=== PATIENT | female | born 1980 | race Caucasian/White ===

== ENCOUNTER 2024-06-10 12:44 | Outpatient (OUT) | payer OTHER, SELFPAY | END 2024-06-10 12:45 | disposition home or self-care (01) | LOC: SLEEP 12:44 | PROVIDERS: PCP Family Medicine; Visit Provider Family Medicine | DX: G47.33 Obstructive sleep apnea (adult) (pediatric) (principal) | CPT/HCPCS: 95806 ==

== ENCOUNTER 2024-10-01 15:47 | Outpatient (OUT) | payer OTHER, SELFPAY ==
[2024-10-01 16:42] LABS: Basophils Absolute Auto 0.1 10^3/uL (0.0-0.1); Basophils Percent Auto 0.9 % (0.2-2.0); Eosinophils Absolute Auto 0.3 10^3/uL (0.0-0.7); Eosinophils Percent Auto 4.9 % (0.9-7.0); Hematocrit 32.7 % (36.0-48.0); Hemoglobin 10.4 g/dL (12.0-16.0); Immature Granulocytes Abs Auto 0.01 10^3/uL (0.00-0.03); Immature Granulocytes Pct Auto 0.2 % (0.0-0.5); Lymphocytes Absolute Auto 2.2 10^3/uL (1.2-3.8); Lymphocytes Percent Auto 37.1 % (20.5-60.0); Mean Corpuscular HGB Conc 31.8 g/dL (29.9-35.2); Mean Corpuscular Hemoglobin 26.4 pg (26.7-34.0); Mean Platelet Volume 11.1 fL (9.5-13.5); Monocytes Absolute Auto 0.4 10^3/uL (0.3-0.8); Monocytes Percent Auto 7.1 % (1.7-12.0); Neutrophils Absolute Auto 2.9 10^3/uL (1.4-6.5); Neutrophils Percent Auto 49.8 % (43.0-75.0); Platelet Count 334 10^3/uL (150-450); Red Blood Count 3.94 10^6/uL (4.20-5.40); Red Cell Distribution Width 13.7 % (11.0-15.0); White Blood Count 5.9 10^3/uL (4.0-11.0)
[2024-10-01 16:56] LABS: Erythrocyte Sedimentation Rate 51 mm/hr (<=20)
[2024-10-01 17:01] LABS: Free T4 0.92 ng/dL (0.76-1.46)
[2024-10-01 17:04] LABS: Alanine Aminotransferase 19 U/L (14-59); Albumin Globulin Ratio 0.9; Albumin Level 3.5 g/dL (3.4-5.0); Alkaline Phosphatase 105 U/L (46-116); Anion Gap 12.9; Aspartate Amino Transferase 21 U/L (15-37); Bilirubin Total 0.3 mg/dL (0.2-1.0); C Reactive Protein 1.06 mg/dL (<=0.50); Calcium 8.9 mg/dL (8.5-10.1); Carbon Dioxide 25.3 mmol/L (21.0-32.0); Chloride 105 mmol/L (98-107); Estimated GFR (African America >60 (>=60 mL/min/1.73m^2); Estimated GFR (Non-African Ame >60 (>=60 mL/min/1.73m^2); Glucose 101 mg/dL (74-106); Potassium 4.2 mmol/L (3.5-5.1); Sodium 139 mmol/L (136-145); Thyroid Stimulating Hormone 12.753 uIU/mL (0.358-3.740); Total Protein 7.5 g/dL (6.4-8.2); Uric Acid 3.7 mg/dL (2.6-6.0)
[2024-10-03 06:08] LABS: Antistreptolysin O Ab 247.9 IU/mL (0.0-200.0)
[2024-10-03 15:08] LABS: Anti-DNA (DS) Ab Qn <1 IU/mL (0-9); Antichromatin Antibodies <0.2 AI (0.0-0.9); RNP Antibodies <0.2 AI (0.0-0.9); Rheumatoid Factor (RF) <10.0 IU/mL (<14.0); Sjogren's Anti-SS-A <0.2 AI (0.0-0.9); Sjogren's Anti-SS-B 0.3 AI (0.0-0.9)
[2024-10-07 11:09] LABS: Antinuclear Antibodies, IFA Negative (.)
== END 2024-10-01 15:48 | disposition home or self-care (01) ==
LOC: LAB 15:48
PROVIDERS: PCP Family Medicine; Visit Provider Family Medicine
DX: M25.50 Pain in unspecified joint (principal)
CPT/HCPCS: 36415; 80053; 84439; 84443; 84550; 85025; 85652; 86038; 86060; 86140

== ENCOUNTER 2024-10-03 10:28 | Outpatient (REF) | payer OTHER, SELFPAY ==
--- OUTSIDE RECORDS SUMMARY | 2024-10-03 10:43 | XMS_ITS | CCD ---
Author Organization [facility] Care Team Providers Care Applications Developer Name Role Phone UNKNOWN, PROVIDER Unavailable Unavailable DESI MANJARREZ Unavailable Unavailable Desi Manjarrez Primary Care Provider Desi Manjarrez Primary Care Provider PREETI GARZON Attending Unavailable DESI MANJARREZ Primary Care Unavailable ELOY ESCALANTE Attending Unavailable DESI MANJARREZ Primary Care Unavailable PREETI GARZON Admitting Unavailable PREETI GARZON Attending Unavailable DESI MANJARREZ Primary Care Unavailable PREETI GARZON Attending Unavailable ELOY ESCALANTE Referring Unavailable DESI MANJARREZ Primary Care Unavailable PREETI GARZON Admitting Unavailable Desi Manjarrez Primary Care Provider Desi aMnjarrez Primary Care Provider Desi Manjarrez Primary Care Provider ROB NG Attending Unavailable DESI MANJARREZ Primary Care Unavailable DESI MANJARREZ Primary Care Unavailable ITALIA VERNON Attending Unavailable DESI MANJARREZ Primary Care Unavailable JOSELINE CADET Attending Unavailable Desi Manjarrez MD Primary Care Provider DR DESI MANJARREZ Primary Care Unavailable DR GAEL PA Admitting Unavailable THIERNO, DR MAYO Attending Unavailable DR GAEL PA Consulting Unavailable KITTY JEWELL Consulting Unavailable Desi Manjarrez MD Primary Care Provider [phone] Desi Manjarrez MD Primary Care Provider DESI MANJARREZ Primary Care Unavailable JOSE ADEN Attending Unavailable FANG, GWENDOLINE Admitting Unavailable FANG, GWENDOLINE Attending Unavailable FANG, GWENDOLINE Referring Unavailable HOY, DESI M Primary Care Unavailable FANG, GWENDOLINE Admitting Unavailable FANG, GWENDOLINE Attending Unavailable JOSSELINE, DESI M Primary Care Unavailable Desi Manjarrez MD Primary Care Provider [phone] Antolin CASTREJON, Carlos Callahan Attending Unavailab aroldo Dangelo MD, Carlos Callahan Attending Unavailab Desi Navarrete MD Primary Care Unavailepifanio Dangelo MD, Carlos Callahan Attending Unavailab Desi Navarrete MD Primary Care Provider [phone] ARTIE BURDEN Attending Unavailable HOY, DESI M Primary Care Unavailable WHARRBETZAIDA Pineda I Attending Unavailable UMERARRChelita BETZAIDA I Referring Unavailable WHARRChelita, BETZAIDA I Admitting Unavailable WHARRBETZAIDA Pineda I Attending Unavailable DANIELA ASTORGA Attending Unavailable YESENIA BENDER Attending Unavailable WHARRY, BETZAIDA Referring Unavailable HOY, DESI M Primary Care Unavailable IOANA CLINTON I Attending Unavailable NGUYEN HERNANDEZ Attending Unavailabl e NGUYEN HERNANDEZ Referring Unavailabl e HOY, DESI M Primary Care Unavailable NGUYEN HERNANDEZ Attending Unavailabl e NGUYEN HERNANDEZ Referring Unavailabl e HOY, DESI M Primary Care Unavailable NGUYEN HERNANDEZ Attending Unavailabl e NGUYEN HERNANDEZ Referring Unavailabl e HOY, DESI M Primary Care Unavailable MARLEN DEVI F Admitting Unavail able MARLEN DEVI F Attending Unavail able HOY, DESI M Primary Care Unavailable NGUYEN HERNANDEZ Attending Unavailabl e NGUYEN HERNANDEZ Referring Unavailabl e HOY, DESI M Primary Care Unavailable NGUYEN HERNANDEZ Referring Unavailabl e HOY, DESI M Primary Care Unavailable Allergies Allergy Classification Reported Allergen(s) Allergy Type Date of Onset Reaction(s) Facility Cephalosporins (antibiotic) (1 source) cefTRIAXone Drug Allergy 10-22-19 Rash [facility] Sulfonamides (antibiotic) (1 source) Sulfonamides (Antibiotic) Drug Allergy 05-13-20 [facility] (20 sources) cefTRIAXone; Translations: [Unknown] Drug Allergy 10-22-19 Rash [facility] (6 sources) Sulfonamides (Antibiotic) Propensity to adverse reactions to drug 05-13-20 [place] (1 source) cefTRIAXone Drug Allergy 12-05-19 [facility] (1 source) Sulfamethoxazole / Trimethoprim Drug Allergy 06-18-20 [facility] (11 sources) Sulfonamides (Antibiotic) Propensity to adverse reactions to drug 05-13-20 [facility] (3 sources) Sulfonamides (Antibiotic); Translations: [SULFA (SULFONAMIDE ANTIBIOTICS)] Propensity to adverse reactions to drug (disorder) 04-23-20 [facility] Repository Medications Current Medications Medication Drug Class(es) Dates Sig (Normalized) Sig (Original) acetaminophen 325 mg / HYDROcodone bitartrate 5 mg oral tablet (15 sources) Opioid Agonist Start: 02-18-2024 End: 02-23-2024 HYDROcodone-acetamin ophen (NORCO) 5-325 MG per tablet Indications: Postoperative pain Take 1 tablet by mouth every 6 hours as needed for Pain for up to 5 days. Intended supply: 5 days. Take lowest dose possible to manage pain Max Daily Amount: 4 tablets 10 tablet 0 02/18/2024 02/23/2024 Active Start: 04-25-2020 End: 04-25-2020 HYDROcodone-acetaminophen (N ORCO) 5-325 MG per tablet 2 tablet Start: 04-25-2020 End: 04-28-2020 take 1 tablet by mouth every eight hours as needed for pain HYDROcodone-acetaminophen (NORCO) 5-325 mg per tablet TAKE 1 TABLET BY MOUTH EVERY 8 HOURS NEEDED FOR PAIN for up to 3 (THREE) days 0 04/29/2020 Active Start: 10-21-2019 End: 10-22-2019 take 1 tablet by mouth every four hours as needed HYDROcodone-acetaminophen (NORCO) 5-325 mg per tablet 1 tablet Start: 08-02-2019 End: 08-03-2019 hydroCODone-acetaminophen (N ORCO) 5-325 MG per tablet 1 Each Start: 08-02-2019 End: 11-20-2022 take 1 tablet by mouth every six hours as needed for pain hydroCODone-acetaminophen 5-325 MG Tab tablet Indications: Kidney stone Take 1 tablet by mouth every 6 hours as needed for Severe Pain for up to 3 days. 12 tablet 0 08/02/2019 11/20/2022 Discontinued (Stop Taking at Discharge) Start: 05-14-2019 End: 05-17-2019 take 1 tablet by mouth every eight hours as needed for pain HYDROcodone-acetaminophen (NORCO) 5-325 MG per tablet Indications: Kidney stone Take 1 tablet by mouth every 8 hours as needed for Pain for up to 3 days. 9 tablet 0 05/14/2019 05/17/2019 Active calcium chloride 0.0014 meq/ ml / potassium chloride 0.004 meq/ml / sodium chloride 0.103 meq/ml / sodium lactate 0.028 meq/ml injectable solution (2 sources) Start: 02-18-2024 lactated ringe rs IV soln infusion Start: 12-26-2021 lactated ringe rs infusion cholecalciferol 0.05 mg oral capsule (6 sources) Vitamin D Start: 11-27-2023 take 1 capsule by mouth once daily Cholecalciferol (Vitamin D3) 50 MCG capsule Take 50 mcg by mouth daily. 11/27/2023 Active ciprofloxacin 500 mg oral tablet (3 sources) Quinolone Antimicrobial Start: 10-22-2019 End: 10-29-2019 take 1 tablet by mouth twice daily ciprofloxacin HCl (Cipro) 500 MG tablet Take 1 (one) tablet (500 mg total) by mouth 2 (two) times a day for 7 days . 14 tablet 0 10/22/2019 10/29/2019 Active Start: 05-14-2019 End: 05-24-2019 take 1 tablet by mouth twice daily ciprofloxacin (CIPRO) 500 MG tablet Take 1 tablet by mouth 2 times daily for 10 days 20 tablet 0 05/14/2019 05/24/2019 Active cyclobenzaprine hydrochloride 10 mg oral tablet (4 sources) Muscle Relaxant Start: 11-29-2023 End: 11-29-2023 10 mg, Oral, ONCE, 1 dose, On Mely 11/29/23 at 2215, Dispense to home- home pack Start: 11-29-2023 End: 12-04-2023 take 1 tablet by mouth three times daily as needed for muscle spasms Cyclobenzaprine 10 MG tablet Take 1 tablet by mouth 3 times daily as needed for Muscle spasms for up to 5 days. This medication can cause drowsiness. Do not drive or operate machinery while taking this medication. 15 tablet 11/29/2023 Active drospirenone 3 mg / ethinyl estradiol 0.03 mg oral tablet (3 sources) Progestin, Estrogen Start: 05-13-2020 take 1 tablet by mouth once daily drospirenone-ethinyl estradiol (LEO 28) 3-0.03 MG TABS Indications: Screening for cervical cancer Take 1 tablet by mouth daily 1 packet 12 05/13/2020 Active escitalopram 10 mg oral tablet (6 sources) Serotonin Reuptake Inhibitor Start: 09-02-2024 take 1 tablet by mouth once daily escitalopram (LEXAPRO) 10 MG tablet Indications: Adjustment disorder with depressed mood Take 1 tablet by mouth daily 30 tablet 11 09/02/2024 Active Start: 05-28-2023 take 1 tablet by val th once daily escitalopram (LEXAPRO) 10 MG tablet Indications: Adjustment disorder with depressed mood Take 1 tablet by mouth daily 30 tablet 11 05/28/2023 Active fluconazole 100 mg oral tablet (6 sources) Azole Antifungal Start: 04-25-2020 End: 04-25-2020 fluconazole (DIFLUCAN) tablet 200 mg Start: 04-25-2020 End: 08-25-2020 fluconazole (DIFLUCAN) 100 M G tablet TAKE 1 TABLET BY MOUTH for 1 (ONE) dose after completing oral antibiotics 0 04/29/2020 Active Start: 07-13-2019 End: 07-16-2019 take 1 tablet by mouth once daily fluconazole (DIFLUCAN) 100 MG tablet Take 1 tablet by mouth daily for 3 days 3 tablet 0 07/13/2019 07/16/2019 Active ibuprofen 800 mg oral tablet (19 sources) Nonsteroidal Anti-inflammatory Drug Start: 11-20-2022 take 1 tablet by mouth every eight hours as needed for pain ibuprofen (ADVIL;MOTRIN) 800 MG tablet Indications: Frontal headache TAKE 1 TABLET BY MOUTH EVERY 8 HOURS NEEDED FOR PAIN 60 tablet 05/23/2023 Active Start: 05-14-2019 take 1 tablet by val th every six hours as needed for pain ibuprofen (IBU) 600 MG tablet Take 1 tablet by mouth every 6 hours as needed for Pain 30 tablet 0 05/14/2019 Suspended End: 07-13-2019 take 1 tablet by mouth every six hours as needed for pain ibuprofen (ADVIL;MOTRIN) 200 MG tablet Take 200 mg by mouth every 6 hours as needed for Pain 0 07/13/2019 Discontinued (LIST CLEANUP) ketorolac tromethamine 10 mg oral tablet (4 sources) Nonsteroidal Anti-inflammatory Drug, Cyclooxygenase Inhibitor Start: 02-18-2024 End: 02-17-2025 take 1 tablet by mouth every six hours as needed for pain ketorolac (TORADOL) 10 MG tablet Take 1 tablet by mouth every 6 hours as needed for Pain 20 tablet 0 02/18/2024 02/17/2025 Active Start: 12-26-2021 End: 12-26-2022 take 1 tablet by mouth every six hours as needed for pain ketorolac (TORADOL) 10 MG tablet Take 1 tablet by mouth every 6 hours as needed for Pain 10 tablet 0 12/26/2021 12/26/2022 Active Start: 10-21-2019 End: 10-21-2019 ketorolac (TORADOL) injectio n 30 mg Start: 05-14-2019 End: 05-14-2019 ketorolac (TORADOL) injectio n 30 mg levothyroxine sodium 0.15 mg oral tablet (6 sources) l-Thyroxine Start: 01-22-2024 take 1 tablet by mouth once daily levothyroxine (SYNTHROID) 150 MCG tablet Take 1 tablet by mouth daily 01/23/2024 Active 2 ml metoclopramide 5 mg/ml prefilled syringe (1 source) Dopamine-2 Receptor Antagonist Start: 02-18-2024 End: 02-19-2024 10 mg, IntraVENous, ONCE PRN, 1 dose, Starting on Sun02/18/24 at 1719, Until Sun02/19/24 at 1719, Nausea Secondary antiemetic therapy. PACU only naloxone 0.4 mg in 10 mL sodium chloride syringe (1 source) Start: 02-18-2024 IntraVENous, PRN, Opioid Reversal, Starting on Sun02/18/24 at 1719 PRN if respiratory rate is less than 6/min and patient is difficult to arouse then notify physician STAT. Mix 9 mL of sodium chloride 0.9% with 0.4 mg (1 mL) of naloxone (NARCAN) in 10 mL syringe. (Note: dilution is 0.04 mg/mL) Give 0.08 mg (2 mL of special dilution), slow IV push, repeat up to 0.4 mg (10 mL) or until patient is responsive to physical stimulation and respiratory rate is equal to or greater than 6 breaths/min. Continue to observe, if no response within 3 minutes of administration of 0.4 mg (10 mL) total, repeat dose (0.4 mg as administered previously). Concentration 0.04 mg/mL PACU only nitrofurantoin, macrocrystals 25 mg / nitrofurantoin, monohydrate 75 mg oral capsule (4 sources) Nitrofuran Antibacterial Start: 05-11-2020 End: 08-25-2020 take 1 capsule by mouth twice daily nitrofurantoin, macrocrystal-monoh ydrate, (MACROBID) 100 MG capsule TAKE 1 CAPSULE BY MOUTH TWICE DAILY FOR 7 DAYS 0 05/11/2020 Active 2 ml ondansetron 2 mg/ml injection (18 sources) Serotonin-3 Receptor Antagonist Start: 02-18-2024 End: 02-19-2024 4 mg, IntraVENous, ONCE PRN, 1 dose, Starting on Sun02/18/24 at 1719, Until Sun02/19/24 at 1719, Nausea Initial antiemetic therapy. PACU only Start: 11-20-2022 End: 11-20-2022 Ondansetron 4mg/2ml (ZOFRAN) injection 4 mg Start: 04-25-2020 take 1 tablet by val th every six hours as needed for nausea ondansetron (ZOFRAN ODT) 4 MG disintegrating tablet Take 1 tablet by mouth every 6 hours as needed for Nausea or Vomiting 10 tablet 0 04/25/2020 Active Start: 10-21-2019 End: 10-22-2019 take 4 mg intravenous route every six hours as needed ondansetron (ZOFRAN) injection 4 mg Start: 05-14-2019 End: 12-13-2021 take 1 tablet by mouth every four hours as needed for nausea ondansetron (ZOFRAN ODT) 4 MG disintegrating tablet Take 1 tablet by mouth every 4 hours as needed for Nausea or Vomiting 10 tablet 0 05/14/2019 12/13/2021 Discontinued (Therapy completed) 24 hr oxybutynin chloride 10 mg extended release oral tablet (4 sources) Cholinergic Muscarinic Antagonist Start: 10-22-2019 End: 11-01-2019 take 1 tablet by mouth once daily oxybutynin (DITROPAN-XL) 10 MG 24 hr tablet Take 1 (one) tablet (10 mg total) by mouth daily for 10 days . 10 tablet 0 10/22/2019 11/01/2019 Active phenazopyridine hydrochloride 100 mg oral tablet (4 sources) Start: 10-22-2019 End: 11-01-2019 take 1 tablet by mouth three times daily phenazopyridine (PYRIDIUM) 100 MG tablet Take 1 (one) tablet (100 mg total) by mouth 3 (three) times a day for 10 days . 30 tablet 0 10/22/2019 11/01/2019 Active predniSONE 20 mg oral tablet (2 sources) Start: 11-29-2023 End: 11-29-2023 take 1 dose by mouth once 40 mg, Oral, ONCE, 1 dose, On Mely 11/29/23 at 2215 Start: 11-29-2023 End: 12-03-2023 take 2 tablets by mouth once daily predniSONE 20 MG tablet Take 2 tablets by mouth daily for 4 days. 8 tablet 11/29/2023 12/03/2023 Active Vit-Fe Fumarate-FA ( VITAMINS) 28-0.8 MG TABS (3 sources) Start: 09-28-2022 take 1 tablet by val th once daily Vit-Fe Fumarate-FA ( VITAMINS) 28-0.8 MG TABS Take 1 tablet by mouth daily 90 tablet 3 09/28/2022 Active Hnlppajke-Tmuhhlzqu-Y orethind (Myfembree) 40-1-0.5 MG tablet (2 sources) Start: 07-10-2023 Relugolix-Estr adiol-N orethind (Myfembree) 40-1-0.5 MG tablet Take 40 mg by mouth daily. 07/10/2023 Active Hbjwxpiwk-Dmreaoliu-G orethind 40-1-0.5 MG TABS (6 sources) Start: 07-10-2023 take 1 tablet by val th once daily Rkeygxfeg-Bnklscqbc-A orethind 40-1-0.5 MG TABS Take 1 tablet by mouth daily 30 tablet 5 07/10/2023 Active 5 ml sodium chloride 9 mg/ml injection (18 sources) Start: 02-18-2024 take 1 dose intravenously twice daily 5-40 mL, IntraVENous, EVERY 12 HOURS SCHEDULED (2 times per day), First dose on Sun02/18/24 at 2100, Until Discontinued For Line Patency: Peripheral IV = 5 mL; Midline or Central Line = 10 mL/lumen. &n bsp;If following IV push medication, administer flush at same rate as the IV push. Flush volume is determined by type of infusion therapy being given. For non-viscous solutions use: Peripheral IV = 5 mL Midline or Central Line = 10 mL/lumen F or viscous solutions (i.e. blood components, parenteral nutrition, contrast media, or after obtaining blood sample) use: Peripheral IV = 10 mL Midline or Central Line = 20 mL/lumen PACU only Start: 02-18-2024 sodium chlorid e flush 0.9 % injection 5-40 mL Start: 02-18-2024 IntraVENous, a t 5-250 mL/hr, PRN, if patient receiving piggyback infusions and maintenance fluids are not ordered OR KVO fluids to protect IV site / prevent frequent line interruptions/ long duration, Starting on Sun02/18/24 at 1719 For piggyback infusion, administer at same rate as piggyback for a total of 25 mL. Enter 25 mL into dose field and piggyback rate into rate field of order. If piggyback is infusing at a rate less than 100 mL/hr, enter 25 mL into dose field and 100 mL/hr into rate field of order. For KVO fluids, enter rate of 20 mL/hr or less into rate field of order. PACU only Start: 02-18-2024 take 5-40 mL intrave nously once as needed 5-40 mL, IntraVENous, PRN, Starting on Sun02/18/24 at 1719, Until Discontinued, Line Care, After every IV line use For Line Patency: Peripheral IV = 5 mL; Midline or Central Line = 10 mL/lumen. If following IV push medication, administer flush at same rate as the IV push. Flush volume is determined by type of infusion therapy being given. For non-viscous solutions use: Peripheral IV = 5 mL Midline or Central Line = 10 mL/lumen For viscous solutions (i.e. blood components, parenteral nutrition, contrast media, or after obtaining blood sample) use: Peripheral IV = 10 mL Midline or Central Line = 20 mL/lumen PACU only Start: 02-18-2024 0.9 % sodium c hloride infusion Start: 02-18-2024 sodium chlorid e flush 0.9 % injection 5-40 mL Start: 11-20-2022 End: 11-20-2022 Sodium chloride 0.9% IV solu tion 1,000 mL Start: 11-20-2022 End: 11-20-2022 Sodium chloride 0.9% IV solu tion Start: 12-26-2021 sodium chlorid e flush 0.9 % injection 5-40 mL Start: 12-26-2021 sodium chlorid e flush 0.9 % injection 5-40 mL Start: 12-26-2021 0.9 % sodium c hloride infusion Start: 12-26-2021 sodium chlorid e flush 0.9 % injection 5-40 mL Start: 05-10-2020 End: 05-10-2020 sodium chloride 0.9% (NS) maxwell socorro 500 mL Start: 10-21-2019 End: 10-22-2019 sodium chloride 0.9% (NS) Start: 10-21-2019 End: 10-21-2019 sodium chloride 0.9% (NS) maxwell socorro 1,000 mL Start: 08-02-2019 End: 08-02-2019 sodium chloride 0.9% IV solu tion 1,000 mL sulfamethoxazole 800 mg / trimethoprim 160 mg oral tablet (6 sources) Dihydrofolate Reductase Inhibitor Antibacterial, Sulfonamide Antimicrobial Start: 04-25-2020 End: 04-25-2020 sulfamethoxazole-trimethopri m (BACTRIM DS;SEPTRA DS) 800-160 MG per tablet 1 tablet Start: 04-25-2020 End: 05-02-2020 take 1 tablet by mouth twice daily sulfamethoxazole-trimethoprim (BACTRIM DS,SEPTRA DS) 800-160 mg per tablet Take 1 tablet by mouth 2 (two) times a day for 7 days . 0 04/29/2020 Active Start: 07-28-2019 End: 07-28-2019 sulfamethoxazole-trimethopri m (BACTRIM DS, SEPTRA DS) 800-160 MG per tablet 2 tablet Start: 07-28-2019 End: 08-02-2019 take 1 tablet by mouth twice daily sulfamethoxazole-trimethoprim 800-160 MG Tab per tablet Take 1 tablet by mouth 2 times daily for 5 days. 10 tablet 0 07/28/2019 08/02/2019 Discontinued (Therapy completed) Completed/Discontinued Medications Medication Drug Class(es) Dates Sig (Normalized) Sig (Original) acetaminophen 325 mg oral tablet (5 sources) Start: 02-18-2024 End: 02-18-2024 acetaminophen (TYLENOL) tablet 650 mg Start: 11-20-2022 End: 11-20-2022 Acetaminophen (TYLENOL) tabl et 650 mg Start: 12-26-2021 End: 12-26-2021 acetaminophen (TYLENOL) tabl et 650 mg Start: 10-21-2019 End: 10-22-2019 take 1 tablet by mouth every four hours as needed acetaminophen (TYLENOL) tablet 650 mg Start: 08-02-2019 End: 08-02-2019 acetaminophen (TYLENOL) tabl et 975 mg [id number] 200 actuat albuterol 0.09 mg/actuat metered dose inhaler (8 sources) beta2-Adrenergic Agonist Start: 10-10-2018 take 2 puff(s) by inhalation every four hours as needed for wheezing albuterol sulfate HFA (VENTOLIN HFA) 108 (90 Base) MCG/ACT inhaler Inhale 2 puffs into the lungs every 4 hours as needed for Wheezing 1 Inhaler 0 10/10/2018 Active Start: 10-10-2018 take 2 puff(s) by in halation every four hours as needed for wheezing albuterol sulfate HFA (VENTOLIN HFA) 108 (90 Base) MCG/ACT inhaler Inhale 2 puffs into the lungs every 4 hours as needed for Wheezing 1 Inhaler 0 10/10/2018 Suspended cefTRIAXone (ROCEPHIN) 1 g in sodium chloride 0.9% (MB PLUS) 50 mL (total volume) IVPB (1 source) Start: 08-02-2019 End: 08-02-2019 cefTRIAXone (ROCEPHIN) 1 g in sodium chloride 0.9% (MB PLUS) 50 mL (total volume) IVPB cefTRIAXone (ROCEPHIN) 1 g in sterile water 10 mL IV syringe (1 source) Start: 05-14-2019 End: 05-14-2019 cefTRIAXone (ROCEPHIN) 1 g in sterile water 10 mL IV syringe cephalexin 250 mg oral capsule (2 sources) Cephalosporin Antibacterial Start: 08-02-2019 End: 08-02-2019 cephALEXin (KEFLEX) capsule 1,000 mg Start: 08-02-2019 End: 08-09-2019 take 2 capsules by mouth every twelve hours cephALEXin 500 MG Cap capsule Take 2 capsules by mouth every 12 hours for 7 days. 28 capsule 0 08/02/2019 08/09/2019 Active dimenhyDRINATE 50 mg oral ta blet (2 sources) Start: 02-18-2024 End: 02-18-2024 dimenhyDRINATE (DRAMAMINE) tablet 50 mg Start: 12-26-2021 End: 12-26-2021 dimenhyDRINATE (DRAMAMINE) t ablet 50 mg diphenhydrAMINE (1 source) Histamine-1 Receptor Antagonist Start: 05-10-2020 End: 05-10-2020 diphenhydrAMINE (BENADRYL) injection 50 mg docusate sodium 50 mg / sennosides, mcfp 8.6 mg oral tablet (1 source) Start: 10-21-2019 End: 10-22-2019 senna-docusate (SENNA-S) 8.6-50 mg per tablet 1 tablet 0.4 ml enoxaparin sodium 100 mg/ml prefilled syringe (1 source) Low Molecular Weight Heparin Start: 02-18-2024 End: 02-18-2024 enoxaparin (LOVENOX) injection 40 mg 2 ml famotidine 10 mg/ml injection (1 source) Histamine-2 Receptor Antagonist Start: 05-10-2020 End: 05-10-2020 famotidine (PEPCID) injection 20 mg 2 ml fentaNYL 0.05 mg/ml injection (3 sources) Opioid Agonist Start: 02-18-2024 50 mcg, IntraV ENous, EVERY 5 MIN PRN, 2 doses, Starting on Sun02/18/24 at 1719, Until Discontinued, Pain Severe (7-10) For Phase I. If Phase II oral narcotics have been administered in the last 60 minutes, do not administer IV narcotics unless specifically approved by provider. PACU only Start: 02-18-2024 25 mcg, IntraV ENous, EVERY 5 MIN PRN, 2 doses, Starting on Sun02/18/24 at 1719, Until Discontinued, Pain Moderate (4-6) For Phase I. If Phase II oral narcotics have been administered in the last 60 minutes, do not administer IV narcotics unless specifically approved by provider. PACU only Start: 12-26-2021 fentaNYL (SUBL IMAZE) injection 25 mcg 0.5 ml HYDROmorphone hydrochloride 1 mg/ml prefilled syringe (4 sources) Opioid Agonist Start: 10-21-2019 End: 10-22-2019 0.5 mg, Intravenous, Every 5 min PRN, Pain, Starting Sun10/22/19 at 1525, For 6 doses, PACU (only) [] Give if fentanyl not effective or not ordered. [] Do not give more than 3 mg total. Start: 10-21-2019 End: 10-21-2019 HYDROmorphone (DILAUDID) inj ection 0.5 mg Start: 08-02-2019 End: 08-02-2019 HYDROmorphone (DILAUDID) inj ection 1 mg hyoscyamine sulfate 0.125 mg sublingual tablet (1 source) Start: 10-22-2019 End: 10-22-2019 take 1 tablet under the tongue every four hours as needed 125 mcg, Sublingual, Every 4 hours PRN, bladder spasms, Starting Sun10/22/19 at 1715 methIMAzole 10 mg oral tablet (2 sources) Thyroid Hormone Synthesis Inhibitor End: 02-12-2024 take 1.5 tablets by mouth in the morning methIMAzole (TAPAZOLE) 10 MG tablet Take 1.5 tablets by mouth in the morning and 1.5 tablets in the evening. 0 02/12/2024 Discontinued (LIST CLEANUP) 1 ml methylergonovine maleate 0.2 mg/ml injection (1 source) Ergot Derivative Start: 11-20-2022 End: 11-20-2022 Methylergonovine (METHERGINE) injection 200 mcg methylPREDNISolone 125 mg injection (1 source) Corticosteroid Start: 05-10-2020 End: 05-10-2020 methylPREDNISolone sod suc(PF) (SOLU-medrol) Injection 125 mg 1 ml morphine sulfate 2 mg/ml cartridge (2 sources) Opioid Agonist Start: 11-20-2022 End: 11-20-2022 Morphine (PF) injection 2 mg Start: 11-20-2022 End: 11-20-2022 Morphine sulfate (PF) inject ion 4 mg naloxone (NARCAN) injection 0.1 mg (2 sources) Start: 10-21-2019 End: 10-22-2019 naloxone (NARCAN) injection 0.1 mg Start: 10-21-2019 End: 10-22-2019 naloxone (NARCAN) injection 0.1 mg oxyCODONE hydrochloride 5 mg oral tablet (2 sources) Opioid Agonist Start: 02-18-2024 End: 02-18-2024 oxyCODONE (ROXICODONE) immediate release tablet 10 mg Start: 02-18-2024 End: 02-19-2024 take 1 dose by mouth once 5 mg, Oral, ONCE PRN, 1 dose , Starting on Sun02/18/24 at 1719, Until Sun02/19/24 at 1719, Pain Moderate (4-6), Pain Severe (7-10) PHASE II PACU only microencapsulated potassium chloride 10 meq extended release oral tablet (1 source) Start: 05-10-2020 End: 05-10-2020 potassium chloride SA (K-DUR,KLOR-CON) CR tablet 40 mEq tamsulosin hydrochloride 0.4 mg oral capsule (9 sources) alpha-Adrener gic Merle Start: 08-02-2019 End: 11-20-2022 take 1 capsule by mouth once daily tamsulosin (FLOMAX) 0.4 MG capsule Take 1 capsule by mouth daily for 7 days 7 capsule 0 04/25/2020 08/25/2020 Discontinued (LIST CLEANUP) Start: 05-14-2019 End: 07-13-2019 take 1 capsule by mouth once daily tamsulosin (FLOMAX) 0.4 MG capsule Take 1 capsule by mouth daily for 10 days 10 capsule 0 05/14/2019 07/13/2019 Discontinued (LIST CLEANUP) Problems Active Problems Problem Classification Problem Date Documented Date Episodic/Chronic Abdominal pain (2 sources) Right flank pain; Translations: [Flank pain] Episodic Acute bronchitis (1 source) Acute bronchitis, unspecified; Translations: [ACUTE BRONCHITIS UNSPECIFIED] Onset: 08-04-2022 Episodic Deficiency and other anemia (1 source) Iron deficiency anemia; Translations: [Iron deficiency anemia, unspecified iron deficiency anemia type] Episodic Hemorrhage during ; abruptio placenta; placenta previa (1 source) Bleeding from female genital tract during ; Translations: [Antepartum hemorrhage, unspecified, unspecified trimester] Episodic Menstrual disorders (13 sources) Menorrhagia; Translations: [Excessive and frequent menstruation with regular cycle] Onset: 02-18-2024 Chronic Mycoses (1 source) Candidiasis of vagina; Translations: [Vaginal yeast infection] Episodic Neoplasms of unspecified nature or uncertain behavior (1 source) Neoplasm of unspecified behavior of endocrine glands and other parts of nervous system; Translations: [Neoplasm of unspecified behavior of endocrine glands and other parts of nervous system] Onset: 12-06-2023 Episodic Other complications of (2 sources) Missed ; Translations: [Missed ] Onset: 11-20-2022 Episodic Other diseases of kidney and ureters (1 source) Hydronephrosis due to ureteral obstruction; Translations: [Ureteral stone with hydronephrosis] Other female genital disorders (1 source) Abnormal uterine bleeding; Translations: [DUB (dysfunctional uterine bleeding)] Chronic Other female genital disorders (1 source) Heavy episode of vaginal bleeding; Translations: [Episode of heavy vaginal bleeding] Episodic Other lower respiratory disease (3 sources) Shortness of breath; Translations: [SHORTNESS OF BREATH] Onset: 08-02-2022 Episodic Other nervous system disorders (1 source) Postoperative pain ; Translations: [Other acute postprocedural pain] 02-18-2024 Episodic Other screening for suspected conditions (not mental disorders or infectious disease) (7 sources) Cancer cervix screening status; Translations: [Encounter for screening for malignant neoplasm of cervix] Onset: 06-17-2024 06-17-2024 Episodic Poisoning by other medications and drugs (1 source) Allergic reaction to drug; Translations: [Allergic reaction to drug, initial encounter] Episodic Residual codes; unclassified (1 source) Pain, unspecified; Translations: [Pain, unspecified] Onset: 11-24-2023 Episodic Spondylosis; intervertebral disc disorders; other back problems (4 sources) Dorsalgia, unspecified; Translations: [Spasm of back muscles] Onset: 09-06-2017 11-29-2023 Episodic Thyroid disorders (7 sources) 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 crisis or storm; Translations: [Graves' disease] Onset: 12-06-2023 04-02-2024 Chronic Unclassified (2 sources) Dorsalgia, unspecified / M54.9(ICD-9) Onset: 09-06-2017 Unclassified (1 source) Other and unspecified ovrexrtn or strnous move/pstr, init / X50.9XXA(ICD-9) Onset: 09-06-2017 Unclassified (1 source) Factory as the place of occurrence of the external cause / Y92.63(ICD-9) Onset: 09-06-2017 Unclassified (1 source) Civilian activity done for income or pay / Y99.0(ICD-9) Onset: 09-06-2017 Unclassified (1 source) Fibromyalgia / M79.7(ICD-9) Onset: 09-06-2017 Unclassified (1 source) Anxiety disorder, unspecified / F41.9(ICD-9) Onset: 09-06-2017 Unclassified (1 source) Cancer cervix screening status; Translations: [Screening for cervical cancer] Unclassified (1 source) CONTACT W/AND (SUSP) EXPOS COVID-19; Translations: [CONTACT W/AND (SUSP) EXPOS COVID-19] Onset: 08-04-2022 Unclassified (1 source) New Patient Onset: 12-06-2023 Urinary tract infections (3 sources) Acute cystitis; Translations: [Acute urinary tract infection] Episodic Past or Other Problems Problem Classification Problem Date Documented Date Episodic/Chronic Benign neoplasm of uterus (2 sources) Uterine leiomyoma; Translations: [Leiomyoma of uterus, unspecified] Onset: 02-18-2024 02-18-2024 Episodic Calculus of urinary tract (9 sources) Kidney stone; Translations: [Ureteric stone] Onset: 10-21-2019 10-21-2019 Episodic Deficiency and other anemia (7 sources) Iron deficiency anemia secondary to inadequate dietary iron intake; Translations: [Other iron deficiency anemias] Onset: 04-22-2021 10-24-2022 Episodic Other connective tissue disease (7 sources) Fibromyalgia; Translations: [Fibromyalgia] Onset: 02-01-2018 03-21-2023 Episodic Other nervous system disorders (2 sources) Other acute postprocedural pain; Translations: [Other acute postprocedural pain] Onset: 01-21-2024 Episodic Other and delivery including normal (17 sources) Normal ; Translations: [Encounter for supervision of other normal , unspecified trimester] Onset: 12-12-2014 06-06-2015 Episodic Spontaneous (13 sources) Incomplete miscarriage; Translations: [Incomplete spontaneous without complication] Onset: 11-20-2022 Episodic Unclassified (1 source) Onset: 07-09-2024 07-09-2024 Results Test Name Value Interpretation Reference Range Facility DBT Breast - left diagnostic on 09-19-2024 Benign findings. No mammographic or ultrasonographic evidence of malignancy. BIRADS: BIRADS - CATEGORY 2 Benign Findings. Normal interval follow-up is recommended in 12 months. OVERALL ASSESSMENT - BENIGN A letter of notification will be sent to the patient regarding the results. [employer] recommends annual mammograms for women 40 years and older. Performing Facility: [place] [address] [facility] Radiology Study observation (narrative) Nikolas [facility] AIDA DIGITAL DIAGNOSTIC UNILATERAL LEFTon 09-19-2024 [facility] AIDA DIGITAL DIAGNOSTIC UNILATERAL LEFT EXAMINATION: DIAGNOSTIC DIGITAL LEFT BREAST MAMMOGRAM WITH TOMOSYNTHESIS; TARGETED ULTRASOUND OF THE LEFT BREAST, 09/19/2024 9:49 am TECHNIQUE: Diagnostic mammography of the left breast was performed with tomosynthesis. 2D standard and 3D tomosynthesis combination imaging performed through the left breast. Computer aided detection was utilized in the interpretation of this exam.; Target ultrasound of the left breast was performed. Views: COMPARISON: August 07, 2024 HISTORY: ORDERING SYSTEM PROVIDED HISTORY: Abnormal mammogram of left breast TECHNOLOGIST PROVIDED HISTORY: Is the patient ?->No FINDINGS: Mammogram: The breasts are heterogeneously dense, which may obscure small masses. Area of concern in the medial left breast more anterior aspect sufficient disperses with spot compressed imaging. There is a persistent asymmetry in the far posteromedial left breast and ultrasound was performed. No additional mammographic findings. Ultrasound: Correlating with the mammographic findings small grouping of cysts overall simple 5 x 4 x 3 mm 10 o'clock position 12 cm from the nipple. Left axilla negative. IMPRESSION: Benign findings. No mammographic or ultrasonographic evidence of malignancy. BIRADS: BIRADS - CATEGORY 2 Benign Findings. Normal interval follow-up is recommended in 12 months. OVERALL ASSESSMENT - BENIGN A letter of notification will be sent to the patient regarding the results. [employer] recommends annual mammograms for women 40 years and older. Performing Facility: [place] [address] Interpreted by: Armando Oliveros DO Signed by: Armando Oliveros DO 09/19/24 Final result Normal [facility] No Panel Informationon 09-19 EXAMINATION: DIAGNOSTIC DIGITAL LEFT BREAST MAMMOGRAM WITH TOMOSYNTHESIS; TARGETED ULTRASOUND OF THE LEFT BREAST, 09/19/2024 9:49 am TECHNIQUE: Diagnostic mammography of the left breast was performed with tomosynthesis. 2D standard and 3D tomosynthesis combination imaging performed through the left breast. Computer aided detection was utilized in the interpretation of this exam.; Target ultrasound of the left breast was performed. Views: COMPARISON: August 07, 2024 HISTORY: ORDERING SYSTEM PROVIDED HISTORY: Abnormal mammogram of left breast TECHNOLOGIST PROVIDED HISTORY: Is the patient ?->No FINDINGS: Mammogram: The breasts are heterogeneously dense, which may obscure small masses. Area of concern in the medial left breast more anterior aspect sufficient disperses with spot compressed imaging. There is a persistent asymmetry in the far posteromedial left breast and ultrasound was performed. No additional mammographic findings. Ultrasound: Correlating with the mammographic findings small grouping of cysts overall simple 5 x 4 x 3 mm 10 o'clock position 12 cm from the nipple. Left axilla negative. PN RIS CONSOLIDATED No Panel InformationOrdered By: Armando Oliveros on 09-19-2024 [facility]olas [facility] [facility] Work Phone: US BREAST LIMITED LEFTon US BREAST LIMITED LEFT EXAMINATION: DIAGNOSTIC DIGITAL LEFT BREAST MAMMOGRAM WITH TOMOSYNTHESIS; TARGETED ULTRASOUND OF THE LEFT BREAST, 09/19/2024 9:49 am TECHNIQUE: Diagnostic mammography of the left breast was performed with tomosynthesis. 2D standard and 3D tomosynthesis combination imaging performed through the left breast. Computer aided detection was utilized in the interpretation of this exam.; Target ultrasound of the left breast was performed. Views: COMPARISON: August 07, 2024 HISTORY: ORDERING SYSTEM PROVIDED HISTORY: Abnormal mammogram of left breast TECHNOLOGIST PROVIDED HISTORY: Is the patient ?->No FINDINGS: Mammogram: The breasts are heterogeneously dense, which may obscure small masses. Area of concern in the medial left breast more anterior aspect sufficient disperses with spot compressed imaging. There is a persistent asymmetry in the far posteromedial left breast and ultrasound was performed. No additional mammographic findings. Ultrasound: Correlating with the mammographic findings small grouping of cysts overall simple 5 x 4 x 3 mm 10 o'clock position 12 cm from the nipple. Left axilla negative. IMPRESSION: Benign findings. No mammographic or ultrasonographic evidence of malignancy. BIRADS: BIRADS - CATEGORY 2 Benign Findings. Normal interval follow-up is recommended in 12 months. OVERALL ASSESSMENT - BENIGN A letter of notification will be sent to the patient regarding the results. [employer] recommends annual mammograms for women 40 years and older. Interpreted by: Armando Oliveros DO Signed by: Armando Oliveros DO 09/19/24 Final result Normal [facility] US Breast - left limitedon 0 09-19-2024 Benign findings. No mammographic or ultrasonographic evidence of malignancy. BIRADS: BIRADS - CATEGORY 2 Benign Findings. Normal interval follow-up is recommended in 12 months. OVERALL ASSESSMENT - BENIGN A letter of notification will be sent to the patient regarding the results. [employer] recommends annual mammograms for women 40 years and older. PN RIS CONSOLIDATED Radiology Study observation (narrative) Nikolas [facility] DBT Breast - bilateral scree ruthgokel 08-08-2024 Focal asymmetry is i n the left breast as above requiring additional mammographic workup. Full workup may require ultrasonography. BREAST DENSITY SUMMARY C: The breasts are heterogeneously dense which may obscure small masses. Breast tissue can be either dense or not dense. Dense tissue makes it harder to find breast cancer on a mammogram and also raises the risk of developing breast cancer. Your breast tissue is DENSE. In some people with dense tissue, other imaging tests in addition to mammogram may help find cancers. Talk to your health care provider about breast density, risks for breast cancer, and your individual situation. BI-RADS 0 BIRADS: BIRADS - CATEGORY 0 Incomplete: Need Additional Imaging Evaluation OVERALL ASSESSMENT - INCOMPLETE: NEED ADDITIONAL IMAGING EVALUATION. Performing Facility: [place] [address] [facility] CONSOLIDATED EXAMINATION: SCREENING DIGITAL BILATERAL MAMMOGRAM WITH TOMOSYNTHESIS, 08/07/2024 TECHNIQUE: Screening mammography was performed with tomosynthesis including MLO and CC views of the bilateral breasts. Computer aided detection was used for the interpretation of this exam. COMPARISON: None. Baseline study. HISTORY: Screening. No family history of breast cancer. No hormonal replacement therapy or breast interventions. TC score 7.93 FINDINGS: Bilateral breasts are composed of heterogeneously dense parenchyma. No skin thickening, nipple contour changes, suspicious calcifications, or areas of architectural distortion are noted. Focal asymmetries are present upper inner posterior left breast with additional mammographic workup advised. Full workup may require ultrasonography. Also noted is a focal asymmetry lower inner left breast middle depth with additional mammographic workup advised. [facility] CONSOLIDATED DBT Breast - bilateral scree ningOrdered By: Leanna Shahriar on 08-08-2024 [facility] Work Phone: [facility] AIDA DIGITAL SCREEN BILEpifanio TERALon 08-08-2024 [facility] AIDA DIGITAL SCREEN BILATERAL EXAMINATION: SCREENING DIGITAL BILATERAL MAMMOGRAM WITH TOMOSYNTHESIS, 08/07/2024 TECHNIQUE: Screening mammography was performed with tomosynthesis including MLO and CC views of the bilateral breasts. Computer aided detection was used for the interpretation of this exam. COMPARISON: None. Baseline study. HISTORY: Screening. No family history of breast cancer. No hormonal replacement therapy or breast interventions. TC score 7.93 FINDINGS: Bilateral breasts are composed of heterogeneously dense parenchyma. No skin thickening, nipple contour changes, suspicious calcifications, or areas of architectural distortion are noted. Focal asymmetries are present upper inner posterior left breast with additional mammographic workup advised. Full workup may require ultrasonography. Also noted is a focal asymmetry lower inner left breast middle depth with additional mammographic workup advised. IMPRESSION: Focal asymmetry is in the left breast as above requiring additional mammographic workup. Full workup may require ultrasonography. BREAST DENSITY SUMMARY C: The breasts are heterogeneously dense which may obscure small masses. Breast tissue can be either dense or not dense. Dense tissue makes it harder to find breast cancer on a mammogram and also raises the risk of developing breast cancer. Your breast tissue is DENSE. In some people with dense tissue, other imaging tests in addition to mammogram may help find cancers. Talk to your health care provider about breast density, risks for breast cancer, and your individual situation. BI-RADS 0 BIRADS: BIRADS - CATEGORY 0 Incomplete: Need Additional Imaging Evaluation OVERALL ASSESSMENT - INCOMPLETE: NEED ADDITIONAL IMAGING EVALUATION. Performing Facility: [place] [address] Interpreted by: Leanna Bess MD Signed by: Leanna Bess MD 08/08/24 Final result Normal [facility] DBT Breast - bilateral scree bouchra 08-07-2024 Radiology Study observation (narrative) Nikolas [facility] HPV DNA High Riskon 07-02-20 24 HPV Interp Normal [facility] Comment on above: Result Comment: This test amplifies and detects DNA of 14 high-risk HPV types associated with cervical cancer and its precursor lesions (HPV types 16,18, 31, 33, 35, 39, 45, 51, 52, 56, 58, 59, 66, and 68). Sensitivity may be affected by specimen collection methods, stage of infection, and the presence of interfering substances. Results should be interpreted in conjunction with other available laboratory and clinical data. A negative high-risk HPV result does not exclude the possibility of future cytologic HSIL or underlying CIN2-3 or cancer. This test is intended for medical purposes only and is not valid for the evaluation of suspected sexual abuse or for other forensic purposes. Performed By: #### H PVH #### [facility] [employer] [address] [place] [address] Field Cane Scaler Helper: Prasanna Michaels MD HPV Type 16 Not detected [facility] Comment on above: Performed By: #### H PVH #### [employer] [facility] [place] [address] Field Cane Scaler Helper: Prasanna Michaels MD HPV Type 18 Not detected [facility] Comment on above: Performed By: #### H PVH #### [facility] [employer] [facility] [place] [address] Field Cane Scaler Helper: Prasanna Michaels MD Other High Risk HPV Not detected Normal [facility] Comment on above: Performed By: #### H PVH #### [facility] [address] [place], [place] [id number] Field Cane Scaler Helper: Prasanna Michaels MD HPV DNA High Riskon 06-27-20 24 HPV Sample .THIN PREP Normal [facility] Comment on above: Performed By: #### H PVH #### [place] [address] [place], [place] [id number] Field Cane Scaler Helper: Prasanna Michaels MD Source CERVICAL MATERIAL Normal [facility] Comment on above: Performed By: #### H PVH #### [address] [id number] Field Cane Scaler Helper: Prasanna Michaels MD Cytology Reporton 06-17-2024 Cytology report Cyto stain.thin prep Doc (Cvx/Vag) (NOTE) Path Number: [id number] DIAGNOSIS Imaged ThinPrep Pap - Cervical (1 monolayer slide): Specimen Adequacy: Satisfactory for evaluation. - Endocervical/transformat ion zone component present. Descriptive Diagnosis: Atypical squamous cells of undetermined significance (ASC-US). Cytotech Screener: EY Electronically Signed Out Kat Henry. /06/27/2024 Procedure/Addendum HPV Procedure Report Date Ordered: 06/27/2024 Status: Signed Out Date Complete: 07/02/2024 By: System Interface Date Reported: 07/02/2024 Sample: HPV Type 16 Result: Not Detected Ref Range: Not Detected Sample: HPV Type 18 Result: Not Detected Ref Range: Not Detected Sample: Other High Risk HPV Result: Not Detected Ref Range: Not Detected Sample: HPV Interp Result: Ref Range: This test amplifies and detects DNA of 14 high-risk HPV types associated with cervical cancer and its precursor lesions (HPV types 16,18, 31, 33, 35, 39, 45, 51, 52, 56, 58, 59, 66, and 68). Sensitivity may be affected by specimen collection methods, stage of infection, and the presence of interfering substances. Results should be interpreted in conjunction with other available laboratory and clinical data. A negative high-risk HPV result does not exclude the possibility of future cytologic HSIL or underlying CIN2-3 or cancer. This test is intended for medical purposes only and is not valid for the evaluation of suspected sexual abuse or for other forensic purposes. Performed at [address] [address] ([phone] Source of Specimen: A: Imaged ThinPrep Pap - Cervical (1 monolayer slide) HPV Reflex?................. .....HPV if ASCUS Clinical History Contraceptive use Z12.4 Encounter for screening for malignant neoplasm of cervix LMP: 06/02/2024 Processing Lab: [address] [address] Interpretation performed at [address] [address] This Pap Test has been evaluated with the assistance of the ThinPrep Pap Test Imaging System. The Pap smear is a screening test primarily for squamous epithelial lesions, which is subject to both false negative and false positive results. Your patient should be reminded to consult you immediately if she experiences any suspicious signs or symptoms, regardless of her Pap smear result. GYNECOLOGIC CYTOLOGY REPORT Patient Name: LYSSA WEEKSN [facility] Rec: [id number] [facility] ANATOMIC PATHOLOGY [address] [place] [address]. [place], [place] [address] Normal [facility] 24-2 FAST - OUon 024 HV 24-2 FAST - OU Hare visual fiel d (24-2 JODY fast): full OU; MD +0.93 OD, +0.39 OS Normal [facility] Perimetry studyon 04-02-2024 Hare visual fiel d (24-2 JODY fast): full OU; MD +0.93 OD, +0.39 OS RADIOLOGY [facility] Radiology Study observation (narrative) [facility] HCG Qualitative, Serumon HCG ( test) Ql Negative NEGATIVE [facility] Comment on above: Specimens with hCG l evels near the threshold of the test (25 mIU/mL) may give a negative or indeterminate result. In such cases, another test should be performed with a new specimen in 48-72 hours. If early is suspected clinically in this setting, correlation with quantitative serum b-hCG level is suggested. [facility] has confirmed the use of plasma for this test. This has not been cleared or approved by the U.S. Food and Drug Administration. The FDA has determined that such clearance is not necessary. [facility] HCG Screen, Bloodon 02-18-20 24 HCG Screen, Blood Negative Normal [facility] Comment on above: Result Comment: Spec imens with hCG levels near the threshold of the test (25 mIU/mL) may give a negative or indeterminate result. In such cases, another test should be performed with a new specimen in 48-72 hours. If early is suspected clinically in this setting, correlation with quantitative serum b-hCG level is suggested. [facility] has confirmed the use of plasma for this test. This has not been cleared or approved by the U.S. Food and Drug Administration. The FDA has determined that such clearance is not necessary. Performed By: #### H CG #### [facility] [address] [place] [address] Field Cane Scaler Helper: Chandler Mccall MD Surgical Pathology Reporton 02-18-2024 Surgical Pathology Report (NOTE) Path Number: [id number] -- Diagnosis -- A. UTERINE FIBROID, MYOMECTOMY: Leiomyoma. Arianna Perea M.D. Electronically Signed Out [facility]/02/20/2024 Clinical Information Pre-Op Diagnosis: UTERINE LEIOMYOMA, UNSPECIFIED LOCATION Operative Findings: UTERINE FIBROIDS Operation Performed: UTERINE MYOMECTOMY ROBOTIC-LAPAROSCOPIC kb Source of Specimen A: UTERUINE FIBROID Gross Description KALLIE WEEKS, UTERINE FIBROID Received in formalin are fragments of patel-white, whorled myomatous nodules, 21 grams and 8.0 x 6.0 x 1.5 cm in aggregate. There is no hemorrhage or necrosis. Legal Technician sections 2cs. cydney Delgado/kunal2:02/19/2024 Microscopic Description Microscopic examination performed. Processing Lab: [facility] [address] Interpretation Performed at [address] [address] SURGICAL PATHOLOGY CONSULTATION Patient Name: KALLIE WEEKS [facility] Rec: [id number] [facility]FF[facility] (?) [facility] ANATOMIC PATHOLOGY [address] [facility]. [place], [place] [address] Normal [facility] CALCIUMon 01-22-2024 Calcium [Mass/Vol] 8.9 mg/dL Normal 8.5-10.5 [facility] Comment on above: Performed By: #### 1 7861-6 #### [facility] ([id number]) [address] [place] [address], [address] [place] [address] Parathyrin.intact [Mass/Vol] on 01-21-2024 PTH INTACT 44 pg/mL Normal 12-88 [facility] Comment on above: Performed By: #### T HYR, 2731-8 #### [facility] ([id number]) [address] [place] [address], [address] [place] [address] Surgical Pathologyon 024 Surgical Pathology Normal [facility] Comment on above: Result Comment: [facility] [address] [place] [address] Surgical Pathology Consultation Patient Name:KALLIE KEYES:1980 (Age: 43)Gender:FTaken:4Reported:4Physician(s):Betzaida Sierra MD ([phone])Copy To: Rec. #:[id number]: #[id number] Final Pathologic Diagnosis 1. Delphian lymph node, excision: Benign reactive lymph node. 2. Thyroid gland, total thyroidectomy: Grave's disease. Early lymphocytic thyroiditis. Benign follicular nodule, right lobe. Comment A CKAE1/AE3 immunostain was performed on the delphian lymph node and is negative, supportive of no metastatic carcinoma identified. An HBME immunostain is negative in the nodule of the right lobe, supportive of a benign follicular nodule. All controls are adequate. Report Electronically Signed Out [id number] Barreto MD Interpretation performed at [facility], [address] [place] [address], License number: [id number]. Clinical History Graves disease. Gross Description 1. Received in formalin labeled WALI, Delphian lymph node is an ovoid sheet of adipose tissue, 1.4 x 0.8 x 0.3 cm. Within the adipose tissue is a 0.3 cm lymph node candidate. The specimen is entirely submitted in a single cassette. (1, ns, [id number], m2) JG 2. Received in formalin labeled WALI, entire thyroid gland is an 12 g, total thyroidectomy specimen, oriented by the surgeon with a suture at the right superior pole with a detached portion of fibrofatty tissue, 1.2 x 0.6 x 0.2 cm. The right thyroid lobe is 8 g, 3.2 cm superior to inferior, 3.1 cm medial to lateral, and 1.8 cm anterior to posterior. The left thyroid lobe is 3 g, 2 cm superior to inferior, 2.3 cm medial to lateral, and 1.3 cm anterior to posterior. The isthmus is 1 g, 1.8 cm superior to inferior, 1 cm right to left, and 0.6 cm anterior to posterior. The capsular surface is patel-pink, smooth and glistening with focal adhesions on the posterior aspect. The anterior surface of the specimen is inked yellow with the posterior surface inked black. Serial sections reveal red-brown, glistening and uniform cut surfaces with a well-circumscribed, 0.3 cm gelatinous nodule noted in the central aspect of the left thyroid lobe. The nodule is situated 0.2 cm from the anterior surface, and 0.2 cm from the posterior surface. The specimen is entirely submitted. Cassettes: A???H Entirety of right thyroid lobe, progressing from superior to inferior I Entirety of trisected isthmus J???L Entirety of left thyroid lobe, progressing from superior to inferior (to include nodule in cassette K) M Entirety of detached fibrofatty tissue (13, ns, [id number], A???M, m2) JG g/01/22/2024WAK Specimen(s) Received 1: Delphian lymph node 2: Entire thyroid gland Fee Codes(s): 1; 11977, 12040 2; 55175, 03818 THYROID PROFILEon 01-21-2024 Free T4 [Mass/Vol] 1.30 ng/dL Normal 0.61-1.60 [facility] Comment on above: Performed By: #### T HYR, 2731-8 #### [facility] ([id number]) [address], [address] [place] [address] TSH 0.47 uIU/mL Low 0.49-4.67 [facility] Comment on above: Performed By: #### T HYR, 2731-8 #### [facility] ([id number]) [address], [address] [place] [address] HCG.beta subunit IA 3rd IS Q non 01-09-2024 SERUM B HCG,3RD I.S. <5 Normal [facility] Comment on above: Result Comment: NEW REFERENCE RANGE WEEKS (SINCE LMP) MIU/mL 3 WEEKS 5 - 50 4 WEEKS 5 - 426 5 WEEKS 18 - 7,340 6 WEEKS 1,080 - 56,500 7-8 WEEKS 7,650 - 229,000 9-12 WEEKS 25,700 - 288,000 13-16 WEEKS 13,300 - 254,000 17-24 WEEKS 4,060 - 165,400 25-40 WEEKS 3,640 - 117,000 MALES AND NON- FEMALES - <5 MIU/mL This test has been FDA approved for use in only. Elevated levels are not necessarily diagnostic for trophoblastic or nontrophoblastic neoplasms. Performed By: #### 2 0415-6, #### [facility] ([id number]) [address], [address] [place] [address] HGB AND HCTon 01-09-2024 Hematocrit (Bld) [Volume fraction] 37.8 % Normal 35-47 [facility] Comment on above: Performed By: #### 2 0415-6, HH #### [facility] ([id number]) [address], [address] [place] [address] Hemoglobin (Bld) [Mass/Vol] 12.9 g/dL Normal 11.7-15.5 [facility] Comment on above: Performed By: #### 2 0415-6, HH #### [facility] ([id number]) [address], [address] [place] [address] CT ABDOMEN/PELVIS WITHOUT CO NTRASTon 11-29-2023 CT ABDOMEN/PELVIS WITHOUT CONTRAST EXAM: CT ABDOMEN/PELVIS WITHOUT CONTRAST CLINICAL INDICATION: Left flank pain COMPARISON: CT abdomen/pelvis 08/02/2019 and 12/04/2020 TECHNIQUE: Axial CT of the abdomen, and pelvis was performed from the top of the hemidiaphragms to the inferior osseous pelvis without intravenous contrast. 2-D reformats were obtained. Automatic exposure control radiation dose reduction technology was utilized. FINDINGS: Evaluation is limited by lack of intravenous contrast. Visualized portion of the lung bases are unremarkable. The liver, spleen, kidneys, adrenal glands and pancreas are unremarkable. Gallbladder present. No abdominal aortic aneurysm. No enlarged lymph nodes, free fluid, or free air. Mild diffuse colonic stool burden. The bowel is without evidence of obstruction or adjacent inflammatory changes. Normal appendix. Bladder unremarkable. No suspicious osseous lesions. IMPRESSION: 1. No significant acute abnormality identified in the abdomen or pelvis, within the limits of unenhanced CT, as described above. 2. Mild diffuse colonic stool burden may reflect constipation. Normal [facility] CT Abdomen and Pelvis WO con traston 11-29-2023 IMPRESSION: 1. No significant acute abnormality identified in the abdomen or pelvis, within the limits of unenhanced CT, as described above. 2. Mild diffuse colonic stool burden may reflect constipation. RADIOLOGY EXAM: CT ABDOMEN/PEL VIS WITHOUT CONTRAST CLINICAL INDICATION: Left flank pain COMPARISON: CT abdomen/pelvis 08/02/2019 and 12/04/2020 TECHNIQUE: Axial CT of the abdomen, and pelvis was performed from the top of the hemidiaphragms to the inferior osseous pelvis without intravenous contrast. 2-D reformats were obtained. Automatic exposure control radiation dose reduction technology was utilized. FINDINGS: Evaluation is limited by lack of intravenous contrast. Visualized portion of the lung bases are unremarkable. The liver, spleen, kidneys, adrenal glands and pancreas are unremarkable. Gallbladder present. No abdominal aortic aneurysm. No enlarged lymph nodes, free fluid, or free air. Mild diffuse colonic stool burden. The bowel is without evidence of obstruction or adjacent inflammatory changes. Normal appendix. Bladder unremarkable. No suspicious osseous lesions. RADIOLOGY Yury Goodrich MD - 11/29/2023 EXAM: CT ABDOMEN/PELVIS WITHOUT CONTRAST CLINICAL INDICATION: Left flank pain COMPARISON: CT abdomen/pelvis 08/02/2019 and 12/04/2020 TECHNIQUE: Axial CT of the abdomen, and pelvis was performed from the top of the hemidiaphragms to the inferior osseous pelvis without intravenous contrast. 2-D reformats were obtained. Automatic exposure control radiation dose reduction technology was utilized. FINDINGS: Evaluation is limited by lack of intravenous contrast. Visualized portion of the lung bases are unremarkable. The liver, spleen, kidneys, adrenal glands and pancreas are unremarkable. Gallbladder present. No abdominal aortic aneurysm. No enlarged lymph nodes, free fluid, or free air. Mild diffuse colonic stool burden. The bowel is without evidence of obstruction or adjacent inflammatory changes. Normal appendix. Bladder unremarkable. No suspicious osseous lesions. IMPRESSION IMPRESSION: 1. No significant acute abnormality identified in the abdomen or pelvis, within the limits of unenhanced CT, as described above. 2. Mild diffuse colonic stool burden may reflect constipation. [employer] Radiology Study observation (narrative) [employer] CT Abdomen and Pelvis WO con trastOrdered By: Yury Goodrich on 11-29-2023 [employer] Work Phone: HCG ( test) Ql (U)o n 11-29-2023 [employer] HCG QUALITATIVE, URINEon HCG ( test) Ql (U) Negative [employer] No Panel Informationon 11-28 Interpretation and review of laboratory results Abnormal [facility] URINALYSIS, MACROon 11-29-19 24 Bilirubin Ql (U) Negative NEGATIVE [facility] Clarity (U) CLOUDY Abnormal CLEAR [facility] Color (U) YELLOW YELLOW [facility] Glucose Test strip (U) [Mass/Vol] Negative NEGATIVE mg/dl [facility] Hemoglobin Ql (U) LARGE Abnormal NEGATIVE [facility] Ketones (U) [Mass/Vol] TRACE Abnormal NEGATIVE mg/dl [facility] Leukocyte esterase Test strip Ql (U) Negative NEGATIVE [facility] Nitrite Ql (U) Negative NEGATIVE [facility] pH (U) 6.0 [pH] 5.0 - 7.0 [facility] Protein Ql (U) 30 mg/dl Abnormal NEGATIVE [facility] Specific gravity (U) [Rel density] >1.030 High 1.010 - 1.025 [facility] Urobilinogen (U) [Mass/Vol] 0.2 mg/dL [facility] URINE HCG QUALon 11-29-2023 Beta HCG ( test) Ql (U) Negative Normal [facility] URINE MACROSCOPICon 11-29-19 24 Bilirubin Ql (U) Negative Normal NEGATIVE [facility] Clarity (U) CLOUDY Abnormal CLEAR [facility] Color (U) YELLOW Normal YELLOW [facility] Glucose Ql (U) Negative Normal NEGATIVE [facility] pH (U) 6.0 [pH] Normal 5.0-7.0 [facility] Protein (U) [Mass/Vol] 30 mg/dL Abnormal NEGATIVE [facility] URINE HEMOGLOBIN LARGE Abnormal NEGATIVE [facility] URINE KETONE TRACE Abnormal NEGATIVE [facility] URINE LEUKOTEST Negative Normal NEGATIVE [facility] URINE NITRATES Negative Normal NEGATIVE [facility] URINE SPEC GRAVITY >1.030 High 1.010-1.025 [facility] Urobilinogen Qn (U) 0.2 {Levi'U}/dL Normal 0.2-1.0 [facility] URINE MICROSCOPICon 11-29-19 24 BACTERIA 2+ Abnormal NEGATIVE [facility] CASTS NONE Normal NONE [facility] CRYSTAL NONE Normal NONE [facility] Epithelial cells LM Ql (Urine sed) TOO NUMEROUS TO COUNT Normal [facility] Mucus Ql (Urine sed) 3+ Abnormal NEGATIVE [facility] URINE COMMENT POSSIBLY CONTAMINATE D SPECIMEN, CULTURE MUST BE ORDERED SEPARATELY IF DEEMED NECESSARY. Normal [facility] URINE RBC'S 10 TO 20 Normal NEGATIVE [facility] URINE WBC'S 1 TO 5 Normal NEGATIVE [facility] Bacteria LM.HPF (Urine sed) [#/Area] 2+ Abnormal NEGATIVE [facility] Casts LM.LPF (Urine sed) [#/Area] NONE NONE /LPF [facility] Crystals LM Nom (Urine sed) NONE NONE [facility] Epithelial cells LM Ql (Urine sed) TOO NUMEROUS TO COUNT /HPF [facility] Mucus Ql (Urine sed) 3+ Abnormal NEGATIVE [facility] RBC LM.HPF (Urine sed) [#/Area] 10 TO 20 NEGATIVE /HPF [facility] Urine sediment comments LM Dustin (Urine sed) POSSIBLY CONTAMINATED SPECIMEN, CULTURE MUST BE ORDERED SEPARATELY IF DEEMED NECESSARY. [facility] WBC LM.HPF (Urine sed) [#/Area] 1 TO 5 NEGATIVE /HPF [facility] 11-15-2023 Lysozyme-Alda 4.9 mcg/mL Normal 2.6 - 6.0 [facility] Comment on above: Result Comment: ADDITIONAL INFORMATION This test was developed and its performance characteristics determined by [facility] in a manner consistent with CLIA requirements. This test has not been cleared or approved by the U.S. Food and Drug Administration. Test Performed by: [place] [address] Field Cane Scaler Helper: Dustin Leonard M.D. Ph.D.; CLIA# [id number] Performed By: #### L ysozyme (Muramidase)-Alda #### [address] [address] [facility] 11-14-2023 FEDERICO-Alda 33 unit/L Normal 16 - 85 [facility] Comment on above: Result Comment: Test Performed by: [place] [id number] [employer] Helper: Dustin Leonard M.D. Ph.D.; CLIA# [id number] Performed By: #### A ngiotensin Converting Enzyme-Alda #### [facility] [address] [place] [address] ISHA Nsj-2-Mirzkc 11-14-2023 ISHA Cytoplasmic Pattern-Alda Not Reported Normal [facility] Comment on above: Performed By: #### A ngiotensin Converting Enzyme-Alda #### [facility] [address] [place] [address] ISHA Lab Comment-Alda Not Reported Normal [facility] Comment on above: Performed By: #### A ngiotensin Converting Enzyme-Alda #### [facility] [address] [place] [address] ISHA Pattern (2)-Alda Not Reported Normal [facility] Comment on above: Performed By: #### A ngiotensin Converting Enzyme-Alda #### [facility] [address] [place] [address] ISHA Pattern-Alda Not Reported Normal [facility] Comment on above: Performed By: #### A ngiotensin Converting Enzyme-Alda #### [facility] [address] [place] [address] ISHA Titer (2)-Alda Not Reported Normal [facility] Comment on above: Performed By: #### A ngiotensin Converting Enzyme-Alda #### [facility] [address] [place] [address] ISHA Titer-Alda Not Reported Normal [facility] Comment on above: Performed By: #### A ngiotensin Converting Enzyme-Alda #### [facility] [address] [place] [address] HEp-2 ISHA-Alda SEE BELOW Normal <1:80 (Negative) [facility] Comment on above: Result Comment: RESU LT: <1:80 (Negative) ADDITIONAL INFORMATION Method: Immunofluorescence using HEp-2 cellular substrate. Test Performed by: [facility] [address] [place] [address] [employer] Cane Scaler Helper: Dustin Leonard M.D. Ph.D.; CLIA# [id number] Performed By: #### A ngiotensin Converting Enzyme-Alda #### [address] [address] ANCA-Aldaon 11-14-2023 cANCA-Alda Negative Normal Negative [facility] Comment on above: Performed By: #### C ytoplasmic Neutrophilic Antibody-Alda #### [facility] [address] [place] [address] pANCA-Alda Negative Normal Negative [facility] Comment on above: Result Comment: Nega tive for cANCA and pANCA patterns by immunofluorescence. ADDITIONAL INFORMATION This test was developed and its performance characteristics determined by [facility] in a manner consistent with CLIA requirements. This test has not been cleared or approved by the U.S. Food and Drug Administration. Test Performed by: [facility] [address] [place] [address] Field Cane Scaler Helper: Dustin Leonard M.D. Ph.D.; CLIA# [id number] Performed By: #### C ytoplasmic Neutrophilic Antibody-Alda #### [address] [address] TB-QFTon 11-13-2023 Mitogen minus Nil 9.98 IU/mL Normal [facility] Comment on above: Performed By: #### C [id number] #### [place] [address] Nil Result 0.02 IU/mL Normal [facility] Comment on above: Performed By: #### C [id number] #### [place] [address] QuantiFERON-TB Gold Plus Negative Normal Negative [facility] Comment on above: Result Comment: No i nterferon-gamma response to M. tuberculosis antigens was detected. Latent infection with M. tuberculosis is unlikely. A single negative result does not exclude infection with M. tuberculosis. In patients at high risk for M.tuberculosis infection, a second test should be considered in accordance with the 2017 ATS/IDSA/ CDC Clinical Practice Guidelines for Diagnosis of Tuberculosis in Adults and Children [Sylvester PASTRANA et. al. Clin. Infect. Dis. 2017;64(2):111?115]. The reference range for the 'TB1 Ag minus Nil Result' and 'TB2 Ag minus Nil Result' is an Interferon-gamma level Performed By: #### C [id number] #### [address] [address] TB1 Ag minus Nil 0.04 IU/mL Normal [facility] Comment on above: Performed By: #### C [id number] #### [address] [address] TB2 Ag minus Nil 0.04 IU/mL Normal [facility] Comment on above: Performed By: #### C [id number] #### [address] [address] Trep Abon 11-13-2023 Treponema Total Ab <0.10 Normal [facility] Comment on above: Performed By: #### C [id number] #### [address] [address] Treponema Total Ab Interp Negative Normal Negative [facility] Comment on above: Result Comment: No s erologic evidence of syphilis. No follow- up necessary unless clinically indicated (eg, early syphilis). Performed By: #### C [id number] #### [address] [address] B12on 11-12-2023 Cobalamin (Vitamin B12) [Mass/Vol] 577 pg/mL Normal 180-914 [facility] Comment on above: Performed By: #### B 12 #### [address] [address] CRPon 11-12-2023 CRP 0.93 mg/dL High 0.00-0.75 [facility] Comment on above: Result Comment: CRP measurement is useful for assessment of non-specific INFLAMMATORY RESPONSE to infection or injury AND is a sensitive MARKER of ACUTE INFLAMMATION including CARDIAC RISK ASSESSMENT. CARDIAC patients with elevated CRP are POTENTIALLY at a HIGHER RISK OF FUTURE CARDIAC EVENTS. Performed By: #### C RP #### [facility] [address] [place] [address] ESRon 11-12-2023 Sed Rate 18 mm/hr Normal 0-23 [facility] Comment on above: Performed By: #### A ngiotensin Converting Enzyme-Alda #### [facility] [address] [place] [address] MRI Orbits w/ + w/o Contrast on 11-12-2023 MRI Orbits w/ + w/o Contrast EXAM: MRI Orbits w/ + w/o Contrast HISTORY: Unspecified ptosis of right eyelid R51.9 : Headache, unspecified COMPARISON: None. TECHNIQUE: Multiplanar, multisequence imaging of the orbits with and without contrast FINDINGS: The orbits appear within limits of normal. The optic chiasm is satisfactory. No intraorbital mass. No abnormal intraorbital enhancement. IMPRESSION: No intraorbital abnormality identified. Final Dictated by: Ángela Michaud DO Dictated DT/TM: 11/12/2023 1:31 pm Signed by: Ángela Michaud DO Signed (Electronic Signature): 11/12/2023 1:48 pm Transcribed DT/TM: 11/12/2023 1:40 (If Report Is Signed, Electronically Signed in Other Vendor System) Normal [facility] Rheumatoid Factor, Serumon 0 11-12-2023 Rheumatoid Factor,Serum <10.0 Normal 0.0-14.0 [facility] Comment on above: Performed By: #### C [id number] #### [facility] [address] [place] [address] Vitamin D 25-Hydroxy Totalon 11-12-2023 Vitamin D 25-Hydroxy Total 11 ng/mL Low 30-100 [facility] Comment on above: Result Comment: Jazz min D 25-Hydroxy Total Reference Range: Deficient: < 20 Insufficient: 20 to < 30 Sufficient: 30 - 100 Upper Safety Limit: > 100 Performed By: #### C [id number] #### [facility] [address] [place] [address] CBC with Auto Differentialon 09-18-2023 Basophils (Bld) [#/Vol] 0.04 10*3/uL [facility] Basophils/100 WBC (Bld) 1 % 0 - 2 % [facility] Eosinophils (Bld) [#/Vol] 0.19 10*3/uL [facility] Eosinophils/100 WBC (Bld) 3 % 1 - 4 % [facility] Erythrocyte distribution width (RBC) [Ratio] 14.9 % High 11.8 - 14.4 % [facility] Hematocrit (Bld) [Volume fraction] 34.6 % Low 36.3 - 47.1 % [facility] Hemoglobin (Bld) [Mass/Vol] 10.7 g/dL Low 11.9 - 15.1 g/dL [facility] Immature granulocytes (Bld) [#/Vol] [facility] Immature granulocytes/100 WBC (Bld) 0 % 0 [facility] Interpretation and review of laboratory results Abnormal [facility] Lymphocytes/100 WBC (Bld) 36 % 24 - 43 % [facility] Lymphocytes/100 WBC (Bld) 2.13 % [facility] MCH (RBC) [Entitic mass] 24.1 pg Low 25.2 - 33.5 pg [facility] MCHC (RBC) [Mass/Vol] 30.9 g/dL 28.4 - 34.8 g/dL [facility] MCV (RBC) [Entitic vol] 77.9 fL Low 82.6 - 102.9 fL [facility] Monocytes/100 WBC (Bld) 9 % 3 - 12 % [facility] Monocytes/100 WBC (Bld) 0.53 % [facility] Neutrophils/100 WBC (Bld) 51 % 36 - 65 % [facility] Nucleated RBC/100 WBC (Bld) [Ratio] 0.0 % 0.0 per 100 WBC [facility] Platelet mean volume (Bld) [Entitic vol] 10.0 fL 8.1 - 13.5 fL [facility] Platelets (Bld) [#/Vol] 313 10*3/uL [facility] RBC (Bld) [#/Vol] 4.44 10*6/uL 3.95 - 5.1 1 m/uL [facility] Segmented neutrophils/100 WBC (Bld) 3.05 % [facility] WBC other (Bld) [#/Vol] 6.0 [facility] Comprehensive Metabolic Pane rajesh 09-18-2023 Albumin [Mass/Vol] 4.0 g/dL 3.5 - 5.2 g/dL [facility] Albumin/Globulin [Mass ratio] 1.1 {ratio} 1.0 - 2.5 [facility] ALP [Catalytic activity/Vol] 99 U/L 35 - 104 U/L [facility] ALT [Catalytic activity/Vol] 17 U/L 5 - 33 U/L [facility] Anion gap [Moles/Vol] 12 mmol/L 9 - 17 mmol/L [facility] AST [Catalytic activity/Vol] 23 U/L NINF - 32 U/L [facility] Bilirubin [Mass/Vol] 0.3 mg/dL 0.3 - 1 .2 mg/dL [facility] Calcium [Mass/Vol] 8.9 mg/dL 8.6 - 10. 4 mg/dL [facility] Chloride [Moles/Vol] 103 mmol/L 98 - 10 7 mmol/L [facility] CO2 [Moles/Vol] 22 mmol/L 20 - 31 mmol/L [facility] Creatinine [Mass/Vol] 0.7 mg/dL 0.5 - 0.9 mg/dL [facility] GFR/1.73 sq M.predicted MDRD (S/P/Bld) [Vol rate/Area] - PINF [facility] Comment on above: These results are not intended for use in patients <18 years of age. eGFR results are calculated without a race factor using the 2020 CKD-EPI equation. Careful clinical correlation is recommended, particularly when comparing to results calculated using previous equations. The CKD-EPI equation is less accurate in patients with extremes of muscle mass, extra-renal metabolism of creatine, excessive creatine ingestion, or following therapy that affects renal tubular secretion. Glucose [Mass/Vol] 82 mg/dL 70 - 99 mg/dL [facility] Potassium [Moles/Vol] 3.8 mmol/L 3.7 - 5.3 mmol/L [facility] Protein [Mass/Vol] 7.5 g/dL 6.4 - 8.3 g/dL [facility] Sodium [Moles/Vol] 137 mmol/L 135 - 144 mmol/L [facility] Urea nitrogen [Mass/Vol] 11 mg/dL 6 - 20 mg/dL [facility] Urea nitrogen/Creatinine [Mass ratio] 16 mg/mg 9 - 20 [facility] [employer] Insulin, totalon 09-18-2023 Insulin 6.4 mU/L [facility] Insulin Reference Range: [facility] Comment on above: Fastin.6-24.9 30 min: 20-112 60 min: 29-88 90 min: 26-84 120 min: 22-79 Ironon 09-18-2023 Iron [Mass/Vol] 39 ug/dL 37 - 145 ug/dL [facility] Lipid Panelon 09-18-2023 Cholesterol [Mass/Vol] 184 mg/dL NINF - 200 mg/dL [facility] Comment on above: Cholesterol Guidelines: <200 Desirable 200-240 Borderline >240 Undesirable Cholesterol in HDL [Mass/Vol] 46 mg/dL 40 - PINF mg/dL [facility] [employer] Comment on above: HDL Guidelines: <40 Undesirable 40-59 Borderline >59 Desirable Cholesterol in LDL [Mass/Vol] 115 mg/dL 0 - 130 mg/dL [facility] Comment on above: LDL Guidelines: <100 Desirable 100-129 Near to/above Desirable 130-159 Borderline >159 Undesirable Direct (measured) LDL and calculated LDL are not interchangeable tests. Cholesterol.total/Cho lesterol in HDL [Mass ratio] 4.0 {ratio} NINF - 5 [facility] Triglyceride [Mass/Vol] 117 mg/dL NINF - 150 mg/dL [facility] Comment on above: Triglyceride Guidelines: <150 Desirable 150-199 Borderline 200-499 High >499 Very high Based on AHA Guidelines for fasting triglyceride, May 2012. No Panel Informationon 09-18 [facility] T3, Freeon 09-18-2023 Free T3 [Mass/Vol] 2.94 pg/mL 2.02 - 4. 43 pg/mL [facility] T4on 09-18-2023 T4 [Mass/Vol] 9.3 ug/dL 4.5 - 11.7 ug/dL [facility] TSHon 09-18-2023 TSH Qn 0.37 m[IU]/L [facility] BHCG,QUANTITATIVEon 11-21-19 [facility] [address].00 MIU/ML Normal [facility] Comment on above: Result Comment: [facility] INTERPRETIVE RANGES: NON FEMALE 0-6 MIU/ML MALE ADULT 0-2 MIU/ML 0-1 WEEK 6-50 MIU/ML 1-2 WEEKS 40-300 MIU/ML 2-3 WEEKS 100-1,000 MIU/ML 3-4 WEEKS 500-6,000 MIU/ML 1-2 MONTHS 5,000-200,000 MIU/ML 2-3 MONTHS 10,000-100,000 MIU/ML 2ND TRIMESTER 3,000-50,000 MIU/ML 3RD TRIMESTER 1,000-50,000 MIU/ML If an hCG level is inconsistent with, or unsupported by, clinical evidence, results should be confirmed by an alternate hCG method. This method may include the qualitative hCG testing of urine. Testing performed at [place] [address] Performed By: #### B HCG2, CMPF, ACBC #### [place] [address] CBCon 11-20-2022 ABSOLUTE BAS 0.0 10*3/uL Normal 0.0-0.2 [facility] ABSOLUTE EOS 0.0 10*3/uL Normal 0.0-0.7 [facility] ABSOLUTE NEUTROPHIL COUNT 10.2 10*3/uL High 1.4-6.5 [facility] Basophils/100 WBC (Bld) 0.1 % Normal 0.0-2.0 [facility] DTYPE AUTO DIFF Normal [facility] Eosinophils/100 WBC (Bld) 0.1 % Normal 0.0-11.0 [facility] Lymphocytes (Bld) [#/Vol] 0.8 10*3/uL Low 1.2-3.4 [facility] Lymphocytes/100 WBC (Bld) 7.5 % Low 20.0-55.0 [facility] Monocytes (Bld) [#/Vol] 0.2 10*3/uL Normal 0.0-0.7 [facility] Monocytes/100 WBC (Bld) 1.4 % Normal 0.0-10.0 [facility] Neutrophils/100 WBC (Bld) 90.9 % High 37.0-75.0 [facility] Erythrocyte distribution width (RBC) [Ratio] 15.9 % High 11.5-14.5 [facility] Hematocrit (Bld) [Volume fraction] 34.4 % Low 36.0-48.0 [facility] Hemoglobin (Bld) [Mass/Vol] 11.3 g/dL Low 12.0-16.0 [facility] MCH (RBC) [Entitic mass] 26.4 pg Normal 26.0-35.0 [facility] MCHC (RBC) [Mass/Vol] 32.9 g/dL Normal 27.0-37.0 [facility] MCV (RBC) [Entitic vol] 80.3 fL Normal 80.0-100.0 [facility] Platelet mean volume (Bld) [Entitic vol] 8.8 fL Normal 7.4-11.0 [facility] Platelets (Bld) [#/Vol] 234 10*3/uL Normal 130-400 [facility] RBC (Bld) [#/Vol] 4.29 10*6/uL Normal 4.0-5.4 [facility] WBC (Bld) [#/Vol] 11.2 10*3/uL High 3.6-11.0 [facility] ABSOLUTE BAS 0.1 10*3/uL Normal 0.0-0.2 [facility] Comment on above: Result Comment: Test ing performed at [place] [address] Performed By: #### B HCG2, CMPF, ACBC #### Testing performed at [address] [address] ABSOLUTE EOS 0.2 10*3/uL Normal 0.0-0.7 [facility] Comment on above: Performed By: #### B HCG2, CMPF, ACBC #### Testing performed at [place] [id number] ABSOLUTE NEUTROPHIL COUNT 6.4 10*3/uL Normal 1.4-6.5 [facility] Comment on above: Performed By: #### B HCG2, CMPF, ACBC #### Testing performed at [place] [id number] Basophils/100 WBC (Bld) 0.7 % Normal 0.0-2.0 [facility] Comment on above: Performed By: #### B HCG2, CMPF, ACBC #### Testing performed at [place] [id number] DTYPE AUTO DIFF Normal [facility] Comment on above: Performed By: #### B HCG2, CMPF, ACBC #### Testing performed at [address] [address] Eosinophils/100 WBC (Bld) 2.0 % Normal 0.0-11.0 [facility] Comment on above: Performed By: #### B HCG2, CMPF, ACBC #### Testing performed at [address] [address] Lymphocytes (Bld) [#/Vol] 2.6 10*3/uL Normal 1.2-3.4 [facility] Comment on above: Performed By: #### B HCG2, CMPF, ACBC #### Testing performed at [address] [address] Lymphocytes/100 WBC (Bld) 25.7 % Normal 20.0-55.0 [facility] Comment on above: Performed By: #### B HCG2, CMPF, ACBC #### [place] [address] Monocytes (Bld) [#/Vol] 0.8 10*3/uL High 0.0-0.7 [facility] Comment on above: Performed By: #### B HCG2, CMPF, ACBC #### [place] [address] Monocytes/100 WBC (Bld) 8.0 % Normal 0.0-10.0 [facility] Comment on above: Performed By: #### B HCG2, CMPF, ACBC #### [place] [address] Neutrophils/100 WBC (Bld) 63.6 % Normal 37.0-75.0 [facility] Comment on above: Performed By: #### B HCG2, CMPF, ACBC #### [place] [address] Erythrocyte distribution width (RBC) [Ratio] 16.1 % High 11.5-14.5 [facility] Comment on above: Performed By: #### B HCG2, CMPF, ACBC #### [place] [address] Hematocrit (Bld) [Volume fraction] 30.4 % Low 36.0-48.0 [facility] Comment on above: Performed By: #### B HCG2, CMPF, ACBC #### [place] [address] Hemoglobin (Bld) [Mass/Vol] 10.3 g/dL Low 12.0-16.0 [facility] Comment on above: Performed By: #### B HCG2, CMPF, ACBC #### [place] [address] MCH (RBC) [Entitic mass] 26.3 pg Normal 26.0-35.0 [facility] Comment on above: Performed By: #### B HCG2, CMPF, ACBC #### [place] [address] MCHC (RBC) [Mass/Vol] 34.0 g/dL Normal 27.0-37.0 [facility] Comment on above: Performed By: #### B HCG2, CMPF, ACBC #### [place] [address] MCV (RBC) [Entitic vol] 77.5 fL Low 80.0-100.0 [facility] Comment on above: Performed By: #### B HCG2, CMPF, ACBC #### [place] [address] Platelet mean volume (Bld) [Entitic vol] 8.1 fL Normal 7.4-11.0 [facility] Comment on above: Performed By: #### B HCG2, CMPF, ACBC #### [place] [address] Platelets (Bld) [#/Vol] 269 10*3/uL Normal 130-400 [facility] Comment on above: Performed By: #### B HCG2, CMPF, ACBC #### [place] [address] RBC (Bld) [#/Vol] 3.92 10*6/uL Low 4.0-5.4 [facility] Comment on above: Performed By: #### B HCG2, CMPF, ACBC #### [place] [address] WBC (Bld) [#/Vol] 10.1 10*3/uL Normal 3.6-11.0 [facility] Comment on above: Performed By: #### B HCG2, CMPF, ACBC #### [place] [address] CBC(NO DIFF)on 11-20-2022 Erythrocyte distribution width (RBC) [Ratio] 16.3 % High 11.5-14.5 [facility] Comment on above: Performed By: #### H EMOG #### [place] [address] Hematocrit (Bld) [Volume fraction] 25.2 % Low 36.0-48.0 [facility] Comment on above: Result Comment: OB P ATIENT Performed By: #### H EMOG #### [place] [address] Hemoglobin (Bld) [Mass/Vol] 8.4 g/dL Low 12.0-16.0 [facility] Comment on above: Result Comment: OB P ATIENT Performed By: #### H EMOG #### [place] [address] MCH (RBC) [Entitic mass] 25.9 pg Low 26.0-35.0 [facility] Comment on above: Performed By: #### H EMOG #### [place] [address] MCHC (RBC) [Mass/Vol] 33.4 g/dL Normal 27.0-37.0 [facility] Comment on above: Performed By: #### H EMOG #### [place] [address] MCV (RBC) [Entitic vol] 77.4 fL Low 80.0-100.0 [facility] Comment on above: Performed By: #### H EMOG #### [place] [address] Platelet mean volume (Bld) [Entitic vol] 8.2 fL Normal 7.4-11.0 [facility] Comment on above: Result Comment: Test ing performed at [place] [address] Performed By: #### H EMOG #### [place] [address] Platelets (Bld) [#/Vol] 236 10*3/uL Normal 130-400 [facility] Comment on above: Performed By: #### H EMOG #### Testing performed at [address] [place] [address] RBC (Bld) [#/Vol] 3.26 10*6/uL Low 4.0-5.4 [facility] Comment on above: Performed By: #### H JUNAID #### Testing performed at [facility] [address] [place] [address] WBC (Bld) [#/Vol] 9.6 10*3/uL Normal 3.6-11.0 [facility] Comment on above: Performed By: #### H JUNAID #### Testing performed at [address] [address] CBC, EDIF, PLATELETon 2022 ABSOLUTE BASOPHIL COUNT 0.1 10*3/uL 0.0 - 0.2 10*3/uL [facility] Comment on above: Testing performed at [place], [place] [address] Basophils/100 WBC (Bld) 0.7 % 0.0 - 2.0 % [facility] Differential cell count method Nom (Bld) AUTO DIFF % [facility] Eosinophils (Bld) [#/Vol] 0.2 10*3/uL 0.0 - 0.7 10*3/uL [facility] Eosinophils/100 WBC (Bld) 2.0 % 0.0 - 11.0 % [facility] Erythrocyte distribution width (RBC) [Ratio] 16.1 % High 11.5 - 14.5 % [facility] Hematocrit (Bld) [Volume fraction] 30.4 % Low 36.0 - 48.0 % [facility] Hemoglobin (Bld) [Mass/Vol] 10.3 g/dL Low [facility] Interpretation and review of laboratory results Abnormal [facility] Lymphocytes (Bld) [#/Vol] 2.6 10*3/uL 1.2 - 3.4 10*3/uL [facility] Lymphocytes/100 WBC (Bld) 25.7 % 20.0 - 55.0 % [facility] MCH (RBC) [Entitic mass] 26.3 pg 26.0 - 35.0 PG [facility] MCHC (RBC) [Mass/Vol] 34.0 g/dL [facility] MCV (RBC) [Entitic vol] 77.5 fL Low [facility] Monocytes (Bld) [#/Vol] 0.8 10*3/uL High 0.0 - 0.7 10*3/uL [facility] Monocytes/100 WBC (Bld) 8.0 % 0.0 - 10.0 % [facility] Neutrophils (Bld) [#/Vol] 6.4 10*3/uL 1.4 - 6.5 10*3/uL [facility] Neutrophils/100 WBC (Bld) 63.6 % 37.0 - 75.0 % [facility] Platelet mean volume (Bld) [Entitic vol] 8.1 fL [facility] Platelets (Bld) [#/Vol] 269 10*3/uL 130 - 400 10*3/uL [facility] RBC (Bld) [#/Vol] 3.92 10*6/uL Low 4.0 - 5.4 10*6/uL [facility] WBC (Bld) [#/Vol] 10.1 10*3/uL 3.6 - 11.0 10*3/uL [facility] CMP FASTINGon 11-20-2022 A:G RATIO 1.1 RATIO Low 1.3-2.2 [facility] Comment on above: Performed By: #### B HCG2, CMPF, ACBC #### [place] [address] ALBUMIN 3.7 G/dl Normal 3.5-5.0 [facility] Comment on above: Performed By: #### B HCG2, CMPF, ACBC #### [place] [address] ALP [Catalytic activity/Vol] 81 U/L Normal 38-126 [facility] Comment on above: Performed By: #### B HCG2, CMPF, ACBC #### [place] [address] ALT [Catalytic activity/Vol] 20 U/L Normal <35 [facility] Comment on above: Performed By: #### B HCG2, CMPF, ACBC #### [place] [address] AST [Catalytic activity/Vol] 22 U/L Normal 14-36 [facility] Comment on above: Performed By: #### B HCG2, CMPF, ACBC #### Testing performed at [place] [id number] Bilirubin [Mass/Vol] 0.2 mg/dL Normal 0.2-1.3 [facility] Comment on above: Performed By: #### B HCG2, CMPF, ACBC #### [place] [address] Calcium [Mass/Vol] 9.1 mg/dL Normal 8.4-10.2 [facility] Comment on above: Performed By: #### B HCG2, CMPF, ACBC #### [place] [address] Chloride [Moles/Vol] 105 mmol/L Normal 98-107 [facility] Comment on above: Result Comment: Darrius bryson note: Triglyceride levels of 600mg/dL or higher may positively bias chloride results by approximately 2.1 mmol Performed By: #### B HCG2, CMPF, ACBC #### [place] [address] CO2 [Moles/Vol] 21 mmol/L Low 22-30 [facility] Comment on above: Performed By: #### B HCG2, CMPF, ACBC #### [place] [address] Creatinine [Mass/Vol] 0.50 mg/dL Low 0.7-1.2 [facility] Comment on above: Performed By: #### B HCG2, CMPF, ACBC #### [place] [address] EST. GFR, 175 ml/min/1.73sq.m Normal [facility] Comment on above: Performed By: #### B HCG2, CMPF, ACBC #### [place] [address] EST. GFR,Non 145 ml/min/1.73sq.m Normal [facility] Comment on above: Performed By: #### B HCG2, CMPF, ACBC #### [place] [address] GFR Information Average GFR for 40-4 9 years old = 99. Normal [facility] Comment on above: Result Comment: Trust Operations Assistant denny Kidney disease, GFR = <60. Kidney failure, GFR = <15. The GFR estimate is not adjusted for extreme body surface area or acute process, nor has it been validated for women or ethnic groups other than and . Testing performed at [place] [address] Performed By: #### B HCG2, CMPF, ACBC #### [place] [address] Glucose [Mass/Vol] 129 mg/dL High 70-100 [facility] Comment on above: Result Comment: NORMAL <100 mg/dL PREDIABETES 101-126 mg/dL DIABETES 126 mg/dL or higher Performed By: #### B HCG2, CMPF, ACBC #### [place] [address] Potassium [Moles/Vol] 3.4 mmol/L Low 3.5-5.1 [facility] Comment on above: Performed By: #### B HCG2, CMPF, ACBC #### [place] [address] Protein [Mass/Vol] 7.1 g/dL Normal 6.3-8.2 [facility] Comment on above: Performed By: #### B HCG2, CMPF, ACBC #### [place] [address] Sodium [Moles/Vol] 136 mmol/L Low 137-145 [facility] Comment on above: Performed By: #### B HCG2, CMPF, ACBC #### [place] [address] Urea nitrogen [Mass/Vol] 7 mg/dL Normal 7-20 [facility] Comment on above: Performed By: #### B HCG2, CMPF, ACBC #### Testing performed at [address] [address] COMPREHENSIVE METABOLIC PANE Rajesh 11-20-2022 Albumin [Mass/Vol] 3.7 G/dl 3.5 - 5.0 G/dl [facility] Albumin/Globulin [Mass ratio] 1.1 {ratio} Low [facility] ALP [Catalytic activity/Vol] 81 U/L [facility] ALT [Catalytic activity/Vol] 20 U/L NINF [facility] AST [Catalytic activity/Vol] 22 U/L [facility] Bilirubin [Mass/Vol] 0.2 mg/dL [facility] Calcium [Mass/Vol] 9.1 mg/dL [facility] Chloride [Moles/Vol] 105 mmol/L [facility] Comment on above: Please note: Triglyc eride levels of 600mg/dL or higher may positively bias chloride results by approximately 2.1 mmol CO2 [Moles/Vol] 21 mmol/L Low [facility] Creatinine [Mass/Vol] 0.50 mg/dL Low [facility] GFR COMMENT Average GFR for 40-4 9 years old = 99. [facility] Comment on above: Chronic Kidney disea se, GFR = <60. Kidney failure, GFR = <15. The GFR estimate is not adjusted for extreme body surface area or acute process, nor has it been validated for women or ethnic groups other than and . Testing performed at [place], [place] [address] GFR/1.73 sq M.predicted among blacks MDRD (S/P/Bld) [Vol rate/Area] 175 mL/min/{1.73_m2} ml/min/1.73 sq.m [facility] GFR/1.73 sq M.predicted among non-blacks MDRD (S/P/Bld) [Vol rate/Area] 145 mL/min/{1.73_m2} ml/min/1.73 sq.m [facility] Glucose post fast [Mass/Vol] 129 mg/dL High [facility] Comment on above: NORMAL <100 mg/dL PREDIABETES 101-126 mg/dL DIABETES 126 mg/dL or higher Interpretation and review of laboratory results Abnormal [facility] Potassium [Moles/Vol] 3.4 mmol/L Low [facility] Protein [Mass/Vol] 7.1 g/dL [facility] Sodium [Moles/Vol] 136 mmol/L Low [facility] Urea nitrogen [Mass/Vol] 7 mg/dL [facility] Narrative [Interpretat ion] Study observation.general transvaginal 1st trimester USon 11-20-2022 IMPRESSION: Ultrasound study demonstrates findings suspect for retained products of conception within the distal uterine segment and the cervix. Short-term follow-up is recommended for further evaluation. Suggestion of mild retroversion of the uterus. RADIOLOGY EXAM: US OB TRANSVAGINAL/CERVICAL LENGTH HISTORY: Pelvic pain with bleeding rule out miscarriages COMPARISON: CT pelvis study dated 12/04/2020 TECHNIQUE: Ultrasound study of pelvis was performed with transvaginal imaging. Transabdominal images were obtained and included in this study. FINDINGS: Uterus measures approximately 14.7 x 7.2 x 7.6 cm in longitudinal, AP and transverse dimensions. Uterus is enlarged compatible with recent gravid state per given history. There appears be mild retroversion of the uterus. Central endometrial echo complex is not well seen on transvaginal imaging. Ill-defined areas of intermediate echogenicity are seen in the distal uterine segment and the cervical canal suspect for retained products of conception. No obvious defined fetus can be identified. Findings are seen related to recent spontaneous with retained products as described. Short-term follow-up is recommended for further evaluation. Right ovary measures 2.5 x 1.8 x 1.5 cm, left ovary measures 2.9 x 2.4 x 2.0 cm without obvious solid or cystic mass. RADIOLOGY Mirza Schneider MD - 11/20/2022 EXAM: US OB TRANSVAGINAL/CERVICAL LENGTH HISTORY: Pelvic pain with bleeding rule out miscarriages COMPARISON: CT pelvis study dated 12/04/2020 TECHNIQUE: Ultrasound study of pelvis was performed with transvaginal imaging. Transabdominal images were obtained and included in this study. FINDINGS: Uterus measures approximately 14.7 x 7.2 x 7.6 cm in longitudinal, AP and transverse dimensions. Uterus is enlarged compatible with recent gravid state per given history. There appears be mild retroversion of the uterus. Central endometrial echo complex is not well seen on transvaginal imaging. Ill-defined areas of intermediate echogenicity are seen in the distal uterine segment and the cervical canal suspect for retained products of conception. No obvious defined fetus can be identified. Findings are seen related to recent spontaneous with retained products as described. Short-term follow-up is recommended for further evaluation. Right ovary measures 2.5 x 1.8 x 1.5 cm, left ovary measures 2.9 x 2.4 x 2.0 cm without obvious solid or cystic mass. IMPRESSION IMPRESSION: Ultrasound study demonstrates findings suspect for retained products of conception within the distal uterine segment and the cervix. Short-term follow-up is recommended for further evaluation. Suggestion of mild retroversion of the uterus. [facility] (narrative) [facility] Narrative [Interpretat ion] Study observation.general transvaginal 1st trimester USOrdered By: Mirza Schneider on 11-20-2022 [facility] Work Phone: HCG ( test) [place] [address].00 m[IU]/mL MIU/ML [facility] Comment on above: [facility] INTERPRETIVE RANGES: NON FEMALE 0-6 MIU/ML MALE ADULT 0-2 MIU/ML 0-1 WEEK 6-50 MIU/ML 1-2 WEEKS 40-300 MIU/ML 2-3 WEEKS 100-1,000 MIU/ML 3-4 WEEKS 500-6,000 MIU/ML 1-2 MONTHS 5,000-200,000 MIU/ML 2-3 MONTHS 10,000-100,000 MIU/ML 2ND TRIMESTER 3,000-50,000 MIU/ML 3RD TRIMESTER 1,000-50,000 MIU/ML If an hCG level is inconsistent with, or unsupported by, clinical evidence, results should be confirmed by an alternate hCG method. This method may include the qualitative hCG testing of urine. Testing performed at [address] REPEAT ABO/RHon 11-20-2022 REPEAT ABO/RH ABO/RH(D) O POSITIVE Testing performed at [place] [address] Normal [facility] Comment on above: Performed By: #### R [facility] #### [place] [address] TYPE AND SCREEN CROSSMATCH C ONVERTIBLEon 11-20-2022 TYPE AND SCREEN CROSSMATCH CONVERTIBLE UNITS ORDERED 2 WORKUP EXPIRES 11/23/2022,2359 ABO/RH(D) O POSITIVE ANTIBODY SCREEN NEGATIVE ARM BAND NUMBER [id number] UNIT NUMBER [id number] BLOOD COMPONENT TYPE LRBC PART 1 UNIT DIVISION 00 STATUS OF UNIT TRANSFUSED TRANSFUSION STATUS OK TO TRANSFUSE CROSSMATCH RESULT COMPATIBLE UNIT NUMBER [id number] BLOOD COMPONENT TYPE LEUKORED RBC UNIT DIVISION 00 STATUS OF UNIT TRANSFUSED TRANSFUSION STATUS OK TO TRANSFUSE CROSSMATCH RESULT COMPATIBLE UNIT NUMBER [id number] BLOOD COMPONENT TYPE LEUKORED RBC UNIT DIVISION 00 STATUS OF UNIT REL FROM ALLOC TRANSFUSION STATUS OK TO TRANSFUSE CROSSMATCH RESULT Electronically Compatible Testing performed at [place] [address] UNIT NUMBER [id number] BLOOD COMPONENT TYPE LEUKORED RBC UNIT DIVISION 00 STATUS OF UNIT REL FROM ALLOC TRANSFUSION STATUS OK TO TRANSFUSE CROSSMATCH RESULT Electronically Compatible [facility] Comment on above: Performed By: #### T [facility] #### [place] [address] US OB TRANSVAGINAL/CERVICAL LENGTHon 11-20-2022 US OB TRANSVAGINAL/CERVICAL LENGTH EXAM: US OB TRANSVAGINAL/CERVICAL LENGTH HISTORY: Pelvic pain with bleeding rule out miscarriages COMPARISON: CT pelvis study dated 12/04/2020 TECHNIQUE: Ultrasound study of pelvis was performed with transvaginal imaging. Transabdominal images were obtained and included in this study. FINDINGS: Uterus measures approximately 14.7 x 7.2 x 7.6 cm in longitudinal, AP and transverse dimensions. Uterus is enlarged compatible with recent gravid state per given history. There appears be mild retroversion of the uterus. Central endometrial echo complex is not well seen on transvaginal imaging. Ill-defined areas of intermediate echogenicity are seen in the distal uterine segment and the cervical canal suspect for retained products of conception. No obvious defined fetus can be identified. Findings are seen related to recent spontaneous with retained products as described. Short-term follow-up is recommended for further evaluation. Right ovary measures 2.5 x 1.8 x 1.5 cm, left ovary measures 2.9 x 2.4 x 2.0 cm without obvious solid or cystic mass. IMPRESSION: Ultrasound study demonstrates findings suspect for retained products of conception within the distal uterine segment and the cervix. Short-term follow-up is recommended for further evaluation. Suggestion of mild retroversion of the uterus. Normal [facility] CBC with Auto Differentialon 11-03-2022 Absolute Eos # 0.24 [facility] SECOUR S [facility] Absolute Immature Granulocyte [facility] Absolute Lymph # 1.61 [facility] Absolute Hooker # 0.66 [facility] Basophils Absolute [facility] Basophils/100 WBC (Bld) 0 % 0 - 2 % [facility] Eosinophils/100 WBC (Bld) 3 % 1 - 4 % [facility] Hematocrit (Bld) [Volume fraction] 35.5 % Low 36.3 - 47.1 % [facility] Hemoglobin (Bld) [Mass/Vol] 11.3 g/dL Low 11.9 - 15.1 g/dL [facility] Immature granulocytes/100 WBC (Bld) 0 % 0 [facility] Interpretation and review of laboratory results Abnormal [facility] Lymphocytes/100 WBC (Bld) 21 % Low 24 - 43 % [facility] MCH (RBC) [Entitic mass] 25.7 pg 25.2 - 33.5 pg [facility] MCHC (RBC) [Mass/Vol] 31.8 g/dL 28.4 - 34.8 g/dL [facility] MCV (RBC) [Entitic vol] 80.7 fL Low 82.6 - 102.9 fL [facility] Monocytes/100 WBC (Bld) 9 % 3 - 12 % [facility] NRBC Automated 0.0 0.0 per 100 WBC [facility] Platelet distribution width (Bld) [Ratio] 15.9 % High 11.8 - 14.4 % [facility] Platelet mean volume (Bld) [Entitic vol] 10.4 fL 8.1 - 13.5 fL [facility] Platelets (Bld) [#/Vol] 299 10*3/uL [facility] RBC (Bld) [#/Vol] 4.40 10*6/uL 3.95 - 5.1 1 m/uL [facility] Segmented neutrophils/100 WBC (Bld) 67 % High 36 - 65 % [facility] Segs Absolute 5.01 [facility] WBC (Bld) [#/Vol] 7.6 10*3/uL [facility] Microscopic Urinalysison Bacteria, UA 1+ Abnormal None [facility] Epithelial Cells UA 2 TO 5 [facility] Interpretation and review of laboratory results Abnormal [facility] RBC clumps Auto (Urine sed) [#/Area] 50 TO 100 [facility] WBC, UA 2 TO 5 [facility] TYPE AND SCREENon 11-03-2022 ABO/Rh Positive [facility] Arm Band Number [id number] [facility] Expiration Date 11/06/2022,2359 [facility] Urinalysis with Reflex to Cu ltureon 11-03-2022 Bilirubin Urine Negative NEGATIVE [facility] Color, UA Yellow Yellow [facility] Glucose Auto test strip (U) [Mass/Vol] Negative NEGATIVE [facility] Interpretation and review of laboratory results Abnormal [facility] Ketones (U) [Mass/Vol] Negative NEGATIVE [facility] Leukocyte esterase Auto test strip Ql (U) SMALL Abnormal NEGATIVE [facility] Nitrite Auto test strip Ql (U) Negative NEGATIVE [facility] Protein (U) [Mass/Vol] 7.5 mg/dL 5.0 - 9.0 [facility] Protein (U) [Mass/Vol] 1+ Abnormal NEGATIVE [facility] Specific Bertha, UA 1.020 1.010 - 1.020 [facility] Turbidity UA SLIGHTLY CLOUDY Abnormal Clear [facility] Urine Hgb 3+ Abnormal NEGATIVE [facility] Urobilinogen, Urine Normal Normal [facility] S [facility] hCG, quantitative, on 11-03-2022 hCG Quant [id number] High NINF [facility] Comment on above: Non-preg premeno <=5 Postmeno <=8 Male <=3 If HCG results do not concur with clinical observations, additional testing to confirm results is recommended. Interpretation and review of laboratory results Abnormal [facility] CBC with Auto Differentialon 09-28-2022 Absolute Eos # 0.11 [facility] S [facility] Absolute Immature Granulocyte [facility] Absolute Lymph # 0.98 Low [facility] Absolute Hooker # 0.60 [facility] RS [facility] Basophils Absolute [facility] Basophils/100 WBC (Bld) 0 % 0 - 2 % [facility] Eosinophils/100 WBC (Bld) 2 % 1 - 4 % [facility] Hematocrit (Bld) [Volume fraction] 35.8 % Low 36.3 - 47.1 % [facility] Hemoglobin (Bld) [Mass/Vol] 11.4 g/dL Low 11.9 - 15.1 g/dL [facility] Immature granulocytes/100 WBC (Bld) 0 % 0 [facility] Interpretation and review of laboratory results Abnormal [facility] Lymphocytes/100 WBC (Bld) 20 % Low 24 - 43 % [facility] MCH (RBC) [Entitic mass] 25.2 pg 25.2 - 33.5 pg [facility] MCHC (RBC) [Mass/Vol] 31.8 g/dL 28.4 - 34.8 g/dL [facility] MCV (RBC) [Entitic vol] 79.0 fL Low 82.6 - 102.9 fL [facility] Monocytes/100 WBC (Bld) 12 % 3 - 12 % [facility] NRBC Automated 0.0 0.0 per 100 WBC [facility] Platelet distribution width (Bld) [Ratio] 15.9 % High 11.8 - 14.4 % [facility] Platelet mean volume (Bld) [Entitic vol] 10.1 fL 8.1 - 13.5 fL [facility] Platelets (Bld) [#/Vol] 312 10*3/uL [facility] RBC (Bld) [#/Vol] 4.53 10*6/uL 3.95 - 5.1 1 m/uL [facility] Segmented neutrophils/100 WBC (Bld) 66 % High 36 - 65 % [facility] Segs Absolute 3.13 [facility] WBC (Bld) [#/Vol] 4.9 10*3/uL [facility] Comprehensive Metabolic Pane rajesh 09-28-2022 Albumin [Mass/Vol] 3.7 g/dL 3.5 - 5.2 g/dL [facility] Albumin/Globulin [Mass ratio] 0.9 {ratio} Low 1.0 - 2.5 [facility] ALP [Catalytic activity/Vol] 135 U/L High 35 - 104 U/L [facility] ALT [Catalytic activity/Vol] 32 U/L 5 - 33 U/L [facility] Anion gap [Moles/Vol] 13 mmol/L 9 - 17 mmol/L [facility] AST [Catalytic activity/Vol] 28 U/L NINF - 32 U/L [facility] Bilirubin [Mass/Vol] 0.4 mg/dL 0.3 - 1 .2 mg/dL [facility] Calcium [Mass/Vol] 9.2 mg/dL 8.6 - 10. 4 mg/dL [facility] Chloride [Moles/Vol] 101 mmol/L 98 - 10 7 mmol/L [facility] CO2 [Moles/Vol] 24 mmol/L 20 - 31 mmol/L [facility] Creatinine [Mass/Vol] 0.63 mg/dL 0.50 - 0.90 mg/dL [facility] GFR/1.73 sq M.predicted MDRD (S/P/Bld) [Vol rate/Area] - PINF [facility] Comment on above: These results are not intended for use in patients <18 years of age. eGFR results are calculated without a race factor using the 2021 CKD-EPI equation. Careful clinical correlation is recommended, particularly when comparing to results calculated using previous equations. The CKD-EPI equation is less accurate in patients with extremes of muscle mass, extra-renal metabolism of creatine, excessive creatine ingestion, or following therapy that affects renal tubular secretion. Glucose [Mass/Vol] 92 mg/dL 70 - 99 mg/dL [facility] Interpretation and review of laboratory results Abnormal [facility] Potassium [Moles/Vol] 3.5 mmol/L Low 3.7 - 5.3 mmol/L [facility] Protein [Mass/Vol] 7.6 g/dL 6.4 - 8.3 g/dL [facility] Sodium [Moles/Vol] 138 mmol/L 135 - 144 mmol/L [facility] Urea nitrogen [Mass/Vol] 10 mg/dL 6 - 20 mg/dL [facility] Urea nitrogen/Creatinine (Bld) [Mass ratio] 16 9 - 20 [facility] HCG, Quantitative, on 09-28-2022 hCG Quant 406 High NINF [facility] Comment on above: Non-preg premeno <=5 Postmeno <=8 Male <=3 If HCG results do not concur with clinical observations, additional testing to confirm results is recommended. Interpretation and review of laboratory results Abnormal [facility] Insulin, totalon 09-28-2022 Insulin 11.6 mU/L [facility] Insulin Reference Range: [facility] Comment on above: Fastin.6-24.9 30 min: 20-112 60 min: 29-88 90 min: 26-84 120 min: 22-79 [facility] Ironon 09-28-2022 Interpretation and review of laboratory results Abnormal [facility] Iron [Mass/Vol] 27 ug/dL Low 37 - 145 ug/dL [facility] Lipid Panelon 09-28-2022 Cholesterol [Mass/Vol] 145 mg/dL NINF - 200 mg/dL [facility] Comment on above: Cholesterol Guidelines: <200 Desirable 200-240 Borderline >240 Undesirable Cholesterol in HDL [Mass/Vol] 25 mg/dL Low 40 - PINF mg/dL [facility] Comment on above: HDL Guidelines: <40 Undesirable 40-59 Borderline >59 Desirable Cholesterol in LDL [Mass/Vol] 99 mg/dL 0 - 130 mg/dL [facility] Comment on above: LDL Guidelines: <100 Desirable 100-129 Near to/above Desirable 130-159 Borderline >159 Undesirable Direct (measured) LDL and calculated LDL are not interchangeable tests. Cholesterol.total/Cho lesterol in HDL [Mass ratio] 5.8 {ratio} High NINF - 5 [facility] [employer] [facility] Interpretation and review of laboratory results Abnormal [facility] Triglyceride [Mass/Vol] 104 mg/dL NINF - 150 mg/dL [facility] Comment on above: Triglyceride Guidelines: <150 Desirable 150-199 Borderline 200-499 High >499 Very high Based on AHA Guidelines for fasting triglyceride, May 2012. [facility] TSHon 09-28-2022 Interpretation and review of laboratory results Abnormal [facility] TSH Qn Low [facility] Vitamin D 25 Hydroxyon 09-28 25-hydroxyvitamin D3 [Mass/Vol] 15.5 ng/mL Low 29.9 - PINF ng/mL [facility] Comment on above: Reference Range: Vitamin D status Range Deficiency <20 ng/mL Mild Deficiency 20-30 ng/mL Sufficiency 30-100 ng/mL Toxicity >100 ng/mL Interpretation and review of laboratory results Abnormal [facility] [employer] [facility] [employer] [facility] Covid-19 PCR (CVDTBH)on 07-07 SARS-CoV-2 (COVID-19) RNA KOREY+probe Ql (Unsp spec) Not detected Normal NOT DETECTED [facility] Comment on above: Result Comment: This test is not yet approved or cleared by the [place] FDA. When there are no FDA-approved or cleared tests available, and other criteria are met, FDA can make tests available under an emergency access mechanism called an Emergency Use Authorization (EUA). The EUA for this test is supported by the [place] of Health and Human Service's (HHS's) declaration that circumstances exist to justify the emergency use of in vitro diagnostics for the detection and/or diagnosis of the virus that causes COVID-19. This EUA will remain in effect (meaning this test can be used) for the duration of the COVID-19 declaration justifying emergency of IVDs, unless it is terminated or revoked by FDA (after which the test may no longer be used). When diagnostic testing is negative, the possibility of a false negative should be considered in the context of a patient's recent exposures and the presence of clinical signs and symptoms consistent with SARS-CoV-2. Performed By: #### C VDTBH #### [facility] [address] [place] [address] Dr. Saeid Snider GROUP A STREP CULTUREon 07-07 S. pyogenes Ag Ql (Unsp spec) Culture Observations: NEGATIVE FOR GROUP A STREPTOCOCCUS. Normal [facility] Comment on above: Performed By: #### G RASTCX, SSCRN #### [facility] [address] [place] [address] Dr. Saeid Snider INFLUENZA A AND B AGon 08-02 [facility] SEE BELOW Normal [facility] Comment on above: Result Comment: Nega tive for Flu A protein angiten. Infection due to Flu A cannot be ruled out. Flu A angiten in the sample may be below the detection limit of the test. Performed By: #### I NFLUAB #### [facility] [address] [place] [address] Dr. Saeid Snider INFLUBNEG SEE BELOW Normal [facility] Comment on above: Result Comment: Nega tive for Flu B protein antigen. Infection due to Flu B cannot be ruled out. Flu B antigen in the sample may be below the detection limit of the test. Performed By: #### I NFLUAB #### [facility] [address] [place] [address] Dr. Saeid Snider INFLUENZA A AG Negative Normal NEGATIVE SEE COMMENT [facility] Comment on above: Performed By: #### I NFLUAB #### [facility] [address] [place] [address] Dr. Saeid Snider INFLUENZA B AG Negative Normal NEGATIVE SEE COMMENT [facility] Comment on above: Performed By: #### I NFLUAB #### [facility] [address] [place] [address] Dr. Saeid Snider STREPT SCREENon 08-02-2022 STREP SCREEN A Negative Normal NEGATIVE [facility] Comment on above: Performed By: #### G RASTCX, SSCRN #### [facility] [address] [place], [place] [address] Dr. Saeid Snider XR CHEST 2 Von 08-02-2022 XR CHEST 2 V EXAM: XR CHEST 2 V HISTORY: SHORTNESS OF BREATH and cough for 3 days. COMPARISON: None. TECHNIQUE: Upright PA and lateral chest x-ray FINDINGS: The heart is not enlarged and the vasculature is not distended. No acute infiltrate, effusion or pneumothorax is identified. The osseous structures are grossly intact. IMPRESSION: No acute infiltrate or evidence of cardiac decompensation. Direct comparison with a previous study may be helpful in confirming the chronicity of these findings. Electronically authenticated by: KITTY JEWELL Date: 2022-08-02 14:55 Normal [facility] Chlamydia/GC,DNA Ampon 08-27 Chlamydia Probe Negative Normal NEG [facility] Comment on above: Result Comment: CHLA MYDIA TRACHOMATIS DNA not detected by nucleic acid amplification. This test is intended for medical purposes only and is not valid for the evaluation of suspected sexual abuse or for other forensic purposes. In certain contexts, culture may be required to meet applicable laws and regulations for diagnosis of C. trachomatis and N. gonorrhoeae infections. Per 2014 CDC recommendations, this test does not include confirmation of positive results by an alternative nucleic acid target. Performed By: #### S [facility] #### [facility] [employer] [address] [place] [address] Field Cane Scaler Helper: Prasanna Michaels MD Gonorrhea Probe Negative Normal NEG [facility] Comment on above: Result Comment: NEIS SERIA GONORRHOEAE DNA not detected by nucleic acid amplification. This test is intended for medical purposes only and is not valid for the evaluation of suspected sexual abuse or for other forensic purposes. In certain contexts, culture may be required to meet applicable laws and regulations for diagnosis of C. trachomatis and N. gonorrhoeae infections. Per 2014 CDC recommendations, this test does not include confirmation of positive results by an alternative nucleic acid target. Performed By: #### S WCGP #### [facility] [place] [address] Field Cane Scaler Helper: Prasanna Michaels MD CBC With Auto Differentialon 08-26-2020 Basophils (Bld) [#/Vol] 0.04 10*3/uL [place] Basophils/100 WBC (Bld) 1 % 0 - 2 % [place] Differential Type NOT REPORTED [place] Eosinophils (Bld) [#/Vol] 0.27 10*3/uL [place] Eosinophils/100 WBC (Bld) 4 % 1 - 4 % [place] Erythrocyte distribution width (RBC) [Ratio] 12.6 % 11.8 - 14.4 % [place] Hematocrit (Bld) [Volume fraction] 35.2 % Low 36.3 - 47.1 % [place] Hemoglobin (Bld) [Mass/Vol] 11.3 g/dL Low 11.9 - 15.1 g/dL [place] Immature granulocytes (Bld) [#/Vol] 0 % 0 [place] Immature granulocytes (Bld) [#/Vol] 10*3/uL [place] Interpretation and review of laboratory results Abnormal [place] Lymphocytes (Bld) [#/Vol] 2.34 10*3/uL [place] Lymphocytes/100 WBC (Bld) 37 % 24 - 43 % [place] MCH (RBC) [Entitic mass] 29.4 pg 25.2 - 33.5 pg [place] MCHC (RBC) [Mass/Vol] 32.1 g/dL 28.4 - 34.8 g/dL [place] MCV (RBC) [Entitic vol] 91.4 fL 82.6 - 102.9 fL [place] Monocytes (Bld) [#/Vol] 0.56 10*3/uL [place] Monocytes/100 WBC (Bld) 9 % 3 - 12 % [place] Platelet mean volume (Bld) [Entitic vol] 9.8 fL 8.1 - 13.5 fL [place] Platelets (Bld) [#/Vol] 282 10*3/uL [place] Platelets (Bld) [#/Vol] NOT REPORTED [place] RBC (Bld) [#/Vol] 3.85 10*6/uL Low 3.95 - 5.1 1 m/uL [place] RBC morphology finding Nom (Bld) NOT REPORTED [place] Segmented neutrophils/100 WBC (Bld) 49 % 36 - 65 % [place] Segs Absolute 3.12 [place] WBC (Bld) [#/Vol] 6.4 10*3/uL [place] WBC (Bld) [#/Vol] 0.0 10*3/uL 0.0 per 10 0 WBC [place] WBC Morphology NOT REPORTED [place] Basic Metab w/rfx MGon 08-25 (cont.) Normal [facility] Comment on above: Result Comment: Aver age GFR for 30-39 years old: 107 mL/min/1.73sq m Chronic Kidney Disease: <60 mL/min/1.73sq m Kidney failure: <15 mL/min/1.73sq m eGFR calculated using average adult body mass. Additional eGFR calculator available at: http://www.[employer]/multiple_crcl_2011.htm Performed By: #### C DP, HCG, BMPX #### [facility] [address] [place] [address] Field Cane Scaler Helper: Chandler Mccall MD Anion gap [Moles/Vol] 7 mmol/L Low 9-17 [facility] Comment on above: Performed By: #### C DP, HCG, BMPX #### [facility] [address] [place] [address] Field Cane Scaler Helper: Chandler Mccall MD BUN/CRE Ratio 11 Normal - [facility] Comment on above: Performed By: #### C DP, HCG, BMPX #### [facility] [address] [place], [place] [id number] [employer] Scaler Helper: Chandler Mccall MD Calcium [Mass/Vol] 9.8 mg/dL Normal 8.6-10.[address] [facility] Comment on above: Performed By: #### C DP, HCG, BMPX #### [facility] [address] [place], [place] [id number] [employer] Cane Scaler Helper: Chandler Mccall MD Chloride [Moles/Vol] 103 mmol/L Normal 98-107 [facility] Comment on above: Performed By: #### C DP, HCG, BMPX #### [facility] [address] [place], [place] [id number] [employer] Scaler Helper: Chandler Mccall MD CO2 [Moles/Vol] 27 mmol/L Normal 20-31 [facility] Comment on above: Performed By: #### C DP, HCG, BMPX #### [facility] [address] [place], [place] [id number] [employer] Cane Scaler Helper: Chandler Mccall MD Creatinine [Mass/Vol] 0.66 mg/dL Normal 0.50-0.90 [facility] Comment on above: Performed By: #### C DP, HCG, BMPX #### [facility] [address] [place], [place] [id number] [employer] Scaler Helper: Chandler Mccall MD GFR, Amer >60 Normal >60 [facility] Comment on above: Performed By: #### C DP, HCG, BMPX #### [facility] [address] [place], [place] [id number] [employer] Scaler Helper: Chandler Mccall MD GFR,non Amer >60 Normal >60 [facility] Comment on above: Performed By: #### C DP, HCG, BMPX #### [facility] [address] [place], [place] [id number] [employer] Scaler Helper: Chandler Mccall MD Glucose [Mass/Vol] 95 mg/dL Normal 70-[address] [facility] Comment on above: Performed By: #### C DP, HCG, BMPX #### [facility] [address] [place], [place] [phone] [employer] C[employer] Scaler Helper: Chandler Mccall MD Potassium [Moles/Vol] 3.9 mmol/L Normal 3.7-5.3 [facility] Comment on above: Performed By: #### C DP, HCG, BMPX #### [facility] [address] [place], [place] [phone] Field Cane Scaler Helper: Chandler Mccall MD Sodium [Moles/Vol] 137 mmol/L Normal 135-[address] [facility] Comment on above: Performed By: #### C DP, HCG, BMPX #### [facility] [address] [place], [place] [phone] Field Cane Scaler Helper: Chandler Mccall MD Urea nitrogen [Mass/Vol] 7 mg/dL Normal 6-[address] [facility] Comment on above: Performed By: #### C DP, HCG, BMPX #### [facility] [address] [place], [place] [id number] Field Cane Scaler Helper: Chandler Mccall MD Staging: NOT REPORTED Normal [facility] Comment on above: Performed By: #### C DP, HCG, BMPX #### [facility] [address] [place], [place] [phone] Field Cane Scaler Helper: Chandler Mccall MD Basic Metabolic Panel w/ Ref tommy to MGon 08-25-2020 Anion gap [Moles/Vol] 7 mmol/L Low 9 - 17 mmol/L [place] Bun/Cre Ratio 11 [place] Calcium [Mass/Vol] 9.8 mg/dL 8.6 - 10. 4 mg/dL [place] Chloride [Moles/Vol] 103 mmol/L 98 - 10 7 mmol/L [place] CO2 [Moles/Vol] 27 mmol/L 20 - 31 mmol/L [place] Creatinine [Mass/Vol] 0.66 mg/dL 0.5 - 0.9 mg/dL [place] GFR >60 >60 mL/min [place] GFR Non- >60 >60 mL/min [place] GFR/1.73 sq M predicted among non-blacks MDRD (S/P/Bld) [Vol rate/Area] NOT REPORTED [place] GFR/1.73 sq M predicted among non-blacks MDRD (S/P/Bld) [Vol rate/Area] [place] Comment on above: Average GFR for 30-3 9 years old: 107 mL/min/1.73sq m Chronic Kidney Disease: <60 mL/min/1.73sq m Kidney failure: <15 mL/min/1.73sq m eGFR calculated using average adult body mass. Additional eGFR calculator available at: http://www.[employer]/multiple_crcl_2011.htm Glucose [Mass/Vol] 95 mg/dL 70 - 99 mg/dL [place] Interpretation and review of laboratory results Abnormal [place] Potassium [Moles/Vol] 3.9 mmol/L 3.7 - 5.3 mmol/L [place] Sodium [Moles/Vol] 137 mmol/L 135 - 144 mmol/L [place] Urea nitrogen [Mass/Vol] 7 mg/dL 6 - 20 mg/dL [place] CBC Auto Differentialon 08-07 Basophils (Bld) [#/Vol] 0.10 10*3/uL [place] Basophils/100 WBC (Bld) 1 % 0 - 2 % [place] Differential Type YES [place] Eosinophils (Bld) [#/Vol] 0.20 10*3/uL [place] Eosinophils/100 WBC (Bld) 4 % 0 - 5 % [place] Erythrocyte distribution width (RBC) [Ratio] 12.7 % 12.1 - 15.2 % [place] Hematocrit (Bld) [Volume fraction] 33.8 % Low 36 - 46 % [place] Hemoglobin (Bld) [Mass/Vol] 11.5 g/dL Low 12 - 16 g/dL [place] Interpretation and review of laboratory results Abnormal [place] Lymphocytes (Bld) [#/Vol] 2.40 10*3/uL [place] Lymphocytes/100 WBC (Bld) 39 % 15 - 40 % [place] MCH (RBC) [Entitic mass] 29.6 pg 26 - 34 pg [place] MCHC (RBC) [Mass/Vol] 34.1 g/dL 31 - 3 7 g/dL [place] MCV (RBC) [Entitic vol] 86.8 fL 80 - 100 fL [place] Monocytes (Bld) [#/Vol] 0.50 10*3/uL [place] Monocytes/100 WBC (Bld) 8 % 4 - 8 % [place] Platelets (Bld) [#/Vol] 291 10*3/uL [place] RBC (Bld) [#/Vol] 3.90 10*6/uL Low 4 - 5.2 m/uL [place] Segmented neutrophils/100 WBC (Bld) 48 % 47 - 75 % [place] Segs Absolute 3.10 [place] WBC (Bld) [#/Vol] NOT REPORTED per 100 WBC [place] WBC (Bld) [#/Vol] 6.3 10*3/uL [place] CBC with Diffon 08-25-2020 Abs. Basophil 0.10 k/uL Normal 0.0-0.2 [facility] Comment on above: Performed By: #### C DP, HCG, BMPX #### [facility] [address] [place] [address] Field Cane Scaler Helper: Chandler Mccall MD Abs.Neutrophil (Seg) 3.10 k/uL Normal 2.5-7.0 [facility] Comment on above: Performed By: #### C DP, HCG, BMPX #### [facility] [address] [place], [place] [phone] [employer] Cane Scaler Helper: Chandler Mccall MD Auto Diff Performed YES Normal [facility] [facility] Comment on above: Performed By: #### C DP, HCG, BMPX #### [facility] [address] [id number] Field Cane Scaler Helper: Chandler Mccall MD Basophils/100 WBC (Bld) 1 % Normal 0-[address] [facility] Comment on above: Performed By: #### C DP, HCG, BMPX #### [facility] [address] [place] [address] Field Cane Scaler Helper: Chandler Mccall MD Eosinophils (Bld) [#/Vol] 0.20 10*3/uL Normal 0.0-0.[address] [facility] Comment on above: Performed By: #### C DP, HCG, BMPX #### [facility] [address] [place] [address] Field Cane Scaler Helper: Chandler Mccall MD Eosinophils/100 WBC (Bld) 4 % Normal 0-[address] [facility] Comment on above: Performed By: #### C DP, HCG, BMPX #### [facility] [address] [place] [address] Field Cane Scaler Helper: Chandler Mccall MD Erythrocyte distribution width (RBC) [Ratio] 12.7 % Normal 12.1-15.[address] [facility] Comment on above: Performed By: #### C DP, HCG, BMPX #### [facility] [address] [place], [place] [id number] Field Cane Scaler Helper: Chandler Mccall MD Hematocrit (Bld) [Volume fraction] 33.8 % Low 36-[address] [facility] Comment on above: Performed By: #### C DP, HCG, BMPX #### [facility] [address] [id number] Field Cane Scaler Helper: Chandler Mccall MD Hemoglobin (Bld) [Mass/Vol] 11.5 g/dL Low 12.0-16.[address] [facility] Comment on above: Performed By: #### C DP, HCG, BMPX #### [facility] [address] [place], [place] [phone] Field Cane Scaler Helper: Chandler Mccall MD Lymphocytes (Bld) [#/Vol] 2.40 10*3/uL Normal 1.0-4.[address] [facility] Comment on above: Performed By: #### C DP, HCG, BMPX #### [facility] [address] [place] [address] Field Cane Scaler Helper: Chandler Mccall MD Lymphocytes/100 WBC (Bld) 39 % Normal 15-[address] [facility] Comment on above: Performed By: #### C DP, HCG, BMPX #### [facility] [address] [place] [address] Field Cane Scaler Helper: Chandler Mccall MD MCH (RBC) [Entitic mass] 29.6 pg Normal 26-[address] [facility] Comment on above: Performed By: #### C DP, HCG, BMPX #### [facility] [address] [place] [address] Field Cane Scaler Helper: Chandler Mccall MD MCHC (RBC) [Mass/Vol] 34.1 g/dL Normal 31-37 [facility] Comment on above: Performed By: #### C DP, HCG, BMPX #### [facility] [address] [place] [address] Field Cane Scaler Helper: Chandler Mccall MD MCV (RBC) [Entitic vol] 86.8 fL Normal 80-[address] [facility] Comment on above: Performed By: #### C DP, HCG, BMPX #### [facility] [address] [place] [address] Field Cane Scaler Helper: Chandler Mccall MD Monocytes (Bld) [#/Vol] 0.50 10*3/uL Normal 0.0-1.[address] [facility] Comment on above: Performed By: #### C DP, HCG, BMPX #### [facility] [address] [place], [place] [phone] Field Cane Scaler Helper: Chandler Mccall MD Monocytes/100 WBC (Bld) 8 % Normal 4-[address] [facility] Comment on above: Performed By: #### C DP, HCG, BMPX #### [facility] [address] [place], [place] [phone] Field Cane Scaler Helper: Chandler Mccall MD Neutrophil (Seg) 48 % Normal 47-75 [facility] Comment on above: Performed By: #### C DP, HCG, BMPX #### [facility] [address] [place] [phone] Field Cane Scaler Helper: Chandler Mccall MD Platelets (Bld) [#/Vol] 291 10*3/uL Normal 140-[address] [facility] Comment on above: Performed By: #### C DP, HCG, BMPX #### [facility] [address] [place] [address] [phone] Field Cane Scaler Helper: Chandler Mccall MD RBC (Bld) [#/Vol] 3.90 10*6/uL Low 4.0-5.[address] [facility] Comment on above: Performed By: #### C DP, HCG, BMPX #### [facility] [address] [place] [phone] Field Cane Scaler Helper: Chandler Mccall MD WBC (Bld) [#/Vol] 6.3 10*3/uL Normal 3.5-11.[address] [facility] Comment on above: Performed By: #### C DP, HCG, BMPX #### [facility] [address] [place] [address] Field Cane Scaler Helper: Chandler Mccall MD Abs.Imm.Granulocyte NOT REPORTED Normal 0.00-0.30 [facility] Comment on above: Performed By: #### C DP, HCG, BMPX #### [facility] [address] [place] [address] Field Cane Scaler Helper: Chandler Mccall MD NRBC Automated NOT REPORTED Normal [facility] Comment on above: Performed By: #### C DP, HCG, BMPX #### [facility] [address] [place] [address] Field Cane Scaler Helper: Chandler Mccall MD Immature granulocytes (Bld) [#/Vol] NOT REPORTED Normal 0 [facility] [place], [place] Comment on above: Performed By: #### C DP, HCG, BMPX #### [facility] [address] [place] [address] Field Cane Scaler Helper: Chandler Mccall MD Platelet mean volume (Bld) [Entitic vol] NOT REPORTED Normal 6.0-12.0 [facility], [place] Comment on above: Performed By: #### C DP, HCG, BMPX #### [facility] [address] [place] [address] Field Cane Scaler Helper: Chandler Mccall MD Platelets (Bld) [#/Vol] NOT REPORTED Normal [facility] [place], [place] Comment on above: Performed By: #### C DP, HCG, BMPX #### [facility] [address] [place] [address] Field Cane Scaler Helper: Chandler Mccall MD RBC morphology finding Nom (Bld) NOT REPORTED Normal [facility] [place], [place] Comment on above: Performed By: #### C DP, HCG, BMPX #### [facility] [address] [place] [address] Field Cane Scaler Helper: Chandler Mccall MD WBC Morphology NOT REPORTED Normal [facility] [place], [place] Comment on above: Performed By: #### C DP, HCG, BMPX #### [facility] [address] [place] [address] Field Cane Scaler Helper: Chandler Mccall MD HCG Qualitative, Serumon hCG Qual Negative NEGATIVE [place], [place] Comment on above: Specimens with hCG l evels near the threshold of the test (25 mIU/mL) may give a negative or indeterminate result. In such cases, another test should be performed with a new specimen in 48-72 hours. If early is suspected clinically in this setting, correlation with quantitative serum b-hCG level is suggested. [facility] has confirmed the use of plasma for this test. This has not been cleared or approved by the U.S. Food and Drug Administration. The FDA has determined that such clearance is not necessary. HCG Screen, Bloodon 08-25-19 21 HCG Qn Negative Normal NEG [facility] Comment on above: Result Comment: Spec imens with hCG levels near the threshold of the test (25 mIU/mL) may give a negative or indeterminate result. In such cases, another test should be performed with a new specimen in 48-72 hours. If early is suspected clinically in this setting, correlation with quantitative serum b-hCG level is suggested. [facility] has confirmed the use of plasma for this test. This has not been cleared or approved by the U.S. Food and Drug Administration. The FDA has determined that such clearance is not necessary. Performed By: #### C DP, HCG, BMPX #### [facility] [address] [place] [address] Field Cane Scaler Helper: Chandler Mccall MD TSH without Reflexon 021 TSH Qn 1.51 m[IU]/L [place], [place] Thyroid Stim. Horm.on 2020 TSH Qn 1.51 m[IU]/L Normal 0.30-5.00 [facility] Comment on above: Performed By: #### T SH #### [facility] [address] [place] [address] Field Cane Scaler Helper: Chandler Mccall MD Trichomonas/Wet Prepon 08-25 Trichomonas/Wet Prep Specimen Descriptio n .VAGINA Special Requests NOT REPORTED Direct Exam NO WBC NO EPI NOTRICH NOBACTERIA NO CLUE CELLS NO YEAST Report Status FINAL 08/25/[address] [facility] Comment on above: Performed By: #### W P #### [facility] [address] [place] [address] Field Cane Scaler Helper: Chandler Mccall MD Wet Prep, Genitalon 08-25-19 21 Direct Exam NOTRICH [place] Direct Exam NO YEAST [place] Direct Exam NO EPI [place] Direct Exam NOBACTERIA [place] Direct Exam NO CLUE CELLS [place], [place] Special Requests NOT REPORTED [place], [place] Specimen Description .VAGINA [place], [place] WBC (Bld) [#/Vol] NO WBC [facility] [place] CT HEAD WITHOUT CONTRAST ([facility])on 05-11-2020 CT HEAD WITHOUT CONTRAST (STROKE) EXAMINATION: CT HEAD WITHOUT CONTRAST (STROKE) HISTORY: ORDERING SYSTEM PROVIDED HISTORY: Headache, TECHNOLOGIST PROVIDED HISTORY: Illness/Other Reason for exam: c/o frontal and occipital headache with photophobia acute since :9:30 pm. Encounter Type: Initial Additional signs and symptoms: shivering ORDERING SYSTEM PROVIDED DIAGNOSIS CODES: COMPARISON: None TECHNIQUE: CT examination of the head without IV contrast. Dose reduction techniques were achieved by using automated exposure control and/or adjustment of mA and/or kV according to patient size and/or use of iterative reconstruction technique. FINDINGS: The ventricles and sulci are normal in size and morphology. No acute intracranial hemorrhage is seen. No extra-axial mass or fluid collection is seen. No mass effect or midline shift is seen. No obvious evidence for loss of dickerson-white differentiation is seen on this examination The visualized paranasal sinuses appear well aerated. Bilateral mastoid air cells are clear. The calvarium appears intact. IMPRESSION: No evidence for acute intracranial hemorrhage or mass effect. No acute abnormality is seen on this noncontrast head CT. However, please note MRI is more sensitive for detection of acute/hyperacute stroke. Findings discussed with 10 minutes in the ED at 11:53 p.m.. Workstation ID: [id number] Dictated by: ELVIS CANTU on SunMay 10, 2020 11:56:58 PM EDT Transcribed by: ELVIS CANTU on SunMay 10, 2020 11:56:58 PM EDT Finalized by: ELVIS CANTU on SunMay 10, 2020 11:56:58 PM EDT [facility] Comment on above: Order Comment: Injur y/Trauma or Illness?:Illness/Other How long have you had these symptoms (acute/chronic)?:Acute Reason for exam?:c/o frontal and occipital headache with photophobia acute since :9:30 pm. Type of Exam?:Initial Additional signs and symptoms?:shivering CT KIDNEY STONEon 05-11-2020 CT KIDNEY STONE EXAMINATION: CT KIDNEY STONE HISTORY: ORDERING SYSTEM PROVIDED HISTORY: hematuria, TECHNOLOGIST PROVIDED HISTORY: Illness/Other Reason for exam: c/o frontal and occipital headache with photophobia acute since :9:30 pm. also c/o UTi symptoms... Encounter Type: Initial Additional signs and symptoms: abn labs. gross hematuria ORDERING SYSTEM PROVIDED DIAGNOSIS CODES: COMPARISON: CT kidney stone dated 10/21/2019 TECHNIQUE: Dose reduction techniques were achieved by using automated exposure control and/or adjustment of mA and/or kV according to patient size and/or use of iterative reconstruction technique. Multiple axial images of the abdomen and pelvis were obtained without the use of IV contrast material. Coronal and sagittal reformatted sequences are submitted for review. FINDINGS: The lung bases are clear. The heart size is normal. The liver, gallbladder, spleen, pancreas and adrenal glands appear unremarkable on this non IV contrast examination. Bilateral kidneys have an unremarkable noncontrast appearance. There is no evidence for hydronephrosis or nephrolithiasis bilaterally. No ureteral calculus is seen bilaterally. Mild diffuse wall thickening of the urinary bladder is seen, suggestive of inflammatory process/cystitis. Please correlate clinically. The stomach and duodenum appear unremarkable. Nonobstructive bowel pattern is seen. Normal appearing appendix is visualized. No significant bowel wall thickening is seen. No significant free fluid or abnormal fluid collections are seen in the abdomen and pelvis. Intrauterine device is seen in place. The vascular structures demonstrate normal caliber. The abdominal wall and visualized soft tissues appear unremarkable. The osseous structures appear unremarkable. IMPRESSION: Mild diffuse wall thickening of the urinary bladder is seen, suggestive of inflammatory process/cystitis. Please correlate clinically. No evidence for hydronephrosis or nephroureterolithiasis bilaterally. Normal appearing appendix is visualized. Intrauterine device in place. Workstation ID: [id number] Dictated by: ELVIS CANTU on SunMay 11, 2020 12:01:24 AM EDT Transcribed by: ELVIS CANTU on SunMay 11, 2020 12:01:24 AM EDT Finalized by: ELVIS CANTU on SunMay 11, 2020 12:01:24 AM EDT [facility] Comment on above: Order Comment: Injur y/Trauma or Illness?:Illness/Other How long have you had these symptoms (acute/chronic)?:Acute Reason for exam?:c/o frontal and occipital headache with photophobia acute since :9:30 pm. also c/o UTi symptoms... Type of Exam?:Initial Additional signs and symptoms?:abn labs. gross hematuria Mild diffuse wall thickening of the urinary bladder is seen, suggestive of inflammatory process/cystitis. Please correlate clinically. No evidence for hydronephrosis or nephroureterolithiasis bilaterally. Normal appearing appendix is visualized. Intrauterine device in place. Workstation ID: [id number] [facility] In ji Speechq - 05/11/2020 12:04 AM EDT EXAMINATION: CT KIDNEY STONE HISTORY: ORDERING SYSTEM PROVIDED HISTORY: hematuria, TECHNOLOGIST PROVIDED HISTORY: Illness/Other Reason for exam: c/o frontal and occipital headache with photophobia acute since :9:30 pm. also c/o UTi symptoms... Encounter Type: Initial Additional signs and symptoms: abn labs. gross hematuria ORDERING SYSTEM PROVIDED DIAGNOSIS CODES: COMPARISON: CT kidney stone dated 10/21/2019 TECHNIQUE: Dose reduction techniques were achieved by using automated exposure control and/or adjustment of mA and/or kV according to patient size and/or use of iterative reconstruction technique. Multiple axial images of the abdomen and pelvis were obtained without the use of IV contrast material. Coronal and sagittal reformatted sequences are submitted for review. FINDINGS: The lung bases are clear. The heart size is normal. The liver, gallbladder, spleen, pancreas and adrenal glands appear unremarkable on this non IV contrast examination. Bilateral kidneys have an unremarkable noncontrast appearance. There is no evidence for hydronephrosis or nephrolithiasis bilaterally. No ureteral calculus is seen bilaterally. Mild diffuse wall thickening of the urinary bladder is seen, suggestive of inflammatory process/cystitis. Please correlate clinically. The stomach and duodenum appear unremarkable. Nonobstructive bowel pattern is seen. Normal appearing appendix is visualized. No significant bowel wall thickening is seen. No significant free fluid or abnormal fluid collections are seen in the abdomen and pelvis. Intrauterine device is seen in place. The vascular structures demonstrate normal caliber. The abdominal wall and visualized soft tissues appear unremarkable. The osseous structures appear unremarkable. IMPRESSION: Mild diffuse wall thickening of the urinary bladder is seen, suggestive of inflammatory process/cystitis. Please correlate clinically. No evidence for hydronephrosis or nephroureterolithiasis bilaterally. Normal appearing appendix is visualized. Intrauterine device in place. Workstation ID: [id number] [facility] EXAMINATION: CT KIDN EY STONE HISTORY: ORDERING SYSTEM PROVIDED HISTORY: hematuria, TECHNOLOGIST PROVIDED HISTORY: Illness/Other Reason for exam: c/o frontal and occipital headache with photophobia acute since :9:30 pm. also c/o UTi symptoms... Encounter Type: Initial Additional signs and symptoms: abn labs. gross hematuria ORDERING SYSTEM PROVIDED DIAGNOSIS CODES: COMPARISON: CT kidney stone dated 10/21/2019 TECHNIQUE: Dose reduction techniques were achieved by using automated exposure control and/or adjustment of mA and/or kV according to patient size and/or use of iterative reconstruction technique. Multiple axial images of the abdomen and pelvis were obtained without the use of IV contrast material. Coronal and sagittal reformatted sequences are submitted for review. FINDINGS: The lung bases are clear. The heart size is normal. The liver, gallbladder, spleen, pancreas and adrenal glands appear unremarkable on this non IV contrast examination. Bilateral kidneys have an unremarkable noncontrast appearance. There is no evidence for hydronephrosis or nephrolithiasis bilaterally. No ureteral calculus is seen bilaterally. Mild diffuse wall thickening of the urinary bladder is seen, suggestive of inflammatory process/cystitis. Please correlate clinically. The stomach and duodenum appear unremarkable. Nonobstructive bowel pattern is seen. Normal appearing appendix is visualized. No significant bowel wall thickening is seen. No significant free fluid or abnormal fluid collections are seen in the abdomen and pelvis. Intrauterine device is seen in place. The vascular structures demonstrate normal caliber. The abdominal wall and visualized soft tissues appear unremarkable. The osseous structures appear unremarkable. [facility] CT HEAD WITHOUT CONTRAST ([facility])on 05-10-2020 EXAMINATION: CT HEAD WITHOUT CONTRAST (STROKE) HISTORY: ORDERING SYSTEM PROVIDED HISTORY: Headache, TECHNOLOGIST PROVIDED HISTORY: Illness/Other Reason for exam: c/o frontal and occipital headache with photophobia acute since :9:30 pm. Encounter Type: Initial Additional signs and symptoms: shivering ORDERING SYSTEM PROVIDED DIAGNOSIS CODES: COMPARISON: None TECHNIQUE: CT examination of the head without IV contrast. Dose reduction techniques were achieved by using automated exposure control and/or adjustment of mA and/or kV according to patient size and/or use of iterative reconstruction technique. FINDINGS: The ventricles and sulci are normal in size and morphology. No acute intracranial hemorrhage is seen. No extra-axial mass or fluid collection is seen. No mass effect or midline shift is seen. No obvious evidence for loss of dickerson-white differentiation is seen on this examination The visualized paranasal sinuses appear well aerated. Bilateral mastoid air cells are clear. The calvarium appears intact. [facility] No evidence for acut e intracranial hemorrhage or mass effect. No acute abnormality is seen on this noncontrast head CT. However, please note MRI is more sensitive for detection of acute/hyperacute stroke. Findings discussed with 10 minutes in the ED at 11:53 p.m.. Workstation ID: [id number] [facility] Interface, Rad In Fu ji Speechq - 05/10/2020 11:59 PM EDT EXAMINATION: CT HEAD WITHOUT CONTRAST (STROKE) HISTORY: ORDERING SYSTEM PROVIDED HISTORY: Headache, TECHNOLOGIST PROVIDED HISTORY: Illness/Other Reason for exam: c/o frontal and occipital headache with photophobia acute since :9:30 pm. Encounter Type: Initial Additional signs and symptoms: shivering ORDERING SYSTEM PROVIDED DIAGNOSIS CODES: COMPARISON: None TECHNIQUE: CT examination of the head without IV contrast. Dose reduction techniques were achieved by using automated exposure control and/or adjustment of mA and/or kV according to patient size and/or use of iterative reconstruction technique. FINDINGS: The ventricles and sulci are normal in size and morphology. No acute intracranial hemorrhage is seen. No extra-axial mass or fluid collection is seen. No mass effect or midline shift is seen. No obvious evidence for loss of dickerson-white differentiation is seen on this examination The visualized paranasal sinuses appear well aerated. Bilateral mastoid air cells are clear. The calvarium appears intact. IMPRESSION: No evidence for acute intracranial hemorrhage or mass effect. No acute abnormality is seen on this noncontrast head CT. However, please note MRI is more sensitive for detection of acute/hyperacute stroke. Findings discussed with 10 minutes in the ED at 11:53 p.m.. Workstation ID: [id number] [facility] POC Basic Metabolic Panelon 05-10-2020 Calcium.ionized (Bld) [Mass/Vol] 4.7 mg/dL 4.5 - 5.3 mg/dL [facility] Chloride [Moles/Vol] 103 mmol/L 98 - 10 8 mmol/L [facility] CO2 [Moles/Vol] 25 mmol/L 21 - 32 mmol/L [facility] Creatinine [Mass/Vol] 0.67 mg/dL 0.40 - 1.10 [facility] GFR/1.73 sq M.predicted MDRD (S/P/Bld) [Vol rate/Area] 111 mL/min/{1.73_m2} >=60 mL/min/1.73 m2 [facility] Glucose [Mass/Vol] 139 mg/dL High 65 - 99 mg/dL [facility] Interpretation and review of laboratory results Abnormal [facility] Potassium [Moles/Vol] 3.1 mmol/L Low 3.5 - 5.1 mmol/L [facility] Sodium [Moles/Vol] 142 mmol/L 135 - 145 mmol/L [facility] Urea nitrogen [Mass/Vol] 10 mg/dL 8 - 25 mg/dL [facility] POC CBC and Differentialon 1 Erythrocyte distribution width (RBC) [Entitic vol] 12.9 % 11.6 - 14.8 % [facility] Hematocrit (Bld) [Volume fraction] 39.8 % 36 - 46 % [facility] Hemoglobin (Bld) [Mass/Vol] 13.7 g/dL 12 - 16 g/dL [facility] Interpretation and review of laboratory results Abnormal [facility] Lymphocytes (Bld) [#/Vol] 2.2 10*3/uL [facility] Lymphocytes/100 WBC (Bld) 15.2 % [facility] MCH (RBC) [Entitic mass] 29.8 pg 26 - 34 pg [facility] MCHC (RBC) [Mass/Vol] 34.4 g/dL 31 - 3 7 g/dL [facility] MCV (RBC) [Entitic vol] 86.7 fL 80 - 100 fL [facility] Mixed 1.5 % [facility] Mixed Abs 0.2 K/mcl [facility] Neutrophil Abs 12.1 High [facility] Neutrophils/100 WBC (Bld) 83.3 % [facility] Platelet mean volume (Bld) [Entitic vol] 11.2 fL 9.4 - 12.4 fL [facility] Platelets (Bld) [#/Vol] 308 10*3/uL [facility] RBC (Bld) [#/Vol] 4.59 10*6/uL [facility] WBC (Bld) [#/Vol] 14.50 10*3/uL High [facility] POC , Urineon 05-10 Beta HCG ( test) Ql (U) Dilute urine specimens, as indicated by a low specific gravity (<1.010) may not contain sales and marketing representative levels of hCG. If is still suspected, a serum test or repeat urine test using a first morning urine specimen should be considered. [facility] HCG ( test) Ql (U) Negative Negative [facility] Interpretation and review of laboratory results Normal [facility] POC Urinalysis Dipstick, Aut oon 05-10-2020 Bilirubin Ql (U) Negative Negative [facility] Glucose Ql (U) Negative Negative mg/dL [facility] Hemoglobin Ql (U) Large Abnormal Negative [facility] Interpretation and review of laboratory results Abnormal [facility] Ketones Ql (U) Negative Negative mg/dL [facility] Leukocyte esterase Test strip Ql (U) Moderate Abnormal Negative [facility] Nitrite Ql (U) Negative Negative [facility] pH (U) 5.0 [pH] [facility] Protein Ql (U) 100 Abnormal Negative mg/dL [facility] Specific gravity (U) [Rel density] >=1.030 High [facility] Urobilinogen Qn (U) 0.2 mg/dL <2.0 [facility] Cult,Urineon 04-27-2020 Cult,Urine Specimen Description .Random Urine Special Requests NOT REPORTED Culture NO GROWTH Report Status FINAL 04/27/2020 [facility] Comment on above: Performed By: #### U RC #### [facility] [employer] [address] [place] [address] Field Cane Scaler Helper: Prasanna Michaels MD [facility] [address] [place] [address] Field Cane Scaler Helper: Florentino Galvan MD Basic Metab w/rfx MGon 04-25 (cont.) [facility] Comment on above: Result Comment: Aver age GFR for 30-39 years old: 107 mL/min/1.73sq m Chronic Kidney Disease: <60 mL/min/1.73sq m Kidney failure: <15 mL/min/1.73sq m eGFR calculated using average adult body mass. Additional eGFR calculator available at: http://www.[employer]/multiple_crcl_2012.htm Performed By: #### T SH #### [facility] [address], [place] [id number] Field Cane Scaler Helper: Chandler Mccall MD Anion gap [Moles/Vol] 10 mmol/L Normal 9-17 [facility] Comment on above: Performed By: #### T SH #### [facility] [address], [place] [phone] Field Cane Scaler Helper: Chandler Mccall MD BUN/CRE Ratio 17 Normal 9-20 [facility] Comment on above: Performed By: #### T SH #### [facility] [address], [place] [phone] Field Cane Scaler Helper: Chandler Mccall MD Calcium [Mass/Vol] 9.2 mg/dL Normal 8.6-10.[address] [facility] Comment on above: Performed By: #### T SH #### [facility] [address] [place] [address] Field Cane Scaler Helper: Chandler Mccall MD Chloride [Moles/Vol] 103 mmol/L Normal 98-107 [facility] Comment on above: Performed By: #### T SH #### [facility] [address] [place] [address] Field Cane Scaler Helper: Chandler Mccall MD CO2 [Moles/Vol] 25 mmol/L Normal 20-31 [facility] Comment on above: Performed By: #### T SH #### [facility] [address], [place] [phone] Field Cane Scaler Helper: Chandler Mccall MD Creatinine [Mass/Vol] 0.70 mg/dL Normal 0.50-0.90 [facility] Comment on above: Performed By: #### T SH #### [facility] [address] [place] [address] Field Cane Scaler Helper: Chandler Mccall MD GFR, Amer >60 Normal >60 [facility] Comment on above: Performed By: #### T SH #### [facility] [address], [place] [phone] Field Cane Scaler Helper: Chandler Mccall MD GFR,non Amer >60 Normal >60 [facility] Comment on above: Performed By: #### T SH #### [facility] [address], [place] [phone] Field Cane Scaler Helper: Chandler Mccall MD Glucose [Mass/Vol] 128 mg/dL High 70-[address] [facility] Comment on above: Performed By: #### T SH #### [facility] [address] [place] [address] Field Cane Scaler Helper: Chandler Mccall MD Potassium [Moles/Vol] 3.9 mmol/L Normal 3.7-5.3 [facility] Comment on above: Performed By: #### T SH #### [facility] [address] [place] [address] Field Cane Scaler Helper: Chandler Mccall MD Sodium [Moles/Vol] 138 mmol/L Normal 135-[address] [facility] Comment on above: Performed By: #### T SH #### [facility] [address], [place] [phone] Field Cane Scaler Helper: Chandler Mccall MD Urea nitrogen [Mass/Vol] 12 mg/dL Normal 6-[address] [facility] Comment on above: Performed By: #### T SH #### [facility] [address], [place] [phone] Field Cane Scaler Helper: Chandler Mccall MD Staging: NOT REPORTED Normal [facility] Comment on above: Performed By: #### T #### [facility] [address] [place] [address] Field Cane Scaler Helper: Chandler Mccall MD Basic Metabolic Panel w/ Ref tommy to MGon 04-25-2020 Anion gap [Moles/Vol] 10 mmol/L 9 - 17 mmol/L [place] Bun/Cre Ratio 17 [place] Calcium [Mass/Vol] 9.2 mg/dL 8.6 - 10. 4 mg/dL [place] Chloride [Moles/Vol] 103 mmol/L 98 - 10 7 mmol/L [place] CO2 [Moles/Vol] 25 mmol/L 20 - 31 mmol/L [place] Creatinine [Mass/Vol] 0.7 mg/dL 0.5 - 0.9 mg/dL [place] GFR >60 >60 mL/min [place] GFR Non- >60 >60 mL/min [place] GFR/1.73 sq M predicted among non-blacks MDRD (S/P/Bld) [Vol rate/Area] [place] Comment on above: Average GFR for 30-3 9 years old: 107 mL/min/1.73sq m Chronic Kidney Disease: <60 mL/min/1.73sq m Kidney failure: <15 mL/min/1.73sq m eGFR calculated using average adult body mass. Additional eGFR calculator available at: http://www.wufoo.[employer]/multiple_crcl_2012.htm GFR/1.73 sq M predicted among non-blacks MDRD (S/P/Bld) [Vol rate/Area] NOT REPORTED [place] Glucose [Mass/Vol] 128 mg/dL High 70 - 99 mg/dL [place] Interpretation and review of laboratory results Abnormal [place] Potassium [Moles/Vol] 3.9 mmol/L 3.7 - 5.3 mmol/L [place] Sodium [Moles/Vol] 138 mmol/L 135 - 144 mmol/L [place] Urea nitrogen [Mass/Vol] 12 mg/dL 6 - 20 mg/dL [place] CBC Auto Differentialon 04-07 0-2020 Basophils (Bld) [#/Vol] 0.00 10*3/uL [place] Basophils/100 WBC (Bld) 1 % 0 - 2 % [place] Differential Type YES [facility] [place] Eosinophils (Bld) [#/Vol] 0.40 10*3/uL [place] Eosinophils/100 WBC (Bld) 5 % 0 - 5 % [place] Erythrocyte distribution width (RBC) [Ratio] 12.7 % 12.1 - 15.2 % [place] Hematocrit (Bld) [Volume fraction] 37.1 % 36 - 46 % [place] Hemoglobin (Bld) [Mass/Vol] 12.7 g/dL 12 - 16 g/dL [place] Lymphocytes (Bld) [#/Vol] 2.50 10*3/uL [place] Lymphocytes/100 WBC (Bld) 31 % 15 - 40 % [place] MCH (RBC) [Entitic mass] 29.9 pg 26 - 34 pg [place] MCHC (RBC) [Mass/Vol] 34.2 g/dL 31 - 3 7 g/dL [place] MCV (RBC) [Entitic vol] 87.4 fL 80 - 100 fL [place] Monocytes (Bld) [#/Vol] 0.60 10*3/uL [place] Monocytes/100 WBC (Bld) 7 % 4 - 8 % [place] Platelet mean volume (Bld) [Entitic vol] NOT REPORTED 6 - 12 fL [place] Platelets (Bld) [#/Vol] NOT REPORTED [place] Platelets (Bld) [#/Vol] 292 10*3/uL [place] RBC (Bld) [#/Vol] 4.24 10*6/uL 4 - 5.2 m/uL [place] RBC morphology finding Nom (Bld) NOT REPORTED [place] Segmented neutrophils/100 WBC (Bld) 56 % 47 - 75 % [place] Segs Absolute 4.60 [place] WBC (Bld) [#/Vol] 8.1 10*3/uL [place] WBC (Bld) [#/Vol] NOT REPORTED per 100 WBC [place] WBC Morphology NOT REPORTED [place] CBC with Diffon 04-25-2020 Abs. Basophil 0.00 k/uL Normal 0.0-0.2 [facility] Comment on above: Performed By: #### T SH #### [facility] [address] [place] [address] Field Cane Scaler Helper: Chandler Mccall MD Abs.Neutrophil (Seg) 4.60 k/uL Normal 2.5-7.0 [facility] Comment on above: Performed By: #### T SH #### [facility] [address], [place] [phone] Field Cane Scaler Helper: Chandler Mccall MD Auto Diff Performed YES Normal [facility] Comment on above: Performed By: #### T SH #### [facility] [address] [place] [address] Field Cane Scaler Helper: Chandler Mccall MD Basophils/100 WBC (Bld) 1 % Normal 0-[address] [facility] Comment on above: Performed By: #### T SH #### [facility] [address], [place] [phone] Field Cane Scaler Helper: Chandler Mccall MD Eosinophils (Bld) [#/Vol] 0.40 10*3/uL Normal 0.0-0.[address] [facility] Comment on above: Performed By: #### T SH #### [facility] [address], [place] [phone] Field Cane Scaler Helper: Chandler Mccall MD Eosinophils/100 WBC (Bld) 5 % Normal 0-[address] [facility] Comment on above: Performed By: #### T SH #### [facility] [address] [place] [address] Field Cane Scaler Helper: Chandler Mccall MD Erythrocyte distribution width (RBC) [Ratio] 12.7 % Normal 12.1-15.[address] [facility] Comment on above: Performed By: #### T SH #### [facility] [address] [place] [address] Field Cane Scaler Helper: Chandler Mccall MD Hematocrit (Bld) [Volume fraction] 37.1 % Normal 36-[address] [facility] Comment on above: Performed By: #### T SH #### [facility] [address] [place] [address] Field Cane Scaler Helper: Chandler Mccall MD Hemoglobin (Bld) [Mass/Vol] 12.7 g/dL Normal 12.0-16.[address] [facility] Comment on above: Performed By: #### T SH #### [facility] [address] [place] [address] Field Cane Scaler Helper: Chandler Mccall MD Lymphocytes (Bld) [#/Vol] 2.50 10*3/uL Normal 1.0-4.[address] [facility] Comment on above: Performed By: #### T SH #### [facility] [address] [place] [address] Field Cane Scaler Helper: Chandler Mccall MD Lymphocytes/100 WBC (Bld) 31 % Normal 15-[address] [facility] Comment on above: Performed By: #### T SH #### [facility] [address] [place] [address] Field Cane Scaler Helper: Chandler Mccall MD MCH (RBC) [Entitic mass] 29.9 pg Normal 26-[address] [facility] Comment on above: Performed By: #### T SH #### [facility] [address] [place] [id number] Field Cane Scaler Helper: Chandler Mccall MD MCHC (RBC) [Mass/Vol] 34.2 g/dL Normal 31-37 [facility] Comment on above: Performed By: #### T SH #### [facility] [address], [place] [phone] Field Cane Scaler Helper: Chandler Mccall MD MCV (RBC) [Entitic vol] 87.4 fL Normal 80-[address] [facility] Comment on above: Performed By: #### T SH #### [facility] [address] [place] [address] Field Cane Scaler Helper: Chandler Mccall MD Monocytes (Bld) [#/Vol] 0.60 10*3/uL Normal 0.0-1.[address] [facility] Comment on above: Performed By: #### T SH #### [facility] [address] [place] [address] Field Cane Scaler Helper: Chandler Mccall MD Monocytes/100 WBC (Bld) 7 % Normal 4-[address] [facility] Comment on above: Performed By: #### T SH #### [facility] [address] [place] [address] Field Cane Scaler Helper: Chandler Mccall MD Neutrophil (Seg) 56 % Normal 47-75 [facility] Comment on above: Performed By: #### T SH #### [facility] [address] [place] [address] [phone] Field Cane Scaler Helper: Chandler Mccall MD Platelets (Bld) [#/Vol] 292 10*3/uL Normal 140-[address] [facility] Comment on above: Performed By: #### T SH #### [facility] [address] [place] [address] Field Cane Scaler Helper: Chandler Mccall MD RBC (Bld) [#/Vol] 4.24 10*6/uL Normal 4.0-5.[address] [facility] Comment on above: Performed By: #### T SH #### [facility] [address] [place] [address] Field Cane Scaler Helper: Chandler Mccall MD WBC (Bld) [#/Vol] 8.1 10*3/uL Normal 3.5-11.[address] [facility] Comment on above: Performed By: #### T SH #### [facility] [address] [place] [address] Field Cane Scaler Helper: Chandler Mccall MD Abs.Imm.Granulocyte NOT REPORTED Normal 0.00-0.30 [facility] Comment on above: Performed By: #### T SH #### [facility] [address] [place] [address] Field Cane Scaler Helper: Chandler Mccall MD Immature granulocytes (Bld) [#/Vol] NOT REPORTED Normal [address] [facility] Comment on above: Performed By: #### T SH #### [facility] [address] [place] [address] Field Cane Scaler Helper: Chandler Mccall MD NRBC Automated NOT REPORTED Normal [facility] Comment on above: Performed By: #### T SH #### [facility] [address] [place] [address] Field Cane Scaler Helper: Chandler Mccall MD Platelet mean volume (Bld) [Entitic vol] NOT REPORTED Normal 6.0-12.0 [facility] Comment on above: Performed By: #### T SH #### [facility] [address], [place] [phone] Field Cane Scaler Helper: Chandler Mccall MD Platelets (Bld) [#/Vol] NOT REPORTED Normal [facility] Comment on above: Performed By: #### T SH #### [facility] [address] [place] [address] Field Cane Scaler Helper: Chandler Mccall MD RBC morphology finding Nom (Bld) NOT REPORTED Normal [facility] Comment on above: Performed By: #### T SH #### [facility] [address] [place] [address] Field Cane Scaler Helper: Chandler Mccall MD WBC Morphology NOT REPORTED Normal [facility] Comment on above: Performed By: #### T SH #### [facility] [address] [place] [address] Field Cane Scaler Helper: Chandler Mccall MD HCG, ,Urineon 04-25 Beta HCG ( test) Ql (U) Negative Normal NEG [facility] Comment on above: Performed By: #### U HCG, UA, UMICAO #### [facility] [address] [place] [address] Field Cane Scaler Helper: Florentino Galvan MD Microscopic Urinalysison Amorphous, UA NOT REPORTED None [facility], [place] Bacteria, UA RARE Abnormal None [place] Casts UA NOT REPORTED /LPF [place] Crystals, UA NOT REPORTED None /HPF [facility], [place] Epithelial Cells UA 2 TO 5 /HPF [place] Interpretation and review of laboratory results Abnormal [place] Mucus, UA NOT REPORTED None [place] Other Observations UA NOT REPORTED NOT REQ. M [facility], [place] RBC (U) [#/Vol] 2 TO 5 [facility], [place] Renal Epithelial, UA NOT REPORTED 0 /HPF [place] Trichomonas, UA NOT REPORTED None [facility] [place] WBC, UA 5 TO 10 0 /HPF [place] Yeast, UA NOT REPORTED None [place] - [facility], [place] Otheron 04-25-2020 Immature granulocytes (Bld) [#/Vol] NOT REPORTED 0 % [place] , Urineon 0 Beta HCG ( test) Ql (U) Negative NEGATIVE [place] Urinalysis, Routineon 2019 Acetoacetic Acid,Ur Negative Normal NEG [facility] Comment on above: Performed By: #### U HCG, UA, UMICAO #### [facility] [address] [place] [address] Field Cane Scaler Helper: Florentino Galvan MD Bilirubin, SemiQt,Ur Negative Normal NEG [facility] Comment on above: Performed By: #### U HCG, UA, UMICAO #### [facility] [address] [place] [address] Field Cane Scaler Helper: Florentino Galvan MD Color (U) YELLOW Normal YEL [facility] Comment on above: Performed By: #### U HCG, UA, UMICAO #### [facility] [address] [place] [address] Field Cane Scaler Helper: Florentino Galvan MD Comment Normal [facility] Comment on above: Performed By: #### U HCG, UA, UMICAO #### [facility] [address] [place] [address] Field Cane Scaler Helper: Florentino Galvan MD Glucose Ql (U) Negative Normal NEG [facility] Comment on above: Performed By: #### U HCG, UA, UMICAO #### [facility] [address] [place] [address] Field Cane Scaler Helper: Florentino Galvan MD Hemoglobin, Ur TRACE Abnormal NEG [facility] Comment on above: Performed By: #### U HCG, UA, UMICAO #### [facility] [address] [place] [address] Field Cane Scaler Helper: Florentino Galvan MD Leukocyte esterase Test strip Ql (U) 1+ Abnormal NEG [facility] Comment on above: Performed By: #### U HCG, UA, UMICAO #### [facility] [address] [place] [address] Field Cane Scaler Helper: Florentino Galvan MD Nitrite,Ur Negative Normal NEG [facility] Comment on above: Performed By: #### U HCG, UA, UMICAO #### [facility] [address] [place] [address] Field Cane Scaler Helper: Florentino Galvan MD pH (U) 5.0 [pH] Normal 5.0-8.[address] [facility] Comment on above: Performed By: #### U HCG, UA, UMICAO #### [facility] [address] [place] [address] Field Cane Scaler Helper: Florentino Galvan MD Protein Ql (U) Negative Normal NEG [facility] Comment on above: Performed By: #### U HCG, UA, UMICAO #### [facility] [address] [place] [address] Field Cane Scaler Helper: Florentino Galvan MD Specific gravity (U) [Rel density] 1.025 Normal 1.005-1.[address] [facility] Comment on above: Performed By: #### U HCG, UA, UMICAO #### [facility] [address] [place] [address] Field Cane Scaler Helper: Florentino Galvan MD Turbidity CLEAR Normal CLEAR [facility] Comment on above: Performed By: #### U HCG, UA, UMICAO #### [facility] [address] [place] [address] Field Cane Scaler Helper: Florentino Galvan MD Urobilinogen,Ur Normal Normal NORM [facility] Comment on above: Performed By: #### U HCG, UA, UMICAO #### [facility] [address] [place] [address] Field Cane Scaler Helper: Florentino Galvan MD Urinalysis, reflex to [facility] copicon 04-25-2020 Bilirubin Urine Negative NEGATIVE [facility] [place] Color, UA YELLOW YELLOW [facility] [place] Glucose, Ur Negative NEGATIVE [facility] [place] Interpretation and review of laboratory results Abnormal [facility], [place] Ketones Ql (U) Negative NEGATIVE [place] Leukocyte esterase Test strip Ql (U) 1+ Abnormal NEGATIVE [place] Nitrite, Urine Negative NEGATIVE [place] pH, UA 5.0 [place] Protein (U) [Mass/Vol] Negative NEGATIVE [place] Specific Bertha, UA 1.025 [place] Turbidity UA CLEAR CLEAR [place] Urinalysis Comments [place] Urine Hgb TRACE Abnormal NEGATIVE [place] Urobilinogen, Urine Normal Normal [place] Urinalysis,Microon 0 ----- Normal [facility] Comment on above: Performed By: #### U HCG, UA, UMICAO #### [facility] [address] [place] [address] Field Cane Scaler Helper: Florentino Galvan MD Bacteria LM.HPF (Urine sed) [#/Area] RARE Abnormal NONE [facility] Comment on above: Performed By: #### U HCG, UA, UMICAO #### [facility] [address] [place] [address] Field Cane Scaler Helper: Florentino Galvan MD Epithelial cells LM.HPF (Urine sed) [#/Area] 2 TO [address] [facility] Comment on above: Performed By: #### U HCG, UA, UMICAO #### [facility] [address] [place] [id number] Field Cane Scaler Helper: Florentino Galvan MD RBC (U) [#/Vol] 2 TO 5 Normal 0-2 [facility] Comment on above: Performed By: #### U HCG, UA, UMICAO #### [facility] [address] [place] [address] Field Cane Scaler Helper: Florentino Galvan MD WBC (U) [#/Vol] 5 TO 10 Normal 0 [facility] Comment on above: Performed By: #### U HCG, UA, UMICAO #### [facility] [address] [place] [address] Field Cane Scaler Helper: Florentino Galvan MD Amorphous sediment LM Ql (Urine sed) NOT REPORTED Normal NONE [facility] Comment on above: Performed By: #### U HCG, UA, UMICAO #### [facility] [address] [place] [address] Field Cane Scaler Helper: Florentino Galvan MD Casts LM.LPF (Urine sed) [#/Area] NOT REPORTED Normal [facility] Comment on above: Performed By: #### U HCG, UA, UMICAO #### [facility] [address] [place] [address] Field Cane Scaler Helper: Florentino Galvan MD Crystals LM Nom (Urine sed) NOT REPORTED Normal NONE [facility] Comment on above: Performed By: #### U HCG, UA, UMICAO #### [facility] [address], [place] [phone] Field Cane Scaler Helper: Florentino Galvan MD Epithelial, Renal NOT REPORTED Normal [address] [facility] Comment on above: Performed By: #### U HCG, UA, UMICAO #### [facility] [address], [place] [phone] Field Cane Scaler Helper: Florentino Galvan MD Mucus Strands NOT REPORTED Normal NONE [facility] Comment on above: Performed By: #### U HCG, UA, UMICAO #### [facility] [address], [place] [phone] Field Cane Scaler Helper: Florentino Galvan MD Other Observations NOT REPORTED Normal NREQ [facility] Comment on above: Performed By: #### U HCG, UA, UMICAO #### [facility] [address] [place] [address] Field Cane Scaler Helper: Florentino Galvan MD Trichomonas NOT REPORTED Normal NONE [facility] Comment on above: Performed By: #### U HCG, UA, UMICAO #### [facility] [address] [place] [address] Field Cane Scaler Helper: Florentino Galvan MD Yeast LM Ql (Urine sed) NOT REPORTED Normal NONE [facility] Comment on above: Performed By: #### U HCG, UA, UMICAO #### [facility] [address] [place] [address] Field Cane Scaler Helper: Florentino Galvan MD Cystoscopy, Remove Calculus, Simpleon 10-31-2019 Preeti murillo MD 10/31/2019 11:51 AM Cystoscopy, Remove Calculus, Simple Date/Time: 10/31/2019 11:44 AM Performed by: Preeti Garzon MD Authorized by: Preeti Garzon MD Verbal consent: obtained Written consent: not obtained Consent given by: patient Relevant documents: Relevent documents present and verified. Medical history, medications, allergies and physical assessment reviewed/completed Test results: test results available and properly labeled Site: site not marked Reason site not marked: N/A Relevant imaging studies available and labeled: Yes Preparation: Patient was prepped and draped in usual sterile fashion Local anesthesia used?: Yes Local anesthetic: Topical anestheticPatient sedated: no Patient tolerance: Patient tolerated the procedure well with no immediate complications [facility] XR ABDOMEN /KUB/FLAT PLATE/1 VIEWon 10-22-2019 XR ABDOMEN /KUB/FLAT PLATE/1 VIEW EXAMINATION: XR ABDOMEN /KUB/FLAT PLATE/1 VIEW 10/22/2019 8:19 am HISTORY: ORDERING SYSTEM PROVIDED HISTORY: left ureteral stone, TECHNOLOGIST PROVIDED HISTORY: Illness/Other Reason for exam: left side stone Cancer History: no Surgery, RadiationHistory: no Encounter Type: Initial Additional signs and symptoms: no ORDERING SYSTEM PROVIDED DIAGNOSIS CODES: COMPARISON: CT abdomen and pelvis 10/21/2019. TECHNIQUE: Portable supine abdomen 0820 hours. FINDINGS: 0.7 cm lower pole right nephrolithiasis is seen. 0.7 cm left ureterolithiasis is noted, L3 vertebral level corresponding with left ureterolithiasis seen on CT assessment. Pelvic calcifications are seen likely phlebolithic. Bowel gas pattern is nonspecific and nonobstructive. Bowel pattern is nonobstructive. IMPRESSION: 1. Lower pole right nephrolithiasis, 0.7 cm. 2. 0.7 cm left ureterolithiasis, L3 level. 3. 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 4. Nonobstructive bowel pattern. [employer] Workstation ID: [id number] Dictated by: JENNIFER SALMON on SunOct 22, 2019 8:39:19 AM EDT Transcribed by: KOBI MAZARIEGOS on SunOct 22, 2019 9:02:09 AM EDT Finalized by: JENNIFER SALMON on SunOct 22, 2019 9:11:19 AM EDT Normal [facility] Comment on above: Order Comment: Injur y/Trauma or Illness?:Illness/Other How long have you had these symptoms (acute/chronic)?:Acute Reason for exam?:left side stone History of cancer?:no Surgeries, chemotherapy, or radiation?:no Type of Exam?:Initial Additional signs and symptoms?:no XR ABDOMEN 1 VIEWon 10-22-19 20 1. Lower pole right nephrolithiasis, 0.7 cm. 2. 0.7 cm left ureterolithiasis, L3 level. 3. 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 4. Nonobstructive bowel pattern. [employer] Workstation ID: [id number] [facility] EXAMINATION: XR ABDO MEN /KUB/FLAT PLATE/1 VIEW 10/22/2019 8:19 am HISTORY: ORDERING SYSTEM PROVIDED HISTORY: left ureteral stone, TECHNOLOGIST PROVIDED HISTORY: Illness/Other Reason for exam: left side stone Cancer History: no Surgery, RadiationHistory: no Encounter Type: Initial Additional signs and symptoms: no ORDERING SYSTEM PROVIDED DIAGNOSIS CODES: COMPARISON: CT abdomen and pelvis 10/21/2019. TECHNIQUE: Portable supine abdomen 0820 hours. FINDINGS: 0.7 cm lower pole right nephrolithiasis is seen. 0.7 cm left ureterolithiasis is noted, L3 vertebral level corresponding with left ureterolithiasis seen on CT assessment. Pelvic calcifications are seen likely phlebolithic. Bowel gas pattern is nonspecific and nonobstructive. Bowel pattern is nonobstructive. [facility] Interface, Felipe In Fu ji Speechq - 10/22/2019 9:13 AM EDT EXAMINATION: XR ABDOMEN /KUB/FLAT PLATE/1 VIEW 10/22/2019 8:19 am HISTORY: ORDERING SYSTEM PROVIDED HISTORY: left ureteral stone, TECHNOLOGIST PROVIDED HISTORY: Illness/Other Reason for exam: left side stone Cancer History: no Surgery, RadiationHistory: no Encounter Type: Initial Additional signs and symptoms: no ORDERING SYSTEM PROVIDED DIAGNOSIS CODES: COMPARISON: CT abdomen and pelvis 10/21/2019. TECHNIQUE: Portable supine abdomen 0820 hours. FINDINGS: 0.7 cm lower pole right nephrolithiasis is seen. 0.7 cm left ureterolithiasis is noted, L3 vertebral level corresponding with left ureterolithiasis seen on CT assessment. Pelvic calcifications are seen likely phlebolithic. Bowel gas pattern is nonspecific and nonobstructive. Bowel pattern is nonobstructive. IMPRESSION: 1. Lower pole right nephrolithiasis, 0.7 cm. 2. 0.7 cm left ureterolithiasis, L3 level. 3. 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 4. Nonobstructive bowel pattern. [facility] Workstation ID: [id number] [facility] XR OR FLUOROSCOPY TIMEon XR OR FLUOROSCOPY TIME This is an auto finalized result. Please refer to patient chart for further information. further information. further information. [facility] Comment on above: Order Comment: Injur y/Trauma or Illness?:Illness/Other How long have you had these symptoms (acute/chronic)?:Acute Reason for exam?:bilateral stone removal, left stent placement Type of Exam?:Initial Additional signs and symptoms?:none Fluoro time in minutes:1.73 Fluoro dose in mGy?:29 XR OR Fluoroscopy Timeon This is an auto finalized result. Please refer to patient chart for further information. [facility] XR OR RETROGRADE PYELOGRAMon 10-22-2019 Operative procedure with fluoroscopic guidance. Please see the procedural report for additional details. Workstation ID: [id number] [facility] EXAMINATION: XR OR RETROGRADE PYELOGRAM HISTORY: ORDERING SYSTEM PROVIDED HISTORY: stone, TECHNOLOGIST PROVIDED HISTORY: Illness/Other Reason for exam: bilateral stone removal, left stent placement Encounter Type: Initial Additional signs and symptoms: none Fluoro dose in mGy: 29 ORDERING SYSTEM PROVIDED DIAGNOSIS CODES: COMPARISON: KUB from Arnett of 10/22/2027 at 8:19 a.m.. TECHNICAL DATA: Fluoro Dose Ka,r mGy: Fluoro dose in Ka,r mGy: 29 Fluoroscopy time: Fluoro time in minutes: 1.73 Fluoroscopy equipment and personnel were provided for the procedure. No radiologist was present for the procedure and no indication of an intraoperative radiologic consultation is noted. FINDINGS: Images on the left side demonstrate intrarenal contrast material. Placement of a ureteral stent is documented with the proximal loop in the renal pelvis region. Images of the right side demonstrate limited filling of lower pole infundibulum. [facility] Interface, Rad In Fu ji Speechq - 10/22/2019 4:01 PM EDT EXAMINATION: XR OR RETROGRADE PYELOGRAM HISTORY: ORDERING SYSTEM PROVIDED HISTORY: stone, TECHNOLOGIST PROVIDED HISTORY: Illness/Other Reason for exam: bilateral stone removal, left stent placement Encounter Type: Initial Additional signs and symptoms: none Fluoro dose in mGy: 29 ORDERING SYSTEM PROVIDED DIAGNOSIS CODES: COMPARISON: KUB from Johnny of 10/22/2027 at 8:19 a.m.. TECHNICAL DATA: Fluoro Dose Ka,r mGy: Fluoro dose in Ka,r mGy: 29 Fluoroscopy time: Fluoro time in minutes: 1.73 Fluoroscopy equipment and personnel were provided for the procedure. No radiologist was present for the procedure and no indication of an intraoperative radiologic consultation is noted. FINDINGS: Images on the left side demonstrate intrarenal contrast material. Placement of a ureteral stent is documented with the proximal loop in the renal pelvis region. Images of the right side demonstrate limited filling of lower pole infundibulum. IMPRESSION: Operative procedure with fluoroscopic guidance. Please see the procedural report for additional details. Workstation ID: [id number] [facility] XR OR RETROGRADE PYELOGRAM EXAMINATION: XR OR RETROGRADE PYELOGRAM HISTORY: ORDERING SYSTEM PROVIDED HISTORY: stone, TECHNOLOGIST PROVIDED HISTORY: Illness/Other Reason for exam: bilateral stone removal, left stent placement Encounter Type: Initial Additional signs and symptoms: none Fluoro dose in mGy: 29 ORDERING SYSTEM PROVIDED DIAGNOSIS CODES: COMPARISON: KUB from Arnett of 10/22/2027 at 8:19 a.m.. TECHNICAL DATA: Fluoro Dose Ka,r mGy: Fluoro dose in Ka,r mGy: 29 Fluoroscopy time: Fluoro time in minutes: 1.73 Fluoroscopy equipment and personnel were provided for the procedure. No radiologist was present for the procedure and no indication of an intraoperative radiologic consultation is noted. FINDINGS: Images on the left side demonstrate intrarenal contrast material. Placement of a ureteral stent is documented with the proximal loop in the renal pelvis region. Images of the right side demonstrate limited filling of lower pole infundibulum. IMPRESSION: Operative procedure with fluoroscopic guidance. Please see the procedural report for additional details. Workstation ID: [id number] Dictated by: AMBER CORREIA on SunOct 22, 2019 3:58:25 PM EDT Transcribed by: AMBER CORREIA on SunOct 22, 2019 3:58:25 PM EDT Finalized by: AMBER CORREIA on SunOct 22, 2019 3:58:25 PM EDT Normal [facility] Comment on above: Order Comment: Injur y/Trauma or Illness?:Illness/Other How long have you had these symptoms (acute/chronic)?:Acute Reason for exam?:bilateral stone removal, left stent placement Type of Exam?:Initial Additional signs and symptoms?:none Fluoro time in minutes:1.73 Fluoro dose in mGy?:29 hCG Urine, Qualitativeon HCG ( test) Ql (U) Negative Negative [facility] Interpretation and review of laboratory results Normal [facility] BMPon 10-21-2019 Anion gap [Moles/Vol] 10 mmol/L 10 - 2 0 mmol/L [facility] Calcium [Mass/Vol] 8.9 mg/dL 8.4 - 10. 2 mg/dL [facility] Chloride [Moles/Vol] 108 mmol/L 98 - 10 8 mmol/L [facility] Creatinine [Mass/Vol] 1.20 mg/dL High 0.40 - 1.10 [facility] GFR/1.73 sq M predicted among non-blacks MDRD (S/P/Bld) [Vol rate/Area] The eGFR should be used for monitoring renal function only and not for medication dosing. [facility] GFR/1.73 sq M.predicted CKD-EPI (S/P/Bld) [Vol rate/Area] 57 Low >=60 mL/min/1.73 m2 [facility] Glucose [Mass/Vol] 106 mg/dL High 65 - 99 mg/dL [facility] HCO3 [Moles/Vol] 26 mmol/L 21 - 32 mmol/L [facility] Interpretation and review of laboratory results Abnormal [facility] Potassium [Moles/Vol] 3.5 mmol/L 3.5 - 5.1 mmol/L [facility] Sodium [Moles/Vol] 140 mmol/L 135 - 145 mmol/L [facility] Urea nitrogen [Mass/Vol] 16 mg/dL 8 - 25 mg/dL [facility] Urea nitrogen/Creatinine [Mass ratio] 13.3 mg/mg [facility] CBC WITH AUTO DIFFERENTIALon 10-21-2019 Basophils (Bld) [#/Vol] 0.03 10*3/uL [facility] Basophils/100 WBC (Bld) 0.3 % [facility] Eosinophils (Bld) [#/Vol] 0.05 10*3/uL [facility] Eosinophils/100 WBC (Bld) 0.4 % [facility] Erythrocyte distribution width (RBC) [Entitic vol] 12.3 % 11.6 - 14.8 % [facility] Hematocrit (Bld) [Volume fraction] 36.9 % 36 - 46 % [facility] Hemoglobin (Bld) [Mass/Vol] 12.8 g/dL 12 - 16 g/dL [facility] Immature granulocytes (Bld) [#/Vol] 0.02 10*3/uL [facility] Immature granulocytes/100 WBC (Bld) 0.20 % [facility] Comment on above: The IG parameter is the percentage of metamyelocytes, myelocytes, and promyelocytes. Interpretation and review of laboratory results Abnormal [facility] Lymphocytes (Bld) [#/Vol] 1.17 10*3/uL [facility] Lymphocytes/100 WBC (Bld) 10.4 % [facility] MCH (RBC) [Entitic mass] 29.6 pg 26 - 34 pg [facility] MCHC (RBC) [Mass/Vol] 34.7 g/dL 31 - 3 7 g/dL [facility] MCV (RBC) [Entitic vol] 85.4 fL 80 - 100 fL [facility] Monocytes (Bld) [#/Vol] 0.61 10*3/uL [facility] Monocytes/100 WBC (Bld) 5.4 % [facility] Neutrophils (Bld) [#/Vol] 9.34 10*3/uL [facility] Neutrophils/100 WBC (Bld) 83.3 % [facility] Platelet mean volume (Bld) [Entitic vol] 9.9 fL 9 - 15.5 fL [facility] Platelets (Bld) [#/Vol] 283 10*3/uL [facility] RBC (Bld) [#/Vol] 4.32 10*6/uL [facility] WBC (Bld) [#/Vol] 11.22 10*3/uL [facility] CT KIDNEY STONEon 10-21-2019 CT KIDNEY STONE EXAMINATION: CT KIDNEY STONE HISTORY: ORDERING SYSTEM PROVIDED HISTORY: Flank pain, kidney stone suspected; LLQ pain/hx kidney stone, TECHNOLOGIST PROVIDED HISTORY: Illness/Other Reason for exam: Flank pain; LLQ pain/hx kidney stone Encounter Type: Initial Additional signs and symptoms: nausea ORDERING SYSTEM PROVIDED DIAGNOSIS CODES: COMPARISON: 08/02/2019 TECHNIQUE: CT examination of the abdomen and pelvis without IV contrast. Coronal and sagittal reformations were performed. Renal stone protocol. Portions of the upper abdomen solid organs are not completely included in the imaging field of view. Dose reduction techniques were achieved by using automated exposure control and/or adjustment of mA and/or kV according to patient size and/or use of iterative reconstruction technique. FINDINGS: LOWER CHEST: Normal. ABDOMEN: Liver: Normal. Bile ducts: Normal caliber. Gallbladder: No calcified gallstones. Normal caliber wall. Pancreas: Normal. Spleen: Normal. Adrenals: Normal. Kidneys: Mild left hydronephrosis. No right hydronephrosis. Right lower pole nonobstructing calculus measures 6 mm. PELVIS: Reproductive organs: No pelvic masses. Intrauterine device is centered within the fundal endometrial cavity. Ureters: Mild left hydroureter with obstructing proximal ureteral stone at the L3 vertebral level measuring 6 x 7 mm in the axial plane. Normal caliber right ureter. Bladder: Partially distended. OTHER ABDOMEN AND PELVIS: Bowel: No bowel obstruction. No appendicitis. Peritoneum: No free intraperitoneal air. No ascites or fluid collection. Vessels: Normal. Lymph nodes: No enlarged lymph nodes. Abdominal wall: Normal. Osseous structures: No destructive lesions. IMPRESSION: Mild left hydroureteronephrosis with 6 x 7 mm proximal obstructing ureteral stone. Nonobstructing right renal calculus. IUD in place. / Workstation ID: [id number] Dictated by: SMOOTH ECHOLS on SunOct 21, 2019 11:16:31 AM EDT Transcribed by: JEFRY ARGUETA on SunOct 21, 2019 11:27:47 AM EDT Finalized by: SMOOTH ECHOLS on SunOct 21, 2019 5:34:33 PM EDT Normal [facility] Comment on above: Order Comment: Injur y/Trauma or Illness?:Illness/Other How long have you had these symptoms (acute/chronic)?:Acute Reason for exam?:Flank pain; LLQ pain/hx kidney stone hx of kidney stones x 5 months Type of Exam?:Initial Additional signs and symptoms?:nausea HCG (QUALITATIVE)on 03-17-20 20 Beta HCG ( test) Ql Negative Negative [facility] Interpretation and review of laboratory results Normal [facility] Negative: The result is less than or equal to 5 mIU/mL of HCG. [facility] Hepatic Function Panel (LFT) on 10-21-2019 Albumin [Mass/Vol] 3.8 g/dL 3.2 - 5.2 g/dL [facility] ALP [Catalytic activity/Vol] 68 U/L 40 - 140 U/L [facility] ALT [Catalytic activity/Vol] 22 U/L 0 - 40 U/L [facility] AST [Catalytic activity/Vol] 19 U/L 0 - 45 U/L [facility] Bilirubin [Mass/Vol] 0.5 mg/dL 0 - 1.3 mg/dL [facility] Bilirubin.conjugated [Mass/Vol] 0.1 mg/dL 0 - 0.4 mg/dL [facility] Protein [Mass/Vol] 7.5 g/dL 6 - 8 g/dL [facility] alth Lipaseon 10-21-2019 Lipase [Catalytic activity/Vol] 157 U/L 73 - 393 U/L [facility] Otheron 10-21-2019 Extra Tube Hold for add-ons. [facility] Comment on above: Auto resulted. Interpretation and review of laboratory results Normal [facility] URINALYSISon 10-21-2019 Bacteria Auto Ql (U) None Seen None Se en /hpf [facility] Bilirubin Ql (U) Negative Negative [facility] th Calcium oxalate crystals Computer assisted (U) [#/Area] Rare Abnormal None Seen /hpf [facility] Clarity Refractometry automated (U) Cloudy Abnormal Clear [facility] Color (U) Yellow Colorless, Yellow [facility] Crystals.amorphous Computer assisted (U) [#/Area] Many Abnormal None Seen, Rare /hpf [facility] Epithelial cells.squamous Auto (Urine sed) [#/Area] 20 High [facility] Glucose Auto test strip (U) [Mass/Vol] Negative Negative mg/dL [facility] Hemoglobin Auto test strip Ql (U) Small Abnormal Negative [facility] Interpretation and review of laboratory results Abnormal [facility] Ketones (U) [Mass/Vol] Negative Negative mg/dL [facility] Leukocyte esterase Auto test strip Ql (U) Negative Negative [facility] Mucus Auto (Urine sed) [#/Area] Rare None Seen, Rare /lpf [facility] Nitrite Auto test strip Ql (U) Negative Negative [facility] pH (U) 8.5 [pH] High [facility] Protein (U) [Mass/Vol] 30 Abnormal Negative mg/dL [facility] Comment on above: False positive resul ts may occur in urines with large amounts of hemoglobin, pH greater than 8.0, contrast medium, or disinfectants including ammonium compounds. RBC Auto (Urine sed) [#/Area] 1 [facility] Specific gravity (U) [Rel density] 1.020 [facility] Urobilinogen (U) [Mass/Vol] <2.0 <2.0 mg/dL [facility] WBC Auto (Urine sed) [#/Area] 1 [facility] Microscopic examinat ion is performed on all urinalysis samples and only positive findings are reported. The test for blood on the chemical analytic portion of urinalysis may also be positive due to hemoglobinuria and myoglobinuria and if red blood cells are present they are quantified by microscopic examination. [facility] CT ABDOMEN/PELVIS WITHOUT CO NTRASTon 08-03-2019 CT ABDOMEN/PELVIS WITHOUT CONTRAST EXAMINATION: CT ABDOMEN/PELVIS WITHOUT CONTRAST HISTORY: Flank pain. COMPARISON: CT abdomen/pelvis from May 24, 2019. TECHNIQUE: CT examination of the abdomen/pelvis without IV contrast. Coronal and sagittal reformations were performed. Dose reduction techniques were achieved by using automated exposure control and/or adjustment of mA and/or kV according to patient size and/or use of iterative reconstruction technique. FINDINGS: No focal consolidation at the lung bases. The osseous structures are intact. The unenhanced liver, spleen, pancreas, gallbladder and bilateral adrenal glands are unremarkable. The aorta is nonaneurysmal. No abdominal/pelvic lymphadenopathy is present. There is a 6 mm calculus positioned at the left ureteropelvic junction, having demonstrated mild antegrade progression from the prior comparison exam. No significant left-sided hydronephrosis is noted. There is no hydronephrosis at the right kidney and there is a 5 mm nonobstructing right renal calculus. The bladder demonstrates a mildly thick-walled appearance, but appears underdistended. No bowel obstruction or discrete evidence of acute bowel inflammatory changes. Unremarkable appendix. There is an intrauterine device noted. No significant pelvic free fluid is present. IMPRESSION: 6 mm calculus positioned at the left ureteropelvic junction, having demonstrated mild antegrade progression from the prior comparison exam. No significant left-sided hydronephrosis is noted, however, the calculus may be partially obstructing or symptomatic based on its size and location. Thick-walled appearance of the bladder for which cystitis cannot be excluded; correlation with urinalysis is advised. No bowel obstruction or discrete evidence of acute bowel inflammatory changes. Unremarkable appendix. Normal [facility] CBCon 08-02-2019 ABSOLUTE BAS 0.0 10*3/uL Normal 0.0-0.2 [facility] Comment on above: Performed By: #### A CBC, CHEM7F #### Testing performed at [address] [address] ABSOLUTE EOS 0.20 10*3/uL Normal 0.0-0.7 [facility] Comment on above: Performed By: #### A CBC, CHEM7F #### Testing performed at [address] [address] ABSOLUTE NEUTROPHIL COUNT 3.6 10*3/uL Normal 1.4-6.5 [facility] Comment on above: Performed By: #### A CBC, CHEM7F #### Testing performed at [address] [address] Basophils/100 WBC (Bld) 0.1 % Normal 0.0-2.0 [facility] Comment on above: Performed By: #### A CBC, CHEM7F #### Testing performed at [address] [address] DTYPE AUT[address] Normal [facility] Comment on above: Performed By: #### A CBC, CHEM7F #### Testing performed at [address] [address] Eosinophils/100 WBC (Bld) 4.8 % Normal 0.0-11.0 [facility] Comment on above: Performed By: #### A CBC, CHEM7F #### Testing performed at [address] [address] Lymphocytes (Bld) [#/Vol] 0.40 10*3/uL Low 1.2-3.4 [facility] Comment on above: Performed By: #### A CBC, CHEM7F #### Testing performed at [address] [address] Lymphocytes/100 WBC (Bld) 8.2 % Low 20.0-55.0 [facility] Comment on above: Performed By: #### A CBC, CHEM7F #### Testing performed at [address] [address] Monocytes (Bld) [#/Vol] 0.4 10*3/uL Normal 0.0-0.7 [facility] Comment on above: Performed By: #### A CBC, CHEM7F #### Testing performed at [address] [address] Monocytes/100 WBC (Bld) 9.0 % Normal 0.0-10.0 [facility] Comment on above: Performed By: #### A CBC, CHEM7F #### Testing performed at [address] [address] Neutrophils/100 WBC (Bld) 77.9 % High 37.0-75.0 [facility] Comment on above: Performed By: #### A CBC, CHEM7F #### Testing performed at [address] [address] Erythrocyte distribution width (RBC) [Ratio] 13.0 % Normal 11.5-14.5 [facility] Comment on above: Performed By: #### A CBC, CHEM7F #### Testing performed at [address] [address] Hematocrit (Bld) [Volume fraction] 37.5 % Normal 36.0-48.0 [facility] Comment on above: Performed By: #### A CBC, CHEM7F #### Testing performed at [address] [address] Hemoglobin (Bld) [Mass/Vol] 12.7 g/dL Normal 12.0-16.0 [facility] Comment on above: Performed By: #### A CBC, CHEM7F #### Testing performed at [address] [address] MCH (RBC) [Entitic mass] 29.9 pg Normal 26.0-35.0 [facility] Comment on above: Performed By: #### A CBC, CHEM7F #### Testing performed at [address] [address] MCHC (RBC) [Mass/Vol] 33.8 g/dL Normal 27.0-37.0 [facility] Comment on above: Performed By: #### A CBC CHEM7F #### Testing performed at [address] [address] MCV (RBC) [Entitic vol] 88.7 fL Normal 80.0-100.0 [facility] Comment on above: Performed By: #### A CBC CHEM7F #### Testing performed at [address] [address] Platelet mean volume (Bld) [Entitic vol] 8.7 fL Normal 7.4-11.0 [facility] Comment on above: Performed By: #### A CBC CHEM7F #### Testing performed at [address] [address] Platelets (Bld) [#/Vol] 176 10*3/uL Normal 130.0-400.0 [facility] Comment on above: Performed By: #### A CBC CHEM7F #### Testing performed at [address] [address] RBC (Bld) [#/Vol] 4.23 10*6/uL Normal 4.0-5.4 [facility] Comment on above: Performed By: #### A CBC CHEM7F #### Testing performed at [address] [address] WBC (Bld) [#/Vol] 4.6 10*3/uL Normal 3.6-11.0 [facility] Comment on above: Performed By: #### A CBC, CHEM7F #### Testing performed at [address] [address] CBC, EDIF, PLATELETon 2018 ABSOLUTE BASOPHIL COUNT 0.0 10*3/uL 0 - 0.2 10*3/uL [facility] Basophils/100 WBC (Bld) 0.1 % 0 - 2 % [facility] Differential cell count method Nom (Bld) AUTO DIFF % [facility] Eosinophils (Bld) [#/Vol] 0.20 10*3/uL 0 - 0.7 10*3/uL [facility] Eosinophils/100 WBC (Bld) 4.8 % 0 - 11 % [facility] Erythrocyte distribution width (RBC) [Ratio] 13.0 % 11.5 - 14.5 % [facility] Hematocrit (Bld) [Volume fraction] 37.5 % 36 - 48 % [facility] Hemoglobin (Bld) [Mass/Vol] 12.7 g/dL [facility] Lymphocytes (Bld) [#/Vol] 0.40 10*3/uL Low 1.2 - 3.4 10*3/uL [facility] Lymphocytes/100 WBC (Bld) 8.2 % Low 20 - 55 % [facility] MCH (RBC) [Entitic mass] 29.9 pg 26 - 35 PG [facility] MCHC (RBC) [Mass/Vol] 33.8 g/dL [facility] MCV (RBC) [Entitic vol] 88.7 fL [facility] Monocytes (Bld) [#/Vol] 0.4 10*3/uL 0 - 0.7 10*3/uL [facility] Monocytes/100 WBC (Bld) 9.0 % 0 - 10 % [facility] Neutrophils (Bld) [#/Vol] 3.6 10*3/uL 1.4 - 6.5 10*3/uL [facility] Neutrophils/100 WBC (Bld) 77.9 % High 37 - 75 % [facility] Platelet mean volume (Bld) [Entitic vol] 8.7 fL [facility] Platelets (Bld) [#/Vol] 176 10*3/uL 130 - 400 10*3/uL [facility] RBC (Bld) [#/Vol] 4.23 10*6/uL 4 - 5.4 10*6/uL [facility] WBC (Bld) [#/Vol] 4.6 10*3/uL 3.6 - 11 10*3/uL [facility] CHEM 7 FASTINGon 08-02-2019 Creatinine [Mass/Vol] 0.98 mg/dL Normal 0.52-1.04 [facility] Comment on above: Performed By: #### A CBC, CHEM7F #### Testing performed at [address] [place] [address] EST. GFR, >[address] [facility] Comment on above: Performed By: #### A CBC, CHEM7F #### Testing performed at [address] [address] EST. GFR,Non >[address] [facility] Comment on above: Performed By: #### A CBC, CHEM7F #### Testing performed at [address] [address] GFR/1.73 sq M predicted among non-blacks MDRD (S/P/Bld) [Vol rate/Area] Average GFR for 30-39 years old = 109. Normal [facility] Comment on above: Result Comment: Trust Operations Assistant denny Kidney disease, GFR = <60. Kidney failure, GFR = <15. The GFR estimate is not adjusted for extreme body surface area or acute process, nor has it been validated for women or ethnic groups other than and . Performed By: #### A CBC, CHEM7F #### Testing performed at [address] [address] Urea nitrogen [Mass/Vol] 9 mg/dL Normal 7-20 [facility] Comment on above: Performed By: #### A CBC, CHEM7F #### Testing performed at [address] [address] Chloride [Moles/Vol] 100 mmol/L Normal 98-107 [facility] Comment on above: Performed By: #### A CBC, CHEM7F #### Testing performed at [address] [address] CO2 [Moles/Vol] 20 mmol/L Low 22-30 [facility] Comment on above: Performed By: #### A CBC, CHEM7F #### Testing performed at [address] [address] Glucose [Mass/Vol] 93 mg/dL Normal 70-100 [facility] Comment on above: Result Comment: NORMAL <100 mg/dL PREDIABETES 101-126 mg/dL DIABETES 126 mg/dL or higher Performed By: #### A CBC, CHEM7F #### Testing performed at [address] [address] Potassium [Moles/Vol] 3.6 mmol/L Normal 3.5-5.1 [facility] Comment on above: Performed By: #### A CBC, CHEM7F #### Testing performed at [place] [address] [place] [address] Sodium [Moles/Vol] 132 mmol/L Low 136-145 [facility] Comment on above: Performed By: #### A CBC, CHEM7F #### Testing performed at [address] [address] CHEM 7 (LYTES,BUN,CREA,GLUC) on 08-02-2019 Chloride [Moles/Vol] 100 mmol/L [facility] CO2 [Moles/Vol] 20 mmol/L Low [facility] Creatinine [Mass/Vol] 0.98 mg/dL [facility] GFR/1.73 sq M predicted among blacks MDRD (S/P/Bld) [Vol rate/Area] mL/min/{1.73_m2} ml/min/1.73 sq.m [facility] [facility] GFR/1.73 sq M predicted among non-blacks MDRD (S/P/Bld) [Vol rate/Area] mL/min/{1.73_m2} ml/min/1.73 sq.m [facility] GFR/1.73 sq M predicted among non-blacks MDRD (S/P/Bld) [Vol rate/Area] Average GFR for 30-39 years old = 109. [facility] Comment on above: Chronic Kidney disea se, GFR = <60. Kidney failure, GFR = <15. The GFR estimate is not adjusted for extreme body surface area or acute process, nor has it been validated for women or ethnic groups other than and . Glucose post fast [Mass/Vol] 93 mg/dL [facility] Comment on above: NORMAL <100 mg/dL PREDIABETES 101-126 mg/dL DIABETES 126 mg/dL or higher Potassium [Moles/Vol] 3.6 mmol/L [facility] Sodium [Moles/Vol] 132 mmol/L Low [facility] Urea nitrogen [Mass/Vol] 9 mg/dL [facility] CT ABDOMEN/PELVIS WITHOUT CO NTRASTon 08-02-2019 User, Interfaces - 08/03/2019 12:00 AM EST EXAMINATION: CT ABDOMEN/PELVIS WITHOUT CONTRAST HISTORY: Flank pain. COMPARISON: CT abdomen/pelvis from May 24, 2019. TECHNIQUE: CT examination of the abdomen/pelvis without IV contrast. Coronal and sagittal reformations were performed. Dose reduction techniques were achieved by using automated exposure control and/or adjustment of mA and/or kV according to patient size and/or use of iterative reconstruction technique. FINDINGS: No focal consolidation at the lung bases. The osseous structures are intact. The unenhanced liver, spleen, pancreas, gallbladder and bilateral adrenal glands are unremarkable. The aorta is nonaneurysmal. No abdominal/pelvic lymphadenopathy is present. There is a 6 mm calculus positioned at the left ureteropelvic junction, having demonstrated mild antegrade progression from the prior comparison exam. No significant left-sided hydronephrosis is noted. There is no hydronephrosis at the right kidney and there is a 5 mm nonobstructing right renal calculus. The bladder demonstrates a mildly thick-walled appearance, but appears underdistended. No bowel obstruction or discrete evidence of acute bowel inflammatory changes. Unremarkable appendix. There is an intrauterine device noted. No significant pelvic free fluid is present. IMPRESSION IMPRESSION: 6 mm calculus positioned at the left ureteropelvic junction, having demonstrated mild antegrade progression from the prior comparison exam. No significant left-sided hydronephrosis is noted, however, the calculus may be partially obstructing or symptomatic based on its size and location. Thick-walled appearance of the bladder for which cystitis cannot be excluded; correlation with urinalysis is advised. No bowel obstruction or discrete evidence of acute bowel inflammatory changes. Unremarkable appendix. [facility] EXAMINATION: CT ABDOMEN/PELVIS WITHOUT CONTRAST HISTORY: Flank pain. COMPARISON: CT abdomen/pelvis from May 24, 2019. TECHNIQUE: CT examination of the abdomen/pelvis without IV contrast. Coronal and sagittal reformations were performed. Dose reduction techniques were achieved by using automated exposure control and/or adjustment of mA and/or kV according to patient size and/or use of iterative reconstruction technique. FINDINGS: No focal consolidation at the lung bases. The osseous structures are intact. The unenhanced liver, spleen, pancreas, gallbladder and bilateral adrenal glands are unremarkable. The aorta is nonaneurysmal. No abdominal/pelvic lymphadenopathy is present. There is a 6 mm calculus positioned at the left ureteropelvic junction, having demonstrated mild antegrade progression from the prior comparison exam. No significant left-sided hydronephrosis is noted. There is no hydronephrosis at the right kidney and there is a 5 mm nonobstructing right renal calculus. The bladder demonstrates a mildly thick-walled appearance, but appears underdistended. No bowel obstruction or discrete evidence of acute bowel inflammatory changes. Unremarkable appendix. There is an intrauterine device noted. No significant pelvic free fluid is present. [facility] IMPRESSION: 6 mm calculus positioned at the left ureteropelvic junction, having demonstrated mild antegrade progression from the prior comparison exam. No significant left-sided hydronephrosis is noted, however, the calculus may be partially obstructing or symptomatic based on its size and location. Thick-walled appearance of the bladder for which cystitis cannot be excluded; correlation with urinalysis is advised. No bowel obstruction or discrete evidence of acute bowel inflammatory changes. Unremarkable appendix. [facility] HCG QUALITATIVE, URINEon HCG ( test) Ql (U) Negative NEGATIVE [facility] LACTATE, BLOODon 08-02-2019 Lactate [Moles/Vol] 1.2 mmol/L [facility] LACTIC ACIDon 08-02-2019 Lactate [Moles/Vol] 1.2 mmol/L Normal 0.5-2.0 [facility] Comment on above: Performed By: #### L ACT #### Testing performed at [facility] [address] [place] [address] Otheron 08-02-2019 Interpretation and review of laboratory results Abnormal [facility] Interpretation and review of laboratory results Abnormal [facility] URINALYSIS, MACROon 08-02-20 19 Bilirubin Ql (U) Negative NEGATIVE [facility] Clarity (U) CLEAR CLEAR [facility] Color (U) YELLOW YELLOW [facility] Glucose Test strip (U) [Mass/Vol] Negative NEGATIVE mg/dl [facility] Hemoglobin Ql (U) MODERATE Abnormal NEGATIVE [facility] Ketones (U) [Mass/Vol] Negative NEGATIVE mg/dl [facility] Leukocyte esterase Test strip Ql (U) Negative NEGATIVE [facility] Nitrite Ql (U) Negative NEGATIVE [facility] pH (U) 6.0 [pH] [facility] Protein Ql (U) 30 mg/dl Abnormal NEGATIVE [facility] Specific gravity (U) [Rel density] >1.030 High [facility] Urobilinogen (U) [Mass/Vol] 1.0 [facility] URINE HCG QUALon 08-02-2019 Beta HCG ( test) Ql (U) Negative Normal NEGATIVE [facility] Comment on above: Performed By: #### U HCGT, UMAC, UMIC #### Testing performed at [address] [address] URINE MACROSCOPICon 08-02-20 19 Bilirubin Ql (U) Negative Normal NEGATIVE [facility] Comment on above: Performed By: #### U HCGT, UMAC, UMIC #### Testing performed at [address] [address] Clarity (U) CLEAR Normal CLEAR [facility] Comment on above: Performed By: #### U HCGT, UMAC, UMIC #### Testing performed at [address] [address] Color (U) YELLOW Normal YELLOW [facility] Comment on above: Performed By: #### U HCGT, UMAC, UMIC #### Testing performed at [address] [address] Glucose Ql (U) Negative Normal NEGATIVE [facility] Comment on above: Performed By: #### U HCGT, UMAC, UMIC #### Testing performed at [address] [address] pH (U) 6.0 [pH] Normal 5.0-7.0 [facility] Comment on above: Performed By: #### U HCGT, UMAC, UMIC #### Testing performed at [address] [address] Protein (U) [Mass/Vol] 30 mg/dL Abnormal NEGATIVE [facility] Comment on above: Performed By: #### U HCGT, UMAC, UMIC #### Testing performed at [address] [place] [address] URINE HEMOGLOBIN MODERATE Abnormal NEGATIVE [facility] Comment on above: Performed By: #### U HCGT, UMAC, UMIC #### Testing performed at [address] [address] URINE KETONE Negative Normal NEGATIVE [facility] Comment on above: Performed By: #### U HCGT, UMAC, UMIC #### Testing performed at [address] [address] URINE LEUKOTEST Negative [facility] Comment on above: Performed By: #### U HCGT, UMAC, UMIC #### Testing performed at [address] [place] [address] URINE NITRATES Negative Normal NEGATIVE [facility] Comment on above: Performed By: #### U HCGT, UMAC, UMIC #### Testing performed at [address] [address] URINE SPEC GRAVITY >1.030 High 1.010-1.025 [facility] Comment on above: Performed By: #### U HCGT, UMAC, UMIC #### Testing performed at [address] [address] Urobilinogen Qn (U) 1.0 {Levi'U}/dL Normal 0.2-1.0 [facility] Comment on above: Performed By: #### U HCGT, UMAC, UMIC #### Testing performed at [address] [address] URINE MICROSCOPICon 08-02-20 19 Bacteria LM.HPF (Urine sed) [#/Area] TRACE Abnormal NEGATIVE [facility] Comment on above: Performed By: #### U HCGT, UMAC, UMIC #### Testing performed at [address] [address] Casts LM.LPF (Urine sed) [#/Area] NONE Normal NONE [facility] Comment on above: Performed By: #### U HCGT, UMAC, UMIC #### Testing performed at [address] [address] CRYSTAL NONE Normal NONE [facility] Comment on above: Performed By: #### U HCGT, UMAC, UMIC #### Testing performed at [address] [address] Epithelial cells LM.HPF (Urine sed) [#/Area] TOO NUMEROUS TO COUNT Normal [facility] Comment on above: Performed By: #### U HCGT, UMAC, UMIC #### Testing performed at [address] [address] Mucus Ql (Urine sed) Negative Normal NEGATIVE [facility] Comment on above: Performed By: #### U HCGT, UMAC, UMIC #### Testing performed at [address] [place] [address] RBC (U) [#/Vol] 20 TO 30 [facility] Comment on above: Performed By: #### U HCGT, UMAC, UMIC #### Testing performed at [facility] [address] [place] [address] URINE COMMENT POSSIBLY CONTAMINATE D SPECIMEN, CULTURE MUST BE ORDERED SEPARATELY IF DEEMED NECESSARY. Normal [facility] Comment on above: Performed By: #### U HCGT, UMAC, IC #### Testing performed at [address] [address] WBC (U) [#/Vol] Negative Normal [facility]GATIVE [facility] Comment on above: Performed By: #### U HCGT, UMAC, UMIC #### Testing performed at [address] [address] Bacteria LM.HPF (Urine sed) [#/Area] TRACE Abnormal NEGATIVE [facility] H Casts LM.LPF (Urine sed) [#/Area] NONE NONE /LPF [facility] Crystals LM Nom (Urine sed) NONE NONE [facility] Epithelial cells LM Ql (Urine sed) TOO NUMEROUS TO COUNT /HPF [facility] TH Mucus Ql (Urine sed) Negative NEGATIVE [facility] RBC LM.HPF (Urine sed) [#/Area] 20 TO 30 NEGATIVE /HPF [facility] Urine sediment comments LM Dustin (Urine sed) POSSIBLY CONTAMINATED SPECIMEN, CULTURE MUST BE ORDERED SEPARATELY IF DEEMED NECESSARY. [facility] WBC LM.HPF (Urine sed) [#/Area] Negative NEGATIVE /HPF [facility] URINE CULTUREon 07-31-2019 Bacteria identified Cx Nom (U) SPECIMEN DESCRIPTION URINE CLEAN CATCH UA DIPSTICK NITRITE NEGATIVE * Result Note: LEUKOCYTE POSITIVE * CULTURE ESCHERICHIA COLI * Result Note: 50,000-100,000 C/C/ML * * Result Note: Testing performed at [place], [place] [address] * REPORT STATUS 07/31/2019 * Result Note: FINAL * ------- ORGANISM ESCHERICHIA COLI * Result Note: ESCHERICHIA COLI * METHOD YOON AMPICILLIN >=32 RESISTANT AMPICILLIN/SULBACTAM >=32 RESISTANT CEFTRIAXONE <=1 SUSCEPTIBLE CEFAZOLIN <=4 SUSCEPTIBLE IMIPENEM <=0.25 SUSCEPTIBLE GENTAMICIN <=1 SUSCEPTIBLE TRIMETH-SULFA <=20 SUSCEPTIBLE AMOXICILLIN/CLAVULANIC A 4 SUSCEPTIBLE NITROFURANTOIN <=16 SUSCEPTIBLE PIPERACILLIN/TAZOBACTAM <=4 SUSCEPTIBLE LEVOFLOXACIN <=0.12 SUSCEPTIBLE ESBL NEGATIVE CEFTAZIDIME <=[address] [facility] Comment on above: Performed By: #### A URNC #### Testing performed at [address] [address] Testing performed at [address] [address] HCG QUALITATIVE, URINEon HCG ( test) Ql (U) Negative NEGATIVE [facility] Otheron 07-28-2019 Interpretation and review of laboratory results Abnormal [facility] URINALYSIS, MACROon 07-28-20 19 Bilirubin Ql (U) Negative NEGATIVE [facility] Clarity (U) CLOUDY Abnormal CLEAR [facility] Color (U) YELLOW YELLOW [facility] Glucose Test strip (U) [Mass/Vol] Negative NEGATIVE mg/dl [facility] Hemoglobin Ql (U) MODERATE Abnormal NEGATIVE [facility] Ketones (U) [Mass/Vol] Negative NEGATIVE mg/dl [facility] Leukocyte esterase Test strip Ql (U) LARGE Abnormal NEGATIVE [facility] Nitrite Ql (U) Negative NEGATIVE [facility] pH (U) 6.0 [pH] [facility] Protein Ql (U) 100 mg/dl Abnormal NEGATIVE [facility] Specific gravity (U) [Rel density] 1.020 [facility] Urobilinogen (U) [Mass/Vol] 0.2 [facility] URINE HCG QUALon 07-28-2019 Beta HCG ( test) Ql (U) Negative Normal NEGATIVE [facility] Comment on above: Performed By: #### U HCGT, UMAC, UMIC #### Testing performed at [address] [address] URINE MACROSCOPICon 07-28-20 19 Bilirubin Ql (U) Negative Normal NEGATIVE [facility] Comment on above: Performed By: #### U HCGT, UMAC, UMIC #### Testing performed at [address] [address] Clarity (U) CLOUDY Abnormal CLEAR [facility] Comment on above: Performed By: #### U HCGT, UMAC, UMIC #### Testing performed at [address] [address] Color (U) YELLOW Normal YELLOW [facility] Comment on above: Performed By: #### U HCGT, UMAC, UMIC #### Testing performed at [address] [address] Glucose Ql (U) Negative Normal NEGATIVE [facility] Comment on above: Performed By: #### U HCGT, UMAC, UMIC #### Testing performed at [address] [address] pH (U) 6.0 [pH] Normal 5.0-7.0 [facility] Comment on above: Performed By: #### U HCGT, UMAC, UMIC #### Testing performed at [address] [address] Protein (U) [Mass/Vol] 100 mg/dL Abnormal NEGATIVE [facility] Comment on above: Performed By: #### U HCGT, UMAC, UMIC #### Testing performed at [address] [place] [address] URINE HEMOGLOBIN MODERATE Abnormal NEGATIVE [facility] Comment on above: Performed By: #### U HCGT, UMAC, UMIC #### Testing performed at [address] [place] [address] URINE KETONE Negative Normal NEGATIVE [facility] Comment on above: Performed By: #### U HCGT, UMAC, UMIC #### Testing performed at [address] [address] URINE LEUKOTEST LARGE Abnormal [facility] Comment on above: Performed By: #### U HCGT, UMAC, UMIC #### Testing performed at [address] [address] URINE NITRATES Negative Normal NEGATIVE [facility] Comment on above: Performed By: #### U HCGT, UMAC, UMIC #### Testing performed at [address] [address] URINE SPEC GRAVITY 1.020 Normal 1.010-1.025 [facility] Comment on above: Performed By: #### U HCGT, UMAC, UMIC #### Testing performed at [address] [address] Urobilinogen Qn (U) 0.2 {Levi'U}/dL Normal 0.2-1.0 [facility] Comment on above: Performed By: #### U HCGT, UMAC, UMIC #### Testing performed at [address] [address] URINE MICROSCOPICon 07-28-20 19 Bacteria LM.HPF (Urine sed) [#/Area] 4+ Abnormal NEGATIVE [facility] Comment on above: Performed By: #### U HCGT, UMAC, UMIC #### Testing performed at [address] [address] Casts LM.LPF (Urine sed) [#/Area] NONE Normal NONE [facility] Comment on above: Performed By: #### U HCGT, UMAC, UMIC #### Testing performed at [address] [address] CRYSTAL NONE Normal [facility] Comment on above: Performed By: #### U HCGT, UMAC, UMIC #### Testing performed at [address] [address] Epithelial cells LM.HPF (Urine sed) [#/Area] TOO NUMEROUS TO COUNT Normal [facility] Comment on above: Performed By: #### U HCGT, UMAC, UMIC #### Testing performed at [address] [address] Mucus Ql (Urine sed) TRACE Abnormal NEGATIVE [facility] Comment on above: Performed By: #### U HCGT, UMAC, UMIC #### Testing performed at [address] [address] RBC (U) [#/Vol] 10 TO 20 Normal NEGATIVE [facility] Comment on above: Performed By: #### U HCGT, UMAC, UMIC #### Testing performed at [address] [place] [address] URINE COMMENT REFLEX CULTURE PER ESTABLISHED CRITERIA. Normal [facility] Comment on above: Performed By: #### U HCGT, UMAC, UMIC #### Testing performed at [address] [place] [address] WBC (U) [#/Vol] TOO NUMEROUS TO COUNT Abnormal NEGATIVE [facility] Comment on above: Performed By: #### U HCGT, UMAC, UMIC #### Testing performed at [address] [place] [address] Bacteria LM.HPF (Urine sed) [#/Area] 4+ Abnormal NEGATIVE [facility] H Casts LM.LPF (Urine sed) [#/Area] NONE NONE /LPF [facility] Crystals LM Nom (Urine sed) NONE NONE [facility] Epithelial cells LM Ql (Urine sed) TOO NUMEROUS TO COUNT /HPF [facility] TH Mucus Ql (Urine sed) TRACE Abnormal NEGATIVE [facility] RBC LM.HPF (Urine sed) [#/Area] 10 TO 20 NEGATIVE /HPF [facility] Urine sediment comments LM Dustin (Urine sed) REFLEX CULTURE PER ESTABLISHED CRITERIA. [facility] WBC LM.HPF (Urine sed) [#/Area] TOO NUMEROUS TO COUNT Abnormal NEGATIVE /HPF [facility] Wet Prep, Genitalon 07-13-20 19 Direct Exam MANY BACTERIA Abnormal [place], [place] Direct Exam MODERATE YEAST Abnormal [place] Direct Exam MODERATE EPITHELIAL CELLS Abnormal [place] Direct Exam Few epithelials coat ed with bacteria resembling clue cells. Abnormal [place] Direct Exam NO TRICHOMONAS SEEN [place] Interpretation and review of laboratory results Abnormal [place] Special Requests NOT REPORTED [place] Specimen Description .VAGINA [place] WBC (Bld) [#/Vol] MODERATE WBC Abnormal [place] CBC Auto Differentialon 10-0 Basophils (Bld) [#/Vol] 0.00 10*3/uL [place] Basophils/100 WBC (Bld) 0 % 0 - 2 % [place] Differential Type YES [place] Eosinophils (Bld) [#/Vol] 0.30 10*3/uL [place] Eosinophils/100 WBC (Bld) 5 % 0 - 5 % [place] Erythrocyte distribution width (RBC) [Ratio] 13.0 % 12.1 - 15.2 % [place] Hematocrit (Bld) [Volume fraction] 38.5 % 36 - 46 % [place] Hemoglobin (Bld) [Mass/Vol] 13.1 g/dL 12 - 16 g/dL [place] Interpretation and review of laboratory results Abnormal [place] Lymphocytes (Bld) [#/Vol] 2.20 10*3/uL [place] Lymphocytes/100 WBC (Bld) 31 % 15 - 40 % [place] MCH (RBC) [Entitic mass] 30.6 pg 26 - 34 pg [place] MCHC (RBC) [Mass/Vol] 34.1 g/dL 31 - 3 7 g/dL [place] MCV (RBC) [Entitic vol] 89.9 fL 80 - 100 fL [place] Monocytes (Bld) [#/Vol] 0.60 10*3/uL [place] Monocytes/100 WBC (Bld) 9 % High 4 - 8 % [place] Platelet mean volume (Bld) [Entitic vol] NOT REPORTED 6 - 12 fL [place] Platelets (Bld) [#/Vol] 267 10*3/uL [place] Platelets (Bld) [#/Vol] NOT REPORTED [place] RBC (Bld) [#/Vol] 4.28 10*6/uL 4 - 5.2 m/uL [place] RBC morphology finding Nom (Bld) NOT REPORTED [place] Segmented neutrophils/100 WBC (Bld) 55 % 47 - 75 % [place] Segs Absolute 3.80 [place] WBC (Bld) [#/Vol] 6.9 10*3/uL [place] WBC (Bld) [#/Vol] NOT REPORTED per 100 WBC [facility] [place] WBC Morphology [facility]ED [facility] CT ABDOMEN PELVIS WO CONTRAS Ton 05-14-2019 -Negative CT for obstructive renal, ureteric or bladder calculi. -Nonobstructive bilateral renal calculi. -Mild diffuse urinary bladder wall thickening may be accentuated due to nondistention, correlate with UA to exclude underlying cystitis. -Normal appendix. -IUD grossly intact. [place] CT ABDOMEN PELVIS WO CONTRAST; DATED 05/14/2019 1:28 PM PDT INDICATION: Right-sided flank pain x2 days COMPARISON: None TECHNIQUE: Contiguous helical axial images of the abdomen and pelvis were obtained from dome of the diaphragm to ischial tuberosities, intravenous contrast not used. Coronal and sagittal reformatted images were generated. Oral contrast: Not used Dose reduction technique used: Automated exposure control and/or adjustment of the mA and/or KV according to patient size and/or use of iterative reconstruction technique. Quality of study: Adequate FINDINGS: [employer] View: Negative for acute findings Limited evaluation due to lack of IV contrast. Chest findings: Unremarkable. Visualized heart within normal limits. . Visualized ribs are normal. No evidence of free intraabdominal air. Aorta, Visualized Mesenteric Vessels, and IVC: Lumen cannot be evaluated due to lack of IV contrast. Liver: Liver contours are normal. No focal liver lesions are present. No evidence of intrahepatic or extrahepatic biliary dilation. Splenic, Mesenteric and Portal veins: Lumen cannot be evaluated due to lack of IV contrast. Gallbladder: Normal CBD: Normal Pancreas: Normal. Spleen: Normal. Kidneys: Nonobstructive 6 mm calculus in the inferior collecting system of the left kidney. Nonobstructive renal calculus in the inferior collecting system of the right kidney measuring 6 mm. No definite obstructive uropathy. Multiple punctate calcifications within the lower pelvis appear to be extraluminal of the ureter, likely represent phleboliths. Adrenal glands: Normal. Esophagus: Normal. Stomach: Normal. Duodenum, Small Bowel: Negative for acute findings. Large Bowel: Negative for acute findings Appendix: Normal Mesenteric and peritoneal surfaces: Normal. Lymph nodes: No evidence of retroperitoneal lymphadenopathy or significant mesenteric lymphadenopathy. PELVIS: No free fluid is seen in the pelvis. Urinary bladder: Mild thickening of the urinary bladder. Uterus and adnexa:: IUD visualized in appropriate positioning. No adnexal masses.. Bony Pelvis: Negative for acute findings. Lower thoracic and lumbar spine : Negative for acute findings Soft tissues: Metallic piercing over the umbilical region. No other acute findings. [facility] [place], [place] Arvind, [facility] Incoming Radiant Results From [employer] - 05/14/2019 4:[address] ABDOMEN PELVIS WO CONTRAST; DATED 05/14/2019 1:28 PM PDT INDICATION: Right-sided flank pain x2 days COMPARISON: None TECHNIQUE: Contiguous helical axial images of the abdomen and pelvis were obtained from dome of the diaphragm to ischial tuberosities, intravenous contrast not used. Coronal and sagittal reformatted images were generated. Oral contrast: Not used Dose reduction technique used: Automated exposure control and/or adjustment of the mA and/or KV according to patient size and/or use of iterative reconstruction technique. Quality of study: Adequate FINDINGS: [employer] View: Negative for acute findings Limited evaluation due to lack of IV contrast. Chest findings: Unremarkable. Visualized heart within normal limits. . Visualized ribs are normal. No evidence of free intraabdominal air. Aorta, Visualized Mesenteric Vessels, and IVC: Lumen cannot be evaluated due to lack of IV contrast. Liver: Liver contours are normal. No focal liver lesions are present. No evidence of intrahepatic or extrahepatic biliary dilation. Splenic, Mesenteric and Portal veins: Lumen cannot be evaluated due to lack of IV contrast. Gallbladder: Normal CBD: Normal Pancreas: Normal. Spleen: Normal. Kidneys: Nonobstructive 6 mm calculus in the inferior collecting system of the left kidney. Nonobstructive renal calculus in the inferior collecting system of the right kidney measuring 6 mm. No definite obstructive uropathy. Multiple punctate calcifications within the lower pelvis appear to be extraluminal of the ureter, likely represent phleboliths. Adrenal glands: Normal. Esophagus: Normal. Stomach: Normal. Duodenum, Small Bowel: Negative for acute findings. Large Bowel: Negative for acute findings Appendix: Normal Mesenteric and peritoneal surfaces: Normal. Lymph nodes: No evidence of retroperitoneal lymphadenopathy or significant mesenteric lymphadenopathy. PELVIS: No free fluid is seen in the pelvis. Urinary bladder: Mild thickening of the urinary bladder. Uterus and adnexa:: IUD visualized in appropriate positioning. No adnexal masses.. Bony Pelvis: Negative for acute findings. Lower thoracic and lumbar spine : Negative for acute findings Soft tissues: Metallic piercing over the umbilical region. No other acute findings. IMPRESSION: -Negative CT for obstructive renal, ureteric or bladder calculi. -Nonobstructive bilateral renal calculi. -Mild diffuse urinary bladder wall thickening may be accentuated due to nondistention, correlate with UA to exclude underlying cystitis. -Normal appendix. -IUD grossly intact. [place] Comprehensive Metabolic Pane l w/ Reflex to MGon 05-14-2019 Albumin [Mass/Vol] 4.3 g/dL 3.5 - 5.2 g/dL [place] Albumin/Globulin [Mass ratio] NOT REPORTED [place] ALP [Catalytic activity/Vol] 62 U/L 35 - 104 U/L [place] ALT [Catalytic activity/Vol] 12 U/L 5 - 33 U/L [place] Anion gap [Moles/Vol] 9 mmol/L 9 - 17 mmol/L [place] AST [Catalytic activity/Vol] 15 U/L <32 [place] Bilirubin Ql (U) 0.45 mg/dL 0.3 - 1.2 mg/dL [place] Bun/Cre Ratio 13 [place] Calcium [Mass/Vol] 9.8 mg/dL 8.6 - 10. 4 mg/dL [place] Chloride [Moles/Vol] 104 mmol/L 98 - 10 7 mmol/L [place] CO2 [Moles/Vol] 25 mmol/L 20 - 31 mmol/L [place] Creatinine [Mass/Vol] 0.69 mg/dL 0.5 - 0.9 mg/dL [place] GFR >60 >60 mL/min [place] GFR Non- >60 >60 mL/min [place] GFR/1.73 sq M predicted among non-blacks MDRD (S/P/Bld) [Vol rate/Area] [place] Comment on above: Average GFR for 30-3 9 years old: 107 mL/min/1.73sq m Chronic Kidney Disease: <60 mL/min/1.73sq m Kidney failure: <15 mL/min/1.73sq m eGFR calculated using average adult body mass. Additional eGFR calculator available at: http://www.[employer]/multiple_crcl_2012.htm GFR/1.73 sq M predicted among non-blacks MDRD (S/P/Bld) [Vol rate/Area] NOT REPORTED [place] Glucose [Mass/Vol] 108 mg/dL High 70 - 99 mg/dL [place] Interpretation and review of laboratory results Abnormal [place] Potassium [Moles/Vol] 3.8 mmol/L 3.7 - 5.3 mmol/L [place] Protein [Mass/Vol] 7.5 g/dL 6.4 - 8.3 g/dL [place] Sodium [Moles/Vol] 138 mmol/L 135 - 144 mmol/L [place] Urea nitrogen [Mass/Vol] 9 mg/dL 6 - 20 mg/dL [place] HCG Qualitative, Serumon hCG Qual Negative NEGATIVE [place] Comment on above: Specimens with hCG l evels near the threshold of the test (25 mIU/mL) may give a negative or indeterminate result. In such cases, another test should be performed with a new specimen in 48-72 hours. If early is suspected clinically in this setting, correlation with quantitative serum b-hCG level is suggested. [facility] has confirmed the use of plasma for this test. This has not been cleared or approved by the U.S. Food and Drug Administration. The FDA has determined that such clearance is not necessary. Lipaseon 05-14-2019 Lipase [Catalytic activity/Vol] 46 U/L 13 - 60 U/L [place] Microscopic Urinalysison Amorphous, UA NOT REPORTED None [facility] [place] Bacteria, UA 4+ Abnormal None [place] Casts UA NOT REPORTED /LPF [place] Crystals UA 1+ CALCIUM OXALATE Abnormal None /HPF [place] Epithelial Cells UA 2 TO 5 /HPF [place] Interpretation and review of laboratory results Abnormal [place] Mucus, UA NOT REPORTED None [place] Other Observations UA NOT REPORTED NOT REQ. M [place] RBC (U) [#/Vol] 5 TO 10 [facility] [place] Renal Epithelial, Urine NOT REPORTED 0 /HPF [place] Trichomonas, UA NOT REPORTED None [facility] Charity [place] WBC, UA 10 TO 20 0 /HPF [place] Yeast, UA NOT REPORTED None [place] Otheron 05-14-2019 Immature granulocytes (Bld) [#/Vol] NOT REPORTED [place] Urinalysis, reflex to micros copicon 05-14-2019 Bilirubin Urine Negative NEGATIVE [place] Color, UA YELLOW YELLOW [place] Glucose, Ur Negative NEGATIVE [place] Interpretation and review of laboratory results Abnormal [place] Ketones Ql (U) Negative NEGATIVE [place] Leukocyte esterase Test strip Ql (U) 2+ Abnormal NEGATIVE [place] Nitrite, Urine Positive Abnormal NEGATIVE [place] pH, UA 6.0 [place] Protein (U) [Mass/Vol] 1+ Abnormal NEGATIVE [place] Specific Bertha, UA 1.020 [place] Turbidity UA CLOUDY Abnormal CLEAR [place] Urinalysis Comments [place] Urine Hgb 3+ Abnormal NEGATIVE [place] Urobilinogen, Urine Normal Normal [place] Vital Signs Date Time Vital Sign Value Performing Clinician Adrianna garza 02-18-2024 19:00-0400 Diastolic blood pressure 62 mm[Hg] Marlen Hernandez DO Work Phone: [facility] 02-18-2024 19:00-0400 Heart rate 75 /min Marlen Hernandez DO Work Phone: [facility] [employer] [facility] 02-18-2024 19:00-0400 Respiratory rate 16 /min Marlen Hernandez DO Work Phone: [employer] 02-18-2024 19:00-0400 SaO2% (BldA) [Mass fraction] 96 % Marlen Hernandez DO Work Phone: [employer] 02-18-2024 19:00-0400 Systolic blood pressure 110 mm[Hg] Marlen Hernandez DO Work Phone: [employer] 02-18-2024 17:13-0400 Body temperature 97.3 [degF] Marlen Hernandez DO Work Phone: [employer] 02-18-2024 12:49-0400 Body height 165.1 cm Marlen Hernandez DO Work Phone: [employer] 02-18-2024 12:49-0400 Body mass index (BMI) [Ratio] 34.41 kg/m2 Marlen Hernandez DO Work Phone: [employer] 02-18-2024 12:49-0400 Body weight 93.8 kg Marlen Hernandez DO Work Phone: [employer] 11-29-2023 19:49-0400 Body temperature 97.59 [degF] Artie Burden MD Work Phone: [employer] 11-29-2023 19:49-0400 Diastolic blood pressure 71 mm[Hg] Artie Burden MD Work Phone: [employer] 11-29-2023 19:49-0400 Heart rate 89 /min Artie Burden MD Work Phone: [employer] 11-29-2023 19:49-0400 Respiratory rate 16 /min Artie Burden MD Work Phone: [employer] 11-29-2023 19:49-0400 SaO2% (BldA) [Mass fraction] 96 % Artie Burden MD Work Phone: [employer] 11-29-2023 19:49-0400 Systolic blood pressure 115 mm[Hg] Artie Burden MD Work Phone: [facility] 11-20-2022 09:00-0400 Diastolic blood pressure 60 mm[Hg] Jose Aden MD Work Phone: [facility] 11-20-2022 09:00-0400 Heart rate 72 /min Jose Aden MD Work Phone: [facility] 11-20-2022 09:00-0400 Respiratory rate 18 /min Jose Aden MD Work Phone: [facility] 11-20-2022 09:00-0400 SaO2% (BldA) [Mass fraction] 98 % Jose Aden MD Work Phone: [facility] 11-20-2022 09:00-0400 Systolic blood pressure 108 mm[Hg] Jose Aden MD Work Phone: [facility] 11-20-2022 03:03-0400 Body height 165.1 cm Jose Aden MD Work Phone: [facility] 11-20-2022 03:02-0400 Body temperature 98.29 [degF] Jose Aden MD Work Phone: [facility] 11-03-2022 09:52-0400 Body mass index (BMI) [Ratio] 33.28 kg/m2 Ninfa Long DO Work Phone: [employer] [facility] 11-03-2022 09:52-0400 Body temperature 98.2 [degF] Ninfa Long DO Work Phone: [employer] 11-03-2022 09:52-0400 Body weight 90.72 kg Ninfa Long DO Work Phone: [employer] [facility] 11-03-2022 09:52-0400 Diastolic blood pressure 59 mm[Hg] Ninfa Long DO Work Phone: [employer] [facility] 11-03-2022 09:52-0400 Heart rate 76 /min Ninfa Long DO Work Phone: [facility] [employer] 11-03-2022 09:52-0400 Respiratory rate 16 /min Ninfa Long DO Work Phone: [facility] 11-03-2022 09:52-0400 SaO2% (BldA) [Mass fraction] 100 % Ninfa Long DO Work Phone: [facility] [employer] 11-03-2022 09:52-0400 Systolic blood pressure 128 mm[Hg] Ninfa Long DO Work Phone: [facility] 12-26-2021 15:47-0400 Body temperature 98.01 [degF] Marlen Hernandez DO Work Phone: [facility] [employer] 12-26-2021 15:47-0400 Diastolic blood pressure 59 mm[Hg] Marlen Prattg DO Work Phone: [facility] [employer] 12-26-2021 15:47-0400 Heart rate 66 /min Marlenyuliana Prattg DO Work Phone: [facility] [employer] 12-26-2021 15:47-0400 Respiratory rate 18 /min Marlen Prattg DO Work Phone: [facility] [employer] 12-26-2021 15:47-0400 SaO2% (BldA) [Mass fraction] 96 % Marlen Prattg DO Work Phone: [facility] [employer] 12-26-2021 15:47-0400 Systolic blood pressure 101 mm[Hg] Marlen Prattg DO Work Phone: [facility] [employer] 12-26-2021 14:00-0400 Body height 165.1 cm Marlen Prattg DO Work Phone: [facility] [employer] 12-26-2021 14:00-0400 Body mass index (BMI) [Ratio] 34.61 kg/m2 Marlen Hernandez DO Work Phone: [facility] 12-26-2021 14:00-0400 Body weight 94.35 kg Marlen Hernandez DO Work Phone: [facility] 08-25-2020 17:50-0500 BMI (Body Mass Index) 33.66 kg/m2 Joseline LoweJobHoreca [facility], [place] 08-25-2020 17:50-0500 Body Temperature 98.49 [degF] [facility] [place] 08-25-2020 17:50-0500 Body weight 86.18 kg Joseline MynorSankaty [employer] [facility] , [place] 08-25-2020 17:50-0500 BP Diastolic 71 mm[Hg] [facility] [place] 08-25-2020 17:50-0500 BP Systolic 106 mm[Hg] [facility] [place] 08-25-2020 17:50-0500 Height 160 cm [facility] [place] 08-25-2020 17:50-0500 Pulse (Heart Rate) 70 /min [facility] [place] 08-25-2020 17:50-0500 Pulse Oximetry 100 % [facility] [place] 08-25-2020 17:50-0500 Respiratory Rate 20 /min [facility], [place] 05-11-2020 00:15-0400 BP Diastolic 61 mm[Hg] [facility] 05-11-2020 00:15-0400 BP Systolic 105 mm[Hg] [facility] 05-11-2020 00:15-0400 Pulse (Heart Rate) 101 /min [facility] 05-11-2020 00:15-0400 Pulse Oximetry 98 % [facility] 05-11-2020 00:15-0400 Respiratory Rate 20 /min [facility] 05-10-2020 22:43-0400 BMI (Body Mass Index) 28.29 kg/m2 [facility] 05-10-2020 22:43-0400 Body Temperature 97.59 [degF] [facility] 05-10-2020 22:43-0400 Body weight 77.11 kg [facility] 05-10-2020 22:43-0400 Height 165.1 cm [facility] 04-25-2020 19:08-0400 BMI (Body Mass Index) 27.46 kg/m2 [facility] 04-25-2020 19:08-0400 Body Temperature 98.29 [degF] [facility] 04-25-2020 19:08-0400 Body weight 74.84 kg [facility] [place] 04-25-2020 19:08-0400 Height 165.1 cm [facility] [place] 04-25-2020 19:08-0400 Pulse (Heart Rate) 83 /min [facility] 04-25-2020 19:08-0400 Pulse Oximetry 99 % [facility] 04-25-2020 19:08-0400 Respiratory Rate 16 /min [facility] [place] 10-31-2019 08:23-0400 Body Temperature 98.49 [degF] Preeti Garzon [facility] 10-31-2019 08:23-0400 BP Diastolic 79 mm[Hg] Preeti Garzon [facility] 10-31-2019 08:23-0400 BP Systolic 124 mm[Hg] Preeti Garzon [facility] 10-31-2019 08:23-0400 Pulse (Heart Rate) 66 /min Preeti Garzon [facility] 10-31-2019 08:23-0400 Pulse Oximetry 98 % Preeti Garzon [facility] 10-22-2019 19:41-0400 Respiratory Rate 14 /min Preeti Garzon [facility] 10-22-2019 19:34-0400 Body Temperature 98.1 [degF] Preeti Garzon [facility] 10-22-2019 19:34-0400 BP Diastolic 62 mm[Hg] Preeti Garzon [facility] 10-22-2019 19:34-0400 BP Systolic 101 mm[Hg] Preeti Garzon [facility] 10-22-2019 19:34-0400 Pulse (Heart Rate) 75 /min Preeti Garzon [facility] 10-22-2019 19:34-0400 Pulse Oximetry 95 % Preeti Garzon [facility] 10-21-2019 16:00-0400 BMI (Body Mass Index) 27.51 kg/m2 Preeti Garzon [facility] 10-21-2019 16:00-0400 Body weight 75 kg Preeti Garzon [facility] 10-21-2019 16:00-0400 Height 165.1 cm Preeti Garzon [facility] 10-21-2019 13:47-0400 BP Diastolic 72 mm[Hg] Eloy Escalante [facility] 10-21-2019 13:47-0400 BP Systolic 110 mm[Hg] Eloy Escalante [facility] 10-21-2019 13:47-0400 Pulse (Heart Rate) 63 /min mary [facility] 10-21-2019 13:47-0400 Pulse Oximetry 100 % Eloy [facility] 10-21-2019 13:47-0400 Respiratory Rate 18 /min mary [facility] 10-21-2019 09:02-0400 BMI (Body Mass Index) 27.46 kg/m2 mary [facility] 10-21-2019 09:02-0400 Body Temperature 98.29 [degF] Eloy [facility] 10-21-2019 09:02-0400 Body weight 74.84 kg [facility] 10-21-2019 09:02-0400 Height 165.1 cm mary [facility] 08-02-2019 22:30-0500 Body Temperature 102.6 [degF] [facility] 08-02-2019 22:30-0500 BP Diastolic 58 mm[Hg] [facility] 08-02-2019 22:30-0500 BP Systolic 102 mm[Hg] [facility] 08-02-2019 22:30-0500 Pulse (Heart Rate) 105 /min [facility] 08-02-2019 22:30-0500 Pulse Oximetry 100 % [facility] 08-02-2019 22:30-0500 Respiratory Rate 20 /min [place] [facility] 08-02-2019 20:10-0500 Height 165.1 cm Carlos [facility] 07-28-2019 19:25-0500 Body Temperature 98.49 [degF] [facility] 07-28-2019 19:25-0500 BP Diastolic 66 mm[Hg] [facility] 07-28-2019 19:25-0500 BP Systolic 111 mm[Hg] [facility] 07-28-2019 19:25-0500 Pulse (Heart Rate) 99 /min [facility] 07-28-2019 19:25-0500 Pulse Oximetry 97 % [facility] 07-28-2019 19:25-0500 Respiratory Rate 16 /min [facility] 07-13-2019 15:55-0500 BMI (Body Mass Index) 29.95 kg/m2 John Tucker [facility] 07-13-2019 15:55-0500 Body Temperature 98.29 [degF] John Tucker [employer] [facility], [place] 07-13-2019 15:55-0500 Body weight 81.65 kg John Tucker [facility] [place] 07-13-2019 15:55-0500 BP Diastolic 49 mm[Hg] John [facility] , [place] 07-13-2019 15:55-0500 BP Systolic 107 mm[Hg] John Tucker [facility] [place] 07-13-2019 15:55-0500 Height 165.1 cm John Tucker [facility] [place] 07-13-2019 15:55-0500 Pulse (Heart Rate) 77 /min John [facility] 07-13-2019 15:55-0500 Pulse Oximetry 98 % John Tucker [facility] [place] 07-13-2019 15:55-0500 Respiratory Rate 16 /min John [employer] [facility], [place] 05-14-2019 15:19-0400 BMI (Body Mass Index) 27.79 kg/m2 Italia Vernon [facility] 05-14-2019 15:19-0400 Body Temperature 98.29 [degF] Italia Vernon [facility] 05-14-2019 15:19-0400 Body weight 75.75 kg Italia Vernon [facility] 05-14-2019 15:19-0400 BP Diastolic 63 mm[Hg] Italia Vernon [facility] 05-14-2019 15:19-0400 BP Systolic 100 mm[Hg] Italia Vernon [facility] 05-14-2019 15:19-0400 Height 165.1 cm Italia Vernon [facility] 05-14-2019 15:19-0400 Pulse (Heart Rate) 67 /min [facility]alia Vernon [facility], [place] 05-14-2019 15:19-0400 Pulse Oximetry 98 % [facility] 05-14-2019 15:19-0400 Respiratory Rate 16 /min [facility] Encounters Encounter Date Encounter Type Care Provider Facility Start: 09-19-2024 End: 09-21-2024 ambulatory NGUYEN HERNANDEZ [facility] Start: 09-19-2024 End: 09-21-2024 Subsequent hospital visit by physician Nguyen Hernandez APRN - CNM Work Phone: [facility] Ultrasound Comment on above: Abnormal mammogram o f left breast Start: 08-29-2024 ambulatory NGUYEN JEREZELLE DAVID [facility] Start: 08-07-2024 End: 08-09-2024 ambulatory NGUYEN HERNANDEZ [facility] Start: 08-07-2024 End: 08-09-2024 Subsequent hospital visit by physician Nguyen Hernandez SEED CLEANER OPERATOR - CNM Work Phone: [facility] Mammography Comment on above: Screening mammogram, encounter for Start: 07-09-2024 End: 07-09-2024 Office outpatient visit 15 minutes Ioana Clinton MD Work Phone: [facility] Comment on above: Graves' orbitopathy - Both Eyes (Primary Dx) Start: 06-17-2024 End: 06-17-2024 ambulatory NGUYEN JEREZELLE DAVID [facility] Start: 06-17-2024 End: 06-17-2024 Subsequent hospital visit by physician Desi Manjarrez MD Work Phone: [facility] Laboratory Comment on above: Screening for malign ant neoplasm of cervix Start: 04-02-2024 End: 04-02-2024 Office consultation new/estab patient 60 min Ioana Clinton MD Work Phone: [facility] Comment on above: Graves' orbitopathy - Both Eyes (Primary Dx) Start: 04-02-2024 ambulatory [facility] Facility:[facility] Start: 02-18-2024 End: 02-18-2024 ambulatory MARLEN F JEANNE HERNANDEZ [facility] Start: 02-18-2024 End: 02-18-2024 Subsequent hospital visit by physician Marlen Hernandez DO Work Phone: [facility] OR Comment on above: Postoperative pain ( Primary Dx); Uterine leiomyoma, unspecified location Start: 01-30-2024 End: 01-30-2024 ambulatory [facility] Start: 01-22-2024 End: 01-22-2024 Evaluation and management of inpatient DANIELA Stacy [facility] Start: 01-21-2024 End: 01-22-2024 [facility] Start: 01-09-2024 End: 01-09-2024 [facility] Start: 01-09-2024 Encounter for other preprocedural examination [facility] Start: 12-06-2023 End: 12-06-2023 [facility] Start: 11-29-2023 End: 11-29-2023 Emergency department patient visit ARTIE BURDEN [facility] Start: 11-29-2023 End: 11-29-2023 Emergency department patient visit Artie Burden MD Work Phone: [facility] Emergency Medicine Start: 11-24-2023 [facility] Start: 11-12-2023 End: 11-13-2023 ambulatory Desi Manjarrez MD Facility:[facility] Start: 10-26-2023 ambulatory Carlos Rogers acility:[facility] Start: 10-24-2023 ambulatory Carlos Dangelo MD F acility:[facility] Start: 09-18-2023 End: 09-18-2023 Subsequent hospital visit by physician Desi Manjarrez MD Work Phone: [facility] Laboratory Start: 11-20-2022 End: 11-20-2022 ambulatory [facility]OLINE F[facility] Start: 11-20-2022 End: 11-20-2022 Emergency department patient visit DESI Baugh [facility] Start: 11-20-2022 End: 11-20-2022 Emergency department patient visit Jose Aden MD Work Phone: [facility] Emergency Medicine Start: 11-03-2022 End: 11-03-2022 Emergency department patient visit Ninfa Long DO Work Phone: [facility] ED Comment on above: Vaginal bleeding in (Primary Dx) Start: 10-04-2022 End: 10-04-2022 Subsequent hospital visit by physician Desi Manjarrez MD Work Phone: [facility] Laboratory Start: 09-28-2022 End: 09-28-2022 Subsequent hospital visit by physician Desi Manjarrez MD Work Phone: [facility] Laboratory Start: 08-02-2022 End: 08-02-[address] DESI MANJARREZ Facility: Start: 12-26-2021 End: 12-26-2021 Subsequent hospital visit by physician Marlen Hernandez DO Work Phone: [facility] OR Start: 07-05-2021 End: 07-05-2021 Subsequent hospital visit by physician Desi Manjarrez MD Work Phone: [facility] Laboratory Comment on above: Menorrhagia with reg ular cycle Start: 08-26-2020 End: 08-26-2020 Subsequent [facility] Comment on above: Episode of heavy vag inal bleeding Start: 08-25-2020 End: 08-25-2020 Emergency department patient visit [facility] Start: 08-25-2020 End: 08-25-2020 Emergency department patient visit Joseline Cadet Work Phone: [facility] ED Comment on above: DUB (dysfunctional u terine bleeding) (Primary Dx); Iron deficiency anemia, unspecified iron deficiency anemia type Start: 05-13-2020 End: 05-13-2020 Subsequent hospital visit by physician Dsei Manjarrez [facility] Laboratory Comment on above: Screening for cervic al cancer Start: 05-11-2020 End: 05-11-2020 Emergency department patient visit ROB NG [facility] Start: 05-10-2020 End: 05-11-2020 Emergency department patient visit Rob Ng Work Phone: [facility] Emergency Department Comment on above: Allergic reaction to drug, initial encounter (Primary Dx); Acute UTI Start: 04-25-2020 End: 04-25-2020 Emergency department patient visit DESI M [facility] Start: 04-25-2020 End: 04-25-2020 Emergency department patient visit Italia Vernon Work Phone: [facility] ED Comment on above: Flank pain (Primary Dx); History of kidney stones Start: 10-31-2019 End: 10-31-2019 Patient encounter procedure PREETI GARZON [facility] Start: 10-31-2019 End: 10-31-2019 Patient encounter procedure Preeti Garzon Work Phone: [facility] Comment on above: Ureteral stone (Prim carmen Dx) Start: 10-21-2019 End: 10-22-2019 Subsequent hospital visit by physician Preeti Garzon Work Phone: [facility] [address] Comment on above: Left ureteral stone (Primary Dx) Start: 10-21-2019 End: 10-22-2019 Patient encounter procedure PREETI GARZON [facility] Start: 10-21-2019 End: 10-21-2019 Emergency department patient visit ELOY ESCALANTE [facility] Start: 10-21-2019 End: 10-21-2019 Emergency department patient visit Eloy Escalante Work Phone: [facility] Emergency Department Comment on above: Ureteral stone with hydronephrosis (Primary Dx) Start: 08-02-2019 End: 08-02-2019 Emergency department patient visit Carlos Mckeon Josselintheodora Work Phone: [facility] Emergency Department Start: 07-28-2019 End: 07-28-2019 Emergency department patient visit Howard Hunter Work Phone: [facility] Emergency Department Start: 07-13-2019 End: 07-13-2019 Emergency department patient visit John Tucker Work Phone: [facility] ED Comment on above: Vaginal yeast infect ion (Primary Dx) Start: 05-14-2019 End: 05-14-2019 Emergency department patient visit Italia Vernon Work Phone: [facility] ED Comment on above: Acute cystitis with hematuria (Primary Dx); Right flank pain; Kidney stone Start: 09-06-2017 End: 09-06-2017 Emergency department patient visit PROVIDER UNKNOWN Facility:[facility] [employer] Procedures Date Procedure Procedure Detail Performing Clinician Start: 09-19-2024 Us breast uni real time with image limited Nguyen Hernandez SEED CLEANER OPERATOR - [employer] Work Phone: Start: 09-19-2024 Diagnostic mammography computer-aided detcj uni Nguyenpeyman JerezAnkuldimas Hernandez SEED CLEANER OPERATOR - [employer] Work Phone: Start: 08-07-2024 Screening mammography bi 2-view breast inc cad Nguyen Nakul Hernandez SEED CLEANER OPERATOR - [employer] Work Phone: Start: 06-17-2024 Microscopic observation [Identifier] in Cervix by Cyto stain Nguyen David SEED CLEANER OPERATOR - [employer] Work Phone: Start: 04-02-2024 Visual field xm uni/bi w/interp extended exam Ioana Clinton MD Work Phone: Start: 02-18-2024 Gonadotropin chorionic qualitative Marlen Hernandez DO Work Phone: Start: 11-29-2023 Ct abdomen & pelvis w/o contrast material Artie Burden MD Work Phone: Start: 11-29-2023 Gonadotropin chorionic qualitative Artie Burden MD Work Phone: Start: 11-29-2023 Urinalysis microscopic only Artie mckeon MD Work Phone: Start: 11-29-2023 Urinalysis, reagent strip without microscopy Artie Burden MD Work Phone: Start: 09-18-2023 Comprehensive metabolic panel Desi Manjarrez MD Work Phone: Start: 09-18-2023 Lipid panel Desi Manjarrez MD Work Phone: Start: 11-20-2022 Us preg uterus real time w/image dcmtn transvag Jose Aden MD Work Phone: Start: 11-20-2022 Complete blood count with white cell differential, automated Jose Aden MD Work Phone: Start: 11-20-2022 Comprehensive metabolic panel Jose noyola MD Work Phone: Start: 11-03-2022 Antibody screen Ninfa Long DO Work Phone: Start: 11-03-2022 Blood typing serologic abo Ninfa J Iqb al DO Work Phone: Start: 11-03-2022 Gonadotropin chorionic quantitative Ninfa J Long DO Work Phone: Start: 11-03-2022 Urinalysis microscopic only Ninfa J Iq bal DO Work Phone: Start: 11-03-2022 Urnls dip stick/tablet rgnt auto w/o microscopy Ninfa J Long DO Work Phone: Start: 09-28-2022 Comprehensive metabolic panel Desi Manjarrez MD Work Phone: Start: 09-28-2022 Lipid panel Desi Manjarrez MD Work Phone: Start: 05-17-2021 Microscopic observation [Identifier] in Cervix by Cyto stain Desi Manjarrez MD Work Phone: Start: 08-26-2020 Blood count complete auto&auto difrntl wbc Nguyen Nakul Hernandez Work Phone: Start: 08-25-2020 Assay of thyroid stimulating hormone tsh Joseline Cadet Work Phone: Start: 08-25-2020 BASIC METABOLIC PANEL W/ REFLEX TO MG FOR LOW K Joseline Cadet Work Phone: Start: 08-25-2020 Blood count complete auto&auto difrntl wbc Joseline Cadet Work Phone: Start: 08-25-2020 Gonadotropin chorionic qualitative Joseline Cadet Work Phone: Start: 08-25-2020 Smr prim src wet mount nfct agt Joseline Cadet Work Phone: Start: 05-10-2020 CT of entire head Rob Ng Work Phone: Start: 05-10-2020 CT of urinary tract Rob Ng Work Phone: Start: 05-10-2020 Choriogonadotropin ( test) [Presence] in Urine [facility] Start: 05-10-2020 Urnls dip stick/tablet rgnt auto w/o microscopy [facility] Start: 05-10-2020 Basic metabolic panel calcium ionized [facility] Start: 05-10-2020 Blood count complete auto&auto difrntl wbc Rob Ng Work Phone: Start: 04-25-2020 Blood count complete auto&auto difrntl wbc DESI HOY Start: 04-25-2020 Comprehensive metabolic panel DESI HO Y Start: 04-25-2020 Culture bacterial quanttative colony count urine DESI HOY Start: 04-25-2020 Urinalysis microscopic only DESI HOY Start: 04-25-2020 Urine test visual color cmprsn meths DESI HOY Start: 04-25-2020 Urnls dip stick/tablet rgnt auto w/o microscopy DESI HOY Start: 04-25-2020 BASIC METABOLIC PANEL W/ REFLEX TO MG FOR LOW K Italia Vernon Work Phone: Start: 04-25-2020 Blood count complete auto&auto difrntl wbc Italia Baugh Saulo Work Phone: Start: 04-25-2020 Urinalysis microscopic only Italia Vernon Work Phone: Start: 04-25-2020 Urine test visual color cmprsn meths Italia Vernon Work Phone: Start: 04-25-2020 Urnls dip stick/tablet rgnt auto w/o microscopy Italia Baugh Saulo Work Phone: Start: 10-31-2019 CYSTOSCOPY Preeti Ardon on Work Phone: Start: 10-22-2019 AUTOPAP Florentino Noble h Work Phone: Start: 10-22-2019 CPAP / BIPAP TITRATE Florentino Coley Work Phone: Start: 10-22-2019 Retrograde pyelogram Preeti contreras Work Phone: Start: 10-22-2019 XR OR FLUOROSCOPY TIME Preeti Evans udben Work Phone: Start: 10-22-2019 Choriogonadotropin ( test) [Presence] in Urine Preeti Garzon Work Phone: Start: 10-22-2019 Radiography of juhnxd-[id number]-[id number] Preeti Garzon Work Phone: Start: 10-21-2019 Urinalysis Eloy Escalante Work Phone: Start: 10-21-2019 CT of urinary tract Eloy Escalante Work Phone: Start: 10-21-2019 Basic metabolic 2000 panel - Serum or Plasma Eloy Escalante Work Phone: Start: 10-21-2019 Choriogonadotropin.beta subunit ( test) [Presence] in Serum or Plasma Eloy Escalante Work Phone: Start: 10-21-2019 Complete blood count with white cell differential, automated Eloy Escalante Work Phone: Start: 10-21-2019 Complete blood count with white cell differential, manual Eloy Escalante Work Phone: Start: 10-21-2019 Hepatic function 2000 panel - Serum or Plasma Eloy Escalante Work Phone: Start: 10-21-2019 LAVENDER TOP Eloy Escalante Work Phone: Start: 10-21-2019 LIGHT BLUE TOP Eloy Escalante Work Phone: Start: 10-21-2019 LIGHT GREEN TOP Eloy Escalante Work Phone: Start: 10-21-2019 Lipase [Enzymatic activity/volume] in Serum or Plasma Eloy Escalante Work Phone: Start: 08-03-2019 CT of abdomen and pelvis Carlos Smith Work Phone: Start: 08-03-2019 Choriogonadotropin ( test) [Presence] in Urine Carlos Smith Work Phone: Start: 08-03-2019 Urinalysis microscopic only Carlos Mckeon Es cue Work Phone: Start: 08-03-2019 URINALYSIS, MACRO Carlos Smith Work Phone: Start: 08-03-2019 Assay of lactate Carlos Smith Work Phone: Start: 08-03-2019 CBC, EDIF, PLATELET Carlos Smith Work Phone: Start: 08-03-2019 Creatinine blood Carlos Smith Work Phone: Start: 07-29-2019 Choriogonadotropin ( test) [Presence] in Urine Howard Hunter Work Phone: Start: 07-29-2019 Urinalysis microscopic only Howard Boogie ins Work Phone: Start: 07-29-2019 URINALYSIS, MACRO Howard Hunter Work Phone: Start: 07-13-2019 Smr prim src wet mount nfct agt John Garrett Work Phone: Start: 05-14-2019 Ct abdomen & pelvis w/o contrast material Italia Vernon Work Phone: Start: 05-14-2019 Assay of lipase Italia Vernon Work Phone: Start: 05-14-2019 Blood count complete auto&auto difrntl wbc Italia Vernon Work Phone: Start: 05-14-2019 Gonadotropin chorionic qualitative Italia Vernon Work Phone: Start: 05-14-2019 Urinalysis microscopic only Italia Vernon Work Phone: Start: 05-14-2019 Urnls dip stick/tablet rgnt auto w/o microscopy Italia Vernon Work Phone: Start: 01-16-2018 Microscopic observation [Identifier] in Cervix by Cyto stain Preeti Garzon Plan of Treatment Date Care Activity Detail Author Start: 06-17-2029 Screening for malign ant neoplasm of cervix [facility] Start: 09-18-2028 Lipid panel Lipids [facility] Start: 09-28-2027 Lipid panel Lipids [facility] Start: 06-17-2027 Screening for malign ant neoplasm of cervix Pap smear [facility] Start: 09-19-2026 Screening for malign ant neoplasm of breast Breast cancer screen [facility] Start: 08-07-2026 Screening for malign ant neoplasm of breast Breast cancer screen [facility] Start: 05-17-2026 Screening for malign ant neoplasm of cervix [facility] Start: 06-18-2025 End: 06-18-2025 Patient encounter procedure 06/18/2025 1:45 PM EST Office Visit [facility] [address] [place] [address] Nguyen Hernandez APRN - CN[address] [place] [address] yearly [facility] Comment on above: yearly Start: 05-13-2025 Screening for malign ant neoplasm of cervix Cervical cancer screen [facility]- [place], [place] Start: 01-19-2025 DTaP/Tdap/Td vaccine (2 - Td or Tdap) DTaP/Tdap/Td vaccine (2 - Td or Tdap) [facility] Start: 01-19-2025 Tetanus vaccination [facility] Start: 10-08-2024 Depression Screen Depression Screen [facility] Start: 08-07-2024 End: 08-07-2024 Patient encounter procedure 08/07/2024 4:00 PM EST Appointment [facility] M[facility]ography [address] [place] [address] Nguyen Hernandez, SEED CLEANER OPERATOR - CNLupis [address] [facility] [address] [place] [address] EPIC ALPHONSO W OFC ARIA [facility] Comment on above: EPIC ALPHONSO W OFC ARIA Start: 07-09-2024 End: 07-09-2024 Patient encounter procedure 07/09/2024 9:10 AM EST Office Visit [facility] [address] [place] [address] Ioana Clinton MD [address] [place] [id number] [facility] Start: 05-28-2024 End: 05-28-2024 Patient encounter procedure 05/28/2024 10:45 AM EDT Office Visit [facility] of [facility] [address] [place] [address] Nguyen Hernandez, SEED CLEANER OPERATOR - CNLupis [address] [facility] [address] [place] [address] PAP [facility] Comment on above: PAP Start: 05-17-2024 Screening for malign ant neoplasm of cervix Pap smear [facility] Start: 04-06-2024 COVID-19 Vaccine ( season) COVID-19 Vaccine ( season) [facility] Start: 04-06-2024 COVID-19 VACCINE ( season) COVID-19 VACCINE ( season) [facility] Start: 04-06-2024 Influenza vaccination A jazz cocone [facility] Start: 03-06-2024 Influenza vaccination Flu vaccine (# 1) [facility] Start: 02-27-2024 End: 02-27-2024 Patient encounter procedure 02/27/2024 11:30 AM EDT Office Visit [facility] [address] [place] [address] Delfina Fuller PA-C [address] [place] [address] f/u from myomectomy BA 10/16 [facility] Comment on above: f/u from myomectomy 10/16 Start: 02-18-2024 End: 02-18-2024 Laps myomectomy exc 1-4 myomas 250 gm/< UTERINE MYOMECTOMY ROBOTIC Uterine leiomyoma, unspecified location 02/18/2024 3:33 PM EDT [facility] Start: 10-09-2023 End: 10-09-2023 Patient encounter procedure 10/09/2023 4:45 PM EST Office Visit [facility] [address] [place] [address] Marlen Devi DO [address] [place] [address] med check / SS pt [facility] Comment on above: med check / SS pt Start: 09-28-2023 Hemoglobin A1c measurement A1C test (Diabetic or Prediabetic) [facility] Start: 04-06-2023 COVID-19 VACCINE ( season) COVID-19 VACCINE ( season) [facility] Start: 04-06-2023 Influenza vaccination INFLUENZ A VACCINE (Season Ended) [facility] Start: 03-06-2023 Influenza vaccination Flu vaccine (# 1) [facility] Start: 01-16-2023 Cervical cancer screen [facility]ervical [place] er screen [place] Start: 01-16-2023 Screening for malign ant neoplasm of cervix Cervical cancer screen [place] Start: 11-20-2022 End: 11-20-2022 Patient encounter procedure 11/20/2022 Routine Obstetrics and Gynecology Nguyen Hernandez, SEED CLEANER OPERATOR - CN [address] [facility] [address] [place] [address] [facility] Start: 11-20-2022 End: 11-20-2022 TREATMENT INCOMPLETE W/ D&C TREATMENT INCOMPLETE W/ D&C Missed 11/20/2022 11:15 AM EDT [facility] Start: 11-08-2022 End: 11-08-2022 Patient encounter procedure 11/08/2022 Routine Obstetrics and Gynecology [facility] Start: 10-26-2022 End: 10-26-2022 Professional / ancillary services management 10/26/2022 Ancillary Procedure Obstetrics and Gynecology [facility] GYN[facility] Start: 10-26-2022 End: 10-26-2022 ambulatory 10/26/2022 Initial Obstetrics and Gynecology [facility] Start: 04-06-2022 Influenza vaccination Flu vacc ine (Season Ended) [facility] Start: 03-06-2022 Influenza vaccination Flu vaccine (# 1) [facility] Start: 01-17-2022 End: 01-17-2022 Patient encounter procedure 01/17/2022 Office Visit Obstetrics and Gynecology Marlen Devi, DO [address] [place] [address] [facility] Start: 12-26-2021 End: 12-26-2021 Hysteroscopy bx endometrium&/polypc w/wo d&c DILATATION AND CURETTAGE HYSTEROSCOPY MENORRHAGIA, ENDOMETRIAL HYPERPLASIA, FIBROIDS 12/26/2021 3:18 PM EDT [facility] Start: 09-14-2021 Depression Screen Depression Screen [facility] Start: 05-17-2021 End: 05-17-2021 Office Visit 05/17/2021 Office Visit Obstetrics and Gynecology Nguyen Hernandez APRN - PARMJIT [address] [place], [place] [id number] [facility] Start: 04-06-2021 Influenza vaccination Flu vaccine (# 1) [facility] Start: 01-16-2021 Screening for malign ant neoplasm of cervix Pap Smear [facility] Start: 2020 Lipid panel [facility] Start: 2020 Screening for malign ant neoplasm of breast [facility] Start: 08-26-2020 End: 09-02-2021 US PELVIS COMPLETE NON-OB TRANSABDOMINAL AND TRANSVAGINAL US PELVIS COMPLETE NON-OB TRANSABDOMINAL AND TRANSVAGINAL Imaging Routine DUB (dysfunctional uterine bleeding) Expected: 08/26/2020, Expires: 09/02/2021 [facility] Comment on above: Expected: 08/26/2020 , Expires: 09/02/2021 Start: 05-13-2020 End: 05-13-2020 Procedure visit 05/13/2020 Procedure visit Obstetrics and Gynecology Nguyen Hernandez, ANGELLA - PARMJIT [address] [place], [place] [id number] [facility] Start: 04-06-2020 Influenza vaccination Flu vaccine (# 1) [facility] Start: 04-06-2020 Influenza vaccinatio n given Sequential Influenza Vaccine (#1) [facility] Start: 10-22-2019 End: 10-22-2019 Hospital Encounter [facility] Comment on above: CYSTOSCOPY WITH RETR OGRADE STONE MANIPULATION STENT INSERTION WITH LASER Start: 04-06-2019 Influenza vaccination [place], [place] Start: 04-06-2019 Influenza vaccinatio n given Sequential Influenza Vaccine (#1) [facility] Start: 01-25-2011 Hepatitis B vaccination HEP B VACCINE (2 of 3 - 19+ 3-dose series) [facility] Start: 2001 Screening for malign ant neoplasm of cervix [facility] Start: 11-29-1999 DTaP/Tdap/Td vaccine (1 - Tdap) DTaP/Tdap/Td vaccine (1 - Tdap) [place] Start: 11-29-1999 Hepatitis B vaccine (1 of 3 - 19+ 3-dose series) Hepatitis B vaccine (1 of 3 - 19+ 3-dose series) [facility] Start: 11-29-1999 Third diphtheria, tetanus and acellular pertussis (DTaP) vaccination TDAP (ADULT) [facility] Start: 1998 Hepatitis C antibody , confirmatory test Hepatitis C Screening [facility] Start: 1998 Hepatitis C screening Hepatitis C sc reen [facility] Start: 1998 Tetanus vaccination [facility] Start: 11-29-1995 HIV screen HIV screen [place], [place] Start: 11-29-[address] [facility] Start: 1993 HIV screening HIV SCREENING DISCUSSI ON [facility] Start: 1993 Varicella Vaccine (1 of 2 - 13+ 2-dose series) Varicella Vaccine (1 of 2 - 13+ 2-dose series) [facility] Start: 1992 Depression Screen Depression Screen [facility] Start: 11-29-1991 DTaP/Tdap/Td vaccine (1 - Tdap) DTaP/Tdap/Td vaccine (1 - Tdap) [place], [place] Start: 1985 COVID-19 Vaccine (1) COVID-19 Vaccin e (1) [facility] Start: 11-29-1983 History and physical examination, annual for health maintenance Wellness Visit [facility] Start: 1981 Varicella Vaccine (1 of 2 - 2-dose childhood series) Varicella Vaccine (1 of 2 - 2-dose childhood series) [facility] Start: 05-30-1981 COVID-19 Vaccine (#1) COVID-19 Vacci ne (#1) [facility] Start: 1980 Hepatitis B vaccine (1 of 3 - 3-dose series) Hepatitis B vaccine (1 of 3 - 3-dose series) [facility] Start: 1980 Hepatitis C screening [facility] Start: 1980 Screening for malign ant neoplasm of cervix Pap Smear [facility] Start: 1980 Tetanus vaccination Tetanus: Every 1 0yrs [facility] Start: 1980 Thyroid stimulating hormone measurement TSH [facility] End: 05-10-2020 Bacteria identified Aer cx Nom (Unsp spec) Urine Aerobic Culture Microbiology Routine Once for 1 Occurrences starting 05/10/2020 until 05/10/2020 [facility] Comment on above: Once for 1 Occurrenc es starting 05/10/2020 until 05/10/2020 End: 05-14-2019 Bacteria identified Cx Nom (U) Urine Culture Microbiology Routine Once for 1 Occurrences starting 05/14/2019 until 05/14/2019 [place] Comment on above: Once for 1 Occurrenc es starting 05/14/2019 until 05/14/2019 Bacteria identified Cx Nom (U) [place] End: 08-25-2020 C.trachomatis N.gonorrhoeae DNA C.trachomatis N.gonorrhoeae DNA Microbiology Routine One Time for 1 Occurrences starting 08/25/2020 until 08/25/2020 [place] Comment on above: One Time for 1 Occur rences starting 08/25/2020 until 08/25/2020 C.trachomatis N.gonorrhoeae DNA C.trachomatis N.gonorrhoeae DNA Microbiology Stat [employer] Label print 08/25/2020 6:00 PM EST [place] End: 05-13-2020 C.trachomatis N.gonorrhoeae DNA, Thin Prep C.trachomatis N.gonorrhoeae DNA, Thin Prep Microbiology Routine Screening for cervical cancer 1 Occurrences starting 05/13/2020 until 05/13/2020 [place] Comment on above: 1 Occurrences starti ng 05/13/2020 until 05/13/2020 C.trachomatis N.gonorrhoeae DNA, Thin Prep C.trachomatis N.gonorrhoeae DNA, Thin Prep Microbiology Routine Screening for cervical cancer 05/13/2020 4:07 PM EDT [facility] [place] [facility] of urinary tract CT Kidney St one Imaging STAT 10/21/2019 10:51 AM EDT [facility] End: 04-25-2020 Culture, Urine Culture, Urine Microbiology Routine Once for 1 Occurrences starting 04/25/2020 until 04/25/2020 [facility] Comment on above: Once for 1 Occurrenc es starting 04/25/2020 until 04/25/2020 End: 05-13-2020 Cytopathology procedure, preparation of smear, genital source PAP [facility] Lab Routine Screening for cervical cancer 1 Occurrences starting 05/13/2020 until 05/13/2020 [facility] [place] Comment on above: 1 Occurrences starti ng 05/13/2020 until 05/13/2020 End: 06-17-2024 Cytopathology procedure, preparation of smear, genital source PAP SMEAR Lab Routine Screening for malignant neoplasm of cervix 1 Occurrences starting 06/17/2024 until 06/17/2024 [employer] Comment on above: 1 Occurrences starti ng 06/17/2024 until 06/17/2024 End: 09-28-2022 Hemoglobin A1c/Hemoglobin.total in Blood [employer] Work Phone: Comment on above: Once for 1 Occurrenc es starting 09/28/2022 until 09/28/2022 End: 09-18-2023 Hemoglobin A1c/Hemoglobin.total in Blood [employer] Phone: Comment on above: Once for 1 Occurrenc es starting 09/18/2023 until 09/18/2023 End: 12-26-2021 INITIATE PACU OXYGEN THERAPY PROTOCOL Initiate PACU Oxygen Therapy Protocol Respiratory Care Routine Continuous until discontinued starting 12/26/2021 [employer] Work Phone: Comment on above: Continuous until dis continued starting 12/26/2021 End: 02-18-2024 INITIATE PACU OXYGEN THERAPY PROTOCOL Initiate PACU Oxygen Therapy Protocol Respiratory Care Routine Continuous until discontinued starting 02/18/2024 [employer] Comment on above: Continuous until dis continued starting 02/18/2024 Kidney Stone Analysis [facility] Comment on above: Release Upon Mauricioin g for 1 Occurrences starting 10/22/2019 Mint Green Top Mint Green Top L ab STAT 10/21/2019 9:07 AM EDT [facility] End: 09-28-2022 MISCELLANEOUS TESTING [employer] Phone: Comment on above: Once for 1 Occurrenc es starting 09/28/2022 until 09/28/2022 Oxygen therapy [Mini mum Data Set] Initiate Oxygen Therapy Protocol Respiratory Care Routine As Needed until discontinued starting 12/26/2021 [employer] Phone: Comment on above: As Needed until disc ontinued starting 12/26/2021 Oxygen therapy [Mini mum Data Set] Initiate Oxygen Therapy Protocol Respiratory Care Routine As Needed until discontinued starting 02/18/2024 [employer] Comment on above: As Needed until disc ontinued starting 02/18/2024 End: 10-22-2019 Procedure on tissue specimen Tissue Exam Pathology and Cytology Routine Once for 1 Occurrences starting 10/22/2019 until 10/22/2019, 1 completed [facility] Comment on above: Once for 1 Occurrenc es starting 10/22/2019 until 10/22/2019, 1 completed Procedure on tissue specimen Tissue Exam Pathology and Cytology Routine 10/22/2019 [facility] [place] [facility] [place] [facility] STAT 10/21/2019 9:07 AM EDT [facility] End: 07-05-2021 Surgical Pathology Surgical Pathology Lab Routine Menorrhagia with regular cycle 1 Occurrences starting 07/05/2021 until 07/05/2021 [employer] Phone: Comment on above: 1 Occurrences starti ng 07/05/2021 until 07/05/2021 Surgical Pathology Surgical Path ology Lab Routine Release Upon Ordering for 1 Occurrences starting 12/26/2021 [employer] Work Phone: Comment on above: Release Upon Orderin g for 1 Occurrences starting 12/26/2021 Surgical Pathology Surgical Path ology Lab Routine Uterine leiomyoma, unspecified location Release Upon Ordering for 1 Occurrences starting 02/18/2024 [employer] Comment on above: Release Upon Orderin g for 1 Occurrences starting 02/18/2024 End: 02-18-2024 SURGICAL PATHOLOGY REPORT SURGICAL PATHOLOGY REPORT Lab Routine Once for 1 Occurrences starting 02/18/2024 until 02/18/2024 [employer] Comment on above: Once for 1 Occurrenc es starting 02/18/2024 until 02/18/2024 End: 10-04-2022 Thyroglobulin [employer] Phone: Comment on above: Once for 1 Occurrenc es starting 10/04/2022 until 10/04/2022 End: 10-04-2022 Thyroid Antibodies [employer] Phone: Comment on above: Once for 1 Occurrenc es starting 10/04/2022 until 10/04/2022 Payers Date Payer Category Payer Unknown [id number] 2018 Unknown [employer] [id number] 2018-Present [id number] 2016 Unknown xxxxxxxxxxxx [id number] 1980 Unknown [id number] 1980 Unknown [id number] 1980 Unknown [id number] 00 1980 Unknown [id number] 1980 Unknown [id number] 02 1980 Unknown [id number] 1980 Unknown [id number] 74 1980 Unknown [id number] 93 1980 Unknown [id number] 83 1980 Unknown [id number] 2.16.840.1.581907.3.579.2.9 83 1980 Unknown [id number] 2.16.840.1.855334.3.579.2.9 83 1980 Unknown [id number] 2.16.840.1.661389.3.579.2.1 96 1980 Unknown [id number] 2.16.840.1.261403.3.579.2.1 286 1980 Unknown [id number] 2.16840.1.882065.3.579.2.9 83 1980 Unknown [id number] 2.16.840.1.974183.3.579.2.1 286 1980 Unknown [id number] 2.16.840.1.125197.3.579.2.1 286 1980 Unknown [id number] 2.16.840.1.051583.3.579.2.1 286 1980 Unknown [id number] 2.16.840.1.684697.3.579.2.1 286 1980 Unknown [id number] 2.16.840.1.775190.3.579.2.1 286 1980 Unknown [id number] 2.16.840.1.572967.3.579.2.1 286 1980 Unknown [id number] 2.16.840.1.821092.3.579.2.5 94 1980 Unknown [id number] 2.16.840.1.317590.3.579.2.1 73 1980 Unknown [id number] 2.16.840.1.616065.3.579.2.1 73 1980 Unknown [id number] 2.16.840.1.404773.3.579.2.1 73 1980 Unknown [id number] 2.16.840.1.926124.3.579.2.1 73 1980 Unknown [id number] 2.16.840.1.607190.3.579.2.1 73 1980 Unknown [id number] 2.16.840.1.054261.3.579.2.1 73 1959 Unknown [id number] Worker's Compensation [id number] Social History Date Type Detail Facility Start: 05-14-2019 End: 10-24-2022 Tobacco [facility] status [facility] Start: 05-14-2019 End: 02-18-2024 Alcohol intake No [facility] [employer] [facility] [employer] Start: 1980 Sex Assigned At Not on file [place], [place] Start: 07-13-2019 Alcohol intake Current non-drinker of alcohol (finding) [place] Start: 07-28-2019 Tobacco smoking status SDIS Unknown if ever smoked [employer] Start: 10-21-2019 End: 08-07-2024 Alcohol intake Current drinker of alcohol (finding) [facility] Start: 10-21-2019 Alcohol Comment occasssionally [facility] Start: 04-25-2020 End: 10-24-2022 Tobacco use and exposure [facility] [place] Start: 07-15-2019 Alcohol Comment occ [place] Start: 12-16-2021 End: 11-03-2022 Exposure to SARS-CoV-2 (event) Not sure [place] Start: 11-03-2022 End: 02-18-2024 Alcohol intake Ex-drinker (finding) [employer]: Start: 09-14-2022 [employer]: Start: 11-20-2022 End: 07-09-2024 Alcohol intake Lifetime non-drinker (finding) [employer] [facility] [employer] Start: 07-10-2023 End: 02-18-2024 History of Social function [employer] [facility] Patient Health Questionnaire 9 item (PHQ-9) total score [Reported] 0 enStage How hard is it for y ou to pay for the very basics like food, housing, medical care, and heating Very hard [employer] (I/We) worried wheth er (my/our) food would run out before (I/we) got money to buy more. Sometimes true [employer] At any time in the p ast 12 months, were you homeless or living in custodial [including now]? No [employer] Start: 06-17-2024 Alcohol Comment rarely [employer] [facility] Medical [facility] Procedure Code Equipment Code Equipment Origin al Text Equipment Identifier Dates Stent 6fr X 22-3 0cm Contour Armida Length - [id number] [facility] Start: 10-22-2019 Clinical Notes 12-26-2021 to 07-09-2024 Padma Martin - 07/09/2024 9:10 AM Olu Clinton MD - 07/09/2024 9:10 AM Maite Mitchell - 04/02/2024 9:20 AM Sawyer Clinton MD - 04/02/2024 9:20 AM EDTDischarge Instructions Note Date & Type Note Facility 07-09-2024 History of Presen t illness Narrative REASON FOR VISIT Kallie Keyes presents to clinic today for a Follow-Up Patient visit. Chief Complaint Headache HISTORY OF PRESENT ILLNESS HPI 43 yo female presents today with a lot more headaches and more tearing in both eyes. Pt wakes up with headaches and they last the whole day. Pt has been taking a lot of ibuprofen due to the headaches. Getting the headaches everyday. Double vision-says she has it on and off Eye pain-not sure due to the ibuprofen she is taking MRI-11/2023 Eye bulging-pt not sure (doesn't notice) Has an appt with enterprise architect manager is Caryn Apodaca MD. Next month Eye drops: none Last edited by Padma Martin on 07/09/2024 9:32 AM. REVIEW OF SYSTEMS @OSUROSAMB@ >15 minutes was spent with patient updating allergies, medications, and medical history. Allergies, medications & history reviewed & updated by Padma Martin Referring Physician: REASON FOR VISIT Kallie Keyes presents to clinic today for a Follow-Up Patient visit. Chief Complaint Headache HISTORY OF PRESENT ILLNESS HPI 43 yo female presents today with a lot more headaches and more tearing in both eyes. Pt wakes up with headaches and they last the whole day. Pt has been taking a lot of ibuprofen due to the headaches. Getting the headaches everyday. Double vision-says she has it on and off Eye pain-not sure due to the ibuprofen she is taking MRI-11/2023 Eye bulging-pt not sure (doesn't notice) Has an appt with enterprise architect manager is Caryn Apodaca MD. Next month Eye drops: none Last edited by Padma Martin on 07/09/2024 9:32 AM. REVIEW OF SYSTEMS @OSUROSAMB@ >15 minutes was spent with patient updating allergies, medications, and medical history. Allergies, medications & history reviewed & updated by Ioana Clinton MD Base Eye Exam Visual Acuity (Snellen - Linear) Right Left Dist cc 20/20 20/20 Tonometry Eye drops: none Pupils Pupils Right PERRL Left PERRL Extraocular Movement Right Left Full Full Neuro/Psych Oriented x3: Yes Mood/Affect: Normal Slit Lamp and Fundus Exam External Exam Right Left External Normal Normal Palpebral fissure 11 mm 11 mm MRD1 5 mm 5 mm MRD2 6 mm 6 mm Superior scleral show 0 mm 0 mm Inferior scleral show 0 mm 0 mm Levator 16 mm 16 mm Lagophthalmos 0 mm 0 mm Exophthalmometry (Base: 97 mm) Right Left Jelani 19 mm 18 mm Slit Lamp Exam Right Left Lids/Lashes Normal Normal Conjunctiva/Sclera White and quiet White and quiet Cornea Clear Clear Anterior Chamber Deep and quiet Deep and quiet Iris Round and reactive Round and reactive Lens Clear Clear Assessment/Plan: Thyroid-related orbitopathy, bilateral. Very mild proptosis when compared to premorbid photographs, exophthalmometry slightly above expected range for race/age/gender. No evidence of active inflammation, lid retraction, exposure keratopathy, strabismus, or compressive optic neuropathy. Non smoker. From an endocrine standpoint, the patient has undergone thyroidectomy and is on thyroid replacement. - No indication for medical or surgical intervention. Ocular lubrication as necessary. RTC prn for blurred vision, diplopia, pain, or increased proptosis. documented in this encounter [facility] 04-02-2024 History of Presen t illness Narrative REASON FOR VISIT Kallie Keyes presents to clinic today for a New Patient visit. Chief Complaint New Patient HISTORY OF PRESENT ILLNESS HPI 43 y.o. female presents today for thyroid eye disease, referred by Betzaida Sierra MD. Patient was diagnosed with Grave Disease November 2023. Patient is currently taking Levothyroxine. Patients current enterprise architect manager is Caryn Apodaca MD. Hx of NEVES/thyroidectomy? Thyroidectomy January 2024 Dry eye symptoms? Frequent tearing, itching, burning; No OTC ATs Diplopia? Briefly on rare occasions vision will double horizontally. Pt states she will close both eyes and upon opening them again diplopia will clear. Eye pain: No Eye pain with movement: No Eye bulging: Slightly Smoking status: No Previous MRI/CT (orbit)? October 2023 Last thyroid labs were done January 30, 2024. Cpap use: No Last edited by Nohemy Mitchell on 04/02/2024 9:22 AM. Allergies, medications & history reviewed & updated by Nohemy Mitchell REVIEW OF SYSTEMS Review of Systems Eyes: Positive for visual disturbance (SHARDA). Allergic/Immunologic: Positive for food allergies (Rx Allergies). Psychiatric/Behavioral: Negative for agitation and confusion. >15 minutes was spent with patient updating allergies, medications, and medical history. Referring Physician: Betzaida Sierra MD No address on file REASON FOR VISIT Kallie Keyes presents to clinic today for a New Patient visit. Chief Complaint New Patient HISTORY OF PRESENT ILLNESS HPI 43 y.o. female presents today for thyroid eye disease, referred by Betzaida Sierra MD. Patient was diagnosed with Grave Disease November 2023. Patient is currently taking Levothyroxine. Patients current enterprise architect manager is Caryn Apodaca MD. Hx of NEVES/thyroidectomy? Thyroidectomy January 2024 Dry eye symptoms? Frequent tearing, itching, burning; No OTC ATs Diplopia? Briefly on rare occasions vision will double horizontally. Pt states she will close both eyes and upon opening them again diplopia will clear. Eye pain: No Eye pain with movement: No Eye bulging: Slightly Smoking status: No Previous MRI/CT (orbit)? October 2023 Last thyroid labs were done January 30, 2024. Cpap use: No Last edited by Nohemy Mitchell on 04/02/2024 9:22 AM. Allergies, medications & history reviewed & updated by Ioana Clinton MD REVIEW OF SYSTEMS Review of Systems Eyes: Positive for visual disturbance (SHARDA). Allergic/Immunologic: Positive for food allergies (Rx Allergies). Psychiatric/Behavioral: Negative for agitation and confusion. >15 minutes was spent with patient updating allergies, medications, and medical history. Referring Physician: Betzaida Sierra MD No address on file Base Eye Exam Visual Acuity (Snellen - Linear) Right Left Dist cc 20/20 20/20 Near cc J1+ J1+ Correction: Glasses Tonometry (Tonopen, 9:27 AM) Right Left Pressure 16 16 Pupils Pupils Shape React Right PERRL Round Slow Left PERRL Round Slow Visual Oj (Counting fingers) Left Right Full Full Extraocular Movement Right Left Full Full Neuro/Psych Oriented x3: Yes Slit Lamp and Fundus Exam External Exam Right Left External ? mild proptosis, normal resistance to retropulsion ? mild proptosis, normal resistance to retropulsion Palpebral fissure 11 mm 11 mm MRD1 5 mm 5 mm MRD2 6 mm 6 mm Superior scleral show 0 mm 0 mm Inferior scleral show 0 mm 0 mm Levator 16 mm 16 mm Lagophthalmos 0 mm 0 mm Exophthalmometry (Base: 97 mm) Right Left Jelani 19.5 mm 18 mm Slit Lamp Exam Right Left Lids/Lashes Normal Normal Conjunctiva/Sclera 1+ Injection White and quiet Cornea 1+ PEEs 15% of K surface Clear Anterior Chamber Deep and quiet Deep and quiet Iris Round and reactive Round and reactive Lens Clear Clear Fundus Exam Right Left Disc Normal Normal C/D Ratio 0.2 0.2 Macula Normal Normal HVF 24-2 FAST - OU (Stim III JODY-Fast) Hare visual field (24-2 JODY fast): full OU; MD +0.93 OD, +0.39 OS Assessment/Plan: Thyroid-related orbitopathy, bilateral. Very mild proptosis when compared to premorbid photographs, exophthalmometry slightly above expected range for race/age/gender. No evidence of active inflammation, lid retraction, exposure keratopathy, strabismus, or compressive optic neuropathy. Non smoker. From an endocrine standpoint, the patient has undergone thyroidectomy and is on thyroid replacement. - Discussed the pathophysiology and natural history of thyroid orbitopathy, including the effect of smoking, radioactive iodine, and hypothyroidism on the disease. Discussed in general terms the treatment options for TO, including corticosteroids, radiation, immunobiologics, and surgery. At present, there is no indication for medical or surgical intervention. Ocular lubrication as necessary. RTC in 3 months or earlier for blurred vision, diplopia, pain, or increased proptosis. documented in this encounter [facility] 02-18-2024 History of Presen t illness Narrative Pt verbalized readiness to go home. Discharge Criteria Inpatients must meet Criteria 1 through 7. All other patients are either YES or N/A. If a NO is chosen then Anesthesia or Surgeon must be notified. 1. Minimum 30 minutes after last dose of sedative medication. Yes 2. Systolic BP between 90 - 160. Diastolic BP between 60 - 90. Yes 3. Pulse between 60 - 120 Yes 4. Respirations between 8 - 25. Yes 5. SpO2 92% - 100%. Yes 6. Able to cough and swallow or return to baseline function. Yes 7. Alert and oriented or return to baseline mental status. Yes 8. Demonstrates controlled, coordinated movements, ambulates with steady gait, or return to baseline activity function. Yes 9. Minimal or no pain or nausea, or at a level tolerable and acceptable to patient. Yes 10. Takes and retains oral fluids as allowed. Yes 11. Procedural / perioperative site stable. Minimal or no bleeding. Yes 12. If GI endoscopy procedure, minimal or no abdominal distention or passing flatus. N/A 13. Written discharge instructions and emergency telephone number provided. Yes 14. Accompanied by a responsible adult. Yes Patient instructed on the pre-operative, intra-operative, and post-operative process. Patient instructed on NPO status. Medication instructions and pre operative instruction sheet reviewed with the patient. CHG skin prep instructions reviewed with patient. Instructed pt to stop ibuprofen 7 days prior to surgery and to take lexapro and tapazole with a small sip of water prior to arriving to the hospital; the day of surgery. Attempted PAT phone call; no answer; message left to return PAT phone call. documented in this encounter [facility] 02-18-2024 Hospital Discharg e instructions Gege Lim RN - 02/18/2024 3:00 PM EDT SAME DAY SURGERY DISCHARGE INSTRUCTIONS 1. Do not drive or operate hazardous machinery for 24 hours. 2. Do not make important personal or business decisions for 24 hours. 3. Do not drink alcoholic beverages for 24 hours. 4. Do not smoke tobacco products for 24 hours. 5. Patient should not be left alone for 12-24 hours following surgical procedure. 6. Eat light foods (Jell-O, soups, etc....) and drink plenty of fluids (water, Sprite, etc...) up to 8 glasses per day, as you can tolerate. 7. If your bandages become soaked with bright red blood, place another dressing pad over your bandages. (DO NOT remove original bandage.) Call your surgeon for further instructions. A small amount of bright red blood is to be expected. 8. Wash hands before and after incision care. It is important to practice good personal hygiene during the post op period. 9. You may remove your dressing the morning following surgery; leave the steri-strips in place, they will fall off on their own. If they have not fallen off in 7-10 days, please remove them. 10. If no drainage from incisions you may shower. 11. Limit your activities for 24 hours. Do not engage in heavy work until your surgeon gives you permission. DO NOT lift anything heavier than 10 pounds. You may go up & down stairs and do any activity that can be done comfortably. 12. Report the following signs or any questions regarding your physical condition to your surgeon immediately: Excessive swelling of, or around the wound area. Redness or pus-like drainage Temperature of 100 degrees (F) or above. Excessive pain. If unable to urinate 4 hours after surgery. If bleeding at surgery site continues after 5-10 minutes of pressure. 13. Pain Control: Take pain meds as prescribed. You may use over the counter meds like Acetaminophen or Ibuprofen if not part of the meds already prescribed. While on narcotic pain meds DO NOT drive, operate machinery or make business decisions. 14. Try to avoid constipation (no bowel movement) by using over the counter Colace once or twice daily and increasing your fluid intake. Please call if no bowel movement after increasing fluid intake, use of Milk of Magnesia, Pericolace (laxative) or Dulcolax suppositories. 15. No sexual activity, tampons, douches, sitting in hot tubs/saunas or swimming in pools/ponds for 6 weeks or until cleared by your surgeon. 16. Call your surgeon for any questions regarding your surgery. 17. Call for an appointment to see SHREYAS Escobar in [address] Nava -- [place] office [phone] [place] office [phone] documented in this encounter [facility] 11-29-2023 Hospital Discharg e instructions Artie Burden MD - 11/29/2023 9:47 PM EDT Your labs were within normal limits. Your urinalysis did not show a UTI. CT of your abdomen and pelvis showed no evidence of abdominal or pelvic acute abnormalities. Based on your examination a diagnosis of thoracic left-sided muscle spasm of your back has been made. Given placed on a prednisone burst to help with the inflammation and muscle relaxants to help release spasm. As muscle relaxants can cause drowsiness, you can not operate machinery or drive while taking this medication. Please follow-up with your primary care provider in the next 3-5 days for further evaluation. If at any point you develop lower extremity weakness numbness or loss of bowel or bladder control, please return to emergency room immediately. The following attachments cannot be sent through Care Everywhere.Back Spasm (Greek)documented in this encounter [facility] 11-20-2022 Emergency department Note Pt transported to OB per cart with products of conception [facility] 11-20-2022 Emergency department Note Pt transported to OB per cart with products of conception Continuation of Emergency Department Encounter I assumed the patient's care at the change of shift from . Please see their note for full history and physical exam. At the time of my assumption of care Dr Lundberg VITAL SIGNS DURING ED VISIT: Patient Vitals for the past 24 hrs: BP Temp Temp src Pulse Resp SpO2 Height 11/20/22 0830 108/50 -- -- 71 15 98 % -- 11/20/22 0815 -- -- -- 82 13 93 % -- 11/20/22 0730 117/58 -- -- -- -- 98 % -- 11/20/22 0630 96/54 -- -- 97 18 98 % -- 11/20/22 0600 94/52 -- -- 74 18 97 % -- 11/20/22 0500 120/74 -- -- 76 20 97 % -- 11/20/22 0400 116/69 -- -- 84 20 99 % -- 11/20/22 030 -- -- -- -- -- -- 1.651 m (5' 5 ) 11/20/22 0302 (!) 163/95 98.3 F (36.8 C) Oral 101 20 98 % -- ED COURSE & MEDICAL DECISION MAKING Orders Placed This Encounter US OB TRANSVAGINAL/CERVICAL LENGTH CBC, EDIF, PLATELET COMPREHENSIVE METABOLIC PANEL BETA HCG, QUANT, BLOOD Sodium chloride 0.9% IV solution 1,000 mL Sodium chloride 0.9% IV solution Ondansetron 4mg/2ml (ZOFRAN) injection 4 mg Morphine sulfate (PF) injection 4 mg Acetaminophen (TYLENOL) tablet 650 mg Morphine (PF) injection 2 mg Methylergonovine (METHERGINE) injection 200 mcg LABS Results for orders placed or performed during the hospital encounter of 11/20/22 CBC, EDIF, PLATELET Result Value Ref Range WBC (WHITE BLOOD COUNT) 10.1 3.6 - 11.0 10*3/uL RBC 3.92 (L) 4.0 - 5.4 10*6/uL HEMOGLOBIN (HGB) 10.3 (L) 12.0 - 16.0 G/DL HEMATOCRIT (HCT) 30.4 (L) 36.0 - 48.0 % MEAN CELL VOLUME 77.5 (L) 80.0 - 100.0 FL Mean Cell HGB 26.3 26.0 - 35.0 PG MEAN CELL HGB CONCENTRATION 34.0 27.0 - 37.0 G/DL RBC DISTRIBUTION 16.1 (H) 11.5 - 14.5 % PLATELET COUNT 269 130 - 400 10*3/uL MEAN PLATELET VOLUME 8.1 7.4 - 11.0 FL DIFFERENTIAL TYPE AUTO DIFF % NEUTROPHILS 63.6 37.0 - 75.0 % LYMPHOCYTE 25.7 20.0 - 55.0 % MONOCYTE % 8.0 0.0 - 10.0 % EOSINOPHIL % 2.0 0.0 - 11.0 % BASOPHIL % 0.7 0.0 - 2.0 % Absolute Neutrophil Count 6.4 1.4 - 6.5 10*3/uL LYMPHOCYTES, ABSOLUTE 2.6 1.2 - 3.4 10*3/uL MONOCYTES, ABSOLUTE 0.8 (H) 0.0 - 0.7 10*3/uL ABSOLUTE EOSINOPHIL COUNT 0.2 0.0 - 0.7 10*3/uL ABSOLUTE BASOPHIL COUNT 0.1 0.0 - 0.2 10*3/uL COMPREHENSIVE METABOLIC PANEL Result Value Ref Range Glucose 129 (H) 70 - 100 MG/DL BUN 7 7 - 20 MG/DL CREATININE SERUM 0.50 (L) 0.7 - 1.2 MG/DL SODIUM 136 (L) 137 - 145 MMOL/L POTASSIUM 3.4 (L) 3.5 - 5.1 MMOL/L CHLORIDE 105 98 - 107 MMOL/L CALCIUM 9.1 8.4 - 10.2 MG/DL PROTEIN, TOTAL 7.1 6.3 - 8.2 GM/DL Albumin 3.7 3.5 - 5.0 G/dl BILIRUBIN, TOTAL 0.2 0.2 - 1.3 MG/DL AST 22 14 - 36 IU/L ALKALINE PHOSPHATASE 81 38 - 126 IU/L CARBON DIOXIDE (CO2) 21 (L) 22 - 30 MMOL/L A/G Ratio 1.1 (L) 1.3 - 2.2 RATIO ALT 20 <35 IU/L ESTIMATED GFR, NON AMER 145 ml/min/1.73sq.m ESTIMATED GFR, 175 ml/min/1.73sq.m GFR COMMENT Average GFR for 40-49 years old = 99. BETA HCG, QUANT, BLOOD Result Value Ref Range BETA HCG, QUANT, 58,761.00 MIU/ML IMAGING: US OB TRANSVAGINAL/CERVICAL LENGTH Final Result IMPRESSION: Ultrasound study demonstrates findings suspect for retained products of conception within the distal uterine segment and the cervix. Short-term follow-up is recommended for further evaluation. Suggestion of mild retroversion of the uterus. CONSULTATIONS: Dr Aden has spoken to Dr Kirk twice. Patient will be going up to OB for further evaluation, most likely D&C. Patient was seen, treated, and disposition by Dr. Aden. Patient has transitioned to la at 8 AM, patient is just waiting to be transferred to OB. I do not seen and evaluated this patient. patient's had no other acute concerns. This was Dr Aden pt. CLINICAL IMPRESSIONS: 1. Incomplete miscarriage DISPOSITION: Patient is being discharged in ER, being transferred to the OB floor, will be seen and evaluated by Dr. Kirk. No follow-ups on file. New Prescriptions No medications on file Discontinued Medications No medications on file An after visit summary was printed and given to the patient with the above information. Portions of this chart were created using [employer] electronic dictation. Please excuse any typographical or grammatical errors contained herein. Pritesh Lundberg DO 11/20/22 0911 Report called to Betzaida VELÁSQUEZ . Pt will go up to OB dept before surgery at 11am. Pt and visitor determined to have decided to have fetus sent to home, release of body form is completed as well as written statement [facility] Pt resting on cart, denies needs at this time. She continues to be tearful so emotional support provided. Pt has not yet determined what she would like done with products of conception . Call light is in reach Emotional support given to pt. She denies current needs at this time. Pt is updated on plan of care and is aware she is awaiting results of US , call light is in reach US bedside with patient Foot prints and announcement filled out for mother. Report given to DIDIER Winters. Ultrasound at bedside. This nurse in to assist Dr. Aden with pelvic exam. Copious amounts of bright red blood and clots, fetus delivered during pelvic. Wrapped in gauze. Dr. Aden notified patient of miscarriage. Patient tearful. Patient would like to see fetus. This nurse wraps fetus in cloth and allows patient to be with fetus. Boyfriend in room with patient and this nurse to assist patient with emotional and physical needs. Patient cleaned up and new sheets placed on bed. OBGYN called for keepsake box. Patient remains with fetus. Patient presses call light and states I bled through my pad . This nurse assists patient in changing pad. Previous pad is saturated in bright red blood and one large clot. Patient cleaned up with wet wash cloths and new mesh underwear provided. Patient placed back in bed and denies further needs at this time. Heat pack provided for pt report of return of cramping pain. VO for tylenol placed. documented in this encounter [facility] 11-20-2022 Physician Emergency department Note Continuation of Emergency Department Encounter I assumed the patient's care at the change of shift from . Please see their note for full history and physical exam. At the time of my assumption of care Dr Lundberg VITAL SIGNS DURING ED VISIT: Patient Vitals for the past 24 hrs: BP Temp Temp src Pulse Resp SpO2 Height 11/20/22 0830 108/50 -- -- 71 15 98 % -- 11/20/22 0815 -- -- -- 82 13 93 % -- 11/20/22 0730 117/58 -- -- -- -- 98 % -- 11/20/22 0630 96/54 -- -- 97 18 98 % -- 11/20/22 0600 94/52 -- -- 74 18 97 % -- 11/20/22 0500 120/74 -- -- 76 20 97 % -- 11/20/22 0400 116/69 -- -- 84 20 99 % -- 11/20/22 0303 -- -- -- -- -- -- 1.651 m (5' 5 ) 11/20/22 0302 (!) 163/95 98.3 F (36.8 C) Oral 101 20 98 % -- ED COURSE & MEDICAL DECISION MAKING Orders Placed This Encounter US OB TRANSVAGINAL/CERVICAL LENGTH CBC, EDIF, PLATELET COMPREHENSIVE METABOLIC PANEL BETA HCG, QUANT, BLOOD Sodium chloride 0.9% IV solution 1,000 mL Sodium chloride 0.9% IV solution Ondansetron 4mg/2ml (ZOFRAN) injection 4 mg Morphine sulfate (PF) injection 4 mg Acetaminophen (TYLENOL) tablet 650 mg Morphine (PF) injection 2 mg Methylergonovine (METHERGINE) injection 200 mcg LABS Results for orders placed or performed during the hospital encounter of 11/20/22 CBC, EDIF, PLATELET Result Value Ref Range WBC (WHITE BLOOD COUNT) 10.1 3.6 - 11.0 10*3/uL RBC 3.92 (L) 4.0 - 5.4 10*6/uL HEMOGLOBIN (HGB) 10.3 (L) 12.0 - 16.0 G/DL HEMATOCRIT (HCT) 30.4 (L) 36.0 - 48.0 % MEAN CELL VOLUME 77.5 (L) 80.0 - 100.0 FL Mean Cell HGB 26.3 26.0 - 35.0 PG MEAN CELL HGB CONCENTRATION 34.0 27.0 - 37.0 G/DL RBC DISTRIBUTION 16.1 (H) 11.5 - 14.5 % PLATELET COUNT 269 130 - 400 10*3/uL MEAN PLATELET VOLUME 8.1 7.4 - 11.0 FL DIFFERENTIAL TYPE AUTO DIFF % NEUTROPHILS 63.6 37.0 - 75.0 % LYMPHOCYTE 25.7 20.0 - 55.0 % MONOCYTE % 8.0 0.0 - 10.0 % EOSINOPHIL % 2.0 0.0 - 11.0 % BASOPHIL % 0.7 0.0 - 2.0 % Absolute Neutrophil Count 6.4 1.4 - 6.5 10*3/uL LYMPHOCYTES, ABSOLUTE 2.6 1.2 - 3.4 10*3/uL MONOCYTES, ABSOLUTE 0.8 (H) 0.0 - 0.7 10*3/uL ABSOLUTE EOSINOPHIL COUNT 0.2 0.0 - 0.7 10*3/uL ABSOLUTE BASOPHIL COUNT 0.1 0.0 - 0.2 10*3/uL COMPREHENSIVE METABOLIC PANEL Result Value Ref Range Glucose 129 (H) 70 - 100 MG/DL BUN 7 7 - 20 MG/DL CREATININE SERUM 0.50 (L) 0.7 - 1.2 MG/DL SODIUM 136 (L) 137 - 145 MMOL/L POTASSIUM 3.4 (L) 3.5 - 5.1 MMOL/L CHLORIDE 105 98 - 107 MMOL/L CALCIUM 9.1 8.4 - 10.2 MG/DL PROTEIN, TOTAL 7.1 6.3 - 8.2 GM/DL Albumin 3.7 3.5 - 5.0 G/dl BILIRUBIN, TOTAL 0.2 0.2 - 1.3 MG/DL AST 22 14 - 36 IU/L ALKALINE PHOSPHATASE 81 38 - 126 IU/L CARBON DIOXIDE (CO2) 21 (L) 22 - 30 MMOL/L A/G Ratio 1.1 (L) 1.3 - 2.2 RATIO ALT 20 <35 IU/L ESTIMATED GFR, NON AMER 145 ml/min/1.73sq.m ESTIMATED GFR, 175 ml/min/1.73sq.m GFR COMMENT Average GFR for 40-49 years old = 99. BETA HCG, QUANT, BLOOD Result Value Ref Range BETA HCG, QUANT, 58,761.00 MIU/ML IMAGING: US OB TRANSVAGINAL/CERVICAL LENGTH Final Result IMPRESSION: Ultrasound study demonstrates findings suspect for retained products of conception within the distal uterine segment and the cervix. Short-term follow-up is recommended for further evaluation. Suggestion of mild retroversion of the uterus. CONSULTATIONS: Dr Aden has spoken to Dr Kirk twice. Patient will be going up to OB for further evaluation, most likely D&C. Patient was seen, treated, and disposition by Dr. Aden. Patient has transitioned to la at 8 AM, patient is just waiting to be transferred to OB. I do not seen and evaluated this patient. patient's had no other acute concerns. This was Dr Aden pt. CLINICAL IMPRESSIONS: 1. Incomplete miscarriage DISPOSITION: Patient is being discharged in ER, being transferred to the OB floor, will be seen and evaluated by Dr. Kirk. No follow-ups on file. New Prescriptions No medications on file Discontinued Medications No medications on file An after visit summary was printed and given to the patient with the above information. Portions of this chart were created using [employer] electronic dictation. Please excuse any typographical or grammatical errors contained herein. Pritesh Lundberg DO 11/20/22 0911 [facility] Work Phone: 11-20-2022 Hospital Discharg e instructions Pritesh Lundberg DO - 11/20/2022 9:08 AM EDT You are going to OB to see Dr Kirk for further evaluation. The following attachments cannot be sent through Care Everywhere.D and C: Pre-op (Greek)Miscarriage: Early Loss ([facility]) (Greek)documented in this encounter [facility] 11-20-2022 Emergency department Note Report called to Betzaida VELÁSQUEZ . Pt will go up to OB dept before surgery at 11am. Pt and visitor determined to have decided to have fetus sent to home, release of body form is completed as well as written statement of early loss form [facility] 11-20-2022 Emergency department Note Per [facility] pt to go to room 201 on OB T [facility] 11-20-2022 Emergency department Note Pt resting on cart, denies needs at this time. She continues to be tearful so emotional support provided. Pt has not yet determined what she would like done with products of conception . Call light is in reach [facility] 11-20-2022 Emergency department Note Emotional support given to pt. She denies current needs at this time. Pt is updated on plan of care and is aware she is awaiting results of US , call light is in reach [facility] 11-20-2022 Emergency department Note US bedside with patient [facility] 11-20-2022 Emergency department Note Foot prints and announcement filled out for mother. Report given to DIDIER Winters. Ultrasound at bedside. [facility] 11-20-2022 Emergency department Note This nurse in to assist Dr. Aden with pelvic exam. Copious amounts of bright red blood and clots, fetus delivered during pelvic. Wrapped in gauze. Dr. Aden notified patient of miscarriage. Patient tearful. Patient would like to see fetus. This nurse wraps fetus in cloth and allows patient to be with fetus. Boyfriend in room with patient and this nurse to assist patient with emotional and physical needs. Patient cleaned up and new sheets placed on bed. OBGYN called for keepsake box. Patient remains with fetus. [facility] 11-20-2022 Emergency department Note Patient presses call light and states I bled through my pad . This nurse assists patient in changing pad. Previous pad is saturated in bright red blood and one large clot. Patient cleaned up with wet wash cloths and new mesh underwear provided. Patient placed back in bed and denies further needs at this time. [facility] 11-20-2022 Emergency department Note Heat pack provided for pt report of return of cramping pain. VO for tylenol placed. [facility] 11-03-2022 Hospital Discharg e instructions Ninfa Long DO - 11/03/2022 12:21 PM EDT Follow-up with your OB doctor as scheduled. Return to the emergency department if the bleeding gets worse and you are going through 1 pad every hour or if you feel dizzy or lightheaded. Pelvic rest may also be necessary while the bleeding last. If you have any concerns or questions regarding your care today, please discuss with your nurse or physician prior to leaving the emergency department. Thank you for allowing us to take care of you at [facility]. In the next few days you may receive a survey by mail or e-mail asking about the care you received during this visit. Please complete this if you are able, as this feedback helps us provide the best care possible. The following attachments cannot be sent through Care Everywhere.: Vaginal Bleeding (Greek)documented in this encounter [facility] Work Phone: 12-26-2021 History of Presen t illness Narrative Pt requested to use restroom prior to discharge, ambulated with standby gait, voided without difficulty. Patient verbalizes readiness for discharge. Discharge instructions given to patient and responsible adult, answered all questions, and verbalized understanding of discharge instructions. Discharge Criteria Inpatients must meet Criteria 1 through 7. All other patients are either YES or N/A. If a NO is chosen then Anesthesia or Surgeon must be notified. 1. Minimum 30 minutes after last dose of sedative medication, minimum 120 minutes after last dose of reversal agent. Yes 2. Systolic BP stable within 20 mmHg for 30 minutes & systolic BP between 90 & 180 or within 10 mmHg of baseline. Yes 3. Pulse between 60 and 100 or within 10 bpm of baseline. Yes 4. Spontaneous respiratory rate >/= 10 per minute. Yes 5. SaO2 >/= 95 or >/= baseline. Yes 6. Able to cough and swallow or return to baseline function. Yes 7. Alert and oriented or return to baseline mental status. Yes 8. Demonstrates controlled, coordinated movements, ambulates with steady gait, or return to baseline activity function. Yes 9. Minimal or no pain or nausea, or at a level tolerable and acceptable to patient. Yes 10. Takes and retains oral fluids as allowed. Yes 11. Procedural / perioperative site stable. Minimal or no bleeding. Yes 12. If GI endoscopy procedure, minimal or no abdominal distention or passing flatus. N/A 13. Written discharge instructions and emergency telephone number provided. Yes 14. Accompanied by a responsible adult. Yes Patient instructed on the pre-operative, intra-operative, and post-operative process. Patient instructed on NPO status. Medication instructions and pre operative instruction sheet reviewed with the patient. Instructed pt to stop taking ibuprofen 7 days prior to surgery. documented in this encounter [facility] [employer] Phone: 12-26-2021 Hospital Discharg e instructions Kassandra Field RN - 12/26/2021 SAME DAY SURGERY DISCHARGE INSTRUCTIONS 1. Do not drive or operate hazardous machinery for 24 hours. 2. Do not make important personal or business decisions for 24 hours. 3. Do not drink alcoholic beverages for 24 hours. 4. Do not smoke tobacco products for 24 hours. 5. Eat light foods (Jell-O, soups, etc....) and drink plenty of fluids (water, Sprite, etc...) up to 8 glasses per day, as you can tolerate. 6. Limit your activities for 24 hours. Do not engage in heavy work until your surgeon gives you permission. 7. Notify your doctor immediately of any of the following: Excessive swelling of, or around the wound area. Redness. Temperature of 100 degrees (F) or above. Excessive pain. Unable to urinate or empty bladder 4-6 hours after surgery. Excessive bleeding at incision site. 8. Call your surgeon for any questions regarding your surgery. POST-OPERATIVE INSTRUCTIONS Activity as tolerated; may shower and change dressings as needed. Pain medication to be taken as directed for discomfort. No sexual relations, douches, tampons, tub baths, swimming in ponds/pools, or hot tubs for 2 weeks or until discharge stops. May have some vaginal drainage for 1-2 weeks, call if excessive (soaks through a pad within an hour). Call the office at [phone] ([place]) [phone] ([place]) for an appointment in 2 weeks. documented in this encounter [facility] [employer] Phone: Evaluation note Diagnosis Menorrhagia with regular cycle Excessive or frequent menstruation documented in this encounter [employer] Phone: evaluation note* Diagnosis Vaginal bleeding in - Primary Unspecified antepartum hemorrhage, unspecified as to episode of care documented in this encounter [employer] Phone: evaluation note* Diagnosis Incomplete miscarriage- Primary Incomplete spontaneous without mention of complication [facility] Diagnosis Muscle spasm of back- Primary Other symptoms referable to back [facility]* Diagnosis Postoperative pain- Primary Other acute postoperative pain Uterine leiomyoma, unspecified location Menorrhagia with regular cycle Excessive or frequent menstruation Dysmenorrhea documented in this encounter [facility] [employer] note* Diagnosis Graves' orbitopathy - Both Eyes- Primary Toxic diffuse goiter without mention of thyrotoxic crisis or storm [facility]* Diagnosis Screening for malignant neoplasm of cervix Screening for malignant neoplasm of the cervix [facility]* Diagnosis Graves' orbitopathy - Both Eyes- Primary Toxic diffuse goiter without mention of thyrotoxic crisis or storm documented [facility] this encounter [facility]* Diagnosis Screening mammogram, encounter for documented in this encounter [facility] [employer] [facility] note* Diagnosis Abnormal mammogram of left breast documented in this encounter [facility] [employer]Reason for visit Narrative* Auth/Cert Specialty Diagnoses / Procedures Referred By Starla juarez Referred To Contact Diagnoses Menorrhagia Endometrial hyperplasia Fibroids MENORRHAGIA, ENDOMETRIAL HYPERPLASIA, FIBROIDS Procedures CO HYSTEROSCOPY,W/ENDO BX DILATATION AND CURETTAGE HYSTEROSCOPY Marlen Devi, DO [address] [place] [address] [employer] [address] [place] [address] Referral ID Status Reason Start Date Expiration Date Visits Re quested Visits Authorized 1 1 [employer] Work Phone: Summary Purpose Family History No Family History Records FoundNo Family History Records FoundNo Family History Records FoundNo Family History Records FoundNo Family History Records FoundNo Family History Records FoundNo Family History Records FoundNo Family History Records FoundNo Family History Records FoundNo Family History Records FoundNo Family History Records FoundNo Family History Records FoundNo Family History Records FoundNo Family History Records FoundNo Family History Records FoundNo Family History Records Found Advance Directives Documents on File Type Date Recorded Patient Legal Technician Expl anation Advance Directives and Living Will Power of Ui Architect Documents on File Type Date Recorded Patient Legal Technician Expl anation Advance Directives and Livin g Will 10/21/2019 9:48 AM Latest Code Status on File Code Status Date Activated Date Inactivated Comments Full Code 10/21/2019 4:40 PM Documents on File Type Date Recorded Patient Legal Technician Expl anation Advance Directives and Livin g Will 10/21/2019 9:48 AM Latest Code Status on File Code Status Date Activated Date Inactivated Comments Full Code 10/21/2019 4:40 PM 10/22/2019 10:19 PM Latest Code Status on File Code Status Date Activated Date Inactivated Comments Full Code 10/21/2019 4:40 PM 10/22/2019 10:19 PM Documents on File Type Date Recorded Patient Legal Technician Expl anation ACP-Advance Directive ACP-Power of Ui Architect Documents on File Type Date Recorded Patient Legal Technician Expl anation Advance Directives and Livin g Will 05/10/2020 11:39 PM Documents on File Type Date Recorded Patient Legal Technician Expl anation ACP-Advance Directive ACP-Power of Ui Architect Latest Code Status on File Code Status Date Activated Date Inactivated Comments Full Code 12/26/2021 1:46 PM Latest Code Status on File Code Status Date Activated Date Inactivated Comments Full Code 12/26/2021 1:46 PM 12/26/2021 7:03 PM Latest Code Status on File Code Status Date Activated Date Inactivated Comments Full Code 11/20/2022 11:24 AM Latest Code Status on File Code Status Date Activated Date Inactivated Comments Full Code 12/26/2021 1:46 PM 12/26/2021 7:03 PM Latest Code Status on File Code Status Date Activated Date Inactivated Comments Full Code 11/20/2022 11:24 AM Latest Code Status on File Code Status Date Activated Date Inactivated Comments Full Code 02/18/2024 12:39 PM Code Status History Code Status Date Activated Date Inactivated Comments Full Code 12/26/2021 1:46 PM 12/26/2021 7:03 PM Date Activated Date Inactivated Comments 11/20/2022 11:24 AM Date Activated Date Inactivated Comments 02/18/2024 12:39 PM 02/18/2024 9:26 PM Date Activated Date Inactivated Comments 12/26/2021 1:46 PM 12/26/2021 7:03 PM Date Activated Date Inactivated Comments 02/18/2024 12:39 PM 02/18/2024 9:26 PM Date Activated Date Inactivated Comments 12/26/2021 1:46 PM 12/26/2021 7:03 PM Discharge Instructions * Attachments The following attachments cannot be sent through Care Everywhere. * UTI (Urinary Tract Infection): Female (Greek) * Kidney Stone (Greek) documented in this encounter* Attachments The following attachments cannot be sent through Care Everywhere. * Vaginal Yeast Infection (Greek) documented in this encounter* Attachments The following attachments cannot be sent through Care Everywhere. * Urinary Tract: Female: Anatomy Sketch (Greek) documented in this encounter* Attachments The following attachments cannot be sent through Care Everywhere. * Kidney Stone (Greek) documented in this encounter* Instructions* Saniya Bee, CUT ROLL MACHINE OPERATOR - 10/22/2019 Laser Lithotripsy: What to Expect at Home Your Recovery Laser lithotripsy is a way to treat kidney stones. This treatment uses a laser to break kidney stones into tiny pieces. For several hours after the procedure you may have a burning feeling when you urinate. You may feelthe urge to go even if you don't need to. This feeling should go away within a day. Drinking a lot of water can help. Your doctor also may advise you to take medicine that numbs the burning. This medicine is called phenazopyridine. It is available by prescription and over the counter. Brand names include Pyridium and Uristat. Your doctor may prescribe an antibiotic. This will help prevent an infection. You may have some blood in your urine for 2 or 3 days. Your doctor may have placed a small tube inside one of your ureters. Ureters are the tubes that connect the kidneys to the bladder. The small tube the doctor may have placed is called a stent. It mayhelp the stone fragments pass through your body. Your doctor may remove the stent in a few weeks. Most stone fragments that are not removed pass out of the body within 24 hours. But sometimes it can take many weeks. If you have a large stone, you may need to come back for more treatments. This care sheet gives you a general idea about how long it will take for you to recover. But each person recovers at a different pace. Follow the steps below to feel better as quickly as possible. How can you care for yourself at home? Activity Rest as much as you need to after you go home. You may do your regular activities. But avoid hard exercise or sports for about a week or until there is no blood in your urine. Diet You can eat your normal diet after lithotripsy. Continue to drink plenty of fluids, enough so that your urine is light yellow or clear like water. If you have kidney, heart, or liver disease and have to limit fluids, talk with your doctor before you increase the amount of fluids you drink. Medicines Your doctor will tell you if and when you can restart your medicines. He or she will also give you instructions about taking any new medicines. If you take aspirin or some other blood thinner, ask your doctor if and when to start taking it again. Make sure that you understand exactly what your doctor wants you to do. If you take medicine to stop the burning when you urinate, take it exactly as recommended. Call your doctor if you think you are having a problem with your medicine. This medicine may color your urine orange or red. This is normal. You will get more details on the specific medicine your doctor recommends. If your doctor prescribed antibiotics, take them as directed. Do not stop taking them just because you feel better. You need to take the full course of antibiotics. Be safe with medicines. Read and follow all instructions on the label. ? If the doctor gave you a prescription medicine for pain, take it as prescribed. ? If you are not taking a prescription pain medicine, ask your doctor if you can take acetaminophen(Tylenol). Do not take ibuprofen (Advil, Motrin) or naproxen (Aleve) or similar medicines unless your doctor tells you to. ? Do not take two or more pain medicines at the same time unless the doctor told you to. Many pain medicines have acetaminophen, which is Tylenol. Too much acetaminophen (Tylenol) can be harmful. Heat Take a warm bath. This may soothe the burning. Other instructions Urinate through the strainer the doctor gives you. Save any stone pieces, including those that looklike sand or gravel. Take these to your doctor. This will help your doctor find the cause of your stones. Follow-up care is a osborne part of your treatment and safety. Be sure to make and go to all appointments, and call your doctor if you are having problems. It's also a good idea to know your test resultsand keep a list of the medicines you take. When should you call for help? Call 911 anytime you think you may need emergency care. For example, call if: You passed out (lost consciousness). You have chest pain, are short of breath, or cough up blood. Call your doctor now or seek immediate medical care if: You have pain that does not get better after you take pain medicine. You have new or more blood clots in your urine. (It is normal for the urine to be pink for a few days.) You cannot urinate. You have symptoms of a urinary tract infection. These may include: ? Pain or burning when you urinate. ? A frequent need to urinate without being able to pass much urine. ? Pain in the flank, which is just below the rib cage and above the waist on either side of the back. ? Blood in the urine. ? A fever. You are sick to your stomach or cannot drink fluids. You have signs of a blood clot in your leg (called a deep vein thrombosis), such as: ? Pain in the calf, back of the knee, thigh, or groin. ? Redness and swelling in your leg. Watch closely for any changes in your health, and be sure to contact your doctor if you have any problems. Where can you learn more? Log into your personal health record on [email or web address] and enter Q239 in the Education box to learn more about Laser Lithotripsy: What to Expect at Home. Current as of: March 16, 2019 Content Version: 12.3 6926-7299 [employer]. Care instructions adapted under license by your healthcare professional. If you have questions about a medical condition or this instruction, always ask your healthcare professional. [employer] disclaims any warranty or liability for your use of this information. Ureteroscopy: What to Expect at Home Your Recovery For several hours after the procedure you may have a burning feeling when you urinate. This feelingshould go away within a day. Drinking a lot of water can help. Your doctor also may advise you to take medicine that numbs the burning. This medicine is called phenazopyridine. It is available by prescription and over the counter. Brand names include Pyridium and Uristat. You may have some blood inyour urine for 2 or 3 days. Your doctor may prescribe an antibiotic for a day or two. This will help prevent an infection. This care sheet gives you a general idea about how long it will take for you to recover. But each person recovers at a different pace. Follow the steps below to feel better as quickly as possible. How can you care for yourself at home? Activity You can go back to work and other activities the next day. Diet Try to drink two 8-ounce glasses of water each hour for 2 hours after the procedure. This may help ease the burning when you urinate. Medicines Your doctor will tell you if and when you can restart your medicines. He or she will also give you instructions about taking any new medicines. If you take blood thinners, such as warfarin (Coumadin), clopidogrel (Plavix), or aspirin, be sure to talk to your doctor. He or she will tell you if and when to start taking those medicines again. Make sure that you understand exactly what your doctor wants you to do. If you take medicine to stop the burning when you urinate, take it exactly as recommended. Be safe with medicines. Call your doctor if you think you are having a problem with your medicine. You will get more details on the specific medicine your doctor recommends. If your doctor prescribed antibiotics, take them as directed. Do not stop taking them just because you feel better. You need to take the full course of antibiotics. Ask your doctor if you can take an [id number] pain medicine, such as acetaminophen (Tylenol),ibuprofen (Advil, Motrin), or naproxen (Aleve). Read and follow all instructions on the label. Do not take two or more pain medicines at the same time unless the doctor told you to. Many pain medicines have acetaminophen, which is Tylenol. Too much acetaminophen (Tylenol) can be harmful. Heat Take a warm bath. This may soothe the burning. You also can hold a warm washcloth over your urethra for comfort. (The urethra is where your urine comes out.) Follow-up care is a osborne part of your treatment and safety. Be sure to make and go to all appointments, and call your doctor if you are having problems. It's also a good idea to know your test resultsand keep a list of the medicines you take. When should you call for help? Call your doctor now or seek immediate medical care if: Your urine is still red or you see blood clots after you have urinated several times. You can't pass urine 8 hours after the test. You get a fever or chills. You have pain in your belly or your back just below your rib cage. This is also called flank pain. Watch closely for changes in your health, and be sure to contact your doctor if: You have pain or burning when you urinate. A burning feeling is normal for a day or two after the test, but call if it does not get better. You have a frequent urge to urinate but can pass only small amounts of urine. Your urine is pink, cloudy or smells bad. It is normal for the urine to have a pinkish color for 2 or 3 days after the test. But call if it does not get better. You do not get better as expected. Where can you learn more? Log into your personal health record on [email or web address] and enter P672 in the Education box to learn more about Ureteroscopy: What to Expect at Home. Current as of: June 25, 2015 Content Version: 108 8276-3072 [employer]. Care instructions adapted under license by your healthcare professional. If you have questions about a medical condition or this instruction, always ask your healthcare professional. [employer] disclaims any warranty or liability for your use of this information. Ureteral Stent Placement: What to Expect at Home Your Recovery A ureteral stent is a thin, hollow tube that is placed in the ureter to help urine pass from the kidney into the bladder. Ureters are the tubes that connect the kidneys to the bladder. You may have a small amount of blood in your urine for 1 to 3 days after the procedure. While the stent is in place, you may have to urinate more often, feel a sudden need to urinate, or feel like you cannot completely empty your bladder. You may feel some pain when you urinate or do strenuous activity. You also may notice a small amount of blood in your urine after strenuous activities. These side effects usually do not prevent people from doing their normal daily activities. You may have a thin string coming out of your urethra. Your urethra is the tube that carries urine from your bladder to outside your body. This string is attached to the stent. Try not to pull on thestring. The doctor will use the string to pull out the stent when you no longer need it. After the procedure, urine may flow better from your kidneys to your bladder. A ureteral stent may be left in place for several days or for as long as several months. Your doctor will take it out when you no longer need it. This care sheet gives you a general idea about how long it will take for you to recover. But each person recovers at a different pace. Follow the steps below to get better as quickly as possible. How can you care for yourself at home? Activity Rest when you feel tired. Getting enough sleep will help you recover. Avoid strenuous activities, such as bicycle riding, jogging, weight lifting, or aerobic exercise, until your doctor says it is okay. You may drive when you are no longer taking narcotic pain medicine and can quickly move your foot from the gas pedal to the brake as well as be able to look behind you shoulder without pain. Most people are able to return to work the day after the procedure. If your work requires intense activity, you may feel pain in your kidney area or get tired easily. If this happens, you may need todo less strenuous activities while the stent is in. Ask your doctor when it is okay for you to have sex. Diet You can eat your normal diet. If your stomach is upset, try bland, low-fat foods like plain rice, broiled chicken, toast, and yogurt. Drink plenty of fluids (unless your doctor tells you not to). Medicines Your doctor will tell you if and when you can restart your medicines. He or she will also give you instructions about taking any new medicines. If you take blood thinners, such as warfarin (Coumadin), clopidogrel (Plavix), or aspirin, be sure to talk to your doctor. He or she will tell you if and when to start taking those medicines again. Make sure that you understand exactly what your doctor wants you to do. Be safe with medicines. Take pain medicines exactly as directed. If the doctor gave you a prescription medicine for pain, take it as prescribed. If you are not taking a prescription pain medicine, ask your doctor if you can take an rolp-cmw-sxzcenm medicine. If you think your pain medicine is making you sick to your stomach: Take your medicine after meals (unless your doctor has told you not to). Ask your doctor for a different pain medicine. If your doctor prescribed antibiotics, take them as directed. Do not stop taking them just because you feel better. You need to take the full course of antibiotics. Follow-up care is a osborne part of your treatment and safety. Be sure to make and go to all appointments, and call your doctor if you are having problems. It's also a good idea to know your test resultsand keep a list of the medicines you take. When should you call for help? Call 911 anytime you think you may need emergency care. For example, call if: You passed out (lost consciousness). You have severe trouble breathing. You have sudden chest pain and shortness of breath, or you cough up blood. You have severe belly pain. Call your doctor now or seek immediate medical care if: Part or all of the stent comes out of your urethra. You have pain that does not get better after you take pain medicine. You have symptoms of a urinary infection. For example: You have blood or pus in your urine. You have pain in your back just below your rib cage. This is called flank pain. You have a fever, chills, or body aches. It hurts to urinate. You have groin or belly pain. You cannot control when you urinate, or you leak urine. Watch closely for changes in your health, and be sure to contact your doctor if you have any problems. Where can you learn more? Log into your personal health record on [email or web address] and enter B869 in the Education box to learn more about Ureteral Stent Placement: What to Expect at Home. Current as of: June 25, 2015 Content Version: 108 7087-9442 [employer]. Care instructions adapted under license by your healthcare professional. If you have questions about a medical condition or this instruction, always ask your healthcare professional. [employer] disclaims any warranty or liability for your use of this information. documented in this encounter* Attachments The following attachments cannot be sent through Care Everywhere. * Flank Pain (Greek) documented in this encounter* Instructions* Rob Ng, DO - 05/11/2020 Follow-up with your doctor within 2 days for recheck as well as to discuss ongoing outpatient evaluation and management. Do not take any sulfa-containing drugs to include Bactrim, list these as an allergy. Return to the emergency department for any new worsening or recurrent symptoms or concerns. * Attachments The following attachments cannot be sent through Care Everywhere. * UTI (Urinary Tract Infection): Female (Greek) * Allergic Reaction (Greek) * Headache (Greek) documented in this encounter* Attachments The following attachments cannot be sent through Care Everywhere. * Anemia: Iron Deficiency (Greek) * Vaginal Bleeding (Greek) documented in this encounter Assessments Diagnosis Acute cystitis with hematuria- Primary Acute cystitis Right flank pain Abdominal pain, unspecified site Kidney stone Calculus of kidney Diagnosis Vaginal yeast infection- Primary Candidiasis of vulva and vagina Diagnosis Acute cystitis without hematuria- Primary Acute cystitis Diagnosis Kidney stone- Primary Calculus of kidney Diagnosis Ureteral stone with hydronephrosis Diagnosis Left ureteral stone Diagnosis Ureteral stone Calculus of ureter Diagnosis Flank pain Abdominal pain, unspecified site History of kidney stones Personal history of urinary calculi Diagnosis Allergic reaction to drug, initial encounter- Primary Acute UTI Urinary tract infection, site not specified Diagnosis DUB (dysfunctional uterine bleeding)- Primary Other disorder of menstruation and other abnormal bleeding from female genital tract Iron deficiency anemia, unspecified iron deficiency anemia type Diagnosis Episode of heavy vaginal bleeding Diagnosis Screening for cervical cancer Screening for malignant neoplasm of the cervix Reason for Referral Status Reason Specialty Diagnoses / Procedures Referred By Contact Referred To Contact New Request Urology Diagnoses Kidney stone Carlos Smith MD [address] [place] [address] Pedro Pablo Degroot MD [address] [address] Status Reason Specialty Diagnoses / Procedures Re ferred By Contact Referred To Contact Open Radiology Diagnoses DUB (dysfunctional uterine bleeding) Procedures US PELVIS COMPLETE NON-OB TRANSABDOMINAL AND TRANSVAGINAL Joseline Cadet MD [address] [place] [address] Specialty Diagnoses / Procedures Referred By Contac t Referred To Contact Procedures US OB TRANSVAGINAL/CERVICAL LENGTH Jose Aden MD [address] [place] [address] Referral ID Status Reason Start Date Expiration Date Visits Re quested Visits Authorized [id number] Closed 11/20/2022 12/15/2023 1 1 Specialty Diagnoses / Procedures Referred By Contac t Referred To Contact Radiology Diagnoses Screening mammogram, encounter for Procedures LUCY AIDA DIGITAL SCREEN BILATERAL Nguyen Hernandez, SEED CLEANER OPERATOR - CNM [address] [facility] [address] [place] [address] Referral ID Status Reason Start Date Expiration Date Visits Re quested Visits Authorized [id number] Closed 06/17/2024 06/17/2025 1 1 Hospital Course * Preeti Garzon MD - 10/22/2019 4:53 PM EDT DISCHARGE SUMMARY Patient: Kallie Keyes Date of : 1980 Site: [facility] Family Provider: Desi Manjarrez MD Admit Date: 10/21/2019 Discharge Date/Time: 10/22/19 Evening Disposition: Home Clinical Summary Hospital Course: Kallie Keyes is a 38 y.o. female patient of Desi Manjarrez MD with a history of kidney stones. Transferred from [place] with 7 mm left UPJ stone with obstruction and pain.Had uneventful ureteroscopyand stone extraction Discharge Diagnoses: Left ureteral stone, right renal stone Surgeries: 10/22/19 CYSTOSCOPY WITH RETROGRADE STONE MANIPULATION STENT INSERTION WITH LASER Consults: No orders of the defined types were placed in this encounter. Allergies: Ceftriaxone Discharge Diet: Resume home diet Condition: Good Discharge Medications: Current Discharge Medication List START taking these medications Details !! ciprofloxacin HCl (Cipro) 500 MG tablet Take 1 (one) tablet (500 mg total) by mouth 2 (two) times a day for 7 days . Qty: 14 tablet, Refills: 0 !! ciprofloxacin HCl (Cipro) 500 MG tablet Take 1 (one) tablet (500 mg total) by mouth 2 (two) times a day for 7 days . Qty: 14 tablet, Refills: 0 !! HYDROcodone-acetaminophen (NORCO) 5-325 mg per tablet Take 1 (one) tablet by mouth every 6 (six)hours as needed for pain . Qty: 12 tablet, Refills: 0 Comments: 5 days Associated Diagnoses: Left ureteral stone !! HYDROcodone-acetaminophen (NORCO) 5-325 mg per tablet Take 1 (one) tablet by mouth every 6 (six)hours as needed for pain . Qty: 12 tablet, Refills: 0 Comments: 5 days Associated Diagnoses: Left ureteral stone !! oxybutynin (DITROPAN-XL) 10 MG 24 hr tablet Take 1 (one) tablet (10 mg total) by mouth daily for10 days . Qty: 10 tablet, Refills: 0 !! oxybutynin (DITROPAN-XL) 10 MG 24 hr tablet Take 1 (one) tablet (10 mg total) by mouth daily for10 days . Qty: 10 tablet, Refills: 0 !! phenazopyridine (PYRIDIUM) 100 MG tablet Take 1 (one) tablet (100 mg total) by mouth 3 (three) times a day for 10 days . Qty: 30 tablet, Refills: 0 !! phenazopyridine (PYRIDIUM) 100 MG tablet Take 1 (one) tablet (100 mg total) by mouth 3 (three) times a day for 10 days . Qty: 30 tablet, Refills: 0 !! - Potential duplicate medications found. Please discuss with provider. Physician(s) Family Provider: Desi Manjarrez MD, Address: [address] [facility] [address] Follow Up: Preeti Garzon MD [address] [id number] Follow up Please contact the office to schedule a post-operative follow up appointment Additional Information: Patient instructions, including activity, were given to the patient/family at discharge. Please seethe After Visit Summary in the electronic medical record for details. Time spent on discharge: < 30 minutes Completed by: Preeti Garzon MD on 10/22/19, 4:53 PM documented in this encounter History of Present Illness * Preeti Garzon MD - 10/31/2019 11:44 AM EDT Associated Order(s): Cystoscopy, Remove Calculus, Simple Post-Procedure Diagnose(s): Ureteral stone Cystoscopy, Remove Calculus, Simple Date/Time: 10/31/2019 11:44 AM Performed by: Preeti Garzon MD Authorized by: Preeti Garzon MD Verbal consent: obtained Written consent: not obtained Consent given by: patient Relevant documents: Relevent documents present and verified. Medical history, medications, allergies and physical assessment reviewed/completed Test results: test results available and properly labeled Site: site not marked Reason site not marked: N/A Relevant imaging studies available and labeled: Yes Preparation: Patient was prepped and draped in usual sterile fashion Local anesthesia used?: Yes Local anesthetic: Topical anestheticPatient sedated: no Patient tolerance: Patient tolerated the procedure well with no immediate complications Patient is 38-year-old white female with bilateral stones she underwent ureteroscopic stone extraction with laser lithotripsy. Her left-sided stent was removed today without difficulty. The patient had a calcium phosphate calcium oxalate stone mixture. Her electrolytes and calcium are normal. This was her first kidney stone. We discussed stone disease today and certainly encouraged much more aggressive hydration as this seems to be her predominant risk factor. We will see her back on an as-needed basis. documented in this encounter Additional Source Comments INFORMATION SOURCE (unrecogn ized section and content) DATE CREATED AUTHOR 01/28/2018 [facility] DATE CREATED AUTHOR AUTHOR'S ORGANIZ ATION [facility] DATE CREATED AUTHOR AUTHOR'S ORGANIZ ATION 10/31/2019 [facility] DATE CREATED AUTHOR AUTHOR'S ORGANIZ ATION 10/31/2019 [facility] DATE CREATED AUTHOR AUTHOR'S ORGANIZ ATION 10/31/2019 [facility] DATE CREATED AUTHOR AUTHOR'S ORGANIZ ATION 05/16/2020 [facility] DATE CREATED AUTHOR AUTHOR'S ORGANIZ ATION 08/28/2020 [facility] DATE CREATED AUTHOR AUTHOR'S ORGANIZ ATION 08/04/2022 [facility] DATE CREATED AUTHOR AUTHOR'S ORGANIZ ATION 11/23/2022 [facility] DATE CREATED AUTHOR AUTHOR'S ORGANIZ ATION 10/26/2023 [facility] DATE CREATED AUTHOR AUTHOR'S ORGANIZ ATION 11/15/2023 [facility] DATE CREATED AUTHOR AUTHOR'S ORGANIZ ATION 11/25/2023 [facility] DATE CREATED AUTHOR AUTHOR'S ORGANIZ ATION 12/06/2023 [facility] DATE CREATED AUTHOR AUTHOR'S ORGANIZ ATION 02/01/2024 [facility] DATE CREATED AUTHOR AUTHOR'S ORGANIZ ATION 04/10/2024 [facility] DATE CREATED AUTHOR AUTHOR'S ORGANIZ ATION 09/22/2024 [facility] Roe moreno Reason for Visit (unrecogniz ed section and content) Reason Comments Flank Pain x2 days - right side and sometimes left side Reason Comments Vaginal Discharge started [place] and i s white in color and thick- stating has yeast infection as well- took an old prescription of Amoxicillin for sore throat last week which pt relates to symptoms Reason Comments Urinary Pain reports urinary freq uency, burning and urgency since sunday Reason Comments Abdominal Pain Headache Fever Reason Comments Back Pain Nausea Status Reason Specialty Diagnoses / Procedures Re ferred By Contact Referred To Contact Diagnoses Ureteral stone with hydronephrosis Reason Comments Post-op 9 day post op ureter oscopic stone extraction. Here for cysto with left ureteral stent extraction Reason Comments Flank Pain Pt c/o back pain x 4 days and states hx of UTI. pain 5 /10. Reason Comments Headache Reason Comments Vaginal Bleeding Sudden onset of larg e blood clots from vagina. States is on her period. States this happened one other time 6 months prior Reason Comments Vaginal Bleeding [address] [facility] couple weeks ago, followed up with OB, fibroids found on ultrasound. Pt. Reports bleeding worsening. Reason Comments Vaginal Bleeding Pt C/O vaginal bleed ing and cramping since 0200 this morning. States she is 12 weeks . Intrauterine confirmed with ultrasound at doctor's office. Reason Comments Back Pain Pt reports left side d mid back pain starting last week and progressively getting worse. Specialty Diagnoses / Procedures Referred By Starla juarez Referred To Contact Diagnoses Uterine leiomyoma, unspecified location Uterine leiomyoma, unspecified location [D25.9] Procedures CO LAPS MYOMECTOMY EXC 1-4 MYOMAS 250 GM/< UTERINE MYOMECTOMY ROBOTIC- LAPAROSCOPIC Marlen Devi, DO [address] [place] [address] [facility] [address] [place] [address] Referral ID Status Reason Start Date Expiration Date Visits Re quested Visits Authorized [id number] 1 1 Reason Comments New Patient Specialty Diagnoses / Procedures Referred By Starla t Referred To Contact Ophthalmology Diagnoses Graves disease Thyroid eye disease Betzaida Sierra MD [address] [facility], [address] [place] [address] Ioana Clinton MD [address] [place] [address] [address] [place] [address] Referral ID Status Reason Start Date Expiration Date V isits Requested Visits Authorized [id number] Pending Review 02/04/2024 02/28/2025 1 1 Specialty Diagnoses / Procedures Referred By Contac t Referred To Contact Radiology Diagnoses Screening mammogram, encounter for Procedures LUCY AIDA DIGITAL SCREEN BILATERAL Nguyen Hernandez APRN - ERICK [address] [facility] [place] [address] Referral ID Status Reason Start Date Expiration Date Visits Re quested Visits Authorized [id number] Closed 06/17/2024 06/17/2025 1 1 Specialty Diagnoses / Procedures Referred By Contac t Referred To Contact Radiology Diagnoses Abnormal mammogram of left breast Procedures US BREAST LIMITED LEFT US BREASt COMPLETE LEFT Nguyen Hernandez APRN - CNM [address] [facility] [address] [place] [address] Referral ID Status Reason Start Date Expiration Date Visits Re quested Visits Authorized [id number] Open 08/11/2024 08/11/2025 1 1 Specialty Diagnoses / Procedures Referred By Contac t Referred To Contact Radiology Diagnoses Abnormal mammogram of left breast Procedures LUCY AIDA DIGITAL DIAGNOSTIC UNILATERAL LEFT LUCY DIGITAL DIAGNOSTIC W OR WO CAD LEFT Nguyen Hernandez APRN - [facility] [address] [facility] [address] [place] [address] Referral ID Status Reason Start Date Expiration Date Visits Re quested Visits Authorized [id number] Closed 08/11/2024 08/11/2025 1 1 Jessica Ramirez RN - 10/21/2019 1:39 PM Jessica Baxter RN - 10/21/2019 1:27 PM Jessica Baxter RN - 10/21/2019 12:56 PM Sophia Wills RN - 10/21/2019 9:43 AM EDT ED Notes (unrecognized secti on and content) Notified transfer center that [facility] eta 10 minutes, cancel [facility] Frannie calls from transfer center, pt assigned to room 327 bed 2 at [facility] eta 2-3 hours. Bre calls from transfer center, pt accepted at [facility] by Dr. Garzon, she will call back with bed assignment and EMS eta Pt aware of needing a urine sample. Cup placed on cart. Pt directed where the bathroom is and aware that is what we will be waiting on to do further testing Dr Janessa maynard for first evaluation of pt. ED PROVIDER NOTE [facility] NAME: Kallie Keyes AGE: 38 y.o. : 1980 VISIT DATE: 10/21/2019 CSN: [id number] PCP: Desi Manjarrez MD Chief Complaint Patient presents with Back Pain Nausea Pt is here today for possible kidney stones that she knows she has from May. She states that she had left pelvic pain that started last night and she was started to get nauseated with vomiting twice. She is alert and oriented with no other complications at thist judie Past Medical History: Diagnosis Date Hypothyroidism Kidney stones History reviewed. No pertinent surgical history. History reviewed. No pertinent family history. Social History Socioeconomic History Marital status: Spouse name: Not on file Number of children: Not on file Years of education: Not on file Highest education level: Not on file Occupational History Not on file Social Needs Financial resource strain: Not on file Food insecurity Worry: Not on file Inability: Not on file Transportation needs Medical: Not on file Non-medical: Not on file Tobacco Use Smoking status: Never Smoker Smokeless tobacco: Never Used Substance and Sexual Activity Alcohol use: Yes Comment: occasssionally Drug use: Never Sexual activity: Not on file Lifestyle Physical activity Days per week: Not on file Minutes per session: Not on file Stress: Not on file Relationships Social connections Talks on phone: Not on file Gets together: Not on file Attends confucianist service: Not on file Active member of club or organization: Not on file Attends meetings of clubs or organizations: Not on file Relationship status: Not on file Other Topics Concern Not on file Social History Narrative Not on file No current outpatient medications on file prior to encounter. Allergies not on file Review of Systems Patient Vitals for the past 24 hrs: BP Temp Pulse Resp SpO2 Height Weight 10/21/19 1159 108/64 85 16 98 % 10/21/19 0945 (!) 59 100 % 10/21/19 0930 (!) 57 99 % 10/21/19 0902 123/81 98.3 F (36.8 C) (!) 58 16 98 % 5' 5 74.8 kg (165 lb) Physical Exam Laboratory & Radiographic Imaging (if done): Results for orders placed or performed during the hospital encounter of 10/21/19 Lavender Top Result Value Ref Range Extra Tube Hold for add-ons. Gold Top Result Value Ref Range Extra Tube Hold for add-ons. Light Blue Top Result Value Ref Range Extra Tube Hold for add-ons. BMP Result Value Ref Range Sodium 140 135 - 145 mmol/L Potassium 3.5 3.5 - 5.1 mmol/L Chloride 108 98 - 108 mmol/L Bicarbonate 26 21 - 32 mmol/L Anion Gap 10 10 - 20 mmol/L Glucose 106 (H) 65 - 99 mg/dL BUN 16 8 - 25 mg/dL Creatinine 1.20 (H) 0.40 - 1.10 mg/dL eGFR 57 (L) >=60 mL/min/1.73 m2 BUN/Creatinine Ratio 13.3 10.0 - 20.0 Calcium 8.9 8.4 - 10.2 mg/dL Urinalysis Result Value Ref Range Color, Urine Yellow Colorless, Yellow Clarity, Urine Cloudy (A) Clear Specific Bertha 1.020 1.005 - 1.025 pH, Urine 8.5 (H) 5.0 - 7.0 Protein, Urine 30 (A) Negative mg/dL Glucose, Urine Negative Negative mg/dL Ketones, Urine Negative Negative mg/dL Bilirubin, Urine Negative Negative Urobilinogen, Urine <2.0 <2.0 mg/dL Blood, Urine Small (A) Negative Nitrite, Urine Negative Negative Leukocyte Esterase, Urine Negative Negative WBCs, Urine 1 0 - 5 /hpf RBCs, Urine 1 0 - 3 /hpf Bacteria, Urine None Seen None Seen /hpf Squamous Epithelial 20 (H) 0 - 4 /hpf Calcium Oxalate Crystals Rare (A) None Seen /hpf Amorphous Crystals Many (A) None Seen, Rare /hpf Mucus, Urine Rare None Seen, Rare /lpf HCG (QUALITATIVE) Result Value Ref Range Beta-hCG Qual Negative Negative Hepatic Function Panel (LFT) Result Value Ref Range Total Protein 7.5 6.0 - 8.0 g/dL Albumin 3.8 3.2 - 5.2 g/dL Total Bilirubin 0.5 0.0 - 1.3 mg/dL Bilirubin, Direct 0.1 0.0 - 0.4 mg/dL Alkaline Phosphatase 68 40 - 140 U/L AST 19 0 - 45 U/L ALT 22 0 - 40 U/L Lipase Result Value Ref Range Lipase 157 73 - 393 U/L CBC Auto Differential Result Value Ref Range WBC 11.22 (H) 4.50 - 11.00 K/mcL RBC 4.32 4.00 - 5.20 M/mcL Hemoglobin 12.8 12.0 - 16.0 g/dL Hematocrit 36.9 36.0 - 46.0 % MCV 85.4 80.0 - 100.0 fL MCH 29.6 26.0 - 34.0 pg MCHC 34.7 31.0 - 37.0 g/dL Platelets 283 150 - 400 K/mcL RDW - CV 12.3 11.6 - 14.8 % MPV 9.9 9.0 - 15.5 fL Neutrophils 83.3 % Lymphocytes 10.4 % Monocytes 5.4 % Eosinophils 0.4 % Basophils 0.3 % IG Percent 0.20 % Neutrophils Abs 9.34 (H) 1.70 - 7.00 K/mcL Lymphocytes Abs 1.17 0.90 - 4.00 K/mcL Monocytes Abs 0.61 0.30 - 0.90 K/mcL Eosinophils Abs 0.05 0.00 - 0.50 K/mcL Basophils Abs 0.03 0.00 - 0.30 K/mcL IG Absolute 0.02 0.00 - 0.30 K/mcL CT Kidney Stone Preliminary Result Mild left hydroureteronephrosis with 6 x 7 mm proximal obstructing ureteral stone. Nonobstructing right renal calculus. IUD in place. [employer] Workstation ID: [id number] Procedures MDM Number of Diagnoses or Management Options Ureteral stone with hydronephrosis: Diagnosis management comments: CT abdomen pelvis showing 6 to 7 mm left ureteral stone with hydronephrosis, based on the stone size, it is not expected to pass by itself, plan to transfer to [facility] with urology service, patient is willing to go anywhere but prefer somewhere closer. Currently symptoms controlled. . . Clinical Impression: 1. Ureteral stone with hydronephrosis ED Disposition ED Disposition Condition Comment Transfer to Another Facility Kallie Keyes to be transferred to [place] or somewhere closer like [place] or [place] Follow-up Information Follow-up information has not been specified. Contact information for after-discharge care Follow-up information has not been specified. Eloy Escalante MD 10/21/19 1201 Pt is here today for possible kidney stones that she knows she has from [place]. She states that she had left pelvic pain that started last night and she was started to get nauseated with vomiting twice. She is alert and oriented with no other complications at thist judie documented in this encounter ED PROVIDER NOTE [facility] EMERGENCY DEPARTMENT NAME: Kallie Keyes AGE: 39 y.o. : 1980 VISIT DATE: 05/10/2020 CSN: [id number] PCP: Desi Manjarrez MD Chief Complaint Patient presents with Headache 39-year-old female presents to the emergency department for evaluation of what she feels is an allergic reaction. Patient states that she was recently seen at an outside hospital, diagnosed with UTI prescribed Bactrim. Took first dose this evening at around 8:00. States that she later developed generalized pruritus, nausea and vomiting, headache. This began while at rest. No associated visual changes confusion speech changes motor or sensory deficits. No fever. No chest pain palpitations or shortness of breath. No family history of aneurysm or subarachnoid hemorrhage Past Medical History: Diagnosis Date Anxiety Depression Hypothyroidism Kidney stones Past Surgical History: Procedure Laterality Date CYSTO DEEPIKA LASER, RETRO, URETEROSCOPY, STENT (USUAL) Bilateral 10/22/2019 Procedure: CYSTOSCOPY WITH RETROGRADE STONE MANIPULATION STENT INSERTION WITH LASER; Surgeon: Preeti Garzon MD; Location: [facility] Main OR; Service: Urology History reviewed. No pertinent family history. Social History Socioeconomic History Marital status: Spouse name: Not on file Number of children: Not on file Years of education: Not on file Highest education level: Not on file Occupational History Not on file Social Needs Financial resource strain: Not on file Food insecurity Worry: Not on file Inability: Not on file Transportation needs Medical: Not on file Non-medical: Not on file Tobacco Use Smoking status: Never Smoker Smokeless tobacco: Never Used Substance and Sexual Activity Alcohol use: Yes Comment: occasssionally Drug use: Never Sexual activity: Not on file Lifestyle Physical activity Days per week: Not on file Minutes per session: Not on file Stress: Not on file Relationships Social connections Talks on phone: Not on file Gets together: Not on file Attends confucianist service: Not on file Active member of club or organization: Not on file Attends meetings of clubs or organizations: Not on file Relationship status: Not on file Other Topics Concern Not on file Social History Narrative Not on file Previous Medications Medication Sig fluconazole (DIFLUCAN) 100 MG tablet TAKE 1 TABLET BY MOUTH for 1 (ONE) dose after completing oral antibiotics HYDROcodone-acetaminophen (NORCO) 5-325 mg per tablet TAKE 1 TABLET BY MOUTH EVERY 8 HOURS NEEDED FOR PAIN for up to 3 (THREE) days ondansetron (ZOFRAN-ODT) 4 MG disintegrating tablet Dissolve 4 mg on top of tongue every 6 (six) hours as needed TAKE NEEDED FOR NAUSEA AND VOMITING . sulfamethoxazole-trimethoprim (BACTRIM DS,SEPTRA DS) 800-160 mg per tablet Take 1 tablet by mouth 2 (two) times a day for 7 days . tamsulosin (FLOMAX) 0.4 mg capsule TAKE 1 CAPSULE BY MOUTH DAILY FOR 7 DAYS Allergies Allergen Reactions Ceftriaxone Rash Review of Systems Gastrointestinal: Positive for nausea and vomiting. Skin: Pruritus without rash Neurological: Positive for headaches. All other systems reviewed and are negative. Patient Vitals for the past 24 hrs: BP Temp Temp src Pulse Resp SpO2 Height Weight 05/10/20 2243 (!) 119/90 97.6 F (36.4 C) Oral (!) 119 (!) 24 100 % 5' 5 77.1 kg (170 lb) Physical Exam Vitals signs and nursing note reviewed. Constitutional: General: She is not in acute distress. Appearance: Normal appearance. She is not ill-appearing, toxic-appearing or diaphoretic. HENT: Head: Normocephalic and atraumatic. Right Ear: Tympanic membrane, ear canal and external ear normal. Left Ear: Tympanic membrane, ear canal and external ear normal. Nose: Nose normal. Mouth/Throat: Mouth: Mucous membranes are moist. Pharynx: Oropharynx is clear. No posterior oropharyngeal erythema. Eyes: Conjunctiva/sclera: Conjunctivae normal. Neck: Musculoskeletal: Normal range of motion and neck supple. Cardiovascular: Rate and Rhythm: Normal rate and regular rhythm. Heart sounds: Normal heart sounds. Comments: Heart rate 96 on my exam Pulmonary: Effort: Pulmonary effort is normal. Breath sounds: Normal breath sounds. Abdominal: Tenderness: There is no abdominal tenderness. Musculoskeletal: Normal range of motion. Right lower leg: No edema. Left lower leg: No edema. Skin: General: Skin is warm and dry. Findings: No rash. Neurological: General: No focal deficit present. Mental Status: She is alert and oriented to person, place, and time. Cranial Nerves: No cranial nerve deficit. Sensory: No sensory deficit. Motor: No weakness. Coordination: Coordination normal. Psychiatric: Mood and Affect: Mood normal. Behavior: Behavior normal. Laboratory & Radiographic Imaging (if done): Results for orders placed or performed during the hospital encounter of 05/10/20 POC CBC and Differential Result Value Ref Range WBC 14.50 (H) 4.50 - 11.00 K/mcL RBC 4.59 4.00 - 5.20 M/mcL Hemoglobin 13.7 12.0 - 16.0 g/dL Hematocrit 39.8 36.0 - 46.0 % MCV 86.7 80.0 - 100.0 fL MCH 29.8 26.0 - 34.0 pg MCHC 34.4 31.0 - 37.0 g/dL RDW - CV 12.9 11.6 - 14.8 % Platelets 308 150 - 400 K/mcL MPV 11.2 9.4 - 12.4 fL Neutrophils 83.3 % Lymphocytes 15.2 % Mixed 1.5 % Neutrophil Abs 12.1 (H) 1.7 - 7.0 K/mcl Lymphocyte Abs 2.2 0.9 - 4.0 K/mcl Mixed Abs 0.2 K/mcl POC Basic Metabolic Panel Result Value Ref Range Glucose 139 (H) 65 - 99 mg/dL BUN 10 8 - 25 mg/dL Creatinine 0.67 0.40 - 1.10 mg/dL GFR 111 >=60 mL/min/1.73 m2 Sodium 142 135 - 145 mmol/L Potassium 3.1 (L) 3.5 - 5.1 mmol/L Chloride 103 98 - 108 mmol/L TCO2 25 21 - 32 mmol/L Ionized Calcium 4.7 4.5 - 5.3 mg/dL POC Urinalysis Dipstick, Auto Result Value Ref Range Spec Grav, UA >=1.030 (H) 1.005 - 1.025 pH, UA 5.0 5.0 - 7.0 Protein, UA 100 (A) Negative mg/dL Glucose, UA Negative Negative mg/dL Ketones, UA Negative Negative mg/dL Bilirubin, UA Negative Negative Urobilinogen, UA 0.2 <2.0 mg/dL Blood, UA Large (A) Negative Nitrite, UA Negative Negative Leukocyte Esterase, UA Moderate (A) Negative POC , Urine Result Value Ref Range POC Preg Test, Ur Negative Negative CT Head Without Contrast (Stroke) Final Result No evidence for acute intracranial hemorrhage or mass effect. No acute abnormality is seen on this noncontrast head CT. However, please note MRI is more sensitive for detection of acute/hyperacute stroke. Findings discussed with 10 minutes in the ED at 11:53 p.m.. Workstation ID: [id number] CT Kidney Stone Final Result Mild diffuse wall thickening of the urinary bladder is seen, suggestive of inflammatory process/cystitis. Please correlate clinically. No evidence for hydronephrosis or nephroureterolithiasis bilaterally. Normal appearing appendix is visualized. Intrauterine device in place. Workstation ID: [id number] Procedures MDM Number of Diagnoses or Management Options Acute UTI: Allergic reaction to drug, initial encounter: Diagnosis management comments: 2304: Current heart rate is 98, SPO2 100% on room air, respiratory rate 18, subjectively feels much improved. 0010: Blood pressure 105/61, SPO2 97% on room air, heart rate 98. CT of the head was obtained secondary to the patient's headache, this was normal per radiology. Presentation is not consistent with subarachnoid hemorrhage CVA TIA encephalitis or meningitis. Patient has no risk factors, blood pressure normal, normal neurologic exam. Secondary to the patient's evidence of hematuria and UTI, CT of the abdomen and pelvis was obtained. Results as notated. Potassium replacement provided. Patient has been advised to discontinue Bactrim. Will be given a prescription for Macrobid with first dose tonight. Epinephrine not indicated for discharge, no evidence of anaphylaxis, agrees to avoid sulfa-containing drugs to include Bactrim The patient has been informed that they may have pre-hypertension or hypertension based on a blood pressure reading in the Emergency Department. I recommend that the patient call the primary care provider listed on their discharge instructions or a physician of their choice as soon as possible to arrange follow-up in the next 4 weeks for further evaluation of possible pre-hypertension or hypertension. . Clinical Impression: 1. Allergic reaction to drug, initial encounter 2. Acute UTI ED Disposition ED Disposition Condition Comment Discharge Good Kallie Keyes discharged to home/self care in stable condition. Follow-up Information 1. Desi Manjarrez MD. Specialty: Family Medicine [address] [place] [address] Contact information for after-discharge care Follow-up information has not been specified. New Prescriptions nitrofurantoin, macrocrystal-monohydrate, (MACROBID) 100 MG capsule Take 1 (one) capsule (100 mg total) by mouth 2 (two) times a day for 7 days . Rob Ng DO 05/11/20 0018 PT was seen at [facility] two days ago and was dx [facility] UTI being treated with Bactrim. took med at approx 2000 this pm and had onset of headache, not feeling well, States feet felt itchy. Dr. Berenice maynard. Pt vomiting. documented in this encounter Preeti Garozn MD - 10/22/2019 1:12 PM EDTPreeti Garzon MD - 10/21/2019 4:27 PM EDT H&P Notes (unrecognized sect ion and content) INTERVAL HISTORY AND PHYSICAL Patient Name: Kallie Keyes Admit Date: MR #: [id number] : 1980 The H&P has been reviewed and the patient has been examined. I concur with the findings of the H&P. There are no significant changes. It is appropriate to proceed with the planned procedure. Preeti Garzon MD 10/22/2019 1:12 PM HISTORY AND PHYSICAL Patient Name: Kallie Keyes Admit Date: MR #: [id number] : 1980 Physicians: Desi Manjarrez MD (Family); Eloy Escalante MD (Referring) Chief Complaint/Reason for Visit: Flank pain History of Present Illness: Kallie Keyes is a 38 y.o. female presenting from [facility] with c/o left flank pain. The patient has been having intermittent pain predominantly in the left side for several months now. Started having some significant pain last night got progressively worse this morning and presented to the emergency room a CT shows a 6 x 7 stone in the proximal ureter with moderate hydronephrosis. This was associated with some nausea and vomiting. She continues to be quite uncomfortable. She also has a 5 to 6 mm stone in the right kidney that is nonobstructing at the present time. The patient has known she has had a stone for a few months has never passed a stone has never had a stone surgically removed. The patient generally has no voiding symptoms. History: Past Medical History: Diagnosis Date Hypothyroidism Kidney stones History reviewed. No pertinent surgical history. History reviewed. No pertinent family history. Social History Socioeconomic History Marital status: Spouse name: Not on file Number of children: Not on file Years of education: Not on file Highest education level: Not on file Occupational History Not on file Social Needs Financial resource strain: Not on file Food insecurity Worry: Not on file Inability: Not on file Transportation needs Medical: Not on file Non-medical: Not on file Tobacco Use Smoking status: Never Smoker Smokeless tobacco: Never Used Substance and Sexual Activity Alcohol use: Yes Comment: occasssionally Drug use: Never Sexual activity: Not on file Lifestyle Physical activity Days per week: Not on file Minutes per session: Not on file Stress: Not on file Relationships Social connections Talks on phone: Not on file Gets together: Not on file Attends confucianist service: Not on file Active member of club or organization: Not on file Attends meetings of clubs or organizations: Not on file Relationship status: Not on file Other Topics Concern Not on file Social History Narrative Not on file Living Arrangements: Children Support Systems: Children Allergy Information: I have reviewed the patient's allergies. Patient has no known allergies. Home Medications: No current outpatient medications on file as of 10/21/2019. Review of Systems: The following system(s) were reviewed and pertinent findings noted: Constitutional:No fever, no weight loss Eyes:No diplopia ENT:No sinus drainage CV:No chest pain. No ankle swelling Resp:No dyspnea. No wheezing :No dysuria Neuro:No headache Integumentary:No skin rash MuscSkel:No arthralgias Endo:No polyuria Psych:No unusual mood swings All other systems reviewed and negative other than HPI Physical Examination: Vital Signs: BP 100/63 (BP Location: Right arm, Patient Position: Sitting) Pulse (!) 55 Temp 97.8 F (36.6 C) (Oral) Resp 16 Ht 5' 5 Wt 75 kg (165 lb 5.5 oz) SpO2 98% BMI 27.51 kg/m BP 100/63 (BP Location: Right arm, Patient Position: Sitting) Pulse (!) 55 Temp 97.8 F (36.6 C) (Oral) Resp 16 Ht 5' 5 Wt 75 kg (165 lb 5.5 oz) SpO2 98% BMI 27.51 kg/m General appearance: alert, appears stated age and cooperative Neck: no adenopathy, no carotid bruit, no JVD, supple, symmetrical, trachea midline and thyroid not enlarged, symmetric, no tenderness/mass/nodules Lungs: clear to auscultation bilaterally Heart: regular rate and rhythm, S1, S2 normal, no murmur, click, rub or gallop Abdomen: Patient has significant left anterior abdominal tenderness as well as left flank tenderness Extremities: extremities normal, atraumatic, no cyanosis or edema Neurologic: Grossly normal EKG: EKG: there are no previous tracings available for comparison. ECG: No results found for this or any previous visit. ECHO: No results found for this or any previous visit. Chest XRay: No results found for this or any previous visit. Temp: [97.8 F (36.6 C)-98.3 F (36.8 C)] 97.8 F (36.6 C) Heart Rate: [55-85] 55 Resp: [14-18] 16 BP: (100-123)/(63-81) 100/63 No intake/output data recorded. No intake/output data recorded. Laboratory and Additional Data Reviewed: Laboratory 10/21/19 4:31 PM Radiology 10/21/19 4:31 PM No results found for: PSASCRN Lab Results Component Value Date WBC 11.22 (H) 10/21/2019 HGB 12.8 10/21/2019 HCT 36.9 10/21/2019 MCV 85.4 10/21/2019 PLT 283 10/21/2019 RBC 4.32 10/21/2019 Assessment and Plan: Patient is a 38-year-old white female with ongoing pain and nausea from a 6 x 7 stone in the proximal ureter causing moderate hydronephrosis. She has a stone in the right kidney as well. The plan will be for stone manipulation with laser lithotripsy tomorrow. No new Assessment & Plan notes have been filed under this hospital service since the last note was generated. Service: Urology documented in this encounter Op Note - Preeti Garzon MD - 10/22/2019 4:05 PM EDTPlan of Care - Leanna Gonzalez RN - 10/22/2019 5:01 AM EDT Miscellaneous Notes (unrecog nized section and content) OPERATIVE REPORT Date of Service: 10/22/2019 Clinician: Preeti Garzon MD OR Staff: Stave Inspector: Shira Lassiter RN Laser Staff: Lindsey Dillard RN Freight Forwarder: Jade Ramesh, TECHNOLOGIST Scrub Person: ST [facility] Anesthesia Staff: Anesthesiologist: Florentino Euceda MD; Lou Lindquist MD DIRECTOR OF ENROLLMENT: Keira Fontenot CRNA Surgeon(s):Surgeon(s) and Role: * Preeti Garzon MD - Primary Patient Name: Kallie Keyes MR #: [id number] PREOPERATIVE DIAGNOSIS Left ureteral stone. Right renal stone POSTOPERATIVE DIAGNOSIS Left ureteral stone. Right renal stone PROCEDURES PERFORMED 1. Cystoscopy. 2. Left ureteroscopy with holmium laser lithotripsy and stone extraction. 3. Placement of Left JJ ureteral stent 4. Right flexible ureteroscopy with holmium laser lithotripsy and stone extraction ANESTHESIA General anesthesia. IMPLANTS Left double-J ureteral stent. COMPLICATIONS None. DISPOSITION Stable, to recovery room. EBL Minimal SPECIMEN Stone for analysis INDICATIONS FOR THE PROCEDURE Kallie Keyes is a 38 y.o. y/o female with a left 7 mm proximal ureteral calculus. Risks, benefits, and alternatives were discussed with the patient; they elected to proceed with ureteroscopic management. The risks of the procedure included bleeding, infection, injury to bladder, kidney, ureter, and need for further procedures were discussed with the patient preoperatively. They voiced understanding of these risks and gave their written consent to proceed. DESCRIPTION OF THE PROCEDURE On 10/22/2019, after receiving a dose of intravenous antibiotics, the patient was taken to the operating room and placed supine on the operating room table. After the induction of general anesthesia, She was repositioned in the dorsal lithotomy position and the external genitalia were prepped and draped in the standard sterile surgical fashion. Garcia cystoscopy was performed with a 22 Scottish rigid cystourethroscope which revealed the bladder as free of any gross tumors, masses, or lesions. The left ureteral orifice was intubated with an open end ureteral catheter and a retrograde pyelogram was performed; please see separate dictation for details. An 0.35 glide wire was then passed into the upper collecting system under fluoroscopic control. A Navigator sheath was placed and then I proceeded with flexible ureteroscopy where I encountered the stone in its expected position. The stone was rather densely impacted in the proximal ureter. I was able to fragment the stone with the holmium laser fiber and I was able to grasp and remove all visible stone fragments. The scope was withdrawn under direct vision, taking care to visualize the proximal, mid, distal ureter which was free of additional stone disease. A double-J ureteral stent was passed over the safety wire in the standard fashion, where an excellent curl was in the kidney as well as in the bladder when the wire was removed. Of note, the string was not left on the stent. An open-ended catheter was then placed to the right ureteral orifice we advanced this up toward the renal pelvis a bit of contrast was injected which was outlining a normal-appearing collecting system I advanced a wire into the renal pelvis and then the navigator sheath was placed into the proximal ureter flexible ureteroscope was advanced in the lower pole we found a 5 to 6 mm stone still adherent in the lower pole calyx 200 m laser fiber was utilized to fragment the stone into several pieces the largest of these pieces were extracted with a 0 tip basket there was still a few residual fragments in the extreme lower pole that could not be engaged with the basket these are small enough they should pass spontaneously. The ureter was inspected all the way down and no stent was deemed necessary on the right side. The bladder was drained. The patient was returned to the supine position, awoken, extubated, and transferred to the recovery room, having tolerated the procedure well, without complication. PROCEDURE Retrograde pyelogram. TECHNIQUE The left ureteral orifice was intubated with a dual-lumen ureteral catheter, through which 7 mL of Visipaque was instilled, performing retrograde pyelography. INTERPRETATION Contrast fills a normal ureter to the level of a large filling defect in the proximal ureter. Some contrast does pass proximal to this defect, opacifying a moderately dilated proximal ureter and renal pelvis with blunted calices. IMPRESSION Moderate hydroureteronephrosis to the level of the proximal ureteral filling defect consistent with the patient's known ureteral calculus. Surgeon(s) and Role: * Preeti Garzon MD - Primary Problem: Pain Goal: Manage acute pain Outcome: Partially Met Goal: Manage chronic pain Outcome: Partially Met Goal: Reduced pain sensation Outcome: Partially Met Goal: Achievement of comfort function goal Outcome: Partially Met documented in this encounter Care Teams (unrecognized sec tion and content) Applications Developer Relationship Specialty Start Date End Date Desi Manjarrez MD [address] [place] [address] PCP - General 05/08/15 Applications Developer Relationship Specialty Start Date End Date Desi Manjarrez MD [address] [place] [address] PCP - General 05/08/15 Applications Developer Relationship Specialty Start Date End Date Desi Manjarrez MD [address] [place] [address] PCP - General 05/08/15 Applications Developer Relationship Specialty Start Date End Date Desi Manjarrez MD [address] [place] [address] PCP - General 05/08/15 Applications Developer Relationship Specialty Start Date End Date Desi Manjarrez MD [address] [place] [address] PCP - General 05/08/15 Applications Developer Relationship Specialty Start Date End Date Desi Manjarrez MD [address] [place] [address] PCP - General Family Medicine 07/28/19 Applications Developer Relationship Specialty Start Date End Date Desi Manjarrez MD [address] [place] [address] PCP - General 05/08/15 Applications Developer Relationship Specialty Start Date End Date Desi Manjarrez MD [address] [place] [address] PCP - General Family Medicine 07/28/19 Applications Developer Relationship Specialty Start Date End Date Desi Manjarrez MD [address] [place] [address] PCP - General 05/08/15 Applications Developer Relationship Specialty Start Date End Date Desi Manjarrez MD [facility] [place] [address] PCP - General Family Medicine 07/28/19 Applications Developer Relationship Specialty Start Date End Date Desi Manjarrez MD [address] [place] [address] PCP - General 05/08/15 Applications Developer Relationship Specialty Start Date End Date Desi Manjarrez MD [address] [place] [id number] PCP - General Family Medicine 07/28/19 Applications Developer Relationship Specialty Start Date End Date Desi Manjarrez MD [address] [place] [id number] PCP - General 05/08/15 Applications Developer Relationship Specialty Start Date End Date Desi Manjarrez MD [address] [place] [id number] PCP - General 05/08/15 Ordered Prescriptions (unrec ognized section and content) Prescription Sig Dispensed Refills Start Date End Da te ketorolac (TORADOL) 10 MG tablet Take 1 tablet by mouth every 6 hours as needed for Pain 10 tablet 0 12/26/2021 12/26/2022 Prescription Sig Dispensed Refills Start Date End Da te HYDROcodone-acetaminophe n (NORCO) 5-325 MG per tabletIndications:Postop erative pain Take 1 tablet by mouth every 6 hours as needed for Pain for up to 5 days. Intended supply: 5 days. Take lowest dose possible to manage pain Max Daily Amount: 4 tablets 10 tablet 0 02/18/2024 02/23/2024 ketorolac (TORADOL) 10 MG tablet Take 1 tablet by mouth every 6 hours as needed for Pain 20 tablet 0 02/18/2024 02/17/2025 Scheduled Active and Recently Administ ered Medications (unrecognized section and content) Medication Order 12/24/2021 12/25/2021 12/26/2021 acetaminophen (TYLENOL) tablet 650 mg (COMPLETED) 650 mg, Oral, ONCE, 1 dose, On Sun12/26/21 at 1415, Maximum dose of acetaminophen is 4000 mg from all sources in 24 hours., Pre-op (day of surgery) 1406 (Given - Provid er: Anusha Osman RN) dimenhyDRINATE (DRAMAMINE) tablet 50 mg (COMPLETED) 50 mg, Oral, ONCE, 1 dose, On Sun12/26/21 at 1415, Pre-op (day of surgery) 1406 (Given - Provid er: Anusha Osman RN) sodium chloride flush 0.9 % injection 5-40 mL 5-40 mL, IntraVENous, EVERY 12 HOURS SCHEDULED (2 times per day), First dose on Sun12/26/21 at 2100, Until Discontinued, For Line Patency: Peripheral IV = 5 mL; Midline or Central Line = 10 mL/lumen. If following IV push medication, administer flush at same rate as the IV push. Flush volume is determined by type of infusion therapy being given. For non-viscous solutions use: Peripheral IV = 5 mL Midline or Central Line = 10 mL/lumen For viscous solutions (i.e. blood components, parenteral nutrition, contrast media, or after obtaining blood sample) use: Peripheral IV = 10 mL Midline or Central Line = 20 mL/lumen 2099 (Due) sodium chloride flush 0.9 % injection 5-40 mL 5-40 mL, IntraVENous, EVERY 12 HOURS SCHEDULED (2 times per day), First dose on Sun12/26/21 at 2100, Until Discontinued, For Line Patency: Peripheral IV = 5 mL; Midline or Central Line = 10 mL/lumen. If following IV push medication, administer flush at same rate as the IV push. Flush volume is determined by type of infusion therapy being given. For non-viscous solutions use: Peripheral IV = 5 mL Midline or Central Line = 10 mL/lumen For viscous solutions (i.e. blood components, parenteral nutrition, contrast media, or after obtaining blood sample) use: Peripheral IV = 10 mL Midline or Central Line = 20 mL/lumen, PACU only 2100 (Due) Continuous Medication Order 12/24/2021 12/25/2021 12/26/2021 lactated ringers infusion IntraVENous, at 100 mL/hr, CONTINUOUS, Starting on Sun12/26/21 at 1415, Pre-op (day of surgery) 1414 (New Bag - Prov ider: Anusha Osman RN)1640 (Stopped - Provider: Kassandra Field RN) PRN Medication Order 12/24/2021 12/25/2021 12/26/2021 0.9 % sodium chloride infusion IntraVENous, at 5-250 mL/hr, PRN, if patient receiving piggyback infusions and maintenance fluids are not ordered OR KVO fluids to protect IV site / prevent frequent line interruptions/ long duration, Starting on Sun12/26/21 at 1618, For piggyback infusion, administer at same rate as piggyback for a total of 25 mL. Enter 25 mL into dose field and piggyback rate into rate field of order. If piggyback is infusing at a rate less than 100 mL/hr, enter 25 mL into dose field and 100 mL/hr into rate field of order. For KVO fluids, enter rate of 20 mL/hr or less into rate field of order. 0.9 % sodium chloride infusion IntraVENous, at 5-250 mL/hr, PRN, if patient receiving piggyback infusions and maintenance fluids are not ordered OR KVO fluids to protect IV site / prevent frequent line interruptions/ long duration, Starting on Sun12/26/21 at 1618, For piggyback infusion, administer at same rate as piggyback for a total of 25 mL. Enter 25 mL into dose field and piggyback rate into rate field of order. If piggyback is infusing at a rate less than 100 mL/hr, enter 25 mL into dose field and 100 mL/hr into rate field of order. For KVO fluids, enter rate of 20 mL/hr or less into rate field of order., PACU only fentaNYL (SUBLIMAZE) injection 25 mcg 25 mcg, IntraVENous, EVERY 5 MIN PRN, 2 doses, Starting on Sun12/26/21 at 1618, Until Discontinued, Pain Moderate (4-6), For Phase I. If Phase II oral narcotics have been administered in the last 60 minutes, do not administer IV narcotics unless specifically approved by provider., PACU only oxyCODONE (ROXICODONE) immediate release tablet 5 mg (COMPLETED) 5 mg, Oral, PRN, 1 dose, Starting on Sun12/26/21 at 1618, Until Sun12/26/21 at 1623, Pain Moderate (4-6), PHASE II, PACU only 1623 (Given - Provid er: Kassandra Field RN) sodium chloride flush 0.9 % injection 5-40 mL 5-40 mL, IntraVENous, PRN, Starting on Sun12/26/21 at 1618, Until Discontinued, Line Care, After every IV line use, For Line Patency: Peripheral IV = 5 mL; Midline or Central Line = 10 mL/lumen. If following IV push medication, administer flush at same rate as the IV push. Flush volume is determined by type of infusion therapy being given. For non-viscous solutions use: Peripheral IV = 5 mL Midline or Central Line = 10 mL/lumen For viscous solutions (i.e. blood components, parenteral nutrition, contrast media, or after obtaining blood sample) use: Peripheral IV = 10 mL Midline or Central Line = 20 mL/lumen sodium chloride flush 0.9 % injection 5-40 mL 5-40 mL, IntraVENous, PRN, Starting on Sun12/26/21 at 1618, Until Discontinued, Line Care, After every IV line use, For Line Patency: Peripheral IV = 5 mL; Midline or Central Line = 10 mL/lumen. If following IV push medication, administer flush at same rate as the IV push. Flush volume is determined by type of infusion therapy being given. For non-viscous solutions use: Peripheral IV = 5 mL Midline or Central Line = 10 mL/lumen For viscous solutions (i.e. blood components, parenteral nutrition, contrast media, or after obtaining blood sample) use: Peripheral IV = 10 mL Midline or Central Line = 20 mL/lumen, PACU only Scheduled Medication Order 11/18/2022 11/19/2022 11/20/2022 Acetaminophen (TYLENOL) tablet 650 mg (COMPLETED) 650 mg, Oral, ONCE, 1 dose, On Sun11/20/22 at 0515, 0446 (Given - Provid er: Radha Fournier RN) Methylergonovine (METHERGINE) injection 200 mcg (COMPLETED) 200 mcg, Intramuscular, ONCE, 1 dose, On Sun11/20/22 at 0630, Notify provider prior to giving dose if BP > 140/90 mmHg. 0657 (Given - Provid er: Radha Fournier RN) Morphine (PF) injection 2 mg (COMPLETED) 2 mg, Intravenous, ONCE, 1 dose, On Sun11/20/22 at 0615 0544 (Given - Provid er: Radha Fournier RN) Morphine sulfate (PF) injection 4 mg (COMPLETED) 4 mg, Intravenous, ONCE, 1 dose, On Sun11/20/22 at 0400 0325 (Given - Provid er: Patricia Mcdowell RN) Ondansetron 4mg/2ml (ZOFRAN) injection 4 mg (COMPLETED) 4 mg, Intravenous, ONCE, 1 dose, On Sun11/20/22 at 0330 0325 (Given - Provid er: Patricia Mcdowell RN) Sodium chloride 0.9% IV solution 1,000 mL (COMPLETED) 1,000 mL, Intravenous, ONCE, 1 dose, On Sun11/20/22 at 0400 0325 ($$New Bag$$ - Provider: Patricia Mcdowell RN)0541 (Stopped - Provider: Radha Fournier RN) Continuous Medication Order 11/18/2022 11/19/2022 11/20/2022 Sodium chloride 0.9% IV solution Intravenous, at 125 mL/hr, CONTINUOUS, Starting on Sun11/20/22 at 0330, Until Sun11/20/22 at 0954 0447 ($$New Bag$$ - Provider: Radha Fournier RN)0830 (Stopped - Provider: Vianey Wells RN) Scheduled Medication Order 11/27/2023 2023 11/29/2023 Cyclobenzaprine (FLEXERIL) tablet 10 mg (COMPLETED) 10 mg, Oral, ONCE, 1 dose, On Sun11/29/23 at 2215, Dispense to home- home pack 2150 (Given - Provid er: Janessa Breen RN - Comment: 1 tab given to pt to take home. med labeled.) predniSONE (DELTASONE) tablet 40 mg (COMPLETED) 40 mg, Oral, ONCE, 1 dose, On Sun11/29/23 at 2215 215 (Given - Provid er: Janessa Breen RN) Scheduled Medication Order 02/16/2024 02/17/2024 02/18/2024 acetaminophen (TYLENOL) tablet 650 mg (COMPLETED) 650 mg, Oral, ONCE, 1 dose, On Sun02/18/24 at 1300, Maximum dose of acetaminophen is 4000 mg from all sources in 24 hours., Pre-op (day of surgery) 1309 (Given - Provid er: Joana Andre RN) dimenhyDRINATE (DRAMAMINE) tablet 50 mg (COMPLETED) 50 mg, Oral, ONCE, 1 dose, On Sun02/18/24 at 1300, Pre-op (day of surgery) 1309 (Given - Provid er: Joana Andre RN) enoxaparin (LOVENOX) injection 40 mg (COMPLETED) 40 mg, SubCUTAneous, ONCE, 1 dose, On Sun02/18/24 at 1300, Indication of Use: Prophylaxis-DVT/PE, Administer by deep subCUTAneous injection with pt lying down. Alternate injection sites on abdominal wall. Do not rub site after injection. Check with provider prior to any invasive procedure., Pre-op (day of surgery) 1520 (Given - Provid er: Gege Lim RN) levoFLOXacin (LEVAQUIN) 500 MG/100ML infusion 500 mg (COMPLETED)(Linked Group 1) 500 mg, IntraVENous, LINE HELPER TO O.R., 1 dose, On Sun02/18/24 at 1300, Antimicrobial Indications: Surgical Prophylaxis, Administer within 1 hour prior to incision., Pre-op (day of surgery) 1531 (New Bag - Prov ider: Vineet Schreiber RN)1631 (Due: Stopped - Provider: Vineet Schreiber RN) metroNIDAZOLE (FLAGYL) 500 mg in 0.9% NaCl 100 mL IVPB premix (COMPLETED)(Linked Group 1) 500 mg, IntraVENous, at 100 mL/hr, Administer over 60 Minutes, LINE HELPER TO O.R., On Sun02/18/24 at 1300, For 1 dose, Administer within 1 hour prior to incision., Pre-op (day of surgery) 1433 (New Bag - Prov ider: Joana Andre RN)1521 (Stopped - Provider: Gege Lim RN) oxyCODONE (ROXICODONE) immediate release tablet 10 mg (COMPLETED) 10 mg, Oral, ONCE, 1 dose, On Sun02/18/24 at 1845 1831 (Given - Provid er: Gege Lim RN) sodium chloride flush 0.9 % injection 5-40 mL 5-40 mL, IntraVENous, EVERY 12 HOURS SCHEDULED (2 times per day), First dose on Sun02/18/24 at 2100, Until Discontinued, For Line Patency: Peripheral IV = 5 mL; Midline or Central Line = 10 mL/lumen. If following IV push medication, administer flush at same rate as the IV push. Flush volume is determined by type of infusion therapy being given. For non-viscous solutions use: Peripheral IV = 5 mL Midline or Central Line = 10 mL/lumen For viscous solutions (i.e. blood components, parenteral nutrition, contrast media, or after obtaining blood sample) use: Peripheral IV = 10 mL Midline or Central Line = 20 mL/lumen, Pre-op (day of surgery) 2100 (Due) sodium chloride flush 0.9 % injection 5-40 mL 5-40 mL, IntraVENous, EVERY 12 HOURS SCHEDULED (2 times per day), First dose on Sun02/18/24 at 2100, Until Discontinued, For Line Patency: Peripheral IV = 5 mL; Midline or Central Line = 10 mL/lumen. If following IV push medication, administer flush at same rate as the IV push. Flush volume is determined by type of infusion therapy being given. For non-viscous solutions use: Peripheral IV = 5 mL Midline or Central Line = 10 mL/lumen For viscous solutions (i.e. blood components, parenteral nutrition, contrast media, or after obtaining blood sample) use: Peripheral IV = 10 mL Midline or Central Line = 20 mL/lumen, PACU only 2100 (Due) Continuous Medication Order 02/16/2024 02/17/2024 02/18/2024 lactated ringers IV soln infusion IntraVENous, at 125 mL/hr, CONTINUOUS, Starting on Sun02/18/24 at 1300, Pre-op (day of surgery) 1308 (New Bag - Prov ider: Joana Andre RN)1533 (NoRateChange - Provider: ANGELLA Cool CRNA)1711 (Anesthesia Volume Adjustment - Provider: ANGELLA Cool CRNA)1903 (Stopped - Provider: Gege Lim RN) PRN Medication Order 02/16/2024 02/17/2024 02/18/2024 0.9 % sodium chloride infusion IntraVENous, at 5-250 mL/hr, PRN, if patient receiving piggyback infusions and maintenance fluids are not ordered OR KVO fluids to protect IV site / prevent frequent line interruptions/ long duration, Starting on Sun02/18/24 at 1239, For piggyback infusion, administer at same rate as piggyback for a total of 25 mL. Enter 25 mL into dose field and piggyback rate into rate field of order. If piggyback is infusing at a rate less than 100 mL/hr, enter 25 mL into dose field and 100 mL/hr into rate field of order. For KVO fluids, enter rate of 20 mL/hr or less into rate field of order., Pre-op (day of surgery) 0.9 % sodium chloride infusion IntraVENous, at 5-250 mL/hr, PRN, if patient receiving piggyback infusions and maintenance fluids are not ordered OR KVO fluids to protect IV site / prevent frequent line interruptions/ long duration, Starting on Sun02/18/24 at 1719, For piggyback infusion, administer at same rate as piggyback for a total of 25 mL. Enter 25 mL into dose field and piggyback rate into rate field of order. If piggyback is infusing at a rate less than 100 mL/hr, enter 25 mL into dose field and 100 mL/hr into rate field of order. For KVO fluids, enter rate of 20 mL/hr or less into rate field of order., PACU only fentaNYL (SUBLIMAZE) injection 25 mcg 25 mcg, IntraVENous, EVERY 5 MIN PRN, 2 doses, Starting on Sun02/18/24 at 1719, Until Discontinued, Pain Moderate (4-6), For Phase I. If Phase II oral narcotics have been administered in the last 60 minutes, do not administer IV narcotics unless specifically approved by provider., PACU only fentaNYL (SUBLIMAZE) injection 50 mcg 50 mcg, IntraVENous, EVERY 5 MIN PRN, 2 doses, Starting on Sun02/18/24 at 1719, Until Discontinued, Pain Severe (7-10), For Phase I. If Phase II oral narcotics have been administered in the last 60 minutes, do not administer IV narcotics unless specifically approved by provider., PACU only metoclopramide (REGLAN) injection 10 mg 10 mg, IntraVENous, ONCE PRN, 1 dose, Starting on Sun02/18/24 at 1719, Until Sun02/19/24 at 1719, Nausea, Secondary antiemetic therapy., PACU only naloxone 0.4 mg in 10 mL sodium chloride syringe IntraVENous, PRN, Opioid Reversal, Starting on Sun02/18/24 at 1719, PRN if respiratory rate is less than 6/min and patient is difficult to arouse then notify physician STAT. Mix 9 mL of sodium chloride 0.9% with 0.4 mg (1 mL) of naloxone (NARCAN) in 10 mL syringe. (Note: dilution is 0.04 mg/mL) Give 0.08 mg (2 mL of special dilution), slow IV push, repeat up to 0.4 mg (10 mL) or until patient is responsive to physical stimulation and respiratory rate is equal to or greater than 6 breaths/min. Continue to observe, if no response within 3 minutes of administration of 0.4 mg (10 mL) total, repeat dose (0.4 mg as administered previously). Concentration 0.04 mg/mL, PACU only ondansetron (ZOFRAN) injection 4 mg 4 mg, IntraVENous, ONCE PRN, 1 dose, Starting on Sun02/18/24 at 1719, Until Sun02/19/24 at 1719, Nausea, Initial antiemetic therapy., PACU only oxyCODONE (ROXICODONE) immediate release tablet 5 mg 5 mg, Oral, ONCE PRN, 1 dose, Starting on Sun02/18/24 at 1719, Until Sun02/19/24 at 1719, Pain Moderate (4-6), Pain Severe (7-10), PHASE II, PACU only sodium chloride flush 0.9 % injection 5-40 mL 5-40 mL, IntraVENous, PRN, Starting on Sun02/18/24 at 1239, Until Discontinued, Line Care, After every IV line use, For Line Patency: Peripheral IV = 5 mL; Midline or Central Line = 10 mL/lumen. If following IV push medication, administer flush at same rate as the IV push. Flush volume is determined by type of infusion therapy being given. For non-viscous solutions use: Peripheral IV = 5 mL Midline or Central Line = 10 mL/lumen For viscous solutions (i.e. blood components, parenteral nutrition, contrast media, or after obtaining blood sample) use: Peripheral IV = 10 mL Midline or Central Line = 20 mL/lumen, Pre-op (day of surgery) sodium chloride flush 0.9 % injection 5-40 mL 5-40 mL, IntraVENous, PRN, Starting on Sun02/18/24 at 1719, Until Discontinued, Line Care, After every IV line use, For Line Patency: Peripheral IV = 5 mL; Midline or Central Line = 10 mL/lumen. If following IV push medication, administer flush at same rate as the IV push. Flush volume is determined by type of infusion therapy being given. For non-viscous solutions use: Peripheral IV = 5 mL Midline or Central Line = 10 mL/lumen For viscous solutions (i.e. blood components, parenteral nutrition, contrast media, or after obtaining blood sample) use: Peripheral IV = 10 mL Midline or Central Line = 20 mL/lumen, PACU only Linked Groups Order Group 1: metroNIDAZOLE (FLAGYL) 500 mg in 0.9% NaCl 100 mL IVPB premix (COMPLETED)Jump to med 500 mg, IntraVENous, at 100 mL/hr, Administer over 60 Minutes, LINE HELPER TO O.R., On Sun02/18/24 at 1300, For 1 dose
Administer within 1 hour prior to incision.
Pre-op (day of surgery) And levoFLOXacin (LEVAQUIN) 500 MG/100ML infusion 500 mg (COMPLETED)Jump to med 500 mg, IntraVENous, LINE HELPER TO O.R., 1 dose, On Sun02/18/24 at 1300
Antimicrobial Indications: Surgical Prophylaxis
Administer within 1 hour prior to incision.
Pre-op (day of surgery) FOR RECORDS PERTAINING TO PATIENTS WHO ARE OR HAVE BEEN ENROLLED IN A CHEMICAL DEPENDENCY/SUBSTANCEABUSE PROGRAM, SOME INFORMATION MAY BE OMITTED. This clinical summary was aggregated from multiple sources. Caution should be exercised in using it in the provision of clinical care. This summary normalizes information from multiple sources, and as a consequence, information in this document may materially change the coding, format and clinical context of patient data. In addition, data may be omitted in some cases. CLINICAL DECISIONS SHOULD BE BASED ON THE PRIMARY CLINICAL RECORDS. [employer] [facility] provides no warranty or guarantee of the accuracy or completeness of information in this document.
[2024-10-03 11:04] LABS: Internal Control Within Normal Limits; Occult Blood Positive
== END 2024-10-03 10:29 | disposition home or self-care (01) ==
LOC: LAB 10:28
PROVIDERS: PCP Family Medicine; Visit Provider Family Medicine
DX: D64.9 Anemia, unspecified (principal)
CPT/HCPCS: G0328

== ENCOUNTER 2024-10-30 12:42 | Outpatient (OUT) | payer OTHER, SELFPAY | END 2024-10-30 12:43 | disposition home or self-care (01) | LOC: PST 12:43 | PROVIDERS: PCP Family Medicine; Visit Provider Surgery | DX: Z01.818 Encounter for other preprocedural examination (principal); R19.5 Other fecal abnormalities; D64.9 Anemia, unspecified ==

== ENCOUNTER 2024-11-05 06:42 | Day surgery (SDC) | payer OTHER, SELFPAY ==
--- NOTE | 2024-11-05 | OP_ITS ---
OPERATION DATE: 11/05/2024 PREOPERATIVE DIAGNOSIS: Iron deficiency anemia and positive fecal occult blood test. POSTOPERATIVE DIAGNOSIS: 3 cm sliding type hiatal hernia and normal colonoscopy to cecum. PROCEDURE: EGD and colonoscopy to cecum. SURGEON: Vick Dunbar M.D. ANESTHESIA: Monitored anesthesia care. ESTIMATED BLOOD LOSS: Zero. INDICATIONS AND CONSENT: Patient is a 43-year-old female presents for evaluation of iron deficiency anemia, as well as positive fecal occult blood test. Indications, risks, benefits, alternatives of proceeding with EGD and colonoscopy were explained extensively to the patient, including the risks of bleeding, aspiration, esophageal/gastric/duodenal or colonic perforation or anesthetic complications. All of her questions were answered. Informed consent was obtained. PROCEDURE: Patient brought to the operating room, placed in the left lateral decubitus position. Monitored anesthesia care was provided. Bite block was placed in the patient?s mouth. Scope was inserted into the oropharynx. Under direct visualization, it was advanced into the esophagus, past the cricopharyngeus, down to the stomach. The stomach was insufflated with air. The pylorus was traversed down to the descending portion of the duodenum. There was no evidence of duodenitis or ulceration. There was no scarring within the pyloric channel. Scope was pulled back into the stomach and retroflexed. There was noted to be a 3 cm, sliding type hiatal hernia. The remaining gastric mucosal was unremarkable. The GE junction was noted at 34 cm. There was no distal esophagitis or Espino?s changes. Remainder of the esophagus was unremarkable. The scope was then withdrawn. Patient was positioned for colonoscopy. Rectal exam was performed, which showed no masses or blood. The scope was then inserted into the anal canal. Under direct visualization, it was advanced. It was advanced to the cecum where cecal markings were clearly identified. There was noted to be a good prep. Upon withdrawal of the scope, mucosal surfaces were carefully examined. There were no mass lesions or polyps. No inflammatory changes or ulcerations. No significant diverticulosis. The scope was retroflexed in the anal canal. There was no significant hemorrhoidal disease. The scope was then withdrawn. The patient tolerated procedure well, was sent to recovery room in good condition. F/u screening colonoscopy should be in 10 years. CC: Gordon Dent
--- OUTSIDE RECORDS SUMMARY | 2024-11-05 06:45 | XMS_ITS | CCD ---
Author Organization [facility] Care Team Providers Care Business Systems Developer Name Role Phone UNKNOWN, PROVIDER Unavailable [...] Care Provider Desi Manjarrez Primary Care Provider Desi Manjarrez Primary Care Provider ROB NG Attending Unavailable DESI MANJARREZ Primary Care Unavailable DESI MANJARREZ Primary Care Unavailable ITALIA VERNON Attending Unavailable DESI MANJARREZ Primary Care Unavailable JOSELINE CADET Attending Unavailable Desi Manjarrez MD Primary Care Provider DR DESI MANJARREZ Primary Care Unavailable DR GAEL PA Admitting Unavailable DR GAEL PA Attending Unavailable DR GAEL PA Consulting Unavailable [...] Unavailable Desi Manjarrez MD Primary Care Provider [phone] Antolin CASTREJON, Carlos Callahan Attending Unavailab Zachariah CASTREJON, [place] Callahan Attending Unavailab Desi Navarrete MD Primary Care Unavaille Dangelo MD, [place] Attending Unavailab Desi Navarrete MD Primary Care Provider [phone] ARTIE BURDEN Attending Unavailable HOY, DESI M Primary Care Unavailable WHBETZAIDA SMITH I Attending Unavailable UMERARRMARCK PinedaA I Referring Unavailable WHARREdwin, BETZAIDA I Admitting Unavailable WHARRBETZAIDA Pineda I [...] DESI M Primary Care Unavailable MARLEN DEVI Admitting Unavail able MARLEN DEVI Attending Unavail able HOY, DESI M Primary Care Unavailable NGUYEN HERNANDEZ Attending Unavailabl e NGUYEN HERNANDEZ Referring Unavailabl e HOY, DESI M Primary Care Unavailable NGUYEN HERNANDEZ Referring Unavailabl e HOY, DESI M Primary Care Unavailable Vick QUINTEROS Attending Unavailable Hoy, Desi Referring Unavailable Allergies Allergy Classification Reported Allergen(s) Allergy Type Date of Onset Reaction(s) Facility Cephalosporins (antibiotic) (1 source) cefTRIAXone Drug Allergy 10-22-19 20 Rash [facility] Sulfonamides (antibiotic) (1 source) Sulfonamides (Antibiotic) Drug Allergy 05-13-20 20 [facility] (20 sources) cefTRIAXone; Translations: [Unknown] Drug Allergy 10-22-19 [facility] Repository (6 sources) Sulfonamides (Antibiotic) Propensity to adverse reactions to drug 05-13-20 [place] (1 source) cefTRIAXone Drug Allergy 12-05-19 [facility] Repository (1 source) Sulfamethoxazole / Trimethoprim Drug Allergy 06-18-20 [facility] Repository (11 sources) Sulfonamides (Antibiotic) Propensity to adverse reactions to drug 05-13-20 [facility] (3 sources) Sulfonamides (Antibiotic); Translations: [SULFA (SULFONAMIDE ANTIBIOTICS)] Propensity to adverse reactions to drug (disorder) 04-23-20 [facility] Repository (1 source) Sulfonamides (Antibiotic); Translations: [sulfa drugs] Propensity to adverse reactions (disorder) [facility] Repository Medications Current Medications Medication Drug Class(es) [...] mouth daily 90 tablet 3 09/28/2022 Active Mdjtycgin-Qjfofsuoc-D orethind (Myfembree) 40-1-0.5 MG tablet (2 sources) Start: 07-10-2023 Relugolix-Estr adiol-N orethind (Myfembree) 40-1-0.5 MG tablet Take 40 mg by mouth daily. 07/10/2023 Active Xcwhzsmpn-Wmkdxhtpz-R orethind 40-1-0.5 MG TABS (6 sources) Start: 07-10-2023 take 1 tablet by val th once daily Euyeefmaq-Jsjogtngm-P orethind 40-1-0.5 MG TABS Take 1 tablet [...] 08-02-2019 acetaminophen (TYLENOL) tabl et 975 mg [id number] 200 actuat albuterol 0.09 mg/actuat metered dose [...] mg docusate sodium 50 mg / sennosides, fdc 8.6 mg oral tablet (1 source) Start: [...] 5 MIN PRN, 2 doses, Starting on 02/18/24 at 1719, Until Discontinued, Pain Severe (7-10) [...] Every 4 hours PRN, bladder spasms, Starting 10/22/19 at 1715 methIMAzole 10 mg oral tablet [...] disease (7 sources) Fibromyalgia; Translations: [Fibromyalgia] Onset: 09-06-2017 10-24-2022 Episodic Other nervous system disorders (2 sources) [...] to the patient regarding the results. [employer] recommends annual mammograms for women 40 years and older. Performing Facility: [place] [address] [facility] Radiology Study observation (narrative) Nikolas Morales [facility] AIDA DIGITAL DIAGNOSTIC UNILATERAL LEFTon 09-19-2024 [facility] AIDA DIGITAL DIAGNOSTIC UNILATERAL LEFT EXAMINATION: DIAGNOSTIC [...] to the patient regarding the results. [employer] recommends annual mammograms for women 40 years and older. Performing Facility: [place] [address] Interpreted by: Armando Oliveros DO Signed by: Armando Oliveros DO 09/19/24 Final result Normal [facility] No Panel Informationon 09-19 EXAMINATION: DIAGNOSTIC [...] cm from the nipple. Left axilla negative. [facility] RIS CONSOLIDATED No Panel InformationOrdered By: Armando Oliveros on 09-19-2024 Nikolas [facility] Work Phone: US BREAST LIMITED LEFTon [...] to the patient regarding the results. [employer] recommends annual mammograms for women 40 years and older. Interpreted by: Armando Oliveros DO Signed by: Armando Oliveros DO 09/19/24 Final result Normal [facility] US Breast - left limitedon 0 09-19-2024 Benign findings. No mammographic or ultrasonographic evidence of malignancy. BIRADS: BIRADS - CATEGORY 2 Benign Findings. Normal interval follow-up is recommended in 12 months. OVERALL ASSESSMENT - BENIGN A letter of notification will be sent to the patient regarding the results. [employer] recommends annual mammograms for women 40 years and older. PN RIS CONSOLIDATED Radiology Study observation (narrative) Nikolas [facility] DBT Breast - bilateral scree ruthgon 08-08-2024 Focal asymmetry is i n the [...] INCOMPLETE: NEED ADDITIONAL IMAGING EVALUATION. Performing Facility: [place] [address] [facility] CONSOLIDATED EXAMINATION: SCREENING DIGITAL BILATERAL MAMMOGRAM WITH [...] middle depth with additional mammographic workup advised. [facility] CONSOL[facility] DBT Breast - bilateral scree ningOrdered By: Leanna Shahriar on 08-08-2024 Nikolas Morales [facility] Work Phone: [facility] AIDA DIGITAL SCREEN SASHA KAPADIATerra 08-08-2024 [facility] AIDA DIGITAL SCREEN BILATERAL EXAMINATION: SCREENING DIGITAL [...] INCOMPLETE: NEED ADDITIONAL IMAGING EVALUATION. Performing Facility: [place] [address] Interpreted by: Leanna Bess MD Signed by: Leanna Bess MD 08/08/24 Final result Normal [facility] DBT Breast - bilateral scree ningon 08-07-2024 Radiology Study observation (narrative) Nikolas Elvira [facility] HPV DNA High Riskon 07-02-20 24 HPV Interp Normal [facility] Comment on above: Result Comment: This [...] purposes. Performed By: #### H PVH #### [employer] [facility] [place] [address] Shift Stacker: Prasanna Michaels MD HPV Type 16 Not detected Normal [facility] Comment on above: Performed By: #### H PVH #### [employer] [address] [place] [address] Shift Stacker: Prasanna Michaels MD HPV Type 18 Not detected [facility] Comment on above: Performed By: #### H PVH #### [facility] [address] [place] [address] Shift Stacker: Prasanna Michaels MD Other High Risk HPV Not detected Normal [facility] [place] [facility] Comment on above: Performed By: #### H PVH #### [place] [address] [place], [place] [id number] Shift Stacker: Prasanna Michaels MD HPV DNA High Riskon 06-27-20 24 HPV Sample .THIN PREP Normal [facility] Comment on above: Performed By: #### H PVH #### [place] [address] [place], [place] [id number] Shift Stacker: Prasanna Michaels MD Source CERVICAL MATERIAL Normal [facility] Comment on above: Performed By: #### H PVH #### [address] [id number] Shift Stacker: Prasanna Michaels MD Cytology Reporton 06-17-2024 Cytology report Cyto stain.thin prep Doc (Cvx/Vag) (NOTE) Path Number: [id number] DIAGNOSIS Imaged ThinPrep Pap - Cervical (1 [...] or for other forensic purposes. Performed at [address] [address] ([phone] Source of Specimen: A: Imaged ThinPrep Pap - Cervical (1 monolayer slide) HPV Reflex?................. .....HPV if ASCUS Clinical History Contraceptive use Z12.4 Encounter for screening for malignant neoplasm of cervix LMP: 06/02/2024 Processing Lab: [address] [address] Interpretation performed at [address] [address] This Pap Test has been evaluated with [...] smear result. GYNECOLOGIC CYTOLOGY REPORT Patient Name: KALLIE WEEKS [facility] Rec: [id number] [facility] ANATOMIC PATHOLOGY [address] [place] [phone] Normal [facility] HVF 24-2 FAST - OUon 024 HVF 24-2 FAST - OU Hare visual fiel d (24-2 JODY fast): full OU; MD +0.93 OD, +0.39 OS Normal [facility] Perimetry studyon 04-02-2024 Hare visual fiel d (24-2 JODY fast): full OU; MD +0.93 OD, +0.39 OS RADIOLOGY [facility] Radiology Study observation (narrative) [facility] HCG Qualitative, Serumon HCG ( test) Ql Negative NEGATIVE [facility] Comment on above: Specimens with hCG l evels near the threshold of the test (25 mIU/mL) may give a negative or indeterminate result. In such cases, another test should be performed with a new specimen in 48-72 hours. If early is suspected clinically in this setting, correlation with quantitative serum b-hCG level is suggested. [facility] has confirmed the use of plasma for this test. This has not been cleared or approved by the U.S. Food and Drug Administration. The FDA has determined that such clearance is not necessary. [facility] HCG Screen, Bloodon 02-18-20 HCG Screen, Blood Negative Normal [facility] Comment on above: Result Comment: Spec imens with hCG levels near the threshold of the test (25 mIU/mL) may give a negative or indeterminate result. In such cases, another test should be performed with a new specimen in 48-72 hours. If early is suspected clinically in this setting, correlation with quantitative serum b-hCG level is suggested. [facility] has confirmed the use of plasma for this test. This has not been cleared or approved by the U.S. Food and Drug Administration. The FDA has determined that such clearance is not necessary. Performed By: #### H CG #### [facility] [address] [place] [address] Shift Stacker: Chandler Mccall MD Surgical Pathology Reporton 02-18-2024 Surgical Pathology Report (NOTE) Path Number: [id number] -- Diagnosis -- A. UTERINE FIBROID, MYOMECTOMY: Leiomyoma. Arianna Perea M.D. Electronically Signed Out kmg202/20/2024 Clinical Information Pre-Op Diagnosis: UTERINE LEIOMYOMA, UNSPECIFIED LOCATION Operative Findings: UTERINE FIBROIDS Operation Performed: UTERINE MYOMECTOMY ROBOTIC-LAPAROSCOPIC kb Source of Specimen A: UTERUINE FIBROID Gross Description KALLIE DESI, UTERINE FIBROID Received in formalin are fragments of patel-white, whorled myomatous nodules, 21 grams and 8.0 x 6.0 x 1.5 cm in aggregate. There is no hemorrhage or necrosis. Cloth Examiner sections 2cs. tm Aster Delgado/kb2:02/19/2024 Microscopic Description Microscopic examination performed. Processing Lab: [address] [address] Interpretation Performed at [address] [address] SURGICAL PATHOLOGY CONSULTATION Patient Name: KALLIE WEEKS [facility] Rec: [id number] [facility] ANATOMIC PATHOLOGY [address] [place], [place] [phone] Normal [facility] CALCIUMon 01-22-2024 Calcium [Mass/Vol] 8.9 mg/dL Normal 8.5-10.5 [facility] Comment on above: Performed By: #### 1 7861-6 #### [facility] ([id number]) [address] [place] [address], [address] [place] [address] Parathyrin.intact [Mass/Vol] on 01-21-2024 PTH INTACT 44 pg/mL Normal 12-88 [facility] Comment on above: Performed By: #### T HYR, 2731-8 #### [facility] ([id number]) [address] [place] [address], [address] [place] [address] Surgical Pathologyon 024 Surgical Pathology Normal [facility] Comment on above: Result Comment: [facility] [address] [place] [address] Surgical Pathology Consultation Patient Name:LYSSA KEYESSandra Sanchez:1980 (Age: 43)Gender:FTaken:4Reported:4Physician(s):Betzaida Sierra MD ([phone])Copy To: Rec. #:[id number]: #[id number] Final Pathologic Diagnosis 1. Delphian lymph node, [...] Out cjb/4Cwinnie Barreto MD Interpretation performed at [facility], [address] [place] [address], License number: [id number]. Clinical History Graves disease. Gross Description 1. Received in formalin labeled WALI, Delphian lymph node is an ovoid sheet of adipose tissue, 1.4 x 0.8 x 0.3 cm. Within the adipose tissue is a 0.3 cm lymph node candidate. The specimen is entirely submitted in a single cassette. (1, ns, [id number], m2) JG 2. Received in formalin labeled [...] Entirety of detached fibrofatty tissue (13, ns, [id number], A???M, m2) [employer]/01/22/2024WAK Specimen(s) Received 1: Delphian lymph node 2: Entire thyroid gland Fee Codes(s): 1; 70877, 57323 2; 31659, 71981 THYROID PROFILEon 01-21-2024 Free T4 [Mass/Vol] 1.30 ng/dL Normal 0.61-1.60 [facility] Comment on above: Performed By: #### T HYR, 2731-8 #### [facility] ([id number]) [address], [address] [place] [address] TSH 0.47 uIU/mL Low 0.49-4.67 [facility] Comment on above: Performed By: #### T HYR, 2731-8 #### [facility] ([id number]) [address], [address] [place] [address] HCG.beta subunit IA 3rd IS Q non 01-09-2024 SERUM B HCG,3RD I.S. <5 Normal [facility] Comment on above: Result Comment: NEW REFERENCE [...] neoplasms. Performed By: #### 2 0415-6, #### [facility] ([id number]) [address], [address] [place] [address] HGB AND HCTon 01-09-2024 Hematocrit (Bld) [Volume fraction] 37.8 % Normal 35-47 [facility] Comment on above: Performed By: #### 2 0415-6, #### [facility] ([id number]) [address], [address] [place] [address] Hemoglobin (Bld) [Mass/Vol] 12.9 g/dL Normal 11.7-15.5 [facility] Comment on above: Performed By: #### 2 0415-6, #### [facility] ([id number]) [address], [address] [place] [address] CT ABDOMEN/PELVIS WITHOUT CO NTRASTon 11-29-2023 CT [...] colonic stool burden may reflect constipation. Normal [facility] CT Abdomen and Pelvis WO con traston [...] diffuse colonic stool burden may reflect constipation. [email or web address] Radiology Study [facility] (narrative) [facility] Pelvis WO con trastOrdered By: Yury Goodrich on 11-29-2023 [employer] Work Phone: HCG ( test) Ql (U)o n 11-29-2023 [email or web address] HCG QUALITATIVE, URINEon HCG ( test) Ql (U) Negative [facility] No Panel Informationon 11-28 Interpretation and review of laboratory results Abnormal [facility] URINALYSIS, MACROon 11-29-19 24 Bilirubin Ql (U) Negative NEGATIVE [facility] Clarity (U) CLOUDY Abnormal CLEAR [facility] Color (U) YELLOW YELLOW [facility] Glucose Test strip (U) [Mass/Vol] Negative NEGATIVE mg/dl [facility] Hemoglobin Ql (U) LARGE Abnormal NEGATIVE [facility] Ketones (U) [Mass/Vol] TRACE Abnormal NEGATIVE mg/dl [facility] Leukocyte esterase Test strip Ql (U) Negative NEGATIVE [facility] Nitrite Ql (U) Negative NEGATIVE [facility] pH (U) 6.0 [pH] 5.0 - 7.0 [facility] Protein Ql (U) 30 mg/dl Abnormal NEGATIVE [facility] Specific gravity (U) [Rel density] >1.030 High 1.010 - 1.025 [facility] Urobilinogen (U) [Mass/Vol] 0.2 mg/dL [facility] URINE HCG QUALon 11-29-2023 Beta HCG ( test) Ql (U) Negative Normal [facility] URINE MACROSCOPICon 11-29-19 24 Bilirubin Ql (U) Negative Normal NEGATIVE [facility] Clarity (U) CLOUDY Abnormal CLEAR [facility] Color (U) YELLOW Normal YELLOW [facility] Glucose Ql (U) Negative Normal NEGATIVE [facility] pH (U) 6.0 [pH] Normal 5.0-7.0 [facility] Protein (U) [Mass/Vol] 30 mg/dL Abnormal NEGATIVE [facility] URINE HEMOGLOBIN LARGE Abnormal NEGATIVE [facility] URINE KETONE TRACE Abnormal NEGATIVE [facility] URINE LEUKOTEST Negative Normal NEGATIVE [facility] URINE NITRATES Negative Normal NEGATIVE [facility] URINE SPEC GRAVITY >1.030 High 1.010-1.025 [facility] Urobilinogen Qn (U) 0.2 {Levi'U}/dL Normal 0.2-1.0 [facility] URINE MICROSCOPICon 11-29-19 24 BACTERIA 2+ Abnormal NEGATIVE [facility] CASTS NONE Normal NONE [facility] CRYSTAL NONE Normal NONE [facility] Epithelial cells LM Ql (Urine sed) TOO NUMEROUS TO COUNT Normal [facility] Mucus Ql (Urine sed) 3+ Abnormal NEGATIVE [facility] URINE COMMENT POSSIBLY CONTAMINATE D SPECIMEN, CULTURE MUST BE ORDERED SEPARATELY IF DEEMED NECESSARY. Normal [facility] URINE RBC'S 10 TO 20 Normal NEGATIVE [facility] URINE WBC'S 1 TO 5 Normal NEGATIVE [facility] Bacteria LM.HPF (Urine sed) [#/Area] 2+ Abnormal NEGATIVE [facility] Casts LM.LPF (Urine sed) [#/Area] NONE NONE /LPF [facility] Crystals LM Nom (Urine sed) NONE NONE [facility] Epithelial cells LM Ql (Urine sed) TOO NUMEROUS TO COUNT /HPF [facility] Mucus Ql (Urine sed) 3+ Abnormal NEGATIVE [facility] RBC LM.HPF (Urine sed) [#/Area] 10 TO 20 NEGATIVE /HPF [facility] Urine sediment comments LM Dustin (Urine sed) POSSIBLY CONTAMINATED SPECIMEN, CULTURE MUST BE ORDERED SEPARATELY IF DEEMED NECESSARY. [facility] WBC LM.HPF (Urine sed) [#/Area] 1 TO 5 NEGATIVE /HPF [facility]-15-2023 [facility] 4.9 mcg/mL Normal 2.6 - 6.0 [facility] Comment on above: Result Comment: ADDITIONAL INFORMATION This test was developed and its performance characteristics determined by [facility] in a manner consistent with CLIA requirements. This test has not been cleared or approved by the U.S. Food and Drug Administration. Test Performed by: [address] [address] Shift Stacker: Dustin Leonard M.D. Ph.D.; CLIA# [id number] Performed By: #### L ysozyme (Muramidase)-[place] #### [address] [address] [facility] 11-14-2023 FEDERICO-[place] 33 unit/L Normal 16 - 85 [facility] Comment on above: Result Comment: Test Performed by: [facility] [address] [place] [address] Shift Stacker: Dustin Leonard M.D. Ph.D.; CLIA# [id number] Performed By: #### A ngiotensin Converting Enzyme-[place] #### [facility] [address] [place] [address] ISHA Mdn-0-Ntxjrq 11-14-2023 ISHA Cytoplasmic Pattern-[place] Not Reported Normal [facility] Comment on above: Performed By: #### A ngiotensin Converting Enzyme-[place] #### [facility] [address] [place] [address] ISHA Lab Comment-[place] Not Reported Normal [facility] Comment on above: Performed By: #### A ngiotensin Converting Enzyme-[place] #### [address] [address] ISHA Pattern (2)-[place] Not Reported Normal [facility] Comment on above: Performed By: #### A ngiotensin Converting Enzyme-[place] #### [facility] [address] [place] [address] ISHA Pattern-[place] Not Reported [facility] Comment on above: Performed By: #### A ngiotensin Converting Enzyme-[place] #### [facility] [address] [place] [address] ISHA Titer (2)-[place] Not Reported Normal [facility] Comment on above: Performed By: #### A ngiotensin Converting Enzyme-[place] #### [facility] [address] [place] [address] ISHA Titer-[place] Not Reported Normal [place] Comment on above: Performed By: #### A ngiotensin Converting Enzyme-[place] #### [facility] [address] [place] [address] HEp-2 ISHA-[place] SEE BELOW Normal <1:80 (Negative) [facility] Comment on above: Result Comment: RESU LT: <1:80 (Negative) ADDITIONAL INFORMATION Method: Immunofluorescence using HEp-2 cellular substrate. Test Performed by: [facility] [place] [address] Shift Stacker: Dustin Leonard M.D. Ph.D.; CLIA# [id number] Performed By: #### A ngiotensin Converting Enzyme-[place] #### [place] [address] [facility] 11-14-2023 cANCA-[place] Negative Normal Negative [facility] Comment on above: Performed By: #### C ytoplasmic Neutrophilic Antibody-[place] #### [place] [address] pANCA-[place] Negative Normal Negative [facility] Comment on above: Result Comment: Nega tive for cANCA and pANCA patterns by immunofluorescence. ADDITIONAL INFORMATION This test was developed and its performance characteristics determined by [facility] in a manner consistent with CLIA requirements. This test has not been cleared or approved by the U.S. Food and Drug Administration. Test Performed by: [facility] [place] [address] Shift Stacker: Dustin Leonard M.D. Ph.D.; CLIA# [id number] Performed By: #### C ytoplasmic Neutrophilic Antibody-[place] #### [address] [address] TB-QFTon 11-13-2023 Mitogen minus Nil 9.98 IU/mL Normal [facility] Comment on above: Performed By: #### C [id number] #### [place] [address] Nil Result 0.02 IU/mL Normal [facility] Comment on above: Performed By: #### C [id number] #### [place] [address] QuantiFERON-TB Gold Plus Negative Normal Negative [facility] Comment on above: Result Comment: No i [...] an Interferon-gamma level Performed By: #### C [id number] #### [address] [address] TB1 Ag minus Nil 0.04 IU/mL Normal [place] Comment on above: Performed By: #### C [id number] #### [address] [address] TB2 Ag minus Nil 0.04 IU/mL Normal [place] Comment on above: Performed By: #### C [id number] #### [address] [address] Trep Abon 11-13-2023 Treponema Total Ab <0.10 Normal [facility] Comment on above: Performed By: #### C [id number] #### [address] [address] Treponema Total Ab Interp Negative Normal Negative [facility] Comment on above: Result Comment: No s erologic evidence of syphilis. No follow- up necessary unless clinically indicated (eg, early syphilis). Performed By: #### C [id number] #### [address] [address] B12on 11-12-2023 Cobalamin (Vitamin B12) [Mass/Vol] 577 pg/mL Normal 180-914 [facility] Comment on above: Performed By: #### B 12 #### [address] [place] [address] CRPon 11-12-2023 CRP 0.93 mg/dL High 0.00-0.75 [facility] Comment on above: Result Comment: CRP measurement is useful for assessment of non-specific INFLAMMATORY RESPONSE to infection or injury AND is a sensitive MARKER of ACUTE INFLAMMATION including CARDIAC RISK ASSESSMENT. CARDIAC patients with elevated CRP are POTENTIALLY at a HIGHER RISK OF FUTURE CARDIAC EVENTS. Performed By: #### C RP #### [facility] [address] [place] [address] ESRon 11-12-2023 Sed Rate 18 mm/hr Normal 0-23 [facility] Comment on above: Performed By: #### A ngiotensin Converting Enzyme-[place] #### [address] [address] MRI Orbits w/ + w/o Contrast on [...] Electronically Signed in Other Vendor System) Normal [facility] Rheumatoid Factor, Serumon 0 11-12-2023 Rheumatoid Factor,Serum <10.0 Normal 0.0-14.0 [facility] Comment on above: Performed By: #### C [id number] #### [facility] [address] [place] [address] Vitamin D 25-Hydroxy Totalon 11-12-2023 Vitamin D 25-Hydroxy Total 11 ng/mL Low 30-100 [facility] Comment on above: Result Comment: Renetta min D 25-Hydroxy Total Reference Range: Deficient: < 20 Insufficient: 20 to < 30 Sufficient: 30 - 100 Upper Safety Limit: > 100 Performed By: #### C [id number] #### [facility] [address] [place] [address] CBC with Auto Differentialon 09-18-2023 Basophils (Bld) [#/Vol] 0.04 10*3/uL [facility] Basophils/100 WBC (Bld) 1 % 0 - 2 % [facility] Eosinophils (Bld) [#/Vol] 0.19 10*3/uL [facility] Eosinophils/100 WBC (Bld) 3 % 1 - 4 % [facility] Erythrocyte distribution width (RBC) [Ratio] 14.9 % High 11.8 - 14.4 % [facility] Hematocrit (Bld) [Volume fraction] 34.6 % Low 36.3 - 47.1 % [facility] Hemoglobin (Bld) [Mass/Vol] 10.7 g/dL Low 11.9 - 15.1 g/dL [facility] Immature granulocytes (Bld) [#/Vol] [facility] Immature granulocytes/100 WBC (Bld) 0 % 0 [facility] Interpretation and review of laboratory results Abnormal [facility] Lymphocytes/100 WBC (Bld) 36 % 24 - 43 % [facility] Lymphocytes/100 WBC (Bld) 2.13 % [facility] MCH (RBC) [Entitic mass] 24.1 pg Low 25.2 - 33.5 pg [facility] MCHC (RBC) [Mass/Vol] 30.9 g/dL 28.4 - 34.8 g/dL [facility] MCV (RBC) [Entitic vol] 77.9 fL Low 82.6 - 102.9 fL [facility] Monocytes/100 WBC (Bld) 9 % 3 - 12 % [facility] Monocytes/100 WBC (Bld) 0.53 % [facility] Neutrophils/100 WBC (Bld) 51 % 36 - 65 % [facility] Nucleated RBC/100 WBC (Bld) [Ratio] 0.0 % 0.0 per 100 WBC [facility] Platelet mean volume (Bld) [Entitic vol] 10.0 fL 8.1 - 13.5 fL [facility] Platelets (Bld) [#/Vol] 313 10*3/uL [facility] RBC (Bld) [#/Vol] 4.44 10*6/uL 3.95 - 5.1 1 m/uL [facility] Segmented neutrophils/100 WBC (Bld) 3.05 % [facility] WBC other (Bld) [#/Vol] 6.0 [facility] Comprehensive Metabolic Pane rajesh 09-18-2023 Albumin [Mass/Vol] 4.0 g/dL 3.5 - 5.2 g/dL [facility] Albumin/Globulin [Mass ratio] 1.1 {ratio} 1.0 - 2.5 [facility] ALP [Catalytic activity/Vol] 99 U/L 35 - 104 U/L [facility] ALT [Catalytic activity/Vol] 17 U/L 5 - 33 U/L [facility] Anion gap [Moles/Vol] 12 mmol/L 9 - 17 mmol/L [facility] AST [Catalytic activity/Vol] 23 U/L NINF - 32 U/L [facility] Bilirubin [Mass/Vol] 0.3 mg/dL 0.3 - 1 .2 mg/dL [facility] Calcium [Mass/Vol] 8.9 mg/dL 8.6 - 10. 4 mg/dL [facility] Chloride [Moles/Vol] 103 mmol/L 98 - 10 7 mmol/L [facility] CO2 [Moles/Vol] 22 mmol/L 20 - 31 mmol/L [facility] Creatinine [Mass/Vol] 0.7 mg/dL 0.5 - 0.9 mg/dL [facility] GFR/1.73 sq M.predicted MDRD (S/P/Bld) [Vol rate/Area] - PINF [facility] Comment on above: These results are not [...] [Mass/Vol] 82 mg/dL 70 - 99 mg/dL [facility] [employer] Potassium [Moles/Vol] 3.8 mmol/L 3.7 - 5.3 mmol/L [facility] Protein [Mass/Vol] 7.5 g/dL 6.4 - 8.3 g/dL [facility] Sodium [Moles/Vol] 137 mmol/L 135 - 144 mmol/L [facility] Urea nitrogen [Mass/Vol] 11 mg/dL 6 - 20 mg/dL [facility] Urea nitrogen/Creatinine [Mass ratio] 16 mg/mg 9 - 20 [facility] Insulin, totalon 09-18-2023 Insulin 6.4 mU/L [facility] Insulin Reference Range: [facility] Comment on above: Fastin.6-24.9 30 min: 20-112 60 min: 29-88 90 min: 26-84 120 min: 22-79 Ironon 09-18-2023 Iron [Mass/Vol] 39 ug/dL 37 - 145 ug/dL [facility] [employer] Lipid Panelon 09-18-2023 Cholesterol [Mass/Vol] 184 mg/dL NINF - 200 mg/dL [facility] Comment on above: Cholesterol Guidelines: <200 Desirable 200-240 Borderline >240 Undesirable Cholesterol in HDL [Mass/Vol] 46 mg/dL 40 - PINF mg/dL [facility] [employer] Comment on above: HDL Guidelines: <40 Undesirable 40-59 Borderline >59 Desirable Cholesterol in LDL [Mass/Vol] 115 mg/dL 0 - 130 mg/dL [facility] Comment on above: LDL Guidelines: <100 Desirable 100-129 Near to/above Desirable 130-159 Borderline >159 Undesirable Direct (measured) LDL and calculated LDL are not interchangeable tests. Cholesterol.total/Cho lesterol in HDL [Mass ratio] 4.0 {ratio} NINF - 5 [facility] Triglyceride [Mass/Vol] 117 mg/dL NINF - 150 mg/dL [facility] Comment on above: Triglyceride Guidelines: <150 Desirable 150-199 Borderline 200-499 High >499 Very high Based on AHA Guidelines for fasting triglyceride, May 2012. No Panel Informationon 09-18 [facility] T3, Freeon 09-18-2023 Free T3 [Mass/Vol] 2.94 pg/mL 2.02 - 4. 43 pg/mL [facility] T4on 09-18-2023 T4 [Mass/Vol] 9.3 ug/dL 4.5 - 11.7 ug/dL [facility] TSHon 09-18-2023 TSH Qn 0.37 m[IU]/L [facility] [address].00 MIU/ML Normal [facility] Comment on above: Result Comment: [facility] [place]PRETIVE [place]ES: NON FEMALE 0-6 MIU/ML MALE [...] hCG testing of urine. Testing performed at [place] [address] Performed By: #### B HCG2, CMPF, ACBC #### [place] [address] CBCon 11-20-2022 ABSOLUTE BAS 0.0 10*3/uL Normal 0.0-0.2 [facility] ABSOLUTE EOS 0.0 10*3/uL Normal 0.0-0.7 [facility] ABSOLUTE NEUTROPHIL COUNT 10.2 10*3/uL High 1.4-6.5 [facility] Basophils/100 WBC (Bld) 0.1 % Normal 0.0-2.0 [facility] DTYPE AUTO DIFF Normal [facility] Eosinophils/100 WBC (Bld) 0.1 % Normal 0.0-11.0 [facility] Lymphocytes (Bld) [#/Vol] 0.8 10*3/uL Low 1.2-3.4 [facility] Lymphocytes/100 WBC (Bld) 7.5 % Low 20.0-55.0 [facility] Monocytes (Bld) [#/Vol] 0.2 10*3/uL Normal 0.0-0.7 [facility] Monocytes/100 WBC (Bld) 1.4 % Normal 0.0-10.0 [facility] Neutrophils/100 WBC (Bld) 90.9 % High 37.0-75.0 [facility] Erythrocyte distribution width (RBC) [Ratio] 15.9 % High 11.5-14.5 [facility] Hematocrit (Bld) [Volume fraction] 34.4 % Low 36.0-48.0 [facility] Hemoglobin (Bld) [Mass/Vol] 11.3 g/dL Low 12.0-16.0 [facility] MCH (RBC) [Entitic mass] 26.4 pg Normal 26.0-35.0 [facility] MCHC (RBC) [Mass/Vol] 32.9 g/dL Normal 27.0-37.0 [facility] MCV (RBC) [Entitic vol] 80.3 fL Normal 80.0-100.0 [facility] Platelet mean volume (Bld) [Entitic vol] 8.8 fL Normal 7.4-11.0 [facility] Platelets (Bld) [#/Vol] 234 10*3/uL Normal 130-400 [facility] RBC (Bld) [#/Vol] 4.29 10*6/uL Normal 4.0-5.4 [facility] WBC (Bld) [#/Vol] 11.2 10*3/uL High 3.6-11.0 [facility] ABSOLUTE BAS 0.1 10*3/uL Normal 0.0-0.2 [facility] Comment on above: Result Comment: Test ing performed at [place] [address] Performed By: #### B HCG2, CMPF, ACBC #### [place] [address] ABSOLUTE EOS 0.2 10*3/uL Normal 0.0-0.7 [facility] Comment on above: Performed By: #### B HCG2, CMPF, ACBC #### [place] [address] ABSOLUTE NEUTROPHIL COUNT 6.4 10*3/uL Normal 1.4-6.5 [facility] Comment on above: Performed By: #### B HCG2, CMPF, ACBC #### [place] [address] Basophils/100 WBC (Bld) 0.7 % Normal 0.0-2.0 [facility] Comment on above: Performed By: #### B HCG2, CMPF, ACBC #### [place] [address] DTYPE AUTO DIFF Normal [facility] Comment on above: Performed By: #### B HCG2, CMPF, ACBC #### [place] [address] Eosinophils/100 WBC (Bld) 2.0 % Normal 0.0-11.0 [facility] Comment on above: Performed By: #### B HCG2, CMPF, ACBC #### [place] [address] Lymphocytes (Bld) [#/Vol] 2.6 10*3/uL Normal 1.2-3.4 [facility] Comment on above: Performed By: #### B HCG2, CMPF, ACBC #### Testing performed at [address] [address] Lymphocytes/100 WBC (Bld) 25.7 % Normal 20.0-55.0 [facility] Comment on above: Performed By: #### B HCG2, CMPF, ACBC #### [place] [address] Monocytes (Bld) [#/Vol] 0.8 10*3/uL High 0.0-0.7 [facility] Comment on above: Performed By: #### B HCG2, CMPF, ACBC #### [place] [address] Monocytes/100 WBC (Bld) 8.0 % Normal 0.0-10.0 [facility] Comment on above: Performed By: #### B HCG2, CMPF, ACBC #### Testing performed at [place] [id number] Neutrophils/100 WBC (Bld) 63.6 % Normal 37.0-75.0 [facility] Comment on above: Performed By: #### B HCG2, CMPF, ACBC #### [place] [address] Erythrocyte distribution width (RBC) [Ratio] 16.1 % High 11.5-14.5 [facility] Comment on above: Performed By: #### B HCG2, CMPF, ACBC #### Testing performed at [place] [id number] Hematocrit (Bld) [Volume fraction] 30.4 % Low 36.0-48.0 [facility] Comment on above: Performed By: #### B HCG2, CMPF, ACBC #### [place] [address] Hemoglobin (Bld) [Mass/Vol] 10.3 g/dL Low 12.0-16.0 [facility] Comment on above: Performed By: #### B HCG2, CMPF, ACBC #### [place] [address] MCH (RBC) [Entitic mass] 26.3 pg Normal 26.0-35.0 [facility] Comment on above: Performed By: #### B HCG2, CMPF, ACBC #### [place] [address] MCHC (RBC) [Mass/Vol] 34.0 g/dL Normal 27.0-37.0 [facility] Comment on above: Performed By: #### B HCG2, CMPF, ACBC #### [place] [address] MCV (RBC) [Entitic vol] 77.5 fL Low 80.0-100.0 [facility] Comment on above: Performed By: #### B HCG2, CMPF, ACBC #### [place] [address] Platelet mean volume (Bld) [Entitic vol] 8.1 fL Normal 7.4-11.0 [facility] Comment on above: Performed By: #### B HCG2, CMPF, ACBC #### [place] [address] Platelets (Bld) [#/Vol] 269 10*3/uL Normal 130-400 [facility] Comment on above: Performed By: #### B HCG2, CMPF, ACBC #### [place] [address] RBC (Bld) [#/Vol] 3.92 10*6/uL Low 4.0-5.4 [facility] Comment on above: Performed By: #### B HCG2, CMPF, ACBC #### [place] [address] WBC (Bld) [#/Vol] 10.1 10*3/uL Normal 3.6-11.0 [facility] Comment on above: Performed By: #### B HCG2, CMPF, ACBC #### [place] [address] CBC(NO DIFF)on 11-20-2022 Erythrocyte distribution width (RBC) [Ratio] 16.3 % High 11.5-14.5 [facility] Comment on above: Performed By: #### H EMOG #### [place] [address] Hematocrit (Bld) [Volume fraction] 25.2 % Low 36.0-48.0 [facility] Comment on above: Result Comment: OB P ATIENT Performed By: #### H EMOG #### [place] [address] Hemoglobin (Bld) [Mass/Vol] 8.4 g/dL Low 12.0-16.0 [facility] Comment on above: Result Comment: OB P ATIENT Performed By: #### H EMOG #### [place] [address] MCH (RBC) [Entitic mass] 25.9 pg Low 26.0-35.0 [facility] Comment on above: Performed By: #### H EMOG #### [place] [address] MCHC (RBC) [Mass/Vol] 33.4 g/dL Normal 27.0-37.0 [facility] Comment on above: Performed By: #### H EMOG #### [place] [address] MCV (RBC) [Entitic vol] 77.4 fL Low 80.0-100.0 [facility] Comment on above: Performed By: #### H EMOG #### [place] [address] Platelet mean volume (Bld) [Entitic vol] 8.2 fL Normal 7.4-11.0 [facility] Comment on above: Result Comment: Test ing performed at [place] [address] Performed By: #### H EMOG #### [place] [address] Platelets (Bld) [#/Vol] 236 10*3/uL Normal 130-400 [facility] Comment on above: Performed By: #### H EMOG #### Testing performed at [address] [address] RBC (Bld) [#/Vol] 3.26 10*6/uL Low 4.0-5.4 [facility] Comment on above: Performed By: #### H EMOG #### Testing performed at [address] [address] WBC (Bld) [#/Vol] 9.6 10*3/uL Normal 3.6-11.0 [facility] Comment on above: Performed By: #### H EMOG #### Testing performed at [address] [address] CBC, EDIF, PLATELETon 2022 ABSOLUTE BASOPHIL COUNT 0.1 10*3/uL 0.0 - 0.2 10*3/uL [facility] Comment on above: Testing performed at [place], [place] [address] Basophils/100 WBC (Bld) 0.7 % 0.0 - 2.0 % [facility] Differential cell count method Nom (Bld) AUTO DIFF % [facility] Eosinophils (Bld) [#/Vol] 0.2 10*3/uL 0.0 - 0.7 10*3/uL [facility] Eosinophils/100 WBC (Bld) 2.0 % 0.0 - 11.0 % [facility] Erythrocyte distribution width (RBC) [Ratio] 16.1 % High 11.5 - 14.5 % [facility] Hematocrit (Bld) [Volume fraction] 30.4 % Low 36.0 - 48.0 % [facility] Hemoglobin (Bld) [Mass/Vol] 10.3 g/dL Low [facility] Interpretation and review of laboratory results Abnormal [facility] Lymphocytes (Bld) [#/Vol] 2.6 10*3/uL 1.2 - 3.4 10*3/uL [facility] Lymphocytes/100 WBC (Bld) 25.7 % 20.0 - 55.0 % [facility] MCH (RBC) [Entitic mass] 26.3 pg 26.0 - 35.0 PG [facility] MCHC (RBC) [Mass/Vol] 34.0 g/dL [facility] MCV (RBC) [Entitic vol] 77.5 fL Low [facility] Monocytes (Bld) [#/Vol] 0.8 10*3/uL High 0.0 - 0.7 10*3/uL [facility] Monocytes/100 WBC (Bld) 8.0 % 0.0 - 10.0 % [facility] Neutrophils (Bld) [#/Vol] 6.4 10*3/uL 1.4 - 6.5 10*3/uL [facility] Neutrophils/100 WBC (Bld) 63.6 % 37.0 - 75.0 % [facility] Platelet mean volume (Bld) [Entitic vol] 8.1 fL [facility] Platelets (Bld) [#/Vol] 269 10*3/uL 130 - 400 10*3/uL [facility] RBC (Bld) [#/Vol] 3.92 10*6/uL Low 4.0 - 5.4 10*6/uL [facility] WBC (Bld) [#/Vol] 10.1 10*3/uL 3.6 - 11.0 10*3/uL [facility] CMP FASTINGon 11-20-2022 A:G RATIO 1.1 RATIO Low 1.3-2.2 [facility] Comment on above: Performed By: #### B HCG2, CMPF, ACBC #### [place] [address] ALBUMIN 3.7 G/dl Normal 3.5-5.0 [facility] Comment on above: Performed By: #### B HCG2, CMPF, ACBC #### [place] [address] ALP [Catalytic activity/Vol] 81 U/L Normal 38-126 [facility] Comment on above: Performed By: #### B HCG2, CMPF, ACBC #### [place] [address] ALT [Catalytic activity/Vol] 20 U/L Normal <35 [facility] Comment on above: Performed By: #### B HCG2, CMPF, ACBC #### [place] [address] AST [Catalytic activity/Vol] 22 U/L Normal 14-36 [facility] Comment on above: Performed By: #### B HCG2, CMPF, ACBC #### Testing performed at [place] [id number] Bilirubin [Mass/Vol] 0.2 mg/dL Normal 0.2-1.3 [facility] Comment on above: Performed By: #### B HCG2, CMPF, ACBC #### [place] [address] Calcium [Mass/Vol] 9.1 mg/dL Normal 8.4-10.2 [facility] Comment on above: Performed By: #### B HCG2, CMPF, ACBC #### [place] [address] Chloride [Moles/Vol] 105 mmol/L Normal 98-107 [facility] Comment on above: Result Comment: Darrius bryson note: Triglyceride levels of 600mg/dL or higher may positively bias chloride results by approximately 2.1 mmol Performed By: #### B HCG2, CMPF, ACBC #### [place] [address] CO2 [Moles/Vol] 21 mmol/L Low 22-30 [facility] Comment on above: Performed By: #### B HCG2, CMPF, ACBC #### Testing performed at [place] [id number] Creatinine [Mass/Vol] 0.50 mg/dL Low 0.7-1.2 [facility] Comment on above: Performed By: #### B HCG2, CMPF, ACBC #### [place] [address] EST. GFR, 175 ml/min/1.73sq.m Normal [facility] Comment on above: Performed By: #### B HCG2, CMPF, ACBC #### [place] [address] EST. GFR,Non 145 ml/min/1.73sq.m Normal [facility] Comment on above: Performed By: #### B HCG2, CMPF, ACBC #### [place] [address] GFR Information Average GFR for 40-4 9 years old = 99. Normal [facility] Comment on above: Result Comment: Score Caller denny Kidney disease, GFR = <60. Kidney failure, GFR = <15. The GFR estimate is not adjusted for extreme body surface area or acute process, nor has it been validated for women or ethnic groups other than and . Testing performed at [place] [address] Performed By: #### B HCG2, CMPF, ACBC #### [place] [address] Glucose [Mass/Vol] 129 mg/dL High 70-100 [facility] Comment on above: Result Comment: NORMAL <100 mg/dL PREDIABETES 101-126 mg/dL DIABETES 126 mg/dL or higher Performed By: #### B HCG2, CMPF, ACBC #### [place] [address] Potassium [Moles/Vol] 3.4 mmol/L Low 3.5-5.1 [facility] Comment on above: Performed By: #### B HCG2, CMPF, ACBC #### [place] [address] Protein [Mass/Vol] 7.1 g/dL Normal 6.3-8.2 [facility] Comment on above: Performed By: #### B HCG2, CMPF, ACBC #### [place] [address] Sodium [Moles/Vol] 136 mmol/L Low 137-145 [facility] Comment on above: Performed By: #### B HCG2, CMPF, ACBC #### Testing performed at [facility] [address] [place] [address] Urea nitrogen [Mass/Vol] 7 mg/dL Normal 7-20 [facility] Comment on above: Performed By: #### B HCG2, CMPF, ACBC #### Testing performed at [facility] [address] [place] [address] COMPREHENSIVE METABOLIC PANE Rajesh 11-20-2022 Albumin [Mass/Vol] 3.7 G/dl 3.5 - 5.0 G/dl [facility] Albumin/Globulin [Mass ratio] 1.1 {ratio} Low [facility] ALP [Catalytic activity/Vol] 81 U/L [facility] ALT [Catalytic activity/Vol] 20 U/L [facility] AST [Catalytic activity/Vol] 22 U/L [facility] Bilirubin [Mass/Vol] 0.2 mg/dL [facility] Calcium [Mass/Vol] 9.1 mg/dL [facility] Chloride [Moles/Vol] 105 mmol/L [facility] Comment on above: Please note: Triglyc eride levels of 600mg/dL or higher may positively bias chloride results by approximately 2.1 mmol CO2 [Moles/Vol] 21 mmol/L Low [facility] Creatinine [Mass/Vol] 0.50 mg/dL Low [facility] GFR COMMENT Average GFR for 40-4 9 years old = 99. [facility] Comment on above: Chronic Kidney disea se, GFR = <60. Kidney failure, GFR = <15. The GFR estimate is not adjusted for extreme body surface area or acute process, nor has it been validated for women or ethnic groups other than and . Testing performed at [place], [place] [address] GFR/1.73 sq M.predicted among blacks MDRD (S/P/Bld) [Vol rate/Area] 175 mL/min/{1.73_m2} ml/min/1.73 sq.m [facility] GFR/1.73 sq M.predicted among non-blacks MDRD (S/P/Bld) [Vol rate/Area] 145 mL/min/{1.73_m2} ml/min/1.73 sq.m [facility] Glucose post fast [Mass/Vol] 129 mg/dL High [facility] Comment on above: NORMAL <100 mg/dL PREDIABETES 101-126 mg/dL DIABETES 126 mg/dL or higher Interpretation and review of laboratory results Abnormal [facility] Potassium [Moles/Vol] 3.4 mmol/L Low [facility] Protein [Mass/Vol] 7.1 g/dL [facility] Sodium [Moles/Vol] 136 mmol/L Low [facility] Urea nitrogen [Mass/Vol] 7 mg/dL [facility] Narrative [Interpretat ion] Study observation.general transvaginal [...] Suggestion of mild retroversion of the uterus. [facility] Study [facility] (narrative) [facility] Narrative [Interpretat ion] Study observation.general transvaginal 1st trimester USOrdered By: Mirza Schneider on 11-20-2022 [employer] Work Phone: HCG ( test) [place] [address].00 m[IU]/mL MIU/ML [facility] Comment on above: [facility] [place]: NON FEMALE 0-6 MIU/ML MALE [...] hCG testing of urine. Testing performed at [address] REPEAT ABO/RHon 11-20-2022 REPEAT ABO/RH ABO/RH(D) O POSITIVE Testing performed at [place] [address] Normal [facility] Comment on above: Performed By: #### R [facility] #### [place] [address] TYPE AND SCREEN CROSSMATCH C ONVERTIBLEon 11-20-2022 TYPE AND SCREEN CROSSMATCH CONVERTIBLE UNITS ORDERED 2 WORKUP EXPIRES 11/23/2022,2359 ABO/RH(D) O POSITIVE ANTIBODY SCREEN NEGATIVE ARM BAND NUMBER [id number] UNIT NUMBER [id number] BLOOD COMPONENT TYPE LRBC PART 1 UNIT DIVISION 00 STATUS OF UNIT TRANSFUSED TRANSFUSION STATUS OK TO TRANSFUSE CROSSMATCH RESULT COMPATIBLE UNIT NUMBER [id number] BLOOD COMPONENT TYPE LEUKORED RBC UNIT DIVISION 00 STATUS OF UNIT TRANSFUSED TRANSFUSION STATUS OK TO TRANSFUSE CROSSMATCH RESULT COMPATIBLE UNIT NUMBER [id number] BLOOD COMPONENT TYPE LEUKORED RBC UNIT DIVISION 00 STATUS OF UNIT REL FROM ALLOC TRANSFUSION STATUS OK TO TRANSFUSE CROSSMATCH RESULT Electronically Compatible Testing performed at [place] [address] UNIT NUMBER [id number] BLOOD COMPONENT TYPE LEUKORED RBC UNIT DIVISION 00 STATUS OF UNIT REL FROM ALLOC TRANSFUSION STATUS OK TO TRANSFUSE CROSSMATCH RESULT Electronically Compatible [facility] Comment on above: Performed By: #### T [facility] #### [place] [address] US OB TRANSVAGINAL/CERVICAL LENGTHon 11-20-2022 US OB [...] of mild retroversion of the uterus. Normal [facility] CBC with Auto Differentialon 11-03-2022 Absolute Eos # 0.24 [place] [facility] Absolute Immature Granulocyte [facility] Absolute Lymph # 1.61 [facility] [facility] Absolute [place] # 0.66 [facility] Basophils Absolute [facility] Basophils/100 WBC (Bld) 0 % 0 - 2 % [facility] Eosinophils/100 WBC (Bld) 3 % 1 - 4 % [facility] Hematocrit (Bld) [Volume fraction] 35.5 % Low 36.3 - 47.1 % [facility] Hemoglobin (Bld) [Mass/Vol] 11.3 g/dL Low 11.9 - 15.1 g/dL [facility] Immature granulocytes/100 WBC (Bld) 0 % 0 [facility] Interpretation and review of laboratory results Abnormal [facility] Lymphocytes/100 WBC (Bld) 21 % Low 24 - 43 % [facility] MCH (RBC) [Entitic mass] 25.7 pg 25.2 - 33.5 pg [facility] MCHC (RBC) [Mass/Vol] 31.8 g/dL 28.4 - 34.8 g/dL [facility] MCV (RBC) [Entitic vol] 80.7 fL Low 82.6 - 102.9 fL [facility] Monocytes/100 WBC (Bld) 9 % 3 - 12 % [facility] NRBC Automated 0.0 0.0 per 100 WBC [facility] Platelet distribution width (Bld) [Ratio] 15.9 % High 11.8 - 14.4 % [facility] Platelet mean volume (Bld) [Entitic vol] 10.4 fL 8.1 - 13.5 fL [facility] Platelets (Bld) [#/Vol] 299 10*3/uL [facility] RBC (Bld) [#/Vol] 4.40 10*6/uL 3.95 - 5.1 1 m/uL [facility] Segmented neutrophils/100 WBC (Bld) 67 % High 36 - 65 % [facility] Segs Absolute 5.01 [facility] WBC (Bld) [#/Vol] 7.6 10*3/uL [facility] Microscopic Urinalysison Bacteria, UA 1+ Abnormal None [facility] Epithelial Cells UA 2 TO 5 [facility] Interpretation and review of laboratory results Abnormal [facility] RBC clumps Auto (Urine sed) [#/Area] 50 TO 100 [facility] WBC, UA 2 TO 5 [facility] TYPE AND SCREENon 11-03-2022 ABO/Rh Positive [facility] Arm Band Number [id number] [facility] Expiration Date 11/06/2022,2359 [facility] Urinalysis with Reflex to Cu ltureon 11-03-2022 Bilirubin Urine Negative NEGATIVE [facility] Color, UA Yellow Yellow [facility] Glucose Auto test strip (U) [Mass/Vol] Negative NEGATIVE [facility] Interpretation and review of laboratory results Abnormal [facility] Ketones (U) [Mass/Vol] Negative NEGATIVE [facility] Leukocyte esterase Auto test strip Ql (U) SMALL Abnormal NEGATIVE [facility] Nitrite Auto test strip Ql (U) Negative NEGATIVE [facility] Protein (U) [Mass/Vol] 7.5 mg/dL 5.0 - 9.0 [facility] Protein (U) [Mass/Vol] 1+ Abnormal NEGATIVE [facility] Specific [place], UA 1.020 1.010 - 1.020 [facility] Turbidity UA SLIGHTLY CLOUDY Abnormal Clear [facility] Urine Hgb 3+ Abnormal NEGATIVE [facility] Urobilinogen, Urine Normal Normal [facility] hCG, quantitative, on 11-03-2022 hCG Quant [id number] High NINF [facility] Comment on above: Non-preg premeno <=5 Postmeno <=8 Male <=3 If HCG results do not concur with clinical observations, additional testing to confirm results is recommended. Interpretation and review of laboratory results Abnormal [facility] CBC with Auto Differentialon 09-28-2022 Absolute Eos # 0.11 [place] [facility] Absolute Immature Granulocyte [facility] Absolute Lymph # 0.98 Low [facility] Absolute [place] # 0.60 [facility] Basophils Absolute [facility] [facility] Basophils/100 WBC (Bld) 0 % 0 - 2 % [facility] Eosinophils/100 WBC (Bld) 2 % 1 - 4 % [facility] Hematocrit (Bld) [Volume fraction] 35.8 % Low 36.3 - 47.1 % [facility] Hemoglobin (Bld) [Mass/Vol] 11.4 g/dL Low 11.9 - 15.1 g/dL [facility] Immature granulocytes/100 WBC (Bld) 0 % 0 [facility] Interpretation and review of laboratory results Abnormal [facility] Lymphocytes/100 WBC (Bld) 20 % Low 24 - 43 % [facility] MCH (RBC) [Entitic mass] 25.2 pg 25.2 - 33.5 pg [facility] MCHC (RBC) [Mass/Vol] 31.8 g/dL 28.4 - 34.8 g/dL [facility] MCV (RBC) [Entitic vol] 79.0 fL Low 82.6 - 102.9 fL [facility] Monocytes/100 WBC (Bld) 12 % 3 - 12 % [facility] NRBC Automated 0.0 0.0 per 100 WBC [facility] Platelet distribution width (Bld) [Ratio] 15.9 % High 11.8 - 14.4 % [facility] Platelet mean volume (Bld) [Entitic vol] 10.1 fL 8.1 - 13.5 fL [facility] Platelets (Bld) [#/Vol] 312 10*3/uL [facility] RBC (Bld) [#/Vol] 4.53 10*6/uL 3.95 - 5.1 1 m/uL [facility] Segmented neutrophils/100 WBC (Bld) 66 % High 36 - 65 % [facility] Segs Absolute 3.13 [facility] WBC (Bld) [#/Vol] 4.9 10*3/uL [facility] Comprehensive Metabolic Pane rajesh 09-28-2022 Albumin [Mass/Vol] 3.7 g/dL 3.5 - 5.2 g/dL [facility] Albumin/Globulin [Mass ratio] 0.9 {ratio} Low 1.0 - 2.5 [facility] ALP [Catalytic activity/Vol] 135 U/L High 35 - 104 U/L [facility] ALT [Catalytic activity/Vol] 32 U/L 5 - 33 U/L [facility] Anion gap [Moles/Vol] 13 mmol/L 9 - 17 mmol/L [facility] AST [Catalytic activity/Vol] 28 U/L NINF - 32 U/L [facility] Bilirubin [Mass/Vol] 0.4 mg/dL 0.3 - 1 .2 mg/dL [facility] Calcium [Mass/Vol] 9.2 mg/dL 8.6 - 10. 4 mg/dL [facility] Chloride [Moles/Vol] 101 mmol/L 98 - 10 7 mmol/L [facility] CO2 [Moles/Vol] 24 mmol/L 20 - 31 mmol/L [facility] Creatinine [Mass/Vol] 0.63 mg/dL 0.50 - 0.90 mg/dL [facility] GFR/1.73 sq M.predicted MDRD (S/P/Bld) [Vol rate/Area] - PINF [facility] Comment on above: These results are not [...] [Mass/Vol] 92 mg/dL 70 - 99 mg/dL [facility] Interpretation and review of laboratory results Abnormal [facility] Potassium [Moles/Vol] 3.5 mmol/L Low 3.7 - 5.3 mmol/L [facility] Protein [Mass/Vol] 7.6 g/dL 6.4 - 8.3 g/dL [facility] Sodium [Moles/Vol] 138 mmol/L 135 - 144 mmol/L [facility] Urea nitrogen [Mass/Vol] 10 mg/dL 6 - 20 mg/dL [facility] Urea nitrogen/Creatinine (Bld) [Mass ratio] 16 9 - 20 [facility] HCG, Quantitative, on 09-28-2022 hCG Quant 406 High [facility] Comment on above: Non-preg premeno <=5 Postmeno <=8 Male <=3 If HCG results do not concur with clinical observations, additional testing to confirm results is recommended. Interpretation and review of laboratory results Abnormal [facility] Insulin, totalon 09-28-2022 Insulin 11.6 mU/L [facility] Insulin Reference Range: [facility] Comment on above: Fastin.6-24.9 30 min: 20-112 60 min: 29-88 90 min: 26-84 120 min: 22-79 [facility] Ironon 09-28-2022 Interpretation and review of laboratory results Abnormal [facility] Iron [Mass/Vol] 27 ug/dL Low 37 - 145 ug/dL [facility] Lipid Panelon 09-28-2022 Cholesterol [Mass/Vol] 145 mg/dL NINF - 200 mg/dL [facility] Comment on above: Cholesterol Guidelines: <200 Desirable 200-240 Borderline >240 Undesirable Cholesterol in HDL [Mass/Vol] 25 mg/dL Low 40 - PINF mg/dL [facility] Comment on above: HDL Guidelines: <40 Undesirable 40-59 Borderline >59 Desirable Cholesterol in LDL [Mass/Vol] 99 mg/dL 0 - 130 mg/dL [facility] Comment on above: LDL Guidelines: <100 Desirable 100-129 Near to/above Desirable 130-159 Borderline >159 Undesirable Direct (measured) LDL and calculated LDL are not interchangeable tests. Cholesterol.total/Cho lesterol in HDL [Mass ratio] 5.8 {ratio} High NINF - 5 [facility] Interpretation and review of laboratory results Abnormal [facility] Triglyceride [Mass/Vol] 104 mg/dL NINF - 150 mg/dL [facility] Comment on above: Triglyceride Guidelines: <150 Desirable 150-199 Borderline 200-499 High >499 Very high Based on AHA Guidelines for fasting triglyceride, May 2012. [facility] TSHon 09-28-2022 Interpretation and review of laboratory results Abnormal [facility] TSH Qn Low [facility] Vitamin D 25 Hydroxyon 09-28 25-hydroxyvitamin D3 [Mass/Vol] 15.5 ng/mL Low 29.9 - PINF ng/mL [facility] Comment on above: Reference Range: Vitamin D status Range Deficiency <20 ng/mL Mild Deficiency 20-30 ng/mL Sufficiency 30-100 ng/mL Toxicity >100 ng/mL Interpretation and review of laboratory results Abnormal [facility] Jawbone Covid-19 PCR (CVDTBH)on 07-07 SARS-CoV-2 (COVID-19) RNA KOREY+probe Ql (Unsp spec) Not detected Normal NOT DETECTED [facility] Comment on above: Result Comment: This test is not yet approved or cleared by the [place] FDA. When there are no FDA-approved or cleared tests available, and other criteria are met, FDA can make tests available under an emergency access mechanism called an Emergency Use Authorization (EUA). The EUA for this test is supported by the Warehouse Technician of Health and Human Service's (HHS's) declaration [...] SARS-CoV-2. Performed By: #### C VDTBH #### [facility] [address] [place] [address] Dr. Saeid Snider GROUP A STREP CULTUREon 07-07 S. pyogenes Ag Ql (Unsp spec) Culture Observations: NEGATIVE FOR GROUP A STREPTOCOCCUS. Normal [facility] Comment on above: Performed By: #### G RASTCX, SSCRN #### [facility] [address] [place] [address] Dr. Saeid Snider INFLUENZA A AND B AGon 08-02 INFLUANEGH SEE BELOW Normal [facility] Comment on above: Result Comment: Nega tive for Flu A protein angiten. Infection due to Flu A cannot be ruled out. Flu A angiten in the sample may be below the detection limit of the test. Performed By: #### I NFLUAB #### [facility] [address] [place] [address] Dr. Saeid Snider INFLUBNEG SEE BELOW Normal [facility] Comment on above: Result Comment: Nega tive for Flu B protein antigen. Infection due to Flu B cannot be ruled out. Flu B antigen in the sample may be below the detection limit of the test. Performed By: #### I NFLUAB #### [facility] [address] [place] [address] Dr. Saeid Snider INFLUENZA A AG Negative Normal NEGATIVE SEE COMMENT [facility] Comment on above: Performed By: #### I NFLUAB #### [facility] [address] [place] [address] Dr. Saeid Snider INFLUENZA B AG Negative Normal NEGATIVE SEE COMMENT [facility] Comment on above: Performed By: #### I NFLUAB #### [facility] [address] [place], [place] [address] Dr. Saeid Snider STREPT SCREENon 08-02-2022 STREP SCREEN A Negative Normal NEGATIVE [facility] Comment on above: Performed By: #### G RASTCX, SSCRN #### [facility] [address] [place], [place] [address] Dr. Saeid Snider XR CHEST 2 Von [...] KITTY JEWELL Date: 2022-08-02 14:55 Normal [facility] Chlamydia/GC,DNA Ampon 08-27 Chlamydia Probe Negative Normal NEG [facility] Comment on above: Result Comment: CHLA MYDIA [...] target. Performed By: #### S WCGP #### [facility] [employer] [facility] [place] [address] Shift Stacker: Prasanna Michaels MD Gonorrhea Probe Negative Normal NEG [facility] Comment on above: Result Comment: NEIS SERIA [...] nucleic acid target. Performed By: #### S [facility] #### [facility] [employer] [address] [place] [address] Shift Stacker: Prasanna Michaels MD CBC With Auto Differentialon 08-26-2020 Basophils (Bld) [#/Vol] 0.04 10*3/uL [place] Basophils/100 WBC (Bld) 1 % 0 - 2 % [place] Differential Type NOT REPORTED [place] Eosinophils (Bld) [#/Vol] 0.27 10*3/uL [place] Eosinophils/100 WBC (Bld) 4 % 1 - 4 % [place] Erythrocyte distribution width (RBC) [Ratio] 12.6 % 11.8 - 14.4 % [place] Hematocrit (Bld) [Volume fraction] 35.2 % Low 36.3 - 47.1 % [place] Hemoglobin (Bld) [Mass/Vol] 11.3 g/dL Low 11.9 - 15.1 g/dL [place] Immature granulocytes (Bld) [#/Vol] 0 % 0 [place] Immature granulocytes (Bld) [#/Vol] 10*3/uL [place] Interpretation and review of laboratory results Abnormal [place] Lymphocytes (Bld) [#/Vol] 2.34 10*3/uL [place] Lymphocytes/100 WBC (Bld) 37 % 24 - 43 % [place] MCH (RBC) [Entitic mass] 29.4 pg 25.2 - 33.5 pg [place] MCHC (RBC) [Mass/Vol] 32.1 g/dL 28.4 - 34.8 g/dL [place] MCV (RBC) [Entitic vol] 91.4 fL 82.6 - 102.9 fL [place] Monocytes (Bld) [#/Vol] 0.56 10*3/uL [place] Monocytes/100 WBC (Bld) 9 % 3 - 12 % [place] Platelet mean volume (Bld) [Entitic vol] 9.8 fL 8.1 - 13.5 fL [place] Platelets (Bld) [#/Vol] 282 10*3/uL [place] Platelets (Bld) [#/Vol] NOT REPORTED [place] RBC (Bld) [#/Vol] 3.85 10*6/uL Low 3.95 - 5.1 1 m/uL [place] RBC morphology finding Nom (Bld) NOT REPORTED [place] Segmented neutrophils/100 WBC (Bld) 49 % 36 - 65 % [place] Segs Absolute 3.12 [place] WBC (Bld) [#/Vol] 6.4 10*3/uL [place] WBC (Bld) [#/Vol] 0.0 10*3/uL 0.0 per 10 0 WBC [place] WBC Morphology NOT REPORTED [place] Basic Metab w/rfx MGon 08-25 (cont.) Normal [facility] Comment on above: Result Comment: Aver age GFR for 30-39 years old: 107 mL/min/1.73sq m Chronic Kidney Disease: <60 mL/min/1.73sq m Kidney failure: <15 mL/min/1.73sq m eGFR calculated using average adult body mass. Additional eGFR calculator available at: http://www.Syndero.SemiNex/multiple_crcl_2011.htm Performed By: #### C DP, HCG, BMPX #### [facility] [address] [place] [address] Shift Stacker: Chandler Mccall MD Anion gap [Moles/Vol] 7 mmol/L Low 9-17 [facility] Comment on above: Performed By: #### C DP, HCG, BMPX #### [facility] [address] [place] [address] Shift Stacker: Chandler Mccall MD BUN/CRE Ratio 11 Normal - [facility] Comment on above: Performed By: #### C DP, HCG, BMPX #### [facility] [address] [place] [address] Shift Stacker: Chandler Mccall MD Calcium [Mass/Vol] 9.8 mg/dL Normal 8.6-10.4 [facility] Comment on above: Performed By: #### C DP, HCG, BMPX #### [facility] [address] [place] [address] Shift Stacker: Chandler Mccall MD Chloride [Moles/Vol] 103 mmol/L Normal 98-107 [facility] Comment on above: Performed By: #### C DP, HCG, BMPX #### [facility] [address] [place] [address] Shift Stacker: Chandler Mccall MD CO2 [Moles/Vol] 27 mmol/L Normal 20-31 [facility] Comment on above: Performed By: #### C DP, HCG, BMPX #### [facility] [address] [place] [address] Shift Stacker: Chandler Mccall MD Creatinine [Mass/Vol] 0.66 mg/dL Normal 0.50-0.90 [facility] Comment on above: Performed By: #### C DP, HCG, BMPX #### [facility] [address] [place] [address] Shift Stacker: Chandler Mccall MD GFR, Amer >60 Normal >60 [facility] Comment on above: Performed By: #### C DP, HCG, BMPX #### [facility] [address] [place] [address] Shift Stacker: Chandler Mccall MD GFR,non Amer >60 Normal >60 [facility] Comment on above: Performed By: #### C DP, HCG, BMPX #### [facility] [address] [place], [place] [id number] Shift Stacker: Chandler Mccall MD Glucose [Mass/Vol] 95 mg/dL Normal 70-99 [facility] Comment on above: Performed By: #### C DP, HCG, BMPX #### [facility] [address] [place], [place] [id number] Shift Stacker: Chandler Mccall MD Potassium [Moles/Vol] 3.9 mmol/L Normal 3.7-5.3 [facility] Comment on above: Performed By: #### C DP, HCG, BMPX #### [facility] [address] [place], [place] [phone] Shift Stacker: Chandler Mccall MD Sodium [Moles/Vol] 137 mmol/L Normal 135-144 [facility] Comment on above: Performed By: #### C DP, HCG, BMPX #### [facility] [address] [place], [place] [phone] Shift Stacker: Chandler Mccall MD Urea nitrogen [Mass/Vol] 7 mg/dL Normal 6-20 [facility] Comment on above: Performed By: #### C DP, HCG, BMPX #### [facility] [address] [place], [place] [id number] Shift Stacker: Chandler Mccall MD Staging: NOT REPORTED Normal [facility] Comment on above: Performed By: #### C DP, HCG, BMPX #### [facility] [address] [place], [place] [id number] Shift Stacker: Chandler Mccall MD Basic Metabolic Panel w/ Ref tommy to MGon 08-25-2020 Anion gap [Moles/Vol] 7 mmol/L Low 9 - 17 mmol/L [place] Bun/Cre Ratio 11 [place] Calcium [Mass/Vol] 9.8 mg/dL 8.6 - 10. 4 mg/dL [place] Chloride [Moles/Vol] 103 mmol/L 98 - 10 7 mmol/L [place] CO2 [Moles/Vol] 27 mmol/L 20 - 31 mmol/L [place] Creatinine [Mass/Vol] 0.66 mg/dL 0.5 - 0.9 mg/dL [place] GFR >60 >60 mL/min [place] GFR Non- >60 >60 mL/min [place] GFR/1.73 sq M predicted among non-blacks MDRD (S/P/Bld) [Vol rate/Area] NOT REPORTED [place] GFR/1.73 sq M predicted among non-blacks MDRD (S/P/Bld) [Vol rate/Area] [place] Comment on above: Average GFR for 30-3 9 years old: 107 mL/min/1.73sq m Chronic Kidney Disease: <60 mL/min/1.73sq m Kidney failure: <15 mL/min/1.73sq m eGFR calculated using average adult body mass. Additional eGFR calculator available at: http://www.[employer]/multiple_crcl_2012.htm Glucose [Mass/Vol] 95 mg/dL 70 - 99 mg/dL [place] Interpretation and review of laboratory results Abnormal [place] Potassium [Moles/Vol] 3.9 mmol/L 3.7 - 5.3 mmol/L [place] Sodium [Moles/Vol] 137 mmol/L 135 - 144 mmol/L [place] Urea nitrogen [Mass/Vol] 7 mg/dL 6 - 20 mg/dL [place] CBC Auto Differentialon 08-07 Basophils (Bld) [#/Vol] 0.10 10*3/uL [place] Basophils/100 WBC (Bld) 1 % 0 - 2 % [place] Differential Type YES [place] Eosinophils (Bld) [#/Vol] 0.20 10*3/uL [place] Eosinophils/100 WBC (Bld) 4 % 0 - 5 % [place] Erythrocyte distribution width (RBC) [Ratio] 12.7 % 12.1 - 15.2 % [place] Hematocrit (Bld) [Volume fraction] 33.8 % Low 36 - 46 % [place] Hemoglobin (Bld) [Mass/Vol] 11.5 g/dL Low 12 - 16 g/dL [place] Interpretation and review of laboratory results Abnormal [place] Lymphocytes (Bld) [#/Vol] 2.40 10*3/uL [place] Lymphocytes/100 WBC (Bld) 39 % 15 - 40 % [place] MCH (RBC) [Entitic mass] 29.6 pg 26 - 34 pg [place] MCHC (RBC) [Mass/Vol] 34.1 g/dL 31 - 3 7 g/dL [place] MCV (RBC) [Entitic vol] 86.8 fL 80 - 100 fL [place] Monocytes (Bld) [#/Vol] 0.50 10*3/uL [place] Monocytes/100 WBC (Bld) 8 % 4 - 8 % [place] Platelets (Bld) [#/Vol] 291 10*3/uL [place] RBC (Bld) [#/Vol] 3.90 10*6/uL Low 4 - 5.2 m/uL [place] Segmented neutrophils/100 WBC (Bld) 48 % 47 - 75 % [place] Segs Absolute 3.10 [place] WBC (Bld) [#/Vol] NOT REPORTED per 100 WBC [place] WBC (Bld) [#/Vol] 6.3 10*3/uL [place] CBC with Diffon 08-25-2020 Abs. Basophil 0.10 k/uL Normal 0.0-0.2 [facility] Comment on above: Performed By: #### C DP, HCG, BMPX #### [facility] [address] [place] [address] Shift Stacker: Chandler Mccall MD Abs.Neutrophil (Seg) 3.10 k/uL Normal 2.5-7.0 [facility] Comment on above: Performed By: #### C DP, HCG, BMPX #### [facility] [address] [place] [phone] Shift Stacker: Chandler Mccall MD Auto Diff Performed YES Normal [facility] Comment on above: Performed By: #### C DP, HCG, BMPX #### [facility] [address] [place] [phone] Shift Stacker: Chandler Mccall MD Basophils/100 WBC (Bld) 1 % Normal 0-2 [facility] Comment on above: Performed By: #### C DP, HCG, BMPX #### [facility] [address] [place] [phone] Shift Stacker: Chandler Mccall MD Eosinophils (Bld) [#/Vol] 0.20 10*3/uL Normal 0.0-0.4 [facility] Comment on above: Performed By: #### C DP, HCG, BMPX #### [facility] [address] [place] [address] Shift Stacker: Chandler Mccall MD Eosinophils/100 WBC (Bld) 4 % Normal 0-5 [facility] Comment on above: Performed By: #### C DP, HCG, BMPX #### [facility] [address] [place] [phone] Shift Stacker: Chandler Mccall MD Erythrocyte distribution width (RBC) [Ratio] 12.7 % Normal 12.1-15.2 [facility] Comment on above: Performed By: #### C DP, HCG, BMPX #### [facility] [address] [place] [phone] Shift Stacker: Chandler Mccall MD Hematocrit (Bld) [Volume fraction] 33.8 % Low 36-46 [facility] Comment on above: Performed By: #### C DP, HCG, BMPX #### [facility] [address] [place] [address] Shift Stacker: Chandler Mccall MD Hemoglobin (Bld) [Mass/Vol] 11.5 g/dL Low 12.0-16.0 [facility] Comment on above: Performed By: #### C DP, HCG, BMPX #### [facility] [address] [place] [id number] Shift Stacker: Chandler Mccall MD Lymphocytes (Bld) [#/Vol] 2.40 10*3/uL Normal 1.0-4.8 [facility] Comment on above: Performed By: #### C DP, HCG, BMPX #### [facility] [address] [place] [address] Shift Stacker: Chandler Mccall MD Lymphocytes/100 WBC (Bld) 39 % Normal 15-40 [facility] Comment on above: Performed By: #### C DP, HCG, BMPX #### [facility] [address] [place] [id number] Shift Stacker: Chandler Mccall MD MCH (RBC) [Entitic mass] 29.6 pg Normal 26-34 [facility] Comment on above: Performed By: #### C DP, HCG, BMPX #### [facility] [address] [place] [address] Shift Stacker: Chandler Mccall MD MCHC (RBC) [Mass/Vol] 34.1 g/dL Normal 31-37 [facility] Comment on above: Performed By: #### C DP, HCG, BMPX #### [facility] [address] [place] [phone] Shift Stacker: Chandler Mccall MD MCV (RBC) [Entitic vol] 86.8 fL Normal 80-100 [facility] Comment on above: Performed By: #### C DP, HCG, BMPX #### [facility] [address] [place], [place] [id number] Shift Stacker: Chandler Mccall MD Monocytes (Bld) [#/Vol] 0.50 10*3/uL Normal 0.0-1.0 [facility] Comment on above: Performed By: #### C DP, HCG, BMPX #### [facility] [address], [place] [phone] Shift Stacker: Chandler Mccall MD Monocytes/100 WBC (Bld) 8 % Normal 4-8 [facility] Comment on above: Performed By: #### C DP, HCG, BMPX #### [facility] [address] [place] [address] Shift Stacker: Chandler Mccall MD Neutrophil (Seg) 48 % Normal 47-75 [facility] Comment on above: Performed By: #### C DP, HCG, BMPX #### [facility] [address] [place] [phone] Shift Stacker: Chandler Mccall MD Platelets (Bld) [#/Vol] 291 10*3/uL Normal 140-450 [facility] Comment on above: Performed By: #### C DP, HCG, BMPX #### [facility] [address], [place] [phone] Shift Stacker: Chandler Mccall MD RBC (Bld) [#/Vol] 3.90 10*6/uL Low 4.0-5.2 [facility] Comment on above: Performed By: #### C DP, HCG, BMPX #### [facility] [address], [place] [phone] Shift Stacker: Chandler Mccall MD WBC (Bld) [#/Vol] 6.3 10*3/uL Normal 3.5-11.0 [facility] Comment on above: Performed By: #### C DP, HCG, BMPX #### [facility] [address] [place], [place] [phone] Shift Stacker: Chandler Mccall MD Abs.Imm.Granulocyte NOT REPORTED Normal 0.00-0.30 [facility] Comment on above: Performed By: #### C DP, HCG, BMPX #### [facility] [address], [place] [phone] Shift Stacker: Chandler Mccall MD NRBC Automated NOT REPORTED Normal [facility] Comment on above: Performed By: #### C DP, HCG, BMPX #### [facility] [address], [place] [phone] Shift Stacker: Chandler Mccall MD Immature granulocytes (Bld) [#/Vol] NOT REPORTED Normal 0 [facility], [place] Comment on above: Performed By: #### C DP, HCG, BMPX #### [facility] [address], [place] [phone] Shift Stacker: Chandler Mccall MD Platelet mean volume (Bld) [Entitic vol] NOT REPORTED Normal 6.0-12.0 [facility] Comment on above: Performed By: #### C DP, HCG, BMPX #### [facility] [address], [place] [phone] Shift Stacker: Chandler Mccall MD Platelets (Bld) [#/Vol] NOT REPORTED Normal [facility], [place] Comment on above: Performed By: #### C DP, HCG, BMPX #### [facility] [address], [place] [phone] Shift Stacker: Chandler Mccall MD RBC morphology finding Nom (Bld) NOT REPORTED Normal [facility] Comment on above: Performed By: #### C DP, HCG, BMPX #### [facility] [address], [place] [phone] Shift Stacker: Chandler Mccall MD WBC Morphology NOT REPORTED Normal [place], [place] Comment on above: Performed By: #### C DP, HCG, BMPX #### [facility] [address] [place] [address] Shift Stacker: Chandler Mccall MD HCG Qualitative, Serumon hCG Qual Negative NEGATIVE [place], [place] Comment on above: Specimens with hCG l evels near the threshold of the test (25 mIU/mL) may give a negative or indeterminate result. In such cases, another test should be performed with a new specimen in 48-72 hours. If early is suspected clinically in this setting, correlation with quantitative serum b-hCG level is suggested. [facility] has confirmed the use of plasma for this test. This has not been cleared or approved by the U.S. Food and Drug Administration. The FDA has determined that such clearance is not necessary. HCG Screen, Bloodon 08-25-19 21 HCG Qn Negative Normal NEG [facility] Comment on above: Result Comment: Spec imens with hCG levels near the threshold of the test (25 mIU/mL) may give a negative or indeterminate result. In such cases, another test should be performed with a new specimen in 48-72 hours. If early is suspected clinically in this setting, correlation with quantitative serum b-hCG level is suggested. [facility] has confirmed the use of plasma for this test. This has not been cleared or approved by the U.S. Food and Drug Administration. The FDA has determined that such clearance is not necessary. Performed By: #### C DP, HCG, BMPX #### [facility] [address] [place] [address] Shift Stacker: Chandler Mccall MD TSH without Reflexon 021 TSH Qn 1.51 m[IU]/L [place], [place] Thyroid Stim. Horm.on 2020 TSH Qn 1.51 m[IU]/L Normal 0.30-5.00 [facility] Comment on above: Performed By: #### T SH #### [facility] [address] [place] [address] Shift Stacker: Chandler Mccall MD Trichomonas/Wet Prepon 08-25 Trichomonas/Wet Prep Specimen Descriptio n .VAGINA Special Requests NOT REPORTED Direct Exam NO WBC NO EPI NOTRICH NOBACTERIA NO CLUE CELLS NO YEAST Report Status FINAL 08/25/2020 Normal [facility] Comment on above: Performed By: #### W P #### [facility] [address] [place] [address] Shift Stacker: Chandler Mccall MD Wet Prep, Genitalon 08-25-19 Direct Exam NOTRICH [facility] Direct Exam NO YEAST [place] Direct Exam NO EPI [facility] Direct Exam NOBACTERIA [facility] Direct Exam NO CLUE CELLS [place], [place] Special Requests NOT REPORTED [place], [place] Specimen Description .VAGINA [place], [place] WBC (Bld) [#/Vol] NO WBC [facility] [place] HEAD WITHOUT CONTRAST ([facility])on 05-11-2020 CT HEAD WITHOUT CONTRAST (STROKE) EXAMINATION: [...] on SunMay 10, 2020 11:56:58 PM EDT [facility] Comment on above: Order Comment: Injur [...] on SunMay 11, 2020 12:01:24 AM EDT [facility] Comment on above: Order Comment: Injur [...] Intrauterine device in place. Workstation ID: [id number] [facility], [facility] In [place]ino Davidson - 05/11/2020 12:04 AM EDT EXAMINATION: CT [...] Intrauterine device in place. Workstation ID: [id number] [facility] EXAMINATION: CT KIDN EY STONE HISTORY: ORDERING [...] appear unremarkable. The osseous structures appear unremarkable. [facility] CT HEAD WITHOUT CONTRAST ([facility])on 05-10-2020 [...] cells are clear. The calvarium appears intact. [facility] No evidence for acut e intracranial hemorrhage or mass effect. No acute abnormality is seen on this noncontrast head CT. However, please note MRI is more sensitive for detection of acute/hyperacute stroke. Findings discussed with 10 minutes in the ED at 11:53 p.m.. Workstation ID: [id number] [facility] Interface, Felipe In Fu ji Speechq - 05/10/2020 11:59 [...] detection of acute/hyperacute stroke. Findings discussed with Dr. Maureen hernandez in the ED at 11:53 p.m.. Workstation ID: [id number] [facility] POC Basic Metabolic Panelon 05-10-2020 Calcium.ionized (Bld) [Mass/Vol] 4.7 mg/dL 4.5 - 5.3 mg/dL [facility] Chloride [Moles/Vol] 103 mmol/L 98 - 10 8 mmol/L [facility] CO2 [Moles/Vol] 25 mmol/L 21 - 32 mmol/L [facility] Creatinine [Mass/Vol] 0.67 mg/dL 0.40 - 1.10 [facility] GFR/1.73 sq M.predicted MDRD (S/P/Bld) [Vol rate/Area] 111 mL/min/{1.73_m2} >=60 mL/min/1.73 m2 [facility] Glucose [Mass/Vol] 139 mg/dL High 65 - 99 mg/dL [facility] Interpretation and review of laboratory results Abnormal [facility] Potassium [Moles/Vol] 3.1 mmol/L Low 3.5 - 5.1 mmol/L [facility] Sodium [Moles/Vol] 142 mmol/L 135 - 145 mmol/L [facility] Urea nitrogen [Mass/Vol] 10 mg/dL 8 - 25 mg/dL [facility] POC CBC and Differentialon 1 Erythrocyte distribution width (RBC) [Entitic vol] 12.9 % 11.6 - 14.8 % [facility] Hematocrit (Bld) [Volume fraction] 39.8 % 36 - 46 % [facility] Hemoglobin (Bld) [Mass/Vol] 13.7 g/dL 12 - 16 g/dL [facility] Interpretation and review of laboratory results Abnormal [facility] Lymphocytes (Bld) [#/Vol] 2.2 10*3/uL [facility] Lymphocytes/100 WBC (Bld) 15.2 % [facility] MCH (RBC) [Entitic mass] 29.8 pg 26 - 34 pg [facility] MCHC (RBC) [Mass/Vol] 34.4 g/dL 31 - 3 7 g/dL [facility] MCV (RBC) [Entitic vol] 86.7 fL 80 - 100 fL [facility] Mixed 1.5 % [facility] Mixed Abs 0.2 K/mcl [facility] Neutrophil Abs 12.1 High [facility] Neutrophils/100 WBC (Bld) 83.3 % [facility] Platelet mean volume (Bld) [Entitic vol] 11.2 fL 9.4 - 12.4 fL [facility] Platelets (Bld) [#/Vol] 308 10*3/uL [facility] RBC (Bld) [#/Vol] 4.59 10*6/uL [facility] WBC (Bld) [#/Vol] 14.50 10*3/uL [facility] POC , Urineon 05-10 Beta HCG ( test) Ql (U) Dilute urine specimens, as indicated by a low specific gravity (<1.010) may not contain ocean import representative levels of hCG. If is still suspected, a serum test or repeat urine test using a first morning urine specimen should be considered. [facility] HCG ( test) Ql (U) Negative Negative [facility] Interpretation and review of laboratory results Normal [facility] POC Urinalysis Dipstick, Aut oon 05-10-2020 Bilirubin Ql (U) Negative Negative [facility] Glucose Ql (U) Negative Negative mg/dL [facility] Hemoglobin Ql (U) Large Abnormal Negative [facility] Interpretation and review of laboratory results Abnormal [facility] Ketones Ql (U) Negative Negative mg/dL [facility] Leukocyte esterase Test strip Ql (U) Moderate Abnormal Negative [facility] Nitrite Ql (U) Negative Negative [facility] pH (U) 5.0 [pH] [facility] Protein Ql (U) 100 Abnormal Negative mg/dL [facility] Specific gravity (U) [Rel density] >=1.030 High [facility] Urobilinogen Qn (U) 0.2 mg/dL <2.0 [facility] Cult,Urineon 04-27-2020 Cult,Urine Specimen Description .Random Urine Special Requests NOT REPORTED Culture NO GROWTH Report Status FINAL 04/27/2020 Normal [facility] Comment on above: Performed By: #### U #### [employer] [address] [place] [address] Shift Stacker: Prasanna Mcihaels MD [facility] [address] [place] [address] Shift Stacker: Florentino Galvan MD Basic Metab w/rfx MGon 04-25 (cont.) Normal [facility] Comment on above: Result Comment: Aver age GFR for 30-39 years old: 107 mL/min/1.73sq m Chronic Kidney Disease: <60 mL/min/1.73sq m Kidney failure: <15 mL/min/1.73sq m eGFR calculated using average adult body mass. Additional eGFR calculator available at: http://www.[employer]/multiple_crcl_2012.htm Performed By: #### T SH #### [facility] [address], [place] [phone] Shift Stacker: Chandler Mccall MD Anion gap [Moles/Vol] 10 mmol/L Normal 9-17 [facility] Comment on above: Performed By: #### T SH #### [facility] [address] [place] [address] Shift Stacker: Chandler Mccall MD BUN/CRE Ratio 17 Normal - [facility] Comment on above: Performed By: #### T SH #### [facility] [address], [place] [phone] Shift Stacker: Chandler Mccall MD Calcium [Mass/Vol] 9.2 mg/dL Normal 8.6-10.4 [facility] Comment on above: Performed By: #### T SH #### [facility] [address], [place] [phone] Shift Stacker: Chandler Mccall MD Chloride [Moles/Vol] 103 mmol/L Normal 98-107 [facility] Comment on above: Performed By: #### T SH #### [facility] [address] [place] [address] Shift Stacker: Chandler Mccall MD CO2 [Moles/Vol] 25 mmol/L Normal 20-31 [facility] Comment on above: Performed By: #### T SH #### [facility] [address] [place], [place] [phone] Shift Stacker: Chandler Mccall MD Creatinine [Mass/Vol] 0.70 mg/dL Normal 0.50-0.90 [facility] Comment on above: Performed By: #### T SH #### [facility] [address], [place] [phone] Shift Stacker: Chandler Mccall MD GFR, Amer >60 Normal >60 [facility] Comment on above: Performed By: #### T SH #### [facility] [address] [place] [address] Shift Stacker: Chandler Mccall MD GFR,non Amer >60 Normal >60 [facility] Comment on above: Performed By: #### T SH #### [facility] [address], [place] [phone] Shift Stacker: Chandler Mccall MD Glucose [Mass/Vol] 128 mg/dL High 70-99 [facility] Comment on above: Performed By: #### T SH #### [facility] [address], [place] [phone] Shift Stacker: Chandler Mccall MD Potassium [Moles/Vol] 3.9 mmol/L Normal 3.7-5.3 [facility] Comment on above: Performed By: #### T SH #### [facility] [address], [place] [phone] Shift Stacker: Chandler Mccall MD Sodium [Moles/Vol] 138 mmol/L Normal 135-144 [facility] Comment on above: Performed By: #### T SH #### [facility] [address], [place] [phone] Shift Stacker: Chandler Mccall MD Urea nitrogen [Mass/Vol] 12 mg/dL Normal 6-20 [facility] Comment on above: Performed By: #### T SH #### [facility] [address] [place] [address] Shift Stacker: Chandler Mccall MD Staging: NOT REPORTED Normal [facility] Comment on above: Performed By: #### T SH #### [facility] [address] [place] [address] Shift Stacker: Chandler Mccall MD Basic Metabolic Panel w/ Ref tommy to MGon 04-25-2020 Anion gap [Moles/Vol] 10 mmol/L 9 - 17 mmol/L [place], [place] Bun/Cre Ratio 17 [place], [place] Calcium [Mass/Vol] 9.2 mg/dL 8.6 - 10. 4 mg/dL [place] Chloride [Moles/Vol] 103 mmol/L 98 - 10 7 mmol/L [place] CO2 [Moles/Vol] 25 mmol/L 20 - 31 mmol/L [place] Creatinine [Mass/Vol] 0.7 mg/dL 0.5 - 0.9 mg/dL [place] GFR >60 >60 mL/min [place], [place] GFR Non- >60 >60 mL/min [place] GFR/1.73 sq M predicted among non-blacks MDRD (S/P/Bld) [Vol rate/Area] [place] Comment on above: Average GFR for 30-3 9 years old: 107 mL/min/1.73sq m Chronic Kidney Disease: <60 mL/min/1.73sq m Kidney failure: <15 mL/min/1.73sq m eGFR calculated using average adult body mass. Additional eGFR calculator available at: http://www.[employer]/multiple_crcl_2012.htm GFR/1.73 sq M predicted among non-blacks MDRD (S/P/Bld) [Vol rate/Area] NOT REPORTED [place], [place] Glucose [Mass/Vol] 128 mg/dL High 70 - 99 mg/dL [place] Interpretation and review of laboratory results Abnormal [place] Potassium [Moles/Vol] 3.9 mmol/L 3.7 - 5.3 mmol/L [place] Sodium [Moles/Vol] 138 mmol/L 135 - 144 mmol/L [place] Urea nitrogen [Mass/Vol] 12 mg/dL 6 - 20 mg/dL [place] CBC Auto Differentialon 04-07 0-2020 Basophils (Bld) [#/Vol] 0.00 10*3/uL [place] Basophils/100 WBC (Bld) 1 % 0 - 2 % [place] Differential Type YES [place], [place] Eosinophils (Bld) [#/Vol] 0.40 10*3/uL [place] Eosinophils/100 WBC (Bld) 5 % 0 - 5 % [place] Erythrocyte distribution width (RBC) [Ratio] 12.7 % 12.1 - 15.2 % [place] Hematocrit (Bld) [Volume fraction] 37.1 % 36 - 46 % [place] Hemoglobin (Bld) [Mass/Vol] 12.7 g/dL 12 - 16 g/dL [place] Lymphocytes (Bld) [#/Vol] 2.50 10*3/uL [place] Lymphocytes/100 WBC (Bld) 31 % 15 - 40 % [place] MCH (RBC) [Entitic mass] 29.9 pg 26 - 34 pg [place] MCHC (RBC) [Mass/Vol] 34.2 g/dL 31 - 3 7 g/dL [place] MCV (RBC) [Entitic vol] 87.4 fL 80 - 100 fL [place] Monocytes (Bld) [#/Vol] 0.60 10*3/uL [place] Monocytes/100 WBC (Bld) 7 % 4 - 8 % [place] Platelet mean volume (Bld) [Entitic vol] NOT REPORTED 6 - 12 fL [place] Platelets (Bld) [#/Vol] NOT REPORTED [place] Platelets (Bld) [#/Vol] 292 10*3/uL [place] RBC (Bld) [#/Vol] 4.24 10*6/uL 4 - 5.2 m/uL [place] RBC morphology finding Nom (Bld) NOT REPORTED [place] Segmented neutrophils/100 WBC (Bld) 56 % 47 - 75 % [place] Segs Absolute 4.60 [place], [place] WBC (Bld) [#/Vol] 8.1 10*3/uL [place] WBC (Bld) [#/Vol] NOT REPORTED per 100 WBC [place] WBC Morphology NOT REPORTED [place], [place] CBC with Diffon 04-25-2020 Abs. Basophil 0.00 k/uL Normal 0.0-0.2 [facility] Comment on above: Performed By: #### T SH #### [facility] [address] [place] [address] Shift Stacker: Chandler Mccall MD Abs.Neutrophil (Seg) 4.60 k/uL Normal 2.5-7.0 [facility] Comment on above: Performed By: #### T SH #### [facility] [address] [place] [address] Shift Stacker: Chandler Mccall MD Auto Diff Performed YES Normal [facility] Comment on above: Performed By: #### T SH #### [facility] [address] [place] [address] Shift Stacker: Chandler Mccall MD Basophils/100 WBC (Bld) 1 % Normal 0-2 [facility] Comment on above: Performed By: #### T SH #### [facility] [address] [place] [address] Shift Stacker: Chandler Mccall MD Eosinophils (Bld) [#/Vol] 0.40 10*3/uL Normal 0.0-0.4 [facility] Comment on above: Performed By: #### T SH #### [facility] [address] [place], [place] [phone] Shift Stacker: Chandler Mccall MD Eosinophils/100 WBC (Bld) 5 % Normal 0-5 [facility] Comment on above: Performed By: #### T SH #### [facility] [address], [place] [phone] Shift Stacker: Chandler Mccall MD Erythrocyte distribution width (RBC) [Ratio] 12.7 % Normal 12.1-15.2 [facility] Comment on above: Performed By: #### T SH #### [facility] [address], [place] [phone] Shift Stacker: Chandler Mccall MD Hematocrit (Bld) [Volume fraction] 37.1 % Normal 36-46 [facility] Comment on above: Performed By: #### T SH #### [facility] [address], [place] [phone] Shift Stacker: Chandler Mccall MD Hemoglobin (Bld) [Mass/Vol] 12.7 g/dL Normal 12.0-16.0 [facility] Comment on above: Performed By: #### T SH #### [facility] [address], [place] [phone] Shift Stacker: Chandler Mccall MD Lymphocytes (Bld) [#/Vol] 2.50 10*3/uL Normal 1.0-4.8 [facility] Comment on above: Performed By: #### T SH #### [facility] [address], [place] [phone] Shift Stacker: Chandler Mccall MD Lymphocytes/100 WBC (Bld) 31 % Normal 15-40 [facility] Comment on above: Performed By: #### T SH #### [facility] [address], [place] [phone] Shift Stacker: Chandler Mccall MD MCH (RBC) [Entitic mass] 29.9 pg Normal 26-34 [facility] Comment on above: Performed By: #### T SH #### [facility] [address], [place] [phone] Shift Stacker: Chandler Mccall MD MCHC (RBC) [Mass/Vol] 34.2 g/dL Normal 31-37 [facility] Comment on above: Performed By: #### T SH #### [facility] [address], [place] [phone] Shift Stacker: Chandler Mccall MD MCV (RBC) [Entitic vol] 87.4 fL Normal 80-100 [facility] Comment on above: Performed By: #### T SH #### [facility] [address], [place] [phone] Shift Stacker: Chandler Mccall MD Monocytes (Bld) [#/Vol] 0.60 10*3/uL Normal 0.0-1.0 [facility] Comment on above: Performed By: #### T SH #### [facility] [address] [place] [address] Shift Stacker: Chandler Mccall MD Monocytes/100 WBC (Bld) 7 % Normal 4-8 [facility] Comment on above: Performed By: #### T SH #### [facility] [address], [place] [phone] Shift Stacker: Chandler Mccall MD Neutrophil (Seg) 56 % Normal 47-75 [facility] Comment on above: Performed By: #### T SH #### [facility] [address], [place] [phone] Shift Stacker: Chandler Mccall MD Platelets (Bld) [#/Vol] 292 10*3/uL Normal 140-450 [facility] Comment on above: Performed By: #### T SH #### [facility] [address], [place] [phone] Shift Stacker: Chandler Mccall MD RBC (Bld) [#/Vol] 4.24 10*6/uL Normal 4.0-5.2 [facility] Comment on above: Performed By: #### T SH #### [facility] [address], [place] [phone] Shift Stacker: Chandler Mcacll MD WBC (Bld) [#/Vol] 8.1 10*3/uL Normal 3.5-11.0 [facility] Comment on above: Performed By: #### T SH #### [facility] [address] [place] [address] Shift Stacker: Chandler Mccall MD Abs.Imm.Granulocyte NOT REPORTED Normal 0.00-0.30 [facility] Comment on above: Performed By: #### T SH #### [facility] [address], [place] [phone] Shift Stacker: Chandler Mccall MD Immature granulocytes (Bld) [#/Vol] NOT REPORTED Normal 0 [facility] Comment on above: Performed By: #### T SH #### [facility] [address] [place] [address] Shift Stacker: Chandler Mccall MD NRBC Automated NOT REPORTED Normal [facility] Comment on above: Performed By: #### T SH #### [facility] [address], [place] [phone] Shift Stacker: Chandler Mccall MD Platelet mean volume (Bld) [Entitic vol] NOT REPORTED Normal 6.0-12.0 [facility] Comment on above: Performed By: #### T SH #### [facility] [address], [place] [phone] Shift Stacker: Chandler Mccall MD Platelets (Bld) [#/Vol] NOT REPORTED Normal [facility] Comment on above: Performed By: #### T SH #### [facility] [address], [place] [phone] Shift Stacker: Chandler Mccall MD RBC morphology finding Nom (Bld) NOT REPORTED Normal [facility] Comment on above: Performed By: #### T SH #### [facility] [address], [place] [phone] Shift Stacker: Chandler Mccall MD WBC Morphology NOT REPORTED Normal [facility] Comment on above: Performed By: #### T SH #### [facility] [address] [place] [address] Shift Stacker: Chandler Mccall MD HCG, ,Urineon 04-25 Beta HCG ( test) Ql (U) Negative Normal NEG [facility] Comment on above: Performed By: #### U HCG, UA, UMICAO #### [facility] [address] [place] [address] Shift Stacker: Florentino Galvan MD Microscopic Urinalysison Amorphous, UA NOT REPORTED None [facility]- [place], [place] Bacteria, UA RARE Abnormal None [facility], [place] Casts UA NOT REPORTED /LPF [facility], [place] Crystals, UA NOT REPORTED None /HPF [facility]- [place], [place] Epithelial Cells UA 2 TO 5 /HPF [facility], [place] Interpretation and review of laboratory results Abnormal [facility], [place] Mucus, UA NOT REPORTED None [facility], [place] Other Observations UA NOT REPORTED NOT REQ. M [facility], [place] RBC (U) [#/Vol] 2 TO 5 [facility] [place] Renal Epithelial, UA NOT REPORTED 0 /HPF [facility]- [place] Trichomonas, UA NOT REPORTED None [facility]- [place] WBC, UA 5 TO 10 0 /HPF [facility], [place] Yeast, UA NOT REPORTED None [facility] - [facility] Otheron 04-25-2020 Immature granulocytes (Bld) [#/Vol] NOT REPORTED 0 % [place], [place] , Urineon 0 Beta HCG ( test) Ql (U) Negative NEGATIVE [place] Urinalysis, Routineon 2019 Acetoacetic Acid,Ur Negative Normal NEG [facility] Comment on above: Performed By: #### U HCG, UA, UMICAO #### [facility] [address] [place] [address] Shift Stacker: Florentino Galvan MD Bilirubin, SemiQt,Ur Negative Normal NEG [facility] Comment on above: Performed By: #### U HCG, UA, UMICAO #### [facility] [address] [place] [address] Shift Stacker: Florentino Galvan MD Color (U) YELLOW Normal L [facility] Comment on above: Performed By: #### U HCG, UA, UMICAO #### [facility] [address] [id number] Shift Stacker: Florentino Galvan MD Comment Normal [facility] Comment on above: Performed By: #### U HCG, UA, UMICAO #### [facility] [address] [place] [address] Shift Stacker: Florentino Galvan MD Glucose Ql (U) Negative Normal [facility] Comment on above: Performed By: #### U HCG, UA, UMICAO #### [facility] [address] [id number] Shift Stacker: Florentino Galvan MD Hemoglobin, Ur TRACE Abnormal NEG [facility] Comment on above: Performed By: #### U HCG, UA, UMICAO #### [facility] [address] [id number] Shift Stacker: Florentino Galvan MD Leukocyte esterase Test strip Ql (U) 1+ Abnormal NEG [facility] Comment on above: Performed By: #### U HCG, UA, UMICAO #### [facility] [address] [place], [place] [id number] Shift Stacker: Florentino Galvan MD Nitrite,Ur Negative Normal NEG [facility] Comment on above: Performed By: #### U HCG, UA, UMICAO #### [facility] [address] [place], [place] [id number] Shift Stacker: Florentino Galvan MD pH (U) 5.0 [pH] Normal 5.0-8.0 [facility] Comment on above: Performed By: #### U HCG, UA, UMICAO #### [facility] [address] [place], [place] [id number] Shift Stacker: Florentino Galvan MD Protein Ql (U) Negative Normal NEG [facility] Comment on above: Performed By: #### U HCG, UA, UMICAO #### [facility] [address] [place], [place] [id number] Shift Stacker: Florentino Galvan MD Specific gravity (U) [Rel density] 1.025 Normal 1.005-1.030 [facility] Comment on above: Performed By: #### U HCG, UA, UMICAO #### [facility] [address] [place], [place] [id number] Shift Stacker: Florentino Galvan MD Turbidity CLEAR Normal CLEAR [facility] Comment on above: Performed By: #### U HCG, UA, UMICAO #### [facility] [address] [place], [place] [id number] Shift Stacker: Florentino Galvan MD Urobilinogen,Ur Normal Normal NORM [facility] Comment on above: Performed By: #### U HCG, UA, UMICAO #### [facility] [address] [place], [place] [id number] Shift Stacker: Florentino Galvan MD Urinalysis, reflex to micros copicon 04-25-2020 Bilirubin Urine Negative NEGATIVE [facility] [place], [place] Color, UA YELLOW YELLOW [place], [place] Glucose, Ur Negative NEGATIVE [place] Interpretation and review of laboratory results Abnormal [place] Ketones Ql (U) Negative NEGATIVE [place], [place] Leukocyte esterase Test strip Ql (U) 1+ Abnormal NEGATIVE [place] Nitrite, Urine Negative NEGATIVE [place] pH, UA 5.0 [place] Protein (U) [Mass/Vol] Negative NEGATIVE [place] Specific [place], UA 1.025 [place], [place] Turbidity UA CLEAR CLEAR [place] Urinalysis Comments [place] Urine Hgb TRACE Abnormal NEGATIVE [place] Urobilinogen, Urine Normal Normal [place] Urinalysis,Microon 0 ----- Normal [facility] Comment on above: Performed By: #### U HCG, UA, UMICAO #### [facility] [address] [place], [place] [id number] Shift Stacker: Florentino Galvan MD Bacteria LM.HPF (Urine sed) [#/Area] RARE Abnormal NONE [facility] Comment on above: Performed By: #### U HCG, UA, UMICAO #### [facility] [address] [place] [address] [phone] Shift Stacker: Florentino Galvan MD Epithelial cells LM.HPF (Urine sed) [#/Area] 2 TO 5 Normal [facility] Comment on above: Performed By: #### U HCG, UA, UMICAO #### [facility] [address] [place] [address] ([phone] Shift Stacker: Florentino Galvan MD RBC (U) [#/Vol] 2 TO 5 Normal 0-2 [facility] Comment on above: Performed By: #### U HCG, UA, UMICAO #### [facility] [address] [place] [address] Shift Stacker: Florentino Galvan MD WBC (U) [#/Vol] 5 TO 10 Normal 0 [facility] Comment on above: Performed By: #### U HCG, UA, UMICAO #### [facility] [address] [place], [place] [phone] Shift Stacker: Florentino Galvan MD Amorphous sediment LM Ql (Urine sed) NOT REPORTED Normal NONE [facility] Comment on above: Performed By: #### U HCG, UA, UMICAO #### [facility] [address] [place] [address] Shift Stacker: Florentino Galvan MD Casts LM.LPF (Urine sed) [#/Area] NOT REPORTED Normal [facility] Comment on above: Performed By: #### U HCG, UA, UMICAO #### [facility] [address] [place] [address] Shift Stacker: Florentino Galvan MD Crystals LM Nom (Urine sed) NOT REPORTED Normal NONE [facility] Comment on above: Performed By: #### U HCG, UA, UMICAO #### [facility] [address] [place] [address] Shift Stacker: Florentino Galvan MD Epithelial, Renal NOT REPORTED Normal 0 [facility] Comment on above: Performed By: #### U HCG, UA, UMICAO #### [facility] [address] [place], [place] [phone] Shift Stacker: Florentino Galvan MD Mucus Strands NOT REPORTED Normal NONE [facility] Comment on above: Performed By: #### U HCG, UA, UMICAO #### [facility] [address] [place] [address] Shift Stacker: Florentino Galvan MD Other Observations NOT REPORTED Normal NREQ [facility] Comment on above: Performed By: #### U HCG, UA, UMICAO #### [facility] [address] [place] [address] Shift Stacker: Florentino Galvan MD Trichomonas NOT REPORTED Normal NONE [facility] Comment on above: Performed By: #### U HCG, UA, UMICAO #### [facility] [address] [place] [address] Shift Stacker: Florentino Galvan MD Yeast LM Ql (Urine sed) NOT REPORTED Normal NONE [facility] Comment on above: Performed By: #### U HCG, UA, UMICAO #### [facility] [address] [place] [address] Shift Stacker: Florentino Galvan MD Cystoscopy, Remove Calculus, Simpleon [...] the procedure well with no immediate complications [facility] XR ABDOMEN /KUB/FLAT PLATE/1 VIEWon 10-22-2019 XR [...] calcifications likely phlebolithic. 4. Nonobstructive bowel pattern. [employer] Workstation ID: [id number] Dictated by: JENNIFER SALMON on SunOct 22, 2019 8:39:19 AM EDT Transcribed by: KOBI MAZARIEGOS on SunOct 22, 2019 9:02:09 AM EDT Finalized by: JENNIFER SALMON on SunOct 22, 2019 9:11:19 AM EDT Normal [facility] Comment on above: Order Comment: Injur [...] calcifications likely phlebolithic. 4. Nonobstructive bowel pattern. [employer] Workstation ID: [id number] [facility] EXAMINATION: XR ABDO MEN /KUB/FLAT PLATE/1 VIEW [...] nonspecific and nonobstructive. Bowel pattern is nonobstructive. [facility] Interface, Rad In Fu ji Speechq - 10/22/2019 9:13 [...] calcifications likely phlebolithic. 4. Nonobstructive bowel pattern. [facility] Workstation ID: [id number] [facility] XR OR FLUOROSCOPY TIMEon XR OR FLUOROSCOPY TIME This is an auto finalized result. Please refer to patient chart for further information. further information. further information. Normal [facility] Comment on above: Order Comment: Injur y/Trauma or Illness?:Illness/Other How long have you had these symptoms (acute/chronic)?:Acute Reason for exam?:bilateral stone removal, left stent placement Type of Exam?:Initial Additional signs and symptoms?:none Fluoro time in minutes:1.73 Fluoro dose in mGy?:29 XR OR Fluoroscopy Timeon This is an auto finalized result. Please refer to patient chart for further information. [facility] XR OR RETROGRADE PYELOGRAMon 10-22-2019 Operative procedure with fluoroscopic guidance. Please see the procedural report for additional details. Workstation ID: [id number] [facility] EXAMINATION: XR OR RETROGRADE PYELOGRAM HISTORY: ORDERING SYSTEM PROVIDED HISTORY: stone, TECHNOLOGIST PROVIDED HISTORY: Illness/Other Reason for exam: bilateral stone removal, left stent placement Encounter Type: Initial Additional signs and symptoms: none Fluoro dose in mGy: 29 ORDERING SYSTEM PROVIDED DIAGNOSIS CODES: COMPARISON: KUB from [place] of 10/22/2027 at 8:19 a.m.. TECHNICAL DATA: [...] demonstrate limited filling of lower pole infundibulum. [facility] Interface, Rad In Fu ji Speechq - 10/22/2019 4:01 PM EDT EXAMINATION: XR OR RETROGRADE PYELOGRAM HISTORY: ORDERING SYSTEM PROVIDED HISTORY: stone, TECHNOLOGIST PROVIDED HISTORY: Illness/Other Reason for exam: bilateral stone removal, left stent placement Encounter Type: Initial Additional signs and symptoms: none Fluoro dose in mGy: 29 ORDERING SYSTEM PROVIDED DIAGNOSIS CODES: COMPARISON: KUB from [place] of 10/22/2027 at 8:19 a.m.. TECHNICAL DATA: [...] report for additional details. Workstation ID: [id number] [facility] XR OR RETROGRADE PYELOGRAM EXAMINATION: XR OR [...] SunOct 22, 2019 3:58:25 PM EDT Normal [facility] Comment on above: Order Comment: Injur y/Trauma or Illness?:Illness/Other How long have you had these symptoms (acute/chronic)?:Acute Reason for exam?:bilateral stone removal, left stent placement Type of Exam?:Initial Additional signs and symptoms?:none Fluoro time in minutes:1.73 Fluoro dose in mGy?:29 [facility] Ql (U) Negative Negative [facility] Interpretation and review of laboratory results Normal [facility] 10-21-2019 Anion gap [Moles/Vol] 10 mmol/L 10 - 2 0 mmol/L [facility] Calcium [Mass/Vol] 8.9 mg/dL 8.4 - 10. 2 mg/dL [facility] Chloride [Moles/Vol] 108 mmol/L 98 - 10 8 mmol/L [facility] Creatinine [Mass/Vol] 1.20 mg/dL High 0.40 - 1.10 [facility] GFR/1.73 sq M predicted among non-blacks MDRD (S/P/Bld) [Vol rate/Area] The eGFR should be used for monitoring renal function only and not for medication dosing. [facility] GFR/1.73 sq M.predicted CKD-EPI (S/P/Bld) [Vol rate/Area] 57 Low >=60 mL/min/1.73 m2 [facility] Glucose [Mass/Vol] 106 mg/dL High 65 - 99 mg/dL [facility] HCO3 [Moles/Vol] 26 mmol/L 21 - 32 mmol/L [facility] Interpretation and review of laboratory results Abnormal [facility] Potassium [Moles/Vol] 3.5 mmol/L 3.5 - 5.1 mmol/L [facility] Sodium [Moles/Vol] 140 mmol/L 135 - 145 mmol/L [facility] Urea nitrogen [Mass/Vol] 16 mg/dL 8 - 25 mg/dL [facility] Urea nitrogen/Creatinine [Mass ratio] 13.3 mg/mg [facility] CBC WITH AUTO DIFFERENTIALon 10-21-2019 Basophils (Bld) [#/Vol] 0.03 10*3/uL [facility] Basophils/100 WBC (Bld) 0.3 % [facility] Eosinophils (Bld) [#/Vol] 0.05 10*3/uL [facility] Eosinophils/100 WBC (Bld) 0.4 % [facility] Erythrocyte distribution width (RBC) [Entitic vol] 12.3 % 11.6 - 14.8 % [facility] Hematocrit (Bld) [Volume fraction] 36.9 % 36 - 46 % [facility] Hemoglobin (Bld) [Mass/Vol] 12.8 g/dL 12 - 16 g/dL [facility] Immature granulocytes (Bld) [#/Vol] 0.02 10*3/uL [facility] Immature granulocytes/100 WBC (Bld) 0.20 % [facility] Comment on above: The IG parameter is the percentage of metamyelocytes, myelocytes, and promyelocytes. Interpretation and review of laboratory results Abnormal [facility] Lymphocytes (Bld) [#/Vol] 1.17 10*3/uL [facility] Lymphocytes/100 WBC (Bld) 10.4 % [facility] MCH (RBC) [Entitic mass] 29.6 pg 26 - 34 pg [facility] MCHC (RBC) [Mass/Vol] 34.7 g/dL 31 - 3 7 g/dL [facility] MCV (RBC) [Entitic vol] 85.4 fL 80 - 100 fL [facility] Monocytes (Bld) [#/Vol] 0.61 10*3/uL [facility] Monocytes/100 WBC (Bld) 5.4 % [facility] Neutrophils (Bld) [#/Vol] 9.34 10*3/uL High [facility] Neutrophils/100 WBC (Bld) 83.3 % [facility] Platelet mean volume (Bld) [Entitic vol] 9.9 fL 9 - 15.5 fL [facility] Platelets (Bld) [#/Vol] 283 10*3/uL [facility] RBC (Bld) [#/Vol] 4.32 10*6/uL [facility] WBC (Bld) [#/Vol] 11.22 10*3/uL [facility] CT KIDNEY STONEon 10-21-2019 CT KIDNEY [...] on SunOct 21, 2019 5:34:33 PM EDT [facility] Comment on above: Order Comment: Injur y/Trauma or Illness?:Illness/Other How long have you had these symptoms (acute/chronic)?:Acute Reason for exam?:Flank pain; LLQ pain/hx kidney stone hx of kidney stones x 5 months Type of Exam?:Initial Additional signs and symptoms?:nausea HCG (QUALITATIVE)on 10-21-19 20 Beta HCG ( test) Ql Negative Negative [facility] Interpretation and review of laboratory results Normal [facility] Negative: The result is less than or equal to 5 mIU/mL of HCG. [facility] Hepatic Function Panel (LFT) on 10-21-2019 Albumin [Mass/Vol] 3.8 g/dL 3.2 - 5.2 g/dL [facility] ALP [Catalytic activity/Vol] 68 U/L 40 - 140 U/L [facility] ALT [Catalytic activity/Vol] 22 U/L 0 - 40 U/L [facility] AST [Catalytic activity/Vol] 19 U/L 0 - 45 U/L [facility] Bilirubin [Mass/Vol] 0.5 mg/dL 0 - 1.3 mg/dL [facility] Bilirubin.conjugated [Mass/Vol] 0.1 mg/dL 0 - 0.4 mg/dL [facility] Protein [Mass/Vol] 7.5 g/dL 6 - 8 g/dL [facility] alth Lipaseon 10-21-2019 Lipase [Catalytic activity/Vol] 157 U/L 73 - 393 U/L [facility] Otheron 10-21-2019 Extra Tube Hold for add-ons. [facility] Comment on above: Auto resulted. Interpretation and review of laboratory results Normal [facility] URINALYSISon 10-21-2019 Bacteria Auto Ql (U) None Seen None Se en /hpf [facility] Bilirubin Ql (U) Negative Negative [facility] th Calcium oxalate crystals Computer assisted (U) [#/Area] Rare Abnormal None Seen /hpf [facility] Clarity Refractometry automated (U) Cloudy Abnormal Clear [facility] Color (U) Yellow Colorless, Yellow [facility] Crystals.amorphous Computer assisted (U) [#/Area] Many Abnormal None Seen, Rare /hpf [facility] Epithelial cells.squamous Auto (Urine sed) [#/Area] 20 High [facility] Glucose Auto test strip (U) [Mass/Vol] Negative Negative mg/dL [facility] Hemoglobin Auto test strip Ql (U) Small Abnormal Negative [facility] Interpretation and review of laboratory results Abnormal [facility] Ketones (U) [Mass/Vol] Negative Negative mg/dL [facility] Leukocyte esterase Auto test strip Ql (U) Negative Negative [facility] Mucus Auto (Urine sed) [#/Area] Rare None Seen, Rare /lpf [facility] Nitrite Auto test strip Ql (U) Negative Negative [facility] pH (U) 8.5 [pH] High [facility] Protein (U) [Mass/Vol] 30 Abnormal Negative mg/dL [facility] Comment on above: False positive resul ts may occur in urines with large amounts of hemoglobin, pH greater than 8.0, contrast medium, or disinfectants including ammonium compounds. RBC Auto (Urine sed) [#/Area] 1 [facility] Specific gravity (U) [Rel density] 1.020 [facility] Urobilinogen (U) [Mass/Vol] <2.0 <2.0 mg/dL [facility] WBC Auto (Urine sed) [#/Area] 1 [facility] Microscopic examinat ion is performed on all urinalysis samples and only positive findings are reported. The test for blood on the chemical analytic portion of urinalysis may also be positive due to hemoglobinuria and myoglobinuria and if red blood cells are present they are quantified by microscopic examination. [facility] CT ABDOMEN/PELVIS WITHOUT CO NTRASTon 08-03-2019 CT [...] acute bowel inflammatory changes. Unremarkable appendix. Normal [facility] CBCon 08-02-2019 ABSOLUTE BAS 0.0 10*3/uL Normal 0.0-0.2 [facility] Comment on above: Performed By: #### A CBC, CHEM7F #### Testing performed at [address] [address] ABSOLUTE EOS 0.20 10*3/uL Normal 0.0-0.7 [facility] Comment on above: Performed By: #### A CBC, CHEM7F #### Testing performed at [address] [address] ABSOLUTE NEUTROPHIL COUNT 3.6 10*3/uL Normal 1.4-6.5 [facility] Comment on above: Performed By: #### A CBC, CHEM7F #### Testing performed at [address] [address] Basophils/100 WBC (Bld) 0.1 % Normal 0.0-2.0 [facility] Comment on above: Performed By: #### A CBC, CHEM7F #### Testing performed at [address] [address] DTYPE AUTO DIFF Normal [facility] Comment on above: Performed By: #### A CBC, CHEM7F #### Testing performed at [address] [address] Eosinophils/100 WBC (Bld) 4.8 % Normal 0.0-11.0 [facility] Comment on above: Performed By: #### A CBC, CHEM7F #### Testing performed at [address] [address] Lymphocytes (Bld) [#/Vol] 0.40 10*3/uL Low 1.2-3.4 [facility] Comment on above: Performed By: #### A CBC, CHEM7F #### Testing performed at [address] [address] Lymphocytes/100 WBC (Bld) 8.2 % Low 20.0-55.0 [facility] Comment on above: Performed By: #### A CBC, CHEM7F #### Testing performed at [address] [address] Monocytes (Bld) [#/Vol] 0.4 10*3/uL Normal 0.0-0.7 [facility] Comment on above: Performed By: #### A CBC, CHEM7F #### Testing performed at [address] [address] Monocytes/100 WBC (Bld) 9.0 % Normal 0.0-10.0 [facility] Comment on above: Performed By: #### A CBC, CHEM7F #### Testing performed at [address] [address] Neutrophils/100 WBC (Bld) 77.9 % High 37.0-75.0 [facility] Comment on above: Performed By: #### A CBC, CHEM7F #### Testing performed at [address] [address] Erythrocyte distribution width (RBC) [Ratio] 13.0 % Normal 11.5-14.5 [facility] Comment on above: Performed By: #### A CBC, CHEM7F #### Testing performed at [address] [address] Hematocrit (Bld) [Volume fraction] 37.5 % Normal 36.0-48.0 [facility] Comment on above: Performed By: #### A CBC, CHEM7F #### Testing performed at [address] [address] Hemoglobin (Bld) [Mass/Vol] 12.7 g/dL Normal 12.0-16.0 [facility] Comment on above: Performed By: #### A CBC, CHEM7F #### Testing performed at [address] [address] MCH (RBC) [Entitic mass] 29.9 pg Normal 26.0-35.0 [facility] Comment on above: Performed By: #### A CBC, CHEM7F #### Testing performed at [address] [address] MCHC (RBC) [Mass/Vol] 33.8 g/dL Normal 27.0-37.0 [facility] Comment on above: Performed By: #### A CBC, CHEM7F #### Testing performed at [address] [address] MCV (RBC) [Entitic vol] 88.7 fL Normal 80.0-100.0 [facility] Comment on above: Performed By: #### A CBC, CHEM7F #### Testing performed at [address] [address] Platelet mean volume (Bld) [Entitic vol] 8.7 fL Normal 7.4-11.0 [facility] Comment on above: Performed By: #### A CBC, CHEM7F #### Testing performed at [address] [address] Platelets (Bld) [#/Vol] 176 10*3/uL Normal 130.0-400.0 [facility] Comment on above: Performed By: #### A CBC, CHEM7F #### Testing performed at [address] [address] RBC (Bld) [#/Vol] 4.23 10*6/uL Normal 4.0-5.4 [facility] Comment on above: Performed By: #### A CBC, CHEM7F #### Testing performed at [address] [address] WBC (Bld) [#/Vol] 4.6 10*3/uL Normal 3.6-11.0 [facility] Comment on above: Performed By: #### A CBC, CHEM7F #### Testing performed at [address] [address] CBC, EDIF, PL[employer] 2018 ABSOLUTE BASOPHIL COUNT 0.0 10*3/uL 0 - 0.2 10*3/uL [facility] Basophils/100 WBC (Bld) 0.1 % 0 - 2 % [facility] [employer] Differential cell count method Nom (Bld) AUTO DIFF % [facility] Eosinophils (Bld) [#/Vol] 0.20 10*3/uL 0 - 0.7 10*3/uL [facility] Eosinophils/100 WBC (Bld) 4.8 % 0 - 11 % [facility] Erythrocyte distribution width (RBC) [Ratio] 13.0 % 11.5 - 14.5 % [facility] Hematocrit (Bld) [Volume fraction] 37.5 % 36 - 48 % [facility] Hemoglobin (Bld) [Mass/Vol] 12.7 g/dL [facility] Lymphocytes (Bld) [#/Vol] 0.40 10*3/uL Low 1.2 - 3.4 10*3/uL [facility] Lymphocytes/100 WBC (Bld) 8.2 % Low 20 - 55 % [facility] MCH (RBC) [Entitic mass] 29.9 pg 26 - 35 PG [facility] MCHC (RBC) [Mass/Vol] 33.8 g/dL [facility] MCV (RBC) [Entitic vol] 88.7 fL [facility] Monocytes (Bld) [#/Vol] 0.4 10*3/uL 0 - 0.7 10*3/uL [facility] Monocytes/100 WBC (Bld) 9.0 % 0 - 10 % [facility] Neutrophils (Bld) [#/Vol] 3.6 10*3/uL 1.4 - 6.5 10*3/uL [facility] Neutrophils/100 WBC (Bld) 77.9 % High 37 - 75 % [facility] Platelet mean volume (Bld) [Entitic vol] 8.7 fL [facility] Platelets (Bld) [#/Vol] 176 10*3/uL 130 - 400 10*3/uL [facility] RBC (Bld) [#/Vol] 4.23 10*6/uL 4 - 5.4 10*6/uL [facility] WBC (Bld) [#/Vol] 4.6 10*3/uL 3.6 - 11 10*3/uL [facility] CHEM 7 FASTINGon 08-02-2019 Creatinine [Mass/Vol] 0.98 mg/dL Normal 0.52-1.04 [facility] Comment on above: Performed By: #### A CBC, CHEM7F #### Testing performed at [facility] [address] [address] EST. GFR, >60 Normal [facility] Comment on above: Performed By: #### A CBC, CHEM7F #### Testing performed at [address] [address] EST. GFR,Non >60 Normal [facility] Comment on above: Performed By: #### A CBC, CHEM7F #### Testing performed at [address] [address] GFR/1.73 sq M predicted among non-blacks MDRD (S/P/Bld) [Vol rate/Area] Average GFR for 30-39 years old = 109. Normal [facility] Comment on above: Result Comment: Score Caller denny Kidney disease, GFR = <60. Kidney failure, GFR = <15. The GFR estimate is not adjusted for extreme body surface area or acute process, nor has it been validated for women or ethnic groups other than and . Performed By: #### A CBC, CHEM7F #### Testing performed at [address] [address] Urea nitrogen [Mass/Vol] 9 mg/dL Normal 7-20 [facility] Comment on above: Performed By: #### A CBC, CHEM7F #### Testing performed at [address] [address] Chloride [Moles/Vol] 100 mmol/L Normal 98-107 [facility] Comment on above: Performed By: #### A CBC, CHEM7F #### Testing performed at [address] [address] CO2 [Moles/Vol] 20 mmol/L Low 22-30 [facility] Comment on above: Performed By: #### A CBC, CHEM7F #### Testing performed at [address] [address] Glucose [Mass/Vol] 93 mg/dL Normal 70-100 [facility] Comment on above: Result Comment: NORMAL <100 mg/dL PREDIABETES 101-126 mg/dL DIABETES 126 mg/dL or higher Performed By: #### A CBC, CHEM7F #### Testing performed at [address] [address] Potassium [Moles/Vol] 3.6 mmol/L Normal 3.5-5.1 [facility] Comment on above: Performed By: #### A CBC, CHEM7F #### Testing performed at [address] [address] Sodium [Moles/Vol] 132 mmol/L Low 136-145 [facility] Comment on above: Performed By: #### A CBC, CHEM7F #### Testing performed at [address] [address] CHEM 7 (LYTES,BUN,CREA,GLUC) on 08-02-2019 Chloride [Moles/Vol] 100 mmol/L [facility] CO2 [Moles/Vol] 20 mmol/L Low [facility] Creatinine [Mass/Vol] 0.98 mg/dL [facility] GFR/1.73 sq M predicted among blacks MDRD (S/P/Bld) [Vol rate/Area] mL/min/{1.73_m2} ml/min/1.73 sq.m [facility] [facility] GFR/1.73 sq M predicted among non-blacks MDRD (S/P/Bld) [Vol rate/Area] mL/min/{1.73_m2} ml/min/1.73 sq.m [facility] GFR/1.73 sq M predicted among non-blacks MDRD (S/P/Bld) [Vol rate/Area] Average GFR for 30-39 years old = 109. [facility] Comment on above: Chronic Kidney disea se, GFR = <60. Kidney failure, GFR = <15. The GFR estimate is not adjusted for extreme body surface area or acute process, nor has it been validated for women or ethnic groups other than and . Glucose post fast [Mass/Vol] 93 mg/dL [facility] Comment on above: NORMAL <100 mg/dL PREDIABETES 101-126 mg/dL DIABETES 126 mg/dL or higher Potassium [Moles/Vol] 3.6 mmol/L [facility] Sodium [Moles/Vol] 132 mmol/L Low [facility] Urea nitrogen [Mass/Vol] 9 mg/dL [facility] CT ABDOMEN/PELVIS WITHOUT CO NTRASTon 08-02-2019 User, [...] No significant pelvic free fluid is present. [facility] IMPRESSION: 6 mm calculus positioned at the [...] of acute bowel inflammatory changes. Unremarkable appendix. [facility] HCG QUALITATIVE, URINEon HCG ( test) Ql (U) Negative NEGATIVE [facility] LACTATE, BLOODon 08-02-2019 Lactate [Moles/Vol] 1.2 mmol/L [facility] LACTIC ACIDon 08-02-2019 Lactate [Moles/Vol] 1.2 mmol/L Normal 0.5-2.0 [facility] Comment on above: Performed By: #### L ACT #### Testing performed at [facility] [address] [place] [address], [place] [address] Otheron 08-02-2019 Interpretation and review of laboratory results Abnormal [facility] Interpretation and review of laboratory results Abnormal [facility] URINALYSIS, MACROon 08-02-20 19 Bilirubin Ql (U) Negative NEGATIVE [facility] Clarity (U) CLEAR CLEAR [facility] Color (U) YELLOW YELLOW [facility] Glucose Test strip (U) [Mass/Vol] Negative NEGATIVE mg/dl [facility] Hemoglobin Ql (U) MODERATE Abnormal NEGATIVE [facility] Ketones (U) [Mass/Vol] Negative NEGATIVE mg/dl [facility] Leukocyte esterase Test strip Ql (U) Negative NEGATIVE [facility] Nitrite Ql (U) Negative NEGATIVE [facility] pH (U) 6.0 [pH] [facility] Protein Ql (U) 30 mg/dl Abnormal NEGATIVE [facility] Specific gravity (U) [Rel density] >1.030 High [facility] Urobilinogen (U) [Mass/Vol] 1.0 [facility] URINE HCG QUALon 08-02-2019 Beta HCG ( test) Ql (U) Negative Normal NEGATIVE [facility] Comment on above: Performed By: #### U HCGT, UMAC, UMIC #### Testing performed at [address] [address] URINE MACROSCOPICon 08-02-20 19 Bilirubin Ql (U) Negative Normal NEGATIVE [facility] Comment on above: Performed By: #### U HCGT, UMAC, UMIC #### Testing performed at [address] [address] Clarity (U) CLEAR Normal CLEAR [facility] Comment on above: Performed By: #### U HCGT, UMAC, UMIC #### Testing performed at [address] [address] Color (U) YELLOW Normal YELLOW [facility] Comment on above: Performed By: #### U HCGT, UMAC, UMIC #### Testing performed at [address] [address] Glucose Ql (U) Negative Normal NEGATIVE [facility] Comment on above: Performed By: #### U HCGT, UMAC, UMIC #### Testing performed at [address] [address] pH (U) 6.0 [pH] Normal 5.0-7.0 [facility] Comment on above: Performed By: #### U HCGT, UMAC, UMIC #### Testing performed at [address] [address] Protein (U) [Mass/Vol] 30 mg/dL Abnormal NEGATIVE [facility] Comment on above: Performed By: #### U HCGT, UMAC, UMIC #### Testing performed at [address] [address] URINE HEMOGLOBIN MODERATE Abnormal NEGATIVE [facility] Comment on above: Performed By: #### U HCGT, UMAC, UMIC #### Testing performed at [address] [address] URINE KETONE Negative Normal NEGATIVE [facility] Comment on above: Performed By: #### U HCGT, UMAC, UMIC #### Testing performed at [address] [place] [address] URINE LEUKOTEST Negative Normal NEGATIVE [facility] Comment on above: Performed By: #### U HCGT, UMAC, UMIC #### Testing performed at [address] [place] [address] URINE NITRATES Negative Normal NEGATIVE [facility] Comment on above: Performed By: #### U HCGT, UMAC, UMIC #### Testing performed at [address] [address] URINE SPEC GRAVITY >1.030 High 1.010-1.025 [facility] Comment on above: Performed By: #### U HCGT, UMAC, UMIC #### Testing performed at [address] [address] Urobilinogen Qn (U) 1.0 {Levi'U}/dL Normal 0.2-1.0 [facility] Comment on above: Performed By: #### U HCGT, UMAC, UMIC #### Testing performed at [address] [address] URINE MICROSCOPICon 08-02-20 19 Bacteria LM.HPF (Urine sed) [#/Area] TRACE Abnormal NEGATIVE [facility] Comment on above: Performed By: #### U HCGT, UMAC, UMIC #### Testing performed at [address] [address] Casts LM.LPF (Urine sed) [#/Area] NONE Normal [facility] Comment on above: Performed By: #### U HCGT, UMAC, UMIC #### Testing performed at [address] [place] [address] CRYSTAL NONE Normal [facility] Comment on above: Performed By: #### U HCGT, UMAC, UMIC #### Testing performed at [address] [address] Epithelial cells LM.HPF (Urine sed) [#/Area] TOO NUMEROUS TO COUNT Normal [facility] Comment on above: Performed By: #### U HCGT, UMAC, UMIC #### Testing performed at [address] [address] Mucus Ql (Urine sed) Negative Normal NEGATIVE [facility] Comment on above: Performed By: #### U HCGT, UMAC, UMIC #### Testing performed at [address] [address] RBC (U) [#/Vol] 20 TO 30 Normal NEGATIVE [facility] Comment on above: Performed By: #### U HCGT, UMAC, UMIC #### Testing performed at [address] [address] URINE COMMENT POSSIBLY CONTAMINATE D SPECIMEN, CULTURE MUST BE ORDERED SEPARATELY IF DEEMED NECESSARY. Normal [facility] Comment on above: Performed By: #### U HCGT, UMAC, UMIC #### Testing performed at [address] [address] WBC (U) [#/Vol] Negative Normal NEGATIVE [facility] Comment on above: Performed By: #### U HCGT, UMAC, UMIC #### Testing performed at [address] [address] Bacteria LM.HPF (Urine sed) [#/Area] TRACE Abnormal NEGATIVE [facility] Casts LM.LPF (Urine sed) [#/Area] NONE NONE /LPF [facility] Crystals LM Nom (Urine sed) NONE NONE [facility] Epithelial cells LM Ql (Urine sed) TOO NUMEROUS TO COUNT /HPF [facility] Mucus Ql (Urine sed) Negative NEGATIVE [facility] RBC LM.HPF (Urine sed) [#/Area] 20 TO 30 NEGATIVE /HPF [facility] Urine sediment comments LM Dustin (Urine sed) POSSIBLY CONTAMINATED SPECIMEN, CULTURE MUST BE ORDERED SEPARATELY IF DEEMED NECESSARY. [facility] WBC LM.HPF (Urine sed) [#/Area] Negative NEGATIVE /HPF [facility] URINE CULTUREon 07-31-2019 Bacteria identified Cx Nom (U) SPECIMEN DESCRIPTION URINE CLEAN CATCH UA DIPSTICK NITRITE NEGATIVE * Result Note: LEUKOCYTE POSITIVE * CULTURE ESCHERICHIA COLI * Result Note: 50,000-100,000 C/C/ML * * Result Note: Testing performed at [facility], [place], [place] [address] * REPORT STATUS 07/31/2019 * Result Note: FINAL * ------- ORGANISM ESCHERICHIA COLI * Result Note: ESCHERICHIA COLI * METHOD YOON AMPICILLIN >=32 RESISTANT AMPICILLIN/SULBACTAM >=32 RESISTANT CEFTRIAXONE <=1 SUSCEPTIBLE CEFAZOLIN <=4 SUSCEPTIBLE IMIPENEM <=0.25 SUSCEPTIBLE GENTAMICIN <=1 SUSCEPTIBLE TRIMETH-SULFA <=20 SUSCEPTIBLE AMOXICILLIN/CLAVULANIC A 4 SUSCEPTIBLE NITROFURANTOIN <=16 SUSCEPTIBLE PIPERACILLIN/TAZOBACTAM <=4 SUSCEPTIBLE LEVOFLOXACIN <=0.12 SUSCEPTIBLE ESBL NEGATIVE CEFTAZIDIME <=1 SUSCEPTIBLE Normal [facility] Comment on above: Performed By: #### A URNC #### Testing performed at [facility] [address] [place] [address] Testing performed at [facility] [address] [place] [address] HCG QUALITATIVE, URINEon HCG ( test) Ql (U) Negative NEGATIVE [facility] Otheron 07-28-2019 Interpretation and review of laboratory results Abnormal [facility] URINALYSIS, MACROon 07-28-20 19 Bilirubin Ql (U) Negative NEGATIVE [facility] ALTH Clarity (U) CLOUDY Abnormal CLEAR [employer] [facility] Color (U) YELLOW YELLOW [employer] [place] [employer] Glucose Test strip (U) [Mass/Vol] Negative NEGATIVE mg/dl [facility] Hemoglobin Ql (U) MODERATE Abnormal NEGATIVE [facility] Ketones (U) [Mass/Vol] Negative NEGATIVE mg/dl [employer] [place] [employer] Leukocyte esterase Test strip Ql (U) LARGE Abnormal NEGATIVE [employer] [facility] Nitrite Ql (U) Negative NEGATIVE [facility] pH (U) 6.0 [pH] [facility] Protein Ql (U) 100 mg/dl Abnormal NEGATIVE [facility] Specific gravity (U) [Rel density] 1.020 [employer] Urobilinogen (U) [Mass/Vol] 0.2 [facility] URINE HCG QUALon 07-28-2019 Beta HCG ( test) Ql (U) Negative Normal NEGATIVE [facility] Comment on above: Performed By: #### U HCGT, UMAC, UMIC #### Testing performed at [address] [address] URINE MACROSCOPICon 07-28-20 Bilirubin Ql (U) Negative Normal NEGATIVE [facility] Comment on above: Performed By: #### U HCGT, UMAC, UMIC #### Testing performed at [address] [address] Clarity (U) CLOUDY Abnormal CLEAR [facility] Comment on above: Performed By: #### U HCGT, UMAC, UMIC #### Testing performed at [address] [address] Color (U) YELLOW Normal YELLOW [facility] Comment on above: Performed By: #### U HCGT, UMAC, UMIC #### Testing performed at [address] [address] Glucose Ql (U) Negative Normal NEGATIVE [facility] Comment on above: Performed By: #### U HCGT, UMAC, UMIC #### Testing performed at [address] [address] pH (U) 6.0 [pH] Normal 5.0-7.0 [facility] Comment on above: Performed By: #### U HCGT, UMAC, UMIC #### Testing performed at [address] [address] Protein (U) [Mass/Vol] 100 mg/dL Abnormal NEGATIVE [facility] Comment on above: Performed By: #### U HCGT, UMAC, UMIC #### Testing performed at [address] [address] URINE HEMOGLOBIN MODERATE Abnormal NEGATIVE [facility] Comment on above: Performed By: #### U HCGT, UMAC, UMIC #### Testing performed at [address] [address] URINE KETONE Negative Normal NEGATIVE [facility] Comment on above: Performed By: #### U HCGT, UMAC, UMIC #### Testing performed at [address] [address] URINE LEUKOTEST LARGE Abnormal NEGATIVE [facility] Comment on above: Performed By: #### U HCGT, UMAC, UMIC #### Testing performed at [address] [place] [address] URINE NITRATES Negative Normal NEGATIVE [facility] Comment on above: Performed By: #### U HCGT, UMAC, UMIC #### Testing performed at [address] [address] URINE SPEC GRAVITY 1.020 Normal 1.010-1.025 [facility] Comment on above: Performed By: #### U HCGT, UMAC, UMIC #### Testing performed at [address] [address] Urobilinogen Qn (U) 0.2 {Levi'U}/dL Normal 0.2-1.0 [facility] Comment on above: Performed By: #### U HCGT, UMAC, UMIC #### Testing performed at [address] [address] URINE MICROSCOPICon 07-28-20 19 Bacteria LM.HPF (Urine sed) [#/Area] 4+ Abnormal NEGATIVE [facility] Comment on above: Performed By: #### U HCGT, UMAC, UMIC #### Testing performed at [address] [address] Casts LM.LPF (Urine sed) [#/Area] NONE Normal [facility] Comment on above: Performed By: #### U HCGT, UMAC, UMIC #### Testing performed at [address] [place] [address] CRYSTAL NONE Normal [facility] Comment on above: Performed By: #### U HCGT, UMAC, UMIC #### Testing performed at [address] [address] Epithelial cells LM.HPF (Urine sed) [#/Area] TOO NUMEROUS TO COUNT Normal [facility] Comment on above: Performed By: #### U HCGT, UMAC, UMIC #### Testing performed at [address] [address] Mucus Ql (Urine sed) TRACE Abnormal NEGATIVE [facility] Comment on above: Performed By: #### U HCGT, UMAC, UMIC #### Testing performed at [place] [address] [place] [address] RBC (U) [#/Vol] 10 TO 20 Normal NEGATIVE [facility] Comment on above: Performed By: #### U HCGT, UMAC, UMIC #### Testing performed at [address] [address] URINE COMMENT REFLEX CULTURE PER ESTABLISHED CRITERIA. Normal [facility] Comment on above: Performed By: #### U HCGT, UMAC, UMIC #### Testing performed at [address] [address] WBC (U) [#/Vol] TOO NUMEROUS TO COUNT Abnormal NEGATIVE [facility] Comment on above: Performed By: #### U HCGT, UMAC, UMIC #### Testing performed at [address] [address] Bacteria LM.HPF (Urine sed) [#/Area] 4+ Abnormal NEGATIVE [facility] H Casts LM.LPF (Urine sed) [#/Area] NONE NONE /LPF [facility] Crystals LM Nom (Urine sed) NONE NONE [facility] Epithelial cells LM Ql (Urine sed) TOO NUMEROUS TO COUNT /HPF [facility] Mucus Ql (Urine sed) TRACE Abnormal NEGATIVE [facility] RBC LM.HPF (Urine sed) [#/Area] 10 TO 20 NEGATIVE /HPF [facility] Urine sediment comments LM Dustin (Urine sed) REFLEX CULTURE PER ESTABLISHED CRITERIA. [facility] WBC LM.HPF (Urine sed) [#/Area] TOO NUMEROUS TO COUNT Abnormal NEGATIVE /HPF [facility] Wet Prep, Genitalon 07-13-20 19 Direct Exam MANY BACTERIA Abnormal [place], [place] Direct Exam MODERATE YEAST Abnormal [place] Direct Exam MODERATE EPITHELIAL CELLS Abnormal [place] Direct Exam Few epithelials coat ed with bacteria resembling clue cells. Abnormal [place] Direct Exam NO TRICHOMONAS SEEN [place] Interpretation and review of laboratory results Abnormal [place] Special Requests NOT REPORTED [place] Specimen Description .VAGINA [place] WBC (Bld) [#/Vol] MODERATE WBC Abnormal [place] CBC Auto Differentialon 10-0 Basophils (Bld) [#/Vol] 0.00 10*3/uL [place] Basophils/100 WBC (Bld) 0 % 0 - 2 % [place] Differential Type YES [place] Eosinophils (Bld) [#/Vol] 0.30 10*3/uL [place] Eosinophils/100 WBC (Bld) 5 % 0 - 5 % [place] Erythrocyte distribution width (RBC) [Ratio] 13.0 % 12.1 - 15.2 % [place] Hematocrit (Bld) [Volume fraction] 38.5 % 36 - 46 % [place] Hemoglobin (Bld) [Mass/Vol] 13.1 g/dL 12 - 16 g/dL [place] Interpretation and review of laboratory results Abnormal [place] Lymphocytes (Bld) [#/Vol] 2.20 10*3/uL [place] Lymphocytes/100 WBC (Bld) 31 % 15 - 40 % [place] MCH (RBC) [Entitic mass] 30.6 pg 26 - 34 pg [place] MCHC (RBC) [Mass/Vol] 34.1 g/dL 31 - 3 7 g/dL [place] MCV (RBC) [Entitic vol] 89.9 fL 80 - 100 fL [place] Monocytes (Bld) [#/Vol] 0.60 10*3/uL [place] Monocytes/100 WBC (Bld) 9 % High 4 - 8 % [place] Platelet mean volume (Bld) [Entitic vol] NOT REPORTED 6 - 12 fL [place] Platelets (Bld) [#/Vol] 267 10*3/uL [place] Platelets (Bld) [#/Vol] NOT REPORTED [place] RBC (Bld) [#/Vol] 4.28 10*6/uL 4 - 5.2 m/uL [place] RBC morphology finding Nom (Bld) NOT REPORTED [place] Segmented neutrophils/100 WBC (Bld) 55 % 47 - 75 % [place] Segs Absolute 3.80 [place] WBC (Bld) [#/Vol] 6.9 10*3/uL [place] WBC (Bld) [#/Vol] NOT REPORTED per 100 WBC [place] WBC Morphology NOT REPORTED [place] CT ABDOMEN PELVIS WO CONTRAS Ton 05-14-2019 -Negative CT for obstructive renal, ureteric or bladder calculi. -Nonobstructive bilateral renal calculi. -Mild diffuse urinary bladder wall thickening may be accentuated due to nondistention, correlate with UA to exclude underlying cystitis. -Normal appendix. -IUD grossly intact. [place] CT ABDOMEN PELVIS WO CONTRAST; DATED [...] reconstruction technique. Quality of study: Adequate FINDINGS: Perinatal Specialist View: Negative for acute findings Limited evaluation [...] the umbilical region. No other acute findings. [facility]- [place], [place] Arvind, [employer] Incoming Radiant Results From [employer] - 05/14/2019 4:[address] ABDOMEN [...] reconstruction technique. Quality of study: Adequate FINDINGS: Perinatal Specialist View: Negative for acute findings Limited evaluation [...] underlying cystitis. -Normal appendix. -IUD grossly intact. [place] Comprehensive Metabolic Pane l w/ Reflex to MGon 05-14-2019 Albumin [Mass/Vol] 4.3 g/dL 3.5 - 5.2 g/dL [place] Albumin/Globulin [Mass ratio] NOT REPORTED [place] ALP [Catalytic activity/Vol] 62 U/L 35 - 104 U/L [place] ALT [Catalytic activity/Vol] 12 U/L 5 - 33 U/L [place] Anion gap [Moles/Vol] 9 mmol/L 9 - 17 mmol/L [place] AST [Catalytic activity/Vol] 15 U/L <32 [place] Bilirubin Ql (U) 0.45 mg/dL 0.3 - 1.2 mg/dL [place] Bun/Cre Ratio 13 [place] Calcium [Mass/Vol] 9.8 mg/dL 8.6 - 10. 4 mg/dL [place] Chloride [Moles/Vol] 104 mmol/L 98 - 10 7 mmol/L [place] CO2 [Moles/Vol] 25 mmol/L 20 - 31 mmol/L [place] Creatinine [Mass/Vol] 0.69 mg/dL 0.5 - 0.9 mg/dL [place] GFR >60 >60 mL/min [place] GFR Non- >60 >60 mL/min [place] GFR/1.73 sq M predicted among non-blacks MDRD (S/P/Bld) [Vol rate/Area] [place] Comment on above: Average GFR for 30-3 9 years old: 107 mL/min/1.73sq m Chronic Kidney Disease: <60 mL/min/1.73sq m Kidney failure: <15 mL/min/1.73sq m eGFR calculated using average adult body mass. Additional eGFR calculator available at: http://www.[employer]/multiple_crcl_2012.htm GFR/1.73 sq M predicted among non-blacks MDRD (S/P/Bld) [Vol rate/Area] NOT REPORTED [place] Glucose [Mass/Vol] 108 mg/dL High 70 - 99 mg/dL [place] Interpretation and review of laboratory results Abnormal [place] Potassium [Moles/Vol] 3.8 mmol/L 3.7 - 5.3 mmol/L [place] Protein [Mass/Vol] 7.5 g/dL 6.4 - 8.3 g/dL [place] Sodium [Moles/Vol] 138 mmol/L 135 - 144 mmol/L [place] Urea nitrogen [Mass/Vol] 9 mg/dL 6 - 20 mg/dL [place] HCG Qualitative, Serumon hCG Qual Negative NEGATIVE [place] Comment on above: Specimens with hCG l evels near the threshold of the test (25 mIU/mL) may give a negative or indeterminate result. In such cases, another test should be performed with a new specimen in 48-72 hours. If early is suspected clinically in this setting, correlation with quantitative serum b-hCG level is suggested. [facility] [employer] has confirmed the use of plasma for this test. This has not been cleared or approved by the U.S. Food and Drug Administration. The FDA has determined that such clearance is not necessary. Lipaseon 05-14-2019 Lipase [Catalytic activity/Vol] 46 U/L 13 - 60 U/L [place] Microscopic Urinalysison Amorphous, UA NOT REPORTED None [facility] [place] [place] Bacteria, UA 4+ Abnormal None [place] Casts UA NOT REPORTED /LPF [place] Crystals UA 1+ CALCIUM OXALATE Abnormal None /HPF [place] Epithelial Cells UA 2 TO 5 /HPF [place] Interpretation and review of laboratory results Abnormal [place] Mucus, UA NOT REPORTED None [place] Other Observations UA NOT REPORTED NOT REQ. [place] RBC (U) [#/Vol] 5 TO 10 [place] Renal Epithelial, Urine NOT REPORTED 0 /HPF [place] Trichomonas, UA NOT REPORTED None [place], [place] WBC, UA 10 TO 20 0 /HPF [place] Yeast, UA NOT REPORTED None [place] - [place] Otheron 05-14-2019 Immature granulocytes (Bld) [#/Vol] NOT REPORTED [place] Urinalysis, reflex to micros copicon 05-14-2019 Bilirubin Urine Negative NEGATIVE [place] Color, UA YELLOW YELLOW [place], [place] Glucose, Ur Negative NEGATIVE [place] Interpretation and review of laboratory results Abnormal [place] Ketones Ql (U) Negative NEGATIVE [place] Leukocyte esterase Test strip Ql (U) 2+ Abnormal NEGATIVE [place] Nitrite, Urine Positive Abnormal NEGATIVE [place] pH, UA 6.0 [place] Protein (U) [Mass/Vol] 1+ Abnormal NEGATIVE [place] Specific [place], UA 1.020 [place] Turbidity UA CLOUDY Abnormal CLEAR [place] Urinalysis Comments [place] Urine Hgb 3+ Abnormal NEGATIVE [place] Urobilinogen, Urine Normal Normal [place] Vital Signs Date Time Vital Sign Value Performing Clinician Adrianna garza 02-18-2024 19:00-0400 Diastolic blood pressure 62 mm[Hg] Marlen Hernandez DO Work Phone: [facility] 02-18-2024 19:00-0400 Heart rate 75 /min Marlen Hernandez DO Work Phone: [employer] 02-18-2024 19:00-0400 Respiratory rate 16 /min Marlen Hernandez DO Work Phone: [facility] [employer] 02-18-2024 19:00-0400 SaO2% (BldA) [Mass fraction] 96 % Marlen Prattg DO Work Phone: [employer] 02-18-2024 19:00-0400 Systolic blood pressure 110 mm[Hg] Marlen Prattg DO Work Phone: [employer] 02-18-2024 17:13-0400 Body temperature 97.3 [degF] Marlen Hernandez DO Work Phone: [facility] [employer] 02-18-2024 12:49-0400 Body height 165.1 cm Marlen Hernandez DO Work Phone: [facility] [employer] 02-18-2024 12:49-0400 Body mass index (BMI) [Ratio] 34.41 kg/m2 Marlen Hernandez DO Work Phone: [facility] [employer] 02-18-2024 12:49-0400 Body weight 93.8 kg Marlen Hernandez DO Work Phone: [facility] [employer] 11-29-2023 19:49-0400 Body temperature 97.59 [degF] Artie Burden MD Work Phone: [email or web address] [facility] 11-29-2023 19:49-0400 Diastolic blood pressure 71 mm[Hg] Artie Burden MD Work Phone: [employer] 11-29-2023 19:49-0400 Heart rate 89 /min Artie Burden MD Work Phone: [employer] [facility] 11-29-2023 19:49-0400 Respiratory rate 16 /min Artie Burden MD Work Phone: [employer] 11-29-2023 19:49-0400 SaO2% (BldA) [Mass fraction] 96 % Artie Burden MD Work Phone: [facility] 11-29-2023 19:49-0400 Systolic blood pressure 115 mm[Hg] Artie Burden MD Work Phone: [facility] 11-20-2022 09:00-0400 Diastolic blood pressure 60 mm[Hg] Jose Aden MD Work Phone: [facility] 11-20-2022 09:00-0400 Heart rate 72 /min Jose Aden MD Work Phone: [facility] 11-20-2022 09:00-0400 Respiratory rate 18 /min Jose Aden MD Work Phone: [facility] 11-20-2022 09:00-0400 SaO2% (BldA) [Mass fraction] 98 % Jose Aden MD Work Phone: [facility] 11-20-2022 09:00-0400 Systolic blood pressure 108 mm[Hg] Jose Aden MD Work Phone: [facility] 11-20-2022 03:03-0400 Body height 165.1 cm Jose Aden MD Work Phone: [facility] 11-20-2022 03:02-0400 Body temperature 98.29 [degF] Jose Aden MD Work Phone: [facility] 11-03-2022 09:52-0400 Body mass index (BMI) [Ratio] 33.28 kg/m2 Ninfa Long DO Work Phone: [facility] 11-03-2022 09:52-0400 Body temperature 98.2 [degF] Ninfa Long DO Work Phone: [facility] 11-03-2022 09:52-0400 Body weight 90.72 kg Ninfa Long DO Work Phone: [facility] 11-03-2022 09:52-0400 Diastolic blood pressure 59 mm[Hg] Ninfa Long DO Work Phone: [facility] [employer] 11-03-2022 09:52-0400 Heart rate 76 /min Ninfa Long DO Work Phone: [facility] [employer] 11-03-2022 09:52-0400 Respiratory rate 16 /min Ninfa Long DO Work Phone: [facility] [employer] 11-03-2022 09:52-0400 SaO2% (BldA) [Mass fraction] 100 % Ninfa Long DO Work Phone: [facility] [employer] 11-03-2022 09:52-0400 Systolic blood pressure 128 mm[Hg] Ninfa Long DO Work Phone: [facility] [employer] 12-26-2021 15:47-0400 Body temperature 98.01 [degF] Marlen Hernandez DO Work Phone: [facility] [employer] 12-26-2021 15:47-0400 Diastolic blood pressure 59 mm[Hg] Marlen Prattg DO Work Phone: [facility] [employer] 12-26-2021 15:47-0400 Heart rate 66 /min Marlen Prattg DO Work Phone: [facility] [employer] 12-26-2021 15:47-0400 Respiratory rate 18 /min Marlen Prattg DO Work Phone: [facility] [employer] 12-26-2021 15:47-0400 SaO2% (BldA) [Mass fraction] 96 % Marlen Prattg DO Work Phone: [facility] [employer] 12-26-2021 15:47-0400 Systolic blood pressure 101 mm[Hg] Marlen Prattg DO Work Phone: [facility] [employer] 12-26-2021 14:00-0400 Body height 165.1 cm Marlen Hernandez DO Work Phone: [facility] [employer] 12-26-2021 14:00-0400 Body mass index (BMI) [Ratio] 34.61 kg/m2 Marlen Hernandez DO Work Phone: [facility] [employer] 12-26-2021 14:00-0400 Body weight 94.35 kg Marlen Hernandez DO Work Phone: [facility] 08-25-2020 17:50-0500 BMI (Body Mass Index) 33.66 kg/m2 [facility] [place] 08-25-2020 17:50-0500 Body Temperature 98.49 [degF] Joseline Lowe[facility] [place] , [place] 08-25-2020 17:50-0500 Body weight 86.18 kg [facility] [place] 08-25-2020 17:50-0500 BP Diastolic 71 mm[Hg] [facility]eline [facility] [place] 08-25-2020 17:50-0500 BP Systolic 106 mm[Hg] [facility] [place] 08-25-2020 17:50-0500 Height 160 cm [facility] [place] 08-25-2020 17:50-0500 Pulse (Heart Rate) 70 /min [facility] [place] 08-25-2020 17:50-0500 Pulse Oximetry 100 % [facility] [place] 08-25-2020 17:50-0500 Respiratory Rate 20 /min Joseline [facility] [place] 05-11-2020 00:15-0400 BP Diastolic 61 mm[Hg] [facility] 05-11-2020 00:15-0400 BP Systolic 105 mm[Hg] [facility] 05-11-2020 00:15-0400 Pulse (Heart Rate) 101 /min [facility] 05-11-2020 00:15-0400 Pulse Oximetry 98 % [facility] 05-11-2020 00:15-0400 Respiratory Rate 20 /min [facility] 05-10-2020 22:43-0400 BMI (Body Mass Index) 28.29 kg/m2 [facility] 05-10-2020 22:43-0400 Body Temperature 97.59 [degF] [facility] 05-10-2020 22:43-0400 Body weight 77.11 kg [facility] 05-10-2020 22:43-0400 Height 165.1 cm [facility] 04-25-2020 19:08-0400 BMI (Body Mass Index) 27.46 kg/m2 [facility] [place] 04-25-2020 19:08-0400 Body Temperature 98.29 [degF] [facility] [place] 04-25-2020 19:08-0400 Body weight 74.84 kg [facility] [place] 04-25-2020 19:08-0400 Height 165.1 cm [facility] [place] 04-25-2020 19:08-0400 Pulse (Heart Rate) 83 /min [facility] [place] 04-25-2020 19:08-0400 Pulse Oximetry 99 % [facility] [place] 04-25-2020 19:08-0400 Respiratory Rate 16 /min [facility] [place] 10-31-2019 08:23-0400 Body Temperature 98.49 [degF] Preeti Garzon [facility] 10-31-2019 08:23-0400 BP Diastolic 79 mm[Hg] Preetiroyer Garzon [facility] 10-31-2019 08:23-0400 BP Systolic 124 mm[Hg] Preeti Garzon [facility] 10-31-2019 08:23-0400 Pulse (Heart Rate) 66 /min Preeti Garzon [facility] 10-31-2019 08:23-0400 Pulse Oximetry 98 % Preeti Garzon [facility] 10-22-2019 19:41-0400 Respiratory Rate 14 /min Preeti Garzon [facility] 10-22-2019 19:34-0400 Body Temperature 98.1 [degF] Preeti Garzon [facility] 10-22-2019 19:34-0400 BP Diastolic 62 mm[Hg] Preeti Garzon [facility] 10-22-2019 19:34-0400 BP Systolic 101 mm[Hg] Preeti Garzon [facility] 10-22-2019 19:34-0400 Pulse (Heart Rate) 75 /min Preeti Garzon [facility] 10-22-2019 19:34-0400 Pulse Oximetry 95 % Preeti Garzon [facility] 10-21-2019 16:00-0400 BMI (Body Mass Index) 27.51 kg/m2 Preeti Garzon [facility] 10-21-2019 16:00-0400 Body weight 75 kg Preeti Garzon [facility] 10-21-2019 16:00-0400 Height 165.1 cm Preeti Garzon [facility] 10-21-2019 13:47-0400 BP Diastolic 72 mm[Hg] Eloy [facility] 10-21-2019 13:47-0400 BP Systolic 110 mm[Hg] mary [facility] 10-21-2019 13:47-0400 Pulse (Heart Rate) 63 /min [facility] 10-21-2019 13:47-0400 Pulse Oximetry 100 % [facility] 10-21-2019 13:47-0400 Respiratory Rate 18 /min mary [facility] 10-21-2019 09:02-0400 BMI (Body Mass Index) 27.46 kg/m2 [facility] 10-21-2019 09:02-0400 Body Temperature 98.29 [degF] mary [facility] 10-21-2019 09:02-0400 Body weight 74.84 kg [facility] 10-21-2019 09:02-0400 Height 165.1 cm [facility] 08-02-2019 22:30-0500 Body Temperature 102.6 [degF] [facility] 08-02-2019 22:30-0500 BP Diastolic 58 mm[Hg] [place] [employer] 08-02-2019 22:30-0500 BP Systolic 102 mm[Hg] [facility] HospitalContour [facility]icon[facility] 08-02-2019 22:30-0500 Pulse (Heart Rate) 105 /min [place] [employer] 08-02-2019 22:30-0500 Pulse Oximetry 100 % [place] [facility] 08-02-2019 22:30-0500 Respiratory Rate 20 /min Carlos [facility] 08-02-2019 20:10-0500 Height 165.[address] [facility] 07-28-2019 19:25-0500 Body Temperature 98.49 [degF] [facility] 07-28-2019 19:25-0500 BP Diastolic 66 mm[Hg] [facility] 07-28-2019 19:25-0500 BP Systolic 111 mm[Hg] [facility] 07-28-2019 19:25-0500 Pulse (Heart Rate) 99 /min [facility] 07-28-2019 19:25-0500 Pulse Oximetry 97 % [facility] 07-28-2019 19:25-0500 Respiratory Rate 16 /min [facility] 07-13-2019 15:55-0500 BMI (Body Mass Index) 29.95 kg/m2 John Melon [facility] [place] 07-13-2019 15:55-0500 Body Temperature 98.29 [degF] [facility] [place] 07-13-2019 15:55-0500 Body weight 81.65 kg John Melon [facility] [place] 07-13-2019 15:55-0500 BP Diastolic 49 mm[Hg] John Melon [facility] [place] 07-13-2019 15:55-0500 BP Systolic 107 mm[Hg] John Melon [facility] [place] 07-13-2019 15:55-0500 Height 165.1 cm [facility] [place] 07-13-2019 15:55-0500 Pulse (Heart Rate) 77 /min John Melon [facility] [place] 07-13-2019 15:55-0500 Pulse Oximetry 98 % John Melon [facility] [place] 07-13-2019 15:55-0500 Respiratory Rate 16 /min John Melon [facility] 05-14-2019 15:19-0400 BMI (Body Mass Index) 27.79 kg/m2 Derianhayley Saulo [facility] 05-14-2019 15:19-0400 Body Temperature 98.29 [degF] Italia Vernon [facility] 05-14-2019 15:19-0400 Body weight 75.75 kg Italia Vernon [facility] 05-14-2019 15:19-0400 BP Diastolic 63 mm[Hg] Italia Vernon [facility] 05-14-2019 15:19-0400 BP Systolic 100 mm[Hg] Italia Vernon [facility] 05-14-2019 15:19-0400 Height 165.1 cm Italia Vernon [facility] 05-14-2019 15:19-0400 Pulse (Heart Rate) 67 /min Italia Vernon [facility] 05-14-2019 15:19-0400 Pulse Oximetry 98 % Italia Vernon [facility] 05-14-2019 15:19-0400 Respiratory Rate 16 /min [facility] [place] Encounters Encounter Date Encounter Type Care Provider Facility Start: 10-14-2024 End: 10-14-2024 ambulatory Vick QUINTEROS Facility:[facility] [place] Start: 10-06-2024 ambulatory Vick QUINTEROS Facility:[facility] [place] Start: 09-19-2024 End: 09-21-2024 [facility] Start: 09-19-2024 End: 09-21-2024 Subsequent hospital visit by physician Nguyen Quinn CNM Work Phone: [facility] Ultrasound Comment on above: Abnormal mammogram o f left breast Start: 08-29-2024 ambulatory NGUYEN HERNANDEZ [facility] Start: 08-07-2024 End: 08-09-2024 ambulatory NGUYEN HERNANDEZ [facility] Start: 08-07-2024 End: 08-09-2024 Subsequent hospital visit by physician Nguyen Hernandez APRN - PARMJIT Work Phone: [facility] Mammography Comment on above: Screening mammogram, encounter for Start: 07-09-2024 End: 07-09-2024 Office outpatient visit 15 minutes Ioana Clinton MD Work Phone: [facility] [place] Comment on above: Graves' orbitopathy - Both Eyes (Primary Dx) Start: 06-17-2024 End: 06-17-2024 ambulatory NGUYEN HERNANDEZ [facility] Start: 06-17-2024 End: 06-17-2024 Subsequent hospital visit by physician Desi Manjarrez MD Work Phone: [facility] Comment on above: Screening for malign ant neoplasm of cervix Start: 04-02-2024 End: 04-02-2024 Office consultation new/estab patient 60 min Ioana Clinton MD Work Phone: [facility] Comment on above: Graves' orbitopathy - Both Eyes (Primary Dx) Start: 04-02-2024 [facility] Start: 02-18-2024 End: 02-18-2024 ambulatory [facility] Start: 02-18-2024 End: 02-18-2024 Subsequent hospital visit by physician Marlen Hernandez DO Work Phone: [facility] Comment on above: Postoperative pain ( Primary Dx); Uterine leiomyoma, unspecified location Start: 01-30-2024 End: 01-30-2024 [facility] Start: 01-22-2024 End: 01-22-2024 Evaluation and management [facility] Start: 01-21-2024 End: 01-22-2024 ambulatory [facility] Start: 01-09-2024 End: 01-09-2024 [facility] Start: 01-09-2024 Encounter for other preprocedural examination [facility] Start: 12-06-2023 End: 12-06-2023 [facility] Start: 11-29-2023 End: 11-29-2023 Emergency department patient visit [facility] Start: 11-29-2023 End: 11-29-2023 Emergency department patient visit Artie Burden MD Work Phone: [facility] Emergency Medicine Start: 11-24-2023 ambulatory [facility] Start: 11-12-2023 End: 11-13-2023 ambulatory Desi Manjarrez MD Facility:[facility] Start: 10-26-2023 ambulatory Carlos Dangelo MD F acility:[facility] Start: 10-24-2023 ambulatory Carlos Dangelo MD F acility:[facility] Start: 09-18-2023 End: 09-18-2023 Subsequent hospital visit by physician Desi Manjarrez MD Work Phone: [facility] Start: 11-20-2022 End: 11-20-[address] [facility] Start: 11-20-2022 End: 11-20-2022 Emergency department patient visit DESI Lupis [facility] Start: 11-20-2022 End: 11-20-2022 Emergency department patient visit Jose Aden MD Work Phone: [facility] Emergency Medicine Start: 11-03-2022 End: 11-03-2022 Emergency department patient visit Ninfa Long DO Work Phone: [facility] ED Comment on above: Vaginal bleeding in (Primary Dx) Start: 10-04-2022 End: 10-04-2022 Subsequent hospital visit by physician Desi Manjarrez MD Work Phone: [facility] Start: 09-28-2022 End: 09-28-2022 Subsequent hospital visit by physician Desi Manjarrez MD Work Phone: [facility] Start: 08-02-2022 End: 08-02-[address] DESI MANJARREZ Facility:[facility] Start: 12-26-2021 End: 12-26-2021 Subsequent hospital visit by physician Marlen Hernandez DO Work Phone: [facility] Start: 07-05-2021 End: 07-05-2021 Subsequent hospital visit by physician Desi Manjarrez MD Work Phone: [facility] Laboratory Comment on above: Menorrhagia with reg ular cycle Start: 08-26-2020 End: 08-26-2020 Subsequent hospital visit by physician Desi DUE[facility] Comment on above: Episode of heavy vag inal bleeding Start: 08-25-2020 End: 08-25-2020 Emergency department patient visit [facility] Start: 08-25-2020 End: 08-25-2020 Emergency department patient visit Joseline Cadet Work Phone: [facility] ED Comment on above: DUB (dysfunctional u terine bleeding) (Primary Dx); Iron deficiency anemia, unspecified iron deficiency anemia type Start: 05-13-2020 End: 05-13-2020 Subsequent hospital visit by physician Desi DUENAS [facility] Comment on above: Screening for cervic al cancer Start: 05-11-2020 End: 05-11-2020 [facility] Start: 05-10-2020 End: 05-11-2020 Emergency department patient visit Robheidi Galvezmons Work Phone: [facility] Emergency Department Comment on above: Allergic reaction to drug, initial encounter (Primary Dx); Acute UTI Start: 04-25-2020 End: 04-25-2020 Emergency department patient visit [facility] Start: 04-25-2020 End: 04-25-2020 Emergency department patient visit Italia Baugh Saulo Work Phone: [facility] ED Comment on above: Flank pain (Primary Dx); History of kidney stones Start: 10-31-2019 End: 10-31-2019 Patient encounter procedure PREETI GARZON [facility] Start: 10-31-2019 End: 10-31-2019 Patient encounter procedure Preeti Garzon Work Phone: [facility] Comment on above: Ureteral stone (Prim carmen Dx) Start: 10-21-2019 End: 10-22-2019 Subsequent hospital visit by physician Preeti Garzon Work Phone: [address] Comment on above: Left ureteral stone (Primary Dx) Start: 10-21-2019 End: 10-22-2019 Patient encounter procedure PREETI PosadaYvan MARTINEZRYANN [facility] Start: 10-21-2019 End: 10-21-2019 Emergency department patient visit ELOY ESCALANTE [facility] Start: 10-21-2019 End: 10-21-2019 Emergency department patient visit Eloy Escalante Work Phone: [facility] Emergency Department Comment on above: Ureteral stone with hydronephrosis (Primary Dx) Start: 08-02-2019 End: 08-02-2019 Emergency department patient visit Carlos Smith Work Phone: [facility] Start: 07-28-2019 End: 07-28-2019 Emergency department patient visit Howard Luis Angel Hunter Work Phone: [facility] Start: 07-13-2019 End: 07-13-2019 Emergency department patient visit John Tucker Work Phone: [facility] ED Comment on above: Vaginal yeast infect ion (Primary Dx) Start: 05-14-2019 End: 05-14-2019 Emergency department patient visit Raulharper Baugh Saulo Work Phone: [facility] ED Comment on above: Acute cystitis with hematuria (Primary Dx); Right flank pain; Kidney stone Start: 09-06-2017 End: 09-06-2017 Emergency department patient visit PROVIDER UNKNOWN Facility:[facility] Procedures Date Procedure Procedure Detail Performing Clinician Start: 09-19-2024 Us breast uni real time with image limited Nguyen Hernandez PLANT FACILITIES TECHNICIAN - [employer]ling[employer]ot Work Phone: Start: 09-19-2024 Diagnostic mammography computer-aided detcj uni Nguyen Hernandez PLANT FACILITIES TECHNICIAN - CNM Work Phone: Start: 08-07-2024 Screening mammography bi 2-view breast inc cad Nguyen Hernandez PLANT FACILITIES TECHNICIAN - CNSlingjot Work Phone: Start: 06-17-2024 Microscopic observation [Identifier] in Cervix by Cyto stain Nguyen Hernandez APRN - CNSlingjot Work Phone: Start: 04-02-2024 Visual field xm [...] Blood count complete auto&auto difrntl wbc Nguyen Hernandez Work Phone: Start: 08-25-2020 Assay of [...] Start: 05-10-2020 CT of entire head Rob PlasenciaYvan GalvezBereniec Work Phone: Start: 05-10-2020 CT of urinary tract Rob Galvezmons Work Phone: Start: 05-10-2020 Choriogonadotropin ( test) [Presence] in Urine [facility] Start: 05-10-2020 Urnls dip stick/tablet rgnt auto w/o microscopy [facility] Start: 05-10-2020 Basic metabolic panel calcium ionized [facility] Start: 05-10-2020 Blood count complete auto&auto difrntl wbc Rob Shelly GalvezBerenice Work Phone: Start: 04-25-2020 Blood count complete auto&auto difrntl wbc DESI MANJARREZ Start: 04-25-2020 Comprehensive metabolic panel DESI HO Y Start: 04-25-2020 Culture bacterial quanttative colony count urine DESI MANJARREZ Start: 04-25-2020 Urinalysis microscopic only DESI MANJARREZ Start: 04-25-2020 Urine test visual color cmprsn meths DESI HOY Start: 04-25-2020 Urnls dip stick/tablet rgnt auto w/o microscopy DESI MANJARREZ Start: 04-25-2020 BASIC METABOLIC PANEL W/ REFLEX TO MG FOR LOW K Raulharper Baugh Saulo Work Phone: Start: 04-25-2020 Blood count complete auto&auto difrntl wbc Italia Baugh Saulo Work Phone: Start: 04-25-2020 Urinalysis microscopic only Italia Baugh Saulo Work Phone: Start: 04-25-2020 Urine test visual color cmprsn meths Italia Baugh Saulo Work Phone: Start: 04-25-2020 Urnls dip stick/tablet rgnt auto w/o microscopy Italia Baugh Saulo Work Phone: Start: 10-31-2019 CYSTOSCOPY Preeti Ardon on Work Phone: Start: 10-22-2019 AUTOPAP Florentino Noble h Work Phone: Start: 10-22-2019 CPAP / BIPAP TITRATE Florentino Coley Work Phone: Start: 10-22-2019 Retrograde pyelogram Preeti contreras Work Phone: Start: 10-22-2019 XR OR FLUOROSCOPY TIME Preeti castillo Work Phone: Start: 10-22-2019 Choriogonadotropin ( test) [Presence] in Urine Preeti Garzon Work Phone: Start: 10-22-2019 Radiography of pqhbun-jnxwwi-qfgvuyl Preeti Garzon Work Phone: Start: 10-21-2019 Urinalysis [...] Work Phone: Start: 08-03-2019 URINALYSIS, MACRO Carlos G Escue Work Phone: Start: 08-03-2019 Assay of lactate Carlos Smith Work Phone: Start: 08-03-2019 CBC, EDIF, PLATELET Carlos Mckeon Escue Work Phone: Start: 08-03-2019 Creatinine blood Carlos Smith Work Phone: Start: 07-29-2019 Choriogonadotropin ( test) [Presence] in Urine Howard Hunter Work Phone: Start: 07-29-2019 Urinalysis microscopic only Howard Plasencia Chuyita ins Work Phone: Start: 07-29-2019 URINALYSIS, MACRO Howard Hunter Work Phone: Start: 07-13-2019 Smr prim src wet mount nfct agt John Tucker Work Phone: Start: 05-14-2019 Ct abdomen & pelvis w/o contrast material Italia Vernon Work Phone: Start: 05-14-2019 Assay of lipase Italia Vernon Work Phone: Start: 05-14-2019 Blood count complete auto&auto difrntl wbc Italia Veronn Work Phone: Start: 05-14-2019 Gonadotropin chorionic qualitative Italia Vernon Work Phone: Start: 05-14-2019 Urinalysis microscopic only Italia Vernon Work Phone: Start: 05-14-2019 Urnls dip stick/tablet rgnt auto w/o microscopy Italia Vernon Work Phone: Start: 01-16-2018 Microscopic observation [Identifier] in Cervix by Cyto stain Preeti Garzon Plan of Treatment Date Care Activity Detail Author Start: 06-17-2029 Screening for malign ant neoplasm of cervix [employer] [facility] Start: 09-18-2028 Lipid panel Lipids [facility] Start: 09-28-2027 Lipid panel Lipids [facility] [employer] [facility] Start: 06-17-2027 Screening for malign ant neoplasm of cervix Pap smear [facility] Start: 09-19-2026 Screening for malign ant neoplasm of breast Breast cancer screen [facility] Start: 08-07-2026 Screening for malign ant neoplasm of breast Breast cancer screen [facility] Start: 05-17-2026 Screening for malign ant neoplasm of cervix [employer] Start: 06-18-2025 End: 06-18-2025 Patient encounter procedure 06/18/2025 1:45 PM EST Office Visit [facility] [address] [place] [address] Nguyen Hernandez APRN - CNLupis [address] [place] [address] yearly [facility] Comment on above: yearly Start: 05-13-2025 Screening for malign ant neoplasm of cervix Cervical cancer screen [place], [place] Start: 01-19-2025 DTaP/Tdap/Td vaccine (2 - Td or Tdap) DTaP/Tdap/Td vaccine (2 - Td or Tdap) [facility] Start: 01-19-2025 Tetanus vaccination [facility] Start: 10-08-2024 Depression Screen Depression Screen [facility] Start: 08-07-2024 End: 08-07-2024 Patient encounter procedure 08/07/2024 4:00 PM EST Appointment [facility] Mammography [address] [place], [place] [id number] Nguyen Hernandez, PLANT FACILITIES TECHNICIAN - CNM [address] [place] [address] EPIC ALPHONSO W OFC ARIA [facility] Mammography Comment on above: EPIC ALPHONSO W OFC ARIA Start: 07-09-2024 End: 07-09-2024 Patient encounter procedure 07/09/2024 9:10 AM EST Office Visit [facility] [place] [address] [place] [address] [address] [place] [address] Ioana Clinton MD [address] [place] [address] [address] [place] [address] [facility] [place] Start: 05-28-2024 End: 05-28-2024 Patient encounter procedure 05/28/2024 10:45 AM EDT Office Visit [facility] Part of [address] [place] [address] Nguyen Hernandez, PLANT FACILITIES TECHNICIAN - CNM [address] [facility] [address] [place], [place] [id number] PAP [facility] Comment on above: PAP Start: 05-17-2024 Screening for malign ant neoplasm of cervix Pap smear [facility] Start: 04-06-2024 COVID-19 Vaccine ( season) COVID-19 Vaccine ( season) [facility] Start: 04-06-2024 COVID-19 VACCINE ( season) COVID-19 VACCINE () [facility] Start: 04-06-2024 Influenza vaccination A [facility] Start: 03-06-2024 Influenza vaccination Flu vaccine (# 1) [facility] Start: 02-27-2024 End: 02-27-2024 Patient encounter procedure 02/27/2024 11:30 AM EDT Office Visit [facility] [address] [place] [address] Delfina Fuller PA-C [address] [place] [address] f/u from myomectomy 10/16 [facility] Comment on above: f/u from myomectomy 10/16 Start: 02-18-2024 End: 02-18-2024 Laps myomectomy exc 1-4 myomas 250 gm/< UTERINE MYOMECTOMY ROBOTIC Uterine leiomyoma, unspecified location 02/18/2024 3:33 PM EDT [facility] [facility] Start: 10-09-2023 End: 10-09-2023 Patient encounter procedure 10/09/2023 4:45 PM EST Office Visit [facility] [address] [place], [place] [id number] Marlen Devi DO [address] [place] [address] med check / SS pt [facility] Comment on above: med check / SS pt Start: 09-28-2023 Hemoglobin A1c measurement A1C test (Diabetic or Prediabetic) [facility] Start: 04-06-2023 COVID-19 VACCINE ( season) COVID-19 VACCINE ( season) [facility] Start: 04-06-2023 Influenza vaccination INFLUENZ A VACCINE (Season Ended) [facility] Start: 03-06-2023 Influenza vaccination Flu vaccine (# 1) [facility] Start: 01-16-2023 Cervical cancer screen Cervical canc er screen [place], [place] Start: 01-16-2023 Screening for malign ant neoplasm of cervix Cervical cancer screen [place] Start: 11-20-2022 End: 11-20-2022 Patient encounter procedure 11/20/2022 Routine Obstetrics and Gynecology Nguyen Hernandez, PLANT FACILITIES TECHNICIAN - CNM [address] [place] [address] [facility] Start: 11-20-2022 End: 11-20-2022 TREATMENT INCOMPLETE W/ D&C TREATMENT INCOMPLETE W/ D&C Missed 11/20/2022 11:15 AM EDT [facility] Start: 11-08-2022 End: 11-08-2022 Patient encounter procedure 11/08/2022 Routine Obstetrics and Gynecology [facility] Start: 10-26-2022 End: 10-26-2022 Professional / ancillary services management 10/26/2022 Ancillary Procedure Obstetrics and Gynecology [facility] Start: 10-26-2022 End: 10-26-2022 ambulatory 10/26/2022 Initial Obstetrics and Gynecology [facility] Start: 04-06-2022 Influenza vaccination Flu vacc ine (Season Ended) [facility] Start: 03-06-2022 Influenza vaccination Flu vaccine (# 1) [facility] Start: 01-17-2022 End: 01-17-2022 Patient encounter procedure 01/17/2022 Office Visit Obstetrics and Gynecology Marlen Devi, DO [address] [place] [address] [facility] Start: 12-26-2021 End: 12-26-2021 Hysteroscopy bx endometrium&/polypc w/wo d&c DILATATION AND CURETTAGE HYSTEROSCOPY MENORRHAGIA, ENDOMETRIAL HYPERPLASIA, FIBROIDS 12/26/2021 3:18 PM EDT [facility] Start: 09-14-2021 Depression Screen Depression Screen [facility] Start: 05-17-2021 End: 05-17-2021 Office Visit 05/17/2021 Office Visit Obstetrics and Gynecology Nguyen Hernandez APRN - CNM [address] [place] [address] [phone] [facility] Start: 04-06-2021 Influenza vaccination Flu vaccine (# 1) [facility] Start: 01-16-2021 Screening for malign ant neoplasm of cervix Pap Smear [facility] Start: 2020 Lipid panel [facility] Start: 2020 Screening for malign ant neoplasm of breast [facility] Start: 08-26-2020 End: 09-02-2021 US PELVIS COMPLETE NON-OB TRANSABDOMINAL AND TRANSVAGINAL US PELVIS COMPLETE NON-OB TRANSABDOMINAL AND TRANSVAGINAL Imaging Routine DUB (dysfunctional uterine bleeding) Expected: 08/26/2020, Expires: 09/02/2021 [facility]- MELINDA POLLOCK Comment on above: Expected: 08/26/2020 , Expires: 09/02/2021 Start: 05-13-2020 End: 05-13-2020 Procedure visit 05/13/2020 Procedure visit Obstetrics and Gynecology Nguyen Hernandez APRN - CNM [address] [place] [id number] [facility] Start: 04-06-2020 Influenza vaccination Flu vaccine (# 1) [place] Start: 04-06-2020 Influenza vaccinatio n given Sequential Influenza Vaccine (#1) [facility] Start: 10-22-2019 End: 10-22-2019 Hospital Encounter [facility] Comment on above: CYSTOSCOPY WITH RETR OGRADE STONE MANIPULATION STENT INSERTION WITH LASER Start: 04-06-2019 Influenza vaccination [place] Start: 04-06-2019 Influenza vaccinatio n given Sequential Influenza Vaccine (#1) [facility] Start: 01-25-2011 Hepatitis B vaccination HEP B VACCINE (2 of 3 - 19+ 3-dose series) [facility] Start: 2001 Screening for malign ant neoplasm of cervix [facility] Start: 11-29-1999 DTaP/Tdap/Td vaccine (1 - Tdap) DTaP/Tdap/Td vaccine (1 - Tdap) [place] Start: 11-29-1999 Hepatitis B vaccine (1 of 3 - 19+ 3-dose series) Hepatitis B vaccine (1 of 3 - 19+ 3-dose series) [facility] Start: 11-29-1999 Third diphtheria, tetanus and acellular pertussis (DTaP) vaccination TDAP (ADULT) [facility] Start: 1998 Hepatitis C antibody , confirmatory test Hepatitis C Screening [facility] Start: 1998 Hepatitis C screening Hepatitis C sc reen [facility] Start: 1998 Tetanus vaccination [facility] Start: 11-29-1995 HIV screen HIV screen [place], [place] Start: 11-29-1995 HIV screening [facility] Start: 1993 HIV screening HIV SCREENING DISCUSSI ON [facility] Start: 1993 Varicella Vaccine (1 of 2 - 13+ 2-dose series) Varicella Vaccine (1 of 2 - 13+ 2-dose series) [facility] Start: 1992 Depression Screen Depression Screen [facility] Start: 11-29-1991 DTaP/Tdap/Td vaccine (1 - Tdap) DTaP/Tdap/Td vaccine (1 - Tdap) [place] Start: 1985 COVID-19 Vaccine (1) COVID-19 Vaccin e (1) [facility] Start: 11-29-1983 History and physical examination, annual for health maintenance Wellness Visit [facility] Start: 1981 Varicella Vaccine (1 of 2 - 2-dose childhood series) Varicella Vaccine (1 of 2 - 2-dose childhood series) [facility] Start: 05-30-1981 COVID-19 Vaccine (#1) COVID-19 Vacci ne (#1) [facility] Start: 1980 Hepatitis B vaccine (1 of 3 - 3-dose series) Hepatitis B vaccine (1 of 3 - 3-dose series) [facility] Start: 1980 Hepatitis C screening [facility] Start: 1980 Screening for malign ant neoplasm of cervix Pap Smear [facility] Start: 1980 Tetanus vaccination Tetanus: Every 1 0yrs [facility] Start: 1980 Thyroid stimulating hormone measurement TSH [facility] End: 05-10-2020 Bacteria identified Aer cx Nom (Unsp spec) Urine Aerobic Culture Microbiology Routine Once for 1 Occurrences starting 05/10/2020 until 05/10/2020 [facility] Comment on above: Once for 1 Occurrenc es starting 05/10/2020 until 05/10/2020 End: 05-14-2019 Bacteria identified Cx Nom (U) Urine Culture Microbiology Routine Once for 1 Occurrences starting 05/14/2019 until 05/14/2019 [place] Comment on above: Once for 1 Occurrenc es starting 05/14/2019 until 05/14/2019 Bacteria identified Cx Nom (U) [place] End: 08-25-2020 C.trachomatis N.gonorrhoeae DNA C.trachomatis N.gonorrhoeae DNA Microbiology Routine One Time for 1 Occurrences starting 08/25/2020 until 08/25/2020 [place] Comment on above: One Time for 1 Occur rences starting 08/25/2020 until 08/25/2020 C.trachomatis N.gonorrhoeae DNA C.trachomatis N.gonorrhoeae DNA Microbiology Stat [employer] Label print 08/25/2020 6:00 PM EST [place] End: 05-13-2020 C.trachomatis N.gonorrhoeae DNA, Thin Prep C.trachomatis N.gonorrhoeae DNA, Thin Prep Microbiology Routine Screening for cervical cancer 1 Occurrences starting 05/13/2020 until 05/13/2020 [place] Comment on above: 1 Occurrences starti ng 05/13/2020 until 05/13/2020 C.trachomatis N.gonorrhoeae DNA, Thin Prep C.trachomatis N.gonorrhoeae DNA, Thin Prep Microbiology Routine Screening for cervical cancer 05/13/2020 4:07 PM EDT [place] CT of urinary tract CT [address]ney St one Imaging STAT 10/21/2019 10:51 AM EDT [facility] End: 04-25-2020 Culture, Urine Culture, Urine Microbiology Routine Once for 1 Occurrences starting 04/25/2020 until 04/25/2020 [place] Comment on above: Once for 1 Occurrenc es starting 04/25/2020 until 04/25/2020 End: 05-13-2020 Cytopathology procedure, preparation of smear, genital source [facility] Lab Routine Screening for cervical cancer 1 Occurrences starting 05/13/2020 until 05/13/2020 [place] Comment on above: 1 Occurrences starti ng 05/13/2020 until 05/13/2020 End: 06-17-2024 Cytopathology procedure, preparation of smear, genital source PAP [facility] Lab Routine Screening for malignant neoplasm of cervix 1 Occurrences starting 06/17/2024 until 06/17/2024 [employer] Comment on above: 1 Occurrences starti ng 06/17/2024 until 06/17/2024 End: 09-28-2022 Hemoglobin A1c/Hemoglobin.total in Blood [employer] Work Phone: Comment on above: Once for 1 Occurrenc es starting 09/28/2022 until 09/28/2022 End: 09-18-2023 Hemoglobin A1c/Hemoglobin.total in Blood [employer] Phone: Comment on above: Once for 1 Occurrenc es starting 09/18/2023 until 09/18/2023 End: 12-26-2021 INITIATE PACU OXYGEN THERAPY PROTOCOL Initiate PACU Oxygen Therapy Protocol Respiratory Care Routine Continuous until discontinued starting 12/26/2021 [employer] Work Phone: Comment on above: Continuous until dis continued starting 12/26/2021 End: 02-18-2024 INITIATE PACU OXYGEN THERAPY PROTOCOL Initiate PACU Oxygen Therapy Protocol Respiratory Care Routine Continuous until discontinued starting 02/18/2024 [facility] Comment on above: Continuous until dis continued starting 02/18/2024 Kidney Stone Analysis [facility] Comment on above: Release Upon Orderin g for 1 Occurrences starting 10/22/2019 Mint Green Top Mint Green Top L ab STAT 10/21/2019 9:07 AM EDT [facility] End: 09-28-2022 MISCELLANEOUS TESTING [employer] Phone: Comment on above: Once for 1 Occurrenc es starting 09/28/2022 until 09/28/2022 Oxygen therapy [Mini mum Data Set] Initiate Oxygen Therapy Protocol Respiratory Care Routine As Needed until discontinued starting 12/26/2021 [employer] Phone: Comment on above: As Needed until disc ontinued starting 12/26/2021 Oxygen therapy [Mini mum Data Set] Initiate Oxygen Therapy Protocol Respiratory Care Routine As Needed until discontinued starting 02/18/2024 [facility] Comment on above: As Needed until disc ontinued starting 02/18/2024 End: 10-22-2019 Procedure on tissue specimen Tissue Exam Pathology and Cytology Routine Once for 1 Occurrences starting 10/22/2019 until 10/22/2019, 1 completed [facility] Comment on above: Once for 1 Occurrenc es starting 10/22/2019 until 10/22/2019, 1 completed Procedure on tissue specimen Tissue Exam Pathology and Cytology Routine 10/22/2019 [facility] Embarrass Draw Embarrass Draw Lab STAT 10/21/2019 9:07 AM EDT [facility] End: 07-05-2021 Surgical Pathology Surgical Pathology Lab Routine Menorrhagia with regular cycle 1 Occurrences starting 07/05/2021 until 07/05/2021 [employer] Phone: Comment on above: 1 Occurrences starti ng 07/05/2021 until 07/05/2021 Surgical Pathology Surgical Path ology Lab Routine Release Upon Ordering for 1 Occurrences starting 12/26/2021 [employer] Phone: Comment on above: Release Upon Orderin g for 1 Occurrences starting 12/26/2021 Surgical Pathology Surgical Path ology Lab Routine Uterine leiomyoma, unspecified location Release Upon Ordering for 1 Occurrences starting 02/18/2024 [facility] Comment on above: Release Upon Orderin g for 1 Occurrences starting 02/18/2024 End: 02-18-2024 SURGICAL PATHOLOGY REPORT SURGICAL PATHOLOGY REPORT Lab Routine Once for 1 Occurrences starting 02/18/2024 until 02/18/2024 [facility] Comment on above: Once for 1 Occurrenc es starting 02/18/2024 until 02/18/2024 End: 10-04-2022 Thyroglobulin [employer] Phone: Comment on above: Once for 1 Occurrenc es starting 10/04/2022 until 10/04/2022 End: 10-04-2022 Thyroid Antibodies [employer] Phone: Comment on above: Once for 1 Occurrenc es starting 10/04/2022 until 10/04/2022 Payers Date Payer Category Payer Unknown [id number] 2018 Unknown [employer] [id number] 2018-Present [id number] 2016 Unknown [id number] 1980 Unknown [id number] 2.16.840.1.898211.3.579.2.9 1980 Unknown [id number] 2.16.840.1.745781.3.579.2.9 1980 Unknown [id number] 2.16.840.1.532354.3.579.2.9 1980 Unknown [id number] 2.16.840.1.099539.3.579.2.9 00 1980 Unknown [id number] 2.16.840.1.938350.3.579.2.9 02 1980 Unknown [id number] 2.16.840.1.820788.3.579.2.1 74 1980 Unknown [id number] 2.16840.1.619781.3.579.2.1 74 1980 Unknown [id number] 2.16.840.1.087804.3.579.2.5 93 1980 Unknown [id number] 2.16.840.1.090145.3.579.2.9 83 1980 Unknown [id number] 2.16840.1.391282.3.579.2.9 83 1980 Unknown [id number] 2.840.1.598969.3.579.2.9 83 1980 Unknown [id number] 2.16840.1.237221.3.579.2.1 96 1980 Unknown [id number] 2.840.1.748431.3.579.2.1 286 1980 Unknown [id number] 2.840.1.486761.3.579.2.9 83 1980 Unknown [id number] 2.840.1.799458.3.579.2.1 286 1980 Unknown [id number] 2.16840.1.979038.3.579.2.1 286 1980 Unknown [id number] 2.16840.1.433356.3.579.2.1 286 1980 Unknown [id number] 2.16840.1.154988.3.579.2.1 286 1980 Unknown [id number] 2.16840.1.569916.3.579.2.1 286 1980 Unknown [id number] 2.16840.1.172181.3.579.2.1 286 1980 Unknown [id number] 2.16.840.1.337590.3.579.2.5 94 1980 Unknown [id number] 2.16.840.1.362247.3.579.2.1 73 1980 Unknown [id number] 2.16.840.1.651708.3.579.2.1 73 1980 Unknown [id number] 2.16.840.1.994192.3.579.2.1 73 1980 Unknown [id number] 2.16.840.1.055527.3.579.2.1 73 1980 Unknown [id number] 2.16.840.1.477333.3.579.2.1 73 1980 Unknown [id number] 2.16.840.1.175139.3.579.2.1 73 1980 Unknown [id number] 2.16.840.1.479299.3.579.2.7 27 1959 Unknown [id number] Worker's Compensation [id number] Social History Date Type Detail Facility Start: 05-14-2019 End: 10-24-2022 Tobacco smoking status GAIS Never smoker [facility] [email or web address] Start: 05-14-2019 End: 02-18-2024 Alcohol intake No [facility] Start: 1980 Sex Assigned At Not on file [place] Start: 07-13-2019 Alcohol intake Current non-drinker of alcohol (finding) [place] Start: 07-28-2019 Tobacco smoking status GAIS Unknown if ever smoked [facility] [employer] Start: 10-21-2019 End: 08-07-2024 Alcohol intake Current drinker of alcohol (finding) [facility] Start: 10-21-2019 Alcohol Comment occasssionally [facility] Start: 04-25-2020 End: 10-24-2022 Tobacco use and exposure Never used [facility] [email or web address]- [place] Start: 07-15-2019 Alcohol Comment occ [place] Start: 12-16-2021 End: 11-03-2022 Exposure to SARS-CoV-2 (event) Not sure [facility] Start: 11-03-2022 End: 02-18-2024 Alcohol intake Ex-drinker (finding) [facility] [employer] Work Phone: Start: 09-14-2022 [employer] Work Phone: Start: 11-20-2022 End: 07-09-2024 Alcohol intake Lifetime non-drinker (finding) [facility] Start: 07-10-2023 End: 02-18-2024 History of Social function [facility] Patient Health Questionnaire 9 item (PHQ-9) total score [Reported] 0 [facility] How hard is it for y ou to pay for the very basics like food, housing, medical care, and heating Very hard [employer] (I/We) worried whedana er (my/our) food would run out before (I/we) got money to buy more. Sometimes true [employer] At any time in the p ast 12 months, were you homeless or living in long term [including now]? No [employer] Start: 06-17-2024 Alcohol Comment rarely [employer] Medical Equipment Procedure Code Equipment Code Equipment Origin al Text Equipment Identifier Dates Stent 6fr X 22-3 0cm Contour Armida Length - [id number] [facility] Start: 10-22-2019 Clinical Notes 12-26-2021 to 10-14-2024 Padma Martin - 07/09/2024 9:10 AM Olu Clinton MD - 07/09/2024 9:10 AM Maite Mitchell - 04/02/2024 9:20 AM Sawyer Clinton MD - 04/02/2024 9:20 AM EDTDischarge Instructions Note Date & Type Note Facility 10-14-2024 Note General Surgery Offi ce/Clinic Note Chief Complaint consultation for positive occult stool and anemia HPI Staff 43 year old female presents on consultation from Dr. Manjarrez for positive occult stool and anemia. Labs completed 10/03 with H/H 10.4 and 32.7. Denies dizziness, lightheadedness, SOB or fatigue. Denies abdominal or rectal pain. No rectal bleeding or change in bowel habits. Denies nausea or vomiting. No unexplained weight loss. Never had previous EGD or colonoscopy. No known family history of colon cancer. History of Present Illness 43 yo female with h/o hypothyroidism, anxiety, depression, nephrolithiasis, referred for iron deficiency anemia; Patient does report fatigue, denies change in bms or blood in stools, does have 5 year h/o irregular bms, alternating diarrhea and constipation, attributed to IBS; no h/o ulcer disease, some intermittent GERD, controlled with TUMs; no dysphagia or early satiety, no wt loss; only abd operation Ls excision of uterine fibroid; no previous endoscopy; no asa or NSAID use; no tobacco use; no Fmhx of GI malignancy or IBD. Review of Systems PHQ Score Initial Depression Screen Score: 0 SCORE ROS - Provider Constitutional: no fever, no sweats, no weight loss. Eyes: no glasses, no blurred vision, no visual loss. ENMT: no dentures, no hoarseness, no swallowing difficulties, no hearing loss, no ear infection(s), no nose bleeds. Cardiovascular: normal blood pressure, no chest pain, regular heartbeat, no heart murmur. Respiratory: no shortness of breath, no cough, no asthma, no wheezing. Gastrointestinal: no nausea, no vomiting, no diarrhea, no constipation, no blood in stool, no change in bowel habits, no abdominal pain, no hepatitis. Genitourinary: no kidney stones, no urine infection, no dysuria. Musculoskeletal: no pain, no weakness. Skin: no changing moles, no rash, no skin lumps. Neurologic: no seizures, no epilepsy, no headache. Psychiatric: no emotional or psychiatric problem. Heme/Lymph: no bleeding problems, no anemia, no blood clots, no transfusions. Allergy/Immunologic: no swollen lymph nodes/glands, no IV drug abuse. Other: Additional ROS info: Except as noted in the above Review of Systems and in the History of Present Illness, all other systems have been reviewed and are negative or noncontributory. Physical Exam Vitals & Measurements HR: 72(Peripheral) RR: 16 BP: 118/72 HT: 65 in HT: 165 cm WT: 99.0 kg WT: 218.257 lb BMI: 36.36 HEENT: normal conjunctiva, sclera clear, no scleral icterus, EOM intact, PERRLA, oral mucosa moist without lesions. Neck: trachea midline, no mass, symmetric, no thyromegaly or nodules, no adenopathy Respiratory: lungs CTA, respirations non labored. Cardiovascular: regular rate and rhythm, no murmur, no pedal edema or varicosities. Gastrointestinal: obese, soft, non distended, no tenderness, no masses, no palpable hernias, diastasis recti no, no hepatosplenomegaly; normal bs Lymphatic: no cervical adenopathy, no supraclavicular adenopathy. Musculoskeletal: normal gait, digits and nails without infection, nodes, cyanosis, clubbing. Skin: no rashes, no lesions, no ulcers, no subcutaneous nodules, induration. Psychiatric/Neuro: oriented to time, place, person, judgement normal, affect appropriate for age, insight intact, no focal deficits. Tests: labs reviewed review of old records completed , Discussed surgical options, risks, and possible complications with patient. Assessment/Plan 1. Positive fecal occult blood test (R19.5: Other fecal abnormalities) plan EGD and colonoscopy under anesthesia, informed consent obtained. 2. Iron deficiency anemia (D50.9: Iron deficiency anemia, unspecified) see # 1 Follow-up No qualifying data available Problem List/Past Medical History Ongoing Anemia Anxiety BMI 36.0-36.9,adult Depression History of nephrolithiasis Hypothyroidism Iron deficiency anemia Migraines Obesity due to excess calories Positive fecal occult blood test Vitamin D deficiency Historical No qualifying data Procedure/Surgical History Dilation and curettage, Dilation and curettage, Laparoscopic excision of uterine fibroid, Thyroidectomy. Medications ferrous sulfate 325 mg Tab, 325 mg= 1 tab(s), Oral, BID levothyroxine 150 mcg (0.15 mg) Tab, 150 mcg= 1 tab(s), Oral, Daily Lexapro 10 mg Tab, 10 mg= 1 tab(s), Oral, Daily Allergies cefTRIAXone (Hives) sulfa drugs (Hives) Social History Alcohol - Denies Alcohol Use, 12/17/2018 Never., 10/13/2024 Substance Abuse - Denies Substance Abuse, 12/17/2018 Never., 10/13/2024 Tobacco Never (less than 100 in lifetime) Tobacco Use:. Never Smokeless Tobacco Use:., 10/14/2024 Family History Primary malignant neoplasm of brain: Mother and Grandparent. Primary malignant neoplasm of lung: Mother and Grandparent. [facility] Comment on above: Result Comment: Elec tronically Signed By: NELI CASTREJON, Vick Rios\Date and Time Signed: 10/14/24 13:51 EDT 07-09-2024 History of Presen t illness Narrative [...] sure (doesn't notice) Has an appt with community service director is Caryn Apodaca MD. Next month Eye [...] sure (doesn't notice) Has an appt with community service director is Caryn Apodaca MD. Next month Eye [...] or increased proptosis. documented in this encounter [facility] 04-02-2024 History of Presen t illness Narrative REASON FOR VISIT Kallie Keyes presents to clinic today for a New Patient visit. Chief Complaint New Patient HISTORY OF PRESENT ILLNESS HPI 43 y.o. female presents today for thyroid eye disease, referred by Betzaida Sierra MD. Patient was diagnosed with Grave Disease November 2023. Patient is currently taking Levothyroxine. Patients current community service director is Caryn Apodaca MD. Hx of NEVES/thyroidectomy? [...] Patient is currently taking Levothyroxine. Patients current community service director is Caryn Apodaca MD. Hx of NEVES/thyroidectomy? [...] Round Slow Left PERRL Round Slow Visual Jo (Counting fingers) Left Right Full Full Extraocular [...] increased proptosis. documented in this encounter [facility] 02-18-2024 History of Presen t illness Narrative [...] PAT phone call. documented in this encounter [facility] 02-18-2024 Hospital Discharg e instructions Gege Lim [...] Escobar in [address] Nava -- [place] office [phone] [place] office [phone] documented in this encounter [facility] 11-29-2023 Hospital Discharg e instructions Artie Burden [...] cannot be sent through Care Everywhere.Back Spasm ([place])documented in this encounter [facility] 11-20-2022 Emergency department Note Pt transported to per cart with products of conception [facility] 11-20-2022 Emergency department Note Pt transported to [...] by Dr. Aden. Patient has transitioned to co at 8 AM, patient is just waiting [...] Portions of this chart were created using [employer] electronic dictation. Please excuse any typographical or grammatical errors contained herein. Pritesh Lundberg DO 11/20/22 0911 Report called to Betzaida VELÁSQUEZ . Pt will go up to OB dept before surgery at 11am. Pt and visitor determined to have decided to have fetus sent to home, release of body form is completed as well as written statement of early loss form Per Trice [facility] pt to go to room 201 on [...] for tylenol placed. documented in this encounter [facility] 11-20-2022 Physician Emergency department Note Continuation of [...] by Dr. Aden. Patient has transitioned to co at 8 AM, patient is just waiting [...] Portions of this chart were created using Lottay electronic dictation. Please excuse any typographical or grammatical errors contained herein. Pritesh Lundberg DO 11/20/22 0911 [employer] Work Phone: 11-20-2022 Hospital Discharg e instructions Pritesh Lundberg DO - 11/20/2022 9:08 AM EDT You are going to OB to see Dr Kirk for further evaluation. The following attachments cannot be sent through Care Everywhere.D and C: Pre-op ([place])Miscarriage: Early Loss ([facility]) ([place])documented in this encounter [facility] 11-20-2022 Emergency department Note Report called to Betzaida VELÁSQUEZ . Pt will go up to OB dept before surgery at 11am. Pt and visitor determined to have decided to have fetus sent to home, release of body form is completed as well as written statement of early loss form [facility] 11-20-2022 Emergency department Note Per Trice [facility] pt to go to room 201 on OB [facility] 11-20-2022 Emergency department Note Pt resting on cart, denies needs at this time. She continues to be tearful so emotional support provided. Pt has not yet determined what she would like done with products of conception . Call light is in reach [facility] 11-20-2022 Emergency department Note Emotional support given to pt. She denies current needs at this time. Pt is updated on plan of care and is aware she is awaiting results of US , call light is in reach [facility] 11-20-2022 Emergency department Note US bedside with patient [facility] 11-20-2022 Emergency department Note Foot prints and announcement filled out for mother. Report given to DIDIER Winters. Ultrasound at bedside. [facility] 11-20-2022 Emergency department Note This nurse in [...] for keepsake box. Patient remains with fetus. [facility] 11-20-2022 Emergency department Note Patient presses call light and states I bled through my pad . This nurse assists patient in changing pad. Previous pad is saturated in bright red blood and one large clot. Patient cleaned up with wet wash cloths and new mesh underwear provided. Patient placed back in bed and denies further needs at this time. [facility] 11-20-2022 Emergency department Note Heat pack provided for pt report of return of cramping pain. VO for tylenol placed. [facility] 11-03-2022 Hospital Discharg e supriya Long DO - 11/03/2022 12:21 PM EDT [...] us to take care of you at [facility]. In the next few days you may receive a survey by mail or e-mail asking about the care you received during this visit. Please complete this if you are able, as this feedback helps us provide the best care possible. The following attachments cannot be sent through Care Everywhere.: Vaginal Bleeding ([place])documented in this encounter [employer] Phone: 12-26-2021 History of Presen t illness [...] prior to surgery. documented in this encounter [employer] Phone: 12-26-2021 Hospital Discharg e instructions Kassandra [...] within an hour). Call the office at [phone] ([place]) [phone] ([place]) for an appointment in 2 weeks. documented in this encounter [facility] [employer] Phone: Evaluation note Diagnosis Menorrhagia with regular cycle Excessive or frequent menstruation documented in this encounter [employer] Phone: evaluation note* Diagnosis Vaginal bleeding in - Primary Unspecified antepartum hemorrhage, unspecified as to episode of care documented in this encounter [employer] Phone: evaluation note* Diagnosis Incomplete miscarriage- Primary Incomplete spontaneous without mention of complication [facility] Diagnosis Muscle spasm of back- Primary Other symptoms referable to back [facility] Diagnosis Postoperative pain- Primary Other acute postoperative pain Uterine leiomyoma, unspecified location Menorrhagia with regular cycle Excessive or frequent menstruation Dysmenorrhea documented in this encounter [facility]* Diagnosis Graves' orbitopathy - Both Eyes- Primary Toxic diffuse goiter without mention of thyrotoxic crisis or storm [facility] Diagnosis Screening for malignant neoplasm of cervix Screening for malignant neoplasm of the cervix documented in this encounter [facility]* Diagnosis Graves' orbitopathy - Both Eyes- Primary Toxic diffuse goiter without mention of thyrotoxic crisis or storm documented in this [facility]* Diagnosis Screening mammogram, encounter for documented in this encounter [facility]* Diagnosis Abnormal mammogram of left breast documented in this encounter [facility] Narrative* Auth/Cert Specialty Diagnoses / Procedures Referred By Starla juarez Referred To Contact Diagnoses Menorrhagia Endometrial hyperplasia Fibroids MENORRHAGIA, ENDOMETRIAL HYPERPLASIA, FIBROIDS Procedures [place] HYSTEROSCOPY,W/ENDO BX DILATATION AND CURETTAGE HYSTEROSCOPY Marlen Devi DO [address] [place] [address] [address] [place] [address] Referral ID Status Reason Start Date Expiration Date Visits Re quested Visits Authorized [employer] Phone: Summary Purpose Family History No Family [...] FoundNo Family History Records Found Advance Directives No Advanced Directives Records FoundDocuments on File Type Date Recorded Patient Cloth Examiner Expl anation Advance Directives and Living Will Power of Commercial Real Estate Associate Documents on File Type Date Recorded Patient Cloth Examiner Expl anation Advance Directives and Livin g Will 10/21/2019 9:48 AM Latest Code Status on File Code Status Date Activated Date Inactivated Comments Full Code 10/21/2019 4:40 PM Documents on File Type Date Recorded Patient Cloth Examiner Expl anation Advance Directives and Livin g Will 10/21/2019 9:48 AM Latest Code Status on File Code Status Date Activated Date Inactivated Comments Full Code 10/21/2019 4:40 PM 10/22/2019 10:19 PM Latest Code Status on File Code Status Date Activated Date Inactivated Comments Full Code 10/21/2019 4:40 PM 10/22/2019 10:19 PM Documents on File Type Date Recorded Patient Cloth Examiner Expl anation ACP-Advance Directive ACP-Power of Commercial Real Estate Associate Documents on File Type Date Recorded Patient Cloth Examiner Expl anation Advance Directives and Livin g Will 05/10/2020 11:39 PM Documents on File Type Date Recorded Patient Cloth Examiner Expl anation ACP-Advance Directive ACP-Power of Commercial Real Estate Associate Latest Code Status on File Code Status [...] Everywhere. * UTI (Urinary Tract Infection): Female ([place]) * Kidney Stone ([place]) documented in this encounter* Attachments The following attachments cannot be sent through Care Everywhere. * Vaginal Yeast Infection ([place]) documented in this encounter* Attachments The following attachments cannot be sent through Care Everywhere. * Urinary Tract: Female: Anatomy Sketch ([place]) documented in this encounter* Attachments The following attachments cannot be sent through Care Everywhere. * Kidney Stone ([place]) documented in this encounter* Instructions* Saniya Bee, DANN - 10/22/2019 Laser Lithotripsy: What to Expect [...] Log into your personal health record on [email or web address] and enter Q239 in the Education box to learn more about Laser Lithotripsy: What to Expect at Home. Current as of: March 16, 2019 Content Version: 12.3 9254-9738 [employer]. Care instructions adapted under license by your healthcare professional. If you have questions about a medical condition or this instruction, always ask your healthcare professional. [employer] disclaims any warranty or liability for your [...] your doctor if you can take an bhlc-hyc-kfjgqzn pain medicine, such as acetaminophen (Tylenol),ibuprofen (Advil, [...] Log into your personal health record on [email or web address] and enter P672 in the Education box to learn more about Ureteroscopy: What to Expect at Home. Current as of: June 25, 2015 Content Version: [phone] [employer]. Care instructions adapted under license by your healthcare professional. If you have questions about a medical condition or this instruction, always ask your healthcare professional. [employer] disclaims any warranty or liability for your [...] your doctor if you can take an ekdt-lno-ksezqqw medicine. If you think your pain medicine [...] Log into your personal health record on [email or web address] and enter B869 in the Education box to learn more about Ureteral Stent Placement: What to Expect at Home. Current as of: June 25, 2015 Content Version: [phone] [employer]. Care instructions adapted under license by your healthcare professional. If you have questions about a medical condition or this instruction, always ask your healthcare professional. [employer] disclaims any warranty or liability for your use of this information. documented in this encounter* Attachments The following attachments cannot be sent through Care Everywhere. * Flank Pain ([place]) documented in this encounter* Instructions* Rob Ng, [...] Everywhere. * UTI (Urinary Tract Infection): Female ([place]) * Allergic Reaction ([place]) * Headache ([place]) documented in this encounter* Attachments The following attachments cannot be sent through Care Everywhere. * Anemia: Iron Deficiency ([place]) * Vaginal Bleeding ([place]) documented in this encounter Assessments Diagnosis Acute [...] Urology Diagnoses Kidney stone Carlos Smith MD [address] [place] [address] Pedro Pablo Degroot MD [address] [address] Status Reason Specialty Diagnoses / Procedures Re ferred By Contact Referred To Contact Open Radiology Diagnoses DUB (dysfunctional uterine bleeding) Procedures US PELVIS COMPLETE NON-OB TRANSABDOMINAL AND TRANSVAGINAL Joseline Cadet MD [address] [place] [id number] Specialty Diagnoses / Procedures Referred By Contac t Referred To Contact Procedures US OB TRANSVAGINAL/CERVICAL LENGTH Jose Aden MD [address] [place] [address] Referral ID Status Reason Start Date Expiration Date Visits Re quested Visits Authorized [id number] Closed 11/20/2022 12/15/2023 1 1 Specialty Diagnoses / Procedures Referred By Contac t Referred To Contact Radiology Diagnoses Screening mammogram, encounter for Procedures LUCY AIDA DIGITAL SCREEN BILATERAL Nguyen Hernandez, PLANT FACILITIES TECHNICIAN - CNM [address] [place] [address] Referral ID Status Reason Start Date Expiration Date Visits Re quested Visits Authorized [id number] Closed 06/17/2024 06/17/2025 1 1 Hospital Course * Preeti Garzon MD - 10/22/2019 4:53 PM EDT DISCHARGE SUMMARY Patient: Kallie Keyes Date of : 1980 Site: [facility] Family Provider: Desi Manjarrez MD Admit Date: 10/21/2019 Discharge Date/Time: 10/22/19 Evening Disposition: Home Clinical Summary Hospital Course: Kallie Keyes is a 38 y.o. female patient of Desi Manjarrez MD with a history of kidney stones. Transferred from [place] with 7 mm left UPJ stone with [...] Physician(s) Family Provider: Desi Manjarrez MD, Address: [address] [place] [address] / [facility] [address] Follow Up: Preeti Garzon MD [address] [address] Follow up Please contact the office to [...] section and content) DATE CREATED AUTHOR 01/28/2018 [facility] DATE CREATED AUTHOR AUTHOR'S ORGANIZ ATION 08/02/2019 [facility] DATE CREATED AUTHOR AUTHOR'S ORGANIZ ATION 10/31/2019 [facility] DATE CREATED AUTHOR AUTHOR'S ORGANIZ ATION 10/31/2019 [facility] DATE CREATED AUTHOR AUTHOR'S ORGANIZ ATION 10/31/2019 [facility] DATE CREATED AUTHOR AUTHOR'S ORGANIZ ATION 05/16/2020 [facility] DATE CREATED AUTHOR AUTHOR'S ORGANIZ ATION 08/28/2020 [facility] DATE CREATED AUTHOR AUTHOR'S ORGANIZ ATION 08/04/2022 [facility] DATE CREATED AUTHOR AUTHOR'S ORGANIZ ATION 11/23/2022 [facility] DATE CREATED AUTHOR AUTHOR'S ORGANIZ ATION 10/26/2023 [facility] DATE CREATED AUTHOR AUTHOR'S ORGANIZ ATION 11/15/2023 [facility] DATE CREATED AUTHOR AUTHOR'S ORGANIZ ATION 11/25/2023 [facility] DATE CREATED AUTHOR AUTHOR'S ORGANIZ ATION 12/06/2023 [facility] DATE CREATED AUTHOR AUTHOR'S ORGANIZ ATION 02/01/2024 [facility] DATE CREATED AUTHOR AUTHOR'S ORGANIZ ATION 04/10/2024 [facility] DATE CREATED AUTHOR AUTHOR'S ORGANIZ ATION 09/22/2024 [facility] DATE CREATED AUTHOR AUTHOR'S ORGANIZ ATION 10/15/2024 [facility] Reason for Visit (unrecogniz ed section and content) Reason Comments Flank Pain x2 days - right side and sometimes left side Reason Comments Vaginal Discharge started Sunday and i s white in color and [...] Referred By Starla t Referred To Contact Diagnoses Uterine leiomyoma, unspecified location Uterine leiomyoma, unspecified location [D25.9] Procedures KY LAPS MYOMECTOMY EXC 1-4 MYOMAS 250 GM/< UTERINE MYOMECTOMY ROBOTIC- LAPAROSCOPIC Marlen Devi, DO [address] [place] [address] [facility] [address] [place] [address] Referral ID Status Reason Start Date Expiration Date Visits Re quested Visits Authorized [id number] 1 1 Reason Comments New Patient Specialty Diagnoses / Procedures Referred By Staral juarez Referred To Contact Ophthalmology Diagnoses Graves disease Thyroid eye disease Betzaida Sierra MD [address] [address] [place] [address] Ioana Clinton MD [address] [facility] [address] [place] [address] Referral ID Status Reason Start Date Expiration Date V isits Requested Visits Authorized [id number] Pending Review 02/04/2024 02/28/2025 1 1 Specialty Diagnoses / Procedures Referred By Starla t Referred To Contact Radiology Diagnoses Screening mammogram, encounter for Procedures LUCY AIDA DIGITAL SCREEN BILATERAL Nguyen Hernandez, PLANT FACILITIES TECHNICIAN - CNM [address] [place] [address] Referral ID Status Reason Start Date Expiration Date Visits Re quested Visits Authorized [id number] Closed 06/17/2024 06/17/2025 1 1 Specialty Diagnoses / Procedures Referred By Contac t Referred To Contact Radiology Diagnoses Abnormal mammogram of left breast Procedures US BREAST LIMITED LEFT US BREASt COMPLETE LEFT Nguyen Hernandez APRN - CNM [address] [place] [address] Referral ID Status Reason Start Date Expiration Date Visits Re quested Visits Authorized [id number] Open 08/11/2024 08/11/2025 1 1 Specialty Diagnoses / Procedures Referred By Contac t Referred To Contact Radiology Diagnoses Abnormal mammogram of left breast Procedures LUCY AIDA DIGITAL DIAGNOSTIC UNILATERAL LEFT LUCY DIGITAL DIAGNOSTIC W OR WO CAD LEFT Nguyen Hernandez APRN - CNM [address] [place] [address] Referral ID Status Reason Start Date Expiration Date Visits Re quested Visits Authorized [id number] Closed 08/11/2024 08/11/2025 1 1 Jessica Ramirez RN - 10/21/2019 1:39 PM Jessica Baxter RN - 10/21/2019 1:27 PM Jessica Baxter RN - 10/21/2019 12:56 PM EDTPSophia li RN - 10/21/2019 9:43 AM EDT ED Notes (unrecognized secti on and content) Notified transfer center that [facility] eta 10 minutes, cancel [facility] Frannie calls from transfer center, pt assigned to room 327 bed 2 at [place], [facility] eta 2-3 hours. Bre calls from transfer center, pt accepted at [facility] by Dr. Garzon, she will call back with bed assignment and EMS eta Pt aware of needing a urine sample. Cup placed on cart. Pt directed where the bathroom is and aware that is what we will be waiting on to do further testing Dr Janessa maynard for first evaluation of pt. ED PROVIDER NOTE [facility] EM[facility] NAME: Kallie Keyes AGE: 38 y.o. : 1980 VISIT DATE: 10/21/2019 CSN: [id number] PCP: Desi Manjarrez MD Chief Complaint Patient [...] file Gets together: Not on file Attends anglican service: Not on file Active member of [...] Yellow Clarity, Urine Cloudy (A) Clear Specific [place] 1.020 1.005 - 1.025 pH, Urine 8.5 [...] Nonobstructing right renal calculus. IUD in place. [employer] Workstation ID: [id number] Procedures MDM Number of Diagnoses or Management Options Ureteral stone with hydronephrosis: Diagnosis management comments: CT abdomen pelvis showing 6 to 7 mm left ureteral stone with hydronephrosis, based on the stone size, it is not expected to pass by itself, plan to transfer to [facility] [place] with urology service, patient is willing to go anywhere but prefer somewhere closer. Currently symptoms controlled. . . Clinical Impression: 1. Ureteral stone with hydronephrosis ED Disposition ED Disposition Condition Comment Transfer to Another Facility Kallie Keyes to be transferred to [place] or somewhere closer like [facility] Follow-up Information Follow-up information has not been [...] documented in this encounter ED PROVIDER NOTE [facility] EM[facility]GENCY DE[facility] NAME: Kallie Keyes AGE: 39 y.o. : 1980 VISIT DATE: 05/10/2020 CSN: [id number] PCP: Desi Manjarrez MD Chief Complaint Patient [...] WITH LASER; Surgeon: Preeti Garzon MD; Location: [facility] Main OR; Service: Urology History reviewed. No [...] file Gets together: Not on file Attends anglican service: Not on file Active member of [...] 1. Desi Manjarrez MD. Specialty: Family Medicine [address] [id number] Contact information for after-discharge care Follow-up information has not been specified. New Prescriptions nitrofurantoin, macrocrystal-monohydrate, (MACROBID) 100 MG capsule Take 1 (one) capsule (100 mg total) by mouth 2 (two) times a day for 7 days . Rob Ng DO 05/11/20 0018 PT was seen at [facility] two days ago and was dx [facility] UTI being treated with Bactrim. took med at approx 2000 this pm and had onset of headache, not feeling well, States feet felt itchy. Dr. Berenice maynard. Pt vomiting. documented in this encounter Preeti Garzon MD - 10/22/2019 1:12 PM EDTPreeti Garzon MD - 10/21/2019 4:27 PM EDT H&P Notes (unrecognized sect ion and content) INTERVAL HISTORY AND PHYSICAL Patient Name: Kallie Keyes Admit Date: MR #: [id number] : 1980 The H&P has been reviewed and the patient has been examined. I concur with the findings of the H&P. There are no significant changes. It is appropriate to proceed with the planned procedure. Preeti Garzon MD 10/22/2019 1:12 PM HISTORY AND PHYSICAL Patient Name: Kallie Keyes Admit Date: [facility]: [id number] [id number] 1980 Physicians: Desi Manjarrez MD (Family); Eloy Escalante MD (Referring) Chief Complaint/Reason for Visit: Flank pain History of Present Illness: Kallie Keyes is a 38 y.o. female presenting from [facility] with c/o left flank pain. The [...] file Gets together: Not on file Attends anglican service: Not on file Active member of [...] 10/22/2019 Clinician: Preeti Garzon MD OR Staff: Voice Pathologist: Shira Lassiter RN Laser Staff: Lindsey Dillard RN Sheep Killer: Jade Ramesh, TECHNOLOGIST Scrub Person: ST Caroline Anesthesia Staff: Anesthesiologist: Florentino Euceda MD; Lou Lindquist MD CARGO STATION WORKER: Keira Fontenot CRNA Surgeon(s):Surgeon(s) and Role: * Preeti Garzon MD - Primary Patient Name: Kallie Keyes MR #: [id number] PREOPERATIVE DIAGNOSIS Left ureteral stone. Right renal [...] Garcia cystoscopy was performed with a 22 Gabonese rigid cystourethroscope which revealed the bladder as [...] Care Teams (unrecognized sec tion and content) Business Systems Developer Relationship Specialty Start Date End Date Desi Manjarrez MD [address] [id number] PCP - General 05/08/15 Business Systems Developer Relationship Specialty Start Date End Date Desi Manjarrez MD [address] [place] [address] PCP - General 05/08/15 Business Systems Developer Relationship Specialty Start Date End Date Desi Manjarrez MD [address] [place] [address] PCP - General 05/08/15 Business Systems Developer Relationship Specialty Start Date End Date Desi Manjarrez MD [address] [id number] PCP - General 05/08/15 Business Systems Developer Relationship Specialty Start Date End Date Desi Manjarrez MD [address] [place] [address] PCP - General 05/08/15 Business Systems Developer Relationship Specialty Start Date End Date Desi Manjarrez MD [address] [id number] PCP - General Family Medicine 07/28/19 Business Systems Developer Relationship Specialty Start Date End Date Desi Manjarrez MD [address] [id number] PCP - General 05/08/15 Business Systems Developer Relationship Specialty [place] [address] [place], [place] [id number] PCP - General Family Medicine 07/28/19 Business Systems Developer Relationship Specialty Start Date End Date Desi Manjarrez MD [address] [place] [address] PCP - General 05/08/15 Business Systems Developer Relationship Specialty Start Date End Date Desi Manjarrez MD [address] [id number] PCP - General Family Medicine 07/28/19 Business Systems Developer Relationship Specialty Start Date End Date Desi Manjarrez MD [address] [id number] PCP - General 05/08/15 Business Systems Developer Relationship Specialty Start Date End Date Desi Manjarrez MD [address] [id number] PCP - General Family Medicine 07/28/19 Business Systems Developer Relationship Specialty Start Date End Date Desi Manjarrez MD [address] [place] [address] PCP - General 05/08/15 Business Systems Developer Relationship Specialty Start Date End Date Desi Manjarrez MD [address] [place] [address] PCP - General 05/08/15 Ordered Prescriptions (unrec [...] Midline or Central Line = 20 mL/lumen 2100 (Due) sodium chloride flush 0.9 % [...] 1414 (New Bag - Prov ider: Anusha Osman, DIDIER)1640 (Stopped - Provider: Kassandra Field RN) PRN [...] Patricia Mcdowell RN)0541 (Stopped - Provider: Radha Fournier, DIDIER) Continuous Medication Order 11/18/2022 11/19/2022 11/20/2022 Sodium chloride 0.9% IV solution Intravenous, at 125 mL/hr, CONTINUOUS, Starting on Sun11/20/22 at 0330, Until Sun11/20/22 at 0954 0447 ($$New Bag$$ - Provider: Radha Fournier, DIDIER)0830 (Stopped - Provider: Vianey Wells RN) Scheduled [...] 1 dose, On Mely 11/29/23 at 2215 2151 (Given - Provid er: Janessa Breen RN) [...] mg (COMPLETED)(Linked Group 1) 500 mg, IntraVENous, REINSURANCE CLERK TO O.R., 1 dose, On Sun02/18/24 at 1300, Antimicrobial Indications: Surgical Prophylaxis, Administer within 1 hour prior to incision., Pre-op (day of surgery) 1531 (New Bag - Prov ider: Vineet Schreiber RN)1631 (Due: Stopped - Provider: Vineet Schreiber RN) metroNIDAZOLE (FLAGYL) 500 mg in 0.9% NaCl 100 mL IVPB premix (COMPLETED)(Linked Group 1) 500 mg, IntraVENous, at 100 mL/hr, Administer over 60 Minutes, REINSURANCE CLERK TO O.R., On Sun02/18/24 at 1300, For [...] interruptions/ long duration, Starting on Sun02/18/24 at 171, For piggyback infusion, administer at same rate [...] PRN, 2 doses, Starting on Sun02/18/24 at 171, Until Discontinued, Pain Moderate (4-6), For Phase I. If Phase II oral narcotics have been administered in the last 60 minutes, do not administer IV narcotics unless specifically approved by provider., PACU only fentaNYL (SUBLIMAZE) injection 50 mcg 50 mcg, IntraVENous, EVERY 5 MIN PRN, 2 doses, Starting on Sun02/18/24 at 171, Until Discontinued, Pain Severe (7-10), For Phase I. If Phase II oral narcotics have been administered in the last 60 minutes, do not administer IV narcotics unless specifically approved by provider., PACU only metoclopramide (REGLAN) injection 10 mg 10 mg, IntraVENous, ONCE PRN, 1 dose, Starting on Sun02/18/24 at 1719, Until Sun02/19/24 at 171, Nausea, Secondary antiemetic therapy., PACU only naloxone 0.4 mg in 10 mL sodium chloride syringe IntraVENous, PRN, Opioid Reversal, Starting on Sun02/18/24 at 171, PRN if respiratory rate is less than [...] at 100 mL/hr, Administer over 60 Minutes, REINSURANCE CLERK TO O.R., On Sun02/18/24 at 1300, For 1 dose
Administer within 1 hour prior to incision.
Pre-op (day of surgery) And levoFLOXacin (LEVAQUIN) 500 MG/100ML infusion 500 mg (COMPLETED)Jump to med 500 mg, IntraVENous, REINSURANCE CLERK TO O.R., 1 dose, On Sun02/18/24 at [...] BE BASED ON THE PRIMARY CLINICAL RECORDS. [employer] [facility]. provides no warranty or guarantee of the accuracy or completeness of information in this document.
[2024-11-05 06:50] VITALS: BP 149/76; PULSE 86; TEMP 36.3; O2SAT 100; BMI 35.7
[2024-11-05 07:04] LABS: HCG Qualitative NEGATIVE (NEGATIVE); Internal Control Within Normal Limits
[2024-11-05] MEDS: 0.9 % SODIUM CHLORIDE 500 ML 50 ML IV (07:21)
[2024-11-05 07:59] VITALS: BP 92/58; PULSE 69; TEMP 36.9; O2SAT 99
[2024-11-05 08:14] VITALS: BP 107/72; PULSE 62; O2SAT 100
[2024-11-05 08:29] VITALS: BP 106/67; PULSE 56; O2SAT 100
== END 2024-11-05 08:40 | disposition home or self-care (01) ==
PROVIDERS: Anesthesiology; PCP Family Medicine; Visit Provider Surgery
PROC: (CPT 813; principal; 2024-11-05 07:30)
DX: R19.5 Other fecal abnormalities (principal); D50.9 Iron deficiency anemia, unspecified; K44.9 Diaphragmatic hernia without obstruction or gangrene; E03.9 Hypothyroidism, unspecified; F41.9 Anxiety disorder, unspecified; F32.9 Major depressive disorder, single episode, unspecified; Z87.442 Personal history of urinary calculi; G47.33 Obstructive sleep apnea (adult) (pediatric)
CPT/HCPCS: 43235; 45378; 36415; 84703; J2704

== ENCOUNTER 2024-12-17 11:54 | Outpatient (OUT) | payer OTHER, SELFPAY ==
[2024-12-18 05:07] LABS: Antistreptolysin O Ab 215.1 IU/mL (0.0-200.0)
== END 2024-12-17 11:55 | disposition home or self-care (01) ==
LOC: LAB 11:56
PROVIDERS: PCP Family Medicine; Visit Provider Family Medicine
DX: R79.9 Abnormal finding of blood chemistry, unspecified (principal)
CPT/HCPCS: 36415; 86060; 86215

== ENCOUNTER 2025-01-20 09:48 | Outpatient (OUT) | payer OTHER, SELFPAY ==
--- OUTSIDE RECORDS SUMMARY | 2025-01-12 07:52 | XMS_ITS ---
Author Organization [facility] in [place] Address [address] [place] [address] Care Team Providers Care Development Expert Name Role Phone DIMITRI MILLS MD Primary Care Provider [phone] Dimitri Mills Unavailable [phone] REASON FOR VISIT update Medications Medication SIG (Take, Route, Fr equency, Duration) Notes Start Date End Date Status Doxepin HCl 10 MG 1 capsule at twice a day Orally twice a day for 30 days 01/12/2025 Active Encounters Encounter Location Date Provider Diagnosis [facility] [address] [place] [address] 01/12/2025 Dimitri Mills Plan Of Treatment Medication Medication Name Sig Start Date Stop Date Notes Doxepin HCl 10 MG 1 capsule at twice a day Orally twice a day for 30 days 01/12/2025 Next Appt Details Provider Name:Caryn Apodaca , 03/18/2025 02:00:00 PM, [address], [address] [place], [address], Progress Notes * Johanne KEYES ADOB:[birth year] (44 yo F)Acc No.[id number]:01/12/2025 Patient: Dima Johanne SOUSA :1980 A ge:44 Y S ex:Female Address:[address] [place], [address] * Refills Start Doxepin HCl Capsule, 10 MG, Orally, 60 Capsule, 1 capsule at twice a day, twice a day, 30 days, Refills=0 * true * Date: Generated for Kayla pineda/Selam/Yoli on: 0 01/20/2025 09:51 AM EDT
--- OUTSIDE RECORDS SUMMARY | 2025-01-20 05:00 | XMS_ITS ---
Author Organization [facility] in [place] Address [address] [place] [address] Care Team Providers Care Nuclear Power Reactor Operator Name Role Phone DIMITRI MILLS MD Primary Care Provider Dimitri Mills Unavailable [phone] Allergies Allergen (clinical drug ingredient) Drug/Non Drug Allergy documented on EMR Reaction Allergy Type Onset Date Status ceftriaxone Ceftriaxone hives Drug Allergy Act chas Substance with sulfonamide structure and antibacterial mechanism of action (substance) Sulfa Antibiotics hives Drug Allergy Active REASON FOR VISIT rash still ongoing- has been seen multiple times for it- been on going for over a year, has not seen Derm Medications Medication SIG (Take, Route, Frequency, Duration) Notes Start Date End Date Status Ferrous Sulfate 325 (65 Fe) MG 1 tablet Orally twice daily for 90 days takes less due to constipation 10/02/2024 Active Doxepin HCl 10 MG 1 capsule at twice a day Orally twice a day for 30 days 01/12/2025 Active Cetirizine HCl 10 MG 1 tablet Orally Once a day for 30 days 12/17/2024 Active Lexapro 10 MG 1 tablet Orally Once a day Active Levothyroxine Sodium 175 MCG 1 tablet in the morning on an empty stomach Orally Once a day for 90 days Active Triamcinolone Acetonide 0.1 % 1 application Externally bid 01/20/2025 Active Meloxicam 15 MG 1 tablet Orally Once a day for 30 days 01/20/2025 Active Social History Tobacco Use: Social History Observation Description Date Details (start date - stop date) Never Smoker NA - NA Tobacco Use/Smoking Question Answer Notes Patient is a nonsmoker Section Notes: no alcohol. Problems Problem Type SNOMED Code ICD Code Onset Dates Problem Status W/U Status Risk Notes Problem Disorder of sacrum (89452272) Low back derangement syndrome (M53.86) Active confirmed Vital Signs Weight 227.2 lbs 01/20/2025 Height 65 in 01/20/2025 Blood pressure systolic 112 mm Hg 01/21/20 25 Blood pressure diastolic 68 mm Hg 025 BMI 37.8 kg/m2 01/20/2025 Encounters Encounter Location Date Provider Diagnosis [facility] [address] [place] [address] 01/20/2025 Dimitri Hoy Eczema L30.9 and Low back derangement syndrome M53.86 Assessments Encounter Date Diagnosis (ICD Code) Assessment Notes Treatment Notes Treatment Clinical Notes Section Notes 01/20/2025 Eczema (ICD-10 - L30.9) 01/20/2025 Low back derangement syndrome (ICD-10 - M53.86) 01/20/2025 Other Recommended to rest and use a heating pad on the area. Take NSAIDs for pain as needed Plan Of Treatment Medication Medication Name Sig Start Date Stop Date Notes Triamcinolone Acetonide 0.1 % 1 application Externally bid 01/20/2025 Meloxicam 15 MG 1 tablet Orally Once a day for 30 days 01/20/2025 Treatment Notes Assessment Notes Other Recommended to rest and use a heating pad on the area. Take NSAIDs for pain as needed Pending Test Test Name Order Date CBC AUTO DIFF 01/20/2025 FREE T3 01/20/2025 XR LSPINE MIN 4 VIEWS 01/20/2025 Next Appt Details Provider Name:Caryn Apodaca , 03/18/2025 02:00:00 PM, [address], [address] [facility], [place], [address], Progress Notes * Johanne KEYES ADOB:[birth year] (44 yo F)Acc No.[id number]:01/20/2025 UNLOCKED PROGRESS NOTE Progress Note Patient: Dima WHITLEYLOLI Johanne Epifanio Provider: Elijah Mills ([facility]), :1980 A ge:44 Y S ex:Female Date:01/20/2025 Address:[facility] [address], [id number] Pcp:DIMITRI MILLS MD Check In:09:13 AM ESTCheck O ut:09:42 AM EST Subjective: * Chief Complaints: * 1 . Rash still ongoing- has been seen multiple times for it- been on going for over a year. 2. has not seen Derm. * HPI: G eneral: eczema acting up elsa getting low back pain - yoni sieht standing and can go into legs. B ack Pain: The patient complains of -. The symptoms have been present for 1-2 days. The patient believes symptoms are injury related No. The symptoms are mild. Symptomatic treatment has included heating pad, stretching. Associated symptoms include None. * ROS: G eneral/Constitutional: Lightheadedness d enies. C hange in appetite d enies. W eight Change d enies. C ardiovascular: Irregular heartbeat d enies. S welling in hands/feet?denies. R espiratory: Shortness of breath d enies. S hortness of breath with exertion d enies. W heezing d enies. M usculoskeletal: Comments S ee HPI for details. N eurologic: Dizziness d enies. F ainting d enies. H eadache?denies. * Medical History: D epression, Hypothyroidism, Anxiety, Migraine, Tympanic Membrane Perf, Left Ear, Kidney stone, Fracture Right Ankle. * Surgical History: D &C 2021, D&C-12 weeks gestation 11/2022, total thyroidectomy 01/21/24, uterine fibroid removal 02/18/24, EGD and Colonoscopy Dr Dunbar 11/05/2024. * Hospitalization/Major Diagno stic Procedure: v [facility] ER's for last - with 2 units of blood transfused. 2022, TTH thyroid 01/2024. * Family History: F ather: alive, unknown hx. M other: , lung and brain cancer, diagnosed with Other malignant neoplasm of unspecified site. M aternal Grandmother: , lung and brain cancer, diagnosed with Other malignant neoplasm of unspecified site. 1 brother(s) , 6 sister(s) . 3 son(s) , 3 daughter(s) - healthy. . * Social History: T obacco Use: T obacco Use/Smoking P atient is a n onsmoker n o alcohol. * Medications: T aking Cetirizine HCl 10 MG Tablet 1 tablet Orally Once a day , Taking Doxepin HCl 10 MG Capsule 1 capsule at twice a day Orally twice a day , Taking Ferrous Sulfate 325 (65 Fe) MG Tablet 1 tablet Orally twice daily , Notes to Pharmacist: takes less due to constipation, Taking Levothyroxine Sodium 175 MCG Tablet 1 tablet in the morning on an empty stomach Orally Once a day , Taking Lexapro(Escitalopram Oxalate) 10 MG Tablet 1 tablet Orally Once a day , Discontinued predniSONE 20 MG Tablet 3 tablets Orally Once a day , Medication List reviewed and reconciled with the patient * Allergies: S ulfa Antibiotics: hives, Ceftriaxone: hives. Objective: * Vitals: W t:227.2lbs, Ht: 65 in, BP:112/68mm Hg, BMI:37.8Index, Ht-cm: 165.1 cm, Wt-k.06 kg. * Examination: G eneral Examination: GENERAL APPEARANCE: i n no acute distress, well developed, well nourished. LUNGS: clear to auscultation bilaterally. CARDIO: S1, S2 normal, no murmurs, rubs, gallops. MUSCULOSKELETAL: poor rom inback due to pain adn + Bila SLR 3-4/5 strength. EXTREMITIES: no clubbing, cyanosis, or edema. NEUROLOGIC: alert, oriented to time, place, & person.? * Physical Examination: e czema - diffuse = nummular. Assessment: * Assessment: 1. E czema - L30.9 (Primary) 2 . L ow back derangement syndrome - M53.86? Plan: * Treatment: 2. L ow back derangement syndrome I maging: XR LSPINE MIN 4 VIEWS 3. O thers Notes: Recommended to rest and use a heating pad on the area. Take NSAIDs for pain as needed ? * Preventive Medicine: Screenings/Counseling: B [place] ACTION PLAN Above Normal BMI Follow-up D ietary management education, guidance, and counseling * * Electronic signature of Dimitri Mills MD, [phone] on 01/20/2025 at 09:51 AM EDT Sign off status: Pending Visit Status: C HK (Check Out) * Provider: Elijah Mills ([facility])MD Date: 01/20/2025 Generated for Kayla pineda/Selam/Chinyereitting on: 01/20/2025 09:51 AM EDT History and Physical Notes * HPI (History of Present Illness) Category Sub-Category Detail Notes Category Not es General eczema acting up elsa getting low back pain - yoni sieht standing and can go into legs Physical Examination Category Sub-Category Detail Notes Section Note s eczema - diffus e = nummular Examination Category Sub-Category Detail Notes Category Not es General Examination GENERAL APPEARANCE: in no ac lizzie distress, well developed, well nourished CARDIO: S1, S2 normal, no mu rmurs, rubs, gallops LUNGS: clear to auscultatio n bilaterally NEUROLOGIC: alert, oriented to t judie, place, & person EXTREMITIES: no clubbing, cyanosi s, or edema MUSCULOSKELETAL: poor rom inback due to pain adn + Bila SLR 3-4/5 strength
--- OUTSIDE RECORDS SUMMARY | 2025-01-20 09:51 | XMS_ITS | Clinical Summary ---
Author Organization [facility] Address [id number] [place] [address] Care Team Providers Care Retail Cashier Associate Name Role Phone Unavailable Primary Care Provider Unavailabl e Allergies Active Allergy Reactions Criticality Noted Date Comments Ceftriaxone Hives 04/23/2023 Sulfa (Sulfonamide Antibiotics) Hives 04/06 Medications LEXAPRO 10 mg tabletIndicatio ns:anxiety with depression Take 1 tablet (10 mg total) by mouth nightly Indications: anxiousness associated with depression. Active ibuprofen (MOTRIN) 800 mg tablet Take 1 tablet (800 mg total) by mouth every 8 (eight) hours as needed. 3 Active cholecalciferol , vitamin D3, 2,000 units capsule Take 1 capsule (2,000 Units total) by mouth in the morning. 4 Active diclofenac (VOLTAREN) 75 mg EC tablet Take 1 tablet (75 mg total) by mouth once. Active ferrous sulfate 325 (65 FE) mg tablet Take 1 tablet (325 mg total) by mouth daily with breakfast. Active levothyroxine (SYNTHROID, LEVOTHROID) 150 MCG tablet Take 1 tablet (150 mcg total) by mouth in the morning. 90 tablet 4 Active cyclobenzaprine (FLEXERIL) 5 mg tabletIndicatio ns:Acute post-operative pain Take 2 tablets (10 mg total) by mouth 3 (three) times a day as needed for muscle spasms. 30 tablet 4 Active Additional Information Patient not taking.Reported on 04/30/2024 relugolix-estra diol-norethindr (MYFEMBREE) 40-1-0.5 mg tablet Take 40 mg by mouth in the morning. 3 Active Active Problems No known active problems Resolved Problems Problem Noted Date Diagnosed Date Resolved Date Graves disease 05/01/2024 Family History Medical History Relation Name Comments Cancer Mother Anesthesia problems Neg Hx Cataracts Neg Hx Fuchs' dystrophy Neg Hx Glaucoma Neg Hx Macular degeneration Neg Hx Retinal detachment Neg Hx Strabismus Neg Hx Relation Name Status Comments Father Alive Mother Social History Tobacco Use Types Packs/Day Years Used Date Smoking Tobacco: Never Smokeless Tobacco: Never Tobacco Cessation:Counseling Given: Not Answered Alcohol Use Standard Drinks/Week Comments Yes 0 (1 standard drink = 0.6 oz pur e alcohol) rarely [facility] Utilities Answer Date Recorded In the past 12 months has th e electric, gas, oil, or water company threatened to shut off services in your home? No 01/22/2024 PRAPARE - Transportation Answer Date Re corded In the past 12 months, has l ack of transportation kept you from medical appointments or from getting medications? No 01/04 In the past 12 months, has l ack of transportation kept you from meetings, work, or from getting things needed for daily living? No 01/22/2024 Housing Instability Answer Date Recorde d Are you worried or concerned that in the next two months you may not have stable housing that you own, rent or stay in as a part of a household? No 01/22/2024 Childcare Answer Date Recorded Childcare Unknown 01/15/2019 Employment Answer Date Recorded Employment Unknown 01/15/2019 Hunger Screening Answer Date Recorded Within the past 12 months we worried whether our food would run out before we got money to buy more. Never True 04/30/2024 Within the past 12 months th e food we bought just didn't last and we didn't have money to get more. Never True 04/30/2024 Comments No Sex and Gender Information Value Date Recorded Sex Assigned at Female 11/24/2023 1:00 AM EDT Legal Sex Female 10:13 AM EDT Gender Identity Female 11/24/2023 1:00 AM EDT Sexual Orientation Not on file Last Filed Vital Signs Vital Sign Reading Time Taken Comments Blood Pressure 120/75 04/30/2024 1:14 PM EDT Pulse 75 04/30/2024 1:14 PM EDT Temperature 36.6 C (97.9 F) 01/22/2024 11:00 AM EDT Respiratory Rate 19 01/22/2024 11:00 AM EDT Oxygen Saturation 93% 01/22/2024 11:00 AM EDT Inhaled Oxygen Concentration - - Weight 95.3 kg (210 lb) 04/30/2024 1:14 PM EDT Height 165.1 cm (5' 5 ) 04/30/2024 1:14 PM EDT Body Mass Index 34.95 04/30/2024 1:14 PM EDT Plan of Treatment Health Maintenance Due Date Last Done Comments Depression Screening 1992 Adult BMI Follow Up Plan 1998 Pap Smear 05/17/2024 05/17/2021 DTaP,Tdap and Td Vaccines (2 - Td or Tdap) 01/19/2025 01/19/2015 Influenza Vaccine 04/06/2025 Adult BMI Screening 04/30/2025 04/30/2024 Tobacco Screening 05/01/2025 05/01/2024 Medical Devices Not on file Insurance * Guarantor: Johanne Salcido Account Type Relation to Patient Date of Phone Billing Address Personal/Family Self 1980 [address] [place] [address] [employer] [employer] Advance Directives * Full Code (Latest Code Status on File) Date Activated Date Inactivated Comments 01/21/2024 5:54 PM 01/22/2024 3:55 PM
--- OUTSIDE RECORDS SUMMARY | 2025-01-20 09:51 | XMS_ITS | Clinical Summary ---
Demographics Address [address] [place] [address] Mobile Phone Home Phone Email Address Preferred Language Norwegian Marital Status Yarsanism Affiliation Unknown Race White Ethnic Group Not or Lati no Author Organization [facility] Address [address] [place] [address] Care Team Providers Care Title Clerk Name Role Phone Slick Mills MD Primary Care Provider [phone] Allergies Active Allergy Reactions Criticality Noted Date Comments Ceftriaxone Rash Low 10/22/2019 Sulfa Antibiotics 05/13/2020 Medications ibuprofen (ADVIL;MOTRIN) 800 MG tabletIndication s:Frontal headache TAKE 1 TABLET BY MOUTH EVERY 8 HOURS NEEDED FOR PAIN 60 tablet 05/23/2023 Active Relugolix-Estrad iol-Norethind 40-1-0.5 MG TABS Take 1 tablet by mouth daily 30 tablet 5 07/10/2023 Active levothyroxine (SYNTHROID) 150 MCG tablet Take 1 tablet by mouth daily 01/23/2024 Active Cholecalciferol (VITAMIN D) 50 MCG (1999) CAPS capsule Take by mouth Active escitalopram (LEXAPRO) 10 MG tabletIndication s:Adjustment disorder with depressed mood Take 1 tablet by mouth daily 30 tablet 11 09/02/2024 Active Active Problems Patient Care Coordination No te Formatting of this note migh t be different from the original. HX: Asthma, Anemia, Fibromyalgia [place] of medicaid risk assesment form = Yes Does pt have history of infant delivery before 37 weeks? No testing = Desires CFNDA Ped = Dr Mills Blood type = O Positive Rhogam? = NA Flu shot = TDAP (27-36 wks)= GBS = Card - Problem Noted Date Diagnosed Date Menorrhagia with regular cycle 02/18/2024 Dysmenorrhea 02/18/2024 Incomplete 11/20/2022 Iron deficiency anemia secchidi fish to inadequate dietary iron intake 04/22/2021 Fibromyalgia 09/06/2017 Encounter for supervision of other normal pregna ncy 12/12/2014 Overview (06/06/2015): Replacing Inactive Diagnoses Family History Medical History Relation Name Comments No Known Problems Brother Seizures Child Alcohol Abuse Father Mental Illness Father Heart Attack Maternal Grandfather High Blood Pressure Maternal Grandfather Brain Cancer Maternal Grandmother Lung Cancer Maternal Grandmother Brain Cancer Mother Lung Cancer Mother No Known Problems Paternal Grandfather No Known Problems Paternal Grandmother No Known Problems Sister 1 Breast Cancer Neg Hx Clotting Disorder Neg Hx Ovarian Cancer Neg Hx Relation Name Status Comments Brother Alive Child Alive Father Alive Maternal Grandfather Maternal Grandmother Mother Paternal Grandfather Alive Paternal Grandmother Sister 1 Alive Sister 2 Alive Sister 3 Alive Sister 4 Alive Sister 5 Alive Sister 6 Alive Sister 7 Alive Social History Tobacco Use Types Packs/Day Years Used Date Smoking Tobacco: Never Smokeless Tobacco: Never Tobacco Cessation:Counseling Given: Not Answered Alcohol Use Standard Drinks/Week Comments Yes 0 (1 standard drink = 0.6 oz pur e alcohol) rarely Overall Financial Resource Strain (CARDIA) Answe r Date Recorded How hard is it for you to pa y for the very basics like food, housing, medical care, and heating? Very hard 06/17/2024 PHQ-2 Answer Date Recorded PHQ-9 Total Score 0 10/09/2023 Hunger Vital Sign Answer Date Recorded Within the past 12 months, y ou worried that your food would run out before you got the money to buy more. Sometimes true Within the past 12 months, t he food you bought just didn't last and you didn't have money to get more. Sometimes true 07/2024 PRAPARE - Transportation Answer Date Re corded Lack of Transportation (Medical) Not on file 06/17/2024 In the past 12 months, has l ack of transportation kept you from meetings, work, or from getting things needed for daily living? No 06/17/2024 Housing Stability Vital Sign Answer Talha e Recorded Unable to Pay for Housing in the Last Year Not o n file 06/17/2024 Number of Times Moved in the Last Year Not on fi le 06/17/2024 At any time in the past [address] [facility], were you homeless or living in a fdc (including now)? No 06/17/2024 Food Insecurity Answer Date Recorded Within the past 12 months, y ou worried that your food would run out before you got the money to buy more. 2 06/17/2024 Within the past 12 months, t he food you bought just didn't last and you didn't have money to get more. 2 06/17/2024 Interpersonal Safety Domain Source: IP Abuse Scr eening Answer Date Recorded Physical abuse Denies 02/18/2024 Verbal abuse Denies 02/18/2024 Emotional abuse Denies 02/18/2024 Financial abuse Denies 02/18/2024 Sexual abuse Denies 02/18/2024 Comments No Sex and Gender Information Value Date Recorded Sex Assigned at Not on file Legal Sex Female 5:09 PM EST Gender Identity Not on file Sexual Orientation Not on file Last Filed Vital Signs Vital Sign Reading Time Taken Comments Blood Pressure 128/80 06/17/2024 1:18 PM EST Pulse 75 02/18/2024 7:00 PM EDT Temperature 36.3 C (97.3 F) 02/18/2024 5:13 PM EDT Respiratory Rate 16 02/18/2024 7:00 PM EDT Oxygen Saturation 96% 02/18/2024 7:00 PM EDT Inhaled Oxygen Concentration - - Weight 97.1 kg (214 lb) 06/17/2024 1:18 PM EST Height 165.1 cm (5' 5 ) 06/17/2024 1:18 PM EST Body Mass Index 35.61 06/17/2024 1:18 PM EST Plan of Treatment Upcoming Encounters Date Type Department Care Team (Late st Contact Info) Description 06/18/2025 1:45 PM EST Office Visit [facility]OLOGY Part of [address] [place] [address] Sendy Hernandez, COMMERCIAL REAL ESTATE SALES MANAGER - [address] [place] [address] yearly Health Maintenance Due Date Last Done Comments Varicella vaccine (1 of 2 - 13+ 2-dose series) 1993 Hepatitis B vaccine (1 of 3 - 19+ 3-dose series) 11/29/1999 COVID-19 Vaccine ( - 2023- season) 2024 Depression Screen 10/08/2024 10/09/2023 DTaP/Tdap/Td vaccine (2 - Td or Tdap) 01/19/2025 01/19/2015 Flu vaccine (Season Ended) 2025 Breast cancer screen 09/19/2026 09/19/2024, 08/07/19 Pap smear 06/17/2027 06/17/2024, 05/06, 05/13/2020, Additional history exists Lipids 09/18/2028 09/18/2023, 09/07, 05/08/2015 Cervical cancer screen 06/17/2029 HPV (without or with Pap) 06/17/20292023, 05/17/2021, 05/13/2020, Additional history exists HIV screen Completed 10/24/2022 Hepatitis C screen Completed 10/24/2022 A1C test (Diabetic or Prediabetic) Discontinued 09/18/2023, 10/24/2022, 09/28/2022, Additional history exists HPV vaccine Aged Out No longer eligi ble based on patient's age to complete this topic Hepatitis A vaccine Aged Out No longe r eligible based on patient's age to complete this topic Hib vaccine Aged Out No longer eligi ble based on patient's age to complete this topic Meningococcal (ACWY) vaccine Aged Out No longer eligible based on patient's age to complete this topic Meningococcal B vaccine Aged Out No l onger eligible based on patient's age to complete this topic Pneumococcal 0-49 years Vaccine Aged Out No longer eligible based on patient's age to complete this topic Polio vaccine Aged Out No longer elig ible based on patient's age to complete this topic Procedures Procedure Name Priority Date/Time Associated Diagnosis Comments LUCY AIDA DIGITAL DIAGNOSTIC UNILATERAL LEFT Routine 09/19/2024 9:50 AM EST Abnormal mammogram of left breast HUMAN PAPILLOMAVIRUS (HPV) DNA PROBE THIN PREP HIGH RISK Routine 06/17/2024 12:00 AM EST [facility] CYTOLOGY Routine 06/17/2024 12:00 AM EST LIPID PANEL Routine 09/18/2023 2:53 PM EST HEMOGLOBIN A1C Routine 09/18/2023 2:53 PM EST HIV SCREEN Routine 10/24/2022 3:22 PM EDT Encounter for supervision of other normal in first trimester Amenorrhea HEPATITIS C ANTIBODY Routine 10/24/2022 3:22 PM EDT Encounter for supervision of other normal in first trimester Amenorrhea from Last 3 Months or Most Recently Relevant to Health Maintenance Results * LUCY AIDA DIGITAL DIAGNOSTIC UNILATERAL LEFT (09/19/2024 9:50 AM EST) Anatomical Region Laterality Modality Breast Left Mammography 09/19/2024 10:2 5 AM EST Impressions 09/19/2024 10:28 AM EST Benign findings. No mammographic or ultrasonographic evidence of malignancy. BIRADS: BIRADS - CATEGORY 2 Benign Findings. Normal interval follow-up is recommended in 12 months. OVERALL ASSESSMENT - BENIGN A letter of notification will be sent to the patient regarding the results. The [employer] recommends annual mammograms for women 40 years and older. Performing Facility: [place] [address] Narrative 09/19/2024 10:28 AM EST EXAMINATION: DIAGNOSTIC DIGITAL LEFT BREAST MAMMOGRAM WITH [...] cm from the nipple. Left axilla negative. Sendy Hernandez APRN - PARMJIT IM MAMMOGRAPHY ORDERABLES Final Result * Human papillomavirus (HPV) DNA probe thin prep high risk (06/17/2024 12:00 AM EST) Specimen Description CERVICAL MATERIAL 06/17/2024 12:00 AM EST [facility] HPV Sample .THIN PREP 06/17/2024 12:00 AM EST [facility] HPV, Genotype 16 Not Detected Not Detected 06/17/2024 12:00 AM EST [facility] HPV, Genotype 18 Not Detected Not Detected 06/17/2024 12:00 AM [facility] HPV, High Risk Other Not Detected Not Detected 06/17/2024 12:00 AM [facility] HPV, Interpretation 06/17/2024 12:00 AM EST [facility] Comment: This test amplifies and detects DNA [...] sexual abuse or for other forensic purposes. CERVICAL MATERIAL 06/17/2024 Sendy Hernandez COMMERCIAL REAL ESTATE SALES MANAGER - CNM HEMATOLOGY ORDER ASHLEY Final Result [facility] [address] [place] [address], [facility] [phone] [phone] * [facility] Cytology (06/17/2024 12:00 AM EST) Cytology Report Path Number: [id number] DIAGNOSIS Imaged ThinPrep Pap - Cervical (1 monolayer slide): Specimen Adequacy: Satisfactory for evaluation. - Endocervical/tra nsformation zone component present. Descriptive Diagnosis: Atypical squamous cells of undetermined significance (ASC-US). Cytotech Screener: EY Electronically Signed Out Kat Henry. /06/27/2024 Procedure/Addend um HPV Procedure Report Date Ordered: 06/27/2024 Status: [...] or for other forensic purposes. Performed at [address] [address] ([phone] Source of Specimen: A: Imaged ThinPrep Pap - Cervical (1 monolayer slide) HPV Reflex?......... .............HPV if ASCUS Clinical History Contraceptive use Z12.4 Encounter for screening for malignant neoplasm of cervix LMP: 06/02/2024 Processing Lab: [address] [id number] Interpretation performed at [place] [id number] [place] [address] This Pap Test has been evaluated with [...] GYNECOLOGIC CYTOLOGY REPORT Patient Name: KALLIE WEEKS [facility] Rec: [id number] [facility] ANATOMIC PATHOLOGY [address] [place], [place] [phone] [facility] CERVICAL MATERIAL 06/17/2024 024 8:51 AM EST us Sendy Hernandez APRN - PARMJIT PATHOLOGY/CYTOLO GY ORDERABLES Final Result Performing Organization Address City/[facility]/ZIP Co de Phone Number [facility] [address] [place] [address] [facility] * Hemoglobin A1C (09/18/2023 2:53 PM EST) Hemoglobin A1C 5.5 4.0 - 6.0 % 09/18/2023 2:53 PM EST [facility] Estimated Avg Glucose 111 mg/dL 09/18/2023 2:53 PM EST [facility] Comment: The ADA and AACC recommend providing the estimated average glucose result to permit better patient understanding of their HBA1c result. 09/18/2023 2:53 PM EST 09/18/2023 2:54 PM EST us Slick Mills MD CHEMISTRY ORDERABLES Final Resu lt Performing Organization Address City/[facility]/ZIP Co de Phone Number [facility] [address] [place] [address], [facility] [phone] [facility] [address] [place] [address] * Lipid Panel (09/18/2023 2:53 PM EST) Cholesterol 184 <200 mg/dL 09/18/2023 2:53 PM EST [facility] Comment: Cholesterol Guidelines: <200 Desirable 200-240 Borderline >240 Undesirable HDL 46 >40 mg/dL 09/18/2023 2:53 PM EST [facility] Comment: HDL Guidelines: <40 Undesirable 40-59 Borderline >59 Desirable LDL Cholesterol 115 0 - 130 mg/dL 09/18/2023 2:53 PM EST [facility] Comment: LDL Guidelines: <100 Desirable 100-129 Near to/above Desirable 130-159 Borderline >159 Undesirable Direct (measured) LDL and calculated LDL are not interchangeable tests. Chol/HDL Ratio 4.0 <5 09/18/2023 2:53 PM EST [facility] Comment: Triglycerides 117 <150 mg/dL 09/18/2023 2:53 PM EST [facility] Comment: Triglyceride Guidelines: <150 Desirable 150-199 Borderline 200-499 High >499 Very high Based on AHA Guidelines for fasting triglyceride, May 2012. 09/18/2023 2:53 PM EST 09/18/2023 2:54 PM EST us Slick Mills MD CHEMISTRY ORDERABLES Final Resu lt [facility] [address] [place] [address], [facility] [phone] [facility]line [place] [id number] [phone] * Hepatitis C Antibody (10/24/2022 3:22 PM EDT) Hepatitis C Ab NONREACTIVE NONREACTIVE 10/25/19 3:22 PM EDT [facility] Comment: The hepatitis C procedure used in our laboratory is a Chemiluminescent test specific for three recombinant HCV antigens. A negative anti-HCV result indicates that the antibodies to hepatitis C virus are not present at this time. Individuals with reactive anti-HCV should be considered infected and infectious until proven otherwise. Confirmation of all equivocal or reactive results is recommended by ordering HCV RNA by PCR. BLOOD SPECIMEN / Unknown 10/24/2022 3:22 PM EDT 10/24/2022 3:22 PM EDT Sendy Hernandez COMMERCIAL REAL ESTATE SALES MANAGER - CNM IMMUNOLOGY ORDER ASHLEY Final Result [facility] [address] [place] [address], [facility] [phone] [facility] [address] [place] [address], [facility] [phone] * HIV Screen (10/24/2022 3:22 PM EDT) HIV Ag/Ab NONREACTIVE NONREACTIVE 10/24/2022 3:22 PM EDT [facility] Comment: No laboratory evidence of HIV infection. If acute HIV infection is suspected, consider testing for HIV-1 RNA. BLOOD SPECIMEN / Unknown 10/24/2022 3:22 PM EDT 10/24/2022 3:22 PM EDT Sendy Hernandez COMMERCIAL REAL ESTATE SALES MANAGER - CNM IMMUNOLOGY ORDER ASHLEY Final Result Performing Organization Address City/[facility]/ZIP Co de Phone Number [facility] [address] [place] [address], [facility] [phone] [facility] [address] [place] [address], [facility] [phone] from Last 3 Months or Most Recently Relevant to Health Maintenance Insurance * Guarantor: Kallie Weeks Account Type Relation to Patient Date of Phone Billing Address Personal/Family Self 1980 [address] [place] [address] [facility] * Guarantor: Kallie Weeks Account Type Relation to Patient Date of Phone Billing Address Personal/Family Self 1980 [address] [place] [address] [facility] Advance Directives * Full Code (Latest Code Status on File) Date Activated Date Inactivated Comments 02/18/2024 12:39 PM 02/18/2024 9:26 PM * Full Code Date Activated Date Inactivated Comments 12/26/2021 1:46 PM 12/26/2021 7:03 PM Care Teams Title Clerk Relationship Specialty Start Date End Date Slick Mills MD [address] [place] [phone] PCP - General 05/08/15
--- OUTSIDE RECORDS SUMMARY | 2025-01-20 09:51 | XMS_ITS | Encounter Summary ---
Author Organization [facility] Address [address] [address] Care Team Providers Care Formula Weigher Name Role Phone Slick Mills MD Primary Care Provider [phone] Reason for Referral * Imaging (Emergency) - Closed Specialty Diagnoses / Procedures Referred By Starla juarez Referred To Contact Radiology Diagnoses Nontoxic goiter Procedures US THYROID Slick Mills MD [address] [place] [address] Phone: tel: fax: Referral ID Status Reason Start Date Expiration Date Visits Re quested Visits Authorized [id number] Closed 05/10/2023 05/09/2024 1 1 Encounter Details Date Type Department Care Team (Latest Contact Info) Description 05/10/2023 Transcribe Orders [facility] [address] [place] [phone] Slick Mills MD [address] [place] [address] Nontoxic goiter (Primary Dx) Social History Tobacco Use Types Packs/Day Years Used Date Smoking Tobacco: Never Smokeless Tobacco: Never Alcohol Use Standard Drinks/Week Comments Not Currently 0 (1 standard drink = 0.6 oz pur e alcohol) PHQ-2 Answer Date Recorded PHQ-9 Total Score 0 09/14/2020 Food Insecurity Answer Date Recorded Within the past 12 months, y ou worried that your food would run out before you got the money to buy more. 2 11/06/2022 Within the past 12 months, t he food you bought just didn't last and you didn't have money to get more. 2 11/06/2022 Comments No Sex and Gender Information Value Date Recorded Sex Assigned at Not on file Legal Sex Female 5:09 PM EST Gender Identity Not on file Sexual Orientation Not on file documented as of this encounter Plan of Treatment Upcoming Encounters Date Type Department Care Team (Late st Contact Info) Description 06/18/2025 1:45 PM EST Office Visit [facility] OBSTETRICS [facility]YNECOLOGY Part of [address] [place] [address] Sendy Hernandez, AIR MOVING TECHNICIAN - [address] [place], [place] [phone] yearly Scheduled Orders Name Type Priority Associated Diagnoses Orde r Schedule US THYROID Imaging STAT Nontoxic goiter Expected: 05/10/2023, Expires: 05/10/2024 documented as of this encounter Visit Diagnoses Diagnosis 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
--- OUTSIDE RECORDS SUMMARY | 2025-01-20 09:51 | XMS_ITS | Patient Health Record ---
Author Organization [facility] [place] Address [address] [place] [address] Care Team Providers Care Liberal Arts Teacher Name Role Phone DIMITRI MILLS MD Primary Care Provider [phone] Provider, Lab Unavailable [phone] Caryn Apodaca Unavailable [phone] Dimitri Mills Unavailable [phone] Allergies Allergen (clinical drug ingredient) Drug/Non Drug Allergy documented on EMR Reaction Allergy Type Onset Date Status ceftriaxone Ceftriaxone hives Drug Allergy Act chas Substance with sulfonamide structure and antibacterial mechanism of action (substance) Sulfa Antibiotics hives Drug Allergy Active Results Component Value Reference Range Notes T4 FREE and TSH Reviewed date:12/22/2024 01:23:08 PM Interpretation: Performing Lab:[facility], [address] [place], [address] Notes/Report: FACILITY: [facility] [place] [id number] T4 - FREE 1.17 (0.64 - 1.79) UG/DL hTSH 2.08 (0.470 - 4.680) mIU/L Occult Blood* Reviewed date:10/03/2024 12:58:19 PM Interpretation: Performing Lab: Notes/Report: [facility] , Occult Blood Positive Performing Lab: see note ML - [facility] LB LAB TESTING Reviewed date:12/21/2024 10:50:25 PM Interpretation: Performing Lab: Notes/Report: [id number] Anti-DNase B (Streptococcal) Antibodies [facility] , Miscellaneous Test COMMENT . Test Ordered: [id number] Anti-DNase B Strep Antibodies Performed at: [facility] Audio Visual Director: Lynsey Fuentes MD, Phone: [phone] Reference Range: 0-120 Anti-DNase B Strep Antibodies 185 [H ] U/mL [address] [place] [id number] Audio Visual Director: Mitul Hernandez PhD, Phone: [phone] [address] [place] [phone] Performed at: [facility] Performing Lab: see note [facility] Systemic Lupus Profile A Reviewed date:10/07/2024 07:48:18 PM Interpretation: Performing Lab: Notes/Report: [facility] , LINE FISHER Antibodies <0.2 0.0-0.9 AI Hernandez Antibodies <0.2 0.0-0.9 AI Rheumatoid Factor (RF) <10.0 <14.0 IU/mL Antichromatin Antibodies <0.2 0.0-0.9 AI Sjogren's Anti-SS-A <0.2 0.0-0.9 AI Sjogren's Anti-SS-B 0.3 0.0-0.9 AI Anti-DNA (DS) Ab Qn <1 0-9 IU/mL [address] [place] [phone] Negative <5 Equivocal 5 - 9 Performed at: [facility] Audio Visual Director: Mitul Hernandez PhD, Phone: [phone] Positive >9 Performing Lab: see note [facility] Antistreptolysin O Ab Reviewed date:10/07/2024 07:48:18 PM Interpretation: Performing Lab: Notes/Report: [facility] , Antistreptolysin O Ab 247.9 0.0-200.0 IU/mL Audio Visual Director: Mitul Hernandez PhD, Phone: [phone] Performed at: [address] [id number] Performing Lab: see note [facility] URIC ACID SERUM Reviewed date:10/01/2024 08:23:23 PM Interpretation: Performing Lab: Notes/Report: [facility] , Uric Acid 3.7 2.6-6.0 mg/dL Performing Lab: see note - [facility] LB TSH Reviewed date:10/01/2024 08:23:23 PM Interpretation: Performing Lab: Notes/Report: [facility] , Thyroid Stimulating Hormone 12.753 0.358-3.740 u IU/mL Performing Lab: see note ML - [facility] LB FREE T4 Reviewed date:10/01/2024 08:23:23 PM Interpretation: Performing Lab: Notes/Report: [facility] , Free T4 0.92 0.76-1.46 ng/dL Performing Lab: see note ML - [facility] LB CRP Reviewed date:10/01/2024 08:23:23 PM Interpretation: Performing Lab: Notes/Report: [facility] , C Reactive Protein 1.06 <=0.50 mg/dL Performing Lab: see note ML - [facility] LB ISHA by IFA Reviewed date:10/07/2024 07:48:18 PM Interpretation: Performing Lab: Notes/Report: [facility] , Antinuclear Antibodies, IFA Negative . For more information about Hep-2 cell patterns use [address] [place] [address] [phone] Borderline 1:80 Positive >1:80 Patterns (ICAP). International Consensus on Antinuclear Antibody (ISHA) ANApatterns.org, the official website for the Negative <1:80 Audio Visual Director: Mitul Hernandez PhD, Phone: [phone] ICAP nomenclature: AC-0 Performed at: - [facility] [place] Performing Lab: see note LC - [facility] LB PROF 14(COMP METB) Reviewed date:10/01/2024 08:23:23 PM Interpretation: Performing Lab: Notes/Report: [facility] , Sodium 139 136-145 mmol/L Potassium 4.2 3.5-5.1 mmol/L Chloride 105 98-107 mmol/L Carbon Dioxide 25.3 21.0-32.0 mmol/L Anion Gap 12.9 Glucose 101 74-106 mg/dL Blood Urea Nitrogen 11.0 7.0-18.0 mg/dL Creatinine 0.92 0.55-1.02 mg/dL Estimated GFR ( Emg >60 >=60 mL/mi n/1.73m 2 Estimated GFR (Non- Karlee >60 >=60 mL/mi n/1.73m 2 BUN Creatinine Ratio 12.0 Calcium 8.9 8.5-10.1 mg/dL Bilirubin Total 0.3 0.2-1.0 mg/dL Aspartate Amino Transferase 21 15-37 U/L Alanine Aminotransferase 19 14-59 U/L Alkaline Phosphatase 105 46-116 U/L Total Protein 7.5 6.4-8.2 g/dL Albumin Level 3.5 3.4-5.0 g/dL Globulin 4.0 Albumin Globulin Ratio 0.9 Performing Lab: see note ML - [facility] LB CBC AUTO DIFF Reviewed date:10/01/2024 08:23:23 PM Interpretation: Performing Lab: Notes/Report: [facility] , White Blood Count 5.9 4.0-11.0 10 3/uL Red Blood Count 3.94 4.20-5.40 10 6/uL Hemoglobin 10.4 12.0-16.0 g/dL Hematocrit 32.7 36.0-48.0 % Mean Corpuscular Volume 83.0 81.0-99.0 fL Mean Corpuscular Hemoglobin 26.4 26.7-34.0 pg Mean Corpuscular HGB Conc 31.8 29.9-35.2 g/dL Red Cell Distribution Width 13.7 11.0-15.0 % Platelet Count 334 150-450 10 3/uL Mean Platelet Volume 11.1 9.5-13.5 fL Neutrophils Percent Auto 49.8 43.0-75.0 % Lymphocytes Percent Auto 37.1 20.5-60.0 % Monocytes Percent Auto 7.1 1.7-12.0 % Eosinophils Percent Auto 4.9 0.9-7.0 % Basophils Percent Auto 0.9 0.2-2.0 % Immature Granulocytes Pct Auto 0.2 0.0-0.5 % Neutrophils Absolute Auto 2.9 1.4-6.5 10 3/uL Lymphocytes Absolute Auto 2.2 1.2-3.8 10 3/uL Monocytes Absolute Auto 0.4 0.3-0.8 10 3/uL Eosinophils Absolute Auto 0.3 0.0-0.7 10 3/uL Basophils Absolute Auto 0.1 0.0-0.1 10 3/uL Immature Granulocytes Abs Auto 0.01 0.00-0.03 10 3/uL Performing Lab: see note ML - [facility] LB T4 FREE and TSH Reviewed date:01/31/2024 12:06:01 PM Interpretation: Performing Lab:[facility], [address] [place], [address] Notes/Report: 1SST FACILITY: [facility] [id number] T4 - FREE 1.55 (0.64 - 1.79) UG/DL hTSH 0.965 (0.470 - 4.680) mIU/L Antistreptolysin O Ab Reviewed date:12/18/2024 08:59:31 PM Interpretation: Performing Lab: Notes/Report: [facility] , Antistreptolysin O Ab 215.1 0.0-200.0 IU/mL Performed at: [facility] [id number] Audio Visual Director: Mitul Hernandez PhD, Phone: [phone] Performing Lab: see note - [facility] LB HCG Qualitative* Reviewed date:11/05/2024 08:03:40 PM Interpretation: Performing Lab: Notes/Report: [facility] , HCG Qualitative NEGATIVE NEGATIVE Performing Lab: see note ML - [facility] LB Erythrocyte Sedimentation Ra te Reviewed date:10/01/2024 08:23:23 PM Interpretation: Performing Lab: Notes/Report: [facility] , Erythrocyte Sedimentation Rate 51 <=20 mm/hr Performing Lab: see note ML - [facility] LB Reason For Referral Diagnosis 1 Occult blood in stoo ls (R19.5) Referral Organization [facility] Referring Provider First Name Dimitri Referring Provider Last Name Gene Referring Provider Speciality Family Med babak Referred Provider Vick Dunbar Referred Provider Specialty General Surg lynnette Referral Priority Routine Medications Medication SIG (Take, Route, Frequency, Duration) [...] Question Answer Notes Patient is a nonsmoker Alcohol Screen (Audit-C) Question Answer Notes Did you have a drink containing alcohol in the p ast year? No Points 0 Interpretation Negative AUDIT-C (Standard) Question Answer Notes Did you have a drink containing alcohol in the p ast year? No Points 0 Interpretation Negative Section Notes: no alcohol. no alcohol. no alcohol. no alcohol. no alcohol. no alcohol. no alcohol. no alcohol. no alcohol. 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 storm (E05.90) Active confirmed Problem 88471945 Vitamin D deficiency, unspecified (E55.9) Active confirmed Problem Snoring (46211647) Snoring (R06.83) Active confirmed Problem Fatigue (76873085) Fatigue (R53.83) Active confirmed Problem Anemia (622800208) Anemia (D64.9) Active confirmed Problem Eczema (51520932) Eczema (L30.9) Active confirm ed Problem Arthralgia (46871394) Arthralgia (M25.50) Active confirmed Problem Thyroid nodule (780332953) Thyroid nodule (E04.1) Active confirmed Problem Well adult (548110914) Well adult (Z00.00) Active confirmed Problem Acquired hypothyroidism (788768314) Acquired hypothyroidism (E03.9) Active confirmed Problem History of Graves' disease (474612727557525) History of Graves' disease (Z86.39) Active confirmed Problem 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 Problem Postoperative Hypothyroidism (49175776) Status post total thyroidectomy (E89.0) Active confirmed Problem Disorder of sacrum (03294087) Low back derangement syndrome (M53.86) Active confirmed Vital Signs Heart Rate 70 /min 12/22/2024 Blood pressure diastolic 68 mm Hg 01/20/2025 Height 65 in 01/20/2025 Blood pressure systolic 112 mm Hg 01/20/2025 Weight 227.2 lbs 01/20/2025 BMI 37.8 kg/m2 01/20/2025 Procedures Procedure Date Ordered Date Performed Result Body Sit e Sleep study - Diagnostic Polysonogram 05/02/2024 N/A Encounters Encounter Location Date Provider Diagnosis [address] [address] 01/20/2025 Dimitri Hoy Eczema L30.9 and Low back derangement syndrome M53.[address] [place] [address] 10/15/2024 Maisoon Torfah Acquired hypothyroidism E03.9 ; Status post total thyroidectomy E89.0 ; Graves' ophthalmopathy E05.00 and History of Graves' disease Z86.[address] [place] [address] 12/22/2024 Maisoon Torfa Acquired hypothyroidism E03.9 ; Status post total thyroidectomy E89.0 ; Graves' ophthalmopathy E05.00 and History of Graves' disease Z86.[address] [place] [address] 01/30/2024 Maisoon Torfah Acquired hypothyroidism E03.9 ; Status post total thyroidectomy E89.0 ; Graves' ophthalmopathy E05.00 and History of Graves' disease Z86.[address] [place] [address] 05/01/2024 Maisoon Torfah Acquired hypothyroidism E03.9 ; Status post total thyroidectomy E89.0 ; Graves' ophthalmopathy E05.00 and History of Graves' disease Z86.39 [facility] [address] [place] [address] 01/30/2024 Lab Provider [facility] [address] [place] [address] 12/22/2024 Lab Provider [address] [address] 05/02/2024 Dimitri Hoy Fatigue R53.83 and Snoring R06.83 [facility] [address] [place] [facility] [place] [address] 10/01/2024 Dimitri Hoy Arthralgia M25.50 [facility] [address] [place] [facility] [place] [place] [address] 12/17/2024 Dimitri Hoy Thyrotoxicosis, unspecified without thyrotoxic crisis or storm E05.90 and Eczema L30.9 [facility] [address] [place] [facility] [place] [place] [address] 10/07/2024 Dimitri Hoy Abnormal blood findi ng R79.9 [facility] [address] [place] [facility] [place] [place] [address] 11/19/2024 Dimitri Hoy Arthralgia M25.50 [place] [address] [place] [facility] [address] 12/18/2024 Dimitri Hoy Abnormal blood findi ng R79.9 [place] [address] [place] [facility] [address] 12/21/2024 Dimitri Hoy Arthralgia M25.50 [facility] [address] [place] [place] [place] [address] 01/12/2025 Dimitri Hoy Endocrin[facility] [address] [place] [address] 01/31/2024 [facility] [address] [place] [address] 01/31/2024 [facility] [address] [place] [address] 04/24/2024 [facility] [address] [place] [facility] [place] [place] [address] 05/27/2024 Dimitri Hoy [facility] [address] [place] [facility] [place] [place] [address] 10/01/2024 Dimitri Hoy Anemia D64.9 [place] [address] [facility] [place] [address] 10/03/2024 Dimitri Hoy Occult blood in stoo ls R19.5 and Anemia D64.9 Assessments Encounter Date Diagnosis (ICD Code) Assessment Notes Treatment Notes Treatment Clinical Notes Section Notes 01/30/2024 Acquired hypothyroidism (ICD-10 - E03.9) Patient underwent total thyroidectomy for Graves' disease. Pathology was benign for malignancy. Goal TSH is to be within normal range. However if patient plans to get , she is well aware that we will need to increase the dose of levothyroxine up to 25-30%. Will check TFTs today for follow-up and adjust dose of levothyroxine if needed. 01/30/2024 Status post total thyroidectomy (ICD-10 - E89.0) 05/01/2024 Acquired hypothyroidism (ICD-10 - E03.9) Patient underwent total thyroidectomy for Graves' disease. Pathology was benign for malignancy. Goal TSH is to be within normal range. However if patient plans to get , she is well aware that we will need to increase the dose of levothyroxine up to 25-30%. Repeat TFTs were done at [facility] 3.97 with FT4 0.94. Patient will continue with same dose of LT4 150 mcg daily 05/02/2024 Snoring (ICD-10 - R06.83) 05/02/2024 Fatigue (ICD-10 - R53.83) 10/15/2024 Acquired hypothyroidism (ICD-10 - E03.9) Patient underwent total thyroidectomy for Graves' disease. Pathology was benign for malignancy. Goal TSH is to be within normal range. However if patient plans to get , she is well aware that we will need to increase the dose of levothyroxine up to 25-30%. Repeat TFTs were done and were high. Will increase dose of LT4 from 150 mcg to 175 mcg daily 10/01/2024 Arthralgia (ICD-10 - M25.50) 12/17/2024 Thyrotoxicosis, unspecified without thyrotoxic crisis or storm (ICD-10 - E05.90) 12/17/2024 Eczema (ICD-10 - L30.9) 12/22/2024 Acquired hypothyroidism (ICD-10 - E03.9) Patient underwent total thyroidectomy for Graves' disease. Pathology was benign for malignancy. Goal TSH is to be within normal range. However if patient plans to get , she is well aware that we will need to increase the dose of levothyroxine up to 25-30%. Patient is clinically biochemically euthyroid. She will continue the same dose of levothyroxine 175 mcg daily 10/01/2024 Anemia (ICD-10 - D64.9) 10/03/2024 Anemia (ICD-10 - D64.9) 10/03/2024 Occult blood in stools (ICD-10 - R19.5) 10/07/2024 Abnormal blood finding (ICD-10 - R79.9) 11/19/2024 Arthralgia (ICD-10 - M25.50) 12/18/2024 Abnormal blood finding (ICD-10 - R79.9) 12/21/2024 Arthralgia (ICD-10 - M25.50) 01/20/2025 Eczema (ICD-10 - L30.9) 01/20/2025 Low back derangement syndrome (ICD-10 - M53.86) 12/22/2024 Status post total thyroidectomy (ICD-10 - E89.0) 05/01/2024 Status post total thyroidectomy (ICD-10 - E89.0) 10/15/2024 Status post total thyroidectomy (ICD-10 - E89.0) 01/30/2024 Graves' ophthalmopathy (ICD-10 - E05.00) Patient is notable to have right eye proptosis. She denied blurry vision double vision. She was recommended to follow-up with the referral done by Dr. Sierra 01/30/2024 History of Graves' disease (ICD-10 - Z86.39) 05/01/2024 Graves' ophthalmopathy (ICD-10 - E05.00) Patient is notable to have right eye proptosis. She denied blurry vision double vision. She was recommended to follow-up with the referral done by Dr. Sierra Patient was seen by Dr. Dang at [place] 12/22/2024 Graves' ophthalmopathy (ICD-10 - E05.00) Patient is notable to have right eye proptosis. She denied blurry vision double vision. She was recommended to follow-up with the referral done by Dr. Sierra Patient was seen by Dr. Dang at [place] 10/15/2024 Graves' ophthalmopathy (ICD-10 - E05.00) Patient is notable to have right eye proptosis. She denied blurry vision double vision. She was recommended to follow-up with the referral done by Dr. Sierra Patient was seen by Dr. Dang at [place] 12/22/2024 History of Graves' disease (ICD-10 - Z86.39) 05/01/2024 History of Graves' disease (ICD-10 - Z86.39) 10/15/2024 History of Graves' disease (ICD-10 - Z86.39) 01/20/2025 Other Recommended to rest and use a heating pad on the area. Take NSAIDs for pain as needed Plan Of Treatment Pending Test Test Name Order Date CMP (COMPLETE METABOLIC PANEL) 4 UA (URINALYSIS, COMPLETE) 12/21/2024 ANTI - DNASE B (STREPTOCOCCAL) 5 ANTI - DNASE B (STREPTOCOCCAL) 5 ANTI - DNASE B (STREPTOCOCCAL) 5 HEMOGLOBIN A1C (GLYCO) 09/12/2023 IRON, TOTAL 09/12/2023 LIPID PANEL (CHOL/TRIG/HDL/LDL) 09/12/19 24 CBC WITH DIFF 09/12/2023 RHEUMATOID PANEL 10/01/2024 FECAL OCCULT BLOOD 10/01/2024 Sleep study - Diagnostic Polysonogram Insulin Level 09/12/2023 OCCULT BLOOD 09/19/2023 CBC AUTO DIFF 01/20/2025 FREE T3 01/20/2025 SED RATE WESTERGREN 10/01/2024 SLE PROFILE A 10/01/2024 THYROID PROFILE WITH TSH 10/01/2024 VITAMIN D 25 [place] 11/26/2023 US THYROID 05/08/2023 XR LSPINE MIN 4 VIEWS 01/20/2025 THYROID PANEL (T4/TSH/FREE T3) 4 MM screening mammo BI 05/02/2024 Antistreptolysin O Ab 10/07/2024 Future Test Test Name Order Date T3 FREE, T4 FREE and TSH 03/02/2023 T3 FREE, T4 FREE and TSH 05/11/2023 T3 FREE, T4 FREE and TSH 07/16/2023 T4 FREE and TSH 05/01/2024 T4 FREE and TSH 08/31/2024 T4 FREE and TSH 12/15/2024 Next Appt Details Provider Name:Caryn Apodaca , 03/18/2025 02:00:00 PM, [address] [facility], [place], [address], Insurance Providers Payer Name Payer Address Payer Phone Subscriber Number Group Number Insured Name Patient Relationship to Insured Coverage Start Date Coverage End Date [employer] [place] [employer] [address] [facility] [place] [address] [id number] Johanne Salcido Self - patient is the insured 3 Medical (General) History Medical History History ICD Code depression hypothyroidism Anxiety F41.9 Migraine G43.909 Tympanic Membrane Perf, Left Ear Kidney stone N20.0 Fracture Right Ankle Surgical History Surgery Date(Month/Year) D&C-12 weeks gestation 11/[address] Dunbar 11/05/2024 uterine fibroid removal 02/18/24 total thyroidectomy 01/21/24 D&C 2021 Hospitalization History Reason Date(Month/Year) various ER's for last - with 2 units of blood transfused. 2022 TTH thyroid 01/2024
--- OUTSIDE RECORDS SUMMARY | 2025-01-20 09:51 | XMS_ITS | Clinical Summary ---
[facility] Organization [facility] Address [address] [place] [address] Care Team Providers Care Liner Replacer Name Role Phone Slick Mills MD Primary Care Provider [phone] Allergies Active Allergy Reactions Criticality Noted Date Comments Ceftriaxone Rash Low 10/22/2019 Sulfa Antibiotics 05/13/2020 Medications Ibuprofen 800 MG tablet Take 1 tablet by mouth every 8 hours as needed for Moderate Pain. 30 tablet 3 Active Cyclobenzaprine 10 MG tablet Take 1 tablet by mouth 3 times daily as needed for Muscle spasms for up to 5 days. This medication can cause drowsiness. Do not drive or operate machinery while taking this medication. 15 tablet 4 Active Cholecalciferol (Vitamin D3) 50 MCG capsule Take 50 mcg by mouth daily. 4 Active Levothyroxine 150 MCG tablet Take 1 tablet by mouth daily. 4 Active Relugolix-Estra diol-Norethind (Myfembree) 40-1-0.5 MG tablet Take 40 mg by mouth daily. 3 Active Active Problems Problem Noted Date Diagnosed Date Incomplete 11/20/2022 Family History Medical History Relation Name Comments Dysrhythmia Maternal Aunt Leigha Heart Failure Maternal Grandfather Lucas Cancer- Other Maternal Grandmother Kallie Brain Diabetes Maternal Grandmother Kallie Lung Cancer Maternal Grandmother Kallie Stroke Maternal Grandmother Kallie Cancer- Other Mother Kallie Brain Lung Cancer Mother Kallie Relation Name Status Comments Maternal Aunt Leigha Maternal Grandfather Lucsa Maternal Grandmother Kallei Mother Kallie Social History Tobacco Use Types Packs/Day Years Used Date Smoking Tobacco: Never Smokeless Tobacco: Never Tobacco Cessation:Counseling Given: Not Answered Alcohol Use Standard Drinks/Week Comments Never 0 (1 standard drink = 0.6 oz pur e alcohol) Irene Depression Scale Answer Date Recorded Irene Depression Score 0 11/20/2022 Thought Of Harming Self Unrecognized value 11/20 Comments No Sex and Gender Information Value Date Recorded Sex Assigned at Not on file Legal Sex Female 6:55 PM EST Gender Identity Not on file Sexual Orientation Not on file Last Filed Vital Signs Vital Sign Reading Time Taken Comments Blood Pressure 115/71 11/29/2023 7:49 PM EDT Pulse 89 11/29/2023 7:49 PM EDT Temperature 36.4 C (97.6 F) 11/29/2023 7:49 PM EDT Respiratory Rate 16 11/29/2023 7:49 PM EDT Oxygen Saturation 96% 11/29/2023 7:49 PM EDT Inhaled Oxygen Concentration - - Weight - - Height 165.1 cm (5' 5 ) 11/20/2022 3:03 AM EDT Body Mass Index - - Plan of Treatment Health Maintenance Due Date Last Done Comments HEPATITIS C VIRUS SCREENING 1980 TSH 1980 HIV SCREENING DISCUSSION 11/29/1995 CERVICAL CANCER SCREENING DISCUSSION 2001 HEP B VACCINE (2 of 3 - 19+ 3-dose series) 01/25/2011 12/28/2010 LIPID SCREENING 2020 MAMMOGRAM SCREENING DISCUSSION 2020 COVID-19 VACCINE (2023-2 5 season) 2024 TETANUS 01/19/2025 01/19/2015 INFLUENZA VACCINE (Season Ended) 2025 TDAP (ADULT) Completed 01/19/2015 HPV VACCINE Aged Out No longer eligi ble based on patient's age to complete this topic PNEUMOCOCCAL VACCINE SERIES Aged Out No longer eligible based on patient's age to complete this topic Insurance [address] [address] [facility] Advance Directives For more information, please contact: [phone] (7:30 AM - 6PM [facility], Sunday-Sunday) * Full Code (Latest Code Status on File) Date Activated Date Inactivated Comments 11/20/2022 11:24 AM Care Teams Liner Replacer Relationship Specialty Start Date End Date Slick Mills MD PCP - General Family Medicine 07/28/19
--- NOTE | 2025-01-20 09:58 | XR_ITS ---
The [address] [address] Patient Name: KALLIE KEYES MRN: [facility]:[id number] date: 1980 Sex: F Assigned Patient Location: LAB Current Patient Location: LAB Accession/Order Number: [id number] Exam Date: 01/20/2025 10:43 Report Date: 01/20/2025 10:54 At the request of: DESI MANJARREZ MD Procedure: XR lumbar spine min 4V LUMBAR SPINE -4 views: CLINICAL HISTORY: Low chronic low back pain M53.86 COMPARISON: CT 12/04/2020 AP, lateral and both oblique views of the lumbosacral junction were obtained. There is no evidence of fracture. Alignment is maintained on the lateral view. There is slight disc space narrowing at the lumbosacral junction. There is no significant hypertrophy. No pars defect is identified. The sacroiliac joints are maintained. There are no paraspinal soft tissue abnormalities. XR/XR lumbar spine min 4V IMPRESSION: NO ACUTE PLAIN FILM FINDINGS. Impression dictated by: Zahira Stewart M.D. 01/20/2025 10:54 AM Dictation Location: [place] [address] Electronically authenticated by: [id number] Y Date: 01/20/2025 10:54
[2025-01-20 10:01] LABS: Basophils Absolute Auto 0.1 10^3/uL (0.0-0.1); Basophils Percent Auto 0.8 % (0.2-2.0); Eosinophils Absolute Auto 0.6 10^3/uL (0.0-0.7); Eosinophils Percent Auto 7.5 % (0.9-7.0); Hematocrit 28.7 % (36.0-48.0); Hemoglobin 8.8 g/dL (12.0-16.0); Immature Granulocytes Abs Auto 0.02 10^3/uL (0.00-0.03); Immature Granulocytes Pct Auto 0.2 % (0.0-0.5); Lymphocytes Absolute Auto 2.7 10^3/uL (1.2-3.8); Lymphocytes Percent Auto 31.9 % (20.5-60.0); Mean Corpuscular HGB Conc 30.7 g/dL (29.9-35.2); Mean Corpuscular Hemoglobin 22.6 pg (26.7-34.0); Mean Corpuscular Volume 73.8 fL (81.0-99.0); Mean Platelet Volume 9.4 fL (9.5-13.5); Monocytes Absolute Auto 0.7 10^3/uL (0.3-0.8); Monocytes Percent Auto 8.2 % (1.7-12.0); Neutrophils Absolute Auto 4.4 10^3/uL (1.4-6.5); Neutrophils Percent Auto 51.4 % (43.0-75.0); Platelet Count 355 10^3/uL (150-450); Red Blood Count 3.89 10^6/uL (4.20-5.40); Red Cell Distribution Width 16.3 % (11.0-15.0); White Blood Count 8.6 10^3/uL (4.0-11.0)
[2025-01-20 10:35] LABS: Free T3 1.46 pg/mL (2.18-3.98)
== END 2025-01-20 09:49 | disposition home or self-care (01) ==
PROVIDERS: PCP Family Medicine; Visit Provider Family Medicine
DX: L30.9 Dermatitis, unspecified (principal); M53.86 Other specified dorsopathies, lumbar region
CPT/HCPCS: 36415; 72110; 84481

== ENCOUNTER 2025-02-04 19:45 | Outpatient (OUT) | payer OTHER, SELFPAY | END 2025-02-04 19:46 | disposition home or self-care (01) | LOC: SLEEP 19:45 | PROVIDERS: PCP Family Medicine; Visit Provider Psychiatry & Neurology Neurology | DX: G47.33 Obstructive sleep apnea (adult) (pediatric) (principal) | CPT/HCPCS: 95810 ==

== ENCOUNTER 2025-04-07 20:57 | Outpatient (OUT) | payer OTHER, SELFPAY ==
--- OUTSIDE RECORDS SUMMARY | 2025-04-07 21:03 | XMS_ITS | CCD ---
Author Organization [facility] Care Team Providers Care Human Resources Designate Name Role Phone UNKNOWN, PROVIDER Unavailable Unavailable DESI MANJARREZ Unavailable Unavailable Desi Manjarrez Primary Care Provider Desi Manjarrez Primary Care Provider PREETI GARZON Attending Unavailable DESI MANJARREZ Primary Care Unavailable THEODORE ESCALANTE Attending Unavailable DESI MANJARREZ Primary Care Unavailable PREETI GARZON Admitting Unavailable PREETI GARZON Attending Unavailable DESI MANJARREZ Primary Care Unavailable PREETI GARZON Attending Unavailable THEODORE ESCALANTE Referring Unavailable DESI MANJARREZ Primary Care Unavailable PREETI GARZON Admitting Unavailable Desi Manjarrez Primary Care Provider Desi Manjarrez Primary Care Provider Desi Manjarrez Primary Care Provider ORB NG Attending Unavailable DESI MANJARREZ Primary Care Unavailable DESI MANJARREZ Primary Care Unavailable ITALIA VERNON Attending Unavailable DESI MANJARREZ Primary Care Unavailable JOSELINE CADET Attending Unavailable Desi Manjarrez MD Primary Care Provider DR DESI MANJARREZ Primary Care Unavailable DR GAEL PA Admitting Unavailable THIERNO, DR MAYO Attending Unavailable DR GAEL PA Consulting Unavailable KITTY JEWELL Consulting Unavailable Desi Manjarrez MD Primary Care Provider Desi Manjarrez MD Primary Care Provider Desi Manjarrez MD Primary Care Provider Antolin CASTREJON, Carlos Callahan Attending Unavailab Zachariah CASTREJON, Carlos Callahan Attending Unavailab Desi Navarrete MD Primary Care Unavaille Dangelo MD, Carlos Callahan Attending Unavailab Desi Navarrete MD Primary Care Provider [phone] BETZAIDA SIERRA I Attending Unavailable WHARRY, BETZAIDA I Referring Unavailable WHARRY, BETZAIDA I Admitting Unavailable VARUN, BETZAIDA I Attending Unavailable DANIELA ASTORGA Attending Unavailable YESENIA BENDER Attending Unavailable Desi Manjarrez Referring Unavailable Vick QUINTEROS Attending Unavailable Vick QUINTEROS Attending Unavailable Desi Manjarrez MD Primary Care Provider [phone] [place] SENIOR PROCESS ENGINEER-TMD TEACHER ASSISTANT, [place] Primary Care Provider NEHAL STOKES Attending Unavailable JOSSELINE, DESI M Primary Care Unavailable NEHAL STOKES Referring Unavailable GRASSICK, BROOKLYN Primary Care Unavailable GRASSICK, BROOKLYN Referring Unavailable GRASSICK, BROOKLYN Attending Unavailable GRASSICK, BROOKLYN Primary Care Unavailable GRASSICK, BROOKLYN Referring Unavailable GRASSICK, BROOKLYN Attending Unavailable GRASSICK, BROOKLYN Referring Unavailable GRASSICK, BROOKLYN Attending Unavailable GRASSICK, BROOKLYN Primary Care Unavailable GRASSICK, BROOKLYN Primary Care Unavailable GRASSICK, BROOKLYN Referring Unavailable GRASSICK, BROOKLYN Attending Unavailable GRASSICK, BROOKLYN Primary Care Unavailable GRASSICK, BROOKLYN Referring Unavailable GRASSICK, BROOKLYN Attending Unavailable GAEL SAM Attending Unavailable GRASSICK, BROOKLYN Primary Care Unavailable HOY, DESI M Primary Care Unavailable ARTIE BURDEN Attending Unavailable NGUYEN HERNANDEZ Attending UnavailNGUYEN Lynne Referring Unavailabl e HOY, DESI M Primary Care Unavailable NGUYEN HERNANDEZ Attending UnavailNGUYEN Lynne Referring Unavailabl e HOY, DESI M Primary Care Unavailable NGUYEN HERNANDEZ Attending Unavailabl NGUYEN Bustos Referring Unavailabl e HOY, DESI M Primary Care Unavailable HOY, DESI M Primary Care Unavailable IGNACIO ORTEGA Attending Unavailable NGUYEN HERNANDEZ Attending UnavailNGUYEN Lynne Referring Unavailabl e HOY, DESI M Primary Care Unavailable NGUYEN HERNANDEZ Referring Unavailabl e HOY, DESI M Primary Care Unavailable AARTI BUTCHER Referring Unavailable AARTI BUTCHER Attending Unavailable GRASSICK, BROOKLYN Primary Care Unavailable CHO, IOANA I Attending Unavailable SELF, SELF Referring Unavailable DESI MANJARREZ M Primary Care Unavailable CHO, IOANA I Attending Unavailable BETZAIDA SIERRA Referring Unavailable DESI MANJARREZ M Primary Care Unavailable Grassick SENIOR PROCESS ENGINEER-TMD TEACHER ASSISTANT, [place] Primary Care Provider GRASSICK, BROOKLYN Referring Unavailable GRASSICK, BROOKLYN Primary Care Unavailable GRASSICK, BROOKLYN Attending Unavailable GRASSICK, BROOKLYN Primary Care Unavailable SELF, SELF Referring Unavailable GRASSICK, BROOKLYN Attending Unavailable GRASSICK, BROOKLYN Primary Care Unavailable SELF, SELF Attending Unavailable SELF, SELF Referring Unavailable GRASSICK, BROOKLYN Referring Unavailable GRASSICK, BROOKLYN Primary Care Unavailable GRASSICK, BROOKLYN Attending Unavailable GRASSICK, BROOKLYN Referring Unavailable GRASSICK, BROOKLYN Primary Care Unavailable GRASSICK, BROOKLYN Attending Unavailable Allergies Allergy Classification Reported Allergen(s) Allergy Type Date of Onset Reaction(s) Facility Cephalosporins (antibiotic) (1 source) cefTRIAXone Drug Allergy 10-22-[address] [facility] Sulfonamides (antibiotic) (1 source) Sulfonamides (Antibiotic) Drug Allergy 05-13-20 [facility] (20 sources) cefTRIAXone; Translations: [Unknown] Drug Allergy 10-22-19 [facility] (6 sources) Sulfonamides (Antibiotic) Propensity to adverse reactions to drug 05-13-20 [place] (1 source) cefTRIAXone Drug Allergy 12-05-19 21 [facility] (1 source) Sulfamethoxazole / Trimethoprim Drug Allergy 06-18-20 20 [facility] (16 sources) Sulfonamides (Antibiotic) Propensity to adverse reactions to drug 05-13-20 [facility] (3 sources) Sulfonamides (Antibiotic); Translations: [SULFA (SULFONAMIDE ANTIBIOTICS)] Propensity to adverse reactions to drug (disorder) 04-23-20 23 [facility] (1 source) Sulfonamides (Antibiotic); Translations: [sulfa drugs] Propensity to adverse reactions (disorder) [facility] Repository Medications Current Medications Medication Drug Class(es) [...] infusion Start: 12-26-2021 lactated ringe rs infusion cetirizine hydrochloride 10 mg oral tablet (3 sources) Histamine-1 Receptor Antagonist Start: 12-17-2024 Cetirizine 10 MG tablet 12/17/2024 Active cholecalciferol 0.05 mg oral capsule (11 sources) Vitamin D Start: 11-27-2023 take 1 [...] Active cyclobenzaprine hydrochloride 10 mg oral tablet (6 sources) Muscle Relaxant Start: 11-29-2023 End: 11-29-2023 10 mg, Oral, ONCE, 1 dose, On Sun11/29/23 at 2215, Dispense to home- home pack Start: 11-29-2023 End: 02-27-2025 take 1 tablet by mouth three times daily as needed for muscle spasms Cyclobenzaprine 10 MG tablet Take 1 tablet by mouth 3 times daily as needed for Muscle spasms for up to 5 days. This medication can cause drowsiness. Do not drive or operate machinery while taking this medication. 15 tablet 11/29/2023 02/27/2025 Discontinued (Therapy completed) docusate sodium 100 mg oral capsule (5 sources) Start: 02-18-2025 take 1 capsule by mouth at bedtime Docusate 100 MG capsule Take 1 capsule by mouth at bedtime. 30 capsule 02/18/2025 Active Start: 02-18-2025 End: 02-18-2025 take 1 dose by mouth once 100 mg, Oral, ONCE, 1 dose, On Sun02/18/25 at 0115 doxepin hydrochloride 10 mg oral capsule (3 sources) Tricyclic Antidepressant Start: 01-12-2025 Doxepin 10 MG capsule 01/12/2025 Active drospirenone 3 mg / ethinyl estradiol 0.03 mg oral tablet (3 sources) Progestin, Estrogen Start: 05-13-2020 take 1 tablet by mouth once daily drospirenone-ethin yl estradiol (LEO 28) 3-0.03 MG TABS Indications: Screening for cervical cancer Take 1 tablet by mouth daily 1 packet 12 05/13/2020 Active escitalopram 10 mg oral tablet (12 sources) Serotonin Reuptake Inhibitor Start: 09-02-2024 End: 03-20-2025 take 1 tablet by mouth once daily Escitalopram 10 MG tablet Take 1 tablet by mouth daily. 30 tablet 02/18/2025 Active Start: 05-28-2023 take 1 tablet by val once daily escitalopram (LEXAPRO) 10 MG tablet Indications: Adjustment disorder with depressed mood Take 1 tablet by mouth daily 30 tablet 11 05/28/2023 Active ferrous sulfate 325 mg oral tablet (5 sources) Start: 02-18-2025 End: 03-20-2025 take 1 tablet by mouth once daily ferrous sulfate 325 (65 Fe) MG tablet Take 1 tablet by mouth daily. 30 tablet 02/18/2025 Active Start: 02-18-2025 End: 02-18-2025 take 1 dose by mouth once 325 mg, Oral, ONCE, 1 dose, On Sun02/18/25 at 0045 fluconazole 100 mg oral tablet (6 sources) [...] 07/16/2019 Active ibuprofen 800 mg oral tablet (20 sources) Nonsteroidal Anti-inflammatory Drug Start: 11-20-2022 End: 02-27-2025 take 1 tablet by mouth every eight [...] (TORADOL) injectio n 30 mg levothyroxine sodium 0.175 mg oral tablet (14 sources) l-Thyroxine Start: 10-15-2024 levothyroxine 175 MCG tablet 10/15/2024 Active Start: 01-22-2024 take 1 tablet by val th once daily Levothyroxine 150 MCG tablet Take 1 tablet by mouth daily. 01/22/2024 Active meloxicam 15 mg oral tablet (3 sources) Nonsteroidal Anti-inflammatory Drug Start: 01-20-2025 Meloxicam 15 MG tablet 01/20/2025 Active 2 ml metoclopramide 5 mg/ml prefilled [...] mL syringe. (Note: dilution is 0.04 mg/mL) &nbsp ;Give 0.08 mg (2 mL of special dilution), slow IV push, repeat up to 0.4 mg (10 mL) or until patient is responsive to physical stimulation and respiratory rate is equal to or greater than 6 breaths/min.&nbsp ; Continue to observe, if no response within 3 minutes of administration of 0.4 mg (10 mL) total, repeat dose (0.4 mg as administered previously).&nbsp ;Concentration 0.04 mg/mL PACU only nitrofurantoin, macrocrystals 25 mg / nitrofurantoin, monohydrate 75 mg oral capsule (4 sources) Nitrofuran Antibacterial Start: 05-11-2020 End: 08-25-2020 take 1 capsule by mouth twice daily nitrofurantoin, macrocrystal-mono hydrate, (MACROBID) 100 MG capsule TAKE 1 CAPSULE [...] sources) Start: 09-28-2022 take 1 tablet by mouth once daily Vit-Fe Fumarate-FA ( VITAMINS) 28-0.8 MG TABS Take 1 tablet by mouth daily 90 tablet 3 09/28/2022 Active Nhmridvqi-Esutcrvfa-Jq rethind 40-1-0.5 MG TABS (7 sources) Start: 07-10-2023 take 1 tablet by mouth once daily Relugolix-Estrad iol-Norethind 40-1-0.5 MG TABS Take 1 tablet by mouth daily 30 tablet 5 07/10/2023 Active sulfamethoxazole 800 mg / trimethoprim 160 mg oral tablet (6 sources) Dihydrofolate Reductase Inhibitor Antibacterial, Sulfonamide Antimicrobial Start: 04-25-2020 End: 04-25-2020 sulfamethoxazole -trimethoprim (BACTRIM DS;SEPTRA DS) 800-160 MG per tablet [...] tablet 0 07/28/2019 08/02/2019 Discontinued (Therapy completed) tranexamic acid 650 mg oral tablet (1 source) Antifibrinolytic Agent Start: 03-06-2025 End: 03-11-2025 take 2 tablets by mouth three times daily, then take 2 tablets by mouth three times daily tranexamic acid (LYSTEDA) 650 MG TABS tablet Take 2 tablets by mouth 3 times daily for 5 days Take 2 tablets by mouth 3 times daily for up to 5 days. Stop taking if bleeding stops. 30 tablet 03/06/2025 03/11/2025 Active triamcinolone acetonide 1 mg/ml topical cream (3 sources) Corticosteroid Start: 01-20-2025 triamcinolone 0.1 % Cream cream 01/20/2025 Active Completed/Discontinued Medications Medication Drug Class(es) Dates Sig [...] 08-02-2019 acetaminophen (TYLENOL) tabl et 975 mg [id number] 200 actuat albuterol 0.09 mg/actuat metered dose [...] mg docusate sodium 50 mg / sennosides, jail 8.6 mg oral tablet (1 source) Start: [...] chloride SA (K-DUR,KLOR-CON) CR tablet 40 mEq Mycnpifjc-Xsdnqpmed-Njtfmbio d (Myfembree) 40-1-0.5 MG tablet (6 sources) Start: 07-10-2023 End: 03-27-2025 Noxdolqlz-Cmtzxvndn-Tsxkmquv d (Myfembree) 40-1-0.5 MG tablet Take 40 mg by mouth daily. 07/10/2023 03/27/2025 Discontinued (Therapy completed) Start: 07-10-2023 Relugolix-Estr adiol-Norethind (Myfembree) 40-1-0.5 MG tablet Take 40 mg by mouth daily. 07/10/2023 Active 50 ml sodium chloride 9 mg/m l injection (19 sources) Start: 03-06-2025 End: 03-06-2025 1,000 mL, IntraVENous, at 98 3.6 mL/hr, Administer over 61 Minutes, ONCE, On Sun03/06/25 at 1945, For 1 dose, For adult patients weighing > 55 kg (120 lbs.) and less than Start: 02-18-2024 take 1 dose intraven ously twice daily 5-40 mL, IntraVENous, EVERY 12 [...] chloride 0.9% IV solu tion 1,000 mL tamsulosin hydrochloride 0.4 mg oral capsule (9 sources) alpha-Adrenergic Merle Start: 08-02-2019 End: 11-20-2022 take 1 [...] Translations: [ACUTE BRONCHITIS UNSPECIFIED] Onset: 08-04-2022 Episodic Administrative/social admission (2 sources) Encounter for pre-employment examination; Translations: [Encounter for pre-employment examination] Onset: 02-16-2025 Episodic Anxiety disorders (1 source) Generalized anxiety disorder; Translations: [Generalized anxiety disorder] 02-27-2025 Chronic Benign neoplasm of uterus (1 source) Uterine leiomyoma; Translations: [Leiomyoma of uterus, unspecified] 02-18-2024 Episodic Deficiency and other anemia (9 sources) Iron deficiency anemia; Translations: [Iron deficiency anemia, unspecified] Onset: 02-27-2025 02-18-2025 Episodic Deficiency and other anemia (1 source) Anemia; Translations: [Anemia, unspecified] 03-05-2025 Episodic Deficiency and other anemia (2 sources) Anemia, unspecified; Translations: [Anemia, unspecified] Onset: 03-05-2025 Episodic Deficiency and other anemia (2 sources) Iron deficiency anemia, unspecified; Translations: [Iron deficiency anemia, unspecified] Onset: 02-17-2025 Episodic Hemorrhage during ; abruptio placenta; placenta previa (1 source) Bleeding from female genital tract during ; Translations: [Antepartum hemorrhage, unspecified, unspecified trimester] Episodic Malaise and fatigue (6 sources) Fatigue; Translations: [Other fatigue] Onset: 02-27-2025 02-27-2025 Episodic Menstrual disorders (15 sources) Menorrhagia; Translations: [Excessive and frequent menstruation with regular cycle] Onset: 02-18-2024 Chronic Mood disorders (3 sources) Depressive disorder; Translations: [Depression] 02-27-2025 Chronic Mycoses (1 source) Candidiasis of vagina; Translations: [Vaginal yeast infection] Episodic Neoplasms of unspecified nature or uncertain behavior (1 source) Neoplasm of unspecified behavior of endocrine glands and other parts of nervous system; Translations: [Neoplasm of unspecified behavior of endocrine glands and other parts of nervous system] Onset: 12-06-2023 Episodic Other aftercare (1 source) Medication therapy changed too rapidly; Translations: [Other remote computer terminal operator (current) drug therapy] 02-18-2025 Episodic Other aftercare (2 sources) Other remote computer terminal operator (current) drug therapy; Translations: [Other remote computer terminal operator (current) drug therapy] Onset: 02-17-2025 Episodic Other connective tissue disease (1 source) Muscle pain; Translations: [Myalgia, other site] 02-27-2025 Episodic Other connective tissue disease (2 sources) Myalgia, other site; Translations: [Myalgia, other site] Onset: 02-27-2025 Episodic Other diseases of kidney and ureters (1 source) Hydronephrosis due to ureteral obstruction; Translations: [Ureteral stone with hydronephrosis] Other female genital disorders (1 source) Abnormal uterine bleeding; Translations: [DUB (dysfunctional uterine bleeding)] Chronic Other female genital disorders (1 source) Abnormal vaginal bleeding; Translations: [Abnormal uterine and vaginal bleeding, unspecified] 03-06-2025 Chronic Other female genital disorders (1 source) Abnormal uterine and vaginal bleeding, unspecified; Translations: [Abnormal uterine and vaginal bleeding, unspecified] Onset: 03-06-2025 Chronic Other female genital disorders (1 source) Heavy episode of vaginal bleeding; Translations: [Episode of heavy vaginal bleeding] Episodic Other lower respiratory disease (3 sources) Shortness of breath; Translations: [SHORTNESS OF BREATH] Onset: 08-02-2022 Episodic Other nervous system disorders (1 source) Other acute postprocedural pain; Translations: [Other acute postprocedural pain] Onset: 01-21-2024 Episodic Other nervous system disorders (1 source) Postoperative pain ; Translations: [Other acute postprocedural pain] 02-18-2024 Episodic Other nutritional; endocrine; and metabolic disorders (3 sources) Obese class II; Translations: [Obesity, Class II, BMI 35-39.9] Onset: 02-27-2025 02-27-2025 Chronic Poisoning by other medications and drugs (1 source) Allergic reaction to drug; Translations: [Allergic reaction to drug, initial encounter] Episodic Residual codes; unclassified (1 source) Pain, unspecified; Translations: [Pain, unspecified] Onset: 11-24-2023 Episodic Residual codes; unclassified (1 source) FH: Autoimmune disease; Translations: [Family history of diseases of the blood and blood-forming organs and certain disorders involving the immune mechanism] 02-27-2025 Episodic Residual codes; unclassified (2 sources) Family history of diseases of the blood and blood-forming organs and certain disorders involving the immune mechanism; Translations: [Family history of diseases of the blood and blood-forming organs and certain disorders involving the immune mechanism] Onset: 02-27-2025 Episodic Spondylosis; intervertebral disc disorders; other back problems (3 sources) Dorsalgia, unspecified; Translations: [Spasm of back muscles] Onset: 09-06-2017 11-29-2023 Episodic Thyroid disorders (10 sources) 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 [...] Other Problems Problem Classification Problem Date Documented Da te Episodic/Chronic Calculus of urinary tract (9 sources) Kidney stone; Translations: [Ureteric stone] Onset: 10-21-2019 10-21-2019 Episodic Deficiency and other anemia (8 sources) Iron deficiency anemia secondary to inadequate dietary iron intake; Translations: [Other iron deficiency anemias] Onset: 04-22-2021 10-24-2022 Episodic Mood disorders (3 sources) Mood disorders Onset: 02-27-2025 02-27-2025 Other connective tissue disease (8 sources) Fibromyalgia; Translations: [Fibromyalgia] Onset: 09-06-2017 10-24-2022 Episodic Other and delivery including normal (18 sources) Normal ; Translations: [Encounter for supervision of other normal , unspecified trimester] Onset: 12-12-2014 06-06-2015 Episodic Other screening for suspected conditions (not mental disorders or infectious disease) (7 sources) Cancer cervix screening status; Translations: [Encounter for screening for malignant neoplasm of cervix] Onset: 06-17-2024 06-17-2024 Episodic Spontaneous (16 sources) Incomplete miscarriage; Translations: [Incomplete spontaneous without complication] Onset: 11-20-2022 Episodic Unclassified (4 sources) Onset: 07-09-2024 07-09-2024 Results Test Name Value Interpretation Reference Range Facility CBC(NO DIFF)on 04-01-2025 Erythrocyte distribution width (RBC) [Ratio] 19.0 % High 11.5-14.5 [facility] Comment on above: Performed By: #### H EMOG #### Testing performed at [address] [address] Hematocrit (Bld) [Volume fraction] 27.8 % Low 36.0-48.0 [facility] Comment on above: Performed By: #### H EMOG #### Testing performed at [address] [address] Hemoglobin (Bld) [Mass/Vol] 9.0 g/dL Low 12.0-16.0 [facility] Comment on above: Performed By: #### H EMOG #### Testing performed at [address] [address] MCH (RBC) [Entitic mass] 22.7 pg Low 26.0-35.0 [facility] Comment on above: Performed By: #### H EMOG #### Testing performed at [address] [address] MCHC (RBC) [Mass/Vol] 32.3 g/dL Normal 27.0-37.0 [facility] Comment on above: Performed By: #### H EMOG #### Testing performed at [address] [address] MCV (RBC) [Entitic vol] 70.4 fL Low 80.0-100.0 [facility] Comment on above: Performed By: #### H EMOG #### [place] [address] Platelet mean volume (Bld) [Entitic vol] 8.5 fL Normal 7.4-11.0 [facility] Comment on above: Result Comment: Test ing performed at [place] [address] Performed By: #### H EMOG #### [place] [address] Platelets (Bld) [#/Vol] 345 10*3/uL Normal 130-400 [facility] Comment on above: Performed By: #### H EMOG #### [place] [address] RBC (Bld) [#/Vol] 3.95 10*6/uL Low 4.0-5.4 [facility] Comment on above: Performed By: #### H EMOG #### [place] [address] WBC (Bld) [#/Vol] 9.0 10*3/uL Normal 3.6-11.0 [facility] Comment on above: Performed By: #### H EMOG #### [place] [address] IRON PROFILEon 04-01-2025 IRON BINDING 454 UG/DL High 250-450 [facility] Comment on above: Performed By: #### F EPRO #### [place] [address] TRANSFERRIN SATURATION,CALCULATE D 10 % Normal [facility] Comment on above: Result Comment: Test ing performed at [place] [address] Performed By: #### F EPRO #### [place] [address] Iron [Mass/Vol] 44 ug/dL Normal 37-170 [facility] Comment on above: Result Comment: Test ing performed at [place] [address] Performed By: #### F EPRO #### Testing performed at [address] [address] DNA analysis discrete [facility] ce variation panel [employer] (Bld/Tiss)on 03-11-2025 Disclaimer See Notes [facility] Comment on above: Result Comment: This test was developed and validated by [facility]. This test has not been cleared or approved by the [place] Food and Drug Administration (FDA). The [facility] laboratory is accredited by the [employer] ([employer]) and certified under the Clinical Laboratory Improvement Amendments (CLIA #: [id number]) to perform high-complexity clinical tests. This test is used for clinical purposes. It should not be regarded as investigational or for research. Performed By: #### 5 5208-3 #### [facility] (DEFAULT) [address] [address] Genes Tested See Notes [facility] Comment on above: Result Comment: APOB , BRCA1, BRCA2, EPCAM, LDLR, LDLRAP1, PCSK9, PMS2, MLH1, MSH2, MSH6 Performed By: #### 5 5208-3 #### [facility] (DEFAULT) [address] [address] GENETIC ANALYSIS REPORT [facility] Comment on above: Result Comment: No p athogenic or likely pathogenic variants were detected in the genes analyzed by this test.Genetic test results should be interpreted in the context of an individual's personal medical and family history. Alteration to medical management is NOT recommended based solely on this result. Clinical correlation is advised.Additional Considerations- This is a screening test; individuals may still carry pathogenic or likely pathogenic variant(s) in the tested genes that are not detected by this test.- For individuals at risk for these or other related conditions based on factors including personal or family history, diagnostic testing is recommended.- The absence of pathogenic or likely pathogenic variant(s) in the analyzed genes, while reassuring, does not eliminate the possibility of a hereditary condition; there are other variants and genes associated with heart disease and hereditary cancer that are not included in this test. Performed By: #### 5 5208-3 #### [facility] (DEFAULT) [address] [address] Genetic Diseases Assessed [facility] Comment on above: Result Comment: This is a screening test and does not detect all pathogenic or likely pathogenic variant(s) in the tested genes; diagnostic testing is recommended for individuals with a personal or family history of heart disease or hereditary cancer. [place] [facility] Population Screen is a screening test that analyzes 11 genes related to hereditary breast and ovarian cancer (HBOC) syndrome, Mccauley syndrome, and familial hypercholesterolemia. This test only reports clinically significant pathogenic and likely pathogenic variants but does not report variants of uncertain significance (VUS). In addition, analysis of the PMS2 gene excludes exons 11-15, which overlap with a known pseudogene (PMS2CL). Performed By: #### 5 5208-3 #### [facility] (DEFAULT) [address] [place] [address] Interpretation Methods and Limitations See Notes Normal [facility] Comment on above: Result Comment: Extr acted DNA is enriched for targeted regions and then sequenced using the [facility] Exome+ (R) assay on an Illumina DNA sequencing system. Data is then aligned to a modified version of GRCh38 and all genes are analyzed using the Sporthold transcript and Sporthold Plus Clinical transcript, when available. Small variant calling is completed using a customized version of [employer]'s [employer] software, augmented by a proprietary small variant caller for difficult variants. Copy number variants (CNVs) are then called using a proprietary bioinformatics pipeline based on depth analysis with a comparison to similarly sequenced samples. Analysis of the PMS2 gene is limited to exons 1-10. The interpretation and reporting of variants in APOB, PCSK9, and LDLR is specific to familial hypercholesterolemia; variants associated with hypobetalipoproteinemia are not included. Interpretation is based upon guidelines published by the [employer] (ACMG), the Association for Molecular Pathology (AMP) or their modification by ClinGen Variant Curation Expert Panels when available and/or review of previous clinical assertions available in the ClinVar database. Interpretation is limited to the transcripts indicated on the report and +/- 10 bp into intronic regions, except as noted below. [place] variant classifications include pathogenic, likely pathogenic, variant of uncertain significance (VUS), likely benign, and benign. Only variants classified as pathogenic and likely pathogenic are included in the report. All reported variants are confirmed through secondary manual inspection of DNA sequence data or orthogonal testing. Risk estimations and management guidelines included in this report are based on analysis of primary literature and recommendations of applicable professional societies, and should be regarded as approximations.Based on validation studies, this assay delivers > 99% sensitivity and specificity for single nucleotide variants and insertions and deletions (indels) up to 20 bp. Larger indels and complex variants are also reported but sensitivity may be reduced. Based on validation studies, this assay delivers > 99% sensitivity to multi-exon CNVs and > 90% sensitivity to single-exon CNVs. This test may not detect variants in challenging regions (such as short tandem repeats, homopolymer runs, and segment duplications), sub-exonic CNVs, chromosomal aneuploidy, or variants in the presence of mosaicism. Phasing will be attempted and reported, when possible. Structural rearrangements such as inversions, translocations, and gene conversions are not tested in this assay unless explicitly indicated. Additionally, deep intronic, promoter, and enhancer regions may not be covered. It is important to note that this is a screening test and cannot detect all disease-causing variants. A negative result does not guarantee the absence of a rare, undetectable variant in the genes analyzed; consider using a diagnostic test if there is significant personal and/or family history of one of the conditions analyzed by this test. Any potential incidental findings outside of these genes and conditions will not be identified, nor reported. The results of a genetic test may be influenced by various factors, including bone marrow transplantation, blood transfusions, or in rare cases, hematolymphoid neoplasms.Gene Specific Notes:APOB: analysis is limited to c.24768I>A and c.45164W>T; BRCA1: sequencing analysis extends to CDS +/-20 bp; BRCA2: sequencing analysis extends to CDS +/-20 bp. EPCAM: analysis is limited to CNVof exons 8-9; LDLR: analysis includes CNV ofthe promoter; MLH1: analysis includes CNV of the promoter; PMS2: analysis is limited to exons 1-10. Brian Iniguez, PhD, FACMGG [email or web address] Performed By: #### 5 5208-3 #### [facility] (DEFAULT) [address] [place] [address] Overall Interpretation Normal [facility] Comment on above: Result Comment: Nega tive No pathogenic (disease-causing) genetic variants related to mccauley syndrome, hereditary breast and ovarian cancer (BRCA1 and BRCA2 only), or familial hypercholesteremia were detected in this screening test.? ? Based on your personal and family medical history, additional risk assessment or genetic testing may be appropriate for you.?? ? Please follow up with your healthcare provider if you have additional questions or concerns and continue regular health maintenance and screening.? Performed By: #### 5 5208-3 #### [facility] (DEFAULT) [address] [place] [address] Sequencing Location See Notes Normal [facility] Comment on above: Result Comment: Sequ encing done at [place] [address] [facility], [address], [place] [address] (CLIA# [id number]) Performed By: #### 5 5208-3 #### [facility] (DEFAULT) [address] [place] [address] Chlamydia/GC,DNA Ampon 03-09 Chlamydia Probe Negative Normal NEG [facility] Comment on above: Result Comment: CHLA [...] target. Performed By: #### S WCGP #### [facility] [address] [place], [place] [id number] Swimming Pool Attendant: Prasanna Michaels MD Gonorrhea Probe Negative Normal NEG [facility] Comment on above: Result Comment: NEIS [...] target. Performed By: #### S WCGP #### [facility] [address] [place] [address] Swimming Pool Attendant: Prasanna Michaels MD CBC with Auto Differentialon 03-06-2025 Basophils (Bld) [#/Vol] 0.05 10*3/uL [facility] Basophils/100 WBC (Bld) 1 % 0 - 2 % [facility] Eosinophils (Bld) [#/Vol] 0.35 10*3/uL [facility] Eosinophils/100 WBC (Bld) 4 % 1 - 4 % [facility] Erythrocyte distribution width (RBC) [Ratio] 18 % High 11.8 - 14.4 % [facility] Hematocrit (Bld) [Volume fraction] 29.8 % Low 36.3 - 47.1 % [facility] Hemoglobin (Bld) [Mass/Vol] 8.9 g/dL Low 11.9 - 15.1 g/dL [facility] Immature granulocytes (Bld) [#/Vol] [facility] Immature granulocytes/100 WBC (Bld) 0 % 0 [facility] Interpretation and review of laboratory results Abnormal [facility] Lymphocytes/100 WBC (Bld) 33 % 24 - 43 % [facility] Lymphocytes/100 WBC (Bld) 2.76 % [facility] MCH (RBC) [Entitic mass] 22.3 pg Low 25.2 - 33.5 pg [facility] MCHC (RBC) [Mass/Vol] 29.9 g/dL 28.4 - 34.8 g/dL [facility] MCV (RBC) [Entitic vol] 74.7 fL Low 82.6 - 102.9 fL [facility] Monocytes/100 WBC (Bld) 9 % 3 - 12 % [facility] Monocytes/100 WBC (Bld) 0.74 % [facility] Neutrophils/100 WBC (Bld) 53 % 36 - 65 % [facility] Nucleated RBC/100 WBC (Bld) [Ratio] 0 % 0.0 per 100 WBC [facility] Platelet mean volume (Bld) [Entitic vol] 10.3 fL 8.1 - 13.5 fL [facility] Platelets (Bld) [#/Vol] 357 10*3/uL [facility] RBC (Bld) [#/Vol] 3.99 10*6/uL 3.95 - 5.1 1 m/uL [facility] Segmented neutrophils/100 WBC (Bld) 4.4 % [facility] WBC other (Bld) [#/Vol] 8.3 [facility] CBC with Diffon 03-06-2025 Abs. Basophil 0.05 k/uL Normal 0.00-0.20 [facility] Comment on above: Performed By: #### C DP, CMPX #### [facility] [address] [place] [address] [place]. [place], [place] [id number] Swimming Pool Attendant: Chandler Mccall MD Abs.Imm.Granulocyte <0.03 Normal 0.00-0.30 [facility] Comment on above: Performed By: #### C DP, CMPX #### [address] [place], [facility]83 Swimming Pool Attendant: Chandler Mccall MD Abs.Neutrophil (Seg) 4.40 k/uL Normal 1.50-8.10 [facility] Comment on above: Performed By: #### C DP, CMPX #### [address] [place], [place] [id number] Swimming Pool Attendant: Chandler Mccall MD Basophils/100 WBC (Bld) 1 % Normal 0-2 [facility] Comment on above: Performed By: #### C DP, CMPX #### [address] [place], [place] [id number] Swimming Pool Attendant: Chandler Mccall MD Eosinophils (Bld) [#/Vol] 0.35 10*3/uL Normal 0.00-0.44 [facility] Comment on above: Performed By: #### C DP, CMPX #### [address] [place] [address] Swimming Pool Attendant: Chandler Mccall MD Eosinophils/100 WBC (Bld) 4 % Normal 1-4 [facility] Comment on above: Performed By: #### C DP, CMPX #### [facility] [address] [place] [address] Swimming Pool Attendant: Chandler Mccall MD Erythrocyte distribution width (RBC) [Ratio] 18.0 % High 11.8-14.4 [facility] Comment on above: Performed By: #### C DP, CMPX #### [facility] [address] [place], [place] [address] Swimming Pool Attendant: Chandler Mccall MD Hematocrit (Bld) [Volume fraction] 29.8 % Low 36.3-47.1 [facility] Comment on above: Performed By: #### C DP, CMPX #### [address] [place] [address] Swimming Pool Attendant: Chanlder Mccall MD Hemoglobin (Bld) [Mass/Vol] 8.9 g/dL Low 11.9-15.1 [facility] Comment on above: Performed By: #### C DP, CMPX #### [address] [place] [address] Swimming Pool Attendant: Chandler Mccall MD Immature granulocytes/100 WBC (Bld) 0 % Normal 0 [facility] Comment on above: Performed By: #### C DP, CMPX #### [address] [place], [place] [address] Swimming Pool Attendant: Chandler Mccall MD Lymphocytes (Bld) [#/Vol] 2.76 10*3/uL Normal 1.10-3.70 [facility] Comment on above: Performed By: #### C DP, CMPX #### [address] [place] [id number] Swimming Pool Attendant: Chandler Mccall MD Lymphocytes/100 WBC (Bld) 33 % Normal 24-43 [facility] Comment on above: Performed By: #### C DP, CMPX #### [facility] [address] [place], [place] [id number] Swimming Pool Attendant: Chandler Mccall MD MCH (RBC) [Entitic mass] 22.3 pg Low 25.2-33.5 [facility] Comment on above: Performed By: #### C DP, CMPX #### [address] [place], [place] [id number] Swimming Pool Attendant: Chandler Mccall MD MCHC (RBC) [Mass/Vol] 29.9 g/dL Normal 28.4-34.8 [facility] Comment on above: Performed By: #### C DP, CMPX #### [address] [place], [place] [address]83 Swimming Pool Attendant: Chandler Mccall MD MCV (RBC) [Entitic vol] 74.7 fL Low 82.6-102.9 [facility] Comment on above: Performed By: #### C DP, CMPX #### [address] [place], [facility]83 Swimming Pool Attendant: Chandler Mccall MD Monocytes (Bld) [#/Vol] 0.74 10*3/uL Normal 0.10-1.20 [facility] Comment on above: Performed By: #### C DP, CMPX #### [address] [place], [place] [address] Swimming Pool Attendant: Chandler Mccall MD Monocytes/100 WBC (Bld) 9 % Normal 3-12 [facility] Comment on above: Performed By: #### C DP, CMPX #### [address] [place], [facility]83 Swimming Pool Attendant: Chandler Mccall MD Neutrophil (Seg) 53 % Normal 36-65 [facility] Comment on above: Performed By: #### C DP, CMPX #### [facility] [address] [place], [facility]83 Swimming Pool Attendant: Chandler Mccall MD NRBC Automated 0.0 per 100 WBC Normal 0.0 [facility] Comment on above: Performed By: #### C DP, CMPX #### [facility] [address] [place], [place] [id number] Swimming Pool Attendant: Chandler Mccall MD Platelet mean volume (Bld) [Entitic vol] 10.3 fL Normal 8.1-13.5 [facility] Comment on above: Performed By: #### C DP, CMPX #### [facility] [address] [place], [place] [id number] Swimming Pool Attendant: Chandler Mccall MD Platelets (Bld) [#/Vol] 357 10*3/uL Normal 138-453 [facility] Comment on above: Performed By: #### C DP, CMPX #### [address] [place], [place] [address]994483 Swimming Pool Attendant: Chandler Mccall MD RBC (Bld) [#/Vol] 3.99 10*6/uL Normal 3.95-5.11 [facility] Comment on above: Performed By: #### C DP, CMPX #### [address] [place], [place] 27[address]83 Swimming Pool Attendant: Chandler Mccall MD WBC (Bld) [#/Vol] 8.3 10*3/uL Normal 3.5-11.3 [facility] Comment on above: Performed By: #### C DP, CMPX #### [address] [place], [place] 5639783 Swimming Pool Attendant: Chandler Mccall MD Comp Metabolic Pr/rfx MGon 0 03-06-2025 Albumin [Mass/Vol] 4.1 g/dL Normal 3.5-5.2 [facility] Comment on above: Performed By: #### C DP, CMPX #### [address] [place] [address] Swimming Pool Attendant: Chandler Mccall MD Albumin/Glob Ratio 1.2 Normal 1.0-2.5 [facility] Comment on above: Performed By: #### C DP, CMPX #### [facility] [address] [place] [address] Swimming Pool Attendant: Chandler Mccall MD Alkaline Phos 90 U/L Normal 35-104 [facility] Comment on above: Performed By: #### C DP, CMPX #### [facility] [address] [place], [place] 7[address]83 Swimming Pool Attendant: Chandler Mccall MD ALT [Catalytic activity/Vol] 14 U/L Normal 10-35 [facility] Comment on above: Performed By: #### C DP, CMPX #### [facility] [address] [place], [place] [phone] Swimming Pool Attendant: Chandler Mccall MD Anion gap [Moles/Vol] 11 mmol/L Normal 9-16 [facility] Comment on above: Performed By: #### C DP, CMPX #### [facility] [address] [place] [address] Swimming Pool Attendant: Chandler Mccall MD AST [Catalytic activity/Vol] 18 U/L Normal 10-35 [facility] Comment on above: Performed By: #### C DP, CMPX #### [facility] [address] [place], [place] [id number] Swimming Pool Attendant: Chandler Mccall MD Bilirubin [Mass/Vol] mg/dL Normal 0.00-1.20 [facility] Comment on above: Performed By: #### C DP, CMPX #### [facility] [address] [place] [address] Swimming Pool Attendant: Chandler Mccall MD BUN/CRE Ratio 13 Normal 9-20 [facility] Comment on above: Performed By: #### C DP, CMPX #### [facility] [address] [place], [place] 618[address]83 Swimming Pool Attendant: Chandler Mccall MD Calcium [Mass/Vol] 8.7 mg/dL Normal 8.6-10.4 [facility] Comment on above: Performed By: #### C DP, CMPX #### [facility] [address] [place], [place] 1838183 Swimming Pool Attendant: Chandler Mccall MD Chloride [Moles/Vol] 106 mmol/L Normal 98-107 [facility] Comment on above: Performed By: #### C DP, CMPX #### [facility] [address] [place], [place] 868[address]83 Swimming Pool Attendant: Chandler Mccall MD CO2 [Moles/Vol] 21 mmol/L Normal 20-31 [facility] Comment on above: Performed By: #### C DP, CMPX #### [facility] [address] [place], [place] 2435383 Swimming Pool Attendant: Chandler Mccall MD Creatinine [Mass/Vol] 0.8 mg/dL Normal 0.50-0.90 [facility] Comment on above: Performed By: #### C DP, CMPX #### [facility] [address] [place], [place] 656[address]83 Swimming Pool Attendant: Chandler Mccall MD GFR/1.73 sq M.predicted among non-blacks MDRD (S/P/Bld) [Vol rate/Area] mL/min/{1.73_m2} Normal >60 [facility] Comment on above: Result Comment: These results are not intended for use [...] following therapy that affects renal tubular secretion. Performed By: #### C DP, CMPX #### [facility] [address] [place], [place] 116[address]83 Swimming Pool Attendant: Chandler Mccall MD Glucose [Mass/Vol] 79 mg/dL Normal 74-99 [facility] Comment on above: Performed By: #### C DP, CMPX #### [facility] [address] [place], [place] 1962583 Swimming Pool Attendant: Chandler Mccall MD Potassium [Moles/Vol] 3.7 mmol/L Normal 3.7-5.3 [facility] Comment on above: Performed By: #### C DP, CMPX #### [facility] [address] [place], [place] 2332983 Swimming Pool Attendant: Chandler Mccall MD Protein [Mass/Vol] 7.4 g/dL Normal 6.6-8.7 [facility] Comment on above: Performed By: #### C DP, CMPX #### [facility] [address] [place], [place] 1892583 Swimming Pool Attendant: Chandler Mccall MD Sodium [Moles/Vol] 138 mmol/L Normal 136-145 [facility] Comment on above: Performed By: #### C DP, CMPX #### [facility] [address] [place], [place] 7597483 Swimming Pool Attendant: Chandler Mccall MD Urea nitrogen [Mass/Vol] 10 mg/dL Normal 6-20 [facility] Comment on above: Performed By: #### C DP, CMPX #### [facility] [address] [place] [address] Swimming Pool Attendant: Chandler Mccall MD Comprehensive Metabolic Pane l w/ Reflex to MGon 03-06-2025 Albumin [Mass/Vol] 4.1 g/dL 3.5 - 5.2 g/dL [facility] Albumin/Globulin [Mass ratio] 1.2 {ratio} 1.0 - 2.5 [facility] ALP [Catalytic activity/Vol] 90 U/L 35 - 104 U/L [facility] ALT [Catalytic activity/Vol] 14 U/L 10 - 35 U/L [facility] Anion gap [Moles/Vol] 11 mmol/L 9 - 16 mmol/L [facility] AST [Catalytic activity/Vol] 18 U/L 10 - 35 U/L [facility] Bilirubin [Mass/Vol] mg/dL 0.00 - 1.20 mg/dL [facility] Calcium [Mass/Vol] 8.7 mg/dL 8.6 - 10. 4 mg/dL [facility] Chloride [Moles/Vol] 106 mmol/L 98 - 10 7 mmol/L [facility] CO2 [Moles/Vol] 21 mmol/L 20 - 31 mmol/L [facility] Creatinine [Mass/Vol] 0.8 mg/dL 0.50 - 0.90 mg/dL [facility] Est, Glom Filt Rate - PINF [facility] Comment on above: These results are not [...] that affects renal tubular secretion. Glucose [Mass/Vol] 79 mg/dL 74 - 99 mg/dL [facility] Potassium [Moles/Vol] 3.7 mmol/L 3.7 - 5.3 mmol/L [facility] Protein [Mass/Vol] 7.4 g/dL 6.6 - 8.7 g/dL [facility] Sodium [Moles/Vol] 138 mmol/L 136 - 145 mmol/L [facility] Urea nitrogen [Mass/Vol] 10 mg/dL 6 - 20 mg/dL [facility] Urea nitrogen/Creatinine [Mass ratio] 13 mg/mg 9 - 20 [facility] HCG Qualitative, Serumon HCG ( test) Ql Negative NEGATIVE [facility] Comment on above: Specimens with hCG l evels near the threshold of the test (25 mIU/mL) may give a negative or indeterminate result. In such cases, another test should be performed with a new specimen in 48-72 hours. If early is suspected clinically in this setting, correlation with quantitative serum b-hCG level is suggested. [facility] HCG Screen, Bloodon 03-06-20 25 HCG Screen, Blood Negative Normal NEG [facility] Comment on above: Result Comment: Spec imens with hCG levels near the threshold of the test (25 mIU/mL) may give a negative or indeterminate result. In such cases, another test should be performed with a new specimen in 48-72 hours. If early is suspected clinically in this setting, correlation with quantitative serum b-hCG level is suggested. Performed By: #### H CG #### [facility] [address] [place], [place] [id number] Swimming Pool Attendant: Chandler Mccall MD Trichomonas/Wet Prepon 03-06 Trichomonas/Wet Prep Specimen Descriptio n .VAGINA Direct Exam NO CLUE CELLS SEEN NO TRICHOMONAS SEEN NO YEAST OBSERVED Report Status FINAL 03/06/2025 Normal [facility] Comment on above: Performed By: #### W P #### [facility] [address] [place], [place] 8[address]83 Swimming Pool Attendant: Chandler Mccall MD Wet prep, genitalon 03-06-20 25 Microorganism or agent identified Nom (Unsp spec) NO CLUE CELLS SEEN [facility] Microorganism or agent identified Nom (Unsp spec) NO TRICHOMONAS SEEN [facility] Microorganism or agent identified Nom (Unsp spec) NO YEAST OBSERVED [facility] Specimen Description .VAGINA [facility] CBCon 03-05-2025 ABSOLUTE BAS 0.1 10*3/uL Normal 0.0-0.2 [facility] ABSOLUTE EOS 0.3 10*3/uL Normal 0.0-0.7 [facility] ABSOLUTE NEUTROPHIL COUNT 4.4 10*3/uL Normal 1.4-6.5 [facility] Basophils/100 WBC (Bld) 1.0 % Normal 0.0-2.0 [facility] DTYPE AUTO DIFF Normal [facility] Eosinophils/100 WBC (Bld) 4.1 % Normal 0.0-11.0 [facility] Lymphocytes (Bld) [#/Vol] 2.2 10*3/uL Normal 1.2-3.4 [facility] Lymphocytes/100 WBC (Bld) 29.3 % Normal 20.0-55.0 [facility] Monocytes (Bld) [#/Vol] 0.6 10*3/uL Normal 0.0-0.7 [facility] Monocytes/100 WBC (Bld) 8.0 % Normal 0.0-10.0 [facility] Neutrophils/100 WBC (Bld) 57.6 % Normal 37.0-75.0 [facility] Erythrocyte distribution width (RBC) [Ratio] 18.9 % High 11.5-14.5 [facility] Hematocrit (Bld) [Volume fraction] 28.2 % Low 36.0-48.0 [facility] Hemoglobin (Bld) [Mass/Vol] 8.6 g/dL Low 12.0-16.0 [facility] MCH (RBC) [Entitic mass] 21.7 pg Low 26.0-35.0 [facility] MCHC (RBC) [Mass/Vol] 30.6 g/dL Normal 27.0-37.0 [facility] MCV (RBC) [Entitic vol] 70.9 fL Low 80.0-100.0 [facility] Platelet mean volume (Bld) [Entitic vol] 8.0 fL Normal 7.4-11.0 [facility] Platelets (Bld) [#/Vol] 348 10*3/uL Normal 130-400 [facility] RBC (Bld) [#/Vol] 3.97 10*6/uL Low 4.0-5.4 [facility] WBC (Bld) [#/Vol] 7.7 10*3/uL Normal 3.6-11.0 [facility] CBC(NO DIFF)on 03-05-2025 Erythrocyte distribution width (RBC) [Ratio] 18.8 % High 11.5-14.5 [facility] Hematocrit (Bld) [Volume fraction] 27.3 % Low 36.0-48.0 [facility] Hemoglobin (Bld) [Mass/Vol] 8.4 g/dL Low 12.0-16.0 [facility] MCH (RBC) [Entitic mass] 21.9 pg Low 26.0-35.0 [facility] MCHC (RBC) [Mass/Vol] 30.9 g/dL Normal 27.0-37.0 [facility] MCV (RBC) [Entitic vol] 70.7 fL Low 80.0-100.0 [facility] Platelet mean volume (Bld) [Entitic vol] 7.7 fL Normal 7.4-11.0 [facility] Platelets (Bld) [#/Vol] 314 10*3/uL Normal 130-400 [facility] RBC (Bld) [#/Vol] 3.86 10*6/uL Low 4.0-5.4 [facility] WBC (Bld) [#/Vol] 7.0 10*3/uL Normal 3.6-11.0 [facility] CBC, EDIF, PLATELETon 2024 ABSOLUTE BASOPHIL COUNT 0.1 10*3/uL 0.0 - 0.2 10*3/uL [facility] Basophils/100 WBC (Bld) 1 % 0.0 - 2.0 % [facility] Differential cell count method Nom (Bld) AUTO DIFF % [facility] Eosinophils (Bld) [#/Vol] 0.3 10*3/uL 0.0 - 0.7 10*3/uL [facility] Eosinophils/100 WBC (Bld) 4.1 % 0.0 - 11.0 % [facility] Erythrocyte distribution width (RBC) [Ratio] 18.9 % High 11.5 - 14.5 % [facility] Hematocrit (Bld) [Volume fraction] 28.2 % Low 36.0 - 48.0 % [facility] Hemoglobin (Bld) [Mass/Vol] 8.6 g/dL Low [facility] Interpretation and review of laboratory results Abnormal [facility] Lymphocytes (Bld) [#/Vol] 2.2 10*3/uL 1.2 - 3.4 10*3/uL [facility] Lymphocytes/100 WBC (Bld) 29.3 % 20.0 - 55.0 % [facility] MCH (RBC) [Entitic mass] 21.7 pg Low 26.0 - 35.0 PG [facility] MCHC (RBC) [Mass/Vol] 30.6 g/dL [facility] MCV (RBC) [Entitic vol] 70.9 fL Low [facility] Monocytes (Bld) [#/Vol] 0.6 10*3/uL 0.0 - 0.7 10*3/uL [facility] Monocytes/100 WBC (Bld) 8 % 0.0 - 10.0 % [facility] Neutrophils (Bld) [#/Vol] 4.4 10*3/uL 1.4 - 6.5 10*3/uL [facility] Neutrophils/100 WBC (Bld) 57.6 % 37.0 - 75.0 % [facility] Platelet mean volume (Bld) [Entitic vol] 8 fL [facility] Platelets (Bld) [#/Vol] 348 10*3/uL 130 - 400 10*3/uL [facility] RBC (Bld) [#/Vol] 3.97 10*6/uL Low 4.0 - 5.4 10*6/uL [facility] WBC (Bld) [#/Vol] 7.7 10*3/uL 3.6 - 11.0 10*3/uL [facility] ISHA W/REFLEX IF POSon 2024 ISHA-DIRECT Negative Normal [facility] Comment on above: Result Comment: Refe rence range: Negative PERFORMED AT [facility] Performed By: #### L ISHA #### Testing performed at [facility] [address] [facility] [place] [address] [place] [address] C REACTIVE PROTEINon 02-27- 025 CRP [Mass/Vol] MG/L 0 - 10 MG/L [facility] CRP [Mass/Vol] mg/L Normal 0-10 [facility] ESRon 02-27-2025 ESR (Bld) [Velocity] 26 mm/h High 0-15 [facility] SEDIMENTATION RATE, AUTOMATE Don 02-27-2025 ESR (Bld) [Velocity] 26 mm/h High [facility] Interpretation and review of laboratory results Abnormal [facility] CMP FASTINGon 02-18-2025 A:G RATIO 1.2 RATIO Low 1.3-2.2 [facility] Albumin [Mass/Vol] 4.2 g/dL Normal 3.5-5.0 [facility] ALP [Catalytic activity/Vol] 85 U/L Normal 38-126 [facility] ALT [Catalytic activity/Vol] 19 U/L Normal <35 [facility] AST [Catalytic activity/Vol] 28 U/L Normal 14-36 [facility] Bilirubin [Mass/Vol] 0.6 mg/dL Normal 0.2-1.3 [facility] Calcium [Mass/Vol] 9.9 mg/dL Normal 8.4-10.2 [facility] Chloride [Moles/Vol] 107 mmol/L Normal 98-107 [facility] Comment on above: Result Comment: Darrius bryson note: Triglyceride levels of 600mg/dL or higher may positively bias chloride results by approximately 2.1 mmol CO2 [Moles/Vol] 22 mmol/L Normal 22-30 [facility] Creatinine [Mass/Vol] 0.90 mg/dL Normal 0.7-1.2 [facility] GFR Information Average GFR for 40-4 9 years old = 99. Normal [facility] Comment on above: Result Comment: Database Software Technician denny Kidney disease, GFR = <60. Kidney failure, GFR = <15. The GFR estimate is not adjusted for extreme body surface area or acute process, nor has it been validated for women or ethnic groups other than and . GFR/1.73 sq M.predicted MDRD (S/P/Bld) [Vol rate/Area] 72 mL/min/{1.73_m2} Normal [facility] Glucose [Mass/Vol] 98 mg/dL Normal 70-100 [facility] Comment on above: Result Comment: NORMAL <100 mg/dL PREDIABETES 101-126 mg/dL DIABETES 126 mg/dL or higher Potassium [Moles/Vol] 3.6 mmol/L Normal 3.5-5.1 [facility] Protein [Mass/Vol] 7.7 g/dL Normal 6.3-8.2 [facility] Sodium [Moles/Vol] 137 mmol/L Normal 137-145 [facility] Urea nitrogen [Mass/Vol] 10 mg/dL Normal 7-20 [facility] COMPREHENSIVE METABOLIC PANE Rajesh 02-18-2025 Albumin [Mass/Vol] 4.2 g/dL 3.5 - 5.0 g/dL [facility] Albumin/Globulin [Mass ratio] 1.2 {ratio} Low [facility] ALP [Catalytic activity/Vol] 85 U/L 38 - 126 U/L [facility] ALT [Catalytic activity/Vol] 19 U/L NINF - 35 U/L [facility] AST [Catalytic activity/Vol] 28 U/L 14 - 36 U/L [facility] Bilirubin [Mass/Vol] 0.6 mg/dL 0.2 - 1 .3 mg/dL [facility] Calcium [Mass/Vol] 9.9 mg/dL 8.4 - 10. 2 mg/dL [facility] Chloride [Moles/Vol] 107 mmol/L [facility] Comment on above: Please note: Triglyc eride levels of 600mg/dL or higher may positively bias chloride results by approximately 2.1 mmol CO2 [Moles/Vol] 22 mmol/L [facility] Creatinine [Mass/Vol] 0.9 mg/dL 0.7 - 1.2 mg/dL [facility] GFR COMMENT Average GFR for 40-4 9 years old = 99. [facility] Comment on above: Chronic Kidney disea se, GFR = <60. Kidney failure, GFR = <15. The GFR estimate is not adjusted for extreme body surface area or acute process, nor has it been validated for women or ethnic groups other than and . GFR/1.73 sq M.predicted MDRD (S/P/Bld) [Vol rate/Area] 72 mL/min/{1.73_m2} ml/min/1.73 sq.m [facility] Glucose post fast [Mass/Vol] 98 mg/dL [facility] Comment on above: NORMAL <100 mg/dL PREDIABETES 101-126 mg/dL DIABETES 126 mg/dL or higher Interpretation and review of laboratory results Abnormal [facility] Potassium [Moles/Vol] 3.6 mmol/L [facility] Protein [Mass/Vol] 7.7 g/dL 6.3 - 8.2 g/dL [facility] Sodium [Moles/Vol] 137 mmol/L [facility] Urea nitrogen [Mass/Vol] 10 mg/dL 7 - 20 mg/dL [facility] FREE T4on 02-18-2025 Free T4 [Mass/Vol] 0.39 ng/dL Low 0.78-2.19 [facility] IRON PROFILEon 02-18-2025 IRON BINDING 629 UG/DL High 250-450 [facility] Comment on above: Performed By: #### F EPRO #### Testing performed at [address] [address] TRANSFERRIN SATURATION,CALCULATE D 6 % Normal [facility] Comment on above: Performed By: #### F EPRO #### Testing performed at [address] [address] Iron [Mass/Vol] 37 ug/dL Normal 37-170 [facility] Comment on above: Performed By: #### F EPRO #### Testing performed at [address] [address] IRON/IRON BINDING/TRANSFERRI Non 02-18-2025 Interpretation and review of laboratory results Abnormal [facility] Iron [Mass/Vol] 37 ug/dL [facility] Iron binding capacity [Mass/Vol] 629 High [facility] Iron saturation [Mass fraction] 6 % [facility] No Panel Informationon 02-18 Interpretation and review of laboratory results Abnormal [facility] QUANTIFERON TB GOLD PLUS 1 T UBEon 02-18-2025 QUANTIFERNON INCUBATION Incubation performed. Normal [facility] Comment on above: Performed By: #### Z QFIT, LQGARTH, LMMR #### Testing performed at [facility] [address] [place] [address] [place] [address] QUANTIFERON-TB GOLD PLUS Negative [facility] Comment on above: Result Comment: Refe rence range: Negative (NOTE) No response to M tuberculosis antigens detected. Infection with M tuberculosis is unlikely, but high risk individuals should be considered for additional testing (ATS/IDSA/CDC Clinical Practice Guidelines, 2017). The reference range is an Antigen minus Nil result of <0.35 IU/mL. Chemiluminescence immunoassay methodology PERFORMED AT [facility] Performed By: #### Raul COOK, TODD, LMMR #### Testing performed at [address] [address] RFLX QUANTIFERON-TB GOLD PLU Son 02-18-2025 QUANTIFERON CRITERIA Comment [facility] Comment on above: Result Comment: (NOT E) QuantiFERON-TB Gold Plus is a qualitative indirect test for M tuberculosis infection (including disease) and is intended for use in conjunction with risk assessment, radiography, and other medical and diagnostic evaluations. The QuantiFERON-TB Gold Plus result is determined by subtracting the Nil value from either TB antigen (Ag) value. The Mitogen tube serves as a control for the test. Performed By: #### Raul COOK, LQGARTH, LMMR ####Testing performed at [address] [address] QUANTIFERON MITOGEN VALUE 7.54 [facility] Comment on above: Result Comment: Unit : IU/mL PERFORMED AT [facility] Performed By: #### Raul QGARTH, LQFIT, LMMR ####Testing performed at [address] [address] QUANTIFERON NIL VALUE 0.18 [facility] Comment on above: Result Comment: Unit : IU/mL Performed By: #### Raul QFIT, LQFIT, LMMR ####Testing performed at [address] [place] [address] QUANTIFERON TB1 AG VALUE 0.06 [facility] Comment on above: Result Comment: Unit : IU/mL Performed By: #### Z QFIT, LQFIT, LMMR ####Testing performed at [address] [address] QUANTIFERON TB2 AG VALUE 0.30 Normal [facility] Comment on above: Result Comment: Unit : IU/mL Performed By: #### Z QFIT, LQFIT, LMMR ####Testing performed at [address] [address] T4 FREEon 02-18-2025 Free T4 [Mass/Vol] 0.39 ng/dL Low 0.78 - 2. 19 ng/dL [facility] Interpretation and review of laboratory results Abnormal [facility] TROPONIN I, HIGH SENSITIVITY on 02-18-2025 TROPONIN I, HIGH SENSITIVITY <2 0 - 12 pg/mL [facility] Comment on above: Indeterminant: >12 to 100 pg/mL female >20 to 100 pg/mL male Indicative of myocardial injury. Serial sampling is recommended, a change of greater than or equal to 20 pg/mL is indicative of acute coronary syndrome. [facility] TROPONIN I, HIGH SENSITIVITY <2 Normal 0-12 [facility] Comment on above: Result Comment: Indeterminant: >12 to 100 pg/mL female >20 to 100 pg/mL male Indicative of myocardial injury. Serial sampling is recommended, a change of greater than or equal to 20 pg/mL is indicative of acute coronary syndrome. Performed By: #### T GEM ####Testing performed at [place] [address] [place] [address] TSH W/FT4 REFLEXon Interpretation and review of laboratory results Abnormal [facility] TSH Qn 56.2 m[IU]/L High [facility] TSH,REFLEX FREE T4on 025 TSH,REFLEX FREE T4 56.200 uIU/ML High 0.46-4.68 [facility] URINALYSIS, MACROon 02-19-20 25 Bilirubin Ql (U) Negative NEGATIVE [facility] Clarity (U) CLEAR CLEAR [facility] Color (U) YELLOW YELLOW [facility] Glucose Test strip (U) [Mass/Vol] Negative NEGATIVE mg/dl [facility] Hemoglobin Ql (U) TRACE-INTACT Abnormal NEGATIVE [facility] Ketones (U) [Mass/Vol] Negative NEGATIVE mg/dl [facility] Leukocyte esterase Test strip Ql (U) Negative NEGATIVE [facility] Nitrite Ql (U) Negative NEGATIVE [facility] pH (U) 5.5 [pH] 5.0 - 7.0 [facility] Protein Ql (U) Negative NEGATIVE mg/dl [facility] Specific gravity (U) [Rel density] >1.030 High 1.010 - 1.025 [facility] Urobilinogen (U) [Mass/Vol] 0.2 mg/dL [facility] URINE HCG QUALon 02-18-2025 Beta HCG ( test) Ql (U) Negative Normal [facility] URINE MACROSCOPICon 02-19-20 25 Bilirubin Ql (U) Negative Normal NEGATIVE [facility] Clarity (U) CLEAR Normal CLEAR [facility] Color (U) YELLOW Normal YELLOW [facility] Glucose Ql (U) Negative Normal NEGATIVE [facility] pH (U) 5.5 [pH] Normal 5.0-7.0 [facility] URINE HEMOGLOBIN TRACE-INTACT Abnormal NEGATIVE [facility] URINE KETONE Negative Normal NEGATIVE [facility] URINE LEUKOTEST Negative Normal NEGATIVE [facility] URINE NITRATES Negative Normal NEGATIVE [facility] URINE SPEC GRAVITY >1.030 High 1.010-1.025 [facility] URINE TOTAL PROTEIN Negative Normal NEGATIVE [facility] Urobilinogen Qn (U) 0.2 {Levi'U}/dL Normal 0.2-1.0 [facility] URINE MICROSCOPICon 02-19-20 25 Bacteria LM.HPF (Urine sed) [#/Area] 3+ Abnormal NEGATIVE [facility] Casts LM.LPF (Urine sed) [#/Area] NONE NONE /LPF [facility] Crystals LM Nom (Urine sed) OCCASIONAL Abnormal NONE [facility] Comment on above: CA OXALATE CRYSTALS Epithelial cells LM Ql (Urine sed) 20 TO 30 /HPF [facility] Mucus Ql (Urine sed) TRACE Abnormal NEGATIVE [facility] RBC LM.HPF (Urine sed) [#/Area] 5 TO 10 NEGATIVE /HPF [facility] Urine sediment comments LM Dustin (Urine sed) POSSIBLY CONTAMINATED SPECIMEN, CULTURE MUST BE ORDERED SEPARATELY IF DEEMED NECESSARY. [facility] WBC LM.HPF (Urine sed) [#/Area] Negative NEGATIVE /HPF [facility] BACTERIA 3+ Abnormal NEGATIVE [facility] CASTS NONE Normal NONE [facility] CRYSTAL OCCASIONAL Abnormal NONE [facility] Comment on above: Result Comment: CA O XALATE CRYSTALS Epithelial cells LM Ql (Urine sed) 20 TO 30 Normal [facility] Mucus Ql (Urine sed) TRACE Abnormal NEGATIVE [facility] URINE COMMENT POSSIBLY CONTAMINATE D SPECIMEN, CULTURE MUST BE ORDERED SEPARATELY IF DEEMED NECESSARY. Normal [facility] URINE RBC'S 5 TO 10 Normal NEGATIVE [facility] URINE WBC'S Negative Normal NEGATIVE [facility] CBCon 02-17-2025 ABSOLUTE BAS 0.1 10*3/uL Normal 0.0-0.2 [facility] ABSOLUTE EOS 0.4 10*3/uL Normal 0.0-0.7 [facility] ABSOLUTE NEUTROPHIL COUNT 5.3 10*3/uL Normal 1.4-6.5 [facility] Basophils/100 WBC (Bld) 0.9 % Normal 0.0-2.0 [facility] DTYPE AUTO DIFF Normal [facility] Eosinophils/100 WBC (Bld) 4.4 % Normal 0.0-11.0 [facility] Lymphocytes (Bld) [#/Vol] 2.3 10*3/uL Normal 1.2-3.4 [facility] Lymphocytes/100 WBC (Bld) 26.9 % Normal 20.0-55.0 [facility] Monocytes (Bld) [#/Vol] 0.6 10*3/uL Normal 0.0-0.7 [facility] Monocytes/100 WBC (Bld) 6.5 % Normal 0.0-10.0 [facility] Neutrophils/100 WBC (Bld) 61.3 % Normal 37.0-75.0 [facility] Erythrocyte distribution width (RBC) [Ratio] 18.0 % High 11.5-14.5 [facility] Hematocrit (Bld) [Volume fraction] 28.7 % Low 36.0-48.0 [facility] Hemoglobin (Bld) [Mass/Vol] 8.9 g/dL Low 12.0-16.0 [facility] MCH (RBC) [Entitic mass] 21.8 pg Low 26.0-35.0 [facility] MCHC (RBC) [Mass/Vol] 31.0 g/dL Normal 27.0-37.0 [facility] MCV (RBC) [Entitic vol] 70.1 fL Low 80.0-100.0 [facility] Platelet mean volume (Bld) [Entitic vol] 8.6 fL Normal 7.4-11.0 [facility] Platelets (Bld) [#/Vol] 296 10*3/uL Normal 130-400 [facility] RBC (Bld) [#/Vol] 4.09 10*6/uL Normal 4.0-5.4 [facility] WBC (Bld) [#/Vol] 8.6 10*3/uL Normal 3.6-11.0 [facility] CBC, EDIF, PLATELETon 2024 ABSOLUTE BASOPHIL COUNT 0.1 10*3/uL 0.0 - 0.2 10*3/uL [facility] Basophils/100 WBC (Bld) 0.9 % 0.0 - 2.0 % [facility] Differential cell count method Nom (Bld) AUTO DIFF % [facility] Eosinophils (Bld) [#/Vol] 0.4 10*3/uL 0.0 - 0.7 10*3/uL [facility] Eosinophils/100 WBC (Bld) 4.4 % 0.0 - 11.0 % [facility] Erythrocyte distribution width (RBC) [Ratio] 18 % High 11.5 - 14.5 % [facility] Hematocrit (Bld) [Volume fraction] 28.7 % Low 36.0 - 48.0 % [facility] Hemoglobin (Bld) [Mass/Vol] 8.9 g/dL Low [facility] Interpretation and review of laboratory results Abnormal [facility] Lymphocytes (Bld) [#/Vol] 2.3 10*3/uL 1.2 - 3.4 10*3/uL [facility] Lymphocytes/100 WBC (Bld) 26.9 % 20.0 - 55.0 % [facility] MCH (RBC) [Entitic mass] 21.8 pg Low 26.0 - 35.0 PG [facility] MCHC (RBC) [Mass/Vol] 31 g/dL [facility] MCV (RBC) [Entitic vol] 70.1 fL Low [facility] Monocytes (Bld) [#/Vol] 0.6 10*3/uL 0.0 - 0.7 10*3/uL [facility] Monocytes/100 WBC (Bld) 6.5 % 0.0 - 10.0 % [facility] Neutrophils (Bld) [#/Vol] 5.3 10*3/uL 1.4 - 6.5 10*3/uL [facility] Neutrophils/100 WBC (Bld) 61.3 % 37.0 - 75.0 % [facility] Platelet mean volume (Bld) [Entitic vol] 8.6 fL [facility] Platelets (Bld) [#/Vol] 296 10*3/uL 130 - 400 10*3/uL [facility] RBC (Bld) [#/Vol] 4.09 10*6/uL 4.0 - 5.4 10*6/uL [facility] WBC (Bld) [#/Vol] 8.6 10*3/uL 3.6 - 11.0 10*3/uL [facility] MEASLES,MUMP,RUBELLAon 02-17 MUMPS ABS, IGG 187.0 Normal [facility] Comment on above: Result Comment: Refe rence range: Immune >10.9 Unit: AU/mL (NOTE) Negative <9.0 Equivocal 9.0 - 10.9 Positive >10.9 A positive result generally indicates past exposure to Mumps virus or previous vaccination. PERFORMED AT [facility] Performed By: #### Z QFIT, LQFIT, LMMR #### Testing performed at [facility] [address] [facility] [place] [address] [place] [address] RUBELLA AB, IGG 4.14 Normal [facility] Comment on above: Result Comment: Refe rence range: Immune >0.99 Unit: index (NOTE) Non-immune <0.90 Equivocal 0.90 - 0.99 Immune >0.99 Performed By: #### Z QFIT, LQFIT, LMMR #### Testing performed at [facility] [address] [place] [address] [place] [address] RUBEOLA AB, IGG 213.0 Normal [facility] Comment on above: Result Comment: Refe rence range: Immune >16.4 Unit: AU/mL (NOTE) Negative <13.5 Equivocal 13.5 - 16.4 Positive >16.4 Presence of antibodies to Rubeola is presumptive evidence of immunity except when acute infection is suspected. Performed By: #### Z QFIT, LQFIT, LMMR #### Testing performed at [facility] [address] [place] [address] HEP B SURFACE [facility] HEP B SURFACE AB Negative Normal NEGATIVE [facility] Comment on above: Result Comment: Clinical Interpretation of Immune Status Negative: patient is considered to be not immune to infection with HBV Intermediate: unable to determine if anti-HBs is present at levels consistent with immunity Positive: anti-HBs detected, patient is considered to be immune to infection with HBV HEP C [facility] 02-16-2025 HEP C AB Negative Normal NEGATIVE [facility] Reminderson 11-06-2024 Reminders Reminders From: Kaylee Kaur LPN To: GSN - Clinical; Sent: 11/06/2024 14:01:59 EDT Show up: 10/05/2034 07:00:00 EST Subject: colonoscopy recall Due Date/Time: 11/05/2034 07:00:00 EDT Reminder/Recall Patient due for screening colonoscopy 11/05/2034. Normal [facility] DBT Breast - left diagnostic on 09-19-2024 Benign findings. No mammographic or ultrasonographic evidence of malignancy. BIRADS: BIRADS - CATEGORY 2 Benign Findings. Normal interval follow-up is recommended in 12 months. OVERALL ASSESSMENT - BENIGN A letter of notification will be sent to the patient regarding the results. [employer] recommends annual mammograms for women 40 years and older. Performing Facility: [place] [address] [facility] Radiology Study observation (narrative) Nikolas Felix [facility] AIDA DIGITAL DIAGNOSTIC UNILATERAL LEFTon 09-19-2024 [facility] AIDA DIGITAL DIAGNOSTIC UNILATERAL LEFT EXAMINATION: DIAGNOSTIC [...] to the patient regarding the results. [employer] recommends annual mammograms for women 40 years and older. Performing Facility: [place] [address] Interpreted by: Armando Oliveros DO Signed by: Armando Oliveros DO 09/19/24 Final result Normal [facility] No Panel Informationon 09-19 EXAMINATION: DIAGNOSTIC DIGITAL [...] cm from the nipple. Left axilla negative. [facility] No Panel InformationOrdered By: Armando Oliveros on 09-19-2024 [facility] [employer] App Phone: US BREAST LIMITED LEFTon US BREAST [...] to the patient regarding the results. [employer] recommends annual mammograms for women 40 years and older. Interpreted by: Armando Oliveros DO Signed by: Armando Oliveros DO 09/19/24 Final result Normal [facility] US Breast - left limitedon 0 09-19-2024 Benign findings. No mammographic or ultrasonographic evidence of malignancy. BIRADS: BIRADS - CATEGORY 2 Benign Findings. Normal interval follow-up is recommended in 12 months. OVERALL ASSESSMENT - BENIGN A letter of notification will be sent to the patient regarding the results. [employer] recommends annual mammograms for women 40 years and older. [facility] Radiology Study observation (narrative) Nikolas Felix [facility] DBT Breast - bilateral scree ningon 08-08-2024 Focal asymmetry is i n the [...] INCOMPLETE: NEED ADDITIONAL IMAGING EVALUATION. Performing Facility: [place] [address] [facility] EXAMINATION: SCREENING DIGITAL BILATERAL MAMMOGRAM [...] middle depth with additional mammographic workup advised. [facility] DBT Breast - bilateral scree ruthgOrdered By: Leanna Bess on 08-08-2024 [facility] Work Phone: [facility] AIDA DIGITAL SCREEN SASHA Martin 08-08-2024 [facility] AIDA DIGITAL SCREEN BILATERAL EXAMINATION: SCREENING DIGITAL [...] INCOMPLETE: NEED ADDITIONAL IMAGING EVALUATION. Performing Facility: [place] [address] Interpreted by: Leanna Bess MD Signed by: Leanna Bess MD 08/08/24 Final result Normal [facility] DBT Breast - bilateral leathae bouchra 08-07-2024 Radiology Study observation (narrative) [facility] HPV DNA High Riskon 07-02-20 24 HPV Interp Normal [facility] Comment on above: Result Comment: [...] purposes. Performed By: #### H PVH #### [address] [address] Swimming Pool Attendant: Prasanna Michaels MD HPV Type 16 Not detected [facility] Comment on above: Performed By: #### H PVH #### [address] [address] Swimming Pool Attendant: Prasanna Michaels MD HPV Type 18 Not detected [facility] Comment on above: Performed By: #### H PVH #### [address] [address] Swimming Pool Attendant: Prasanna Michaels MD Other High Risk HPV Not detected [facility] Comment on above: Performed By: #### H PVH #### [address] [address] Swimming Pool Attendant: Prasanna Michaels MD HPV DNA High Riskon 11-22-20 24 HPV Sample .THIN PREP [facility] Comment on above: Performed By: #### H PVH #### [address] [address] Swimming Pool Attendant: Prasanna Michaels MD Source CERVICAL MATERIAL [facility] Comment on above: Performed By: #### H PVH #### [address] [address] Swimming Pool Attendant: Prasanna Michaels MD Cytology Reporton 06-17-2024 Cytology report Cyto stain.thin prep Doc (Cvx/Vag) (NOTE) Path Number: [id number] DIAGNOSIS Imaged ThinPrep Pap - Cervical (1 monolayer slide): Specimen Adequacy: Satisfactory for evaluation. - Endocervical/transformati on zone component present. Descriptive Diagnosis: Atypical squamous [...] or for other forensic purposes. Performed at [address] [id number] ([phone] Source of Specimen: A: Imaged ThinPrep Pap - Cervical (1 monolayer slide) HPV Reflex?.................. ....HPV if ASCUS Clinical History Contraceptive use Z12.4 Encounter for screening for malignant neoplasm of cervix LMP: 06/02/2024 Processing Lab: [address] [address] Interpretation performed at [address] [address] This Pap Test has been evaluated with the assistance of the Ja[employer] Pap Test Imaging System. The Pap smear is a screening test primarily for squamous epithelial lesions, which is subject to both false negative and false positive results. Your patient should be reminded to consult you immediately if she experiences any suspicious signs or symptoms, regardless of her Pap smear result. GYNECOLOGIC CYTOLOGY REPORT Patient Name: KALLIE WEEKS [facility] Rec: [id number] [facility] ANATOMIC PATHOLOGY [address] [place] [address], [place] [address] Normal [facility] HVF 24-2 FAST - OUon 024 HVF 24-2 FAST - OU Hare visual fiel d (24-2 JODY fast): full OU; MD +0.93 OD, +0.39 OS Normal [facility] Perimetry studyon 04-02-2024 Hare visual fiel d (24-2 JODY fast): full OU; MD +0.93 OD, +0.39 OS RADIOLOGY [facility] Radiology Study observation (narrative) [facility] HCG Qualitative, Serumon HCG ( test) Ql Negative NEGATIVE [facility] Comment on above: Specimens with hCG l evels near the threshold of the test (25 mIU/mL) may give a negative or indeterminate result. In such cases, another test should be performed with a new specimen in 48-72 hours. If early is suspected clinically in this setting, correlation with quantitative serum b-hCG level is suggested. log[employer] has confirmed the use of plasma for this test. This has not been cleared or approved by the U.S. Food and Drug Administration. The FDA has determined that such clearance is not necessary. [facility] [employer] CALCIUMon 01-22-2024 Calcium [Mass/Vol] 8.9 mg/dL Normal 8.5-10.5 [facility] Comment on above: Performed By: #### 1 7861-6 #### [facility] ([id number]) [address] [place] [address], [address] [place] [address] Parathyrin.intact [Mass/Vol] on 01-21-2024 PTH INTACT 44 pg/mL Normal 12-88 [facility] Comment on above: Performed By: #### T HYR, 2731-8 #### [facility] ([id number]) [address] [place] [address], [address] [place] [address] Surgical Pathologyon 024 Surgical Pathology Normal [facility] Comment on above: Result Comment: [facility] [address] [place] [address] Surgical Pathology Consultation Patient Name:KALLIE KEYES:1980 (Age: 43)Gender:FTaken:4Reported:4Physician(s):Betzaida Sierra MD ([phone])Copy To: Rec. #:[id number]: #[id number] Final Pathologic Diagnosis 1. Delphian lymph node, [...] Barreto MD Interpretation performed at [facility], [address] [place] [address], License number: [id number]. Clinical History Graves disease. Gross Description 1. Received in formalin labeled Galen KEYES lymph node is an ovoid sheet of adipose tissue, 1.4 x 0.8 x 0.3 cm. Within the adipose tissue is a 0.3 cm lymph node candidate. The specimen is entirely submitted in a single cassette. (1, ns, [id number], m2) JG 2. Received in formalin labeled [...] Entirety of detached fibrofatty tissue (13, ns, [id number], A???M, m2) [facility] Specimen(s) Received 1: Delphian lymph node 2: Entire thyroid gland Fee Codes(s): 1; 83617, 84295 2; 70429, 77666 THYROID PROFILEon 01-21-2024 Free T4 [Mass/Vol] 1.30 ng/dL Normal 0.61-1.60 [facility] Comment on above: Performed By: #### T HYR, 2731-8 #### [facility] ([id number]) [address], [address] [place] [address] TSH 0.47 uIU/mL Low 0.49-4.67 [facility] Comment on above: Performed By: #### T HYR, 2731-8 #### [facility] ([id number]) [address], [address] [place] [address] HCG.beta subunit IA 3rd IS Q non 01-09-2024 SERUM B HCG,3RD I.S. <5 Normal [facility] Comment on above: Result Comment: NEW REFERENCE [...] neoplasms. Performed By: #### 2 0415-6, #### [facility] ([id number]) [address], [address] [place] [address] HGB AND HCTon 01-09-2024 Hematocrit (Bld) [Volume fraction] 37.8 % Normal 35-47 [facility] Comment on above: Performed By: #### 2 0415-6, #### [facility] ([id number]) [address], [address] [place] [address] Hemoglobin (Bld) [Mass/Vol] 12.9 g/dL Normal 11.7-15.5 [facility] Comment on above: Performed By: #### 2 0415-6, #### [facility] ([id number]) [address], [address] [place] [address] CT Abdomen and Pelvis WO con traston [...] diffuse colonic stool burden may reflect constipation. [facility] Radiology Study observation (narrative) [facility] CT Abdomen and Pelvis WO con trastOrdered By: Yury Goodrich on 11-29-2023 [employer] Work Phone: HCG ( test) Ql (U)o n 11-29-2023 [facility] HCG QUALITATIVE, URINEon HCG ( test) Ql (U) Negative [facility] No Panel Informationon 11-28 Interpretation and review of laboratory results Abnormal [facility] URINALYSIS, MACROon 11-29-19 24 Bilirubin Ql (U) Negative NEGATIVE [facility] Clarity (U) CLOUDY Abnormal CLEAR [facility] Color (U) YELLOW YELLOW [facility] Glucose Test strip (U) [Mass/Vol] Negative NEGATIVE mg/dl [facility] Hemoglobin Ql (U) LARGE Abnormal NEGATIVE [facility] Ketones (U) [Mass/Vol] TRACE Abnormal NEGATIVE mg/dl [facility] Leukocyte esterase Test strip Ql (U) Negative NEGATIVE [facility] Nitrite Ql (U) Negative NEGATIVE [facility] pH (U) 6.0 [pH] 5.0 - 7.0 [facility] Protein Ql (U) 30 mg/dl Abnormal NEGATIVE [facility] Specific gravity (U) [Rel density] >1.030 High 1.010 - 1.025 [facility] Urobilinogen (U) [Mass/Vol] 0.2 mg/dL [facility] URINE MICROSCOPICon 11-29-19 24 Bacteria LM.HPF (Urine sed) [#/Area] 2+ Abnormal NEGATIVE [facility] Casts LM.LPF (Urine sed) [#/Area] NONE NONE /LPF [facility] Crystals LM Nom (Urine sed) NONE NONE [facility] Epithelial cells LM Ql (Urine sed) TOO NUMEROUS TO COUNT /HPF [facility] Mucus Ql (Urine sed) 3+ Abnormal NEGATIVE [facility] RBC LM.HPF (Urine sed) [#/Area] 10 TO 20 NEGATIVE /HPF [facility] Urine sediment comments LM Dustin (Urine sed) POSSIBLY CONTAMINATED SPECIMEN, CULTURE MUST BE ORDERED SEPARATELY IF DEEMED NECESSARY. [facility] WBC LM.HPF (Urine sed) [#/Area] 1 TO 5 NEGATIVE /HPF [facility] Lysozyme-[place]oon 11-15-2023 Lysozyme-[place] 4.9 mcg/mL Normal 2.6 - 6.0 [facility] Comment on above: Result Comment: ADDITIONAL INFORMATION This test was developed and its performance characteristics determined by [facility] in a manner consistent with CLIA requirements. This test has not been cleared or approved by the U.S. Food and Drug Administration. Test Performed by: [facility] [place] [address] Swimming Pool Attendant: Dustin Leonard M.D. Ph.D.; CLIA# [id number] Performed By: #### L ysozyme (Muramidase)-[place] #### [address] [address] [facility] 11-14-2023 FEDERICO-[place] 33 unit/L Normal 16 - 85 [facility] Comment on above: Result Comment: Test Performed by: [facility] [place] [address] Swimming Pool Attendant: Dustin Leonard M.D. Ph.D.; CLIA# [id number] Performed By: #### A ngiotensin Converting Enzyme-[place] #### [address] [address] ISHA Fbu-5-Igbuky 11-14-2023 ISHA Cytoplasmic Pattern-[place] Not Reported Normal [facility] Comment on above: Performed By: #### A ngiotensin Converting Enzyme-[place] #### [address] [address] ISHA Lab Comment-[place] Not Reported Normal [facility] Comment on above: Performed By: #### A ngiotensin Converting Enzyme-[place] #### [facility] [address] [place] [address] ISHA Pattern (2)-[place] Not Reported Normal [facility] Comment on above: Performed By: #### A ngiotensin Converting Enzyme-[place] #### [facility] [address] [place] [address] ISHA Pattern-[place] Not Reported Normal [facility] Comment on above: Performed By: #### A ngiotensin Converting Enzyme-[place] #### [facility] [address] [place] [address] ISHA Titer (2)-[place] Not Reported Normal [facility] Comment on above: Performed By: #### A ngiotensin Converting Enzyme-[place] #### [facility] [address] [place] [address] ISHA Titer-[place] Not Reported Normal [facility] Comment on above: Performed By: #### A ngiotensin Converting Enzyme-[place] #### [facility] [address] [place] [address] HEp-2 ISHA-[place] SEE BELOW Normal <1:80 (Negative) [facility] Comment on above: Result Comment: RESU LT: <1:80 (Negative) ADDITIONAL INFORMATION Method: Immunofluorescence using HEp-2 cellular substrate. Test Performed by: [facility] [place] [address] Swimming Pool Attendant: Dustin Leonard M.D. Ph.D.; CLIA# [id number] Performed By: ###Harvey Godfrey ngiotensin Converting Enzyme-[place] #### [facility] [address] [place] [address] ANCA-[facility] 11-14-2023 cANCA-[place] Negative Normal Negative [facility] Comment on above: Performed By: #Hermann Fernandez ytoplasmic Neutrophilic Antibody-[place] #### [facility] [address] [place] [address] pANCA-[place] Negative Normal Negative [facility] Comment on above: Result Comment: Nega tive for cANCA and pANCA patterns by immunofluorescence. ADDITIONAL INFORMATION This test was developed and its performance characteristics determined by [facility] in a manner consistent with CLIA requirements. This test has not been cleared or approved by the U.S. Food and Drug Administration. Test Performed by: [facility] [place] [id number] Swimming Pool Attendant: Dustin Leonard M.D. Ph.D.; CLIA# [id number] Performed By: ##Soren Fernandez ytoplasmic Neutrophilic Antibody-[place] #### [facility] [address] [place] [address] TB-QFTon 11-13-2023 Mitogen minus Nil 9.98 IU/mL Normal [facility] Comment on above: Performed By: #### C [id number] #### [address] [address] Nil Result 0.02 IU/mL Normal [facility] Comment on above: Performed By: #### C [id number] #### [address] [address] QuantiFERON-TB Gold Plus Negative Normal Negative [facility] Comment on above: Result Comment: No [...] an Interferon-gamma level Performed By: #### C D:[id number] #### [address] [address] TB1 Ag minus Nil 0.04 IU/mL Normal [facility] Comment on above: Performed By: #### C [id number] #### [address] [address] TB2 Ag minus Nil 0.04 IU/mL Normal [facility] Comment on above: Performed By: #### C [id number] #### [address] [address] Trep Abon 11-13-2023 Treponema Total Ab <0.10 Normal [facility] Comment on above: Performed By: #### C [id number] #### [address] [place] [address] Treponema Total Ab Interp Negative Normal Negative [facility] Comment on above: Result Comment: No s erologic evidence of syphilis. No follow- up necessary unless clinically indicated (eg, early syphilis). Performed By: #### C [id number] #### [address] [place] [address] B12on 11-12-2023 Cobalamin (Vitamin B12) [Mass/Vol] 577 pg/mL Normal 180-914 [facility] Comment on above: Performed By: #### B 12 #### [address] [address] CRPon 11-12-2023 CRP 0.93 mg/dL High 0.00-0.75 [facility] Comment on above: Result Comment: CRP measurement is useful for assessment of non-specific INFLAMMATORY RESPONSE to infection or injury AND is a sensitive MARKER of ACUTE INFLAMMATION including CARDIAC RISK ASSESSMENT. CARDIAC patients with elevated CRP are POTENTIALLY at a HIGHER RISK OF FUTURE CARDIAC EVENTS. Performed By: #### C RP #### [address] [address] ESRon 11-12-2023 Sed Rate 18 mm/hr Normal 0-23 [facility] Comment on above: Performed By: #### A ngiotensin Converting Enzyme-[place] #### [facility] [address] [place] [address] MRI Orbits w/ + w/o Contrast on [...] Electronically Signed in Other Vendor System) Normal [facility] Rheumatoid Factor, Serumon 0 11-12-2023 Rheumatoid Factor,Serum <10.0 Normal 0.0-14.0 [facility] Comment on above: Performed By: #### C D:[id number] #### [facility] [address] [place] [address] Vitamin D 25-Hydroxy Totalon 11-12-2023 Vitamin D 25-Hydroxy Total 11 ng/mL Low 30-100 [facility] Comment on above: Result Comment: Renetta min D 25-Hydroxy Total Reference Range: Deficient: < 20 Insufficient: 20 to < 30 Sufficient: 30 - 100 Upper Safety Limit: > 100 Performed By: #### C [id number] #### [facility] [address] [place] [id number] CBC with Auto Differentialon 09-18-2023 Basophils (Bld) [#/Vol] 0.04 10*3/uL [facility] Basophils/100 WBC (Bld) 1 % 0 - 2 % [facility] Eosinophils (Bld) [#/Vol] 0.19 10*3/uL [facility] Eosinophils/100 WBC (Bld) 3 % 1 - 4 % [facility] Erythrocyte distribution width (RBC) [Ratio] 14.9 % High 11.8 - 14.4 % [facility] Hematocrit (Bld) [Volume fraction] 34.6 % Low 36.3 - 47.1 % [facility] Hemoglobin (Bld) [Mass/Vol] 10.7 g/dL Low 11.9 - 15.1 g/dL [facility] Immature granulocytes (Bld) [#/Vol] [facility] Immature granulocytes/100 WBC (Bld) 0 % 0 [facility] Interpretation and review of laboratory results Abnormal [facility] Lymphocytes/100 WBC (Bld) 36 % 24 - 43 % [facility] Lymphocytes/100 WBC (Bld) 2.13 % [facility] MCH (RBC) [Entitic mass] 24.1 pg Low 25.2 - 33.5 pg [facility] MCHC (RBC) [Mass/Vol] 30.9 g/dL 28.4 - 34.8 g/dL [facility] MCV (RBC) [Entitic vol] 77.9 fL Low 82.6 - 102.9 fL [facility] Monocytes/100 WBC (Bld) 9 % 3 - 12 % [facility] Monocytes/100 WBC (Bld) 0.53 % [facility] Neutrophils/100 WBC (Bld) 51 % 36 - 65 % [facility] Nucleated RBC/100 WBC (Bld) [Ratio] 0.0 % 0.0 per 100 WBC [facility] Platelet mean volume (Bld) [Entitic vol] 10.0 fL 8.1 - 13.5 fL [facility] Platelets (Bld) [#/Vol] 313 10*3/uL [facility] RBC (Bld) [#/Vol] 4.44 10*6/uL 3.95 - 5.1 1 m/uL [facility] Segmented neutrophils/100 WBC (Bld) 3.05 % [facility] WBC other (Bld) [#/Vol] 6.0 [facility] Comprehensive Metabolic Pane rajesh 09-18-2023 Albumin [Mass/Vol] 4.0 g/dL 3.5 - 5.2 g/dL [facility] Albumin/Globulin [Mass ratio] 1.1 {ratio} 1.0 - 2.5 [facility] ALP [Catalytic activity/Vol] 99 U/L 35 - 104 U/L [facility] ALT [Catalytic activity/Vol] 17 U/L 5 - 33 U/L [facility] Anion gap [Moles/Vol] 12 mmol/L 9 - 17 mmol/L [facility] AST [Catalytic activity/Vol] 23 U/L NINF - 32 U/L [facility] Bilirubin [Mass/Vol] 0.3 mg/dL 0.3 - 1 .2 mg/dL [facility] Calcium [Mass/Vol] 8.9 mg/dL 8.6 - 10. 4 mg/dL [facility] Chloride [Moles/Vol] 103 mmol/L 98 - 10 7 mmol/L [facility] CO2 [Moles/Vol] 22 mmol/L 20 - 31 mmol/L [facility] Creatinine [Mass/Vol] 0.7 mg/dL 0.5 - 0.9 mg/dL [facility] GFR/1.73 sq M.predicted MDRD (S/P/Bld) [Vol rate/Area] - PINF [facility] Comment on above: These results are not [...] [Mass/Vol] 82 mg/dL 70 - 99 mg/dL [facility] Potassium [Moles/Vol] 3.8 mmol/L 3.7 - 5.3 mmol/L [facility] Protein [Mass/Vol] 7.5 g/dL 6.4 - 8.3 g/dL [facility] Sodium [Moles/Vol] 137 mmol/L 135 - 144 mmol/L [facility] Urea nitrogen [Mass/Vol] 11 mg/dL 6 - 20 mg/dL [facility] Urea nitrogen/Creatinine [Mass ratio] 16 mg/mg 9 - 20 [facility] Insulin, totalon 09-18-2023 Insulin 6.4 mU/L [facility] Insulin Reference Range: [facility] Comment on above: Fastin.6-24.9 30 min: 20-112 60 min: 29-88 90 min: 26-84 120 min: 22-79 Ironon 09-18-2023 Iron [Mass/Vol] 39 ug/dL 37 - 145 ug/dL [facility] Lipid Panelon 09-18-2023 Cholesterol [Mass/Vol] 184 mg/dL NINF - 200 mg/dL [facility] Comment on above: Cholesterol Guidelines: <200 Desirable 200-240 Borderline >240 Undesirable Cholesterol in HDL [Mass/Vol] 46 mg/dL 40 - PINF mg/dL [facility] Comment on above: HDL Guidelines: <40 Undesirable 40-59 Borderline >59 Desirable Cholesterol in LDL [Mass/Vol] 115 mg/dL 0 - 130 mg/dL [facility] [employer] Comment on above: LDL Guidelines: <100 Desirable 100-129 Near to/above Desirable 130-159 Borderline >159 Undesirable Direct (measured) LDL and calculated LDL are not interchangeable tests. Cholesterol.total/Ch olesterol in HDL [Mass ratio] 4.0 {ratio} NINF - 5 [facility] Triglyceride [Mass/Vol] 117 mg/dL NINF - 150 mg/dL [facility] Comment on above: Triglyceride Guidelines: <150 Desirable 150-199 Borderline 200-499 High >499 Very high Based on AHA Guidelines for fasting triglyceride, May 2012. No Panel Informationon 09-18 [facility] [employer] T3, Freeon 09-18-2023 Free T3 [Mass/Vol] 2.94 pg/mL 2.02 - 4. 43 pg/mL [facility] T4on 09-18-2023 T4 [Mass/Vol] 9.3 ug/dL 4.5 - 11.7 ug/dL [facility] TSHon 09-18-2023 TSH Qn 0.37 m[IU]/L [facility] CBC, EDIF, PLATELETon 2022 ABSOLUTE BASOPHIL COUNT 0.1 10*3/uL 0.0 - 0.2 10*3/uL [facility] Comment on above: Testing performed at [facility], [place], [place] [address] Basophils/100 WBC (Bld) 0.7 % 0.0 - 2.0 % [facility] Differential cell count method Nom (Bld) AUTO DIFF % [facility] Eosinophils (Bld) [#/Vol] 0.2 10*3/uL 0.0 - 0.7 10*3/uL [facility] Eosinophils/100 WBC (Bld) 2.0 % 0.0 - 11.0 % [facility] Erythrocyte distribution width (RBC) [Ratio] 16.1 % High 11.5 - 14.5 % [facility] Hematocrit (Bld) [Volume fraction] 30.4 % Low 36.0 - 48.0 % [facility] Hemoglobin (Bld) [Mass/Vol] 10.3 g/dL Low [facility] Interpretation and review of laboratory results Abnormal [facility] Lymphocytes (Bld) [#/Vol] 2.6 10*3/uL 1.2 - 3.4 10*3/uL [facility] Lymphocytes/100 WBC (Bld) 25.7 % 20.0 - 55.0 % [facility] MCH (RBC) [Entitic mass] 26.3 pg 26.0 - 35.0 PG [facility] MCHC (RBC) [Mass/Vol] 34.0 g/dL [facility] MCV (RBC) [Entitic vol] 77.5 fL Low [facility] Monocytes (Bld) [#/Vol] 0.8 10*3/uL High 0.0 - 0.7 10*3/uL [facility] Monocytes/100 WBC (Bld) 8.0 % 0.0 - 10.0 % [facility] Neutrophils (Bld) [#/Vol] 6.4 10*3/uL 1.4 - 6.5 10*3/uL [facility] Neutrophils/100 WBC (Bld) 63.6 % 37.0 - 75.0 % [facility] Platelet mean volume (Bld) [Entitic vol] 8.1 fL [facility] Platelets (Bld) [#/Vol] 269 10*3/uL 130 - 400 10*3/uL [facility] RBC (Bld) [#/Vol] 3.92 10*6/uL Low 4.0 - 5.4 10*6/uL [facility] WBC (Bld) [#/Vol] 10.1 10*3/uL 3.6 - 11.0 10*3/uL [facility] COMPREHENSIVE METABOLIC PANE Rajesh 11-20-2022 Albumin [Mass/Vol] 3.7 G/dl 3.5 - 5.0 G/dl [facility] Albumin/Globulin [Mass ratio] 1.1 {ratio} Low [facility] ALP [Catalytic activity/Vol] 81 U/L [facility] ALT [Catalytic activity/Vol] 20 U/L NINF [facility] AST [Catalytic activity/Vol] 22 U/L [facility] Bilirubin [Mass/Vol] 0.2 mg/dL [facility] Calcium [Mass/Vol] 9.1 mg/dL [facility] Chloride [Moles/Vol] 105 mmol/L [facility] Comment on above: Please note: Triglyc eride levels of 600mg/dL or higher may positively bias chloride results by approximately 2.1 mmol CO2 [Moles/Vol] 21 mmol/L Low [facility] Creatinine [Mass/Vol] 0.50 mg/dL Low [facility] GFR COMMENT Average GFR for 40-4 9 years old = 99. [facility] Comment on above: Chronic Kidney disea se, GFR = <60. Kidney failure, GFR = <15. The GFR estimate is not adjusted for extreme body surface area or acute process, nor has it been validated for women or ethnic groups other than and . Testing performed at [place], [place] [address] GFR/1.73 sq M.predicted among blacks MDRD (S/P/Bld) [Vol rate/Area] 175 mL/min/{1.73_m2} ml/min/1.73 sq.m [facility] GFR/1.73 sq M.predicted among non-blacks MDRD (S/P/Bld) [Vol rate/Area] 145 mL/min/{1.73_m2} ml/min/1.73 sq.m [facility] Glucose post fast [Mass/Vol] 129 mg/dL [facility] Comment on above: NORMAL <100 mg/dL PREDIABETES 101-126 mg/dL DIABETES 126 mg/dL or higher Interpretation and review of laboratory results Abnormal [facility] Potassium [Moles/Vol] 3.4 mmol/L Low [facility] Protein [Mass/Vol] 7.1 g/dL [facility] Sodium [Moles/Vol] 136 mmol/L Low [facility] Urea nitrogen [Mass/Vol] 7 mg/dL [facility] Narrative [Interpretat ion] Study observation.general transvaginal 1st [...] Suggestion of mild retroversion of the uterus. [facility] Radiology Study observation (narrative) [facility] Narrative [Interpretat ion] Study observation.general transvaginal 1st trimester USOrdered By: Mirza Schneider on 11-20-2022 [facility] Work Phone: HCG ( test) [place] [address].00 m[IU]/mL MIU/ML [facility] HospitalMyJob[facility] Comment on above: [facility] [place]: NON FEMALE 0-6 MIU/ML MALE [...] hCG testing of urine. Testing performed at [address] CBC with Auto Differentialon 11-03-2022 Absolute Eos # 0.24 [facility] Absolute Immature Granulocyte [facility] Absolute Lymph # 1.61 [facility] Absolute [place] # 0.66 [facility] Basophils Absolute [facility] Basophils/100 WBC (Bld) 0 % 0 - 2 % [facility] Eosinophils/100 WBC (Bld) 3 % 1 - 4 % [facility] Hematocrit (Bld) [Volume fraction] 35.5 % Low 36.3 - 47.1 % [facility] Hemoglobin (Bld) [Mass/Vol] 11.3 g/dL Low 11.9 - 15.1 g/dL [facility] Immature granulocytes/100 WBC (Bld) 0 % 0 [facility] Interpretation and review of laboratory results Abnormal [facility] Lymphocytes/100 WBC (Bld) 21 % Low 24 - 43 % [facility] MCH (RBC) [Entitic mass] 25.7 pg 25.2 - 33.5 pg [facility] MCHC (RBC) [Mass/Vol] 31.8 g/dL 28.4 - 34.8 g/dL [facility] MCV (RBC) [Entitic vol] 80.7 fL Low 82.6 - 102.9 fL [facility] Monocytes/100 WBC (Bld) 9 % 3 - 12 % [facility] NRBC Automated 0.0 0.0 per 100 WBC [facility] Platelet distribution width (Bld) [Ratio] 15.9 % High 11.8 - 14.4 % [facility] Platelet mean volume (Bld) [Entitic vol] 10.4 fL 8.1 - 13.5 fL [facility] Platelets (Bld) [#/Vol] 299 10*3/uL [facility] RBC (Bld) [#/Vol] 4.40 10*6/uL 3.95 - 5.1 1 m/uL [facility] Segmented neutrophils/100 WBC (Bld) 67 % High 36 - 65 % [facility] Segs Absolute 5.01 [facility] WBC (Bld) [#/Vol] 7.6 10*3/uL [facility] Microscopic Urinalysison Bacteria, UA 1+ Abnormal None [facility] Epithelial Cells UA 2 TO 5 [facility] Interpretation and review of laboratory results Abnormal [facility] RBC clumps Auto (Urine sed) [#/Area] 50 TO 100 [facility] WBC, UA 2 TO 5 [facility] TYPE AND SCREENon 11-03-2022 ABO/Rh Positive [facility] Arm Band Number [id number] [facility] Expiration Date 11/06/2022,2358 [facility] Urinalysis with Reflex to Cu ltureon 11-03-2022 Bilirubin Urine Negative NEGATIVE [facility] Color, UA Yellow Yellow [facility] Glucose Auto test strip (U) [Mass/Vol] Negative NEGATIVE [facility] Interpretation and review of laboratory results Abnormal [facility] Ketones (U) [Mass/Vol] Negative NEGATIVE [facility] Leukocyte esterase Auto test strip Ql (U) SMALL Abnormal NEGATIVE [facility] Nitrite Auto test strip Ql (U) Negative NEGATIVE [facility] Protein (U) [Mass/Vol] 7.5 mg/dL 5.0 - 9.0 [facility] Protein (U) [Mass/Vol] 1+ Abnormal NEGATIVE [facility] Specific Smoot, UA 1.020 1.010 - 1.020 [facility] Turbidity UA SLIGHTLY CLOUDY Abnormal Clear [facility] Urine Hgb 3+ Abnormal NEGATIVE [facility] Urobilinogen, Urine Normal Normal [facility] hCG, quantitative, on 11-03-2022 hCG Quant [id number] High NINF [facility] Comment on above: Non-preg premeno <=5 Postmeno <=8 Male <=3 If HCG results do not concur with clinical observations, additional testing to confirm results is recommended. Interpretation and review of laboratory results Abnormal [facility] CBC with Auto Differentialon 09-28-2022 Absolute Eos # 0.11 [facility] Absolute Immature Granulocyte [facility] Absolute Lymph # 0.98 Low [facility] Absolute [place] # 0.60 [facility] Basophils Absolute [facility] Basophils/100 WBC (Bld) 0 % 0 - 2 % [facility] Eosinophils/100 WBC (Bld) 2 % 1 - 4 % [facility] Hematocrit (Bld) [Volume fraction] 35.8 % Low 36.3 - 47.1 % [facility] Hemoglobin (Bld) [Mass/Vol] 11.4 g/dL Low 11.9 - 15.1 g/dL [facility] Immature granulocytes/100 WBC (Bld) 0 % 0 [facility] Interpretation and review of laboratory results Abnormal [facility] Lymphocytes/100 WBC (Bld) 20 % Low 24 - 43 % [facility] MCH (RBC) [Entitic mass] 25.2 pg 25.2 - 33.5 pg [facility] MCHC (RBC) [Mass/Vol] 31.8 g/dL 28.4 - 34.8 g/dL [facility] MCV (RBC) [Entitic vol] 79.0 fL Low 82.6 - 102.9 fL [facility] Monocytes/100 WBC (Bld) 12 % 3 - 12 % [facility] NRBC Automated 0.0 0.0 per 100 WBC [facility] Platelet distribution width (Bld) [Ratio] 15.9 % High 11.8 - 14.4 % [facility] Platelet mean volume (Bld) [Entitic vol] 10.1 fL 8.1 - 13.5 fL [facility] Platelets (Bld) [#/Vol] 312 10*3/uL [facility] RBC (Bld) [#/Vol] 4.53 10*6/uL 3.95 - 5.1 1 m/uL [facility] Segmented neutrophils/100 WBC (Bld) 66 % High 36 - 65 % [facility] Segs Absolute 3.13 [facility] WBC (Bld) [#/Vol] 4.9 10*3/uL [facility] Comprehensive Metabolic Pane rajesh 09-28-2022 Albumin [Mass/Vol] 3.7 g/dL 3.5 - 5.2 g/dL [facility] Albumin/Globulin [Mass ratio] 0.9 {ratio} Low 1.0 - 2.5 [facility] ALP [Catalytic activity/Vol] 135 U/L High 35 - 104 U/L [facility] ALT [Catalytic activity/Vol] 32 U/L 5 - 33 U/L [facility] Anion gap [Moles/Vol] 13 mmol/L 9 - 17 mmol/L [facility] AST [Catalytic activity/Vol] 28 U/L NINF - 32 U/L [facility] Bilirubin [Mass/Vol] 0.4 mg/dL 0.3 - 1 .2 mg/dL [facility] Calcium [Mass/Vol] 9.2 mg/dL 8.6 - 10. 4 mg/dL [facility] Chloride [Moles/Vol] 101 mmol/L 98 - 10 7 mmol/L [facility] CO2 [Moles/Vol] 24 mmol/L 20 - 31 mmol/L [facility] Creatinine [Mass/Vol] 0.63 mg/dL 0.50 - 0.90 mg/dL [facility] GFR/1.73 sq M.predicted MDRD (S/P/Bld) [Vol rate/Area] - PINF [facility] Comment on above: These results are not [...] [Mass/Vol] 92 mg/dL 70 - 99 mg/dL [facility] Interpretation and review of laboratory results Abnormal [facility] Potassium [Moles/Vol] 3.5 mmol/L Low 3.7 - 5.3 mmol/L [facility] Protein [Mass/Vol] 7.6 g/dL 6.4 - 8.3 g/dL [facility] Sodium [Moles/Vol] 138 mmol/L 135 - 144 mmol/L [facility] Urea nitrogen [Mass/Vol] 10 mg/dL 6 - 20 mg/dL [facility] Urea nitrogen/Creatinine (Bld) [Mass ratio] 16 9 - 20 [facility] HCG, Quantitative, on 09-28-2022 hCG Quant [id number] High NINF [facility] Comment on above: Non-preg premeno <=5 Postmeno <=8 Male <=3 If HCG results do not concur with clinical observations, additional testing to confirm results is recommended. Interpretation and review of laboratory results Abnormal [facility] Insulin, totalon 09-28-2022 Insulin 11.6 mU/L [facility] Insulin Reference Range: [facility] Comment on above: Fastin.6-24.9 30 min: 20-112 60 min: 29-88 90 min: 26-84 120 min: 22-79 [facility] Ironon 09-28-2022 Interpretation and review of laboratory results Abnormal [facility] Iron [Mass/Vol] 27 ug/dL Low 37 - 145 ug/dL [facility] Lipid Panelon 09-28-2022 Cholesterol [Mass/Vol] 145 mg/dL NINF - 200 mg/dL [facility] Comment on above: Cholesterol Guidelines: <200 Desirable 200-240 Borderline >240 Undesirable Cholesterol in HDL [Mass/Vol] 25 mg/dL Low 40 - PINF mg/dL [facility] Comment on above: HDL Guidelines: <40 Undesirable 40-59 Borderline >59 Desirable Cholesterol in LDL [Mass/Vol] 99 mg/dL 0 - 130 mg/dL [facility] [employer] Comment on above: LDL Guidelines: <100 Desirable 100-129 Near to/above Desirable 130-159 Borderline >159 Undesirable Direct (measured) LDL and calculated LDL are not interchangeable tests. Cholesterol.total/Ch olesterol in HDL [Mass ratio] 5.8 {ratio} High NINF - 5 [facility] Interpretation and review of laboratory results Abnormal [facility] Triglyceride [Mass/Vol] 104 mg/dL NINF - 150 mg/dL [facility] Comment on above: Triglyceride Guidelines: <150 Desirable 150-199 Borderline 200-499 High >499 Very high Based on AHA Guidelines for fasting triglyceride, May 2012. [facility] TSHon 09-28-2022 Interpretation and review of laboratory results Abnormal [facility] TSH Qn Low [facility] Vitamin D 25 Hydroxyon 09-28 25-hydroxyvitamin D3 [Mass/Vol] 15.5 ng/mL Low 29.9 - PINF ng/mL [facility] Comment on above: Reference Range: Vitamin D status Range Deficiency <20 ng/mL Mild Deficiency 20-30 ng/mL Sufficiency 30-100 ng/mL Toxicity >100 ng/mL Interpretation and review of laboratory results Abnormal [facility] Covid-19 PCR (CVDTB)on 07-07 SARS-CoV-2 (COVID-19) RNA KOREY+probe Ql (Unsp spec) Not detected Normal NOT DETECTED [facility] Comment on above: Result Comment: This test is not yet approved or cleared by the [place] FDA. When there are no FDA-approved or cleared tests available, and other criteria are met, FDA can make tests available under an emergency access mechanism called an Emergency Use Authorization (EUA). The EUA for this test is supported by the [place] of Health and Human Service's (HHS's) declaration [...] SARS-CoV-2. Performed By: #### C VDTBH #### [facility] [address] [place] [id number] Saeid Snider GROUP A STREP CULTUREon 07-07 S. pyogenes Ag Ql (Unsp spec) Culture Observations: NEGATIVE FOR GROUP A STREPTOCOCCUS. Normal [facility] Comment on above: Performed By: #### G RASTCX, SSCRN #### [facility] [address] [place], [place] [address] Dr. Saeid Snider INFLUENZA A AND B AGon 08-02 INFLUANEGH SEE BELOW Normal [facility] Comment on above: Result Comment: Nega tive for Flu A protein angiten. Infection due to Flu A cannot be ruled out. Flu A angiten in the sample may be below the detection limit of the test. Performed By: #### I NFLUAB #### [facility] [address] [place] [address] Dr. Saeid Snider INFLUBNEGH SEE BELOW Normal [facility] Comment on above: Result Comment: Nega tive for Flu B protein antigen. Infection due to Flu B cannot be ruled out. Flu B antigen in the sample may be below the detection limit of the test. Performed By: #### I NFLUAB #### [facility] [address] [place] [address] Dr. Saeid Snider INFLUENZA A AG Negative Normal NEGATIVE SEE COMMENT [facility] Comment on above: Performed By: #### I NFLUAB #### [facility] [address] [place] [address] Dr. Saeid Snider INFLUENZA B AG Negative Normal NEGATIVE SEE COMMENT [facility] Comment on above: Performed By: #### I NFLUAB #### [facility] [address] [place] [address] Dr. Saeid Snider STREPT SCREENon 08-02-2022 STREP SCREEN A Negative Normal NEGATIVE [facility] Comment on above: Performed By: #### G RASTCX, SSCRN #### [facility] [address] [place] [address] Dr. Saeid Snider XR CHEST 2 Von [...] KITTY JEWELL Date: 2022-08-02 14:55 Normal [facility] Chlamydia/GC,DNA Ampon 08-27 Chlamydia Probe Negative Normal NEG [facility] Comment on above: Result Comment: CHLA [...] target. Performed By: #### S WCGP #### [facility] [address] [place] [address] [id number] Swimming Pool Attendant: Prasanna Michaels MD Gonorrhea Probe Negative Normal NEG [facility] Comment on above: Result Comment: NEIS [...] target. Performed By: #### S WCGP #### [facility] [address] [place] [id number] Swimming Pool Attendant: Prasanna Michaels MD CBC With Auto Differentialon 08-26-2020 Basophils (Bld) [#/Vol] 0.04 10*3/uL [place] Basophils/100 WBC (Bld) 1 % 0 - 2 % [place] Differential Type NOT REPORTED [place] Eosinophils (Bld) [#/Vol] 0.27 10*3/uL [place] Eosinophils/100 WBC (Bld) 4 % 1 - 4 % [place] Erythrocyte distribution width (RBC) [Ratio] 12.6 % 11.8 - 14.4 % [place] Hematocrit (Bld) [Volume fraction] 35.2 % Low 36.3 - 47.1 % [place] Hemoglobin (Bld) [Mass/Vol] 11.3 g/dL Low 11.9 - 15.1 g/dL [place] Immature granulocytes (Bld) [#/Vol] 0 % 0 [place] Immature granulocytes (Bld) [#/Vol] 10*3/uL [place] Interpretation and review of laboratory results Abnormal [place] Lymphocytes (Bld) [#/Vol] 2.34 10*3/uL [place] Lymphocytes/100 WBC (Bld) 37 % 24 - 43 % [place] MCH (RBC) [Entitic mass] 29.4 pg 25.2 - 33.5 pg [place] MCHC (RBC) [Mass/Vol] 32.1 g/dL 28.4 - 34.8 g/dL [place] MCV (RBC) [Entitic vol] 91.4 fL 82.6 - 102.9 fL [place] Monocytes (Bld) [#/Vol] 0.56 10*3/uL [place] Monocytes/100 WBC (Bld) 9 % 3 - 12 % [place] Platelet mean volume (Bld) [Entitic vol] 9.8 fL 8.1 - 13.5 fL [place] Platelets (Bld) [#/Vol] 282 10*3/uL [place] Platelets (Bld) [#/Vol] NOT REPORTED [place] RBC (Bld) [#/Vol] 3.85 10*6/uL Low 3.95 - 5.1 1 m/uL [place] RBC morphology finding Nom (Bld) NOT REPORTED [place] Segmented neutrophils/100 WBC (Bld) 49 % 36 - 65 % [place] Segs Absolute 3.12 [place] WBC (Bld) [#/Vol] 6.4 10*3/uL [place] WBC (Bld) [#/Vol] 0.0 10*3/uL 0.0 per 10 0 WBC [place] WBC Morphology NOT REPORTED [place] Basic Metab w/rfx MGon 08-25 (cont.) Normal [facility] Comment on above: Result Comment: Aver age GFR for 30-39 years old: 107 mL/min/1.73sq m Chronic Kidney Disease: <60 mL/min/1.73sq m Kidney failure: <15 mL/min/1.73sq m eGFR calculated using average adult body mass. Additional eGFR calculator available at: http://www.[employer]/multiple_crcl_2012.htm Performed By: #### C DP, HCG, BMPX #### [facility] [address] [place], [place] [phone] Swimming Pool Attendant: Chandler Mccall MD Anion gap [Moles/Vol] 7 mmol/L Low 9-17 [facility] Comment on above: Performed By: #### C DP, HCG, BMPX #### [facility] [address] [place] [address] Swimming Pool Attendant: Chandler Mccall MD BUN/CRE Ratio 11 Normal 9-20 [facility] Comment on above: Performed By: #### C DP, HCG, BMPX #### [facility] [address] [place], [place] [phone] Swimming Pool Attendant: Chandler Mccall MD Calcium [Mass/Vol] 9.8 mg/dL Normal 8.6-10.4 [facility] Comment on above: Performed By: #### C DP, HCG, BMPX #### [facility] [address] [place], [place] [phone] Swimming Pool Attendant: Chandler Mccall MD Chloride [Moles/Vol] 103 mmol/L Normal 98-107 [facility] Comment on above: Performed By: #### C DP, HCG, BMPX #### [facility] [address] [place], [place] [phone] Swimming Pool Attendant: Chandler Mccall MD CO2 [Moles/Vol] 27 mmol/L Normal 20-31 [facility] Comment on above: Performed By: #### C DP, HCG, BMPX #### [facility] [address] [place], [place] [phone] Swimming Pool Attendant: Chandler Mccall MD Creatinine [Mass/Vol] 0.66 mg/dL Normal 0.50-0.90 [facility] Comment on above: Performed By: #### C DP, HCG, BMPX #### [facility] [address] [place], [place] [phone] Swimming Pool Attendant: Chandler Mccall MD GFR, Amer >60 Normal >60 [facility] Comment on above: Performed By: #### C DP, HCG, BMPX #### [facility] [address] [place] [address] Swimming Pool Attendant: Chandler Mccall MD GFR,non Amer >60 Normal >60 [facility] Comment on above: Performed By: #### C DP, HCG, BMPX #### [facility] [address] [place], [place] [phone] Swimming Pool Attendant: Chandler Mccall MD Glucose [Mass/Vol] 95 mg/dL Normal 70-99 [facility] Comment on above: Performed By: #### C DP, HCG, BMPX #### [facility] [address] [place] [address] Swimming Pool Attendant: Chandler Mccall MD Potassium [Moles/Vol] 3.9 mmol/L Normal 3.7-5.3 [facility] Comment on above: Performed By: #### C DP, HCG, BMPX #### [facility] [address] [place], [place] [phone] Swimming Pool Attendant: Chandler Mccall MD Sodium [Moles/Vol] 137 mmol/L Normal 135-144 [facility] Comment on above: Performed By: #### C DP, HCG, BMPX #### [facility] [address] [place] [address] Swimming Pool Attendant: Chandler Mccall MD Urea nitrogen [Mass/Vol] 7 mg/dL Normal 6-20 [facility] Comment on above: Performed By: #### C DP, HCG, BMPX #### [facility] [address] [place] [address] Swimming Pool Attendant: Chandler Mccall MD Staging: NOT REPORTED Normal [facility] Comment on above: Performed By: #### C DP, HCG, BMPX #### [facility] [address] [place] [address] Swimming Pool Attendant: Chandler Mccall MD Basic Metabolic Panel w/ Ref tommy to MGon 08-25-2020 Anion gap [Moles/Vol] 7 mmol/L Low 9 - 17 mmol/L [place] Bun/Cre Ratio 11 [place] Calcium [Mass/Vol] 9.8 mg/dL 8.6 - 10. 4 mg/dL [place] Chloride [Moles/Vol] 103 mmol/L 98 - 10 7 mmol/L [place] CO2 [Moles/Vol] 27 mmol/L 20 - 31 mmol/L [place] Creatinine [Mass/Vol] 0.66 mg/dL 0.5 - 0.9 mg/dL [place] GFR >60 >60 mL/min [place] GFR Non- >60 >60 mL/min [place] GFR/1.73 sq M predicted among non-blacks MDRD (S/P/Bld) [Vol rate/Area] NOT REPORTED [place] GFR/1.73 sq M predicted among non-blacks MDRD (S/P/Bld) [Vol rate/Area] [place] Comment on above: Average GFR for 30-3 9 years old: 107 mL/min/1.73sq m Chronic Kidney Disease: <60 mL/min/1.73sq m Kidney failure: <15 mL/min/1.73sq m eGFR calculated using average adult body mass. Additional eGFR calculator available at: http://www.[employer]/multiple_crcl_2012.htm Glucose [Mass/Vol] 95 mg/dL 70 - 99 mg/dL [place] Interpretation and review of laboratory results Abnormal [place] Potassium [Moles/Vol] 3.9 mmol/L 3.7 - 5.3 mmol/L [place] Sodium [Moles/Vol] 137 mmol/L 135 - 144 mmol/L [place] Urea nitrogen [Mass/Vol] 7 mg/dL 6 - 20 mg/dL [place] CBC Auto Differentialon 08-07 Basophils (Bld) [#/Vol] 0.10 10*3/uL [place] Basophils/100 WBC (Bld) 1 % 0 - 2 % [place] Differential Type YES [place] Eosinophils (Bld) [#/Vol] 0.20 10*3/uL [place] Eosinophils/100 WBC (Bld) 4 % 0 - 5 % [place] Erythrocyte distribution width (RBC) [Ratio] 12.7 % 12.1 - 15.2 % [place] Hematocrit (Bld) [Volume fraction] 33.8 % Low 36 - 46 % [place] Hemoglobin (Bld) [Mass/Vol] 11.5 g/dL Low 12 - 16 g/dL [place] Interpretation and review of laboratory results Abnormal [place] Lymphocytes (Bld) [#/Vol] 2.40 10*3/uL [place] Lymphocytes/100 WBC (Bld) 39 % 15 - 40 % [place] MCH (RBC) [Entitic mass] 29.6 pg 26 - 34 pg [place] MCHC (RBC) [Mass/Vol] 34.1 g/dL 31 - 37 g/dL [place] MCV (RBC) [Entitic vol] 86.8 fL 80 - 100 fL [place] Monocytes (Bld) [#/Vol] 0.50 10*3/uL [place] Monocytes/100 WBC (Bld) 8 % 4 - 8 % [place] Platelets (Bld) [#/Vol] 291 10*3/uL [place] RBC (Bld) [#/Vol] 3.90 10*6/uL Low 4 - 5.2 m/uL [place] Segmented neutrophils/100 WBC (Bld) 48 % 47 - 75 % [place] Segs Absolute 3.10 [place] WBC (Bld) [#/Vol] NOT REPORTED per 100 WBC [place] WBC (Bld) [#/Vol] 6.3 10*3/uL [place] CBC with Diffon 08-25-2020 Abs. Basophil 0.10 k/uL Normal 0.0-0.2 [facility] Comment on above: Performed By: #### C DP, HCG, BMPX #### [facility] [address] [place] [phone] Swimming Pool Attendant: Chandler Mccall MD Abs.Neutrophil (Seg) 3.10 k/uL Normal 2.5-7.0 [facility] Comment on above: Performed By: #### C DP, HCG, BMPX #### [facility] [address] [place] [phone] Swimming Pool Attendant: Chandler Mccall MD Auto Diff Performed YES Normal [facility] Comment on above: Performed By: #### C DP, HCG, BMPX #### [facility] [address] [place] [phone] Swimming Pool Attendant: Chandler Mccall MD Basophils/100 WBC (Bld) 1 % Normal 0-2 [facility] Comment on above: Performed By: #### C DP, HCG, BMPX #### [facility] [address] [place] [address] Swimming Pool Attendant: Chandler Mccall MD Eosinophils (Bld) [#/Vol] 0.20 10*3/uL Normal 0.0-0.4 [facility] Comment on above: Performed By: #### C DP, HCG, BMPX #### [facility] [address] [place] [phone] Swimming Pool Attendant: Chandler Mccall MD Eosinophils/100 WBC (Bld) 4 % Normal 0-5 [facility] Comment on above: Performed By: #### C DP, HCG, BMPX #### [facility] [address] [place] [phone] Swimming Pool Attendant: Chandler Mccall MD Erythrocyte distribution width (RBC) [Ratio] 12.7 % Normal 12.1-15.2 [facility] Comment on above: Performed By: #### C DP, HCG, BMPX #### [facility] [address] [place] [address] Swimming Pool Attendant: Chandler Mccall MD Hematocrit (Bld) [Volume fraction] 33.8 % Low 36-46 [facility] Comment on above: Performed By: #### C DP, HCG, BMPX #### [facility] [address] [place] [phone] Swimming Pool Attendant: Chandler Mccall MD Hemoglobin (Bld) [Mass/Vol] 11.5 g/dL Low 12.0-16.0 [facility] Comment on above: Performed By: #### C DP, HCG, BMPX #### [facility] [address] [place] [address] Swimming Pool Attendant: Chandler Mccall MD Lymphocytes (Bld) [#/Vol] 2.40 10*3/uL Normal 1.0-4.8 [facility] Comment on above: Performed By: #### C DP, HCG, BMPX #### [facility] [address] [place] [address] Swimming Pool Attendant: Chandler Mccall MD Lymphocytes/100 WBC (Bld) 39 % Normal 15-40 [facility] Comment on above: Performed By: #### C DP, HCG, BMPX #### [facility] [address] [place], [place] [phone] Swimming Pool Attendant: Chandler Mccall MD MCH (RBC) [Entitic mass] 29.6 pg Normal 26-34 [facility] Comment on above: Performed By: #### C DP, HCG, BMPX #### [facility] [address] [place], [place] [phone] Swimming Pool Attendant: Chandler Mccall MD MCHC (RBC) [Mass/Vol] 34.1 g/dL Normal 31-37 [facility] Comment on above: Performed By: #### C DP, HCG, BMPX #### [facility] [address] [place] [address] Swimming Pool Attendant: Chandler Mccall MD MCV (RBC) [Entitic vol] 86.8 fL Normal 80-100 [facility] Comment on above: Performed By: #### C DP, HCG, BMPX #### [facility] [address] [place] [phone] Swimming Pool Attendant: Chandler Mccall MD Monocytes (Bld) [#/Vol] 0.50 10*3/uL Normal 0.0-1.0 [facility] Comment on above: Performed By: #### C DP, HCG, BMPX #### [facility] [address] [place] [address] Swimming Pool Attendant: Chandler Mccall MD Monocytes/100 WBC (Bld) 8 % Normal 4-8 [facility] Comment on above: Performed By: #### C DP, HCG, BMPX #### [facility] [address] [place] [address] Swimming Pool Attendant: Chandler Mccall MD Neutrophil (Seg) 48 % Normal 47-75 [facility] Comment on above: Performed By: #### C DP, HCG, BMPX #### [facility] [address] [place] [phone] Swimming Pool Attendant: Chandler Mccall MD Platelets (Bld) [#/Vol] 291 10*3/uL Normal 140-450 [facility] Comment on above: Performed By: #### C DP, HCG, BMPX #### [facility] [address] [place] [address] Swimming Pool Attendant: Chandler Mccall MD RBC (Bld) [#/Vol] 3.90 10*6/uL Low 4.0-5.2 [facility] Comment on above: Performed By: #### C DP, HCG, BMPX #### [facility] [address], [place] [id number] Swimming Pool Attendant: Chandler Mccall MD WBC (Bld) [#/Vol] 6.3 10*3/uL Normal 3.5-11.0 [facility] Comment on above: Performed By: #### C DP, HCG, BMPX #### [facility] [address], [place] [id number] Swimming Pool Attendant: Chandler Mccall MD Abs.Imm.Granulocyte NOT REPORTED Normal 0.00-0.30 [facility] Comment on above: Performed By: #### C DP, HCG, BMPX #### [facility] [address], [place] [id number] Swimming Pool Attendant: Chandler Mccall MD NRBC Automated NOT REPORTED Normal [facility] Comment on above: Performed By: #### C DP, HCG, BMPX #### [facility] [address], [place] [id number] Swimming Pool Attendant: Chandler Mccall MD Immature granulocytes (Bld) [#/Vol] NOT REPORTED Normal 0 [place], [place] Comment on above: Performed By: #### C DP, HCG, BMPX #### [facility] [address], [place] [phone] Swimming Pool Attendant: Chandler Mccall MD Platelet mean volume (Bld) [Entitic vol] NOT REPORTED Normal 6.0-12.0 [place], [place] Comment on above: Performed By: #### C DP, HCG, BMPX #### [facility] [address], [place] [phone] Swimming Pool Attendant: Chandler Mccall MD Platelets (Bld) [#/Vol] NOT REPORTED Normal [place] Comment on above: Performed By: #### C DP, HCG, BMPX #### [facility] [address] [place] [address] Swimming Pool Attendant: Chandler Mccall MD RBC morphology finding Nom (Bld) NOT REPORTED Normal [place] Comment on above: Performed By: #### C DP, HCG, BMPX #### [facility] [address] [place] [address] Swimming Pool Attendant: Chandler Mccall MD WBC Morphology NOT REPORTED Normal [place] Comment on above: Performed By: #### C DP, HCG, BMPX #### [facility] [address], [place] [phone] Swimming Pool Attendant: Chandler Mccall MD HCG Qualitative, Serumon hCG Qual Negative NEGATIVE [place] Comment on above: Specimens with hCG l evels near the threshold of the test (25 mIU/mL) may give a negative or indeterminate result. In such cases, another test should be performed with a new specimen in 48-72 hours. If early is suspected clinically in this setting, correlation with quantitative serum b-hCG level is suggested. [facility] has confirmed the use of plasma for this test. This has not been cleared or approved by the U.S. Food and Drug Administration. The FDA has determined that such clearance is not necessary. HCG Screen, Bloodon 08-25-19 21 HCG Qn Negative Normal NEG [facility] Comment on above: Result Comment: Spec imens with hCG levels near the threshold of the test (25 mIU/mL) may give a negative or indeterminate result. In such cases, another test should be performed with a new specimen in 48-72 hours. If early is suspected clinically in this setting, correlation with quantitative serum b-hCG level is suggested. [facility] has confirmed the use of plasma for this test. This has not been cleared or approved by the U.S. Food and Drug Administration. The FDA has determined that such clearance is not necessary. Performed By: #### C DP, HCG, BMPX #### [facility] [address] [place] [address] Swimming Pool Attendant: Chandler Mccall MD TSH without Reflexon 021 TSH Qn 1.51 m[IU]/L [place], [place] Thyroid Stim. Horm.on 2020 TSH Qn 1.51 m[IU]/L Normal 0.30-5.00 [facility] Comment on above: Performed By: #### T SH #### [facility] [address] [place] [address] Swimming Pool Attendant: Chandler Mccall MD Trichomonas/Wet Prepon 08-25 Trichomonas/Wet Prep Specimen Descriptio n .VAGINA Special Requests NOT REPORTED Direct Exam NO WBC NO EPI NOTRICH NOBACTERIA NO CLUE CELLS NO YEAST Report Status FINAL 08/25/2020 Normal [facility] Comment on above: Performed By: #### W P #### [facility] [address] [place] [address] Swimming Pool Attendant: Chandler Mccall MD Wet Prep, Genitalon 08-25-19 21 Direct Exam NOTRICH [facility], [place] Direct Exam NO YEAST [place] Direct Exam NO EPI [facility] Direct Exam NOBACTERIA [facility] Direct Exam NO CLUE CELLS [facility], [place] Special Requests NOT REPORTED [place] Specimen Description .VAGINA [place] WBC (Bld) [#/Vol] NO WBC [facility] [place] HEAD WITHOUT CONTRAST (ST ROKE)on 05-11-2020 CT HEAD WITHOUT CONTRAST (STROKE) EXAMINATION: [...] on SunMay 10, 2020 11:56:58 PM EDT [facility] Comment on above: Order Comment: Injur [...] on SunMay 11, 2020 12:01:24 AM EDT [facility] Comment on above: Order Comment: Injur [...] Intrauterine device in place. Workstation ID: [id number] [employer] Interface, Rad In Nino ji Speechq - 05/11/2020 12:04 AM EDT [...] Intrauterine device in place. Workstation ID: [id number] [employer] EXAMINATION: CT KIDN EY STONE HISTORY: ORDERING [...] appear unremarkable. The osseous structures appear unremarkable. [facility] CT HEAD WITHOUT CONTRAST ([facility])on 05-10-2020 EXAMINATION: CT HEAD WITHOUT CONTRAST (STROKE) [...] cells are clear. The calvarium appears intact. [facility] No evidence for acut e intracranial hemorrhage or mass effect. No acute abnormality is seen on this noncontrast head CT. However, please note MRI is more sensitive for detection of acute/hyperacute stroke. Findings discussed with Dr. 10 minutes in the ED at 11:53 p.m.. Workstation ID: [id number] [facility] Todd, Felipe Davidsonq - 05/10/2020 11:59 PM EDT EXAMINATION: CT [...] ED at 11:53 p.m.. Workstation ID: [id number] [facility] POC Basic Metabolic Panelon 05-10-2020 Calcium.ionized (Bld) [Mass/Vol] 4.7 mg/dL 4.5 - 5.3 mg/dL [facility] Chloride [Moles/Vol] 103 mmol/L 98 - 10 8 mmol/L [facility] CO2 [Moles/Vol] 25 mmol/L 21 - 32 mmol/L [facility] Creatinine [Mass/Vol] 0.67 mg/dL 0.40 - 1.10 [facility] GFR/1.73 sq M.predicted MDRD (S/P/Bld) [Vol rate/Area] 111 mL/min/{1.73_m2} >=60 mL/min/1.73 m2 [facility] Glucose [Mass/Vol] 139 mg/dL High 65 - 99 mg/dL [facility] Interpretation and review of laboratory results Abnormal [facility] Potassium [Moles/Vol] 3.1 mmol/L Low 3.5 - 5.1 mmol/L [facility] Sodium [Moles/Vol] 142 mmol/L 135 - 145 mmol/L [facility] Urea nitrogen [Mass/Vol] 10 mg/dL 8 - 25 mg/dL [facility] POC CBC and Differentialon 1 Erythrocyte distribution width (RBC) [Entitic vol] 12.9 % 11.6 - 14.8 % [facility] Hematocrit (Bld) [Volume fraction] 39.8 % 36 - 46 % [facility] Hemoglobin (Bld) [Mass/Vol] 13.7 g/dL 12 - 16 g/dL [facility] Interpretation and review of laboratory results Abnormal [facility] Lymphocytes (Bld) [#/Vol] 2.2 10*3/uL [facility] Lymphocytes/100 WBC (Bld) 15.2 % [facility] MCH (RBC) [Entitic mass] 29.8 pg 26 - 34 pg [facility] MCHC (RBC) [Mass/Vol] 34.4 g/dL 31 - 37 g/dL [facility] MCV (RBC) [Entitic vol] 86.7 fL 80 - 100 fL [facility] Mixed 1.5 % [facility] Mixed Abs 0.2 K/mcl [facility] Neutrophil Abs 12.1 High [facility] Neutrophils/100 WBC (Bld) 83.3 % [facility] Platelet mean volume (Bld) [Entitic vol] 11.2 fL 9.4 - 12.4 fL [facility] Platelets (Bld) [#/Vol] 308 10*3/uL [facility] RBC (Bld) [#/Vol] 4.59 10*6/uL [facility] e[facility] WBC (Bld) [#/Vol] 14.50 10*3/uL [facility] POC , Urineon 05-10 Beta HCG ( test) Ql (U) Dilute urine specimens, as indicated by a low specific gravity (<1.010) may not contain territory sales representative levels of hCG. If is still suspected, a serum test or repeat urine test using a first morning urine specimen should be considered. [facility] HCG ( test) Ql (U) Negative Negative [facility] Interpretation and review of laboratory results Normal [facility] POC Urinalysis Dipstick, Aut oon 05-10-2020 Bilirubin Ql (U) Negative Negative [facility] th Glucose Ql (U) Negative Negative mg/dL [facility] Hemoglobin Ql (U) Large Abnormal Negative [facility] Interpretation and review of laboratory results Abnormal [facility] Ketones Ql (U) Negative Negative mg/dL [facility] Leukocyte esterase Test strip Ql (U) Moderate Abnormal Negative [facility] Nitrite Ql (U) Negative Negative [facility] pH (U) 5.0 [pH] [facility] Protein Ql (U) 100 Abnormal Negative mg/dL [facility] Specific gravity (U) [Rel density] >=1.030 High [facility] Urobilinogen Qn (U) 0.2 mg/dL <2.0 [facility] Cult,Urineon 04-27-2020 Cult,Urine Specimen Description .Random Urine Special Requests NOT REPORTED Culture NO GROWTH Report Status FINAL 04/27/2020 [facility] Comment on above: Performed By: #### U #### [facility] [address] [place] [address] Swimming Pool Attendant: Prasanna Michaels MD [facility] [address] [place] [address] Swimming Pool Attendant: Florentino Galvan MD Basic Metab w/rfx MGon 04-25 (cont.) [facility] Comment on above: Result Comment: Aver age GFR for 30-39 years old: 107 mL/min/1.73sq m Chronic Kidney Disease: <60 mL/min/1.73sq m Kidney failure: <15 mL/min/1.73sq m eGFR calculated using average adult body mass. Additional eGFR calculator available at: http://www.[employer]/multiple_crcl_2012.htm Performed By: #### T SH #### [facility] [address] [place] [address] Swimming Pool Attendant: Chandler Mccall MD Anion gap [Moles/Vol] 10 mmol/L Normal 04-22 [facility] Comment on above: Performed By: #### T SH #### [facility] [address] [place] [address] Swimming Pool Attendant: Chandler Mccall MD BUN/CRE Ratio 17 Normal 04-25 [facility] Comment on above: Performed By: #### T SH #### [facility] Lab [address] [place], [place] [phone] Swimming Pool Attendant: Chandler Mccall MD Calcium [Mass/Vol] 9.2 mg/dL Normal 8.6-10.4 [facility] Comment on above: Performed By: #### T SH #### [facility] [address], [place] [phone] Swimming Pool Attendant: Chandler Mccall MD Chloride [Moles/Vol] 103 mmol/L Normal 98-107 [facility] Comment on above: Performed By: #### T SH #### [facility] [address] [place] [address] Swimming Pool Attendant: Chandler Mccall MD CO2 [Moles/Vol] 25 mmol/L Normal 20-31 [facility] Comment on above: Performed By: #### T SH #### [facility] [address] [place] [address] Swimming Pool Attendant: Chandler Mccall MD Creatinine [Mass/Vol] 0.70 mg/dL Normal 0.50-0.90 [facility] Comment on above: Performed By: #### T SH #### [facility] [address], [place] [phone] Swimming Pool Attendant: Chandler Mccall MD GFR, Amer >60 Normal >60 [facility] Comment on above: Performed By: #### T SH #### [facility] [address], [place] [phone] Swimming Pool Attendant: Chandler Mccall MD GFR,non Amer >60 Normal >60 [facility] Comment on above: Performed By: #### T SH #### [facility] [address], [place] [phone] Swimming Pool Attendant: Chandler Mccall MD Glucose [Mass/Vol] 128 mg/dL High 70-99 [facility] Comment on above: Performed By: #### T SH #### [facility] [address] [place], [place] [phone] Swimming Pool Attendant: Chandler Mccall MD Potassium [Moles/Vol] 3.9 mmol/L Normal 3.7-5.3 [facility] Comment on above: Performed By: #### T SH #### [facility] [address], [place] [phone] Swimming Pool Attendant: Chandler Mccall MD Sodium [Moles/Vol] 138 mmol/L Normal 135-144 [facility] Comment on above: Performed By: #### T SH #### [facility] [address] [place] [address] Swimming Pool Attendant: Chandler Mccall MD Urea nitrogen [Mass/Vol] 12 mg/dL Normal 6-20 [facility] Comment on above: Performed By: #### T SH #### [facility] [address], [place] [phone] Swimming Pool Attendant: Chandler Mccall MD Staging: NOT REPORTED Normal [facility] Comment on above: Performed By: #### T SH #### [facility] [address] [place] [address] Swimming Pool Attendant: Chandler Mccall MD Basic Metabolic Panel w/ Ref tommy to MGon 04-25-2020 Anion gap [Moles/Vol] 10 mmol/L 9 - 17 mmol/L [place] Bun/Cre Ratio 17 [place] Calcium [Mass/Vol] 9.2 mg/dL 8.6 - 10. 4 mg/dL [place] Chloride [Moles/Vol] 103 mmol/L 98 - 10 7 mmol/L [place] CO2 [Moles/Vol] 25 mmol/L 20 - 31 mmol/L [place] Creatinine [Mass/Vol] 0.7 mg/dL 0.5 - 0.9 mg/dL [place] GFR >60 >60 mL/min [place] GFR Non- >60 >60 mL/min [place] GFR/1.73 sq M predicted among non-blacks MDRD (S/P/Bld) [Vol rate/Area] [place] Comment on above: Average GFR for 30-3 9 years old: 107 mL/min/1.73sq m Chronic Kidney Disease: <60 mL/min/1.73sq m Kidney failure: <15 mL/min/1.73sq m eGFR calculated using average adult body mass. Additional eGFR calculator available at: http://www.[employer]/multiple_crcl_2012.htm GFR/1.73 sq M predicted among non-blacks MDRD (S/P/Bld) [Vol rate/Area] NOT REPORTED [place] Glucose [Mass/Vol] 128 mg/dL High 70 - 99 mg/dL [place] Interpretation and review of laboratory results Abnormal [place] Potassium [Moles/Vol] 3.9 mmol/L 3.7 - 5.3 mmol/L [place] Sodium [Moles/Vol] 138 mmol/L 135 - 144 mmol/L [place] Urea nitrogen [Mass/Vol] 12 mg/dL 6 - 20 mg/dL [place] CBC Auto Differentialon 04-07 Basophils (Bld) [#/Vol] 0.00 10*3/uL [place] Basophils/100 WBC (Bld) 1 % 0 - 2 % [place] Differential Type YES [place] Eosinophils (Bld) [#/Vol] 0.40 10*3/uL [place] Eosinophils/100 WBC (Bld) 5 % 0 - 5 % [place] Erythrocyte distribution width (RBC) [Ratio] 12.7 % 12.1 - 15.2 % [place] Hematocrit (Bld) [Volume fraction] 37.1 % 36 - 46 % [place] Hemoglobin (Bld) [Mass/Vol] 12.7 g/dL 12 - 16 g/dL [place] Lymphocytes (Bld) [#/Vol] 2.50 10*3/uL [place] Lymphocytes/100 WBC (Bld) 31 % 15 - 40 % [place] MCH (RBC) [Entitic mass] 29.9 pg 26 - 34 pg [place] MCHC (RBC) [Mass/Vol] 34.2 g/dL 31 - 37 g/dL [place] MCV (RBC) [Entitic vol] 87.4 fL 80 - 100 fL [place] Monocytes (Bld) [#/Vol] 0.60 10*3/uL [place] Monocytes/100 WBC (Bld) 7 % 4 - 8 % [place] Platelet mean volume (Bld) [Entitic vol] NOT REPORTED 6 - 12 fL [place] Platelets (Bld) [#/Vol] NOT REPORTED [place] Platelets (Bld) [#/Vol] 292 10*3/uL [place] RBC (Bld) [#/Vol] 4.24 10*6/uL 4 - 5.2 m/uL [place] RBC morphology finding Nom (Bld) NOT REPORTED [place] Segmented neutrophils/100 WBC (Bld) 56 % 47 - 75 % [place] Segs Absolute 4.60 [place] WBC (Bld) [#/Vol] 8.1 10*3/uL [place] WBC (Bld) [#/Vol] NOT REPORTED per 100 WBC [place] WBC Morphology NOT REPORTED [place], [place] CBC with Diffon 04-25-2020 Abs. Basophil 0.00 k/uL Normal 0.0-0.2 [facility] Comment on above: Performed By: #### T SH #### [facility] [address] [place] [address] Swimming Pool Attendant: Chandler Mccall MD Abs.Neutrophil (Seg) 4.60 k/uL Normal 2.5-7.0 [facility] Comment on above: Performed By: #### T SH #### [facility] [address], [place] [phone] Swimming Pool Attendant: Chandler Mccall MD Auto Diff Performed YES Normal [facility] Comment on above: Performed By: #### T SH #### [facility] [address], [place] [phone] Swimming Pool Attendant: Chandler Mccall MD Basophils/100 WBC (Bld) 1 % Normal 0-2 [facility] Comment on above: Performed By: #### T SH #### [facility] [address], [place] [phone] Swimming Pool Attendant: Chandler Mccall MD Eosinophils (Bld) [#/Vol] 0.40 10*3/uL Normal 0.0-0.4 [facility] Comment on above: Performed By: #### T SH #### [facility] [address] [place] [address] Swimming Pool Attendant: Chandler Mccall MD Eosinophils/100 WBC (Bld) 5 % Normal 0-5 [facility] Comment on above: Performed By: #### T SH #### [facility] [address] [place] [address] Swimming Pool Attendant: Chandler Mccall MD Erythrocyte distribution width (RBC) [Ratio] 12.7 % Normal 12.1-15.2 [facility] Comment on above: Performed By: #### T SH #### [facility] [address] [place] [address] Swimming Pool Attendant: Chandler Mccall MD Hematocrit (Bld) [Volume fraction] 37.1 % Normal 36-46 [facility] Comment on above: Performed By: #### T SH #### [facility] [address] [place] [address] Swimming Pool Attendant: Chandler Mccall MD Hemoglobin (Bld) [Mass/Vol] 12.7 g/dL Normal 12.0-16.0 [facility] Comment on above: Performed By: #### T SH #### [facility] [address] [place] [address] Swimming Pool Attendant: Chandler Mccall MD Lymphocytes (Bld) [#/Vol] 2.50 10*3/uL Normal 1.0-4.8 [facility] Comment on above: Performed By: #### T SH #### [facility] [address], [place] [phone] Swimming Pool Attendant: Chandler Mccall MD Lymphocytes/100 WBC (Bld) 31 % Normal 15-40 [facility] Comment on above: Performed By: #### T SH #### [facility] [address] [place] [address] Swimming Pool Attendant: Chandler Mccall MD MCH (RBC) [Entitic mass] 29.9 pg Normal 26-34 [facility] Comment on above: Performed By: #### T SH #### [facility] [address] [place] [address] Swimming Pool Attendant: Chandler Mccall MD MCHC (RBC) [Mass/Vol] 34.2 g/dL Normal 31-37 [facility] Comment on above: Performed By: #### T SH #### [facility] [address] [place] [address] Swimming Pool Attendant: Chandler Mccall MD MCV (RBC) [Entitic vol] 87.4 fL Normal 80-100 [facility] Comment on above: Performed By: #### T SH #### [facility] [address] [place] [address] Swimming Pool Attendant: Chandler Mccall MD Monocytes (Bld) [#/Vol] 0.60 10*3/uL Normal 0.0-1.0 [facility] Comment on above: Performed By: #### T SH #### [facility] [address] [place] [address] Swimming Pool Attendant: Chandler Mccall MD Monocytes/100 WBC (Bld) 7 % Normal 4-8 [facility] Comment on above: Performed By: #### T SH #### [facility] [address] [place] [address] Swimming Pool Attendant: Chandler Mccall MD Neutrophil (Seg) 56 % Normal 47-75 [facility] Comment on above: Performed By: #### T SH #### [facility] [address] [place] [address] Swimming Pool Attendant: Chandler Mccall MD Platelets (Bld) [#/Vol] 292 10*3/uL Normal 140-450 [facility] Comment on above: Performed By: #### T SH #### [facility] [address] [place] [address] Swimming Pool Attendant: Chandler Mccall MD RBC (Bld) [#/Vol] 4.24 10*6/uL Normal 4.0-5.2 [facility] Comment on above: Performed By: #### T SH #### [facility] [address] [place] [address] Swimming Pool Attendant: Chandler Mccall MD WBC (Bld) [#/Vol] 8.1 10*3/uL Normal 3.5-11.0 [facility] Comment on above: Performed By: #### T SH #### [facility] [address] [place] [address] Swimming Pool Attendant: Chandler Mccall MD Abs.Imm.Granulocyte NOT REPORTED Normal 0.00-0.30 [facility] Comment on above: Performed By: #### T SH #### [facility] [address] [place] [address] Swimming Pool Attendant: Chandler Mccall MD Immature granulocytes (Bld) [#/Vol] NOT REPORTED Normal 0 [facility] Comment on above: Performed By: #### T SH #### [facility] [address], [place] [phone] Swimming Pool Attendant: Chandler Mccall MD NRBC Automated NOT REPORTED Normal [facility] Comment on above: Performed By: #### T SH #### [facility] [address], [place] [phone] Swimming Pool Attendant: Chandler Mccall MD Platelet mean volume (Bld) [Entitic vol] NOT REPORTED Normal 6.0-12.0 [facility] Comment on above: Performed By: #### T SH #### [facility] [address], [place] [phone] Swimming Pool Attendant: Chandler Mccall MD Platelets (Bld) [#/Vol] NOT REPORTED Normal [facility] Comment on above: Performed By: #### T SH #### [facility] [address], [place] [phone] Swimming Pool Attendant: Chandler Mccall MD RBC morphology finding Nom (Bld) NOT REPORTED Normal [facility] Comment on above: Performed By: #### T SH #### [facility] [address] [place], [place] [address] Swimming Pool Attendant: Chandler Mccall MD WBC Morphology NOT REPORTED Normal [facility] Comment on above: Performed By: #### T SH #### [facility] [address], [place] [phone] Swimming Pool Attendant: Chandler Mccall MD HCG, ,Urineon 04-25 Beta HCG ( test) Ql (U) Negative Normal NEG [facility] Comment on above: Performed By: #### U HCG, UA, UMICAO #### [facility] [address], [place] [phone] Swimming Pool Attendant: Florentino Galvan MD Microscopic Urinalysison Amorphous, UA NOT REPORTED None [place] Bacteria, UA RARE Abnormal None [place] Casts UA NOT REPORTED /LPF [place] Crystals, UA NOT REPORTED None /HPF [place] Epithelial Cells UA 2 TO 5 /HPF [place] Interpretation and review of laboratory results Abnormal [place] Mucus, UA NOT REPORTED None [place] Other Observations UA NOT REPORTED NOT REQ. [place] RBC (U) [#/Vol] 2 TO 5 [place] Renal Epithelial, UA NOT REPORTED 0 /HPF [place] Trichomonas, UA NOT REPORTED None [facility] [place] WBC, UA 5 TO 10 0 /HPF [place], [place] Yeast, UA NOT REPORTED None [place], [place] Otheron 04-25-2020 Immature granulocytes (Bld) [#/Vol] NOT REPORTED 0 % [place], [place] , Urineon 0 Beta HCG ( test) Ql (U) Negative NEGATIVE [place] Urinalysis, Routineon 2019 Acetoacetic Acid,Ur Negative Normal NEG [facility] Comment on above: Performed By: #### U HCG, UA, UMICAO #### [facility] Lab [address] [place] [address] Swimming Pool Attendant: Florentino Galvan MD Bilirubin, SemiQt,Ur Negative Normal NEG [facility] Comment on above: Performed By: #### U HCG, UA, UMICAO #### [facility] Lab [address] [place] [address] Swimming Pool Attendant: Florentino Galvan MD Color (U) YELLOW Normal YEL [facility] Comment on above: Performed By: #### U HCG, UA, UMICAO #### [facility] Lab [address] [place] [address] Swimming Pool Attendant: Florentino Galvan MD Comment Normal [facility] Comment on above: Performed By: #### U HCG, UA, UMICAO #### [facility] [address] [place], [place] [id number] Swimming Pool Attendant: Florentino Galvan MD Glucose Ql (U) Negative Normal NEG [facility] Comment on above: Performed By: #### U HCG, UA, UMICAO #### [facility] [address] [place], [place] [id number] Swimming Pool Attendant: Florentino Galvan MD Hemoglobin, Ur TRACE Abnormal NEG [facility] Comment on above: Performed By: #### U HCG, UA, UMICAO #### [facility] Lab [address] [place] [address] Swimming Pool Attendant: Florentino Galvan MD Leukocyte esterase Test strip Ql (U) 1+ Abnormal NEG [facility] Comment on above: Performed By: #### U HCG, UA, UMICAO #### [facility] Lab [address] [place] [address] Swimming Pool Attendant: Florentino Galvan MD Nitrite,Ur Negative Normal NEG [facility] Comment on above: Performed By: #### U HCG, UA, UMICAO #### [facility] Lab [address] [place], [place] [id number] Swimming Pool Attendant: Florentino Galvan MD pH (U) 5.0 [pH] Normal 5.0-8.0 [facility] Comment on above: Performed By: #### U HCG, UA, UMICAO #### [facility] Lab [address] [place], [place] [id number] Swimming Pool Attendant: Florentino Galvan MD Protein Ql (U) Negative Normal NEG [facility] Comment on above: Performed By: #### U HCG, UA, UMICAO #### [facility] [address] [place], [place] [phone] Swimming Pool Attendant: Florentino Galvan MD Specific gravity (U) [Rel density] 1.025 Normal 1.005-1.030 [facility] Comment on above: Performed By: #### U HCG, UA, UMICAO #### [facility] Lab [address] [facility] [place] [address] Swimming Pool Attendant: Florentino Galvan MD Turbidity CLEAR Normal CLEAR [facility] Comment on above: Performed By: #### U HCG, UA, UMICAO #### [facility] [address] [place] [address] Swimming Pool Attendant: Florentino Galvan MD Urobilinogen,Ur Normal Normal NORM [facility] Comment on above: Performed By: #### U HCG, UA, UMICAO #### [facility] Lab [address] [place] [address] Swimming Pool Attendant: Florentino Galvan MD Urinalysis, reflex to micros copicon 04-25-2020 Bilirubin Urine Negative NEGATIVE [facility] [place] Color, UA YELLOW YELLOW [place] Glucose, Ur Negative NEGATIVE [facility] Interpretation and review of laboratory results Abnormal [place] Ketones Ql (U) Negative NEGATIVE [facility] Leukocyte esterase Test strip Ql (U) 1+ Abnormal NEGATIVE [facility] Nitrite, Urine Negative NEGATIVE [facility] pH, UA 5.0 [place], [place] Protein (U) [Mass/Vol] Negative NEGATIVE [facility] Specific Smoot, UA 1.025 [facility], [place] Turbidity UA CLEAR CLEAR [facility] Urinalysis Comments [place] Urine Hgb TRACE Abnormal NEGATIVE [facility] Urobilinogen, Urine Normal Normal [facility] Urinalysis,Microon 0 ----- Normal [facility] Comment on above: Performed By: #### U HCG, UA, UMICAO #### [facility] Lab [address] [facility] [place] [address] Swimming Pool Attendant: Florentino Galvan MD Bacteria LM.HPF (Urine sed) [#/Area] RARE Abnormal NONE [facility] Comment on above: Performed By: #### U HCG, UA, UMICAO #### [facility] Lab [address] [place] [address] Swimming Pool Attendant: Florentino Galvan MD Epithelial cells LM.HPF (Urine sed) [#/Area] 2 TO 5 Normal [facility] Comment on above: Performed By: #### U HCG, UA, UMICAO #### [facility] Lab [address] [place] [address] Swimming Pool Attendant: Florentino Galvan MD RBC (U) [#/Vol] 2 TO 5 Normal 0-2 [facility] Comment on above: Performed By: #### U HCG, UA, UMICAO #### [facility] Lab [address] [place] [address] Swimming Pool Attendant: Florentino Galvan MD WBC (U) [#/Vol] 5 TO 10 Normal 0 [facility] Comment on above: Performed By: #### U HCG, UA, UMICAO #### [facility] Lab [address] [place] [address] Swimming Pool Attendant: Florentino Galvan MD Amorphous sediment LM Ql (Urine sed) NOT REPORTED Normal [facility] Comment on above: Performed By: #### U HCG, UA, UMICAO #### [facility] Lab [address] [place] [address] Swimming Pool Attendant: Florentino Galvan MD Casts LM.LPF (Urine sed) [#/Area] NOT REPORTED Normal [facility] Comment on above: Performed By: #### U HCG, UA, UMICAO #### [facility] Lab [address] [place] [address] Swimming Pool Attendant: Florentino Galvan MD Crystals LM Nom (Urine sed) NOT REPORTED Normal [facility] Comment on above: Performed By: #### U HCG, UA, UMICAO #### [facility] Lab [address] [place] [address] Swimming Pool Attendant: Florentino Galvan MD Epithelial, Renal NOT REPORTED Normal 0 [facility] Comment on above: Performed By: #### U HCG, UA, UMICAO #### [facility] Lab [address] [place] [address] Swimming Pool Attendant: Florentino Galvan MD Mucus Strands NOT REPORTED Normal NONE [facility] Comment on above: Performed By: #### U HCG, UA, UMICAO #### [facility] Lab [address] [place] [address] Swimming Pool Attendant: Florentino Galvan MD Other Observations NOT REPORTED Normal NREQ [facility] Comment on above: Performed By: #### U HCG, UA, UMICAO #### [facility] Lab [address] [place] [address] Swimming Pool Attendant: Florentino Galvan MD Trichomonas NOT REPORTED Normal NONE [facility] Comment on above: Performed By: #### U HCG, UA, UMICAO #### [facility] Lab [address] [place] [address] Swimming Pool Attendant: Florentino Galvan MD Yeast LM Ql (Urine sed) NOT REPORTED Normal [facility] Comment on above: Performed By: #### U HCG, UA, UMICAO #### [facility] Lab [address] [place] [address] Swimming Pool Attendant: Florentino Galvan MD Cystoscopy, Remove Calculus, Simpleon [...] the procedure well with no immediate complications [facility] XR ABDOMEN /KUB/FLAT PLATE/1 VIEWon 10-22-2019 XR [...] calcifications likely phlebolithic. 4. Nonobstructive bowel pattern. [facility] Workstation ID: [id number] Dictated by: JENNIFER SALMON on SunOct 22, 2019 8:39:19 AM EDT Transcribed by: KOBI MAZARIEGOS on SunOct 22, 2019 9:02:09 AM EDT Finalized by: JENNIFER SALMON on SunOct 22, 2019 9:11:19 AM EDT Normal [facility] Comment on above: Order Comment: Injur y/Trauma [...] calcifications likely phlebolithic. 4. Nonobstructive bowel pattern. [employer] Workstation ID: [id number] [facility] EXAMINATION: XR ABDO MEN /KUB/FLAT PLATE/1 VIEW [...] nonspecific and nonobstructive. Bowel pattern is nonobstructive. [facility], Rad In Fu ji Speechq - 10/22/2019 [...] calcifications likely phlebolithic. 4. Nonobstructive bowel pattern. [employer] Workstation ID: [id number] [facility] XR OR FLUOROSCOPY TIMEon XR OR FLUOROSCOPY TIME This is an auto finalized result. Please refer to patient chart for further information. further information. further information. Normal [facility] Comment on above: Order Comment: Injur y/Trauma or Illness?:Illness/Other How long have you had these symptoms (acute/chronic)?:Acute Reason for exam?:bilateral stone removal, left stent placement Type of Exam?:Initial Additional signs and symptoms?:none Fluoro time in minutes:1.73 Fluoro dose in mGy?:29 XR OR Fluoroscopy Timeon This is an auto joni lized result. Please refer to patient chart for further information. [facility] XR OR RETROGRADE PYELOGRAMon 10-22-2019 Operative procedure with fluoroscopic guidance. Please see the procedural report for additional details. Workstation ID: [id number] [facility] EXAMINATION: XR OR RETROGRADE PYELOGRAM HISTORY: ORDERING SYSTEM PROVIDED HISTORY: stone, TECHNOLOGIST PROVIDED HISTORY: Illness/Other Reason for exam: bilateral stone removal, left stent placement Encounter Type: Initial Additional signs and symptoms: none Fluoro dose in mGy: 29 ORDERING SYSTEM PROVIDED DIAGNOSIS CODES: COMPARISON: KUB from [place] of 10/22/2027 at 8:19 a.m.. TECHNICAL DATA: [...] demonstrate limited filling of lower pole infundibulum. [facility] Interface, Rad In Fu ji Speechq - [...] report for additional details. Workstation ID: [id number] [facility] XR OR RETROGRADE PYELOGRAM EXAMINATION: XR OR RETROGRADE PYELOGRAM HISTORY: ORDERING SYSTEM PROVIDED HISTORY: stone, TECHNOLOGIST PROVIDED HISTORY: Illness/Other Reason for exam: bilateral stone removal, left stent placement Encounter Type: Initial Additional signs and symptoms: none Fluoro dose in mGy: 29 ORDERING SYSTEM PROVIDED DIAGNOSIS CODES: COMPARISON: KUB from [place] of 10/22/2027 at 8:19 a.m.. TECHNICAL DATA: [...] SunOct 22, 2019 3:58:25 PM EDT Normal [facility] Comment on above: Order Comment: Injur y/Trauma or Illness?:Illness/Other How long have you had these symptoms (acute/chronic)?:Acute Reason for exam?:bilateral stone removal, left stent placement Type of Exam?:Initial Additional signs and symptoms?:none Fluoro time in minutes:1.73 Fluoro dose in mGy?:29 hCG Urine, Qualitativeon HCG ( test) Ql (U) Negative Negative [facility] Interpretation and review of laboratory results Normal [facility] 10-21-2019 Anion gap [Moles/Vol] 10 mmol/L 10 - 20 mmol/L [facility] Calcium [Mass/Vol] 8.9 mg/dL 8.4 - 10. 2 mg/dL [facility] Chloride [Moles/Vol] 108 mmol/L 98 - 10 8 mmol/L [facility] Creatinine [Mass/Vol] 1.20 mg/dL High 0.40 - 1.10 [facility] GFR/1.73 sq M predicted among non-blacks MDRD (S/P/Bld) [Vol rate/Area] The eGFR should be used for monitoring renal function only and not for medication dosing. [facility] GFR/1.73 sq M.predicted CKD-EPI (S/P/Bld) [Vol rate/Area] 57 Low >=60 mL/min/1.73 m2 [facility] Glucose [Mass/Vol] 106 mg/dL High 65 - 99 mg/dL [facility] HCO3 [Moles/Vol] 26 mmol/L 21 - 32 mmol/L [facility] Interpretation and review of laboratory results Abnormal [facility] Potassium [Moles/Vol] 3.5 mmol/L 3.5 - 5.1 mmol/L [facility] Sodium [Moles/Vol] 140 mmol/L 135 - 145 mmol/L [facility] Urea nitrogen [Mass/Vol] 16 mg/dL 8 - 25 mg/dL [facility] Urea nitrogen/Creatinine [Mass ratio] 13.3 mg/mg [facility] CBC WITH AUTO DIFFERENTIALon 10-21-2019 Basophils (Bld) [#/Vol] 0.03 10*3/uL [facility] Basophils/100 WBC (Bld) 0.3 % [facility] Eosinophils (Bld) [#/Vol] 0.05 10*3/uL [facility] Eosinophils/100 WBC (Bld) 0.4 % [facility] Erythrocyte distribution width (RBC) [Entitic vol] 12.3 % 11.6 - 14.8 % [facility] Hematocrit (Bld) [Volume fraction] 36.9 % 36 - 46 % [facility] Hemoglobin (Bld) [Mass/Vol] 12.8 g/dL 12 - 16 g/dL [facility] Immature granulocytes (Bld) [#/Vol] 0.02 10*3/uL [facility] Immature granulocytes/100 WBC (Bld) 0.20 % [facility] Comment on above: The IG parameter is the percentage of metamyelocytes, myelocytes, and promyelocytes. Interpretation and review of laboratory results Abnormal [facility] Lymphocytes (Bld) [#/Vol] 1.17 10*3/uL [facility] Lymphocytes/100 WBC (Bld) 10.4 % [facility] MCH (RBC) [Entitic mass] 29.6 pg 26 - 34 pg [facility] MCHC (RBC) [Mass/Vol] 34.7 g/dL 31 - 37 g/dL [facility] MCV (RBC) [Entitic vol] 85.4 fL 80 - 100 fL [facility] Monocytes (Bld) [#/Vol] 0.61 10*3/uL [facility] Monocytes/100 WBC (Bld) 5.4 % [facility] Neutrophils (Bld) [#/Vol] 9.34 10*3/uL [facility] Neutrophils/100 WBC (Bld) 83.3 % [facility] Platelet mean volume (Bld) [Entitic vol] 9.9 fL 9 - 15.5 fL [facility] Platelets (Bld) [#/Vol] 283 10*3/uL [facility] RBC (Bld) [#/Vol] 4.32 10*6/uL [facility] WBC (Bld) [#/Vol] 11.22 10*3/uL [facility] CT KIDNEY STONEon 10-21-2019 CT KIDNEY STONE [...] on SunOct 21, 2019 5:34:33 PM EDT [facility] Comment on above: Order Comment: Injur y/Trauma or Illness?:Illness/Other How long have you had these symptoms (acute/chronic)?:Acute Reason for exam?:Flank pain; LLQ pain/hx kidney stone hx of kidney stones x 5 months Type of Exam?:Initial Additional signs and symptoms?:nausea HCG (QUALITATIVE)on 10-21-19 20 Beta HCG ( test) Ql Negative Negative [facility] Interpretation and review of laboratory results Normal [facility] Negative: The result is less than or equal to 5 mIU/mL of HCG. [facility] Hepatic Function Panel (LFT) on 10-21-2019 Albumin [Mass/Vol] 3.8 g/dL 3.2 - 5.2 g/dL [facility] ALP [Catalytic activity/Vol] 68 U/L 40 - 140 U/L [facility] ALT [Catalytic activity/Vol] 22 U/L 0 - 40 U/L [facility] AST [Catalytic activity/Vol] 19 U/L 0 - 45 U/L [facility] Bilirubin [Mass/Vol] 0.5 mg/dL 0 - 1.3 mg/dL [facility] Bilirubin.conjugated [Mass/Vol] 0.1 mg/dL 0 - 0.4 mg/dL [facility] Protein [Mass/Vol] 7.5 g/dL 6 - 8 g/dL [facility] alth Lipaseon 10-21-2019 Lipase [Catalytic activity/Vol] 157 U/L 73 - 393 U/L [facility] Otheron 10-21-2019 Extra Tube Hold for add-ons. [facility] Comment on above: Auto resulted. Interpretation and review of laboratory results Normal [facility] URINALYSISon 10-21-2019 Bacteria Auto Ql (U) None Seen None Se en /hpf [facility] Bilirubin Ql (U) Negative Negative [facility] th Calcium oxalate crystals Computer assisted (U) [#/Area] Rare Abnormal None Seen /hpf [facility] Clarity Refractometry automated (U) Cloudy Abnormal Clear [facility] Color (U) Yellow Colorless, Yellow [facility] Crystals.amorphous Computer assisted (U) [#/Area] Many Abnormal None Seen, Rare /hpf [facility] Epithelial cells.squamous Auto (Urine sed) [#/Area] 20 High [facility] Glucose Auto test strip (U) [Mass/Vol] Negative Negative mg/dL [facility] Hemoglobin Auto test strip Ql (U) Small Abnormal Negative [facility] Interpretation and review of laboratory results Abnormal [facility] Ketones (U) [Mass/Vol] Negative Negative mg/dL [facility] Leukocyte esterase Auto test strip Ql (U) Negative Negative [facility] Mucus Auto (Urine sed) [#/Area] Rare None Seen, Rare /lpf [facility] Nitrite Auto test strip Ql (U) Negative Negative [facility] pH (U) 8.5 [pH] High [facility] Protein (U) [Mass/Vol] 30 Abnormal Negative mg/dL [facility] Comment on above: False positive resul ts may occur in urines with large amounts of hemoglobin, pH greater than 8.0, contrast medium, or disinfectants including ammonium compounds. RBC Auto (Urine sed) [#/Area] 1 [facility] Specific gravity (U) [Rel density] 1.020 [facility] Urobilinogen (U) [Mass/Vol] <2.0 <2.0 mg/dL [facility] WBC Auto (Urine sed) [#/Area] 1 [facility] Microscopic examinat ion is performed on all urinalysis samples and only positive findings are reported. The test for blood on the chemical analytic portion of urinalysis may also be positive due to hemoglobinuria and myoglobinuria and if red blood cells are present they are quantified by microscopic examination. [facility] CT ABDOMEN/PELVIS WITHOUT CO NTRASTon 08-03-2019 CT [...] acute bowel inflammatory changes. Unremarkable appendix. Normal [facility] CBCon 08-02-2019 ABSOLUTE BAS 0.0 10*3/uL Normal 0.0-0.2 [facility] Comment on above: Performed By: #### A CBC, CHEM7F #### Testing performed at [address] [address] ABSOLUTE EOS 0.20 10*3/uL Normal 0.0-0.7 [facility] Comment on above: Performed By: #### A CBC, CHEM7F #### Testing performed at [address] [address] ABSOLUTE NEUTROPHIL COUNT 3.6 10*3/uL Normal 1.4-6.5 [facility] Comment on above: Performed By: #### A CBC, CHEM7F #### Testing performed at [place] [id number] Basophils/100 WBC (Bld) 0.1 % Normal 0.0-2.0 [facility] Comment on above: Performed By: #### A CBC, CHEM7F #### Testing performed at [address] [address] DTYPE AUTO DIFF Normal [facility] Comment on above: Performed By: #### A CBC, CHEM7F #### Testing performed at [address] [address] Eosinophils/100 WBC (Bld) 4.8 % Normal 0.0-11.0 [facility] Comment on above: Performed By: #### A CBC, CHEM7F #### Testing performed at [address] [address] Lymphocytes (Bld) [#/Vol] 0.40 10*3/uL Low 1.2-3.4 [facility] Comment on above: Performed By: #### A CBC, CHEM7F #### Testing performed at [address] [address] Lymphocytes/100 WBC (Bld) 8.2 % Low 20.0-55.0 [facility] Comment on above: Performed By: #### A CBC, CHEM7F #### Testing performed at [address] [address] Monocytes (Bld) [#/Vol] 0.4 10*3/uL Normal 0.0-0.7 [facility] Comment on above: Performed By: #### A CBC, CHEM7F #### Testing performed at [address] [address] Monocytes/100 WBC (Bld) 9.0 % Normal 0.0-10.0 [facility] Comment on above: Performed By: #### A CBC, CHEM7F #### Testing performed at [address] [address] Neutrophils/100 WBC (Bld) 77.9 % High 37.0-75.0 [facility] Comment on above: Performed By: #### A CBC, CHEM7F #### Testing performed at [address] [address] Erythrocyte distribution width (RBC) [Ratio] 13.0 % Normal 11.5-14.5 [facility] Comment on above: Performed By: #### A CBC CHEM7F #### Testing performed at [address] [address] Hematocrit (Bld) [Volume fraction] 37.5 % Normal 36.0-48.0 [facility] Comment on above: Performed By: #### A CBC CHEM7F #### Testing performed at [address] [address] Hemoglobin (Bld) [Mass/Vol] 12.7 g/dL Normal 12.0-16.0 [facility] Comment on above: Performed By: #### A CBC CHEM7F #### Testing performed at [address] [address] MCH (RBC) [Entitic mass] 29.9 pg Normal 26.0-35.0 [facility] Comment on above: Performed By: #### A CBC CHEM7F #### Testing performed at [address] [address] MCHC (RBC) [Mass/Vol] 33.8 g/dL Normal 27.0-37.0 [facility] Comment on above: Performed By: #### A CBC CHEM7F #### Testing performed at [address] [address] MCV (RBC) [Entitic vol] 88.7 fL Normal 80.0-100.0 [facility] Comment on above: Performed By: #### A CBC CHEM7F #### Testing performed at [address] [address] Platelet mean volume (Bld) [Entitic vol] 8.7 fL Normal 7.4-11.0 [facility] Comment on above: Performed By: #### A CBC CHEM7F #### Testing performed at [address] [address] Platelets (Bld) [#/Vol] 176 10*3/uL Normal 130.0-400.0 [facility] Comment on above: Performed By: #### A CBC CHEM7F #### Testing performed at [address] [place] [address] RBC (Bld) [#/Vol] 4.23 10*6/uL Normal 4.0-5.4 [facility] Comment on above: Performed By: #### A CBC, CHEM7F #### Testing performed at [address] [address] WBC (Bld) [#/Vol] 4.6 10*3/uL Normal 3.6-11.0 [facility] Comment on above: Performed By: #### A CBC, CHEM7F #### Testing performed at [address] [place] [address] CBC, EDIF, PLATELETon 2018 ABSOLUTE BASOPHIL COUNT 0.0 10*3/uL 0 - 0.2 10*3/uL [facility] Basophils/100 WBC (Bld) 0.1 % 0 - 2 % [facility] Differential cell count method Nom (Bld) AUTO DIFF % [facility] Eosinophils (Bld) [#/Vol] 0.20 10*3/uL 0 - 0.7 10*3/uL [facility] Eosinophils/100 WBC (Bld) 4.8 % 0 - 11 % [facility] Erythrocyte distribution width (RBC) [Ratio] 13.0 % 11.5 - 14.5 % [facility] Hematocrit (Bld) [Volume fraction] 37.5 % 36 - 48 % [facility] Hemoglobin (Bld) [Mass/Vol] 12.7 g/dL [facility] Lymphocytes (Bld) [#/Vol] 0.40 10*3/uL Low 1.2 - 3.4 10*3/uL [facility] Lymphocytes/100 WBC (Bld) 8.2 % Low 20 - 55 % [facility] MCH (RBC) [Entitic mass] 29.9 pg 26 - 35 PG [facility] MCHC (RBC) [Mass/Vol] 33.8 g/dL [facility] MCV (RBC) [Entitic vol] 88.7 fL [facility] Monocytes (Bld) [#/Vol] 0.4 10*3/uL 0 - 0.7 10*3/uL [facility] Monocytes/100 WBC (Bld) 9.0 % 0 - 10 % [facility] Neutrophils (Bld) [#/Vol] 3.6 10*3/uL 1.4 - 6.5 10*3/uL [facility] Neutrophils/100 WBC (Bld) 77.9 % High 37 - 75 % [facility] Platelet mean volume (Bld) [Entitic vol] 8.7 fL [facility] Platelets (Bld) [#/Vol] 176 10*3/uL 130 - 400 10*3/uL [facility] RBC (Bld) [#/Vol] 4.23 10*6/uL 4 - 5.4 10*6/uL [facility] WBC (Bld) [#/Vol] 4.6 10*3/uL 3.6 - 11 10*3/uL [facility] CHEM 7 FASTINGon 08-02-2019 Creatinine [Mass/Vol] 0.98 mg/dL Normal 0.52-1.04 [facility] Comment on above: Performed By: #### A CBC, CHEM7F #### Testing performed at [place] [id number] EST. GFR, >60 Normal [facility] Comment on above: Performed By: #### A CBC, CHEM7F #### Testing performed at [address] [address] EST. GFR,Non >60 Normal [facility] Comment on above: Performed By: #### A CBC, CHEM7F #### [place] [address] GFR/1.73 sq M predicted among non-blacks MDRD (S/P/Bld) [Vol rate/Area] Average GFR for 30-39 years old = 109. Normal [facility] Comment on above: Result Comment: Database Software Technician denny [facility] disease, GFR = <60. Kidney failure, GFR = <15. The GFR estimate is not adjusted for extreme body surface area or acute process, nor has it been validated for women or ethnic groups other than and . Performed By: #### A CBC, CHEM7F #### [place] [address] Urea nitrogen [Mass/Vol] 9 mg/dL Normal 7-20 [facility] Comment on above: Performed By: #### A CBC, CHEM7F #### Testing performed at [address] [address] Chloride [Moles/Vol] 100 mmol/L Normal 98-107 [facility] Comment on above: Performed By: #### A CBC, CHEM7F #### Testing performed at [address] [address] CO2 [Moles/Vol] 20 mmol/L Low 22-30 [facility] Comment on above: Performed By: #### A CBC, CHEM7F #### Testing performed at [address] [address] Glucose [Mass/Vol] 93 mg/dL Normal 70-100 [facility] Comment on above: Result Comment: NORMAL <100 mg/dL PREDIABETES 101-126 mg/dL DIABETES 126 mg/dL or higher Performed By: #### A CBC, CHEM7F #### Testing performed at [address] [address] Potassium [Moles/Vol] 3.6 mmol/L Normal 3.5-5.1 [facility] Comment on above: Performed By: #### A CBC, CHEM7F #### Testing performed at [address] [address] Sodium [Moles/Vol] 132 mmol/L Low 136-145 [facility] Comment on above: Performed By: #### A CBC, CHEM7F #### Testing performed at [address] [address] CHEM 7 (LYTES,BUN,CREA,GLUC) on 08-02-2019 Chloride [Moles/Vol] 100 mmol/L [facility] CO2 [Moles/Vol] 20 mmol/L Low [facility] Creatinine [Mass/Vol] 0.98 mg/dL [facility] GFR/1.73 sq M predicted among blacks MDRD (S/P/Bld) [Vol rate/Area] mL/min/{1.73_m2} ml/min/1.73 sq.m [facility] GFR/1.73 sq M predicted among non-blacks MDRD (S/P/Bld) [Vol rate/Area] mL/min/{1.73_m2} ml/min/1.73 sq.m [facility] GFR/1.73 sq M predicted among non-blacks MDRD (S/P/Bld) [Vol rate/Area] Average GFR for 30-39 years old = 109. [facility] Comment on above: Chronic Kidney disea se, GFR = <60. Kidney failure, GFR = <15. The GFR estimate is not adjusted for extreme body surface area or acute process, nor has it been validated for women or ethnic groups other than and . Glucose post fast [Mass/Vol] 93 mg/dL [facility] Comment on above: NORMAL <100 mg/dL PREDIABETES 101-126 mg/dL DIABETES 126 mg/dL or higher Potassium [Moles/Vol] 3.6 mmol/L [facility] Sodium [Moles/Vol] 132 mmol/L Low [facility] Urea nitrogen [Mass/Vol] 9 mg/dL [facility] CT ABDOMEN/PELVIS WITHOUT CO NTRASTon 08-02-2019 User, [...] of acute bowel inflammatory changes. Unremarkable appendix. [facility] EXAMINATION: CT ABDOMEN/PELVIS WITHOUT CONTRAST HISTORY: Flank [...] No significant pelvic free fluid is present. [facility] IMPRESSION: 6 mm rosemarie culus positioned at the left ureteropelvic junction, having [...] of acute bowel inflammatory changes. Unremarkable appendix. [facility] HCG QUALITATIVE, URINEon HCG ( test) Ql (U) Negative NEGATIVE [facility] LACTATE, BLOODon 08-02-2019 Lactate [Moles/Vol] 1.2 mmol/L [facility] LACTIC ACIDon 08-02-2019 Lactate [Moles/Vol] 1.2 mmol/L Normal 0.5-2.0 [facility] Comment on above: Performed By: #### L ACT #### Testing performed at [address] [address] Otheron 08-02-2019 Interpretation and review of laboratory results Abnormal [facility] Interpretation and review of laboratory results Abnormal [facility] URINALYSIS, MACROon 08-02-20 19 Bilirubin Ql (U) Negative NEGATIVE [facility] Clarity (U) CLEAR CLEAR [facility] Color (U) YELLOW YELLOW [facility] Glucose Test strip (U) [Mass/Vol] Negative NEGATIVE mg/dl [facility] Hemoglobin Ql (U) MODERATE Abnormal NEGATIVE [facility] Ketones (U) [Mass/Vol] Negative NEGATIVE mg/dl [facility] Leukocyte esterase Test strip Ql (U) Negative NEGATIVE [facility] Nitrite Ql (U) Negative NEGATIVE [facility] pH (U) 6.0 [pH] [facility] Protein Ql (U) 30 mg/dl Abnormal NEGATIVE [facility] Specific gravity (U) [Rel density] >1.030 High [facility] Urobilinogen (U) [Mass/Vol] 1.0 [facility] URINE HCG QUALon 08-02-2019 Beta HCG ( test) Ql (U) Negative Normal NEGATIVE [facility] Comment on above: Performed By: #### U HCGT, UMAC, UMIC #### Testing performed at [address] [address] URINE MACROSCOPICon 08-02-20 19 Bilirubin Ql (U) Negative Normal NEGATIVE [facility] Comment on above: Performed By: #### U HCGT, UMAC, UMIC #### Testing performed at [address] [address] Clarity (U) CLEAR Normal CLEAR [facility] Comment on above: Performed By: #### U HCGT, UMAC, UMIC #### Testing performed at [address] [address] Color (U) YELLOW Normal YELLOW [facility] Comment on above: Performed By: #### U HCGT, UMAC, UMIC #### Testing performed at [address] [address] Glucose Ql (U) Negative Normal NEGATIVE [facility] Comment on above: Performed By: #### U HCGT, UMAC, UMIC #### Testing performed at [address] [address] pH (U) 6.0 [pH] Normal 5.0-7.0 [facility] Comment on above: Performed By: #### U HCGT, UMAC, UMIC #### Testing performed at [address] [address] Protein (U) [Mass/Vol] 30 mg/dL Abnormal NEGATIVE [facility] Comment on above: Performed By: #### U HCGT, UMAC, UMIC #### Testing performed at [address] [address] URINE HEMOGLOBIN MODERATE Abnormal NEGATIVE [facility] Comment on above: Performed By: #### U HCGT, UMAC, UMIC #### Testing performed at [address] [address] URINE KETONE Negative Normal NEGATIVE [facility] Comment on above: Performed By: #### U HCGT, UMAC, UMIC #### Testing performed at [address] [address] URINE LEUKOTEST Negative Normal NEGATIVE [facility] Comment on above: Performed By: #### U HCGT, UMAC, UMIC #### Testing performed at [address] [address] URINE NITRATES Negative Normal NEGATIVE [facility] Comment on above: Performed By: #### U HCGT, UMAC, UMIC #### Testing performed at [address] [address] URINE SPEC GRAVITY >1.030 High 1.010-1.025 [facility] Comment on above: Performed By: #### U HCGT, UMAC, UMIC #### Testing performed at [address] [address] Urobilinogen Qn (U) 1.0 {Levi'U}/dL Normal 0.2-1.0 [facility] Comment on above: Performed By: #### U HCGT, UMAC, UMIC #### Testing performed at [address] [address] URINE MICROSCOPICon 08-02-20 19 Bacteria LM.HPF (Urine sed) [#/Area] TRACE Abnormal NEGATIVE [facility] Comment on above: Performed By: #### U HCGT, UMAC, UMIC #### Testing performed at [address] [address] Casts LM.LPF (Urine sed) [#/Area] NONE Normal NONE [facility] Comment on above: Performed By: #### U HCGT, UMAC, UMIC #### Testing performed at [address] [address] CRYSTAL NONE Normal [facility] Comment on above: Performed By: #### U HCGT, UMAC, UMIC #### Testing performed at [address] [address] Epithelial cells LM.HPF (Urine sed) [#/Area] TOO NUMEROUS TO COUNT Normal [facility] Comment on above: Performed By: #### U HCGT, UMAC, UMIC #### Testing performed at [address] [address] Mucus Ql (Urine sed) Negative Normal NEGATIVE [facility] Comment on above: Performed By: #### U HCGT, UMAC, UMIC #### Testing performed at [address] [address] RBC (U) [#/Vol] 20 TO 30 Normal NEGATIVE [facility] Comment on above: Performed By: #### U HCGT, UMAC, UMIC #### Testing performed at [address] [address] URINE COMMENT POSSIBLY CONTAMINATE D SPECIMEN, CULTURE MUST BE ORDERED SEPARATELY IF DEEMED NECESSARY. Normal [facility] Comment on above: Performed By: #### U HCGT, UMAC, UMIC #### Testing performed at [address] [address] WBC (U) [#/Vol] Negative Normal NEGATIVE [facility] Comment on above: Performed By: #### U HCGT, UMAC, UMIC #### Testing performed at [address] [address] Bacteria LM.HPF (Urine sed) [#/Area] TRACE Abnormal NEGATIVE [facility] Casts LM.LPF (Urine sed) [#/Area] NONE NONE /LPF [facility] Crystals LM Nom (Urine sed) NONE NONE [facility] Epithelial cells LM Ql (Urine sed) TOO NUMEROUS TO COUNT /HPF [facility] Mucus Ql (Urine sed) Negative NEGATIVE [facility] RBC LM.HPF (Urine sed) [#/Area] 20 TO 30 NEGATIVE /HPF [facility] Urine sediment comments LM Dustin (Urine sed) POSSIBLY CONTAMINATED SPECIMEN, CULTURE MUST BE ORDERED SEPARATELY IF DEEMED NECESSARY. [facility] WBC LM.HPF (Urine sed) [#/Area] Negative NEGATIVE /HPF [facility] URINE CULTUREon 07-31-2019 Bacteria identified Cx Nom (U) SPECIMEN DESCRIPTION URINE CLEAN CATCH UA DIPSTICK NITRITE NEGATIVE * Result Note: LEUKOCYTE POSITIVE * CULTURE ESCHERICHIA COLI * Result Note: 50,000-100,000 C/C/ML * * Result Note: Testing performed at [place] [id number] * REPORT STATUS 07/31/2019 * Result Note: FINAL * ---- ORGANISM ESCHERICHIA COLI * Result Note: ESCHERICHIA COLI * METHOD YOON AMPICILLIN >=32 RESISTANT AMPICILLIN/SULBACTAM >=32 RESISTANT CEFTRIAXONE <=1 SUSCEPTIBLE CEFAZOLIN <=4 SUSCEPTIBLE IMIPENEM <=0.25 SUSCEPTIBLE GENTAMICIN <=1 SUSCEPTIBLE TRIMETH-SULFA <=20 SUSCEPTIBLE AMOXICILLIN/CLAVULANIC A 4 SUSCEPTIBLE NITROFURANTOIN <=16 SUSCEPTIBLE PIPERACILLIN/TAZOBACTAM <=4 SUSCEPTIBLE LEVOFLOXACIN <=0.12 SUSCEPTIBLE ESBL NEGATIVE CEFTAZIDIME <=1 SUSCEPTIBLE Normal [facility] Comment on above: Performed By: #### A URNC #### Testing performed at [facility] [address] [place] [address] Testing performed at [facility] [address] [place] [address] HCG QUALITATIVE, URINEon HCG ( test) Ql (U) Negative NEGATIVE [facility] Otheron 07-28-2019 Interpretation and review of laboratory results Abnormal [facility] URINALYSIS, MACROon 07-28-20 19 Bilirubin Ql (U) Negative NEGATIVE [facility] Clarity (U) CLOUDY Abnormal CLEAR [facility] Color (U) YELLOW YELLOW [facility] Glucose Test strip (U) [Mass/Vol] Negative NEGATIVE mg/dl [facility] Hemoglobin Ql (U) MODERATE Abnormal NEGATIVE [facility] Ketones (U) [Mass/Vol] Negative NEGATIVE mg/dl [facility] Leukocyte esterase Test strip Ql (U) LARGE Abnormal NEGATIVE [facility] Nitrite Ql (U) Negative NEGATIVE [facility] pH (U) 6.0 [pH] [facility] Protein Ql (U) 100 mg/dl Abnormal NEGATIVE [facility] Specific gravity (U) [Rel density] 1.020 [facility] Urobilinogen (U) [Mass/Vol] 0.2 [facility] URINE HCG QUALon 07-28-2019 Beta HCG ( test) Ql (U) Negative Normal NEGATIVE [facility] Comment on above: Performed By: #### U HCGT, UMAC, UMIC #### Testing performed at [address] [address] URINE MACROSCOPICon 07-28-20 19 Bilirubin Ql (U) Negative Normal NEGATIVE [facility] Comment on above: Performed By: #### U HCGT, UMAC, UMIC #### Testing performed at [address] [address] Clarity (U) CLOUDY Abnormal CLEAR [facility] Comment on above: Performed By: #### U HCGT, UMAC, UMIC #### Testing performed at [address] [address] Color (U) YELLOW Normal YELLOW [facility] Comment on above: Performed By: #### U HCGT, UMAC, UMIC #### Testing performed at [address] [address] Glucose Ql (U) Negative Normal NEGATIVE [facility] Comment on above: Performed By: #### U HCGT, UMAC, UMIC #### Testing performed at [address] [address] pH (U) 6.0 [pH] Normal 5.0-7.0 [facility] Comment on above: Performed By: #### U HCGT, UMAC, UMIC #### Testing performed at [address] [address] Protein (U) [Mass/Vol] 100 mg/dL Abnormal NEGATIVE [facility] Comment on above: Performed By: #### U HCGT, UMAC, UMIC #### Testing performed at [address] [address] URINE HEMOGLOBIN MODERATE Abnormal NEGATIVE [facility] Comment on above: Performed By: #### U HCGT, UMAC, UMIC #### Testing performed at [address] [place] [address] URINE KETONE Negative Normal NEGATIVE [facility] Comment on above: Performed By: #### U HCGT, UMAC, UMIC #### Testing performed at [address] [address] URINE LEUKOTEST LARGE Abnormal NEGATIVE [facility] Comment on above: Performed By: #### U HCGT, UMAC, UMIC #### Testing performed at [address] [address] URINE NITRATES Negative Normal NEGATIVE [facility] Comment on above: Performed By: #### U HCGT, UMAC, UMIC #### Testing performed at [address] [address] URINE SPEC GRAVITY 1.020 Normal 1.010-1.025 [facility] Comment on above: Performed By: #### U HCGT, UMAC, UMIC #### Testing performed at [address] [address] Urobilinogen Qn (U) 0.2 {Levi'U}/dL Normal 0.2-1.0 [facility] Comment on above: Performed By: #### U HCGT, UMAC, UMIC #### Testing performed at [address] [address] URINE MICROSCOPICon 07-28-20 19 Bacteria LM.HPF (Urine sed) [#/Area] 4+ Abnormal NEGATIVE [facility] Comment on above: Performed By: #### U HCGT, UMAC, UMIC #### Testing performed at [address] [address] Casts LM.LPF (Urine sed) [#/Area] NONE Normal NONE [facility] Comment on above: Performed By: #### U HCGT, UMAC, UMIC #### Testing performed at [address] [address] CRYSTAL NONE Normal NONE [facility] Comment on above: Performed By: #### U HCGT, UMAC, UMIC #### Testing performed at [address] [address] Epithelial cells LM.HPF (Urine sed) [#/Area] TOO NUMEROUS TO COUNT Normal [facility] Comment on above: Performed By: #### U HCGT, UMAC, UMIC #### Testing performed at [place] [id number] Mucus Ql (Urine sed) TRACE Abnormal NEGATIVE [facility] Comment on above: Performed By: #### U HCGT, UMAC, UMIC #### Testing performed at [place] [id number] RBC (U) [#/Vol] 10 TO 20 Normal NEGATIVE [facility] Comment on above: Performed By: #### U HCGT, UMAC, UMIC #### [place] [address] URINE COMMENT REFLEX CULTURE PER ESTABLISHED CRITERIA. Normal [facility] Comment on above: Performed By: #### U HCGT, UMAC, UMIC #### Testing performed at [place] [id number] WBC (U) [#/Vol] TOO NUMEROUS TO COUNT Abnormal NEGATIVE [facility] Comment on above: Performed By: #### U HCGT, UMAC, UMIC #### Testing performed at [place] [id number] Bacteria LM.HPF (Urine sed) [#/Area] 4+ Abnormal [facility] Casts LM.LPF (Urine sed) [#/Area] NONE NONE /LPF [facility] Crystals LM Nom (Urine sed) NONE NONE [facility] Epithelial cells LM Ql (Urine sed) TOO NUMEROUS TO COUNT /HPF [facility] Mucus Ql (Urine sed) TRACE Abnormal NEGATIVE [facility] RBC LM.HPF (Urine sed) [#/Area] 10 TO 20 NEGATIVE /HPF [facility] Urine sediment comments LM Dustin (Urine sed) REFLEX CULTURE PER ESTABLISHED CRITERIA. [facility] WBC LM.HPF (Urine sed) [#/Area] TOO NUMEROUS TO COUNT Abnormal NEGATIVE /HPF [facility] Wet Prep, Genitalon 07-13-20 19 Direct Exam MANY BACTERIA Abnormal [place], [place] Direct Exam MODERATE YEAST Abnormal [place] Direct Exam MODERATE EPITHELIAL CELLS Abnormal [place] Direct Exam Few epithelials coat ed with bacteria resembling clue cells. Abnormal [place] Direct Exam NO TRICHOMONAS SEEN [place] Interpretation and review of laboratory results Abnormal [place] Special Requests NOT REPORTED [place] Specimen Description .VAGINA [place] WBC (Bld) [#/Vol] MODERATE WBC Abnormal [place] CBC Auto Differentialon 10-0 Basophils (Bld) [#/Vol] 0.00 10*3/uL [place] Basophils/100 WBC (Bld) 0 % 0 - 2 % [place] Differential Type YES [place] Eosinophils (Bld) [#/Vol] 0.30 10*3/uL [place] Eosinophils/100 WBC (Bld) 5 % 0 - 5 % [place] Erythrocyte distribution width (RBC) [Ratio] 13.0 % 12.1 - 15.2 % [place] Hematocrit (Bld) [Volume fraction] 38.5 % 36 - 46 % [place] Hemoglobin (Bld) [Mass/Vol] 13.1 g/dL 12 - 16 g/dL [place] Interpretation and review of laboratory results Abnormal [place] Lymphocytes (Bld) [#/Vol] 2.20 10*3/uL [place] Lymphocytes/100 WBC (Bld) 31 % 15 - 40 % [place] MCH (RBC) [Entitic mass] 30.6 pg 26 - 34 pg [place] MCHC (RBC) [Mass/Vol] 34.1 g/dL 31 - 37 g/dL [place] MCV (RBC) [Entitic vol] 89.9 fL 80 - 100 fL [place] Monocytes (Bld) [#/Vol] 0.60 10*3/uL [place] Monocytes/100 WBC (Bld) 9 % High 4 - 8 % [place] Platelet mean volume (Bld) [Entitic vol] NOT REPORTED 6 - 12 fL [place] Platelets (Bld) [#/Vol] 267 10*3/uL [place] Platelets (Bld) [#/Vol] NOT REPORTED [place] RBC (Bld) [#/Vol] 4.28 10*6/uL 4 - 5.2 m/uL [place] RBC morphology finding Nom (Bld) NOT REPORTED [place] Segmented neutrophils/100 WBC (Bld) 55 % 47 - 75 % [place] Segs Absolute 3.80 [place] WBC (Bld) [#/Vol] 6.9 10*3/uL [place] WBC (Bld) [#/Vol] NOT REPORTED per 100 WBC [place] WBC Morphology NOT REPORTED [place] CT ABDOMEN PELVIS WO CONTRAS Ton 05-14-2019 -Negative CT for obstructive renal, ureteric or bladder calculi. -Nonobstructive bilateral renal calculi. -Mild diffuse urinary bladder wall thickening may be accentuated due to nondistention, correlate with UA to exclude underlying cystitis. -Normal appendix. -IUD grossly intact. [place] ABDOMEN PELVIS WO CONTRAST; DATED [...] reconstruction technique. Quality of study: Adequate FINDINGS: Lens Generating Machine Tender View: Negative for acute findings Limited evaluation [...] the umbilical region. No other acute findings. [facility] [place], [place] Arvind, M[facility] Incoming Radiant Results From [email or web address] - 05/14/2019 4:[address] ABDOMEN [...] reconstruction technique. Quality of study: Adequate FINDINGS: Lens Generating Machine Tender View: Negative for acute findings Limited evaluation [...] underlying cystitis. -Normal appendix. -IUD grossly intact. [place] Comprehensive Metabolic Pane l w/ Reflex to MGon 05-14-2019 Albumin [Mass/Vol] 4.3 g/dL 3.5 - 5.2 g/dL [place] Albumin/Globulin [Mass ratio] NOT REPORTED [place] ALP [Catalytic activity/Vol] 62 U/L 35 - 104 U/L [place] ALT [Catalytic activity/Vol] 12 U/L 5 - 33 U/L [place] Anion gap [Moles/Vol] 9 mmol/L 9 - 17 mmol/L [place] AST [Catalytic activity/Vol] 15 U/L <32 [place] Bilirubin Ql (U) 0.45 mg/dL 0.3 - 1.2 mg/dL [place] Bun/Cre Ratio 13 [place] Calcium [Mass/Vol] 9.8 mg/dL 8.6 - 10. 4 mg/dL [place] Chloride [Moles/Vol] 104 mmol/L 98 - 10 7 mmol/L [place] CO2 [Moles/Vol] 25 mmol/L 20 - 31 mmol/L [place] Creatinine [Mass/Vol] 0.69 mg/dL 0.5 - 0.9 mg/dL [place] GFR >60 >60 mL/min [place] GFR Non- >60 >60 mL/min [place] GFR/1.73 sq M predicted among non-blacks MDRD (S/P/Bld) [Vol rate/Area] [place] Comment on above: Average GFR for 30-3 9 years old: 107 mL/min/1.73sq m Chronic Kidney Disease: <60 mL/min/1.73sq m Kidney failure: <15 mL/min/1.73sq m eGFR calculated using average adult body mass. Additional eGFR calculator available at: http://www.[employer]/multiple_crcl_2012.htm GFR/1.73 sq M predicted among non-blacks MDRD (S/P/Bld) [Vol rate/Area] NOT REPORTED [place] Glucose [Mass/Vol] 108 mg/dL High 70 - 99 mg/dL [place] Interpretation and review of laboratory results Abnormal [place] Potassium [Moles/Vol] 3.8 mmol/L 3.7 - 5.3 mmol/L [place] Protein [Mass/Vol] 7.5 g/dL 6.4 - 8.3 g/dL [place] Sodium [Moles/Vol] 138 mmol/L 135 - 144 mmol/L [place] Urea nitrogen [Mass/Vol] 9 mg/dL 6 - 20 mg/dL [place] HCG Qualitative, Serumon hCG Qual Negative NEGATIVE [place] Comment on above: Specimens with hCG l evels near the threshold of the test (25 mIU/mL) may give a negative or indeterminate result. In such cases, another test should be performed with a new specimen in 48-72 hours. If early is suspected clinically in this setting, correlation with quantitative serum b-hCG level is suggested. [facility] has confirmed the use of plasma for this test. This has not been cleared or approved by the U.S. Food and Drug Administration. The FDA has determined that such clearance is not necessary. Lipaseon 05-14-2019 Lipase [Catalytic activity/Vol] 46 U/L 13 - 60 U/L [place] Microscopic Urinalysison Amorphous, UA NOT REPORTED None [place] Bacteria, UA 4+ Abnormal None [place] Casts UA NOT REPORTED /LPF [place] Crystals UA 1+ CALCIUM OXALATE Abnormal None /HPF [place] Epithelial Cells UA 2 TO 5 /HPF [place] Interpretation and review of laboratory results Abnormal [place] Mucus, UA NOT REPORTED None [place] Other Observations UA NOT REPORTED NOT REQ. [place] RBC (U) [#/Vol] 5 TO 10 [place] Renal Epithelial, Urine NOT REPORTED 0 /HPF [place] Trichomonas, UA NOT REPORTED None [place] WBC, UA 10 TO 20 0 /HPF [place] Yeast, UA NOT REPORTED None [place] Otheron 05-14-2019 Immature granulocytes (Bld) [#/Vol] NOT REPORTED [place] Urinalysis, reflex to micros copicon 05-14-2019 Bilirubin Urine Negative NEGATIVE [place] Color, UA YELLOW YELLOW [place] Glucose, Ur Negative NEGATIVE [place] Interpretation and review of laboratory results Abnormal [place] Ketones Ql (U) Negative NEGATIVE [place] Leukocyte esterase Test strip Ql (U) 2+ Abnormal NEGATIVE [facility], [place] Nitrite, Urine Positive Abnormal NEGATIVE [facility], [place] pH, UA 6.0 [facility], [place] Protein (U) [Mass/Vol] 1+ Abnormal NEGATIVE [facility], [place] Specific Smoot, UA 1.020 [facility], [place] Turbidity UA CLOUDY Abnormal CLEAR [facility] Urinalysis Comments [facility] Urine Hgb 3+ Abnormal NEGATIVE [facility] Urobilinogen, Urine Normal Normal [facility] Vital Signs Date Time Vital Sign Value Performing Clinician Adrianna garza 03-27-2025 07:14-0400 Body height 165.1 cm Brooklyn Tompkins SENIOR PROCESS ENGINEER-TMD TEACHER ASSISTANT Work Phone: [facility] 03-27-2025 07:14-0400 Body mass index (BMI) [Ratio] 37.38 kg/m2 Brooklyn Tompkins SENIOR PROCESS ENGINEER-TMD TEACHER ASSISTANT Work Phone: [facility] 03-27-2025 07:14-0400 Body temperature 97.3 [degF] Brooklyn Tompkins SENIOR PROCESS ENGINEER-TMD TEACHER ASSISTANT Work Phone: [facility] 03-27-2025 07:14-0400 Body weight 101.88 kg Brooklyn Tompkins SENIOR PROCESS ENGINEER-TMD TEACHER ASSISTANT Work Phone: [facility] 03-27-2025 07:14-0400 Diastolic blood pressure 60 mm[Hg] Brooklyn Tompkins SENIOR PROCESS ENGINEER-TMD TEACHER ASSISTANT Work Phone: [facility] 03-27-2025 07:14-0400 Heart rate 70 /min Brooklyn Tompkins SENIOR PROCESS ENGINEER-TMD TEACHER ASSISTANT Work Phone: [facility] 03-27-2025 07:14-0400 Respiratory rate 18 /min Brooklyn Tompkins SENIOR PROCESS ENGINEER-TMD TEACHER ASSISTANT Work Phone: [facility] 03-27-2025 07:14-0400 SaO2% (BldA) [Mass fraction] 100 % Brooklyn Tompkins SENIOR PROCESS ENGINEER-TMD TEACHER ASSISTANT Work Phone: [facility] 03-27-2025 07:14-0400 Systolic blood pressure 112 mm[Hg] Brooklyn Tompkins SENIOR PROCESS ENGINEER-TMD TEACHER ASSISTANT Work Phone: [facility] 03-06-2025 21:06-0400 Diastolic blood pressure 51 mm[Hg] Ignacio Ortega DO Work Phone: [employer] 03-06-2025 21:06-0400 Heart rate 66 /min Ignacio Ortega DO Work Phone: [employer] 03-06-2025 21:06-0400 Respiratory rate 14 /min Ignacio Ortega DO Work Phone: [employer] 03-06-2025 21:06-0400 SaO2% (BldA) [Mass fraction] 100 % Ignacio Ortega DO Work Phone: [employer] 03-06-2025 21:06-0400 Systolic blood pressure 125 mm[Hg] Ignacio Ortega DO Work Phone: [employer] 03-06-2025 19:19-0400 Body temperature 98.6 [degF] Ignacio Ortega DO Work Phone: [employer] 03-05-2025 19:25-0400 Body temperature 98.29 [degF] Gael Sam MD Work Phone: [facility] [facility] 03-05-2025 19:25-0400 Diastolic blood pressure 89 mm[Hg] Gael Sam MD Work Phone: [employer] [facility] 03-05-2025 19:25-0400 Heart rate 66 /min Gael Sam MD Work Phone: [facility] [facility] 03-05-2025 19:25-0400 Respiratory rate 16 /min Gael Sam MD Work Phone: [employer] [facility] 03-05-2025 19:25-0400 SaO2% (BldA) [Mass fraction] 100 % Gael Sam MD Work Phone: [facility] [facility] 03-05-2025 19:25-0400 Systolic blood pressure 133 mm[Hg] Gael Sam MD Work Phone: [facility] 02-27-2025 10:54-0400 Body height 165.1 cm Brooklyn Grassick SENIOR PROCESS ENGINEER-TMD TEACHER ASSISTANT Work Phone: [facility] 02-27-2025 10:54-0400 Body mass index (BMI) [Ratio] 37.41 kg/m2 Brooklyn Grassick SENIOR PROCESS ENGINEER-TMD TEACHER ASSISTANT Work Phone: [facility] 02-27-2025 10:54-0400 Body temperature 97.39 [degF] Brooklyn Grassick SENIOR PROCESS ENGINEER-TMD TEACHER ASSISTANT Work Phone: [facility] 02-27-2025 10:54-0400 Body weight 101.97 kg Brooklyn Grassick SENIOR PROCESS ENGINEER-TMD TEACHER ASSISTANT Work Phone: [facility] 02-27-2025 10:54-0400 Diastolic blood pressure 82 mm[Hg] Brooklyn Grassick SENIOR PROCESS ENGINEER-TMD TEACHER ASSISTANT Work Phone: [facility] 02-27-2025 10:54-0400 Heart rate 77 /min Brooklyn Grassick SENIOR PROCESS ENGINEER-TMD TEACHER ASSISTANT Work Phone: [facility] 02-27-2025 10:54-0400 Respiratory rate 16 /min Brooklyn Grassick SENIOR PROCESS ENGINEER-TMD TEACHER ASSISTANT Work Phone: [facility] 02-27-2025 10:54-0400 SaO2% (BldA) [Mass fraction] 98 % Brooklyn Grassick SENIOR PROCESS ENGINEER-TMD TEACHER ASSISTANT Work Phone: [facility] 02-27-2025 10:54-0400 Systolic blood pressure 110 mm[Hg] Brooklyn Grassick SENIOR PROCESS ENGINEER-TMD TEACHER ASSISTANT Work Phone: [facility] 02-17-2025 23:23-0400 Body temperature 98.1 [degF] Artie Burden MD Work Phone: [facility] 02-17-2025 23:23-0400 Diastolic blood pressure 70 mm[Hg] Artie Burden MD Work Phone: [facility] 02-17-2025 23:23-0400 Heart rate 72 /min Artie Burden MD Work Phone: [facility] [employer] [facility] 02-17-2025 23:23-0400 Respiratory rate 17 /min Artie Burden MD Work Phone: [facility] 02-17-2025 23:23-0400 SaO2% (BldA) [Mass fraction] 100 % Artie Burden MD Work Phone: [facility] 02-17-2025 23:23-0400 Systolic blood pressure 113 mm[Hg] Artie Burden MD Work Phone: [email or web address] [facility] 02-18-2024 19:00-0400 Diastolic blood pressure 62 mm[Hg] Marlen Prattg DO Work Phone: [employer] 02-18-2024 19:00-0400 Heart rate 75 /min Marlenishmael Prattg DO Work Phone: [employer] 02-18-2024 19:00-0400 Respiratory rate 16 /min Marlenishmael Prattg DO Work Phone: [employer] 02-18-2024 19:00-0400 SaO2% (BldA) [Mass fraction] 96 % Marlen Prattg DO Work Phone: [employer] 02-18-2024 19:00-0400 Systolic blood pressure 110 mm[Hg] Marlen Yris Hernandez DO Work Phone: [employer] 02-18-2024 17:13-0400 Body temperature 97.3 [degF] Marlen Yris Hernandez DO Work Phone: [employer] 02-18-2024 12:49-0400 Body height 165.1 cm Marlen Velasquezy Hernandez DO Work Phone: [employer] 02-18-2024 12:49-0400 Body mass index (BMI) [Ratio] 34.41 kg/m2 Marlen Yris Hernandez DO Work Phone: [facility] 02-18-2024 12:49-0400 Body weight 93.8 kg Marlen Hernandez DO Work Phone: [facility] 11-29-2023 19:49-0400 Body temperature 97.59 [degF] Artie Burden MD Work Phone: [facility] 11-29-2023 19:49-0400 Diastolic blood pressure 71 mm[Hg] Artie Burden MD Work Phone: [facility] 11-29-2023 19:49-0400 Heart rate 89 /min Artie Burden MD Work Phone: [facility] 11-29-2023 19:49-0400 Respiratory rate 16 /min Artie Burden MD Work Phone: [facility] 11-29-2023 19:49-0400 SaO2% (BldA) [Mass fraction] 96 % Artie Burden MD Work Phone: [facility] 11-29-2023 19:49-0400 Systolic blood pressure 115 mm[Hg] Artie Burden MD Work Phone: [facility] 11-20-2022 09:00-0400 Diastolic blood pressure 60 mm[Hg] Jose Guerrero MD Work Phone: [facility] 11-20-2022 09:00-0400 Heart rate 72 /min Jose Guerrero MD Work Phone: [facility] 11-20-2022 09:00-0400 Respiratory rate 18 /min Jose Guerrero MD Work Phone: [facility] 11-20-2022 09:00-0400 SaO2% (BldA) [Mass fraction] 98 % Jose Guerrero MD Work Phone: [facility] 11-20-2022 09:00-0400 Systolic blood pressure 108 mm[Hg] Jose Guerrero MD Work Phone: [facility] 11-20-2022 03:03-0400 Body height 165.1 cm Jose Guerrero MD Work Phone: [facility] 11-20-2022 03:02-0400 Body temperature 98.29 [degF] Jose Guerrero MD Work Phone: [facility] 11-03-2022 09:52-0400 Body mass index (BMI) [Ratio] 33.28 kg/m2 Ninfa Long DO Work Phone: [facility] 11-03-2022 09:52-0400 Body temperature 98.2 [degF] Ninfa Long DO Work Phone: [facility] 11-03-2022 09:52-0400 Body weight 90.72 kg Ninfa Long DO Work Phone: [facility] 11-03-2022 09:52-0400 Diastolic blood pressure 59 mm[Hg] Ninfa Long DO Work Phone: [facility] 11-03-2022 09:52-0400 Heart rate 76 /min Ninfa Long DO Work Phone: [facility] 11-03-2022 09:52-0400 Respiratory rate 16 /min Ninfa Long DO Work Phone: [facility] 11-03-2022 09:52-0400 SaO2% (BldA) [Mass fraction] 100 % Ninfa Long DO Work Phone: [facility] 11-03-2022 09:52-0400 Systolic blood pressure 128 mm[Hg] Ninfa Long DO Work Phone: [facility] 12-26-2021 15:47-0400 Body temperature 98.01 [degF] Marlen Yris Hernandez DO Work Phone: [facility] [employer] 12-26-2021 15:47-0400 Diastolic blood pressure 59 mm[Hg] Marlen Hernandez DO Work Phone: [employer] 12-26-2021 15:47-0400 Heart rate 66 /min Marlen Hernandez DO Work Phone: [employer] 12-26-2021 15:47-0400 Respiratory rate 18 /min Marlen Hernandez DO Work Phone: [employer] 12-26-2021 15:47-0400 SaO2% (BldA) [Mass fraction] 96 % Marlen Hernandez DO Work Phone: [employer] 12-26-2021 15:47-0400 Systolic blood pressure 101 mm[Hg] Marlen Hernandez DO Work Phone: [employer] 12-26-2021 14:00-0400 Body height 165.1 cm Marlen Hernandez DO Work Phone: [employer] 12-26-2021 14:00-0400 Body mass index (BMI) [Ratio] 34.61 kg/m2 Marlen Hernandez DO Work Phone: [facility] [employer] 12-26-2021 14:00-0400 Body weight 94.35 kg Marlen Hernandez DO Work Phone: [facility] [employer] 08-25-2020 17:50-0500 BMI (Body Mass Index) 33.66 kg/m2 [facility] [place] 08-25-2020 17:50-0500 Body Temperature 98.49 [degF] [employer] [facility], 08-25-2020 17:50-0500 Body weight 86.18 kg [facility] [place] 08-25-2020 17:50-0500 BP Diastolic 71 mm[Hg] [facility] [place] 08-25-2020 17:50-0500 BP Systolic 106 mm[Hg] [facility] [place] 08-25-2020 17:50-0500 Height 160 cm Joseline Mariaa [facility] , [place] 08-25-2020 17:50-0500 Pulse (Heart Rate) 70 /min [facility] [place] 08-25-2020 17:50-0500 Pulse Oximetry 100 % [facility] [place] 08-25-2020 17:50-0500 Respiratory Rate 20 /min [facility] [place] 05-11-2020 00:15-0400 BP Diastolic 61 mm[Hg] [facility] 05-11-2020 00:15-0400 BP Systolic 105 mm[Hg] [facility] 05-11-2020 00:15-0400 Pulse (Heart Rate) 101 /min [facility] 05-11-2020 00:15-0400 Pulse Oximetry 98 % [facility] 05-11-2020 00:15-0400 Respiratory Rate 20 /min [facility] 05-10-2020 22:43-0400 BMI (Body Mass Index) 28.29 kg/m2 [facility] 05-10-2020 22:43-0400 Body Temperature 97.59 [degF] [facility] 05-10-2020 22:43-0400 Body weight 77.11 kg [facility] 05-10-2020 22:43-0400 Height 165.1 cm [facility] 04-25-2020 19:08-0400 BMI (Body Mass Index) 27.46 kg/m2 [facility] 04-25-2020 19:08-0400 Body Temperature 98.29 [degF] [facility] 04-25-2020 19:08-0400 Body weight 74.84 kg [facility] 04-25-2020 19:08-0400 Height 165.1 cm [facility] 04-25-2020 19:08-0400 Pulse (Heart Rate) 83 /min [facility] [place] 04-25-2020 19:08-0400 Pulse Oximetry 99 % Italia Vernon [facility] 04-25-2020 19:08-0400 Respiratory Rate 16 /min Italia Vernon [facility] [place] 10-31-2019 08:23-0400 Body Temperature 98.49 [degF] Preeti Garzon [facility] 10-31-2019 08:23-0400 BP Diastolic 79 mm[Hg] Preeti Garzon [facility] 10-31-2019 08:23-0400 BP Systolic 124 mm[Hg] Preeti Garzon [facility] 10-31-2019 08:23-0400 Pulse (Heart Rate) 66 /min Preeti Garzon [facility] 10-31-2019 08:23-0400 Pulse Oximetry 98 % Preeti Garzon [facility] 10-22-2019 19:41-0400 Respiratory Rate 14 /min Preeti Garzon [facility] 10-22-2019 19:34-0400 Body Temperature 98.1 [degF] Preeti Garzon [facility] 10-22-2019 19:34-0400 BP Diastolic 62 mm[Hg] Preeti Garzon [facility] 10-22-2019 19:34-0400 BP Systolic 101 mm[Hg] Preeti Garzon [facility] 10-22-2019 19:34-0400 Pulse (Heart Rate) 75 /min Preeti Garzon [facility] 10-22-2019 19:34-0400 Pulse Oximetry 95 % Preeti Garzon [facility] 10-21-2019 16:00-0400 BMI (Body Mass Index) 27.51 kg/m2 Preeti Garzon [facility] 10-21-2019 16:00-0400 Body weight 75 kg Preeti Garzon [facility] 10-21-2019 16:00-0400 Height 165.1 cm Preeti Garzon [facility] 10-21-2019 13:47-0400 BP Diastolic 72 mm[Hg] Theodore Escalante [facility] 10-21-2019 13:47-0400 BP Systolic 110 mm[Hg] Theodore Escalante [facility] 10-21-2019 13:47-0400 Pulse (Heart Rate) 63 /min Theodore Janessa [facility] 10-21-2019 13:47-0400 Pulse Oximetry 100 % Theodore Janessa [facility] 10-21-2019 13:47-0400 Respiratory Rate 18 /min Theodore Escalante [facility] 10-21-2019 09:02-0400 BMI (Body Mass Index) 27.46 kg/m2 Theodore Escalante [facility] 10-21-2019 09:02-0400 Body Temperature 98.29 [degF] Theodore Escalante [facility] 10-21-2019 09:02-0400 Body weight 74.84 kg Theodore Escalante [facility] 10-21-2019 09:02-0400 Height 165.1 cm Theodore Escalante [facility] 08-02-2019 22:30-0500 Body Temperature 102.6 [degF] [facility] 08-02-2019 22:30-0500 BP Diastolic 58 mm[Hg] [facility] 08-02-2019 22:30-0500 BP Systolic 102 mm[Hg] [facility] 08-02-2019 22:30-0500 Pulse (Heart Rate) 105 /min [facility] 08-02-2019 22:30-0500 Pulse Oximetry 100 % [facility] 08-02-2019 22:30-0500 Respiratory Rate 20 /min [facility] 08-02-2019 20:10-0500 Height 165.1 cm [facility] 07-28-2019 19:25-0500 Body Temperature 98.49 [degF] [facility] 07-28-2019 19:25-0500 BP Diastolic 66 mm[Hg] [facility] 07-28-2019 19:25-0500 BP Systolic 111 mm[Hg] [facility] 07-28-2019 19:25-0500 Pulse (Heart Rate) 99 /min [facility] 07-28-2019 19:25-0500 Pulse Oximetry 97 % [facility] 07-28-2019 19:25-0500 Respiratory Rate 16 /min [facility] 07-13-2019 15:55-0500 BMI (Body Mass Index) 29.95 kg/m2 John Tucker [facility] 07-13-2019 15:55-0500 Body Temperature 98.29 [degF] John Tucker Bench[facility], [place] 07-13-2019 15:55-0500 Body weight 81.65 kg John Tucker [place], [place] 07-13-2019 15:55-0500 BP Diastolic 49 mm[Hg] John Tucker [facility] [place] 07-13-2019 15:55-0500 BP Systolic 107 mm[Hg] John Tucker [facility] [place] 07-13-2019 15:55-0500 Height 165.1 cm John Tucker [facility] [place] 07-13-2019 15:55-0500 Pulse (Heart Rate) 77 /min John Tucker [facility] [place] 07-13-2019 15:55-0500 Pulse Oximetry 98 % John Tucker [facility] [place] 07-13-2019 15:55-0500 Respiratory Rate 16 /min John Tucker [facility], [place] 05-14-2019 15:19-0400 BMI (Body Mass Index) 27.79 [facility]m2 [facility] [place] 05-14-2019 15:19-0400 Body Temperature 98.29 [degF] [facility] 05-14-2019 15:19-0400 Body weight 75.75 kg [facility] 05-14-2019 15:19-0400 BP Diastolic 63 mm[Hg] [facility] 05-14-2019 15:19-0400 BP Systolic 100 mm[Hg] [facility] 05-14-2019 15:19-0400 Height 165.1 cm [facility] 05-14-2019 15:19-0400 Pulse (Heart Rate) 67 /min [facility], [place] 05-14-2019 15:19-0400 Pulse Oximetry 98 % [facility] 05-14-2019 15:19-0400 Respiratory Rate 16 /min [facility] Encounters Encounter Date Encounter Type Care Provider Facility Start: 04-21-2025 [facility] Start: 04-14-[address] [facility] Start: 04-01-[address] [facility] Start: 03-27-2025 End: 03-27-2025 Office outpatient visit 15 minutes Brooklyn Tompkins SENIOR PROCESS ENGINEER-TMD TEACHER ASSISTANT Work Phone: [facility] Comment on above: Iron deficiency anem ia, unspecified iron deficiency anemia type (Primary Dx); Neck discomfort Start: 03-27-[address] [facility] Start: 03-23-2025 ambulatory [facility] Start: 03-16-2025 ambulatory [facility] Start: 03-11-2025 ambulatory AARTI BLOOMM Facility:[facility] Start: 03-09-2025 ambulatory [facility] Start: 03-06-2025 End: 03-06-2025 Emergency department patient visit Ignacio Ortega DO Work Phone: [facility] Emergency Department Comment on above: Abnormal vaginal ble eding (Primary Dx) Start: 03-05-2025 End: 03-05-2025 Emergency department patient visit Gael Sam MD Work Phone: [facility] Emergency Medicine Start: 03-05-2025 ambulatory [facility] Start: 02-27-2025 ambulatory [facility] Start: 02-27-2025 End: 02-27-2025 Office outpatient new 45 minutes Brooklyn Tompkins SENIOR PROCESS ENGINEER-TMD TEACHER ASSISTANT Work Phone: [facility] Comment on above: Encounter for medica l examination to establish care (Primary Dx); Myalgia, multiple sites; Family history of autoimmune disorder; Fatigue, unspecified type; Iron deficiency anemia, unspecified iron deficiency anemia type; Generalized anxiety disorder Start: 02-27-2025 End: 02-27-2025 Patient encounter status Brooklyn Tompkins SENIOR PROCESS ENGINEER-TMD TEACHER ASSISTANT Work Phone: [facility] Start: 02-27-[address] [facility] Start: 02-17-2025 End: 02-18-2025 Emergency department patient visit Artie Burden MD Work Phone: [facility] Emergency Medicine Start: 02-16-2025 ambulatory NEHAL STOKES [facility] Start: 11-05-2024 End: 11-05-2024 ambulatory Vick QUINTEROS Facility:[id number] Start: 10-14-2024 End: 10-14-2024 ambulatory Desi Manjarrez Facility:[facility] Start: 10-06-2024 ambulatory Desi Lugoy Facility:[facility] [place] Start: 09-19-2024 End: 09-21-2024 ambulatory NGUYEN HERNANDEZ [facility] Start: 09-19-2024 End: 09-21-2024 Subsequent hospital visit by physician Nguyen Hernandez SENIOR PROCESS ENGINEER - CNM Work Phone: [facility] Comment on above: Abnormal mammogram o f left breast Start: 08-29-2024 ambulatory NGUYEN JEFFERYELLE HERNANDEZ [facility] Start: 08-07-2024 End: 08-09-2024 ambulatory NGUYEN NAKUL HERNANDEZ [facility] Start: 08-07-2024 End: 08-09-2024 Subsequent hospital visit by physician Nguyen Hernandez SENIOR PROCESS ENGINEER - CNM Work Phone: [facility] Comment on above: Screening mammogram, encounter for Start: 07-09-2024 ambulatory IOANA CLINTON Facility: [facility] Start: 07-09-2024 End: 07-09-2024 Office outpatient visit 15 minutes Ioana Clinton MD Work Phone: [facility] Comment on above: Graves' orbitopathy - Both Eyes (Primary Dx) Start: 06-17-2024 End: 06-17-2024 ambulatory NGUYEN HERNANDEZ [facility] Start: 06-17-2024 End: 06-17-2024 Subsequent hospital visit by physician Desi Manjarrez MD Work Phone: [facility] Laboratory Comment on above: Screening for malign ant neoplasm of cervix Start: 04-02-2024 End: 04-02-2024 Office consultation new/estab patient 60 min Ioana Clinton MD Work Phone: [facility] Comment on above: Graves' orbitopathy - Both Eyes (Primary Dx) Start: 04-02-2024 ambulatory IOANA CLINTON Facility: [facility] Start: 02-18-2024 End: 02-18-2024 Subsequent hospital visit by physician Marlen Hernandez DO Work Phone: [facility] Comment on above: Postoperative pain ( Primary Dx); Uterine leiomyoma, unspecified location Start: 01-30-2024 End: 01-30-2024 ambulatory YESENIA Fernandez [facility] Start: 01-22-2024 End: 01-22-2024 Evaluation and management of inpatient DANEILA Stacy [facility] Start: 01-21-2024 End: 01-22-2024 ambulatory [facility] Start: 01-09-2024 End: 01-09-2024 ambulatory [facility] Start: 01-09-2024 Encounter for other preprocedural examination [facility] Start: 12-06-2023 End: 12-06-2023 ambulatory [facility] Start: 11-29-2023 End: 11-29-2023 Emergency department patient visit Artie Burden MD Work Phone: [facility] Emergency Medicine Start: 11-24-2023 ambulatory [facility] Start: 11-12-2023 End: 11-13-2023 ambulatory Desi Manjarrez MD Facility:[facility] Start: 10-26-2023 ambulatory Carlos Dangelo MD F acility:[facility] Start: 10-24-2023 ambulatory Carlos Dangelo MD F acility:[facility] Start: 09-18-2023 End: 09-18-2023 Subsequent hospital visit by physician Desi Manjarrez MD Work Phone: [facility] Start: 11-20-2022 End: 11-20-2022 Emergency department patient visit Jose Guerrero MD Work Phone: [facility] Emergency Medicine Start: 11-03-2022 End: 11-03-2022 Emergency department patient visit Ninfa Long DO Work Phone: [facility] ED Comment on above: Vaginal bleeding in [...] Subsequent hospital visit by physician [facility] Comment on above: Episode of heavy vag inal bleeding Start: 08-25-2020 End: 08-25-2020 Emergency department patient visit [facility] Start: 08-25-2020 End: 08-25-2020 Emergency department patient visit Joseline Cadet Work Phone: [facility] ED Comment on above: DUB (dysfunctional u [...] department patient visit Rob Ng Work Phone: [facility] Emergency Department Comment on above: Allergic reaction to drug, initial encounter (Primary Dx); Acute UTI Start: 04-25-2020 End: 04-25-2020 Emergency department patient visit DESI Baugh [facility] Start: 04-25-2020 End: 04-25-2020 Emergency department patient visit Italia Vernon Work Phone: [facility] ED Comment on above: Flank pain (Primary Dx); History of kidney stones Start: 10-31-2019 End: 10-31-2019 Patient encounter procedure PREETI GARZON [facility] Start: 10-31-2019 End: 10-31-2019 Patient encounter procedure Preeti Garzon Work Phone: [facility] Comment on above: Ureteral stone (Prim carmen Dx) Start: 10-21-2019 End: 10-22-2019 Subsequent hospital visit by physician Preeti Garzon Work Phone: [address] Comment on above: Left ureteral stone (Primary Dx) Start: 10-21-2019 End: 10-22-2019 Patient encounter procedure PREETI GARZON [facility] Start: 10-21-2019 End: 10-21-2019 Emergency department patient visit MARY [facility] Start: 10-21-2019 End: 10-21-2019 Emergency department patient visit mary [facility] Work Phone: [facility] Emergency Department Comment on above: Ureteral stone with hydronephrosis (Primary Dx) Start: 08-02-2019 End: 08-02-2019 Emergency department patient visit Carlos Smith Work Phone: [facility] Start: 07-28-2019 End: 07-28-2019 Emergency department patient visit Howard Hunter Work Phone: [facility] Start: 07-13-2019 End: 07-13-2019 Emergency department patient visit John Tucker Work Phone: [facility] ED Comment on above: Vaginal yeast infect ion (Primary Dx) Start: 05-14-2019 End: 05-14-2019 Emergency department patient visit Italia Vernon Work Phone: [facility] ED Comment on above: Acute cystitis with hematuria (Primary Dx); Right flank pain; Kidney stone Start: 09-06-2017 End: 09-06-2017 Emergency department patient visit PROVIDER UNKNOWN Facility:[facility] Procedures Date Procedure Procedure Detail Performing Clinician Start: 03-06-2025 Smr prim src wet mount nfct agt Ignacio Ortega DO Work Phone: Start: 03-06-2025 Gonadotropin chorionic qualitative Ignacio Ortega DO Work Phone: Start: 03-05-2025 Complete blood count with white cell differential, automated Gael Sam MD Work Phone: Start: 02-17-2025 Ecg routine ecg w/least 12 lds w/i&r Artie Burden MD Work Phone: Start: 02-17-2025 Urinalysis microscopic only Artie mckeon MD Work Phone: Start: 02-17-2025 Urinalysis, reagent strip without microscopy Artie Burden MD Work Phone: Start: 02-17-2025 Complete blood count with white cell differential, automated Artie Burden MD Work Phone: Start: 02-17-2025 End: 02-17-2025 Comprehensive metabolic panel Artie sunshine MD Work Phone: Start: 09-19-2024 Us breast uni real time with image limited Nguyen Hernandez APRN - CN Work Phone: Start: 09-19-2024 Diagnostic mammography computer-aided detcj uni Nguyen Hernandez APRN - CNM Work Phone: Start: 08-07-2024 Screening mammography bi 2-view breast inc cad Nguyen Hernandez APRN - CNM Work Phone: Start: 06-17-2024 Microscopic observation [Identifier] in Cervix by Cyto stain Nguyen Hernandez APRN - CNLupis Work Phone: Start: 04-02-2024 Visual field xm [...] Work Phone: Start: 09-18-2023 Lipid panel Desi Manajrrez MD Work Phone: Start: 11-20-2022 Us preg uterus real time w/image dcmtn transvag Jose Guerrero MD Work Phone: Start: 11-20-2022 Complete blood count with white cell differential, automated Jose Guerrero MD Work Phone: Start: 11-20-2022 Comprehensive metabolic [...] Start: 05-10-2020 CT of urinary tract Rob Bravo Berenice Work Phone: Start: 05-10-2020 Choriogonadotropin ( test) [Presence] in Urine [facility] Start: 05-10-2020 Urnls dip stick/tablet rgnt auto w/o microscopy [facility] Start: 05-10-2020 Basic metabolic panel calcium ionized [facility] Start: 05-10-2020 Blood count complete auto&auto difrntl wbc Rob Luis AngelYvan Berenice Work Phone: Start: 04-25-2020 Blood count complete auto&auto difrntl wbc DESI MANJARREZ Start: 04-25-2020 Comprehensive metabolic panel DESI HO Y Start: 04-25-2020 Culture bacterial quanttative colony count urine DESI MANJARREZ Start: 04-25-2020 Urinalysis microscopic only DESI HOY Start: 04-25-2020 Urine test visual color cmprsn meths DESI HOY Start: 04-25-2020 Urnls dip stick/tablet rgnt auto w/o microscopy DESI HOY Start: 04-25-2020 BASIC METABOLIC PANEL W/ REFLEX TO MG FOR LOW K Raulmelinahayley Lupis Saulo Work Phone: Start: 04-25-2020 Blood count complete auto&auto difrntl wbc Raulharper Baugh Saulo Work Phone: Start: 04-25-2020 Urinalysis microscopic only Italia Baugh Saulo Work Phone: Start: 04-25-2020 Urine test visual color cmprsn meths Raulharper Baugh Saulo Work Phone: Start: 04-25-2020 Urnls dip stick/tablet rgnt auto w/o microscopy Italia Baugh Saulo Work Phone: Start: 10-31-2019 CYSTOSCOPY Pereti Ardon on Work Phone: Start: 10-22-2019 AUTOPAP Florentino Noble h Work Phone: Start: 10-22-2019 CPAP / BIPAP TITRATE Florentino Coley Work Phone: Start: 10-22-2019 Retrograde pyelogram Preeti contreras Work Phone: Start: 10-22-2019 XR OR FLUOROSCOPY TIME Preeti castillo Work Phone: Start: 10-22-2019 Choriogonadotropin ( test) [Presence] in Urine Preeti Garzon Work Phone: Start: 10-22-2019 Radiography of wjwonf-wthnyl-xbzaqfo Preeti Garzon Work Phone: Start: 10-21-2019 Urinalysis Theodore Escalante Work Phone: Start: 10-21-2019 CT of urinary tract Theodore Escalante Work Phone: Start: 10-21-2019 Basic metabolic 2000 panel - Serum or Plasma Theodore Escalante Work Phone: Start: 10-21-2019 Choriogonadotropin.beta subunit ( test) [Presence] in Serum or Plasma Theodore Escalante Work Phone: Start: 10-21-2019 Complete blood count with white cell differential, automated Theodore Escalante Work Phone: Start: 10-21-2019 Complete blood count with white cell differential, manual Theodore Escalante Work Phone: Start: 10-21-2019 Hepatic function 2000 panel - Serum or Plasma Theodore Escalante Work Phone: Start: 10-21-2019 LAVENDER TOP Theodore Escalante Work Phone: Start: 10-21-2019 LIGHT BLUE TOP Theodore Escalante Work Phone: Start: 10-21-2019 LIGHT GREEN TOP Theodore Escalante Work Phone: Start: 10-21-2019 Lipase [Enzymatic activity/volume] in Serum or Plasma Theodore Escalante Work Phone: Start: 08-03-2019 CT of [...] Activity Detail Author Start: 06-17-2029 Screening for malignant neoplasm of cervix [facility] [employer] Start: 09-18-2028 [facility] Start: 09-28-2027 [facility]id [facility] Start: 06-17-2027 Screening for malignant neoplasm of cervix Pap smear [facility] [employer] Start: 09-19-2026 Screening for malignant neoplasm of breast Breast cancer screen [facility] [employer] Start: 08-07-2026 Screening for malignant neoplasm of breast [facility] Start: 05-17-2026 [facility] Start: 02-17-2026 Thyroid stimulating hormone measurement TSH [facility] Start: 08-07-2025 Screening for malignant neoplasm of breast MAMMOGRAM SCREENING DISCUSSION [facility] Start: 06-26-2025 End: 06-26-2025 Patient encounter procedure 06/26/2025 9:40 AM EST Office Visit [address] [address] Brooklyn Tompkins APRN-TMD TEACHER ASSISTANT [address] [facility] [place] [address] [facility] Start: 06-18-2025 End: 06-18-2025 Patient encounter procedure 06/18/2025 1:45 PM EST Office Visit [facility] Part of [address] [place], [place] [id number] Nguyen Hernandez, ANGELLA - CN [address] [facility] [place] [address] yearly [facility] Part [facility] Comment on above: yearly Start: 05-13-2025 Screening for malignant neoplasm of cervix Cervical cancer screen [place], [place] Start: 04-06-2025 Influenza vaccination [facility]FLU[facility] VACCINE (#[facility] Start: 03-27-2025 End: 03-27-2026 CBC,PLATELETS CBC,PLATELETS Lab Routine Iron deficiency anemia, unspecified iron deficiency anemia type Expected: 03/27/2025, Expires: 03/27/2026 [facility] Comment on above: Expected: 03/27/2025, Expires: 6 Start: 03-27-2025 End: 02-27-2026 IRON/IRON BINDING/TRANSFERRIN IRON/IRON BINDING/TRANSFERRIN Lab Routine Iron deficiency anemia, unspecified iron deficiency anemia type Expected: 03/27/2025, Expires: 02/27/2026 [facility] Comment on above: Expected: 03/27/2025, Expires: 6 Start: 03-27-2025 End: 03-27-2025 Patient encounter procedure 03/27/2025 9:40 AM EDT Office Visit [address] [address] Brooklyn Tompkins, SENIOR PROCESS ENGINEER-TMD TEACHER ASSISTANT [address] [place] [address] [facility] Start: 03-16-2025 End: 03-16-2025 Patient encounter procedure 03/16/2025 2:00 PM EDT Infusion Visit [facility] [address] [place] [address] [facility] Start: 03-09-2025 End: 03-09-2025 Patient encounter procedure 03/09/2025 2:00 PM EDT Infusion Visit [facility] [address] [place] [place] [address] [facility] Start: 03-06-2025 End: 02-27-2026 CBC,PLATELETS CBC,PLATELETS Lab Routine Iron deficiency anemia, unspecified iron deficiency anemia type Expected: 03/06/2025, Expires: 02/27/2026 [facility] Comment on above: Expected: 03/06/2025, Expires: Start: 03-06-2025 Influenza vaccination Flu vaccine (#1) [facility] Start: 02-27-2025 End: 02-27-2026 ISHA MULTIPLEX SCRN WITH REFLEX [facility] Comment on above: Expected: 02/27/2025, Expires: Start: 02-27-2025 End: 02-27-2025 Patient encounter procedure 02/27/2025 11:00 AM EDT Office Visit [address] [address] Brooklyn Tompkins, SENIOR PROCESS ENGINEER-TMD TEACHER ASSISTANT [address] [place] [address] [facility] Start: 01-19-2025 DTaP/Tdap/Td vaccine (2 - Td or Tdap) DTaP/Tdap/Td vaccine (2 - Td or Tdap) [facility] Start: 01-19-2025 Tetanus vaccination TETANUS [facility] Start: 10-08-2024 Depression Screen Depression Screen [facility] Start: 08-07-2024 End: 08-07-2024 Patient encounter procedure 08/07/2024 4:00 PM EST Appointment [facility] [address] [place] [address] Nguyen Hernandez, SENIOR PROCESS ENGINEER - CNM [address] [place] [address] EPIC ALPHONSO [facility] Comment on above: EPIC ALPHONSO [facility] Start: 07-09-2024 End: 07-09-2024 Patient encounter procedure 07/09/2024 9:10 AM EST Office Visit [facility] [address] [place] [address] Ioana Clinton MD [address] [place] [address] [address] [place] [address] [facility] Start: 05-28-2024 End: 05-28-2024 Patient encounter procedure 05/28/2024 10:45 AM EDT Office Visit [facility] Part [facility] [address] [facility] [address] [place] [address] Nguyen Hernandez, SENIOR PROCESS ENGINEER - CNM [address] [facility] [place] [address] PAP [facility] Comment on above: PAP Start: 05-17-2024 Screening for malignant neoplasm of cervix Pap smear [facility] Start: 04-06-2024 COVID-19 Vaccine ( season) COVID-19 Vaccine ( season) Nikolas [facility] Start: 04-06-2024 COVID-19 VACCINE ( season) COVID-19 VACCINE ( season) [facility] Start: 04-06-2024 Influenza vaccination [facility] Start: 03-06-2024 Influenza vaccination Flu vaccine (#1) [facility] Start: 02-27-2024 End: 02-27-2024 Patient encounter procedure 02/27/2024 11:30 AM EDT Office Visit [facility] [address] [place] [address] Delfina Fuller PA-C [address] [place] [address] f/u from myomectomy BA 10/16 [facility] Comment on above: f/u from myomectomy 10/16 Start: 02-18-2024 End: 02-18-2024 Laps myomectomy exc 1-4 myomas 250 gm/< UTERINE MYOMECTOMY ROBOTIC Uterine leiomyoma, unspecified location 02/18/2024 3:33 PM EDT [facility] Start: 10-09-2023 End: 10-09-2023 Patient encounter procedure 10/09/2023 4:45 PM EST Office Visit [facility] [address] [place] [address] Marlen Porras DO [address] [place] [address] med check / SS pt [facility] Comment on above: med check / SS pt Start: 09-28-2023 Hemoglobin A1c measurement A1C test (Diabetic or Prediabetic) [facility] Start: 04-06-2023 COVID-19 VACCINE ( season) COVID-19 VACCINE ( season) [facility] Start: 04-06-2023 Influenza vaccination INFLUENZA VACCINE (Season Ended) [facility] Start: 03-06-2023 Influenza vaccination Flu vaccine (#1) [facility] Start: 01-16-2023 Cervical cancer screen Cervical cancer screen [facility] [place] Start: 01-16-2023 Screening for malignant neoplasm of cervix Cervical cancer screen [place], [place] Start: 11-20-2022 End: 11-20-2022 Patient encounter procedure 11/20/2022 Routine Obstetrics and Gynecology Nguyen Hernandez, SENIOR PROCESS ENGINEER - CNM [address] [facility] [place] [address] [facility] Start: 11-20-2022 End: 11-20-2022 TREATMENT INCOMPLETE W/ D&C TREATMENT INCOMPLETE W/ D&C Missed 11/20/2022 11:15 AM EDT [facility] Start: 11-08-2022 End: 11-08-2022 Patient encounter procedure 11/08/2022 Routine Obstetrics and Gynecology [facility] Start: 10-26-2022 End: 10-26-2022 Professional / ancillary services management 10/26/2022 Ancillary Procedure Obstetrics and Gynecology [facility] Start: 10-26-2022 End: 10-26-2022 ambulatory 10/26/2022 Initial Obstetrics and Gynecology [facility] Start: 04-06-2022 Influenza vaccination Flu vaccine (Season Ended) [facility] Start: 03-06-2022 Influenza vaccination Flu vaccine (#1) [facility] Start: 01-17-2022 End: 01-17-2022 Patient encounter procedure 01/17/2022 Office Visit Obstetrics and Gynecology Marlen Porras, DO [address] [place] [address] [facility] Start: 12-26-2021 End: 12-26-2021 Hysteroscopy bx endometrium&/polypc w/wo d&c DILATATION AND CURETTAGE HYSTEROSCOPY MENORRHAGIA, ENDOMETRIAL HYPERPLASIA, FIBROIDS 12/26/2021 3:18 PM EDT [facility] Start: 09-14-2021 Depression Screen Depression Screen [facility] Start: 05-17-2021 End: 05-17-2021 Office Visit 05/17/2021 Office Visit Obstetrics and Gynecology Nguyen Hernandez APRN - CNM [address] [place] [address] [facility] Start: 04-06-2021 Influenza vaccination Flu vaccine (#1) [facility] Start: 01-16-2021 Screening for malignant neoplasm of cervix Pap Smear [facility] Start: 2020 Lipid panel [facility] Start: 2020 Screening for malignant neoplasm of breast [facility] Start: 08-26-2020 End: 09-02-2021 US PELVIS COMPLETE NON-OB TRANSABDOMINAL AND TRANSVAGINAL US PELVIS COMPLETE NON-OB TRANSABDOMINAL AND TRANSVAGINAL Imaging Routine DUB (dysfunctional uterine bleeding) Expected: 08/26/2020, Expires: 09/02/2021 [facility] [place] Comment on above: Expected: 08/26/2020, Expires: 2 Start: 05-13-2020 End: 05-13-2020 Procedure visit 05/13/2020 Procedure visit Obstetrics and Gynecology Nguyen Hernandez APRN - CNM [address] [place] [address] [facility] Start: 04-06-2020 Influenza vaccination Flu vaccine (#1) [facility] [place] Start: 04-06-2020 Influenza vaccination given Sequential Influenza Vaccine (#1) [facility] Start: 10-22-2019 End: 10-22-2019 Hospital Encounter [facility] Comment on above: CYSTOSCOPY WITH RETROGRADE STONE MANIPUL ATION STENT INSERTION WITH LASER Start: 04-06-2019 Influenza vaccination [facility] [place] Start: 04-06-2019 Influenza vaccination given Sequential Influenza Vaccine (#1) [facility] Start: 01-25-2011 Hepatitis B vaccination HEP B VACCINE (2 of 3 - 19+ 3-dose series) [facility] Start: 11-29-2007 HPV VACCINE (1 - 3-dose SCDM series) HPV VACCINE (1 - 3-dose SCDM series) [facility] Start: 2001 Screening for malignant neoplasm of cervix [facility] Start: 11-29-1999 DTaP/Tdap/Td vaccine (1 - Tdap) DTaP/Tdap/Td vaccine (1 - Tdap) [place], [place] Start: 11-29-1999 Hepatitis B vaccine (1 of 3 - 19+ 3-dose series) Hepatitis B vaccine (1 of 3 - 19+ 3-dose series) [facility] Start: 11-29-1999 Third diphtheria, tetanus and acellular pertussis (DTaP) vaccination TDAP (ADULT) [facility] Start: 1998 Hepatitis C antibody, confirmatory test Hepatitis C Screening [facility] Start: 1998 Hepatitis C screening Hepatitis C screen [facility] Start: 1998 Tetanus vaccination TETANUS [facility] Start: 11-29-1995 HIV screen HIV screen [place], [place] Start: 11-29-1995 HIV screening [facility] Start: 1993 HIV screening HIV SCREENING DISCUSSION [facility] Start: 1993 Varicella Vaccine (1 of 2 - 13+ 2-dose series) Varicella Vaccine (1 of 2 - 13+ 2-dose series) [facility] Start: 1992 Depression Screen Depression Screen [facility] Start: 11-29-1991 DTaP/Tdap/Td vaccine (1 - Tdap) DTaP/Tdap/Td vaccine (1 - Tdap) [place] Start: 1985 COVID-19 Vaccine (1) COVID-19 Vaccine (1) [facility] Start: 11-29-1983 History and physical examination, annual for health maintenance Wellness Visit [facility] Start: 1981 Varicella Vaccine (1 of 2 - 2-dose childhood series) Varicella Vaccine (1 of 2 - 2-dose childhood series) [facility] Start: 05-30-1981 COVID-19 Vaccine (#1) COVID-19 Vaccine (#1) [facility] Start: 1980 Hepatitis B vaccine (1 of 3 - 3-dose series) Hepatitis B vaccine (1 of 3 - 3-dose series) [facility] Start: 1980 Hepatitis C screening [facility] Start: 1980 Screening for malignant neoplasm of cervix Pap Smear [facility] Start: 1980 Tetanus vaccination Tetanus: Every 10yrs [facility] Start: 1980 Thyroid stimulating hormone measurement TSH [facility] End: 05-10-2020 Bacteria identified Aer cx Nom (Unsp spec) Urine Aerobic Culture Microbiology Routine Once for 1 Occurrences starting 05/10/2020 until 05/10/2020 [facility] Comment on above: Once for 1 Occurrences starting 05/10/20 until 05/10/2020 End: 05-14-2019 Bacteria identified Cx Nom (U) Urine Culture Microbiology Routine Once for 1 Occurrences starting 05/14/2019 until 05/14/2019 [facility] [place] Comment on above: Once for 1 Occurrences starting 05/14/20 until 05/14/2019 Bacteria identified Cx Nom (U) [facility] [place] End: 08-25-2020 C.trachomatis N.gonorrhoeae DNA C.trachomatis N.gonorrhoeae DNA Microbiology Routine One Time for 1 Occurrences starting 08/25/2020 until 08/25/2020 [facility] [place] Comment on above: One Time for 1 Occurrences starting 08/07 until 08/25/2020 C.trachomatis N.gono rrhoeae DNA C.trachomatis N.gonorrhoeae DNA Microbiology Stat [employer] Label print 08/25/2020 6:00 PM EST [facility] [place] C.trachomatis N.gono rrhoeae DNA C.trachomatis N.gonorrhoeae DNA Microbiology STAT 03/06/2025 8:32 PM EDT Nikolas Felix [facility] End: 05-13-2020 C.trachomatis N.gonorrhoeae DNA, Thin Prep C.trachomatis N.gonorrhoeae DNA, Thin Prep Microbiology Routine Screening for cervical cancer 1 Occurrences starting 05/13/2020 until 05/13/2020 [facility] [place] Comment on above: 1 Occurrences starting 05/13/2020 until 05/13/2020 C.trachomatis N.gono rrhoeae DNA, Thin Prep C.trachomatis N.gonorrhoeae DNA, Thin Prep Microbiology Routine Screening for cervical cancer 05/13/2020 4:07 PM EDT [facility] [place] Choriogonadotropin ( test) [Presence] in Urine HCG QUALITATIVE, URINE Fluids STAT 02/17/2025 11:55 PM EDT [facility] CT of urinary tract CT Kidney St one Imaging STAT 10/21/2019 10:51 AM EDT [facility] End: 04-25-2020 Culture, Urine Culture, Urine Microbiology Routine Once for 1 Occurrences starting 04/25/2020 until 04/25/2020 [facility] Comment on above: Once for 1 Occurrences starting 04/25/20 until 04/25/2020 End: 05-13-2020 Cytopathology procedure, preparation of smear, genital source PAP SMEAR Lab Routine Screening for cervical cancer 1 Occurrences starting 05/13/2020 until 05/13/2020 [facility] [place] Comment on above: 1 Occurrences starting 05/13/2020 until 05/13/2020 End: 06-17-2024 Cytopathology procedure, preparation of smear, genital source PAP SMEAR Lab Routine Screening for malignant neoplasm of cervix 1 Occurrences starting 06/17/2024 until 06/17/2024 [employer] Comment on above: 1 Occurrences starting 06/17/2024 until 06/17/2024 End: 09-28-2022 Hemoglobin A1c/Hemoglobin.total in Blood [employer] Work Phone: Comment on above: Once for 1 Occurrences starting 09/28/19 until 09/28/2022 End: 09-18-2023 Hemoglobin A1c/Hemoglobin.total in Blood [employer] Phone: Comment on above: Once for 1 Occurrences starting 09/18/19 24 until 09/18/2023 End: 12-26-2021 INITIATE PACU OXYGEN THERAPY PROTOCOL Initiate PACU Oxygen Therapy Protocol Respiratory Care Routine Continuous until discontinued starting 12/26/2021 [employer] Work Phone: Comment on above: Continuous until discontinued starting 0 12/26/2021 End: 02-18-2024 INITIATE PACU OXYGEN THERAPY PROTOCOL Initiate PACU Oxygen Therapy Protocol Respiratory Care Routine Continuous until discontinued starting 02/18/2024 [employer] Comment on above: Continuous until discontinued starting 0 02/18/2024 Kidney Stone Analysis [facility] Comment on above: Release Upon Ordering for 1 Occurrences starting 10/22/2019 Mint Green Top Mint Green Top L ab STAT 10/21/2019 9:07 [facility] End: 09-28-2022 MISCELLANEOUS TESTING [employer] Phone: Comment on above: Once for 1 Occurrences starting 09/28/19 until 09/28/2022 Oxygen therapy [Mini mum Data Set] Initiate Oxygen Therapy Protocol Respiratory Care Routine As Needed until discontinued starting 12/26/2021 [employer] Phone: Comment on above: As Needed until discontinued starting Oxygen therapy [Mini mum Data Set] Initiate Oxygen Therapy Protocol Respiratory Care Routine As Needed until discontinued starting 02/18/2024 [employer] Comment on above: As Needed until discontinued starting End: 10-22-2019 Procedure on tissue specimen Tissue Exam Pathology and Cytology Routine Once for 1 Occurrences starting 10/22/2019 until 10/22/2019, 1 completed [facility] Comment on above: Once for 1 Occurrences starting 10/22/19 until 10/22/2019, 1 completed Procedure on tissue specimen Tissue Exam Pathology and Cytology Routine 10/22/2019 [facility] Colp Draw Colp Draw Lab STAT [facility] ECG ECG STAT 11:58 PM [facility] End: 07-05-2021 Surgical Pathology Surgical Pathology Lab Routine Menorrhagia with regular cycle 1 Occurrences starting 07/05/2021 until 07/05/2021 [employer] Phone: Comment on above: 1 Occurrences starting 07/05/2021 until 07/05/2021 Surgical Pathology Surgical Path ology Lab Routine Release Upon Ordering for 1 Occurrences starting 12/26/2021 [employer] Phone: Comment on above: Release Upon Ordering for 1 Occurrences starting 12/26/2021 Surgical Pathology Surgical Path ology Lab Routine Uterine leiomyoma, unspecified location Release Upon Ordering for 1 Occurrences starting 02/18/2024 [employer] Comment on above: Release Upon Ordering for 1 Occurrences starting 02/18/2024 End: 02-18-2024 SURGICAL PATHOLOGY REPORT SURGICAL PATHOLOGY REPORT Lab Routine Once for 1 Occurrences starting 02/18/2024 until 02/18/2024 [facility] Comment on above: Once for 1 Occurrences starting 02/18/20 until 02/18/2024 End: 10-04-2022 Thyroglobulin [employer] Phone: Comment on above: Once for 1 Occurrences starting 10/05/19 until 10/04/2022 End: 10-04-2022 Thyroid Antibodies [employer] Phone: Comment on above: Once for 1 Occurrences starting 10/05/19 until 10/04/2022 Payers Date Payer Category Payer Medicaid (Managed Care) 1.2. [id number] 2019 Unknown [id number] 2018 Unknown [employer] [id number] 2018-Present [id number] 2016 Unknown [id number]. [id number] 1980 Unknown [id number] 2.16.840.1.004178.3.579.2. 903 1980 Unknown [id number] 2.16.840.1.547225.3.579.2. 903 1980 Unknown [id number] 2.16.840.1.773983.3.579.2. 900 1980 Unknown [id number] 2.16.840.1.119667.3.579.2. 900 1980 Unknown [id number] 2.16.840.1.054263.3.579.2. 902 1980 Unknown [id number] 2.16.840.1.198871.3.579.2. 174 1980 Unknown [id number] 2.16840.1.314677.3.579.2. 174 1980 Unknown [id number] 2.16840.1.772293.3.579.2. 593 1980 Unknown [id number] 2.16.840.1.747635.3.579.2. 196 1980 Unknown [id number] 2.16840.1.450814.3.579.2. 1285 1980 Unknown [id number] 2.16840.1.329252.3.579.2. 1285 1980 Unknown [id number] 2.840.1.675408.3.579.2. 1285 1980 Unknown [id number] 2.840.1.327832.3.579.2. 1285 1980 Unknown [id number] 2.840.1.130485.3.579.2. 1285 1980 Unknown [id number] 2.840.1.779439.3.579.2. 1285 1980 Unknown [id number] 2.840.1.354175.3.579.2. 1285 1980 Unknown [id number] 2.840.1.963278.3.579.2. 72 1980 Unknown [id number] 2.16840.1.250128.3.579.2 1980 Unknown [id number] 2.16840.1.870079.3.579.2. 98 1980 Unknown [id number] 2.16840.1.463164.3.579.2. 1980 Unknown [id number] 2.16840.1.659381.3.579.2. 98 1980 Unknown [id number] [id number]. 983 1980 Unknown [id number] 2.16.840.1.313149.3.579.2. 983 1980 Unknown [id number] 2.16.840.1.515032.3.579.2. 983 1980 Unknown [id number] 2.16.840.1.170167.3.579.2. 983 1980 Unknown [id number] 2.16840.1.319595.3.579.2. 173 1980 Unknown [id number] 2.16840.1.213596.3.579.2. 173 1980 Unknown [id number] 2.16840.1.661033.3.579.2. 173 1980 Unknown [id number] 2.840.1.058855.3.579.2. 173 1980 Unknown [id number] 2.840.1.923413.3.579.2. 173 1980 Unknown [id number] 2.840.1.042890.3.579.2. 173 1980 Unknown [id number] 2.16840.1.911771.3.579.2. 594 1980 Unknown [id number] 2.840.1.618388.3.579.2. 594 1980 Unknown [id number] 2.840.1.604881.3.579.2. 594 1980 Unknown [id number] 2.16840.1.653718.3.579.2. 983 1980 Unknown [id number] 2.16840.1.993643.3.579.2. 983 1980 Unknown [id number] 2.16840.1.044625.3.579.2. 983 1980 Unknown [id number] 2.16840.1.227876.3.579.2. 983 1980 Unknown [id number] 2.16.840.1.172482.3.579.2. 983 1959 Unknown [id number] Worker's Compensation [id number] Social History Date Type Detail Facility Start: 05-14-2019 End: 10-15-2022 Tobacco [facility] status [facility] Start: 05-14-2019 End: 02-27-2025 Alcohol intake No [facility] [employer] [facility] Start: 1980 Sex Assigned At Not on file [place], [place] Start: 07-13-2019 Alcohol intake Current non-drinker of alcohol (finding) [facility] [place] Start: 07-28-2019 Tobacco smoking status WVIS Unknown [facility] Start: 10-21-2019 End: 08-07-2024 Alcohol intake Current drinker of alcohol (finding) [facility] Start: 10-21-2019 Alcohol Comment occasssionally [facility] Start: 04-25-2020 End: 10-15-2022 Tobacco use and exposure [facility] [place] Start: 07-15-2019 Alcohol Comment occ [place] Start: 12-16-2021 End: 11-03-2022 Exposure to SARS-CoV-2 (event) Not sure [place], [place] Start: 11-03-2022 End: 02-18-2024 Alcohol intake Ex-drinker (finding) [employer] Work Phone: Start: 09-14-2022 [employer] Work Phone: Start: 11-20-2022 End: 03-27-2025 Alcohol intake Lifetime non-drinker (finding) [employer] [facility] Start: 07-10-2023 End: 02-27-2025 History of Social function [facility] [employer] Patient Health Questionnaire 9 item (PHQ-9) total score [Reported] 0 [employer] How hard is it for y ou to pay for the very basics like food, housing, medical care, and heating Very hard [employer] (I/We) worried whedana er (my/our) food would run out before (I/we) got money to buy more. Sometimes true [employer] At any time in the p ast 12 months, were you homeless or living in half-way [including now]? No [employer] Start: 06-17-2024 Alcohol Comment rarely [employer] Start: 09-15-2012 End: 07-28-2019 Sex Female (finding) [employer] [facility] [employer] Start: 1980 Sex assigned at Female [employer] Start: 03-06-2025 Gender identity Identifies as female gender (finding) [employer] Start: 03-06-2025 Sexual orientation Heterosexual (finding) [employer] Medical Equipment Procedure Code Equipment Code Equipment Origin al Text Equipment Identifier Dates Stent 6fr X 22-3 0cm Contour Armida Length - [id number] [facility] Start: 10-22-2019 Clinical Notes 12-26-2021 to 03-27-2025 Stephanie Wheeler - 03/27/2025 7:20 AM EDTPMADELINE Merchant - 03/27/2025 7:20 AM EDTDischarge InstructionsEstee Altamirano RN - 03/05/2025 8:23 PM Araceli Altamirano RN - 03/05/2025 8:23 PM EDT Note Date & Type Note Facility 03-27-2025 History of Presen t illness Narrative Nurse Note: Review of Systems Constitutional: Negative for fever and unexpected weight change. HENT: Negative for facial swelling and sore throat. Eyes: Negative for visual disturbance. Respiratory: Positive for shortness of breath. Negative for cough. Cardiovascular: Negative for chest pain. Gastrointestinal: Negative for abdominal pain, blood in stool and vomiting. Genitourinary: Negative for dysuria and hematuria. Skin: Negative for rash. Neurological: Negative for seizures and syncope. Hematological: Does not bruise/bleed easily. Psychiatric/Behavioral: Negative for suicidal ideas. Nursing Assessment: Physical Exam HPI Kallie Weeks 44 y.o. presents for Clinic visit for Follow-up (4 WK) and Fatigue Patient reports persistent fatigue and SOB. Patient reports she cancelled iron infusions due to starting a new job. She was not able to complete infusions at the [place] [facility]. She reports infusions at the [place] office may be more achievable. Patient reports she is taking oral ferrous sulfate with vitamin C rich food. Patient also reports a persistent red rash on back and bilateral lower extremities. Patient reports discomfort below right ear X 2 days. History I have personally reviewed the following: Tobacco Allergies Meds Problems Med Hx Surg Hx Fam Hx ROS Review of Systems Constitutional: Fatigue HENT: See HPI Eyes: Negative for visual disturbance. Respiratory: Positive for shortness of breath. Negative for cough. Cardiovascular: Negative for chest pain. Gastrointestinal: Negative for abdominal pain, blood in stool and vomiting. Genitourinary: Negative for dysuria and hematuria. Skin: See HPI Neurological: Negative for seizures and syncope. Hematological: Does not bruise/bleed easily. Psychiatric/Behavioral: Negative for suicidal ideas. PHYSICAL EXAM Visit Vitals BP 112/60 (BP Location: Right arm, BP Position: Sitting) Pulse 70 Temp 97.3 F (36.3 C) (Temporal) Resp 18 Ht 1.651 m (5' 5 ) Wt 101.9 kg (224 lb 9.6 oz) LMP 02/16/2025 (Approximate) SpO2 100% BMI 37.38 kg/m Physical Exam Vitals and nursing note reviewed. Constitutional: Appearance: Normal appearance. She is not ill-appearing. Comments: Pleasant female, cooperative with assessment. Answers questions appropriately. HENT: Head: Normocephalic and atraumatic. Right Ear: Hearing normal. Left Ear: Hearing normal. Cardiovascular: Rate and Rhythm: Normal rate and regular rhythm. Heart sounds: Normal heart sounds. Pulmonary: Effort: Pulmonary effort is normal. No respiratory distress. Breath sounds: Normal breath sounds. Abdominal: General: There is no distension. Tenderness: There is no abdominal tenderness. There is no guarding. Musculoskeletal: Right lower leg: No edema. Left lower leg: No edema. Lymphadenopathy: Cervical: Right cervical: No superficial cervical adenopathy. Left cervical: No superficial cervical adenopathy. Skin: General: Skin is warm and dry. Coloration: Skin is pale. Skin is not cyanotic, jaundiced or mottled. Neurological: General: No focal deficit present. Mental Status: She is alert and oriented to person, place, and time. Gait: Gait normal. Psychiatric: Mood and Affect: Mood and affect normal. Speech: Speech normal. ASSESSMENT/PLAN Leslie was seen today for follow-up and fatigue. Diagnoses and all orders for this visit: Iron deficiency anemia, unspecified iron deficiency anemia type Lab Results Component Value Date WBC 7.7 03/05/2025 HGB 8.6 (L) 03/05/2025 HCT 28.2 (L) 03/05/2025 PLATELET 348 03/05/2025 MCV 70.9 (L) 03/05/2025 Continue ferrous sulfate as prescribed. Complete ordered blood work. Referred to [place] infusion clinic. Rash is likely related to anemia. Discussed the importance of receiving iron infusion. - CBC,PLATELETS; Future - AMB REFERRAL TO INFUSION CLINIC Neck discomfort Unremarkable exam. Warm moist wash cloth. Gently massage the area. Sour lemon drops. Tylenol or Ibuprofen for pain management. Notify if symptoms persist or worsen. FUOV 3 months documented in this encounter [facility] 03-06-2025 Hospital Discharg e instructions Ignacio Ortega DO - 03/06/2025 9:00 PM EDT We evaluated you for your abnormal vaginal bleeding. Your hemoglobin is stable. We talked with OB and they would like you to start taking a medication called Lysteda, this should help stop the bleeding. Take 2 tablets 3 times a day up to 5 days, you can stop this medication when you stop bleeding, do not take it for more than 5 days. Follow-up closely with your OB doctor. Return to the emergency department if you develop any worsening or concerning symptoms. documented in this encounter [facility] 03-05-2025 Emergency department Note Patient presented discharge instructions and education to follow up with AGENT LICENSING CLERK and PCP for follow up. Iron rich diet education provided per this RN. Patient verbalized understanding. Patient left this ED ambulatory with a steady gait and even respirations. [facility] 03-05-2025 Emergency department Note Patient presented discharge instructions and education to follow up with AGENT LICENSING CLERK and PCP for follow up. Iron rich diet education provided per this RN. Patient verbalized understanding. Patient left this ED ambulatory with a steady gait and even respirations. Emergency Department Report [facility] EMERGENCY MEDICINE Service Date:.03/05/25 PCP: Brooklyn Tompkins Chief Complaint: Chief Complaint Patient presents with Critical Lab Values Pt reports that she was told by her family And OB to go to the ER for a low hemoglobin level. GELY Weeks is a 44 y.o. female presents to the ED today due to low hemoglobin. Patient has had intermittent vaginal bleeding since 02-16-25. She only changed one underwear pad today and no clots. Patient states AGENT LICENSING CLERK is aware. She is scheduled for Iron infusion. Hemoglobin was 8.9 on 02-17 and it was 8-4 today. Platelet count is 314. Patient denies pelvic pain. She has some fatigue and generalized myalgia. She is on synthroid and last TSH was elevated Patient is not really sure why she was told to come to ER Review of Systems: Review of Systems Constitutional: Positive for fatigue. Negative for activity change, appetite change, chills, diaphoresis, fever and unexpected weight change. HENT: Negative. Eyes: Negative. Respiratory: Negative. Cardiovascular: Negative. Gastrointestinal: Negative. Genitourinary: Positive for vaginal bleeding. Negative for decreased urine volume, difficulty urinating, dyspareunia, dysuria, enuresis, flank pain, frequency, genital sores, hematuria, menstrual problem, pelvic pain, urgency, vaginal discharge and vaginal pain. Musculoskeletal: Negative. Allergic/Immunologic: Negative. Neurological: Negative. Hematological: Negative. All other systems reviewed and are negative. Past Medical History: Past Medical History: Diagnosis Date Anemia 2004 Asthma 2017 Depression 1995 Graves disease Hypothyroidism Migraine 2005 Past Surgical History: Past Surgical History: Procedure Laterality Date TREATMENT W/ D&C Midline 11/20/2022 Laterality: Midline; Surgeon: Ina Kirk MD; Location: [facility] THY[facility] January 2024 Allergies: Allergies Allergen Reactions Sulfa Antibiotics Ceftriaxone Rash Medications: Patient's Medications New Prescriptions No medications on file Previous Medications CETIRIZINE 10 MG TABLET CHOLECALCIFEROL (VITAMIN D3) 50 MCG CAPSULE Take 50 mcg by mouth daily. DOCUSATE 100 MG CAPSULE Take 1 capsule by mouth at bedtime. DOXEPIN 10 MG CAPSULE ESCITALOPRAM 10 MG TABLET Take 1 tablet by mouth daily. FERROUS SULFATE 325 (65 FE) MG TABLET Take 1 tablet by mouth daily. LEVOTHYROXINE 150 MCG TABLET Take 1 tablet by mouth daily. LEVOTHYROXINE 175 MCG TABLET MELOXICAM 15 MG TABLET [id number] (MYFEMBREE) 40-1-0.5 MG TABLET Take 40 mg by mouth daily. TRIAMCINOLONE 0.1 % CREAM CREAM Modified Medications No medications on file Discontinued Medications No medications on file Family History: Family History Problem Relation Age of Onset Lung Cancer Mother Cancer- Other Mother Brain Dysrhythmia Maternal Aunt Lung Cancer Maternal Grandmother Cancer- Other Maternal Grandmother Brain Diabetes Maternal Grandmother Stroke Maternal Grandmother Heart Failure Maternal Grandfather Social History: Social History Socioeconomic History Marital status: Spouse name: Not on file Number of children: Not on file Years of education: Not on file Highest education level: Not on file Occupational History Not on file Tobacco Use Smoking status: Never Smokeless tobacco: Never Vaping Use Vaping status: Never Used Substance and Sexual Activity Alcohol use: Never Drug use: Never Sexual activity: Yes Partners: Male control/protection: None Other Topics Concern Occupational Exposure No Hobby Hazards No Social History Narrative Not on file Social Drivers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 is completed as well as written statement of early loss form [facility] 11-20-2022 Emergency department Note Per Trice ECHEVARRIA pt to go to room 201 on OB [facility] 11-20-2022 Emergency department Note Pt resting on cart, denies needs at this time. She continues to be tearful so emotional support provided. Pt has not yet determined what she would like done with products of conception . Call light is in reach [facility] 11-20-2022 Emergency department Note Emotional support given to pt. She denies current needs at this time. Pt is updated on plan of care and is aware she is awaiting results of US , call light is in reach [facility] 11-20-2022 Emergency department Note US bedside with patient [facility] 11-20-2022 Emergency department Note Foot prints and announcement filled out for mother. Report given to DIDIER Winters. Ultrasound at bedside. [facility] 11-20-2022 Emergency department Note This nurse in to assist Dr. Guerrero with pelvic exam. Copious amounts of bright red blood and clots, fetus delivered during pelvic. Wrapped in gauze. Dr. Guerrero notified patient of miscarriage. Patient tearful. Patient would like to see fetus. This nurse wraps fetus in cloth and allows patient to be with fetus. Boyfriend in room with patient and this nurse to assist patient with emotional and physical needs. Patient cleaned up and new sheets placed on bed. OBGYN called for keepsake box. Patient remains with fetus. [facility] 11-20-2022 Emergency department Note Patient presses call light and states I bled through my pad . This nurse assists patient in changing pad. Previous pad is saturated in bright red blood and one large clot. Patient cleaned up with wet wash cloths and new mesh underwear provided. Patient placed back in bed and denies further needs at this time. [facility] 11-20-2022 Emergency department Note Heat pack provided for pt report of return of cramping pain. VO for tylenol placed. [facility] 11-03-2022 Hospital Discharg e instructions Ninfa Long [...] us to take care of you at [facility]. In the next few days you may receive a survey by mail or e-mail asking about the care you received during this visit. Please complete this if you are able, as this feedback helps us provide the best care possible. The following attachments cannot be sent through Care Everywhere.: Vaginal Bleeding (Finnish)documented in this encounter [facility] Work Phone: 12-26-2021 History of Presen t [...] prior to surgery. [facility] Hospital Discharg e instructions Kassandra [...] within an hour). Call the office at [phone] ([place]) [phone] ([place]) for an appointment in 2 weeks. documented in this encounter [employer] Phone: Evaluation note Diagnosis Menorrhagia with regular cycle Excessive or frequent menstruation documented in this encounter [employer] Phone: evaluation note* Diagnosis Vaginal bleeding in - Primary Unspecified antepartum hemorrhage, unspecified as to episode of care documented in this encounter [employer] Phone: evaluation note* Diagnosis Incomplete miscarriage- Primary Incomplete spontaneous without mention of complication [facility] Diagnosis Muscle spasm of back- Primary Other symptoms referable to back [facility]* Diagnosis Postoperative pain- Primary Other acute postoperative pain Uterine leiomyoma, unspecified location Menorrhagia with regular cycle Excessive or frequent menstruation Dysmenorrhea documented in this encounter [facility] [place] [facility]* Diagnosis Graves' orbitopathy - Both Eyes- Primary Toxic diffuse goiter without mention of thyrotoxic crisis or storm [facility] Diagnosis Screening for malignant neoplasm of cervix Screening for malignant neoplasm of the cervix documented in this encounter [facility] note* Diagnosis Graves' orbitopathy - Both Eyes- Primary Toxic diffuse goiter without mention of thyrotoxic crisis or storm [facility] Diagnosis Screening mammogram, encounter for documented in this encounter [facility] note* Diagnosis Abnormal mammogram of left breast documented in this encounter [facility] note* Diagnosis Iron deficiency anemia, unspecified iron deficiency anemia type- Primary Medication therapy changed too rapidly [facility]* Diagnosis Encounter for medical examination to establish care- Primary Myalgia, multiple sites Family history of autoimmune disorder Family history of other condition Fatigue, unspecified type Iron deficiency anemia, unspecified iron deficiency anemia type Generalized anxiety disorder [facility]* Diagnosis Anemia, unspecified type- Primary documented in this encounter [facility] note* Diagnosis Abnormal vaginal bleeding- Primary Other specified noninflammatory disorder of vagina documented in this encounter [facility] note* Diagnosis Iron deficiency anemia, unspecified iron deficiency anemia type- Primary Neck discomfort [facility] Attachments The following attachments cannot be sent through Care Everywhere. * [employer]: General Info (Finnish) [facility] Attachments The following attachments cannot be sent through Care Everywhere. * Anemia: Iron Deficiency (Finnish) [facility] (n[facility])* Radiology (Emergency) - New Request Specialty Diagnoses / Procedures Referred By Starla juarez Referred To Contact Procedures ECG Artie Burden MD [address] [place] [address] Phone: tel: fax: Referral ID Status Reason Start Date Expiration Date V isits Requested Visits Authorized [id number] New Request 02/17/2025 03/14/2026 1 1 [facility] for visit Narrative* Auth/Cert Specialty Diagnoses / Procedures Referred By Starla juarez Referred To Contact Diagnoses Menorrhagia Endometrial hyperplasia Fibroids MENORRHAGIA, ENDOMETRIAL HYPERPLASIA, FIBROIDS Procedures MD HYSTEROSCOPY,W/ENDO BX DILATATION AND CURETTAGE HYSTEROSCOPY Marlen Porras DO [address] [place] [address] [employer] [address] [place] [address] Referral ID Status Reason Start Date Expiration Date Visits Re quested Visits Authorized 1 1 [employer] Work Phone: Summary Purpose Family History No [...] FoundDocuments on File Type Date Recorded Patient Deputy Clerk Of Court Expl anation Advance Directives and Living Will Power of Heating Unit Mechanic Documents on File Type Date Recorded Patient Deputy Clerk Of Court Expl anation Advance Directives and Livin g Will 10/21/2019 9:48 AM Latest Code Status on File Code Status Date Activated Date Inactivated Comments Full Code 10/21/2019 4:40 PM Documents on File Type Date Recorded Patient Deputy Clerk Of Court Expl anation Advance Directives and Livin g Will 10/21/2019 9:48 AM Latest Code Status on File Code Status Date Activated Date Inactivated Comments Full Code 10/21/2019 4:40 PM 10/22/2019 10:19 PM Latest Code Status on File Code Status Date Activated Date Inactivated Comments Full Code 10/21/2019 4:40 PM 10/22/2019 10:19 PM Documents on File Type Date Recorded Patient Deputy Clerk Of Court Expl anation ACP-Advance Directive ACP-Power of Heating Unit Mechanic Documents on File Type Date Recorded Patient Deputy Clerk Of Court Expl anation Advance Directives and Livin g Will 05/10/2020 11:39 PM Documents on File Type Date Recorded Patient Deputy Clerk Of Court Expl anation ACP-Advance Directive ACP-Power of Heating Unit Mechanic Latest Code Status on File Code Status [...] Activated Date Inactivated Comments 11/20/2022 11:24 AM Discharge Instructions * Attachments The following attachments cannot be sent through Care Everywhere. * UTI (Urinary Tract Infection): Female (Finnish) * Kidney Stone (Finnish) documented in this encounter* Attachments The following attachments cannot be sent through Care Everywhere. * Vaginal Yeast Infection (Finnish) documented in this encounter* Attachments The following attachments cannot be sent through Care Everywhere. * Urinary Tract: Female: Anatomy Sketch (Finnish) documented in this encounter* Attachments The following attachments cannot be sent through Care Everywhere. * Kidney Stone (Finnish) documented in this encounter* Instructions* Saniya Bee CNP - 10/22/2019 Laser Lithotripsy: What to Expect [...] Log into your personal health record on https://[email or web address] and enter Q239 in the Education box to learn more about Laser Lithotripsy: What to Expect at Home. Current as of: March 16, 2019 Content Version: 12.3 3884-4791 [employer]. Care instructions adapted under license by your healthcare professional. If you have questions about a medical condition or this instruction, always ask your healthcare professional. [employer] disclaims any warranty or liability for your [...] your doctor if you can take an nfgc-weh-nvohirl pain medicine, such as acetaminophen (Tylenol),ibuprofen (Advil, [...] Log into your personal health record on https://[employer] and enter P672 in the Education box to learn more about Ureteroscopy: What to Expect at Home. Current as of: June 25, 2015 Content Version: 108 [id number] [employer] Care instructions adapted under license by your healthcare professional. If you have questions about a medical condition or this instruction, always ask your healthcare professional. [employer] disclaims any warranty or liability for your [...] your doctor if you can take an pqsr-btt-ajahvhm medicine. If you think your pain medicine [...] Log into your personal health record on https://[email or web address] and enter B869 in the Education box to learn more about Ureteral Stent Placement: What to Expect at Home. Current as of: June 25, 2015 Content Version: 108 [id number] [employer]. Care instructions adapted under license by your healthcare professional. If you have questions about a medical condition or this instruction, always ask your healthcare professional. [employer] disclaims any warranty or liability for your use of this information. documented in this encounter* Attachments The following attachments cannot be sent through Care Everywhere. * Flank Pain (Finnish) documented in this encounter* Instructions* Rob Ng, [...] Everywhere. * UTI (Urinary Tract Infection): Female (Finnish) * Allergic Reaction (Finnish) * Headache (Finnish) documented in this encounter* Attachments The following attachments cannot be sent through Care Everywhere. * Anemia: Iron Deficiency (Finnish) * Vaginal Bleeding (Finnish) documented in this encounter Assessments Diagnosis Acute [...] Diagnoses Kidney stone Carlos Smith MD [address] [place] [address] Pedro Pablo Degroot MD [address] [address] Status Reason Specialty Diagnoses / Procedures Re ferred By Contact Referred To Contact Open Radiology Diagnoses DUB (dysfunctional uterine bleeding) Procedures US PELVIS COMPLETE NON-OB TRANSABDOMINAL AND TRANSVAGINAL Joseline Cadet MD [address] [place] [address] Specialty Diagnoses / Procedures Referred By Contac t Referred To Contact Procedures US OB TRANSVAGINAL/CERVICAL LENGTH Jose Guerrero MD [address] [place] [address] Referral ID Status Reason Start Date Expiration Date Visits Re quested Visits Authorized [id number] Closed 11/20/2022 12/15/2023 1 1 Specialty Diagnoses / Procedures Referred By Contac t Referred To Contact Radiology Diagnoses Screening mammogram, encounter for Procedures LUCY AIDA DIGITAL SCREEN BILATERAL Nguyen Hernandez, SENIOR PROCESS ENGINEER - CN [address] [facility] [address] [place] [address] Referral ID Status Reason Start Date Expiration Date Visits Re quested Visits Authorized [id number] Closed 06/17/2024 06/17/2025 1 1 Hospital Course * Preeti Garzon MD - 10/22/2019 4:53 PM EDT DISCHARGE SUMMARY Patient: Kallie Keyes Date of : 1980 Site: [facility] Family Provider: Desi Manjarrez MD Admit Date: 10/21/2019 Discharge Date/Time: 10/22/19 Evening Disposition: Home Clinical Summary Hospital Course: Kallie Keyes is a 38 y.o. female patient of Desi Manjarrez MD with a history of kidney stones. Transferred from [place] with 7 mm left UPJ stone with [...] Physician(s) Family Provider: Desi Manjarrez MD, Address: [address] [place] [id number] Follow Up: Preeti Garzon MD [address] [address] Follow up Please contact the office to [...] section and content) DATE CREATED AUTHOR 01/28/2018 [facility] DATE CREATED AUTHOR AUTHOR'S ORGANIZ ATION 08/02/2019 [facility] DATE CREATED AUTHOR AUTHOR'S ORGANIZ ATION 10/31/2019 [facility] DATE CREATED AUTHOR AUTHOR'S ORGANIZ ATION 10/31/2019 [facility] DATE CREATED AUTHOR AUTHOR'S ORGANIZ ATION 10/31/2019 [facility] DATE CREATED AUTHOR AUTHOR'S ORGANIZ ATION 05/16/2020 [facility]ter DATE CREATED AUTHOR AUTHOR'S ORGANIZ ATION 08/28/2020 [facility] DATE CREATED AUTHOR AUTHOR'S ORGANIZ ATION 08/04/2022 [facility] DATE CREATED AUTHOR AUTHOR'S ORGANIZ ATION 10/26/2023 [facility] DATE CREATED AUTHOR AUTHOR'S ORGANIZ ATION 11/15/2023 [facility] DATE CREATED AUTHOR AUTHOR'S ORGANIZ ATION 11/25/2023 [facility] DATE CREATED AUTHOR AUTHOR'S ORGANIZ ATION 02/01/2024 [facility] DATE CREATED AUTHOR AUTHOR'S ORGANIZ ATION 11/12/2024 [facility] DATE CREATED AUTHOR AUTHOR'S ORGANIZ ATION 03/10/2025 [facility] DATE CREATED AUTHOR AUTHOR'S ORGANIZ ATION 03/11/2025 [facility] DATE CREATED AUTHOR AUTHOR'S ORGANIZ ATION 03/22/2025 [facility] DATE CREATED AUTHOR AUTHOR'S ORGANIZ ATION 04/03/2025 Adriana moreno Reason for Visit (unrecogniz ed section [...] location Uterine leiomyoma, unspecified location [D25.9] Procedures MD LAPS MYOMECTOMY EXC 1-4 MYOMAS 250 GM/< UTERINE MYOMECTOMY ROBOTIC- LAPAROSCOPIC Marlen Porras, DO [address] [place] [address] [facility] [address] [place] [address] Referral ID Status Reason Start Date Expiration Date Visits Re quested Visits Authorized [id number] 1 1 Reason Comments New Patient Specialty Diagnoses / Procedures Referred By Starla juarez Referred To Contact Ophthalmology Diagnoses Graves disease Thyroid eye disease Betziada Sierra MD [address] [facility] [facility] [address] [place] [address] Ioana Clinton MD [address] [facility] [address] [place] [address] Referral ID Status Reason Start Date Expiration Date V isits Requested Visits Authorized [id number] Pending Review 02/04/2024 02/28/2025 1 1 Specialty Diagnoses / Procedures Referred By Contac t Referred To Contact Radiology Diagnoses Screening mammogram, encounter for Procedures LUCY AIDA DIGITAL SCREEN BILATERAL Nguyen Hernandez APRN - CNM [address] [facility] [place] [address] Referral ID Status Reason Start Date Expiration Date Visits Re quested Visits Authorized [id number] Closed 06/17/2024 06/17/2025 1 1 Specialty Diagnoses / Procedures Referred By Rudyac t Referred To Contact Radiology Diagnoses Abnormal mammogram of left breast Procedures US BREAST LIMITED LEFT US BREASt COMPLETE LEFT Nguyen Hernandez APRN - CN [address] [facility] [place] [address] Referral ID Status Reason Start Date Expiration Date Visits Re quested Visits Authorized [id number] Open 08/11/2024 08/11/2025 1 1 Specialty Diagnoses / Procedures Referred By Starla t Referred To Contact Radiology Diagnoses Abnormal mammogram of left breast Procedures LUCY AIDA DIGITAL DIAGNOSTIC UNILATERAL LEFT LUCY DIGITAL DIAGNOSTIC W OR WO CAD LEFT Nguyen Hernandez APRN - CN [address] [facility] [place] [address] Referral ID Status Reason Start Date Expiration Date Visits Re quested Visits Authorized [id number] Closed 08/11/2024 08/11/2025 1 1 Reason Comments Arm Pain Pt in complaining of left arm and shoulder pain that started yesterday. Reason Comments New Patient 44 YOF presents to [facility]. Pt has mult-issues she is concerned about and would like to discuss whatever the provider has time. Specialty Diagnoses / Procedures Referred By Contac t Referred To Contact Family Medicine Diagnoses Encounter to establish care System, Provider Not In [place] Tompkins APRN-TMD TEACHER ASSISTANT [address] [place] [address] Phone: tel: Referral ID Status Reason Start Date Expiration Date V isits Requested Visits Authorized [id number] New Request 02/05/2025 03/02/2026 1 1 Reason Comments Critical Lab Values Pt reports that she was told by her family And OB to go to the ER for a low hemoglobin level. Reason Comments Abnormal Lab Patient was sent ove r by Nguyen Hernandez for low Hgb and increased fatigue. Patient is scheduled for an infusion on Sunday as she has chronically low Hgb. Reason Comments Follow-up 4 WK Fatigue Jessica Ramirez RN - 10/21/2019 1:39 PM Jessica Baxter RN - 10/21/2019 1:27 PM Jessica Baxter RN - 10/21/2019 12:56 PM EDTPSophia li RN - 10/21/2019 9:43 AM EDT ED Notes (unrecognized secti on and content) Notified transfer center that [facility] eta 10 minutes, cancel [facility] Frannie calls from transfer center, pt assigned to room 327 bed 2 at [place], [facility] eta 2-3 hours. Bre calls from transfer center, pt accepted at [place] by Dr. Garzon, she will call back with bed assignment and EMS eta Pt aware of needing a urine sample. Cup placed on cart. Pt directed where the bathroom is and aware that is what we will be waiting on to do further testing Dr Janessa maynard for first evaluation of pt. ED PROVIDER NOTE [facility] EM[facility] DE[facility] NAME: Kallie Keyes AGE: 38 y.o. : 1980 VISIT DATE: 10/21/2019 CSN: [id number] PCP: Desi Manjarrez MD Chief Complaint Patient [...] file Gets together: Not on file Attends worship service: Not on file Active member of [...] Yellow Clarity, Urine Cloudy (A) Clear Specific Smoot 1.020 1.005 - 1.025 pH, Urine 8.5 [...] Nonobstructing right renal calculus. IUD in place. [employer] Workstation ID: [id number] Procedures MDM Number of Diagnoses or Management Options Ureteral stone with hydronephrosis: Diagnosis management comments: CT abdomen pelvis showing 6 to 7 mm left ureteral stone with hydronephrosis, based on the stone size, it is not expected to pass by itself, plan to transfer to [facility] with urology service, patient is willing to go anywhere but prefer somewhere closer. Currently symptoms controlled. . . Clinical Impression: 1. Ureteral stone with hydronephrosis ED Disposition ED Disposition Condition Comment Transfer to Another Facility Kallie Keyes to be transferred to [place] or somewhere closer like [place] or [place] Follow-up Information Follow-up information has not been specified. Contact information for after-discharge care Follow-up information has not been specified. Theodore Escalante MD 10/21/19 1201 Pt is here today for possible kidney stones that she knows she has from [place]. She states that she had left pelvic pain that started last night and she was started to get nauseated with vomiting twice. She is alert and oriented with no other complications at thist judie documented in this encounter ED PROVIDER NOTE [facility] EMERGENCY DEPARTMENT NAME: Kallie Keyes AGE: 39 y.o. : 1980 VISIT DATE: 05/10/2020 CSN: [id number] PCP: Desi Manjarrez MD Chief Complaint Patient [...] WITH LASER; Surgeon: Preeti Garzon MD; Location: [facility] Main OR; Service: Urology History reviewed. No [...] file Gets together: Not on file Attends worship service: Not on file Active member of [...] ED Disposition ED Disposition Condition Comment Discharge Arsh Keyes discharged to home/self care in stable condition. Follow-up Information 1. Desi Manjarrez MD. Specialty: Family Medicine [address] [place] [address] Contact information for after-discharge care Follow-up information has not been specified. New Prescriptions nitrofurantoin, macrocrystal-monohydrate, (MACROBID) 100 MG capsule Take 1 (one) capsule (100 mg total) by mouth 2 (two) times a day for 7 days . Rob Ng DO 05/11/20 0018 PT was seen at [facility] two days ago and was dx [facility] UTI being treated with Bactrim. took med [...] Name: Kallie Keyes Admit Date: MR #: [id number] : 1980 The H&P has been reviewed and the patient has been examined. I concur with the findings of the H&P. There are no significant changes. It is appropriate to proceed with the planned procedure. Preeti Garzon MD 10/22/2019 1:12 PM HISTORY AND PHYSICAL Patient Name: Kallie Keyes Admit Date: MR #: [id number] : 1980 Physicians: Desi Manjarrez MD (Family); Theodore Escalante MD (Referring) Chief Complaint/Reason for Visit: Flank pain History of Present Illness: Kallie Keyes is a 38 y.o. female presenting from [facility] with c/o left flank pain. The [...] file Gets together: Not on file Attends worship service: Not on file Active member of [...] 10/22/2019 Clinician: Preeti Garzon MD OR Staff: Shaper Machine Hand: Shira Lassiter RN Laser Staff: Lindsey Dillard RN Recruitment Intern: Jade Ramesh, TECHNOLOGIST Scrub Person: ST Caroline Anesthesia Staff: Anesthesiologist: Florentino Euceda MD; Lou Lindquist MD SUPERVISOR BOILERMAKING SHOP: Keira Fontenot CRNA Surgeon(s):Surgeon(s) and Role: * Preeti Garzon MD - Primary Patient Name: Kallie Keyes MR #: [id number] PREOPERATIVE DIAGNOSIS Left ureteral stone. Right renal [...] Garcia cystoscopy was performed with a 22 Hungarian rigid cystourethroscope which revealed the bladder as [...] Care Teams (unrecognized sec tion and content) Human Resources Designate Relationship Specialty Start Date End Date Desi Manjarrez MD [address] [id number] PCP - General 05/08/15 Human Resources Designate Relationship Specialty Start Date End Date Desi Manjarrez MD [address] [id number] PCP - General 05/08/15 Human Resources Designate Relationship Specialty Start Date End Date Desi Manjarrez MD [address] [id number] PCP - General 05/08/15 Human Resources Designate Relationship Specialty Start Date End Date Desi Manjarrez MD [address] [place] [address] PCP - General 05/08/15 Human Resources Designate Relationship Specialty Start Date End Date Desi Manjarrez MD [address] [id number] PCP - General 05/08/15 Human Resources Designate Relationship Specialty Start Date End Date Desi Manjarrez MD [address] [facility] [place] [address] PCP - General Family Medicine 07/28/19 Human Resources Designate Relationship Specialty Start Date End Date Desi Manjarrez MD [address] [place] [facility] [place] [address] PCP - General 05/08/15 Human Resources Designate Relationship Specialty Start Date End Date Desi Manjarrez MD [address] [facility] [place] [address] PCP - General Family Medicine 07/28/19 Human Resources Designate Relationship Specialty Start Date End Date Desi Manjarrez MD [address] [place] [facility] [place] [address] PCP - General 05/08/15 Human Resources Designate Relationship Specialty Start Date End Date Desi Manjarrez MD [address] [facility] [place] [address] PCP - General Family Medicine 07/28/19 Human Resources Designate Relationship Specialty Start Date End Date Desi Manjarrez MD [address] [place] [address] PCP - General 05/08/15 Human Resources Designate Relationship Specialty Start Date End Date Desi Manjarrez MD [address] [facility] [place] [address] PCP - General Family Medicine 07/28/19 Human Resources Designate Relationship Specialty Start Date End Date Desi Manjarrez MD [address] [place] [facility] [place] [address] PCP - General 05/08/15 Human Resources Designate Relationship Specialty Start Date End Date Desi Manjarrez MD [address] [place] [address] PCP - General 05/08/15 Human Resources Designate Relationship Specialty Start Date End Date Desi Manjarrez MD PCP - General Family Medicine 07/28/19 Human Resources Designate Relationship Specialty Start Date End Date Brooklyn Tompkins APRN-CNP [address] [place] [address] PCP - General Geriatric Medicine 02/27/25 Human Resources Designate Relationship Specialty Start Date End Date Brooklyn Tompkins APRN-CNP [address] [place] [address] PCP - General Geriatric Medicine 02/27/25 Human Resources Designate Relationship Specialty Start Date End Date Desi Manjarrez MD [address] [place] [address] PCP - General 05/08/15 Human Resources Designate Relationship Specialty Start Date End Date Brooklyn Tompkins APRN-CNP PCP - General Geriatric Medicine 02/27/25 Ordered Prescriptions (unrec ognized section and content) [...] for Pain 20 tablet 0 02/18/2024 02/17/2025 Prescription Sig Dispense Quantity Refills Last Filled Start Date End Date tranexamic acid (LYSTEDA) 650 MG TABS tablet Take 2 tablets by mouth 3 times daily for 5 days Take 2 tablets by mouth 3 times daily for up to 5 days. Stop taking if bleeding stops. 30 tablet 03/06/2025 Scheduled Active and Recently Administ ered Medications [...] surgery) 1309 (Given - Provid er: Joana Mccauley RN) dimenhyDRINATE (DRAMAMINE) tablet 50 mg (COMPLETED) 50 mg, Oral, ONCE, 1 dose, On Sun02/18/24 at 1300, Pre-op (day of surgery) 1309 (Given - Provid er: Joana Mccauley RN) enoxaparin (LOVENOX) injection 40 mg (COMPLETED) [...] mg (COMPLETED)(Linked Group 1) 500 mg, IntraVENous, CARAMEL CUTTER HELPER TO O.R., 1 dose, On Sun02/18/24 [...] at 100 mL/hr, Administer over 60 Minutes, CARAMEL CUTTER HELPER TO O.R., On Sun02/18/24 at 1300, For 1 dose, Administer within 1 hour prior to incision., Pre-op (day of surgery) 1433 (New Bag - Prov ider: Joana Mccauley RN)1521 (Stopped - Provider: Gege Lim RN) [...] 1308 (New Bag - Prov ider: Joana Mccauley, DIDIER)1533 (NoRateChange - Provider: ANGELLA Cool CRNA)1711 (Anesthesia [...] at 100 mL/hr, Administer over 60 Minutes, CARAMEL CUTTER HELPER TO O.R., On Sun02/18/24 at 1300, For 1 dose
Administer within 1 hour prior to incision.
Pre-op (day of surgery) And levoFLOXacin (LEVAQUIN) 500 MG/100ML infusion 500 mg (COMPLETED)Jump to med 500 mg, IntraVENous, CARAMEL CUTTER HELPER TO O.R., 1 dose, On Sun02/18/24 at 1300
Antimicrobial Indications: Surgical Prophylaxis
Administer within 1 hour prior to incision.
Pre-op (day of surgery) Scheduled Medication Order 02/16/2025 02/17/2025 02/18/2025 Docusate (COLACE) capsule 100 mg (COMPLETED) 100 mg, Oral, ONCE, 1 dose, On Sun02/18/25 at 0115 0052 (Given - Provid er: Venice Gomez RN) Escitalopram (LEXAPRO) tablet 10 mg (COMPLETED) 10 mg, Oral, ONCE, 1 dose, On Sun02/18/25 at 0015 0025 (Given - Provid er: Salvador Vaughn RN) ferrous sulfate tablet 325 mg (COMPLETED) 325 mg, Oral, ONCE, 1 dose, On Sun02/18/25 at 0045 0052 (Given - Provid er: Venice Gomez RN) Scheduled Medication Order 03/04/2025 03/05/2025 03/06/2025 sodium chloride 0.9 % bolus 1,000 mL (COMPLETED) 1,000 mL, IntraVENous, at 983.6 mL/hr, Administer over 61 Minutes, ONCE, On Sun03/06/25 at 1945, For 1 dose, For adult patients weighing > 55 kg (120 lbs.) and less than <50 years of age initiate 0.9NS at 500 mL/ hr. All bolus orders are to be given over 10 to 15 minutes 2017 (New Bag - Prov ider: Arline Calvo RN)2111 (Stopped - Provider: Arline Calvo RN) FOR RECORDS PERTAINING TO PATIENTS WHO ARE [...] BE BASED ON THE PRIMARY CLINICAL RECORDS. [employer] [facility]. provides no warranty or guarantee of the accuracy or completeness of information in this document.
== END 2025-04-07 20:58 | disposition home or self-care (01) ==
PROVIDERS: PCP Psychiatry & Neurology Neurology; Visit Provider Psychiatry & Neurology Neurology
DX: G47.33 Obstructive sleep apnea (adult) (pediatric) (principal)
CPT/HCPCS: 95811